=== PATIENT | male | born 1950 | race Caucasian/White ===

== ENCOUNTER 2017-07-24 12:01 | Emergency (ER) | payer BC ==
[~2017-07-24] VITALS: Ht 177.8 cm; Wt 140.8 kg
[~2017-07-24 12:01] MED LIST: ASCA500 PO; ASPCH81 PO; FRS/40 PO; LISI-729 PO; MULT-506 PO; OMEG10007 PO; POTA20TA16 PO; VERA120T15 PO; VITA100C4 PO
[2017-07-24 12:11] VITALS: TEMP 36.7; Ht 177.8 cm; Wt 140.8 kg
[2017-07-24] MEDS ORDERED: SIMV20TA2 PO (13:04)
[2017-07-24] MEDS ORDERED: DIPH1TAB87 PO (13:04)
[2017-07-24] MEDS ORDERED: SPIR25TA PO (13:04)
--- NOTE | 2017-07-24 13:26 | EMERGENCY ROOM VISIT NOTE ---
ED Visit Note First contact with patient: 12:19 CHIEF COMPLAINT: Skin rash below his eyes HISTORY OF PRESENT ILLNESS: This 67-year-old male presents the ER with chief complaint of redness, swelling, burning and mild pruritus under both his eyes. The patient states his eyes themselves are fine. The patient denies any visual changes. The patient states the symptoms started on Thursday. He tried antibiotic ointment and took Benadryl for the itch. He states the Benadryl helped the itch but the antibiotic ointment seemed to make the burning worse on his face. The patient states that he has had this once in the past 8 years ago and they never found out what it was. He states he took some type of antibiotic and several days later went away. The patient denies any new environmental exposures or any new glasses. REVIEW OF SYSTEMS: 6 system review was performed and was negative unless stated otherwise in history of present illness. PMH: Hypertension, heart disease, kidney disease, heart valve placement SOCIAL HISTORY: Patient lives with his brother. The patient admits to tobacco use and occasional alcohol use. PHYSICAL EXAM: Vital Signs: Were reviewed See nurses' notes. GEN.: 67-year-old white male appears in no acute distress. MENTAL Status: Alert and oriented 3. FACE: The patient has erythema and edema over both infraorbital regions bilaterally. There is some dry scaling noted bilaterally. There is slight increased temperature to touch. The remainder of the skin is clear. EMERGENCY COURSE: The patient was evaluated by myself and independently by Dr. Bridges who agrees with treatment plan. Dr. Bridges had consulted dermatology with some photos of the patient and they felt that this was contact dermatitis. They also recommended treatment with Vaseline, avoid fragrance soaps. DIAGNOSIS: Contact dermatitis DISCHARGE INSTRUCTIONS & TREATMENT: Continue Benadryl as needed for itch. Apply Vaseline to the area at least once daily in the evening. Avoid any fragrance soaps or shampoos. Cover that area if you're going to be out in the cold environment. If symptoms persist or worsen, follow-up with your family doctor for referral to dermatology. Current/Historical Medications Scheduled Ascorbic Acid (Vitamin C *), 500 MG PO QAM Aspirin (Aspirin Tab-Chewable *), 81 MG PO QAM Diphenhydramine Hcl (Benadryl Allergy), 25 MG PO Q4H Fish Oil (Grawn-3), 1 CAP PO QAM Furosemide (Lasix), 40 MG PO HS Multivitamin (Multivitamin), 1 TAB PO QAM Simvastatin (Zocor), 20 MG PO QPM Spironolactone (Aldactone), 25 MG PO QAM Allergies Coded Allergies: No Known Allergies (Verified , NONE, 07/24/17) Vital Signs Date Time Temp Pulse Resp B/P (MAP) Pulse Ox O2 Delivery O2 Flow Rate FiO2 07/24/17 12:11 36.7 94 18 144/98 96 Room Air Departure Information Referrals Jean-Claude Bassett M.D. (PCP) Patient Instructions My [facility]
[2017-07-24 13:37] VITALS: BP 139/82; PULSE 80; O2SAT 96
--- NOTE | 2017-07-24 17:47 | EMERGENCY ROOM VISIT NOTE ---
ED Visit Note First contact with patient: 12:19 I have personally seen and evaluated the patient with the PA. I agree with the diagnosis and management decisions and have been personally involved in the case. After my evaluation of the patient's rash, it seems that this is likely a contact irritant. The patient was advised to use a Vaseline ointment and a mild soap to wash. He will follow-up with his physician for reevaluation and return to the ER for worsening of symptoms or any medical concerns. Please see Luz Maria Deng PA-C's notes for further details of the history, physical and visit.
== END 2017-07-24 13:38 | disposition home or self-care (01) ==
LOC: C.EDB 12:02 → C.EDD 13:38
DX: L25.9 Unspecified contact dermatitis, unspecified cause (principal); I10 Essential (primary) hypertension; Z95.2 Presence of prosthetic heart valve; Z72.0 Tobacco use; Z79.82 Long term (current) use of aspirin; Z79.899 Other long term (current) drug therapy

== ENCOUNTER 2018-09-07 13:30 | Inpatient (IN) ==
[2018-09-07] MEDS ORDERED: PANTOprazole 80 MG in DEXTROSE 5% 100 ML IV ONE (14:12)
[2018-09-07] MEDS ORDERED: PANTOprazole 40 MG in DEXTROSE 5% 100 ML IV SCH (14:15)
[2018-09-07 14:28] LABS: Basophils # (auto) 0.03 K/uL (0-0.2); Basophils % (auto) 0.4 %; Eosinophils # (auto) 0.42 K/uL (0-0.5); Eosinophils % (auto) 5.4 %; Hematocrit (blood only) 31.1 % (42-52); Hemoglobin 9.3 g/dL (14.0-18.0); Immature Granulocytes # (auto) 0.01 K/uL (0.00-0.02); Immature Granulocytes % (auto) 0.1 %; Lymphocytes # (auto) 1.96 K/uL (1.2-3.4); Lymphocytes % (auto) 25.4 %; Mean Corpuscular Hgb Conc 29.9 g/dL (32-36); Mean Corpuscular Volume 82.5 fL (80-100); Mean Platelet Volume 9.8 fL (7.4-10.4); Monocytes # (auto) 0.79 K/uL (0.11-0.59); Monocytes % (auto) 10.2 %; Neutrophils # (auto) 4.51 K/uL (1.4-6.5); Neutrophils % (auto) 58.5 %; Nucleated RBC # (auto) 0.04 K/uL (0-0); Nucleated RBC % (auto) 0.5 %; Platelet Count 288 K/uL (130-400); RDW Coefficient of Variation 15.1 % (11.5-14.5); RDW Standard Deviation 45.6 fL (36.4-46.3); Red Blood Count 3.77 M/uL (4.7-6.1); White Blood Count 7.72 K/uL (4.8-10.8)
[2018-09-07 14:42] LABS: INR 1.1 (0.9-1.1); Partial Thromboplastin Time 25.8 Seconds (21.0-31.0); Prothrombin Time 11.5 Seconds (9.0-12.0)
[2018-09-07 14:45] LABS: Alanine Aminotransferase 14 U/L (12-78); Albumin Level 2.3 gm/dl (3.4-5.0); Aspartate Aminotransferase 13 U/L (15-37); BUN Creatinine Ratio 21.1 (10-20); Blood Urea Nitrogen 22 mg/dl (7-18); Calcium 8.1 mg/dl (8.5-10.1); Carbon Dioxide 29 mmol/L (21-32); Chloride 107 mmol/L (98-107); Est GFR (African American) 82.6; Est GFR (Non-African American) 71.3; Glucose 68 mg/dl (70-99); Potassium 4.4 mmol/L (3.5-5.1); Sodium 140 mmol/L (136-145)
[2018-09-07 14:47] LABS: Albumin Globulin Ratio 0.6 (0.9-2); Alkaline Phosphatase 73 U/L (45-117); Bilirubin,Total 0.3 mg/dl (0.2-1); Globulin 3.9 gm/dl (2.5-4.0); Total Protein 6.2 gm/dl (6.4-8.2)
--- NOTE | 2018-09-07 15:17 | XRay Report ---
SINGLE VIEW CHEST CLINICAL HISTORY: GI bleeding. FINDINGS: An AP, portable, upright chest radiograph is compared to study dated 08/11/2018. The examina tion is degraded by portable technique and patient rotation. The patient is status post midline ster notomy. The heart is enlarged and there is atherosclerotic calcification of the thoracic aorta. There is pulmonary vascular congestion and interstitial edema. There are small pleural effusions with biba silar consolidation. No pneumothorax is seen. The skeletal structures are osteopenic. The bony thorax is grossly intact. Degenerative changes noted in the shoulders and thoracic spine. IMPRESSION: 1. Cardiomegaly with evidence of congestive failure and interstitial edema. 2. There are small pleural effusions with bibasilar consolidation. This could represent atelectasis a nd/or pneumonia and clinical correlation will be required. Electronically signed by: Denzel Quarles M.D. 09/07/2018 3:16 PM
--- NOTE | 2018-09-07 15:26 | History & Physical Report ---
Date of Service September 07, 2018 History of Present Illness Primary Care Provider: Erika Negro Allergies Allergy/AdvReac Type Severity Reaction Status Date / Time No Known Allergies Allergy NONE Verified 08/11/18 11:48 Home Medications Home Medications Medication Instructions Recorded Confirmed Type amoxicillin 4 cap PO DIRECTED 08/11/18 08/11/18 History aspirin [Aspirin Low Dose] 81 mg PO DAILY 08/11/18 08/11/18 History carvedilol 6.25 mg PO BID 08/11/18 08/11/18 History folic acid 400 mcg PO DAILY 08/11/18 08/11/18 History furosemide 40 mg PO DAILY 08/11/18 08/11/18 History uvesyrve-qre-WE-lycopen-lutein 1 tab PO DAILY 08/11/18 08/11/18 History [Complete Multi 50+] simvastatin 40 mg PO HS 08/11/18 08/11/18 History spironolactone 25 mg PO DAILY 08/11/18 08/11/18 History Past Med/Surg History Medical History HTN (hypertension) (Chronic) Heart disease (Chronic) Kidney disease (Chronic) Surgical History H/O aortic valve replacement (Resolved) Family History Other Colon cancer Social History Preferred Language: Kazakh Current Living Situation: Family Feels Safe at Home: Yes Smoking Status: Former smoker Physical Exam Vital Signs (Past 24 Hours): Last Vital Signs Temp 36.7 C 09/07/18 13:32 Pulse 55 L 09/07/18 14:59 Resp 22 09/07/18 14:59 BP 136/81 09/07/18 14:59 Pulse Ox 96 09/07/18 14:59 Results & Data Diagnostic Findings SINGLE VIEW CHEST CLINICAL HISTORY: GI bleeding. FINDINGS: An AP, portable, upright chest radiograph is compared to study dated 08/11/2018. The examination is degraded by portable technique and patient rotation. The patient is status post midline sternotomy. The heart is enlarged and there is atherosclerotic calcification of the thoracic aorta. There is pulmonary vascular congestion and interstitial edema. There are small pleural effusions with bibasilar consolidation. No pneumothorax is seen. The skeletal structures are osteopenic. The bony thorax is grossly intact. Degenerative changes noted in the shoulders and thoracic spine. IMPRESSION: 1. Cardiomegaly with evidence of congestive failure and interstitial edema. 2. There are small pleural effusions with bibasilar consolidation. This could represent atelectasis and/or pneumonia and clinical correlation will be required. ECG Additional Comments: 07-SEP-2018 14:55:17 [facility] Atrial fibrillation Rightward axis Non-specific intra-ventricular conduction block Nonspecific T wave abnormality Abnormal ECG When compared with ECG of 11-AUG-2018 11:06, Significant changes have occurred 25mm/s 10mm/mV 150Hz 8.0 SP2 12SL 241 GENEVIEVE: 10 Referred by: REFERRED SELF Unconfirmed Vent. rate 66 BPM PA interval * ms QRS duration 126 ms QT/QTc 448/469 ms P-R-T axes * 108 211
--- NOTE | 2018-09-07 16:13 | History & Physical Report ---
Date of Service September 07, 2018 Assessment & Plan (1) GI bleed: -Admit the patient to telemetry -Hemoglobin of 9.3, BUN elevated at 21 -Trend hemoglobin Q6H - GI consult, Protonix 40 mg IV BID -Starting to be a Jain, therefore patient refusing any whole blood or blood products. -Continue IVF's 125 ml/hr - n.p.o. for now (2) Anemia: Unknown cause of chronic GI bleeding. Patient does report history of hemorrhoids. Documentation of refusal of colonoscopies in the past. This will need to be discussed with patient once bleed is resolved, and possibly have inpatient versus outpatient scope (3) Chronic anticoagulation: -Eliquis 5 mg bid on hold with GI bleed. This was started for new onset A. fib during most recent hospital stay at OSH. (4) Seizure: -We will continue on Keppra 500 mg bid (5) DM type 2 (diabetes mellitus, type 2): Patient's most recent A1c was equal to 11.2 during OSH hospitalization. - Reduce Levemir 22 units qpm in half for tonights dose: 11 U tonight, with NPO status. - ISS with Accu-Cheks Achs -Once allowed diet DM/HH diet (6) Afib: - Holding aspirin and eliquis as above. - EKG reviewed. - Cardiology consulted (7) Aortic stenosis: (8) H/O aortic valve replacement: (9) Nonischemic cardiomyopathy: -Patient had TTE completed during OSH stay, which showed reduced EF of 45% but no thrombus. -Follows with Dr. Leone -We will continue on carvedilol, spironolactone. (10) HTN (hypertension): -Continue spironolactone 25 mg daily, carvedilol 6.25 mg twice daily -She appears to be significantly volume overloaded and bilateral lower extremities, he was recently told to stop taking Lasix upon discharge from OSH - Lasix IV 40 mg x 1 dose for leg swelling. Patient does not have a history of CHF he has followed with Dr. Leone in the past for known aortic stenosis status post valve replacement. (11) HLD (hyperlipidemia): Continue statin therapy (12) CVA (cerebral vascular accident): -Acute infarct in the left MCA on 08/11 which then converted to left posterior parietal lobe with petechial hemoconversion. Patient has residual slurred speech, slow speech at baseline. Will consult speech for continued inpatient therapy. -Holding Eliquis and aspirin in the setting of GI bleed (13) Urinary retention: -Continue Flomax (14) DVT prophylaxis: Teds, scds, no chemical prophylaxis with GI bleed. History of Present Illness Chief Complaint: GI bleed Primary Care Provider: Erika Negro This is a 68-year-old male with past medical history of new onset A. fib, DM type II, seizure disorder, HLD, HTN, history of aortic valve replacement 8 years ago, aortic stenosis, internal hemorrhoids and 6 months of ongoing hematochezia. The patient was recently admitted to [facility] from 08/11/18 to 08/17/18 due to significant metabolic derangements, CVA new onset A. fib, DKA and seizure. Patient required being intubated for 24 hours and 6 was successfully extubated on 08/12. During that admission the patient was started on Eliquis 5 mg BID and aspirin 81 mg daily for CHADsVASC score of 6. Patient's history does include family history of colon cancer however has refused colonoscopies in the past. He has had ongoing hematochezia for 6 months however has remained fairly hemodynamically stable. Today the patient developed increased right lower quadrant abdominal pain which made him more concerned. He also noticed increasing shortness of breath, dyspnea on exertion, weakness and generalized fatigue in the past few days. He denies dark or tarry stools. Denies nausea or vomiting. Patient's oral intake has been at its baseline. Hemoglobin on 08/11/18 at [facility] was 13.6, on the day of discharge from [facility] was 10.6. Today the patient's hemoglobin is 9.3. The patient is studying to be a Jain, therefore is refusing all whole blood and blood products. Allergies Allergy/AdvReac Type Severity Reaction Status Date / Time No Known Allergies Allergy NONE Verified 08/11/18 11:48 Home Medications Home Medications Medication Instructions Recorded Confirmed Type amoxicillin 4 cap PO DIRECTED 08/11/18 09/07/18 History aspirin [Aspirin Low Dose] 81 mg PO DAILY 08/11/18 09/07/18 History carvedilol 6.25 mg PO BID 08/11/18 09/07/18 History folic acid 400 mcg PO DAILY 08/11/18 09/07/18 History vxpuhlyj-ute-PN-lycopen-lutein 1 tab PO DAILY 08/11/18 09/07/18 History [Complete Multi 50+] spironolactone 25 mg PO DAILY 08/11/18 09/07/18 History acetaminophen [Tylenol] 650 mg PO Q4 PRN 09/07/18 09/07/18 History apixaban [Eliquis] 5 mg PO BID 09/07/18 09/07/18 History ascorbic acid (vitamin C) [Vitamin 500 mg PO DAILY 09/07/18 09/07/18 History C] hydrocortisone [Proctosol HC] 1 applic VA BID 09/07/18 09/07/18 History insulin detemir U-100 [Levemir 22 unit SUBCUT QPM 09/07/18 09/07/18 History U-100 Insulin] insulin lispro [Humalog U-100 6 unit SUBCUT TIDM 09/07/18 09/07/18 History Insulin] levetiracetam [Keppra] 500 mg PO BID 09/07/18 09/07/18 History omega 0-msv-luo-fish oil [Fish Oil] 1 cap PO DAILY 09/07/18 09/07/18 History omeprazole 20 mg PO DAILY 09/07/18 09/07/18 History simvastatin 20 mg PO PM 09/07/18 09/07/18 History tamsulosin [Flomax] 0.4 mg PO QPM 09/07/18 09/07/18 History Past Med/Surg History Medical History HTN (hypertension) (Chronic) Heart disease (Chronic) Kidney disease (Chronic) Surgical History H/O aortic valve replacement (Resolved) Family History Other Colon cancer Social History Communication Ability: Effective [employer] Required: No Beliefs That Will Affect Care: Anabaptist Current Living Situation: Family Other Information That Helps Us Care for You: No Feels Safe at Home: Yes Safety Concerns: Feels Safe At This Time Smoking Status: Never smoker Hx Alcohol Use: No Hx Substance Use: No Review of Systems Constitutional: No fever, sweats or chills Eyes: No diplopia, no worsening or blurred vision ENT: normal hearing, no trouble swallowing Respiratory: No cough, sputum, dyspnea at rest or on exertion Cardiovascular: No chest pain, tightness or palpitations Abdomen: As per HPI. Musculoskeletal: No joint pain, calf pain, swelling Neurologic: No weakness, numbness/tingling, or balance problems Psychiatric: No anxiety or depression Skin: No rash or itch Physical Exam Vital Signs (Past 24 Hours): Last Vital Signs Temp 36.7 C 09/07/18 13:32 Pulse 55 L 09/07/18 14:59 Resp 22 09/07/18 14:59 BP 136/81 09/07/18 14:59 Pulse Ox 96 09/07/18 14:59 Physical Exam: General: awake, alert, no apparent distress, + obese Head: Normocephalic, atraumatic ENT: PERRL, EOMI, no pharyngeal exudate, mucous membranes moist Chest: Clear to auscultation, on room air, no adventitious breath sounds Cardiac: irregularly irregular, HR in mid 50s, +DANELLE no JVD, normal peripheral pulses, good capillary refill Abdominal: NABS x 4 quadrants, soft, nontender to palpation, no rebound, guarding or tenderness Extremities: Normal inspection, 2+ peripheral edema, no erythema, calfs nontender to palpation Psych: Normal mood and affect Neuro: AAO x 3, speech is slowed and somewhat slurred but family and pt report this is baseline, no motor deficits Constitutional: WD/WN, vitals as above Eyes: normal visual ruff by confrontation and + anicteric sclerae Neck: normal visual inspection and trachea midline Respiratory: normal respiratory effort, lungs clear to auscultation Cardiovascular: Rate/Rhythm: regular rate; + abnormal rhythm Gastrointestinal (Abdomen): Inspection/Auscultation: abdomen not distended Percussion/Palpation: abdomen soft; abdomen nontender Musculoskeletal: Head/Neck/Chest: normocephalic and head atraumatic 2+ pitting LE edema, + pedal pulses Skin: no rashes, warm and dry Neurologic: awake; not confused Speech / Cognition: normal speech Psychiatric: A+Ox3, euthymic affect Lymphatic: Exam as done by Liberty Camargo DO Results & Data Diagnostic Findings SINGLE VIEW CHEST CLINICAL HISTORY: GI bleeding. FINDINGS: An AP, portable, upright chest radiograph is compared to study dated 08/11/2018. The examination is degraded by portable technique and patient rotation. The patient is status post midline sternotomy. The heart is enlarged and there is atherosclerotic calcification of the thoracic aorta. There is pulmonary vascular congestion and interstitial edema. There are small pleural effusions with bibasilar consolidation. No pneumothorax is seen. The skeletal structures are osteopenic. The bony thorax is grossly intact. Degenerative changes noted in the shoulders and thoracic spine. IMPRESSION: 1. Cardiomegaly with evidence of congestive failure and interstitial edema. 2. There are small pleural effusions with bibasilar consolidation. This could represent atelectasis and/or pneumonia and clinical correlation will be required. Electronically signed by: Denzel Quarles M.D. 09/07/2018 3:16 PM ECG Additional Comments: 07-SEP-2018 14:55:17 [facility] Atrial fibrillation Rightward axis Non-specific intra-ventricular conduction block Nonspecific T wave abnormality Abnormal ECG When compared with ECG of 11-AUG-2018 11:06, Significant changes have occurred 25mm/s 10mm/mV 150Hz 8.0 SP2 12SL 241 GENEVIEVE: 10 Referred by: REFERRED SELF Unconfirmed Vent. rate 66 BPM VA interval * ms QRS duration 126 ms QT/QTc 448/469 ms P-R-T axes * 108 211 Code Status & VTE Plan Code Status DNR Supervising Physician Co-Signing Physician Notes Pt seen and examined by me. He states he had a bowel movement since admission and did not see any blood in it. Still with some rectal pain. No hx of abd with this episode. Denies chest pain or SOB. Had been tolerating PO without issue. Agree with HPI/ROS as noted by PA See above for my exam in PE section Agree with plan as outlined above rectal pain and bloody stools Planning for GI c/s No prior hx of c-scope Pt is Jain and will not agree to transfusion Holding eliquis (1) GI bleed GI bleed type/associated pathology: unspecified gastrointestinal hemorrhage type Qualified Code(s): K92.2 - Gastrointestinal hemorrhage, unspecified (2) Anemia Anemia type: unspecified type Qualified Code(s): D64.9 - Anemia, unspecified
[2018-09-07] MEDS ORDERED: DEXTROSE 50% 50 ML SYRINGE IV PRN (16:21)
[2018-09-07] MEDS ORDERED: GLUCOSE 10 TABS/TUBE PO PRN (16:21)
[2018-09-07] MEDS ORDERED: GLUCAGON FOR INJ 1 MG VIAL SQ PRN (16:21)
[2018-09-07] MEDS ORDERED: FUROSEMIDE 40 MG in SYRINGE 0 ML IV ONE (18:00)
[2018-09-07] MEDS ORDERED: ONDANSETRON INJ 2 MG/ML 2 ML VIAL IV PRN (18:19)
[2018-09-07] MEDS ORDERED: GLUCOSE 40% GEL 15 GM TUBE PO PRN (18:19)
[2018-09-07] MEDS ORDERED: ACETAMINOPHEN 325 MG TAB PO PRN (18:19)
[2018-09-07] MEDS ORDERED: CARBOHYDRATES FOR HYPOGLYCEMIA PO PRN (18:19)
[2018-09-07] MEDS ORDERED: INSULIN ASPART 100 UNITS/ML 3 ML PEN SC SCH ×2 (18:19→20:00)
[2018-09-07] MEDS: SODIUM CHLORIDE 0.9% 1000ML 1,000 ML IV SCH (19:25)
[2018-09-07] MEDS: CARVEDILOL 6.25 MG TAB PO SCH (20:19)
[2018-09-07] MEDS: SIMVASTATIN 20 MG TAB PO SCH (20:20)
[2018-09-07] MEDS: TAMSULOSIN HCL 0.4 MG CAP PO SCH (20:20)
[2018-09-07] MEDS: PANTOprazole 40 MG in SYRINGE 0 ML IV SCH (20:20)
[2018-09-07] MEDS: levETIRAcetam 500 MG TAB PO SCH (20:20)
[2018-09-07] MEDS: INSULIN DETEMIR FLEXPEN/FLEX TOUCH 100 UNITS/ML 3ML SQ SCH (20:26)
--- NOTE | 2018-09-07 21:44 | Emergency Department Note ---
Entered by Hao Valentin acting as a scribe for Jocelyn Bridges MD History of Present Illness General Chief complaint: Diarrhea Stated complaint: DIARRHEA, BLOODY STOOLS Source: patient and family History of Present Illness Onset (ago): day(s) 1 Location: buttocks (rectum) Pain Consistency: + other (persistent) Quality: + other (rectal pain) Associated symptoms: + other (diarrhea, rectal bleeding; had stroke and diagnosed with A-fib last month) The patient is a 68 year old male who presents to the Emergency Room with complaints of persistent rectal pain beginning yesterday. He states that he had two bowel movements today, and they were brown with red blood. The patient reports that he has been bleeding from the rectum for the past 5-6 months, and he states that this bleeding has been gradually worsening over that time period. He notes that this is the first time he has had associated rectal pain. He notes that he has also been having diarrhea over the past few months. Family reports that the patient was sent from the ER to [place] on August 11 for stroke and hyperglycemia, and he is now currently at [facility] for rehabilitation. They note that he was diagnosed with atrial fibrillation while at [place] and is currently on Eliquis and aspirin. They report a history of colon cancer in several family members and state that the patient has never had a colonoscopy. Home Medications Home Medications Medication Instructions Recorded Confirmed Type amoxicillin 4 cap PO DIRECTED 08/11/18 09/07/18 History aspirin [Aspirin Low Dose] 81 mg PO DAILY 08/11/18 09/07/18 History carvedilol 6.25 mg PO BID 08/11/18 09/07/18 History folic acid 400 mcg PO DAILY 08/11/18 09/07/18 History nuhxjdva-mqh-HR-lycopen-lutein 1 tab PO DAILY 08/11/18 09/07/18 History [Complete Multi 50+] spironolactone 25 mg PO DAILY 08/11/18 09/07/18 History acetaminophen [Tylenol] 650 mg PO Q4 PRN 09/07/18 09/07/18 History apixaban [Eliquis] 5 mg PO BID 09/07/18 09/07/18 History ascorbic acid (vitamin C) [Vitamin 500 mg PO DAILY 09/07/18 09/07/18 History C] hydrocortisone [Proctosol HC] 1 applic [place] BID 09/07/18 09/07/18 History insulin detemir U-100 [Levemir 22 unit SUBCUT QPM 09/07/18 09/07/18 History U-100 Insulin] insulin lispro [Humalog U-100 6 unit SUBCUT TIDM 09/07/18 09/07/18 History Insulin] levetiracetam [Keppra] 500 mg PO BID 09/07/18 09/07/18 History omega 4-vvg-ojg-fish oil [Fish Oil] 1 cap PO DAILY 09/07/18 09/07/18 History omeprazole 20 mg PO DAILY 09/07/18 09/07/18 History simvastatin 20 mg PO PM 09/07/18 09/07/18 History tamsulosin [Flomax] 0.4 mg PO QPM 09/07/18 09/07/18 History Allergies Allergy/AdvReac Type Severity Reaction Status Date / Time No Known Allergies Allergy NONE Verified 08/11/18 11:48 Past Med/Surg History Medical History Aortic stenosis Nonischemic cardiomyopathy CVA (cerebral vascular accident) HLD (hyperlipidemia) HTN (hypertension) Urinary retention DM type 2 (diabetes mellitus, type 2) Seizure GI bleed (Acute) Anemia (Acute) Chronic anticoagulation (Acute) Afib HTN (hypertension) (Chronic) Heart disease (Chronic) Kidney disease (Chronic) Surgical History H/O aortic valve replacement H/O aortic valve replacement (Resolved) Family History Other Colon cancer Social History Communication Ability: Effective Marshmallow Maker Required: No Beliefs That Will Affect Care: Buddhist Current Living Situation: Family Other Information That Helps Us Care for You: No Feels Safe at Home: Yes Safety Concerns: Feels Safe At This Time Smoking Status: Never smoker Hx Alcohol Use: No Hx Substance Use: No Review of Systems See HPI for pertinent positives & negatives. and A total of 10 systems reviewed and were otherwise negative Physical Exam Vital Signs Vital Signs - 24 hr 09/07/18 23:41 09/08/18 03:23 09/08/18 07:09 Temperature 36.6 C 36.5 C 36.5 C Temperature Source Oral Oral Oral Pulse Rate Pulse Rate [Finger] 75 67 64 Respiratory Rate 19 19 18 Blood Pressure [Left Arm] Blood Pressure [Right Arm] 117/67 120/80 105/68 Blood Pressure Mean [Left Arm] Blood Pressure Mean [Right Arm] 83 93 80 Blood Pressure Position [Left Arm] Blood Pressure Position [Right Arm] Lying Lying Lying Pulse Oximetry 95 91 93 Oxygen Delivery Method Room Air Room Air Room Air 09/08/18 08:00 09/08/18 11:30 09/08/18 15:25 Temperature 36.7 C 36.7 C Temperature Source Oral Oral Pulse Rate 81 Pulse Rate [Finger] 69 73 Respiratory Rate 16 18 Blood Pressure [Left Arm] 115/76 99/58 L Blood Pressure [Right Arm] Blood Pressure Mean [Left Arm] 89 71 Blood Pressure Mean [Right Arm] Blood Pressure Position [Left Arm] Sitting Lying Blood Pressure Position [Right Arm] Pulse Oximetry 98 98 Oxygen Delivery Method Room Air Room Air 09/08/18 16:00 Temperature Temperature Source Pulse Rate 66 Pulse Rate [Finger] Respiratory Rate Blood Pressure [Left Arm] Blood Pressure [Right Arm] Blood Pressure Mean [Left Arm] Blood Pressure Mean [Right Arm] Blood Pressure Position [Left Arm] Blood Pressure Position [Right Arm] Pulse Oximetry Oxygen Delivery Method Vital signs reviewed. General: Chronically ill-appearing and pale male, in no significant distress. HEENT: No scleral icterus, PERRLA, neck supple. Atraumatic. Cardiovascular: Controlled rate and irregular rhythm, no extra sounds. Pulmonary: Clear to auscultation bilaterally, normal work of breathing. Abdomen: Obese, soft, nontender, nondistended, positive bowel sounds. Rectal: Thickened rectal mucosa, guaiac positive brown stool. Musculoskeletal: Atraumatic, no peripheral edema. Neurologic: Patient awake alert and oriented x 3 Skin: Warm, dry, pale, no rash Course 1409: Past medical records reviewed. The patient was evaluated in room C12A, and a complete history and physical examination were performed. 1503: I updated the patient and family on results and the plan for hospitalization. 1507: I consulted Dr. Camargo [facility] Hospitalist. She will reevaluate the patient for hospitalization. Consultations Consultation #1: I consulted Dr. Camargo [facility] Hospitalist. She will reevaluate the patient for hospitalization. Time: 15:07 Administered Medications Carvedilol (Coreg) 6.25 mg PO BID JENNIFFER Stop: 10/07/18 20:59 Last Admin: 09/08/18 20:17 Dose: 6.25 mg Documented by: [id number] Admin: 09/08/18 09:14 Dose: 6.25 mg Documented by: [id number] Admin: 09/07/18 20:19 Dose: 6.25 mg Documented by: [id number] Dextrose (Dextrose 50%) 25 - 50 ml IV UD PRN; Protocol PRN Reason: Hypoglycemia Protocol Stop: 10/07/18 16:20 Last Admin: 09/07/18 16:33 Dose: 50 ml Documented by: [id number] Pantoprazole Sodium 40 mg/ (Syringe) 10 mls @ 5 mls/min IV BID JENNIFFER Stop: 10/07/18 20:59 Last Admin: 09/08/18 20:15 Dose: 5 mls/min Documented by: [id number] Admin: 09/08/18 09:14 Dose: 5 mls/min Documented by: [id number] Admin: 09/07/18 20:20 Dose: 5 mls/min Documented by: [id number] Insulin Aspart (Novolog Flexpen) 0 units SC Q6 JENNIFFER Stop: 10/08/18 00:00 Last Admin: 09/08/18 18:26 Dose: Not Given Documented by: [id number] Cosigned by: [id number] Admin: 09/08/18 13:27 Dose: Not Given Documented by: [id number] Cosigned by: [id number] Admin: 09/08/18 06:36 Dose: Not Given Documented by: [id number] Cosigned by: [id number] Admin: 09/07/18 23:50 Dose: Not Given Documented by: [id number] Cosigned by: [id number] Insulin Detemir (Levemir Flextouch) 11 units SQ QPM JENNIFFER Stop: 10/07/18 20:59 Last Admin: 09/08/18 20:21 Dose: 11 units Documented by: [id number] Cosigned by: [id number] Admin: 09/07/18 20:26 Dose: Not Given Documented by: [id number] Levetiracetam (Keppra) 500 mg PO BID JENNIFFER Stop: 10/07/18 20:59 Last Admin: 09/08/18 20:16 Dose: 500 mg Documented by: [id number] Admin: 09/08/18 09:14 Dose: 500 mg Documented by: [id number] Admin: 09/07/18 20:20 Dose: 500 mg Documented by: [id number] Polyethylene Glycol/Electrolytes (Golytely) 8 dose PO 0700,1999 JENNIFFER Stop: 09/09/18 07:01 Last Admin: 09/08/18 20:10 Dose: 8 dose Documented by: [id number] Simvastatin (Zocor) 20 mg PO PM JENNIFFER Stop: 10/07/18 20:59 Last Admin: 09/08/18 20:16 Dose: 20 mg Documented by: [id number] Admin: 09/07/18 20:20 Dose: 20 mg Documented by: [id number] Spironolactone (Aldactone) 25 mg PO DAILY JENNIFFER Stop: 10/08/18 08:59 Last Admin: 09/08/18 09:14 Dose: 25 mg Documented by: [id number] Tamsulosin HCl (Flomax) 0.4 mg PO QPM JENNIFFER Stop: 10/07/18 20:59 Last Admin: 09/08/18 20:16 Dose: 0.4 mg Documented by: [id number] Admin: 09/07/18 20:20 Dose: 0.4 mg Documented by: [id number] Discontinued Medications Pantoprazole Sodium 80 mg/ (Dextrose) 100 mls @ 400 mls/hr IV NOW ONE Stop: 09/07/18 14:26 Last Infusion: 09/07/18 15:31 Dose: 0 mls/hr Documented by: [id number] Admin: 09/07/18 15:13 Dose: 400 mls/hr Documented by: [id number] Pantoprazole Sodium 40 mg/ (Dextrose) 100 mls @ 20 mls/hr IV Q5H JENNIFFER Stop: 10/07/18 14:14 Last Infusion: 09/07/18 20:53 Dose: 0 mg/hr, 0 mls/hr Documented by: [id number] Admin: 09/07/18 15:40 Dose: 8 mg/hr, 20 mls/hr Documented by: [id number] Furosemide 40 mg/ Syringe 4 mls @ 4 mls/min IV ONE ONE Stop: 09/07/18 18:01 Last Admin: 09/07/18 19:26 Dose: 4 mls/min Documented by: [id number] Sodium Chloride (Nss 1000ml) 1,000 mls @ 75 mls/hr IV .[id number] [facility] Stop: 09/08/18 19:59 Last Admin: 09/08/18 15:10 Dose: 75 mls/hr Documented by: [id number] Infusion: 09/08/18 15:10 Dose: 75 mls/hr Documented by: [id number] Infusion: 09/08/18 09:00 Dose: 75 mls/hr Documented by: [id number] Admin: 09/08/18 05:17 Dose: 125 mls/hr Documented by: [id number] Infusion: 09/08/18 05:17 Dose: 0 mls/hr Documented by: [id number] Infusion: 09/07/18 22:56 Dose: 125 mls/hr Documented by: [id number] Infusion: 09/07/18 21:38 Dose: 0 mls/hr Documented by: [id number] Admin: 09/07/18 19:25 Dose: 125 mls/hr Documented by: [id number] Insulin Aspart (Novolog Flexpen) 0 units SC ACHS [facility] Stop: 10/07/18 18:18 Last Admin: 09/07/18 19:36 Dose: Not Given Documented by: [id number] Cosigned by: [id number] Medical Decision Making Differential Diagnosis Differential diagnosis: Etiologies such as esophagitis, variceal bleed, Bertha-Burnham tear, gastritis, peptic ulcer disease, AVM, inflammatory bowel disease, ischemia, diverticulosis, colitis, malignancy, coagulopathy, thrombocytopenia, fissure, hemorrhoid, epistaxis , as well as others were entertained. Medical Records Attestation: I reviewed the patient's medical records. Home Medications Current Medication List: was personally reviewed by me Laboratory Data Attestation: I reviewed the patient's lab results. Result diagrams: 09/08/18 13:00 09/08/18 06:51 Lab Results 09/07/18 09/07/18 09/07/18 Range/Units 13:50 13:50 13:50 WBC 7.72 (4.8-10.8) K/uL RBC 3.77 L (4.7-6.1) M/uL Hgb 9.3 L (14.0-18.0) g/dL Hct 31.1 L (42-52) % MCV 82.5 (80-100) fL MCH 24.7 L (25-34) pg MCHC 29.9 L (32-36) g/dL RDW Std Deviation 45.6 (36.4-46.3) fL RDW Coeff of Amandeep 15.1 H (11.5-14.5) % Plt Count 288 (130-400) K/uL MPV 9.8 (7.4-10.4) fL Immature Gran % (Auto) 0.1 % Neut % (Auto) 58.5 % Lymph % (Auto) 25.4 % [place] % (Auto) 10.2 % Eos % (Auto) 5.4 % Baso % (Auto) 0.4 % Immature Gran # (Auto) 0.01 (0.00-0.02) K/uL Neut # (Auto) 4.51 (1.4-6.5) K/uL Lymph # (Auto) 1.96 (1.2-3.4) K/uL [place] # (Auto) 0.79 H (0.11-0.59) K/uL Eos # (Auto) 0.42 (0-0.5) K/uL Baso # (Auto) 0.03 (0-0.2) K/uL Absolute Nucleated RBC 0.04 H (0-0) K/uL Nucleated RBC % (auto) 0.5 % PT 11.5 (9.0-12.0) Seconds INR 1.1 (0.9-1.1) APTT 25.8 (21.0-31.0) Seconds PTT Ratio 1.0 Sodium (136-145) mmol/L Potassium (3.5-5.1) mmol/L Chloride (98-107) mmol/L Carbon Dioxide (21-32) mmol/L Anion Gap (3-11) BUN (7-18) mg/dl Creatinine (0.6-1.4) mg/dl Est Cr Clr Drug Dosing Est GFR ( Amer) Est GFR (Non-Af Amer) BUN/Creatinine Ratio (10-20) Glucose (70-99) mg/dl POC Glucose (70-99) Calcium (8.5-10.1) mg/dl Total Bilirubin (0.2-1) mg/dl AST (15-37) U/L ALT (12-78) U/L Alkaline Phosphatase (45-117) U/L Total Protein (6.4-8.2) gm/dl Albumin (3.4-5.0) gm/dl Globulin (2.5-4.0) gm/dl Albumin/Globulin Ratio (0.9-2) Lipase Cancelled Carcinoembryonic Ag (0-2.5) ng/ml Stool Occult Bld Scrn (Negative) 09/07/18 09/07/18 09/07/18 Range/Units 13:50 17:11 18:39 WBC (4.8-10.8) K/uL RBC (4.7-6.1) M/uL Hgb 9.4 L (14.0-18.0) g/dL Hct (42-52) % MCV (80-100) fL MCH (25-34) pg MCHC (32-36) g/dL RDW Std Deviation (36.4-46.3) fL RDW Coeff of Amandeep (11.5-14.5) % Plt Count (130-400) K/uL MPV (7.4-10.4) fL Immature Gran % (Auto) % Neut % (Auto) % Lymph % (Auto) % [place] % (Auto) % Eos % (Auto) % Baso % (Auto) % Immature Gran # (Auto) (0.00-0.02) K/uL Neut # (Auto) (1.4-6.5) K/uL Lymph # (Auto) (1.2-3.4) K/uL [place] # (Auto) (0.11-0.59) K/uL Eos # (Auto) (0-0.5) K/uL Baso # (Auto) (0-0.2) K/uL Absolute Nucleated RBC (0-0) K/uL Nucleated RBC % (auto) % PT (9.0-12.0) Seconds INR (0.9-1.1) APTT (21.0-31.0) Seconds PTT Ratio Sodium 140 (136-145) mmol/L Potassium 4.4 (3.5-5.1) mmol/L Chloride 107 (98-107) mmol/L Carbon Dioxide 29 (21-32) mmol/L Anion Gap 4.0 (3-11) BUN 22 H (7-18) mg/dl Creatinine 1.06 (0.6-1.4) mg/dl Est Cr Clr Drug Dosing Not Reportable Est GFR ( Amer) 82.6 Est GFR (Non-Af Amer) 71.3 BUN/Creatinine Ratio 21.1 H (10-20) Glucose 68 L (70-99) mg/dl POC Glucose 117 H (70-99) Calcium 8.1 L (8.5-10.1) mg/dl Total Bilirubin 0.3 (0.2-1) mg/dl AST 13 L (15-37) U/L ALT 14 (12-78) U/L Alkaline Phosphatase 73 (45-117) U/L Total Protein 6.2 L (6.4-8.2) gm/dl Albumin 2.3 L (3.4-5.0) gm/dl Globulin 3.9 (2.5-4.0) gm/dl Albumin/Globulin Ratio 0.6 L (0.9-2) Lipase 97 Carcinoembryonic Ag (0-2.5) ng/ml Stool Occult Bld Scrn (Negative) 09/07/18 09/07/18 09/08/18 Range/Units 19:29 23:49 00:24 WBC (4.8-10.8) K/uL RBC (4.7-6.1) M/uL Hgb 9.2 L (14.0-18.0) g/dL Hct (42-52) % MCV (80-100) fL MCH (25-34) pg MCHC (32-36) g/dL RDW Std Deviation (36.4-46.3) fL RDW Coeff of Amandeep (11.5-14.5) % Plt Count (130-400) K/uL MPV (7.4-10.4) fL Immature Gran % (Auto) % Neut % (Auto) % Lymph % (Auto) % [place] % (Auto) % Eos % (Auto) % Baso % (Auto) % Immature Gran # (Auto) (0.00-0.02) K/uL Neut # (Auto) (1.4-6.5) K/uL Lymph # (Auto) (1.2-3.4) K/uL [place] # (Auto) (0.11-0.59) K/uL Eos # (Auto) (0-0.5) K/uL Baso # (Auto) (0-0.2) K/uL Absolute Nucleated RBC (0-0) K/uL Nucleated RBC % (auto) % PT (9.0-12.0) Seconds INR (0.9-1.1) APTT (21.0-31.0) Seconds PTT Ratio Sodium (136-145) mmol/L Potassium (3.5-5.1) mmol/L Chloride (98-107) mmol/L Carbon Dioxide (21-32) mmol/L Anion Gap (3-11) BUN (7-18) mg/dl Creatinine (0.6-1.4) mg/dl Est Cr Clr Drug Dosing Est GFR ( Amer) Est GFR (Non-Af Amer) BUN/Creatinine Ratio (10-20) Glucose (70-99) mg/dl POC Glucose 86 91 (70-99) Calcium (8.5-10.1) mg/dl Total Bilirubin (0.2-1) mg/dl AST (15-37) U/L ALT (12-78) U/L Alkaline Phosphatase (45-117) U/L Total Protein (6.4-8.2) gm/dl Albumin (3.4-5.0) gm/dl Globulin (2.5-4.0) gm/dl Albumin/Globulin Ratio (0.9-2) Lipase Carcinoembryonic Ag (0-2.5) ng/ml Stool Occult Bld Scrn (Negative) 09/08/18 09/08/18 09/08/18 Range/Units 06:07 06:50 06:51 WBC 8.37 (4.8-10.8) K/uL RBC 3.68 L (4.7-6.1) M/uL Hgb 8.9 L (14.0-18.0) g/dL Hct 30.3 L (42-52) % MCV 82.3 (80-100) fL MCH 24.2 L (25-34) pg MCHC 29.4 L (32-36) g/dL RDW Std Deviation 45.6 (36.4-46.3) fL RDW Coeff of Amandeep 15.2 H (11.5-14.5) % Plt Count 248 (130-400) K/uL MPV 10.2 (7.4-10.4) fL Immature Gran % (Auto) % Neut % (Auto) % Lymph % (Auto) % [place] % (Auto) % Eos % (Auto) % Baso % (Auto) % Immature Gran # (Auto) (0.00-0.02) K/uL Neut # (Auto) (1.4-6.5) K/uL Lymph # (Auto) (1.2-3.4) K/uL [place] # (Auto) (0.11-0.59) K/uL Eos # (Auto) (0-0.5) K/uL Baso # (Auto) (0-0.2) K/uL Absolute Nucleated RBC (0-0) K/uL Nucleated RBC % (auto) % PT (9.0-12.0) Seconds INR (0.9-1.1) APTT (21.0-31.0) Seconds PTT Ratio Sodium (136-145) mmol/L Potassium (3.5-5.1) mmol/L Chloride (98-107) mmol/L Carbon Dioxide (21-32) mmol/L Anion Gap (3-11) BUN (7-18) mg/dl Creatinine (0.6-1.4) mg/dl Est Cr Clr Drug Dosing Est GFR ( Amer) Est GFR (Non-Af Amer) BUN/Creatinine Ratio (10-20) Glucose (70-99) mg/dl POC Glucose 96 (70-99) Calcium (8.5-10.1) mg/dl Total Bilirubin (0.2-1) mg/dl AST (15-37) U/L ALT (12-78) U/L Alkaline Phosphatase (45-117) U/L Total Protein (6.4-8.2) gm/dl Albumin (3.4-5.0) gm/dl Globulin (2.5-4.0) gm/dl Albumin/Globulin Ratio (0.9-2) Lipase Carcinoembryonic Ag (0-2.5) ng/ml Stool Occult Bld Scrn Positive H (Negative) 09/08/18 09/08/18 09/08/18 Range/Units 06:51 06:51 07:31 WBC (4.8-10.8) K/uL RBC (4.7-6.1) M/uL Hgb (14.0-18.0) g/dL Hct (42-52) % MCV (80-100) fL MCH (25-34) pg MCHC (32-36) g/dL RDW Std Deviation (36.4-46.3) fL RDW Coeff of Amandeep (11.5-14.5) % Plt Count (130-400) K/uL MPV (7.4-10.4) fL Immature Gran % (Auto) % Neut % (Auto) % Lymph % (Auto) % [place] % (Auto) % Eos % (Auto) % Baso % (Auto) % Immature Gran # (Auto) (0.00-0.02) K/uL Neut # (Auto) (1.4-6.5) K/uL Lymph # (Auto) (1.2-3.4) K/uL [place] # (Auto) (0.11-0.59) K/uL Eos # (Auto) (0-0.5) K/uL Baso # (Auto) (0-0.2) K/uL Absolute Nucleated RBC (0-0) K/uL Nucleated RBC % (auto) % PT 11.8 (9.0-12.0) Seconds INR 1.2 H (0.9-1.1) APTT (21.0-31.0) Seconds PTT Ratio Sodium 142 (136-145) mmol/L Potassium 4.4 (3.5-5.1) mmol/L Chloride 107 (98-107) mmol/L Carbon Dioxide 28 (21-32) mmol/L Anion Gap 7.0 (3-11) BUN 20 H (7-18) mg/dl Creatinine 1.03 (0.6-1.4) mg/dl Est Cr Clr Drug Dosing 94.7 Est GFR ( Amer) 85.5 Est GFR (Non-Af Amer) 73.8 BUN/Creatinine Ratio 19.7 (10-20) Glucose 107 H (70-99) mg/dl POC Glucose 107 H (70-99) Calcium 8.4 L (8.5-10.1) mg/dl Total Bilirubin 0.6 (0.2-1) mg/dl AST 15 (15-37) U/L ALT 15 (12-78) U/L Alkaline Phosphatase 66 (45-117) U/L Total Protein 5.7 L (6.4-8.2) gm/dl Albumin 2.3 L (3.4-5.0) gm/dl Globulin 3.4 (2.5-4.0) gm/dl Albumin/Globulin Ratio 0.7 L (0.9-2) Lipase Carcinoembryonic Ag (0-2.5) ng/ml Stool Occult Bld Scrn (Negative) 09/08/18 09/08/18 09/08/18 Range/Units 13:00 16:00 16:20 WBC (4.8-10.8) K/uL RBC (4.7-6.1) M/uL Hgb 8.8 L (14.0-18.0) g/dL Hct 29.5 L (42-52) % MCV (80-100) fL MCH (25-34) pg MCHC (32-36) g/dL RDW Std Deviation (36.4-46.3) fL RDW Coeff of Amandeep (11.5-14.5) % Plt Count (130-400) K/uL MPV (7.4-10.4) fL Immature Gran % (Auto) % Neut % (Auto) % Lymph % (Auto) % [place] % (Auto) % Eos % (Auto) % Baso % (Auto) % Immature Gran # (Auto) (0.00-0.02) K/uL Neut # (Auto) (1.4-6.5) K/uL Lymph # (Auto) (1.2-3.4) K/uL [place] # (Auto) (0.11-0.59) K/uL Eos # (Auto) (0-0.5) K/uL Baso # (Auto) (0-0.2) K/uL Absolute Nucleated RBC (0-0) K/uL Nucleated RBC % (auto) % PT (9.0-12.0) Seconds INR (0.9-1.1) APTT (21.0-31.0) Seconds PTT Ratio Sodium (136-145) mmol/L Potassium (3.5-5.1) mmol/L Chloride (98-107) mmol/L Carbon Dioxide (21-32) mmol/L Anion Gap (3-11) BUN (7-18) mg/dl Creatinine (0.6-1.4) mg/dl Est Cr Clr Drug Dosing Est GFR ( Amer) Est GFR (Non-Af Amer) BUN/Creatinine Ratio (10-20) Glucose (70-99) mg/dl POC Glucose 113 H (70-99) Calcium (8.5-10.1) mg/dl Total Bilirubin (0.2-1) mg/dl AST (15-37) U/L ALT (12-78) U/L Alkaline Phosphatase (45-117) U/L Total Protein (6.4-8.2) gm/dl Albumin (3.4-5.0) gm/dl Globulin (2.5-4.0) gm/dl Albumin/Globulin Ratio (0.9-2) Lipase Carcinoembryonic Ag 1.8 (0-2.5) ng/ml Stool Occult Bld Scrn (Negative) 09/08/18 Range/Units 20:21 WBC (4.8-10.8) K/uL RBC (4.7-6.1) M/uL Hgb (14.0-18.0) g/dL Hct (42-52) % MCV (80-100) fL MCH (25-34) pg MCHC (32-36) g/dL RDW Std Deviation (36.4-46.3) fL RDW Coeff of Amandeep (11.5-14.5) % Plt Count (130-400) K/uL MPV (7.4-10.4) fL Immature Gran % (Auto) % Neut % (Auto) % Lymph % (Auto) % [place] % (Auto) % Eos % (Auto) % Baso % (Auto) % Immature Gran # (Auto) (0.00-0.02) K/uL Neut # (Auto) (1.4-6.5) K/uL Lymph # (Auto) (1.2-3.4) K/uL [place] # (Auto) (0.11-0.59) K/uL Eos # (Auto) (0-0.5) K/uL Baso # (Auto) (0-0.2) K/uL Absolute Nucleated RBC (0-0) K/uL Nucleated RBC % (auto) % PT (9.0-12.0) Seconds INR (0.9-1.1) APTT (21.0-31.0) Seconds PTT Ratio Sodium (136-145) mmol/L Potassium (3.5-5.1) mmol/L Chloride (98-107) mmol/L Carbon Dioxide (21-32) mmol/L Anion Gap (3-11) BUN (7-18) mg/dl Creatinine (0.6-1.4) mg/dl Est Cr Clr Drug Dosing Est GFR ( Amer) Est GFR (Non-Af Amer) BUN/Creatinine Ratio (10-20) Glucose (70-99) mg/dl POC Glucose 103 H (70-99) Calcium (8.5-10.1) mg/dl Total Bilirubin (0.2-1) mg/dl AST (15-37) U/L ALT (12-78) U/L Alkaline Phosphatase (45-117) U/L Total Protein (6.4-8.2) gm/dl Albumin (3.4-5.0) gm/dl Globulin (2.5-4.0) gm/dl Albumin/Globulin Ratio (0.9-2) Lipase Carcinoembryonic Ag (0-2.5) ng/ml Stool Occult Bld Scrn (Negative) Imaging Data Radiologist's Impression: Radiology results as stated below per my review and the radiologist's interpretation: SINGLE VIEW CHEST CLINICAL HISTORY: GI bleeding. FINDINGS: An AP, portable, upright chest radiograph is compared to study dated 08/11/2018. The examination is degraded by portable technique and patient rotation. The patient is status post midline sternotomy. The heart is enlarged and there is atherosclerotic calcification of the thoracic aorta. There is pulmonary vascular congestion and interstitial edema. There are small pleural effusions with bibasilar consolidation. No pneumothorax is seen. The skeletal structures are osteopenic. The bony thorax is grossly intact. Degenerative changes noted in the shoulders and thoracic spine. IMPRESSION: 1. Cardiomegaly with evidence of congestive failure and interstitial edema. 2. There are small pleural effusions with bibasilar consolidation. This could represent atelectasis and/or pneumonia and clinical correlation will be required. Electronically signed by: Denzel Quarles M.D. 09/07/2018 3:16 PM ECG Data Attestation: I personally reviewed and interpreted this ECG as follows: Indication: other (GI bleeding) Rate (beats per minute): 66 Rhythm: atrial fibrillation Findings: + other (right axis deviation; non-specific AV block; non-specific T- wave abnormalities; QTc is 469) Blood Pressure Blood Pressure Findings: Normal blood pressure Blood Pressure Disposition: did not require urgent referral MDM Narrative This patient was evaluated and appeared to be in no significant distress. IV access was obtained and laboratory work was drawn. Patient was placed on the radiation monitor. Patient was hydrated with normal saline solution, given IV Protonix. Stool guaiac is faintly positive, rectal tissue is thickened and coarse on exam patient's hemoglobin has dropped 4 points. Hemoglobin is currently 9.3. Chest x-ray was performed and reveals some vascular congestion. Patient has declined a colonoscopy in the past however is scheduled for GI follow-up in September. Patient's vital signs have remained stable. He will be evaluated by the hospitalist service for further management. Patient is aware of the plan and agrees. Impression & Plan GI bleed, Anemia, Chronic anticoagulation Discharge Plan Visit Data *Final* Discharge Date/Time: 09/07/18 18:03 Chief Complaint: Diarrhea Stated Complaint: DIARRHEA, BLOODY STOOLS ED Provider: Jocelyn Bridges Discharge Problem: GI bleed, Anemia, Chronic anticoagulation Patient Disposition: Admitted As Inpatient Discharge Instructions Interventions: ED Discharge Assessment Last Done: 09/07/18 18:03 Discharge Problem: GI bleed Qualifiers: GI bleed type/associated pathology: unspecified gastrointestinal hemorrhage type Qualified Code(s): K92.2 - Gastrointestinal hemorrhage, unspecified Anemia Qualifiers: Anemia type: unspecified type Qualified Code(s): D64.9 - Anemia, unspecified The scribe's documentation has been prepared under my direction and personally reviewed by me in its entirety. I confirm that the note above accurately reflects all work, treatment, procedures, and medical decision making performed by me.
[2018-09-07] MEDS: INSULIN ASPART 100 UNITS/ML 3 ML PEN SC SCH (23:50)
[2018-09-08] MEDS ORDERED: INSULIN ASPART 100 UNITS/ML 3 ML PEN SC SCH
[2018-09-08] MEDS: SODIUM CHLORIDE 0.9% 1000ML 1,000 ML IV SCH ×2 (05:17→15:10)
[2018-09-08] MEDS: INSULIN ASPART 100 UNITS/ML 3 ML PEN SC SCH ×3 (06:36→18:26)
[2018-09-08 07:29] LABS: Hematocrit (blood only) 30.3 % (42-52); Hemoglobin 8.9 g/dL (14.0-18.0); Mean Corpuscular Hgb Conc 29.4 g/dL (32-36); Mean Corpuscular Volume 82.3 fL (80-100); Mean Platelet Volume 10.2 fL (7.4-10.4); Platelet Count 248 K/uL (130-400); RDW Coefficient of Variation 15.2 % (11.5-14.5); RDW Standard Deviation 45.6 fL (36.4-46.3); Red Blood Count 3.68 M/uL (4.7-6.1); White Blood Count 8.37 K/uL (4.8-10.8)
[2018-09-08 07:39] LABS: INR 1.2 (0.9-1.1); Prothrombin Time 11.8 Seconds (9.0-12.0)
[2018-09-08 08:05] LABS: Albumin Level 2.3 gm/dl (3.4-5.0); BUN Creatinine Ratio 19.7 (10-20); Calcium 8.4 mg/dl (8.5-10.1); Creatinine Clr Calc Pharmacy 94.7 ml/min; Est GFR (African American) 85.5; Est GFR (Non-African American) 73.8; Potassium 4.4 mmol/L (3.5-5.1)
[2018-09-08 08:07] LABS: Albumin Globulin Ratio 0.7 (0.9-2); Bilirubin,Total 0.6 mg/dl (0.2-1); Globulin 3.4 gm/dl (2.5-4.0); Total Protein 5.7 gm/dl (6.4-8.2)
[2018-09-08] MEDS ORDERED: NON-FORMULARY MEDICATION (Omeprazole 20 MG) PO SCH (09:00)
--- NOTE | 2018-09-08 09:08 | Cardiology Consultation ---
Date of Consultation September 08, 2018 Assessment & Plan (1) Aortic stenosis: Patient underwent bioprosthetic valve replacement in 2010. Last echocardiogram demonstrated normal function of the valve. I do not have report from [facility], but is examination is benign and do not suspect is been any change in the valve function of clinical consequence. Present on Admission?: Yes (2) Nonischemic cardiomyopathy: Last echocardiogram obtained our facility was 2015. At that time he was noted to have preserved LV systolic function with an estimated ejection fraction 50-55 percent. At [facility] he underwent echocardiography by report. This suggested an ejection fraction of 45 percent. He has been maintained on a beta-penny for a long time. In the past he was on diuretic therapy as well. He has some symptoms of dyspnea with activity which could be a result of his cardiomyopathy. This could also be result of deconditioning. The symptoms he describes at nighttime not classic for true paroxysmal nocturnal dyspnea. However, he does have an element of peripheral edema and some crackles in the left base on exam. I think would be reasonable to stop any aggressive hydration and consider a dose of diuretic for persistent symptoms and edema. His overall fluid balance appears to be negative since admission in this can be monitored. More aggressive therapy with Anton inhibition is indicated. However, his blood pressure is relatively low. I think we can monitor his hemodynamic while he is an inpatient decide on Anton inhibition prior to discharge. Present on Admission?: Yes (3) Afib: Permanent. He has a long history of atrial fibrillation in the past refused anticoagulation. Subsequent to his cerebral vascular accident he was started on anticoagulation with both Eliquis and aspirin. From the standpoint of atrial fibrillation he does not require aspirin in addition to Eliquis. This likely increases his bleeding risk. Perhaps this was initiated secondary to his cerebral vascular accident and I would defer any recommendation regarding continued aspirin use to the neurology service. While he derived great benefit from Eliquis use long-term, if he has active bleeding and temporarily stopping the Eliquis is recommended. Once we were confident that he no longer has gastrointestinal hemorrhage this can be re- initiated. Given his high chads Vasc score bridging therapy would generally be considered, but once again, in the setting of active bleeding I do not think this should be initiated. Present on Admission?: Yes History of Present Illness Reason for Consultation: Atrial fibrillation Requesting Physician: Raman Attending Physician: Liberty Camargo DO History of Present Illness The patient is a 68-year-old gentleman with a history of aortic valve disease and bioprosthetic aortic valve replacement completed in 2010. He is also known to have permanent atrial fibrillation diagnosed as an outpatient well over a year ago. The patient was recently evaluated at [facility] for symptoms of seizure perhaps in the setting of an acute cerebral vascular accident. He was transferred emergently to [facility] where he was felt to have had a cerebral vascular accident. He was recently discharged from a rehabilitation facility. Yesterday the patient presented to [facility] with symptoms of rectal pain. He states that he has been having melenic stool and bright red blood per rectum. He also has pain at the rectum. Based on the symptoms he sought evaluation in the emergency room. He was noted to have atrial fibrillation with controlled ventricular rate. At [facility] he was started on anticoagulant therapy with Eliquis. He has been compliant with his medical therapy. This morning the patient claims to be feeling much better. His pain has resolved. He reports having had 2 bowel movements in the hospital which did not appear to contain blood and were not melenic. He has been ambulatory around his residence at home. He feels that his strength is improving but does endorse an element of dyspnea with activity. He also states that he has some breathing difficulty at nighttime. Occasionally he will have to sit up in bed to breathe better. He generally sleeps lying flat on his left side. He has noticed some swelling of lower extremities recently as well. He did not report dizziness or lightheadedness. He has not been aware of palpitations. He did not report any chest pain either at rest or with activity. Allergies Allergy/AdvReac Type Severity Reaction Status Date / Time No Known Allergies Allergy NONE Verified 09/14/18 12:05 Home Medications Home Medications Medication Instructions Recorded Confirmed Type Complete Multi 50+ 1 tab PO QAM 08/11/18 09/14/18 History aspirin [Aspirin Low Dose] 81 mg PO QAM 08/11/18 09/14/18 History carvedilol 6.25 mg PO BID 08/11/18 09/14/18 History folic acid 400 mcg PO QAM 08/11/18 09/14/18 History spironolactone 25 mg PO QAM 08/11/18 09/14/18 History Levemir U-100 Insulin 22 unit SUBCUT QPM 09/07/18 09/14/18 History acetaminophen [Tylenol] 650 mg PO Q4 PRN 09/07/18 09/14/18 History ascorbic acid (vitamin C) [Vitamin 500 mg PO QAM 09/07/18 09/14/18 History C] hydrocortisone [Proctosol HC] 1 applic DC BID 09/07/18 09/14/18 History insulin lispro [Humalog U-100 6 unit SUBCUT TIDM 09/07/18 09/14/18 History Insulin] levetiracetam [Keppra] 500 mg PO BID 09/07/18 09/14/18 History omega 5-ebp-jva-fish oil [Fish Oil] 1 cap PO QAM 09/07/18 09/14/18 History omeprazole 20 mg PO QAM 09/07/18 09/14/18 History simvastatin 20 mg PO HS 09/07/18 09/14/18 History tamsulosin [Flomax] 0.4 mg PO PM 09/07/18 09/14/18 History docusate sodium 100 mg PO BID 30 Days #60 cap 09/11/18 09/14/18 Rx ferrous sulfate 325 mg PO TIDM 30 Days #30 tab 09/11/18 09/14/18 Rx Patient History Medical History Aortic stenosis Nonischemic cardiomyopathy CVA (cerebral vascular accident) HLD (hyperlipidemia) HTN (hypertension) Urinary retention DM type 2 (diabetes mellitus, type 2) Seizure GI bleed (Acute) Anemia (Acute) Chronic anticoagulation (Acute) Afib HTN (hypertension) (Chronic) Heart disease (Chronic) Kidney disease (Chronic) Surgical History H/O aortic valve replacement H/O aortic valve replacement (Resolved) Family History Other Colon cancer Social History Communication Ability: Effective Beliefs That Will Affect Care: Religion Current Living Situation: Family Other Information That Helps Us Care for You: No Feels Safe at Home: Yes Safety Concerns: Feels Safe At This Time Smoking Status: Never smoker Hx Alcohol Use: Yes Hx Substance Use: No Review of Systems Complete. Pertinent positives noted in history of present illness. He did not report any constitutional symptoms recently such as fevers or chills. He claims to be eating well. He reports eating less. He does not have difficulty with swallowing. He has rare and fleeting abdominal pain. He has not had vomiting. Physical Exam Vital Signs (Past 24 Hours): Last Vital Signs Temp 36.5 C 09/08/18 07:09 Pulse 64 09/08/18 07:09 Resp 18 09/08/18 07:09 BP 105/68 09/08/18 07:09 Pulse Ox 93 09/08/18 07:09 Physical Exam: The patient is alert and oriented. Mood and affect appeared normal. He answered all questions appropriately. Obese HEENT: Pupils are equal and reactive to light and accommodation. Extraocular movements are intact. The sclerae are anicteric. Neuro: Cranial nerves intact Neck: Patient's neck is supple. He has palpable carotid pulses bilaterally without bruits on auscultation. There is no evidence of jugular venous distention. The thyroid is not enlarged. Lungs: Clear to auscultation bilaterally. He has good air movement without use of accessory muscles. Some crackles at the left base. No expiratory wheezing. Cardiac: Heart demonstrates an irregular rate and rhythm. Normal S1 and S2. Soft crescendo systolic murmur. Pulses: The patient has palpable radial pulses bilaterally that are equal in intensity Extremities: There was no evidence of hypoperfusion. There is no cyanosis or clubbing. Moderate edema in both lower extremities. Skin: I did not appreciate any rashes on examination today. Results & Data Laboratory Results Abnormal Lab Results 09/07/18 09/07/18 09/07/18 13:50 13:50 13:50 WBC 7.72 RBC 3.77 L Hgb 9.3 L Hct 31.1 L MCV 82.5 MCH 24.7 L MCHC 29.9 L RDW Std Deviation 45.6 RDW Coeff of Amandeep 15.1 H Plt Count 288 MPV 9.8 Immature Gran % (Auto) 0.1 Neut % (Auto) 58.5 Lymph % (Auto) 25.4 [place] % (Auto) 10.2 Eos % (Auto) 5.4 Baso % (Auto) 0.4 Immature Gran # (Auto) 0.01 Neut # (Auto) 4.51 Lymph # (Auto) 1.96 [place] # (Auto) 0.79 H Eos # (Auto) 0.42 Baso # (Auto) 0.03 Absolute Nucleated RBC 0.04 H Nucleated RBC % (auto) 0.5 PT 11.5 INR 1.1 APTT 25.8 PTT Ratio 1.0 Sodium Potassium Chloride Carbon Dioxide Anion Gap BUN Creatinine Est Cr Clr Drug Dosing Est GFR ( Amer) Est GFR (Non-Af Amer) BUN/Creatinine Ratio Glucose POC Glucose Calcium Total Bilirubin AST ALT Alkaline Phosphatase Total Protein Albumin Globulin Albumin/Globulin Ratio Lipase Cancelled Stool Occult Bld Scrn 09/07/18 09/07/18 09/07/18 13:50 17:11 18:39 WBC RBC Hgb 9.4 L Hct MCV MCH MCHC RDW Std Deviation RDW Coeff of Amandeep Plt Count MPV Immature Gran % (Auto) Neut % (Auto) Lymph % (Auto) [place] % (Auto) Eos % (Auto) Baso % (Auto) Immature Gran # (Auto) Neut # (Auto) Lymph # (Auto) [place] # (Auto) Eos # (Auto) Baso # (Auto) Absolute Nucleated RBC Nucleated RBC % (auto) PT INR APTT PTT Ratio Sodium 140 Potassium 4.4 Chloride 107 Carbon Dioxide 29 Anion Gap 4.0 BUN 22 H Creatinine 1.06 Est Cr Clr Drug Dosing Not Reportable Est GFR ( Amer) 82.6 Est GFR (Non-Af Amer) 71.3 BUN/Creatinine Ratio 21.1 H Glucose 68 L POC Glucose 117 H Calcium 8.1 L Total Bilirubin 0.3 AST 13 L ALT 14 Alkaline Phosphatase 73 Total Protein 6.2 L Albumin 2.3 L Globulin 3.9 Albumin/Globulin Ratio 0.6 L Lipase 97 Stool Occult Bld Scrn 09/07/18 09/07/18 09/08/18 19:29 23:49 00:24 WBC RBC Hgb 9.2 L Hct MCV MCH MCHC RDW Std Deviation RDW Coeff of Amandeep Plt Count MPV Immature Gran % (Auto) Neut % (Auto) Lymph % (Auto) [place] % (Auto) Eos % (Auto) Baso % (Auto) Immature Gran # (Auto) Neut # (Auto) Lymph # (Auto) [place] # (Auto) Eos # (Auto) Baso # (Auto) Absolute Nucleated RBC Nucleated RBC % (auto) PT INR APTT PTT Ratio Sodium Potassium Chloride Carbon Dioxide Anion Gap BUN Creatinine Est Cr Clr Drug Dosing Est GFR ( Amer) Est GFR (Non-Af Amer) BUN/Creatinine Ratio Glucose POC Glucose 86 91 Calcium Total Bilirubin AST ALT Alkaline Phosphatase Total Protein Albumin Globulin Albumin/Globulin Ratio Lipase Stool Occult Bld Scrn 09/08/18 09/08/18 09/08/18 06:07 06:50 06:51 WBC 8.37 RBC 3.68 L Hgb 8.9 L Hct 30.3 L MCV 82.3 MCH 24.2 L MCHC 29.4 L RDW Std Deviation 45.6 RDW Coeff of Amandeep 15.2 H Plt Count 248 MPV 10.2 Immature Gran % (Auto) Neut % (Auto) Lymph % (Auto) [place] % (Auto) Eos % (Auto) Baso % (Auto) Immature Gran # (Auto) Neut # (Auto) Lymph # (Auto) [place] # (Auto) Eos # (Auto) Baso # (Auto) Absolute Nucleated RBC Nucleated RBC % (auto) PT INR APTT PTT Ratio Sodium Potassium Chloride Carbon Dioxide Anion Gap BUN Creatinine Est Cr Clr Drug Dosing Est GFR ( Amer) Est GFR (Non-Af Amer) BUN/Creatinine Ratio Glucose POC Glucose 96 Calcium Total Bilirubin AST ALT Alkaline Phosphatase Total Protein Albumin Globulin Albumin/Globulin Ratio Lipase Stool Occult Bld Scrn Positive H 09/08/18 09/08/18 09/08/18 06:51 06:51 07:31 WBC RBC Hgb Hct MCV MCH MCHC RDW Std Deviation RDW Coeff of Amandeep Plt Count MPV Immature Gran % (Auto) Neut % (Auto) Lymph % (Auto) [place] % (Auto) Eos % (Auto) Baso % (Auto) Immature Gran # (Auto) Neut # (Auto) Lymph # (Auto) [place] # (Auto) Eos # (Auto) Baso # (Auto) Absolute Nucleated RBC Nucleated RBC % (auto) PT 11.8 INR 1.2 H APTT PTT Ratio Sodium 142 Potassium 4.4 Chloride 107 Carbon Dioxide 28 Anion Gap 7.0 BUN 20 H Creatinine 1.03 Est Cr Clr Drug Dosing 94.7 Est GFR ( Amer) 85.5 Est GFR (Non-Af Amer) 73.8 BUN/Creatinine Ratio 19.7 Glucose 107 H POC Glucose 107 H Calcium 8.4 L Total Bilirubin 0.6 AST 15 ALT 15 Alkaline Phosphatase 66 Total Protein 5.7 L Albumin 2.3 L Globulin 3.4 Albumin/Globulin Ratio 0.7 L Lipase Stool Occult Bld Scrn Diagnostic Findings Chest x-ray obtained at the time of admission not reveal any acute cardiopulmonary findings. ECG Additional Comments: EKG obtained his admission revealed atrial fibrillation with controlled ventricular rate. Nonspecific interventricular conduction delay.
[2018-09-08] MEDS: SPIRONOLACTONE 25 MG TAB PO SCH (09:14)
[2018-09-08] MEDS: PANTOprazole 40 MG in SYRINGE 0 ML IV SCH ×2 (09:14→20:15)
[2018-09-08] MEDS: levETIRAcetam 500 MG TAB PO SCH ×2 (09:14→20:16)
[2018-09-08] MEDS: CARVEDILOL 6.25 MG TAB PO SCH ×2 (09:14→20:17)
[2018-09-08 13:16] LABS: Hematocrit (blood only) 29.5 % (42-52); Hemoglobin 8.8 g/dL (14.0-18.0)
--- NOTE | 2018-09-08 16:00 | Consultation Report ---
DATE OF CONSULTATION: 09/08/2018 GI CONSULT NOTE REASON FOR CONSULTATION: Rectal bleeding. HISTORY OF PRESENT ILLNESS: The patient is a 68-year-old male who presented to the hospital with rectal bleeding. The patient reports that he is having intermittent bright red rectal bleeding with bowel movements over the last 6 months. The patient was recently diagnosed with a new-onset AFib and was started on Eliquis 5 mg twice a day in addition to his baby aspirin. He is also on omeprazole for cytoprotection. The patient is on blood thinners, not just for AFib, but he also has had an aortic valve replacement and had a stroke in the past. Of note is the patient's mother of colon cancer after being diagnosed at age 56. The patient has never had a colonoscopy and has declined him in the past. He is willing to proceed at this time. The patient does report that he has been having a little bit of constipation over the last 2 days, but other than that, has had no weight loss or other symptoms. His hemoglobin on admission was 9, which is down from 13 about a month ago. PAST MEDICAL HISTORY: Remarkable for aortic valve replacement, AFib, CVA, hypertension, diabetes, heart disease, chronic kidney disease. MEDICATIONS: Per list. ALLERGIES: None. FAMILY HISTORY: Positive for colon cancer in his mother. SOCIAL HISTORY: The patient is a Je[employer] Witness that is not yet baptized, but has refused to receive any blood products. He does not smoke, does not use alcohol. REVIEW OF SYSTEMS: Essentially negative other than those mentioned. PHYSICAL EXAMINATION: GENERAL: The patient is overweight, in no acute distress. VITAL SIGNS: Blood pressure is 136/81, pulse 55. He is afebrile. ABDOMEN: Obese and protuberant. There are no masses appreciated. No internal organs are palpable. RECTAL: Exam shows a circumferential rectal mass just inside the anal orifice consistent with a rectal tumor. IMPRESSION AND PLAN: The patient is having rectal bleeding while on blood thinners for atrial fibrillation, aortic valve replacement and a stroke in the past. These are being held. His physical exam is remarkable for rectal tumor and a family history of colon cancer. He is agreeable to proceeding with a colonoscopy tomorrow which we will schedule for further evaluation. In the meantime, we will get a CEA, and after his colonoscopy, he will probably need a CAT scan of his chest, abdomen and pelvis for staging.
[2018-09-08] MEDS: LAVAGE SOLUTION 4000ML PO SCH (20:10)
[2018-09-08] MEDS: SIMVASTATIN 20 MG TAB PO SCH (20:16)
[2018-09-08] MEDS: TAMSULOSIN HCL 0.4 MG CAP PO SCH (20:16)
[2018-09-08] MEDS: INSULIN DETEMIR FLEXPEN/FLEX TOUCH 100 UNITS/ML 3ML SQ SCH (20:21)
--- NOTE | 2018-09-08 21:39 | Hospitalist Progress Note ---
Date of Service September 08, 2018 Assessment & Plan (1) GI bleed: H/H appear to have plateaued. Repeat H/H again in AM. GI has seen - colonoscopy recommended - plan for this tomorrow. (2) Anemia: acute/chronic. acute component due to acute blood loss anemia. follow serial H/H's. no blood products due to [employer] ishan. (3) Chronic anticoagulation: eliquis on hold due to GI bleeding. (4) Seizure: Keppra 500 mg bid (5) DM type 2 (diabetes mellitus, type 2): cont basal-bolus insulin regimen. (6) Afib: rates controlled eliquis on hold (7) Aortic stenosis: no issues (8) H/O aortic valve replacement: noted (9) Nonischemic cardiomyopathy: chronic systolic CHF - EF 45% mild LE edema reduce IV fluid rate once allowed to eat and fluid is off start diuretic (10) HTN (hypertension): cont outpatient meds (11) HLD (hyperlipidemia): Continue statin therapy (12) CVA (cerebral vascular accident): left MCA territory stroke on 08/11 which then converted to left posterior parietal lobe with petechial hemoconversion. hospitalized at [place] for such Patient has residual slurred speech - mild. unfortunately, in light of GI bleed - HOLD Eliquis and aspirin (13) Urinary retention: alpha penny (14) DVT prophylaxis: Teds, scds, no chemical prophylaxis with GI bleed family updated at bedside Subjective had a stool just prior to my visit minimal gross blood confirms mild hematochezia for several months confirms he is joining the [employer] ishan and declines PRBCs if his situation called for it family at bedside tele stable overnight Constitutional: no fever Respiratory: no dyspnea Cardiovascular: + orthopnea and + edema Gastrointestinal: no abdominal pain, no nausea and no vomiting Physical Exam Vital Signs (Past 24 Hours): Last Vital Signs Temp 36.7 C 09/08/18 15:25 Pulse 66 09/08/18 16:00 Resp 18 09/08/18 15:25 BP 99/58 L 09/08/18 15:25 Pulse Ox 98 09/08/18 15:25 Constitutional: well developed, well nourished and + morbidly obese; no acute distress and not ill appearing ENMT: external ear and nose normal, oropharynx normal Respiratory: normal respiratory effort, lungs clear to auscultation Auscultation: + diminished lung sounds (bases) Cardiovascular: Rate/Rhythm: + abnormal rhythm (irregular) Heart Sounds: normal S1, normal S2 and + murmur (2/6 RUSB) Vessels: posterior tibial pulses present and dorsalis pedis pulses present Extremities: + edema (2+ b/l) Gastrointestinal (Abdomen): normal bowel sounds, soft, nontender, no hepatosplenomegaly Psychiatric: A+Ox3, euthymic affect Results & Data Laboratory Results Laboratory Results - last 24 hr 09/07/18 09/08/18 09/08/18 23:49 00:24 06:07 WBC RBC Hgb 9.2 L Hct MCV MCH MCHC RDW Std Deviation RDW Coeff of Amandeep Plt Count MPV PT INR Sodium Potassium Chloride Carbon Dioxide Anion Gap BUN Creatinine Est Cr Clr Drug Dosing Est GFR ( Amer) Est GFR (Non-Af Amer) BUN/Creatinine Ratio Glucose POC Glucose 91 96 Calcium Total Bilirubin AST ALT Alkaline Phosphatase Total Protein Albumin Globulin Albumin/Globulin Ratio Carcinoembryonic Ag Stool Occult Bld Scrn 09/08/18 09/08/18 09/08/18 06:50 06:51 06:51 WBC 8.37 RBC 3.68 L Hgb 8.9 L Hct 30.3 L MCV 82.3 MCH 24.2 L MCHC 29.4 L RDW Std Deviation 45.6 RDW Coeff of Amandeep 15.2 H Plt Count 248 MPV 10.2 PT 11.8 INR 1.2 H Sodium Potassium Chloride Carbon Dioxide Anion Gap BUN Creatinine Est Cr Clr Drug Dosing Est GFR ( Amer) Est GFR (Non-Af Amer) BUN/Creatinine Ratio Glucose POC Glucose Calcium Total Bilirubin AST ALT Alkaline Phosphatase Total Protein Albumin Globulin Albumin/Globulin Ratio Carcinoembryonic Ag Stool Occult Bld Scrn Positive H 09/08/18 09/08/18 09/08/18 06:51 07:31 13:00 WBC RBC Hgb 8.8 L Hct 29.5 L MCV MCH MCHC RDW Std Deviation RDW Coeff of Amandeep Plt Count MPV PT INR Sodium 142 Potassium 4.4 Chloride 107 Carbon Dioxide 28 Anion Gap 7.0 BUN 20 H Creatinine 1.03 Est Cr Clr Drug Dosing 94.7 Est GFR ( Amer) 85.5 Est GFR (Non-Af Amer) 73.8 BUN/Creatinine Ratio 19.7 Glucose 107 H POC Glucose 107 H Calcium 8.4 L Total Bilirubin 0.6 AST 15 ALT 15 Alkaline Phosphatase 66 Total Protein 5.7 L Albumin 2.3 L Globulin 3.4 Albumin/Globulin Ratio 0.7 L Carcinoembryonic Ag Stool Occult Bld Scrn 09/08/18 09/08/18 09/08/18 16:00 16:20 20:21 WBC RBC Hgb Hct MCV MCH MCHC RDW Std Deviation RDW Coeff of Amandeep Plt Count MPV PT INR Sodium Potassium Chloride Carbon Dioxide Anion Gap BUN Creatinine Est Cr Clr Drug Dosing Est GFR ( Amer) Est GFR (Non-Af Amer) BUN/Creatinine Ratio Glucose POC Glucose 113 H 103 H Calcium Total Bilirubin AST ALT Alkaline Phosphatase Total Protein Albumin Globulin Albumin/Globulin Ratio Carcinoembryonic Ag 1.8 Stool Occult Bld Scrn (1) GI bleed GI bleed type/associated pathology: unspecified gastrointestinal hemorrhage type Qualified Code(s): K92.2 - Gastrointestinal hemorrhage, unspecified (2) Anemia Anemia type: unspecified type Qualified Code(s): D64.9 - Anemia, unspecified (3) DM type 2 (diabetes mellitus, type 2) Diabetes mellitus long chain beamer insulin use: with retirement use Diabetes mellitus complication status: without complication Qualified Code(s): E11.9 - Type 2 diabetes mellitus without complications; Z79.4 - ferry terminal agent (current) use of insulin (4) Afib Atrial fibrillation type: chronic Qualified Code(s): I48.2 - Chronic atrial fibrillation (5) Aortic stenosis Cardiac valve disease etiology: etiology unspecified Qualified Code(s): I35.0 - Nonrheumatic aortic (valve) stenosis (6) HTN (hypertension) Hypertension type: essential hypertension Qualified Code(s): I10 - Essential (primary) hypertension (7) HLD (hyperlipidemia) Hyperlipidemia type: mixed hyperlipidemia Qualified Code(s): E78.2 - Mixed hyperlipidemia (8) CVA (cerebral vascular accident) CVA mechanism: embolism Precerebral and cerebral artery: middle cerebral artery Laterality of affected vessel: left Qualified Code(s): I63.412 - Cerebral infarction due to embolism of left middle cerebral artery
[2018-09-09] MEDS: INSULIN ASPART 100 UNITS/ML 3 ML PEN SC SCH ×4 (00:06→17:45)
[2018-09-09] MEDS: LAVAGE SOLUTION 4000ML PO SCH (06:20)
[2018-09-09 07:46] LABS: Hemoglobin 9.3 g/dL (14.0-18.0); Mean Corpuscular Volume 81.8 fL (80-100); Platelet Count 297 K/uL (130-400); RDW Coefficient of Variation 15.2 % (11.5-14.5); RDW Standard Deviation 45.3 fL (36.4-46.3); Red Blood Count 3.79 M/uL (4.7-6.1); White Blood Count 8.23 K/uL (4.8-10.8)
[2018-09-09 07:56] LABS: INR 1.2 (0.9-1.1); Prothrombin Time 11.7 Seconds (9.0-12.0)
[2018-09-09 08:16] LABS: Albumin Level 2.4 gm/dl (3.4-5.0); BUN Creatinine Ratio 19.1 (10-20); Calcium 8.6 mg/dl (8.5-10.1); Creatinine Clr Calc Pharmacy 93.5 ml/min; Est GFR (African American) 84.5; Est GFR (Non-African American) 72.9; Potassium 4.6 mmol/L (3.5-5.1)
[2018-09-09 08:19] LABS: Albumin Globulin Ratio 0.7 (0.9-2); Bilirubin,Total 0.4 mg/dl (0.2-1); Globulin 3.7 gm/dl (2.5-4.0); Total Protein 6.1 gm/dl (6.4-8.2)
--- NOTE | 2018-09-09 08:54 | Anesthesiology Consultation ---
Date of Service September 09, 2018 Assessment & Plan (1) Encounter for pre-operative examination: Chart Review Chart Review: Acceptable Risk for Surgery, Patient NOT seen in Pre Admission Testing and data entry coordinator initiated Consults Requested none History Surgery Operation Date: 09/09/18 09:00 Proposed Procedures p Colonoscopy Dr Ross Hawkins Height/Weight Height: 5 ft 10 in Weight: 137 kg Allergies Allergy/AdvReac Type Severity Reaction Status Date / Time No Known Allergies Allergy NONE Verified 08/11/18 11:48 Medications Home Medications Medication Instructions Recorded Confirmed Last Taken amoxicillin 4 cap PO DIRECTED 08/11/18 09/07/18 Unknown aspirin [Aspirin Low Dose] 81 mg PO DAILY 08/11/18 09/07/18 09/07/18 10:00 carvedilol 6.25 mg PO BID 08/11/18 09/07/18 09/07/18 10:00 folic acid 400 mcg PO DAILY 08/11/18 09/07/18 09/07/18 10:00 zjhfkhgl-hdj-QE-lycopen-lutein 1 tab PO DAILY 08/11/18 09/07/18 Unknown [Complete Multi 50+] spironolactone 25 mg PO DAILY 08/11/18 09/07/18 09/07/18 10:00 acetaminophen [Tylenol] 650 mg PO Q4 PRN 09/07/18 09/07/18 Unknown apixaban [Eliquis] 5 mg PO BID 09/07/18 09/07/18 09/07/18 10:00 ascorbic acid (vitamin C) [Vitamin 500 mg PO DAILY 09/07/18 09/07/18 09/07/18 09:00 C] hydrocortisone [Proctosol HC] 1 applic NE BID 09/07/18 09/07/18 Unknown insulin detemir U-100 [Levemir 22 unit SUBCUT QPM 09/07/18 09/07/18 09/06/18 U-100 Insulin] insulin lispro [Humalog U-100 6 unit SUBCUT TIDM 09/07/18 09/07/18 Unknown Insulin] levetiracetam [Keppra] 500 mg PO BID 09/07/18 09/07/18 09/07/18 10:00 omega 9-ojk-vxx-fish oil [Fish Oil] 1 cap PO DAILY 09/07/18 09/07/18 Unknown omeprazole 20 mg PO DAILY 09/07/18 09/07/18 09/07/18 simvastatin 20 mg PO PM 09/07/18 09/07/18 Unknown tamsulosin [Flomax] 0.4 mg PO QPM 09/07/18 09/07/18 Unknown Active Medications Generic Name Dose Route Start Last Admin Trade Name Freq PRN Reason Stop Dose Admin Carvedilol 6.25 mg 09/07/18 21:00 09/08/18 20:17 Coreg PO 10/07/18 20:59 6.25 mg BID JENNIFFER Administration Dextrose 25 - 50 ml 09/07/18 16:21 09/07/18 16:33 Dextrose 50% IV 10/07/18 16:20 50 ml UD PRN Administration Hypoglycemia Protocol Protocol Pantoprazole Sodium 40 mg/ 10 mls @ 5 mls/min 09/07/18 21:00 09/08/18 20:15 Syringe IV 10/07/18 20:59 5 mls/min BID JENNIFFER Administration Insulin Aspart 0 units 09/08/18 00:00 09/09/18 06:20 Novolog Flexpen SC 10/08/18 00:00 Not Given Q6 JENNIFFER Insulin Detemir 11 units 09/07/18 21:00 09/08/18 20:21 Levemir Flextouch SQ 10/07/18 20:59 11 units QPM JENNIFFER Administration Levetiracetam 500 mg 09/07/18 21:00 09/08/18 20:16 Keppra PO 10/07/18 20:59 500 mg BID JENNIFFER Administration Simvastatin 20 mg 09/07/18 21:00 09/08/18 20:16 Zocor PO 10/07/18 20:59 20 mg PM JENNIFFER Administration Spironolactone 25 mg 09/08/18 09:00 09/08/18 09:14 Aldactone PO 10/08/18 08:59 25 mg DAILY JENNIFFER Administration Tamsulosin HCl 0.4 mg 09/07/18 21:00 09/08/18 20:16 Flomax PO 10/07/18 20:59 0.4 mg QPM JENNIFFER Administration Past Medical History Medical History Aortic stenosis Nonischemic cardiomyopathy CVA (cerebral vascular accident) HLD (hyperlipidemia) HTN (hypertension) Urinary retention DM type 2 (diabetes mellitus, type 2) Seizure GI bleed (Acute) Anemia (Acute) Chronic anticoagulation (Acute) Afib HTN (hypertension) (Chronic) Heart disease (Chronic) Kidney disease (Chronic) Past Family History Family History Other Colon cancer Past Surgical History Surgical History H/O aortic valve replacement H/O aortic valve replacement (Resolved) Social History Smoking Status: Never smoker Hx Alcohol Use: No Hx Substance Use: No Physical Exam Vital Signs Last Vital Signs Temp 36.9 C 09/09/18 06:56 Pulse 72 09/09/18 06:56 Resp 20 09/09/18 06:56 BP 122/74 09/09/18 06:56 Pulse Ox 94 09/09/18 06:56 Testing Electrocardiogram Date: 09/07/18 Findings: + AFIB @ (66) Atrial fibrillation, Rightward axis, Non-specific intra-ventricular conduction block, Nonspecific T wave abnormality, Abnormal ECG, When compared with ECG of 11-AUG-2018 11:06, ST depression is no longer present Laboratory Results 09/09/18 06:58 09/09/18 06:58 PT 11.7 Seconds (9.0-12.0) 09/09/18 06:58 INR 1.2 (0.9-1.1) H 09/09/18 06:58 APTT 25.8 Seconds (21.0-31.0) 09/07/18 13:50 09/09/18 09/08/18 06:07 23:58 POC Glucose 90 113 H
[2018-09-09] MEDS: PANTOprazole 40 MG in SYRINGE 0 ML IV SCH ×2 (10:36→20:56)
[2018-09-09] MEDS: SPIRONOLACTONE 25 MG TAB PO SCH (11:52)
[2018-09-09] MEDS: CARVEDILOL 6.25 MG TAB PO SCH ×2 (11:52→20:55)
--- NOTE | 2018-09-09 13:17 | Anesthesiology Progress Note ---
Date of Service September 09, 2018 Anesthesia Post Procedure Vital Signs Vital Signs: Temp Pulse Pulse Resp BP BP Pulse Ox 09/09/18 11:09 36.6 C 60 18 114/66 97 09/09/18 06:56 36.9 C 72 20 122/74 94 09/09/18 03:17 36.5 C 67 20 109/63 91 09/08/18 23:52 36.6 C 69 18 107/58 L 92 09/08/18 16:00 66 09/08/18 15:25 36.7 C 73 18 99/58 L 98 Notes Mental Status: alert / awake / arousable and participated in evaluation Nausea / Vomiting: adequately controlled Pain: adequately controlled Airway Patency, RR, SpO2: stable & adequate BP & HR: stable & adequate Hydration State: stable & adequate Anesthetic Complications: no major complications apparent and Pt Satisfied with anesthetic care
[2018-09-09] MEDS: levETIRAcetam 500 MG TAB PO SCH ×2 (13:41→20:57)
--- NOTE | 2018-09-09 14:04 | History & Physical Report ---
Date of Service September 09, 2018 History of Present Illness Chief Complaint: rectak bleeding Primary Care Provider: Erika Negro for colonoscopy Allergies Allergy/AdvReac Type Severity Reaction Status Date / Time No Known Allergies Allergy NONE Verified 08/11/18 11:48 Home Medications Home Medications Medication Instructions Recorded Confirmed Type amoxicillin 4 cap PO DIRECTED 08/11/18 09/07/18 History aspirin [Aspirin Low Dose] 81 mg PO DAILY 08/11/18 09/07/18 History carvedilol 6.25 mg PO BID 08/11/18 09/07/18 History folic acid 400 mcg PO DAILY 08/11/18 09/07/18 History inswdiwv-eiu-NM-lycopen-lutein 1 tab PO DAILY 08/11/18 09/07/18 History [Complete Multi 50+] spironolactone 25 mg PO DAILY 08/11/18 09/07/18 History acetaminophen [Tylenol] 650 mg PO Q4 PRN 09/07/18 09/07/18 History apixaban [Eliquis] 5 mg PO BID 09/07/18 09/07/18 History ascorbic acid (vitamin C) [Vitamin 500 mg PO DAILY 09/07/18 09/07/18 History C] hydrocortisone [Proctosol HC] 1 applic [place] BID 09/07/18 09/07/18 History insulin detemir U-100 [Levemir 22 unit SUBCUT QPM 09/07/18 09/07/18 History U-100 Insulin] insulin lispro [Humalog U-100 6 unit SUBCUT TIDM 09/07/18 09/07/18 History Insulin] levetiracetam [Keppra] 500 mg PO BID 09/07/18 09/07/18 History omega 0-fky-gxc-fish oil [Fish Oil] 1 cap PO DAILY 09/07/18 09/07/18 History omeprazole 20 mg PO DAILY 09/07/18 09/07/18 History simvastatin 20 mg PO PM 09/07/18 09/07/18 History tamsulosin [Flomax] 0.4 mg PO QPM 09/07/18 09/07/18 History Past Med/Surg History Medical History Aortic stenosis Nonischemic cardiomyopathy CVA (cerebral vascular accident) HLD (hyperlipidemia) HTN (hypertension) Urinary retention DM type 2 (diabetes mellitus, type 2) Seizure GI bleed (Acute) Anemia (Acute) Chronic anticoagulation (Acute) Afib HTN (hypertension) (Chronic) Heart disease (Chronic) Kidney disease (Chronic) Surgical History H/O aortic valve replacement H/O aortic valve replacement (Resolved) Family History Other Colon cancer Social History Communication Ability: Effective Carbon Dioxide Operator Required: No Beliefs That Will Affect Care: Worship Current Living Situation: Family Other Information That Helps Us Care for You: No Feels Safe at Home: Yes Safety Concerns: Feels Safe At This Time Smoking Status: Never smoker Hx Alcohol Use: No Hx Substance Use: No Physical Exam Vital Signs (Past 24 Hours): Last Vital Signs Temp 36.6 C 09/09/18 11:09 Pulse 60 09/09/18 11:09 Resp 18 09/09/18 11:09 BP 114/66 09/09/18 11:09 Pulse Ox 97 09/09/18 11:09 Constitutional: + obese Respiratory: normal respiratory effort Cardiovascular: A fib Gastrointestinal (Abdomen): Percussion/Palpation: abdomen soft
[2018-09-09] MEDS ORDERED: PHENYLEPHRINE 100MCG/ML 5ML SYR ONE (14:54)
[2018-09-09] MEDS ORDERED: LIDOCAINE HCL 2% 2 ML VIAL/AMP(20MG/ML) INFIL ONE (14:54)
[2018-09-09] MEDS ORDERED: PROPOFOL IV EMULSION 10 MG/ML 20 ML VIAL IV ONE (14:54)
--- NOTE | 2018-09-09 15:02 | GI REPORT ---
Patient Name: Froylan Price Procedure Date: 09/09/2018 2:09 PM Date of : 1950 Admit Type: Inpatient Age: 68 Gender: Male Attending MD: Derek Hawkins MD Procedure: Colonoscopy Providers: Derek Hawkins MD Referring MD: Miguel Angel Gonzalez Indications: Rectal bleeding Medicines: Propofol total dose 400 mg IV, Lidocaine 40 mg IV Complications: No immediate complications. Estimated Blood Loss: Estimated blood loss was minimal. Procedure: Pre-Anesthesia Assessment: - Prior to the procedure, a History and Physical was performed, and patient medications, allergies and sensitivities were reviewed. The patient's tolerance of previous anesthesia was reviewed. - The risks and benefits of the procedure and the sedation options and risks were discussed with the patient. All questions were answered and informed consent was obtained. After I obtained informed consent, the scope was passed under direct vision. Throughout the procedure, the patient's blood pressure, pulse, and oxygen saturations were monitored continuously. The Colonoscope was introduced through the anus and advanced to the cecum, identified by appendiceal orifice and ileocecal valve. The colonoscopy was somewhat difficult due to a redundant colon. Successful completion of the procedure was aided by applying abdominal pressure. Findings: The digital rectal exam findings include palpable rectal mass. A 5 mm polyp was found in the cecum. The polyp was sessile. The polyp was removed with a hot snare. Resection and retrieval were complete. Estimated blood loss: none. A 5 mm polyp was found in the hepatic flexure. The polyp was sessile. The polyp was removed with a hot snare. Resection and retrieval were complete. Estimated blood loss: none. Two sessile polyps were found in the transverse colon. The polyps were 3 to 5 mm in size. These polyps were removed with a hot snare. Resection and retrieval were complete. Estimated blood loss: none. A 7 mm polyp was found in the distal transverse colon. The polyp was sessile. The polyp was removed with a hot snare. Resection and retrieval were complete. Estimated blood loss: none. A 4 mm polyp was found in the splenic flexure. The polyp was sessile. The polyp was removed with a hot snare. Resection and retrieval were complete. Estimated blood loss: none. A 12 mm polyp was found in the splenic flexure. The polyp was pedunculated. The polyp was removed with a hot snare. Resection and retrieval were complete. Estimated blood loss: none. A fungating partially obstructing large mass was found in the distal rectum. The mass was circumferential. The mass measured five cm in length. Oozing was present. Biopsies were taken with a cold forceps for histology. Estimated blood loss was minimal. Impression: - Palpable rectal mass found on digital rectal exam. - One 5 mm polyp in the cecum, removed with a hot snare. Resected and retrieved. - One 5 mm polyp at the hepatic flexure, removed with a hot snare. Resected and retrieved. - Two 3 to 5 mm polyps in the transverse colon, removed with a hot snare. Resected and retrieved. - One 7 mm polyp in the distal transverse colon, removed with a hot snare. Resected and retrieved. - One 4 mm polyp at the splenic flexure, removed with a hot snare. Resected and retrieved. - One 12 mm polyp at the splenic flexure, removed with a hot snare. Resected and retrieved. - Likely malignant partially obstructing tumor in the distal rectum. Biopsied. Recommendation: - [facility] for [facility] care. Derek Hawkins M.D. Derek Hawkins MD 09/09/2018 3:01:53 PM This report has been signed electronically. Note Initiated On: 09/09/2018 2:09 PM Number of Addenda: 0 I attest to the content of the Intraoperative Record and orders documented therein, exceptions below {[id number]}
--- NOTE | 2018-09-09 15:56 | Progress Note ---
DATE: 09/09/2018 The patient underwent a colonoscopy today after finding a rectal mass on digital exam yesterday and the patient is presenting with rectal bleeding. CEA returned today at 1.8. Colonoscopy showed a circumferential 5 cm friable rectal tumor just inside the anal orifice. This was biopsied. In addition, he had 7 additional colon polyps that were removed extending into the cecum. The patient tolerated the procedure well. Plan to consult oncology and get a CAT scan of chest, abdomen and pelvis. I ordered a full-liquid diet upon return to the floor.
[2018-09-09] MEDS ORDERED: IOVERSOL 100ml IV PRN (18:18)
--- NOTE | 2018-09-09 18:33 | CT Scan Report ---
CT abd pelvis oral and IV con CLINICAL HISTORY: 68 years-old Male presenting with rectal tumor. TECHNIQUE: Multidetector CT of the abdomen and pelvis was performed after the administration of oral and intravenous contrast. IV contrast: 93 mL of Optiray 320. One or more dose lowering techniques wer e used consistent with the principles of ALARA (as low as reasonably achievable), including automatic exposure control, mA or kV adjustment to individual patient size, and/or use of iterative reconstruc tion. COMPARISON: 08/11/2018. CT DOSE (mGy.cm): The estimated cumulative dose is 2684.47. FINDINGS: Clinical Project Coordinator topogram: Median sternotomy wires and prosthetic aortic valve. Cardiomegaly. Lung bases: Multichamber enlargement of the heart. Coronary artery calcification. Prosthetic aortic v alve. Small bilateral pleural effusions, left greater than right. No focal infiltrate or nodule at th e lung bases. Liver: Normal morphology. No liver lesion. Patent hepatic vasculature allowing for nonopacification o f the hepatic veins due to the phase of contrast. Biliary: No intrahepatic or extrahepatic biliary ductal dilatation. Normal gallbladder. Pancreas: Moderate parenchymal atrophy. Spleen: Normal. Adrenal glands: Thickening of the bilateral adrenal glands, nonspecific. Underlying nodules may be pr esent. The appearance is unchanged from prior. Kidneys and ureters: Bilateral parenchymal atrophy. No nephrolithiasis or hydronephrosis. Ureters non distended. Bladder: Incompletely evaluated secondary to underdistention. Pelvic organs: Prostate and seminal vesicles normal. Bowel: Persistence abnormal rectal wall thickening involving the mid to lower rectum and extending in to the anorectal junction. Gross soft tissue nodularity within the mesorectal fat. The appendix is no t visualized. No bowel obstruction. Peritoneal cavity: Small amount of abdominopelvic ascites. No free intraperitoneal gas. Lymph nodes: Borderline enlarged inguinal lymph nodes, left greater than right. Pathologically enlarg ed right internal iliac lymph node measuring over 2 cm in short axis as on prior exam. Several additi onal adjacent pathologically enlarged right internal iliac lymph nodes again noted. Vasculature: Atherosclerosis of the normal caliber abdominal aorta. IVC patent. Abdominal wall: Diffuse body wall edema. Musculoskeletal: Degenerative changes of the spine. IMPRESSION: 1. Persistent extensive rectal wall thickening involving the mid to lower rectum and anorectal junct ion with gross invasion of the mesorectal fat and lymphadenopathy in the right internal iliac region as on prior exam. No new sites of metastatic disease. 2. Volume overload with anasarca, ascites, and bilateral effusions in the setting of cardiomegaly. Electronically signed by: Ramos Seaman M.D. 09/09/2018 6:32 PM
--- NOTE | 2018-09-09 18:41 | CT Scan Report ---
CT chest w con CLINICAL HISTORY: 68 years-old Male presenting with rectal cancer. TECHNIQUE: Multidetector CT imaging of the chest was performed after the administration of intravenou s contrast. IV contrast: 93 mL of Optiray 320. One or more dose lowering techniques were used consist ent with the principles of ALARA (as low as reasonably achievable), including automatic exposure cont rol, mA or kV adjustment to individual patient size, and/or use of iterative reconstruction. COMPARISON: 08/11/2018. CT DOSE (mGy.cm): The estimated cumulative dose is 2684.47 mGy.cm. FINDINGS: Directory Operator topogram: Median sternotomy wires and prosthetic aortic valve. Cardiomegaly. Soft tissues: Normal thyroid and thoracic inlet. Gynecomastia. No axillary, supraclavicular, mediasti nal, or hilar lymphadenopathy. Atherosclerosis of the aorta. Main pulmonary artery enlarged measuring 4 cm in diameter. Epicardial pacing wires noted. Multichamber enlargement of the heart. Coronary art marissa calcification. Prosthetic aortic valve. Small bilateral pleural effusions. No pericardial effusio n. Ascites noted. Lungs and airways: No pneumothorax. Central airways patent. Pulmonary arteries mildly enlarged relati ve to adjacent bronchi. No interlobular septal thickening. Few bandlike opacities with a basilar pred ominance likely atelectasis. Passive atelectasis also noted in the setting of the pleural effusions. Musculoskeletal: Degenerative changes of the spine. Well-healed median sternotomy. IMPRESSION: 1. No evidence of intrathoracic metastatic disease. 2. Cardiomegaly with mild volume overload. Electronically signed by: Ramos Seaman M.D. 09/09/2018 6:39 PM
[2018-09-09] MEDS ORDERED: FUROSEMIDE 40 MG TAB PO ONE (20:25)
--- NOTE | 2018-09-09 20:42 | Hospitalist Progress Note ---
Date of Service September 09, 2018 Assessment & Plan (1) Rectal mass: likely cause of presenting BRBPR and his hematochezia for several months. this is likely rectal cancer. staging CTs pending -- ordered by GI. oncology consult. hold eliquis given his multiple biopsies today and polyp resections. (2) Colon polyps: numerous - retrieved during colonoscopy today. (3) GI bleed: H/H stable. Likely due to rectal mass. CBC in am. Holding eliquis still and asa. (4) Anemia: acute/chronic. acute component due to acute blood loss anemia. fortunately serial H/H's are stable. no blood products due to Jehova's Witnesses ishan. cbc AM. will need ferrous sulfate supplementation. (5) Chronic anticoagulation: eliquis on hold due to GI bleeding. (6) Seizure: Keppra 500 mg bid (7) DM type 2 (diabetes mellitus, type 2): cont basal-bolus insulin regimen. (8) Afib: rates controlled eliquis on hold (9) Aortic stenosis: no issues (10) H/O aortic valve replacement: noted bioprosthetic 2010 (11) Nonischemic cardiomyopathy: chronic systolic CHF - EF 45% appears to have acute/chronic all fluids stopped dose of lasix tonight then start daily or BID IV lasix tomorrow (12) HTN (hypertension): cont outpatient meds (13) HLD (hyperlipidemia): Continue statin therapy (14) CVA (cerebral vascular accident): left MCA territory stroke on 08/11 which then converted to left posterior parietal lobe with petechial hemoconversion. hospitalized at [place] for such Patient has residual slurred speech - mild. unfortunately, in light of GI bleed - HOLDing Eliquis and aspirin for now (15) Urinary retention: presumably due to BPH alpha penny (16) Morbid obesity with BMI of 40.0-44.9, adult: BMI 43 (17) DVT prophylaxis: Teds, scds, no chemical prophylaxis with GI bleed Subjective s/p colonoscopy today numerous polyps found and rectal mass highly concerning for rectal cancer seen I saw him post c-scope he was aware of findings offered him support he continues to have orthopnea and TADEO Constitutional: no fever Cardiovascular: + dyspnea on exertion, + orthopnea, + paroxysmal nocturnal dyspnea and + edema; no chest pain Gastrointestinal: no abdominal pain and no blood in stools Physical Exam Vital Signs (Past 24 Hours): Last Vital Signs Temp 36.5 C 09/09/18 19:40 Pulse 59 L 09/09/18 19:40 Resp 16 09/09/18 19:40 BP 120/75 09/09/18 19:40 Pulse Ox 96 09/09/18 19:40 Constitutional: well developed, well nourished and + morbidly obese; no acute distress ENMT: external ear and nose normal, oropharynx normal Respiratory: normal respiratory effort, lungs clear to auscultation Cardiovascular: Rate/Rhythm: regular rate; + abnormal rhythm (irregular) Heart Sounds: normal S1 and normal S2; no murmur Vessels: + JVD, posterior tibial pulses present and dorsalis pedis pulses present Extremities: + pedal edema (2+ b/l) Gastrointestinal (Abdomen): normal bowel sounds, soft, nontender, no hepatosplenomegaly Psychiatric: A+Ox3, euthymic affect Results & Data Laboratory Results Hb 9.3 (1) GI bleed GI bleed type/associated pathology: unspecified gastrointestinal hemorrhage type Qualified Code(s): K92.2 - Gastrointestinal hemorrhage, unspecified (2) Anemia Anemia type: unspecified type Qualified Code(s): D64.9 - Anemia, unspecified (3) DM type 2 (diabetes mellitus, type 2) Diabetes mellitus exterminator helper termite insulin use: with nursing home use Diabetes mellitus complication status: without complication Qualified Code(s): E11.9 - Type 2 diabetes mellitus without complications; Z79.4 - terminal block assembler (current) use of insulin (4) Afib Atrial fibrillation type: chronic Qualified Code(s): I48.2 - Chronic atrial fibrillation (5) Aortic stenosis Cardiac valve disease etiology: etiology unspecified Qualified Code(s): I35.0 - Nonrheumatic aortic (valve) stenosis (6) HTN (hypertension) Hypertension type: essential hypertension Qualified Code(s): I10 - Essential (primary) hypertension (7) HLD (hyperlipidemia) Hyperlipidemia type: mixed hyperlipidemia Qualified Code(s): E78.2 - Mixed hyperlipidemia (8) CVA (cerebral vascular accident) CVA mechanism: embolism Precerebral and cerebral artery: middle cerebral artery Laterality of affected vessel: left Qualified Code(s): I63.412 - Cerebral infarction due to embolism of left middle cerebral artery (9) Colon polyps Colon polyp type: unspecified Colon location: unspecified part of colon Qualified Code(s): K63.5 - Polyp of colon
[2018-09-09] MEDS: TAMSULOSIN HCL 0.4 MG CAP PO SCH (20:56)
[2018-09-09] MEDS: SIMVASTATIN 20 MG TAB PO SCH (20:57)
[2018-09-09] MEDS: INSULIN DETEMIR FLEXPEN/FLEX TOUCH 100 UNITS/ML 3ML SQ SCH (20:59)
[2018-09-10] MEDS: INSULIN ASPART 100 UNITS/ML 3 ML PEN SC SCH ×5 (00:12→21:26)
[2018-09-10 06:08] LABS: Hematocrit (blood only) 28.8 % (42-52); Hemoglobin 8.5 g/dL (14.0-18.0); Mean Corpuscular Hgb Conc 29.5 g/dL (32-36); Mean Corpuscular Volume 81.1 fL (80-100); Mean Platelet Volume 9.7 fL (7.4-10.4); Platelet Count 246 K/uL (130-400); RDW Coefficient of Variation 15.3 % (11.5-14.5); RDW Standard Deviation 45.6 fL (36.4-46.3); Red Blood Count 3.55 M/uL (4.7-6.1); White Blood Count 6.07 K/uL (4.8-10.8)
[2018-09-10 06:58] LABS: Calcium 8.2 mg/dl (8.5-10.1); Creatinine Clr Calc Pharmacy 108.9 ml/min; Est GFR (African American) 100.6; Est GFR (Non-African American) 86.8; Magnesium 1.7 mg/dl (1.8-2.4); Potassium 3.3 mmol/L (3.5-5.1)
[2018-09-10] MEDS ORDERED: Nursing to Pharmacy Communication ONE (07:52)
[2018-09-10] MEDS: PANTOprazole 40 MG in SYRINGE 0 ML IV SCH ×2 (08:48→21:21)
[2018-09-10] MEDS: CARVEDILOL 6.25 MG TAB PO SCH ×2 (08:48→21:59)
[2018-09-10] MEDS: SPIRONOLACTONE 25 MG TAB PO SCH (08:49)
[2018-09-10] MEDS: levETIRAcetam 500 MG TAB PO SCH ×2 (08:49→21:59)
--- NOTE | 2018-09-10 10:24 | Consultation Report ---
DATE OF CONSULTATION: 09/10/2018 MEDICAL ONCOLOGY CONSULTATION REASON FOR CONSULTATION: Rectal tumor, suspect adenocarcinoma. HISTORY OF PRESENT ILLNESS: Mr. Price is a pleasant 68-year-old gentleman who presents and subsequently admitted to [facility] with prolonged bright red rectal bleeding. He estimates bleeding started about 6 months ago at varying degrees. He also relates persistent diarrhea, leading up to diagnosis. He had presented with right lower quadrant abdominal pain which made him a bit more concerned. He also noticed increasing shortness of breath and dyspnea on exertion along with generalized fatigue. The patient's hemoglobin on admission was 9.3, I suspect underlying iron deficiency. Colonoscopy was performed by Dr. Hawkins revealing a rectal tumor approximately 5 cm from the anal verge. Biopsies were taken, however, pathology pending at the time of dictation. Staging CT scan of the chest, abdomen and pelvis reveals the aforementioned rectal mass and regional lymphadenopathy. I have been asked to discuss diagnosis, prognosis and treatment options with Mr. Price. PAST MEDICAL HISTORY: Significant for hypertension, heart disease and chronic kidney disease. PAST SURGICAL HISTORY: Aortic valve replacement. CURRENT MEDICATIONS: Include aspirin 81 mg p.o. daily, carvedilol 6.25 mg p.o. b.i.d., folic acid 400 mcg p.o. daily, multivitamin 1 p.o. daily, spironolactone 25 mg p.o. daily, Eliquis 5 mg p.o. b.i.d., vitamin C 500 mg p.o. daily, hydrocortisone 1 application per rectum b.i.d., insulin Levemir 22 units subQ q.p.m., insulin Humalog 6 units subQ t.i.d., Keppra 500 mg p.o. b.i.d., omega-3 fish oil 1 capsule p.o. daily, omeprazole 20 mg p.o. daily, simvastatin 20 mg p.o. daily, Flomax 0.4 mg p.o. daily. ALLERGIES: No known drug allergies. FAMILY HISTORY: Mother suffered from rectal cancer herself, diagnosed in her late 50s. SOCIAL HISTORY: The patient is a [employer], is a nonsmoker, nonalcohol or illicit drug user. REVIEW OF SYSTEMS: Positive for generalized weakness and fatigue, shortness of breath and dyspnea on exertion with abdominal pain and persistent diarrhea. No fevers or chills. He is not anorexic or losing weight. SKIN: No rashes or lesions. No history of dermatoses. HEENT: Negative for headaches, lightheadedness or dizziness. No acute visual or hearing deficits. No sinus symptoms, sore throat, dysphagia. LYMPH: No history of lymphoproliferative disease. CARDIAC: History of valvulopathy, status post aortic valve replacement. No current angina or palpitations. PULMONARY: No history of COPD. He is not short of breath, dyspneic or orthopneic at present. No cough or hemoptysis. GASTROINTESTINAL: Again, positive for right lower quadrant abdominal pain and diarrhea. Denies nausea and vomiting. Positive for bright red rectal bleeding. GENITOURINARY: No hematuria, dysuria, urinary incontinence. PSYCHIATRIC: Negative for anxiety, depression. MUSCULOSKELETAL: Negative for muscle weakness. No arthralgias or myalgias. NEUROLOGIC: Negative for seizure, stroke, or migraine headache. HEMATOLOGIC: Positive for anemia. PHYSICAL EXAMINATION: GENERAL: He is morbidly obese 68-year-old, awake, alert and appropriate, in no acute distress. VITAL SIGNS: Temperature 36.3, pulse 83, respiratory rate 22, blood pressure 118/68. SKIN: Warm, dry, noncyanotic with petechia, rash or ecchymosis. HEENT: Head: Atraumatic, normocephalic. Eyes: PERRLA, EOMI. Sclerae nonicteric. Nares patent without rhinorrhea or discharge. Throat clear. Tongue midline. Mucous membranes are moist. NECK: Supple. Trachea midline. No palpable cervical, supraclavicular lymph nodes. HEART: Regular rate and rhythm. No clicks, rubs, murmurs or gallops. LUNGS: Clear to auscultation bilaterally. ABDOMEN: Obese, soft, nontender, nondistended. No rigidity or guarding. Bowel sounds are active. EXTREMITIES: Musculoskeletal strength and pulses are equal in all 4 quadrants. There is 1-2+ peripheral edema bilaterally noted. NEUROLOGICALLY: He is awake, alert and oriented x3. Cranial nerves II-XII are grossly intact. LABORATORY DATA: WBC count 6070, hemoglobin 8.5, MCV 81, platelet count 246,000. Sodium 144, potassium 3.3, chloride 108, carbon dioxide 30, creatinine 0.90, BUN 15. Magnesium 1.7. RADIOGRAPHIC DATA: CT scan of the abdomen and pelvis, persistent rectal wall thickening in the mid to lower rectum with gross invasion into the mesorectal fat, lymphadenopathy in the right internal iliac region, volume overload with anasarca, ascites, bilateral pleural effusions noted. IMPRESSION: 1. 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 2. Hypomagnesemia. 3. Hypokalemia. 4. Microcytic anemia/iron deficiency. PLAN: I had the pleasure of visiting with Froylan this morning at bedside. This gentleman has had rectal bleeding for about 5-6 months leading up to hospitalization and subsequent diagnosis. The patient unfortunately never underwent screening colonoscopy despite family history of colorectal cancer. Radiographically, it would appear that he has a regional lymph node involvement. By current NCCN guidelines, Mr. Price would require chemoradiation followed by a low anterior resection and subsequent adjuvant chemotherapy. I did not go into details regarding chemoradiation and plan to reconvene with him as outpatient. Perhaps radiation oncology could be consulted while in house if he is to stay another 24 hours or so. Otherwise, please make arrangements to have him seen as outpatient. Will address his anemia as well when he follows up. Replace electrolytes as appropriate. Agree with medical management otherwise. I look forward to seeing him in the office in the next week or two. Thank you very much for allowing me to participate in his care. If you have any questions or concerns, feel free to call me at any time.
[2018-09-10] MEDS ORDERED: MAGNESIUM SULFATE / D5W 1 GM/100 ML BAG IV ONE (12:00)
[2018-09-10] MEDS ORDERED: POTASSIUM CHLORIDE 10 MEQ TABCR PO STA (12:00)
--- NOTE | 2018-09-10 15:57 | Hospitalist Progress Note ---
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 Jacobson saw pt, per note, By current NCCN guidelines, would require chemoradiation followed by a low anterior resection and subsequent adjuvant chemotherapy. consult radio onco Afib on eliquis , continue hold Eliquis GI bleeding likely from the colon mass, hemoglobin 8.5 from 9.3, will continue watch, Possible acute blood loss anemia, see above no blood products due to Jehova's Witnesses ishan. Hypokalemia, hypomagnesemia, replaced chx of Seizure: cont Keppra 500 mg bid DM type 2, Afib, Aortic stenosis, H/O aortic valve replacement, Nonischemic cardiomyopathy an d chronic systolic CHF - EF 45%: Stable continue current medication Dyslipidemia, history of CVA, continue current medication include starting, aspirin is on hold Urinary retention, likely because of BPH, continue alpha penny Morbid obesity with BMI of 40.0-44.9 SCD for DVT prophylaxis , no heparin productive because of colon lesion and GI bleeding Subjective feeling generalized weakness, no more rectal bleeding, eat clear liquid diet, Review of Systems Constitutional: no f/c Respiratory: no cough, sputum, wheezing, or dyspnea on exertion Cardiac: No chest pain, No orthopnea, Abdomen: No pain, No nausea, No vomiting, : No dysuria, No urinary frequency, No incontinence, No hematuria Neurologic: No paralysis, No weakness, No numbness/tingling, No vertigo, No balance problems Physical Exam Vital Signs (Past 24 Hours): Last Vital Signs Temp 36.8 C 09/10/18 15:37 Pulse 85 09/10/18 15:37 Resp 20 09/10/18 15:37 BP 124/76 09/10/18 15:37 Pulse Ox 95 09/10/18 15:37 Physical Exam: General Appearance: Looks weak, frail, WD/WN, no apparent distress, Eyes: normal inspection, PERRL, EOMI, sclerae normal ENT: normal ENT inspection, hearing grossly normal, pharynx normal Neck: supple, no adenopathy, thyroid normal, no JVD, no carotid bruits, trachea midline Respiratory/Chest: chest non-tender, normal breath sounds, no respiratory distress, no accessory muscle use, breath sounds, rales, wheezing Cardiovascular: irregular rate, rhythm, no JVD, no murmur Abdomen: normal bowel sounds, non tender, soft, no organomegaly, Extremities: normal range of motion, non-tender, normal inspection, 1+ pedal edema, no calf tenderness, normal capillary refill, pelvis stable, Neurologic/Psychiatric: yarn comber II-XII nml as tested, no motor/sensory deficits, alert, normal mood/affect, oriented x 3 Skin: normal color, warm/dry, no rash Results & Data Laboratory Results Laboratory Results - last 24 hr 09/09/18 09/09/18 09/10/18 17:33 20:43 00:12 WBC RBC Hgb Hct MCV MCH MCHC RDW Std Deviation RDW Coeff of Amandeep Plt Count MPV Sodium Potassium Chloride Carbon Dioxide Anion Gap BUN Creatinine Est Cr Clr Drug Dosing Est GFR ( Amer) Est GFR (Non-Af Amer) BUN/Creatinine Ratio Glucose POC Glucose 93 103 H 136 H Calcium Magnesium 09/10/18 09/10/18 09/10/18 05:50 05:50 06:05 WBC 6.07 RBC 3.55 L Hgb 8.5 L Hct 28.8 L MCV 81.1 MCH 23.9 L MCHC 29.5 L RDW Std Deviation 45.6 RDW Coeff of Amandeep 15.3 H Plt Count 246 MPV 9.7 Sodium 144 Potassium 3.3 L D Chloride 108 H Carbon Dioxide 30 Anion Gap 6.0 BUN 15 Creatinine 0.90 Est Cr Clr Drug Dosing 108.9 Est GFR ( Amer) 100.6 Est GFR (Non-Af Amer) 86.8 BUN/Creatinine Ratio 17.0 Glucose 103 H POC Glucose 108 H Calcium 8.2 L Magnesium 1.7 L 09/10/18 09/10/18 07:24 11:01 WBC RBC Hgb Hct MCV MCH MCHC RDW Std Deviation RDW Coeff of Amandeep Plt Count MPV Sodium Potassium Chloride Carbon Dioxide Anion Gap BUN Creatinine Est Cr Clr Drug Dosing Est GFR ( Amer) Est GFR (Non-Af Amer) BUN/Creatinine Ratio Glucose POC Glucose 93 187 H Calcium Magnesium (1) GI bleed GI bleed type/associated pathology: unspecified gastrointestinal hemorrhage type Qualified Code(s): K92.2 - Gastrointestinal hemorrhage, unspecified (2) DM type 2 (diabetes mellitus, type 2) Diabetes mellitus complication status: without complication Diabetes mellitus long-term insulin use: with long-term use Qualified Code(s): E11.9 - Type 2 diabetes mellitus without complications; 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 (3) Anemia Anemia type: unspecified type Qualified Code(s): D64.9 - Anemia, unspecified (4) Aortic stenosis Cardiac valve disease etiology: etiology unspecified Qualified Code(s): I35.0 - Nonrheumatic aortic (valve) stenosis (5) Afib Atrial fibrillation type: chronic Qualified Code(s): I48.2 - Chronic atrial fibrillation (6) HLD (hyperlipidemia) Hyperlipidemia type: mixed hyperlipidemia Qualified Code(s): E78.2 - Mixed hyperlipidemia (7) HTN (hypertension) Hypertension type: essential hypertension Qualified Code(s): I10 - Essential (primary) hypertension (8) Colon polyps Colon location: unspecified part of colon Colon polyp type: unspecified Qualified Code(s): K63.5 - Polyp of colon (9) CVA (cerebral vascular accident) CVA mechanism: embolism Laterality of affected vessel: left Precerebral and cerebral artery: middle cerebral artery Qualified Code(s): I63.412 - Cerebral infarction due to embolism of left middle cerebral artery
[2018-09-10] MEDS: INSULIN DETEMIR FLEXPEN/FLEX TOUCH 100 UNITS/ML 3ML SQ SCH (21:25)
[2018-09-10] MEDS: SIMVASTATIN 20 MG TAB PO SCH (22:00)
[2018-09-10] MEDS: TAMSULOSIN HCL 0.4 MG CAP PO SCH (22:00)
[2018-09-11 06:22] LABS: Basophils # (auto) 0.02 K/uL (0-0.2); Basophils % (auto) 0.3 %; Eosinophils # (auto) 0.45 K/uL (0-0.5); Eosinophils % (auto) 7.7 %; Hematocrit (blood only) 27.9 % (42-52); Hemoglobin 8.4 g/dL (14.0-18.0); Immature Granulocytes # (auto) 0.01 K/uL (0.00-0.02); Immature Granulocytes % (auto) 0.2 %; Lymphocytes # (auto) 2.09 K/uL (1.2-3.4); Lymphocytes % (auto) 35.7 %; Mean Corpuscular Hgb Conc 30.1 g/dL (32-36); Mean Corpuscular Volume 80.6 fL (80-100); Mean Platelet Volume 10.1 fL (7.4-10.4); Neutrophils # (auto) 2.58 K/uL (1.4-6.5); Neutrophils % (auto) 44.1 %; Platelet Count 228 K/uL (130-400); RDW Coefficient of Variation 15.4 % (11.5-14.5); RDW Standard Deviation 45.5 fL (36.4-46.3); Red Blood Count 3.46 M/uL (4.7-6.1); White Blood Count 5.85 K/uL (4.8-10.8)
[2018-09-11 06:57] LABS: RBC Morphology Unremarkable
[2018-09-11 07:01] LABS: BUN Creatinine Ratio 10.8 (10-20); Calcium 8.1 mg/dl (8.5-10.1); Est GFR (African American) 78.1; Est GFR (Non-African American) 67.4; Phosphorus 3.5 mg/dl (2.5-4.9)
[2018-09-11 08:17] LABS: Potassium 3.5 mmol/L (3.5-5.1)
[2018-09-11 08:18] LABS: Magnesium 1.8 mg/dl (1.8-2.4)
[2018-09-11] MEDS: INSULIN ASPART 100 UNITS/ML 3 ML PEN SC SCH ×2 (08:29→12:47)
[2018-09-11] MEDS: PANTOprazole 40 MG in SYRINGE 0 ML IV SCH (08:29)
[2018-09-11] MEDS: CARVEDILOL 6.25 MG TAB PO SCH (08:29)
[2018-09-11] MEDS: levETIRAcetam 500 MG TAB PO SCH (09:05)
[2018-09-11] MEDS: SPIRONOLACTONE 25 MG TAB PO SCH (09:05)
--- NOTE | 2018-09-11 10:30 | Discharge Summary ---
Date of Service September 11, 2018 Admission HPI Per Admitting Provider for colonoscopy Principal Diagnosis no Discharge Data Allergies Allergy/AdvReac Type Severity Reaction Status Date / Time No Known Allergies Allergy NONE Verified 08/11/18 11:48 Consultations 09/07/18 18:19 Consult Cardiology Routine Consult Gastroenterology Routine 09/09/18 15:11 Consult Oncology Routine 09/10/18 16:02 Consult Radiation Oncology Routine Procedures Performed Operation Date: 09/09/18 09:00 Actual Procedures p Colonoscopy Polypectomy(Not Applicable) - Derek Hawkins Ordered Studies 09/09/18 15:15 CT abd pelvis oral and IV con Routine 09/09/18 15:16 CT chest w con Routine Hospital Course (1) Rectal mass: (2) Colon polyps: (3) GI bleed: (4) Anemia: (5) Chronic anticoagulation: (6) Seizure: (7) DM type 2 (diabetes mellitus, type 2): (8) Afib: (9) Aortic stenosis: (10) H/O aortic valve replacement: (11) Nonischemic cardiomyopathy: (12) HTN (hypertension): cont outpatient meds (13) HLD (hyperlipidemia): (14) CVA (cerebral vascular accident): (15) Urinary retention: (16) Morbid obesity with BMI of 40.0-44.9, adult: (17) DVT prophylaxis: 68-year-old male admitted because of rectal bleeding, much 2018, Rectal mass: this is likely rectal cancer.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 Jacobson saw pt, per note, By current NCCN guidelines, would require chemoradiation followed by a low anterior resection and subsequent adjuvant chemotherapy. consult radio onco requested, talk to Dr. Nieto, he will going to see the patient Afib on eliquis , has been on hold Eliquis, with present of registered nurse, discussed with patient about the risk and benefit of Eliquis anticoagulation for his A. fib and stroke prevention, and his condition of cancer which will increase the risk of the blood clot, however he has active rectal bleeding with possible cancer, we have to hold Eliquis for now, patient understand the risk of stroke, he understand and willing to take on a risk by himself GI bleeding likely from the colon mass, hemoglobin 8.4 fro, 8.5 from 9.3, see above Possible acute blood loss anemia, see above no blood products due to Jehova's Witnesses ishan. Discussed with patient again with present of registered nurse, he continued to decline blood transfusion, he is agreeable to start iron p.o., which is ordered, stool softener ordered as well Hypokalemia, hypomagnesemia, replaced chx of Seizure: cont Keppra 500 mg bid DM type 2, Afib, Aortic stenosis, H/O aortic valve replacement, Nonischemic cardiomyopathy an d chronic systolic CHF - EF 45%: Stable continue current medication Dyslipidemia, history of CVA, continue current medication include starting, asp irin is on hold Urinary retention, likely because of BPH, continue alpha penny Morbid obesity with BMI of 40.0-44.9 SCD for DVT prophylaxis , no heparin productive because of colon lesion and GI bleeding Patient will be discharged home after seen by Dr. Nieto Discharge instructions below : you have Rectal mass, likely rectal cancer, any follow-up with Dr. Hawkins You need to follow-up with oncology Dr. Jacobson, and radiation oncologist Dr. Nieto as instructed You have Afib was on eliquis , we have to hold Eliquis with the risk of the stroke, you understand the risks, will continue aspirin You have anemia likely from GI bleeding the past that required transfusion however no blood products due to your Jehova's Witnesses ishan. Subjective upon discharge feeling generalized weakness, still have some minimal rectal bleeding when have bowel movement, tolerate diet, no nausea vomiting no abdominal pain Review of Systems at discharge Constitutional: no f/c Respiratory: no cough, sputum, wheezing, or dyspnea on exertion Cardiac: No chest pain, No orthopnea, Abdomen: No pain, No nausea, No vomiting, : No dysuria, No urinary frequency, No incontinence, No hematuria Neurologic: No paralysis, No weakness, No numbness/tingling, No vertigo, No balance problems Physical Exam at discharge, Afebrile General Appearance: Looks weak, frail, WD/WN, no apparent distress, Eyes: normal inspection, PERRL, EOMI, sclerae normal ENT: normal ENT inspection, hearing grossly normal, pharynx normal Neck: supple, no adenopathy, thyroid normal, no JVD, no carotid bruits, trachea midline Respiratory/Chest: chest non-tender, normal breath sounds, no respiratory distress, no accessory muscle use, breath sounds, rales, wheezing Cardiovascular: irregular rate, rhythm, no JVD, no murmur Abdomen: normal bowel sounds, non tender, soft, no organomegaly, Extremities: normal range of motion, non-tender, normal inspection, 1+ pedal edema, no calf tenderness, normal capillary refill, pelvis stable, Neurologic/Psychiatric: geneticist II-XII nml as tested, no motor/sensory deficits, alert, normal mood/affect, oriented x 3 Skin: normal color, warm/dry, no rash Lab data upon discharge: Laboratory Results - last 24 hr 09/10/18 09/10/18 09/10/18 11:01 16:31 20:18 WBC RBC Hgb Hct MCV MCH MCHC RDW Std Deviation RDW Coeff of Amandeep Plt Count MPV Immature Gran % (Auto) Neut % (Auto) Lymph % (Auto) [place] % (Auto) Eos % (Auto) Baso % (Auto) Immature Gran # (Auto) Neut # (Auto) Lymph # (Auto) [place] # (Auto) Eos # (Auto) Baso # (Auto) RBC Morphology Sodium Potassium Chloride Carbon Dioxide Anion Gap BUN Creatinine Est Cr Clr Drug Dosing Est GFR ( Amer) Est GFR (Non-Af Amer) BUN/Creatinine Ratio Glucose POC Glucose 187 H 103 H 115 H Calcium Phosphorus Magnesium 09/11/18 09/11/18 09/11/18 05:15 05:15 07:11 WBC 5.85 RBC 3.46 L Hgb 8.4 L Hct 27.9 L MCV 80.6 MCH 24.3 L MCHC 30.1 L RDW Std Deviation 45.5 RDW Coeff of Amandeep 15.4 H Plt Count 228 MPV 10.1 Immature Gran % (Auto) 0.2 Neut % (Auto) 44.1 Lymph % (Auto) 35.7 [place] % (Auto) 12.0 Eos % (Auto) 7.7 Baso % (Auto) 0.3 Immature Gran # (Auto) 0.01 Neut # (Auto) 2.58 Lymph # (Auto) 2.09 [place] # (Auto) 0.70 H Eos # (Auto) 0.45 Baso # (Auto) 0.02 RBC Morphology Unremarkable Sodium 140 Potassium Chloride 105 Carbon Dioxide 30 Anion Gap 5.0 BUN 12 Creatinine 1.11 Est Cr Clr Drug Dosing 89.0 Est GFR ( Amer) 78.1 Est GFR (Non-Af Amer) 67.4 BUN/Creatinine Ratio 10.8 Glucose 119 H POC Glucose 113 H Calcium 8.1 L Phosphorus 3.5 Magnesium 09/11/18 07:36 WBC RBC Hgb Hct MCV MCH MCHC RDW Std Deviation RDW Coeff of Amandeep Plt Count MPV Immature Gran % (Auto) Neut % (Auto) Lymph % (Auto) [place] % (Auto) Eos % (Auto) Baso % (Auto) Immature Gran # (Auto) Neut # (Auto) Lymph # (Auto) [place] # (Auto) Eos # (Auto) Baso # (Auto) RBC Morphology Sodium Potassium 3.5 Chloride Carbon Dioxide Anion Gap BUN Creatinine Est Cr Clr Drug Dosing Est GFR ( Amer) Est GFR (Non-Af Amer) BUN/Creatinine Ratio Glucose POC Glucose Calcium Phosphorus Magnesium 1.8 Total Time Total Time Spent Total Time Spent (In Minutes): 35 Total Time Includes: Examination of the Patient, Discharge Planning, Medication Reconciliation and Communication With Other Providers Discharge Plan Discharge Items Patient Disposition: Home - Self-Care Reason For Visit: GIB Discharge Diagnosis: Possible colon rectal cancer Condition: Fair Discharge Goals: Decrease discomfort, Diagnostic testing and Learn about illness Activity: Resume your previous activity Non-emergency contact: Primary Care Provider and Oncologist Call non-emergency contact if: you have any medication questions Follow-up/Referrals: Erika Negro [Primary Care Provider] - Diet: Heart Healthy Add Provider Instructions: you have Rectal mass, likely rectal cancer, any follow-up with Dr. Hawkins You need to follow-up with oncology Dr. Jacobson, and radiation oncologist Dr. Nieto as instructed You have Afib was on eliquis , we have to hold Eliquis with the risk of the stroke, you understand the risks, will continue aspirin You have anemia likely from GI bleeding the past that required transfusion however no blood products due to your Jehova's Witnesses ishan. you need to follow up with your primary care physician in 1 week, - take medication as instructed, never overdose or any misuse, or take with alcohol, because misuse of medicine may cause organ damage or , call me, or your primary care physician if have questions of discharge medicaitons. - call your primary care physician, or go to local emergency room if has any fever/chill, chest pain, shortness of breathing, nausea/vomiting/abdominal pain, facial droop/slurry speech/local weakness, or if has any questions. - fall precaution - diet as instructed - you need to follow up with your subspecialist, such as Dr. Dr. Jcaobson and Dr. Nieto Prescriptions: New docusate sodium 100 mg Capsule 100 mg PO BID 30 Days Qty: 60 RF: 0 ferrous sulfate 325 mg (65 mg iron) Tablet,Delayed Release (Dr/Ec) 325 mg PO TIDM 30 Days Qty: 30 RF: 0 Continued carvedilol 6.25 mg tablet 6.25 mg PO BID RF: 0 folic acid 400 mcg Tablet 400 mcg PO DAILY RF: 0 aspirin [Aspirin Low Dose] 81 mg Tablet,Delayed Release (Dr/Ec) 81 mg PO DAILY RF: 0 spironolactone 25 mg Tablet 25 mg PO DAILY RF: 0 Complete Multi 50+ 500-300-250 mcg Tablet 1 tab PO DAILY RF: 0 acetaminophen [Tylenol] 325 mg Tablet 650 mg PO Q4 PRN (Reason: Fever Or Pain) RF: 0 levetiracetam [Keppra] 500 mg tablet 500 mg PO BID RF: 0 hydrocortisone [Proctosol HC] 2.5 % Cream With Perineal Applicator 1 applic NV BID RF: 0 ascorbic acid (vitamin C) [Vitamin C] 500 mg Tablet 500 mg PO DAILY RF: 0 tamsulosin [Flomax] 0.4 mg capsule 0.4 mg PO QPM RF: 0 simvastatin 20 mg Tablet 20 mg PO PM RF: 0 Humalog U-100 Insulin 100 unit/mL solution 6 unit subcut TIDM RF: 0 Levemir U-100 Insulin 100 unit/mL solution 22 unit subcut QPM RF: 0 omeprazole 20 mg Tablet,Delayed Release (Dr/Ec) 20 mg PO DAILY RF: 0 omega [id number]-fish oil [Fish Oil] 1,000 mg (120 mg-180 mg) Capsule 1 cap PO DAILY RF: 0 Discontinued amoxicillin 500 mg capsule 4 cap PO DIRECTED RF: 0 Eliquis 5 mg tablet 5 mg PO BID RF: 0 Stand-Alone Forms: [facility] Discharge Orders: Discharge Order (Routine); Ordered 09/11/18 Ordered By: Bobby Beck Admission Data Admit Date/Time: 09/07/18 15:56 Attending Provider: Bobby Beck Admit Provider: Liberty Camargo Primary Care Provider: Erika Negro Other Providers: Miguel Angel Gonzalez ; Jose Leone ; Gaston Decker ; Ayad Zuniga ; Yovany Nieto Service: Medical Other Interventions: Discharge Summary Assessment (RN) Last Done: 09/09/18 15:38
[2018-09-11] MEDS ORDERED: DOCUSATE SODIUM 100 MG CAP PO SCH (11:00)
[2018-09-11 11:47] VITALS: BP 107/61; PULSE 60; TEMP 98.6; O2SAT 97
[2018-09-11] MEDS ORDERED: FERROUS SULFATE 325 MG TAB PO SCH (12:00)
--- NOTE | 2018-09-11 12:54 | Radiation OncologyConsultation ---
Date of Consultation September 11, 2018 Assessment & Plan (1) Rectal adenocarcinoma: Assessment: Mr. Price is a 68-year-old gentleman who presents with very locally advanced rectal adenocarcinoma with no evidence of distant metastatic disease to the liver or lungs. The patient was admitted to the hospital for workup and evaluation. The patient was seen by medical oncology, Dr. Jacobson, who has recommended outpatient management with potential chemotherapy and radiation therapy followed by surgical resection. We are now seen the patient in consultation to discuss oral radiation therapy. Recommendation: This patient requires potential further workup including consultation with a colorectal surgeon as well as discussion in multidisciplinary tumor board for final recommendations given potential locally advanced metastatic disease. If the patient is deemed to be an incurable given locally advanced bel metastasis, I would recommend palliative radiation therapy followed by systemic chemotherapy. If the patient is still felt to be potentially resectable, we would recommend upfront definitive chemotherapy and radiation therapy followed by surgical resection. Plan: 1. Multidisciplinary tumor board discussion on Thursday. 2. Will schedule patient for CT simulation for treatment planning in the outpatient setting if radiation therapy is recommended. We will call patient with tentative appointment on Thursday to be scheduled after tumor board. 3. Follow-up with medical oncology in the outpatient setting. 4. Patient should be seen by primary care physician for medical optimization. Rationale/Explanation of Treatment: We did explain the indications, alternatives, benefits, risks and side effects of external beam radiation therapy. We did explain the most common side effects including, but not limited to, skin erythema, skin breakdown, hyperpigmentation, telangiectasia, wound complications, perianal fistula development, fistula formation, bowel obstruction, bowel perforation, dysuria, increased urinary frequency, urgency, diarrhea, constipation, melena, hematochezia, hematuria, radiation cystitis, radiation proctitis, fatigue, decreased blood counts, wound complications from surgery, rectal incontinence, secondary malignancy development. We did explain the procedures and daily process of radiation therapy. The patient understands and would be willing to consent to treatment. The patient had multiple questions which were answered to their full satisfaction. Thank you for allowing us to participate in the care of this patient. This chart was completed in part utilizing [employer] Voice Recognition software. Attempts were made to minimize the grammatical errors, random word insertions, pronoun errors and incomplete sentences. Any formal questions or c oncerns about the content, text or information contained within the body of this dictation should be directly addressed to the provider for clarification. Yovany Nieto MD Department of Radiation Oncology [facility] History of Present Illness Reason for Consultation: Rectal cancer with bleeding Requesting Physician: Dr. Bobby Beck Attending Physician: Yovany Nieto MD History of Present Illness Fall/Winter 2017 to present. Patient notes intermittent rectal bleeding. He also states that he is having some rectal incontinence and can no longer control bowel movements. He denies any rectal pain. He has no other complaints. 08/11/2018. CT of abdomen/pelvis. IMPRESSION: 1. Rectal wall thickening extending over a distance of 12 cm extending from the anus to the rectosigmoid junction there is associated pathologic adenopathy with in the perirectal space, pelvic sidewall, and central mesentery of the pelvis. GI consultation is recommended in follow-up. 2. No evidence of bowel obstruction. No evidence of free air. 09/07/2018. Patient admitted to [facility] due to gastrointestinal bleeding with anemia. 09/09/2018. CT of chest. IMPRESSION: 1. No evidence of intrathoracic metastatic disease. 2. Cardiomegaly with mild volume overload. 09/09/2018. CT of abdomen/pelvis. IMPRESSION: 1. Persistent extensive rectal wall thickening involving the mid to lower rectum and anorectal junction with gross invasion of the mesorectal fat and lymphadenopathy in the right internal iliac region as on prior exam. No new sites of metastatic disease. 2. Volume overload with anasarca, ascites, and bilateral effusions in the setting of cardiomegaly. 09/09/2018. Colonoscopy by Dr. Hawkins. Findings include palpable rectal mass found on digital rectal exam. A fungating partially obstructing large mass was found in the distal rectum. Mass was circumferential. The mass was 5 cm in length. Oozing was present. Biopsies were taken with cold forceps. Multiple polyps were biopsied and resected. 09/09/2018. Rectum, mass, biopsy: Invasive adenocarcinoma, well differentiated. 09/10/2018. Medical oncology consultation with Dr. Jacobson. Dr. Jacobson has recommended consideration of potential chemotherapy and radiation therapy followed by surgical resection. Dr. Jacobson will see the patient in the outpatient setting. Currently, the patient symptoms are stable. He does continue to have some minimal rectal bleeding. He denies a significant weight loss. Allergies Allergy/AdvReac Type Severity Reaction Status Date / Time No Known Allergies Allergy NONE Verified 08/11/18 11:48 Home Medications Home Medications Medication Instructions Recorded Confirmed Type amoxicillin 4 cap PO DIRECTED 08/11/18 09/07/18 History aspirin [Aspirin Low Dose] 81 mg PO DAILY 08/11/18 09/07/18 History carvedilol 6.25 mg PO BID 08/11/18 09/07/18 History folic acid 400 mcg PO DAILY 08/11/18 09/07/18 History ofaanfjs-cxu-VJ-lycopen-lutein 1 tab PO DAILY 08/11/18 09/07/18 History [Complete Multi 50+] spironolactone 25 mg PO DAILY 08/11/18 09/07/18 History acetaminophen [Tylenol] 650 mg PO Q4 PRN 09/07/18 09/07/18 History apixaban [Eliquis] 5 mg PO BID 09/07/18 09/07/18 History ascorbic acid (vitamin C) [Vitamin 500 mg PO DAILY 09/07/18 09/07/18 History C] hydrocortisone [Proctosol HC] 1 applic [place] BID 09/07/18 09/07/18 History insulin detemir U-100 [Levemir 22 unit SUBCUT QPM 09/07/18 09/07/18 History U-100 Insulin] insulin lispro [Humalog U-100 6 unit SUBCUT TIDM 09/07/18 09/07/18 History Insulin] levetiracetam [Keppra] 500 mg PO BID 09/07/18 09/07/18 History omega 8-tic-hlb-fish oil [Fish Oil] 1 cap PO DAILY 09/07/18 09/07/18 History omeprazole 20 mg PO DAILY 09/07/18 09/07/18 History simvastatin 20 mg PO PM 09/07/18 09/07/18 History tamsulosin [Flomax] 0.4 mg PO QPM 09/07/18 09/07/18 History docusate sodium 100 mg PO BID 30 Days #60 cap 09/11/18 Rx ferrous sulfate 325 mg PO TIDM 30 Days #30 tab 09/11/18 Rx Patient History Medical History Aortic stenosis Nonischemic cardiomyopathy CVA (cerebral vascular accident) HLD (hyperlipidemia) HTN (hypertension) Urinary retention DM type 2 (diabetes mellitus, type 2) Seizure GI bleed (Acute) Anemia (Acute) Chronic anticoagulation (Acute) Afib HTN (hypertension) (Chronic) Heart disease (Chronic) Kidney disease (Chronic) Surgical History H/O aortic valve replacement H/O aortic valve replacement (Resolved) Family History Other Colon cancer Social History Preferred Language: Czech Beliefs That Will Affect Care: Congregation Current Living Situation: Family Other Information That Helps Us Care for You: No Feels Safe at Home: Yes Safety Concerns: Feels Safe At This Time Smoking Status: Never smoker Hx Alcohol Use: No Hx Substance Use: No Review of Systems Constitutional: as per Subjective / HPI Eyes: as per Subjective / HPI Ear, Nose, Mouth, Throat: as per Subjective / HPI Respiratory: as per Subjective / HPI Cardiovascular: as per Subjective / HPI Gastrointestinal: as per Subjective / HPI Musculoskeletal: as per Subjective / HPI Integumentary: as per Subjective / HPI Neurologic: as per Subjective / HPI Psychiatric: as per Subjective / HPI Endocrine: as per Subjective / HPI Hematologic / Lymphatic: as per Subjective / HPI Allergy / Immunological: as per Subjective / HPI Physical Exam Vital Signs (Past 24 Hours): Last Vital Signs Temp 37.0 C 09/11/18 11:46 Pulse 60 09/11/18 11:46 Resp 20 09/11/18 11:46 BP 107/61 09/11/18 11:46 Pulse Ox 97 09/11/18 11:46 Constitutional: WD/WN, vitals as above well developed and well nourished Eyes: PERRL, conjunctivae normal, anicteric sclerae ENMT: external ear and nose normal, oropharynx normal Neck: trachea midline, no thyromegaly Respiratory: normal respiratory effort, lungs clear to auscultation Cardiovascular: RRR, no murmur, no edema Gastrointestinal (Abdomen): normal bowel sounds, soft, nontender, no hepatosplenomegaly Patient deferred rectal examination today. We will perform digital rectal examination at the time of CT simulation for treatment planning. Musculoskeletal: no cyanosis or clubbing, extremities motor strength 5/5 Skin: no rashes, warm and dry Neurologic: patellar DTR's 2+ bilat, sensation intact and PERRL, EOMI, accommodation nl, no face palsy, no dysarthria Psychiatric: A+Ox3, euthymic affect Results Additional Studies 09/07/18 14:12 XR chest 1V portable Stat 09/07/18 14:13 ECG 12 lead EKG Stat 09/09/18 15:15 CT abd pelvis oral and IV con Routine 09/09/18 15:16 CT chest w con Routine Time Spent Attending I spent 30 minutes for this consultation, which included obtaining clinical i nformation, performing a physical exam, recommending a plan of action and answering questions. Greater than 50% of the time spent was direct face to face interaction with the patient.
--- NOTE | 2018-09-16 11:40 | Cardiology Progress Note ---
Date of Service September 16, 2018 Assessment & Plan (1) Aortic stenosis: Patient underwent bioprosthetic valve replacement in 2010. Last echocardiogram demonstrated normal function of the valve. Recently evaluated at [facility]. No need for evaluation currently. (2) Nonischemic cardiomyopathy: He appears to have had some decompensated heart failure. He is felt to have mildly reduced LV systolic function. In the past he was on an outpatient diuretic. It would seem reasonable to discharge him on the same regimen as he done quite well in the past. He is currently diuresing well in the hospital. I think at the time of discharge to return to 80 mg of Lasix daily would be reasonable. He can monitor his weights at home and have a follow-up chemistry profile after discharge. He has been maintained on a low-dose beta blockade and Spironolactone. Anton inhibition would be ideal but has been held due to concerns over hypotension. (3) Afib: Permanent. He has a long history of atrial fibrillation in the past refused anticoagulation. He has had a cerebrovascular event and ideally would be on anticoagulation. However, the more pressing issue recently has been gastrointestinal hemorrhage. Adequate regulation is currently being deferred as result. He could be resumed at the earliest opportunity based on his clinical status. (4) Elevated troponin: He has very mildly elevated troponins. Perhaps slightly increased since his last admission. I do not believe this represents a significant concern. I do not believe he suffers from acute coronary syndrome. He may have some occult coronary disease. However, he is not having symptoms of coronary insufficiency. Also, he is a poor candidate currently for any intervention given concerns over bleeding. (5) Abnormal EKG: The patient is on telemetry monitoring yesterday was noted to have an abnormal rhythm. There was some concern that he had polymorphic ventricular tachycardia. This seems to have occurred around 5 PM. The patient denies any symptoms at that time. Review of the actual recordings suggest that this was likely artifactual. I do not believe he requires any additional intervention or evaluation for this artifact. He can continue to be monitored on telemetry. Present on Admission?: No Subjective Patient was recently readmitted for symptoms of volume overload and pulmonary edema. Today he is feeling much better. He reports having been ambulatory around his room without symptoms of significant dizziness. He had some very mild dyspnea but again, improved from admission. No chest pain. No sense of palpitation. I questioned him regarding any symptoms that occurred around dinnertime yesterday. He cannot recall any sense of palpitation, dizziness or presyncope. Physical Exam Vital Signs (Past 24 Hours): Last Vital Signs Temp 37.0 C 09/11/18 11:46 Pulse 60 09/11/18 11:46 Resp 20 09/11/18 11:46 BP 107/61 09/11/18 11:46 Pulse Ox 97 09/11/18 11:46 Physical Exam: The patient is alert and oriented. Mood and affect appeared normal. He answered all questions appropriately. Obese HEENT: Pupils are equal and reactive to light and accommodation. Extraocular movements are intact. The sclerae are anicteric. Neuro: Cranial nerves intact Neck: Patient's neck is supple. He has palpable carotid pulses bilaterally without bruits on auscultation. There is no evidence of jugular venous distenti on. The thyroid is not enlarged. Lungs: Crackles in the bases bilaterally. No expiratory wheezing. Normal respiratory effort. Cardiac: Heart demonstrates an irregular rate and rhythm. Normal S1 and S2. No murmurs on examination. Pulses: The patient has palpable radial pulses bilaterally that are equal in intensity Extremities: There was no evidence of hypoperfusion. There is no cyanosis or clubbing. Severe peripheral edema in both lower extremities to the knees Skin: I did not appreciate any rashes on examination today. Results & Data ECG Additional Comments: Telemetry demonstrates atrial fibrillation controlled ventricular response. (1) Aortic stenosis Cardiac valve disease etiology: etiology unspecified Qualified Code(s): I35.0 - Nonrheumatic aortic (valve) stenosis (2) Afib Atrial fibrillation type: chronic Qualified Code(s): I48.2 - Chronic atrial fibrillation
== END 2018-09-11 14:30 | disposition home or self-care (01) | DRG 378 ==
LOC: ED 13:30 → 2S 15:56 → SUATTDRO 15:56 → 2S 18:03 → 4E 09-10 15:04
DX: Z79.82 Long term (current) use of aspirin; I51.9 Heart disease, unspecified; E87.6 Hypokalemia; Z80.0 Family history of malignant neoplasm of digestive organs; C20 Malignant neoplasm of rectum; I35.0 Nonrheumatic aortic (valve) stenosis; G40.909 Epilepsy, unspecified, not intractable, without status epilepticus; K92.2 Gastrointestinal hemorrhage, unspecified; K63.5 Polyp of colon; Z95.2 Presence of prosthetic heart valve; Z66 Do not resuscitate; Z79.01 Long term (current) use of anticoagulants; I48.2 Chronic atrial fibrillation; Z68.41 Body mass index [BMI] 40.0-44.9, adult; Z79.4 Long term (current) use of insulin; I42.9 Cardiomyopathy, unspecified; R33.9 Retention of urine, unspecified; D62 Acute posthemorrhagic anemia; E66.01 Morbid (severe) obesity due to excess calories; N40.1 Benign prostatic hyperplasia with lower urinary tract symptoms; E83.42 Hypomagnesemia; Z86.73 Personal history of transient ischemic attack (TIA), and cerebral infarction without residual deficits; E11.9 Type 2 diabetes mellitus without complications; E78.5 Hyperlipidemia, unspecified

== ENCOUNTER 2018-09-14 11:35 | Inpatient (IN) ==
[2018-09-14] MEDS ORDERED: LEVALBUTEROL 1.25MG/0.5ML NEB NEB STA (12:07)
[2018-09-14] MEDS ORDERED: FUROSEMIDE 40 MG/4 ML VIAL IV STA (12:21)
[2018-09-14 12:25] LABS: Basophils # (auto) 0.03 K/uL (0-0.2); Basophils % (auto) 0.4 %; Eosinophils # (auto) 0.38 K/uL (0-0.5); Eosinophils % (auto) 4.8 %; Hematocrit (blood only) 33.2 % (42-52); Hemoglobin 9.8 g/dL (14.0-18.0); Immature Granulocytes # (auto) 0.02 K/uL (0.00-0.02); Immature Granulocytes % (auto) 0.3 %; Lymphocytes # (auto) 1.82 K/uL (1.2-3.4); Lymphocytes % (auto) 22.9 %; Mean Corpuscular Hgb Conc 29.5 g/dL (32-36); Mean Corpuscular Volume 81.8 fL (80-100); Mean Platelet Volume 10.4 fL (7.4-10.4); Monocytes # (auto) 0.74 K/uL (0.11-0.59); Monocytes % (auto) 9.3 %; Neutrophils # (auto) 4.96 K/uL (1.4-6.5); Neutrophils % (auto) 62.3 %; Nucleated RBC # (auto) 0.02 K/uL (0-0); Nucleated RBC % (auto) 0.2 %; Platelet Count 218 K/uL (130-400); RDW Coefficient of Variation 15.7 % (11.5-14.5); RDW Standard Deviation 46.9 fL (36.4-46.3); Red Blood Count 4.06 M/uL (4.7-6.1); White Blood Count 7.95 K/uL (4.8-10.8)
[2018-09-14 12:34] LABS: INR 1.1 (0.9-1.1); Partial Thromboplastin Ratio 0.9; Partial Thromboplastin Time 23.9 Seconds (21.0-31.0); Prothrombin Time 11.5 Seconds (9.0-12.0)
[2018-09-14 12:35] LABS: iSTAT Hemoglobin 10.2 g/dl (14.0-18.0); iSTAT Ionized Calcium 1.17 mmol/l (1.12-1.32); iSTAT Potassium 4.7 mEq/L (3.3-5.0)
[2018-09-14 12:41] LABS: Albumin Level 2.6 gm/dl (3.4-5.0); BUN Creatinine Ratio 16.5 (10-20); Calcium 8.4 mg/dl (8.5-10.1); Creatinine Clr Calc Pharmacy 92.6 ml/min; Est GFR (African American) 83.5; Est GFR (Non-African American) 72.1
--- NOTE | 2018-09-14 12:43 | XRay Report ---
XR chest 1V portable CLINICAL HISTORY: Pt c/o SOB dyspnea COMPARISON STUDY: 09/07/2018 FINDINGS: Stable findings of congestive failure and/or pulmonary edema. Small bilateral pleural effus ions unchanged. Prominent pulmonary vasculature. IMPRESSION: Congestive failure unaltered from the prior exam. The above report was generated using voice recognition software. It may contain grammatical, syntax or spelling errors. Electronically signed by: Godwin Deng M.D. 09/14/2018 12:41 PM
[2018-09-14 12:50] LABS: Albumin Globulin Ratio 0.7 (0.9-2); Bilirubin,Total 0.2 mg/dl (0.2-1); Creatine Kinase MB 1.7 ng/ml (0.5-3.6); Globulin 3.6 gm/dl (2.5-4.0); Total Protein 6.2 gm/dl (6.4-8.2); Troponin I 0.089 ng/ml (0-0.045)
[2018-09-14] MEDS ORDERED: OPTIRAY 320 125ml IV PRN ×2 (13:52)
--- NOTE | 2018-09-14 14:03 | CT Scan Report ---
CT angio chest PE protocol CT DOSE: 1168.92 mGycm HISTORY: Chest pain PE TECHNIQUE: Multiaxial CT images of the chest were performed following the intravenous administration of contrast to evaluate the pulmonary arteries. Maximal intensity projection images were also obtaine d. A dose lowering technique was utilized adhering to the principles of ALARA. COMPARISON STUDY: 09/09/2018 FINDINGS: Limited study due to severe patient motion. Moderate bilateral pleural effusions slightly i ncreased from the prior study. Tortuous thoracic aorta with no focal aneurysm present. No evidence for major central pulmonary embolus. IMPRESSION: 1. No evidence for major central pulmonary embolus. 2. Bilateral pleural effusions somewhat increased in volume from the prior study. 3. Composite congestive failure mildly progressive. 4. Upper abdominal ascites. 5. Severely compromised study technically due to severe patient respiratory and somatic motion. The above report was generated using voice recognition software. It may contain grammatical, syntax or spelling errors. Electronically signed by: Godwin Deng M.D. 09/14/2018 2:02 PM
--- NOTE | 2018-09-14 14:54 | History & Physical Report ---
Date of Service September 14, 2018 Assessment & Plan (1) CHF exacerbation: Hx of lasix use that was d/c'd during [place] [facility] [place] Given lasix 40mg IV in the ED, will continue Prior dosing was 80mg PO QD Has continued with spironolactone EF 45%, will not repeat ECHO given this is likely related to medication discontinuation CXR noted for CHF Cr WNL (2) GI bleed: Hb is actually slightly improved to 9.8 with iron supplementation GIB has slowed per pt Pt declining transfusion due to Jehoviah's Witness beliefs (3) Afib: Eliquis was held on last d/c due to GIB Pt wished to continue with aspirin 81mg, will continue (4) Elevated troponin: Noted to be 0.089 on admission Trop on 08/11/18 was 0.062 Will repeat x1 and if stable, no further need for testing (5) Rectal adenocarcinoma: Was to be discussed at tumor board today Follows with Dr. Nieto if needed (6) DM type 2 (diabetes mellitus, type 2): Holding humolog, continue levemir SSI PRN A1c pending (7) Aortic stenosis: As noted above with CHF (8) Nonischemic cardiomyopathy: continue home meds (9) HLD (hyperlipidemia): continue home meds (10) HTN (hypertension): continue home meds (11) Urinary retention: continue home meds (12) Seizure: continue home meds (13) DVT prophylaxis: SCDs, holding other rx due to recent GIB (14) CVA (cerebral vascular accident): In July, [place] [facility] [place] rehab History of Present Illness Primary Care Provider: Erika Negro 68 y/o M c/o SOB. Pt states he woke around 630am today with SOB. He had no maikol chest pain, but it felt tight due to the breathing issues. He states that he had no SOB yesterday and was able to ambulate and performs his ADLs without issue. He does have increased LE swelling as well. This has been increasing for some time. He states that he was d/c'd from [facility] in July s/p a stroke. He had been on lasix 80mg PO QD prior to that admission. He was dehydrated during this time, so it was held and that hold was continued at d/c. He was sent to [facility] for rehab. He states it was while he was there he has some return of LE swelling. He has continued to take his spironolactone during this time. Pt denies fever, abd pain, n/v/c/d, LE pain. Pt states he is feeling somewhat improved s/p O2 and IV lasix in the ED. Pt was a d/c from [facility] on 09/11 after being admitted for rectal bleeding. He was found to have a mass. He is a Jehoviah's Witness and declined transfusion. He was given iron. He states that he is not passing clots or much blood now. Mainly only notes it on tissue. Per d/c summary, pt's case was to be discussed at tumor board today and Dr. Nieto was to f/u with planning. Pt has continued to have diarrhea. Family states that he was d/c'd with a stool softener scheduled due to the iron pills, but they have held this due to diarrhea. Allergies Allergy/AdvReac Type Severity Reaction Status Date / Time No Known Allergies Allergy NONE Verified 09/14/18 12:05 Home Medications Home Medications Medication Instructions Recorded Confirmed Type Complete Multi 50+ 1 tab PO QAM 08/11/18 09/14/18 History aspirin [Aspirin Low Dose] 81 mg PO QAM 08/11/18 09/14/18 History carvedilol 6.25 mg PO BID 08/11/18 09/14/18 History folic acid 400 mcg PO QAM 08/11/18 09/14/18 History spironolactone 25 mg PO QAM 08/11/18 09/14/18 History Levemir U-100 Insulin 22 unit SUBCUT QPM 09/07/18 09/14/18 History acetaminophen [Tylenol] 650 mg PO Q4 PRN 09/07/18 09/14/18 History ascorbic acid (vitamin C) [Vitamin 500 mg PO QAM 09/07/18 09/14/18 History C] hydrocortisone [Proctosol HC] 1 applic [place] BID 09/07/18 09/14/18 History insulin lispro [Humalog U-100 6 unit SUBCUT TIDM 09/07/18 09/14/18 History Insulin] levetiracetam [Keppra] 500 mg PO BID 09/07/18 09/14/18 History omega 0-eyo-jhf-fish oil [Fish Oil] 1 cap PO QAM 09/07/18 09/14/18 History omeprazole 20 mg PO QAM 09/07/18 09/14/18 History simvastatin 20 mg PO HS 09/07/18 09/14/18 History tamsulosin [Flomax] 0.4 mg PO PM 09/07/18 09/14/18 History docusate sodium 100 mg PO BID 30 Days #60 cap 09/11/18 09/14/18 Rx ferrous sulfate 325 mg PO TIDM 30 Days #30 tab 09/11/18 09/14/18 Rx Past Med/Surg History Medical History Aortic stenosis Nonischemic cardiomyopathy CVA (cerebral vascular accident) HLD (hyperlipidemia) HTN (hypertension) Urinary retention DM type 2 (diabetes mellitus, type 2) Seizure GI bleed (Acute) Anemia (Acute) Chronic anticoagulation (Acute) Afib HTN (hypertension) (Chronic) Heart disease (Chronic) Kidney disease (Chronic) Surgical History H/O aortic valve replacement H/O aortic valve replacement (Resolved) Family History Other Colon cancer Social History Preferred Language: French Beliefs That Will Affect Care: Amish Current Living Situation: Family Feels Safe at Home: Yes Smoking Status: Former smoker Hx Alcohol Use: No Hx Substance Use: No Review of Systems Pertinent positives and negatives reviewed in HPI--all others negative Physical Exam Vital Signs (Past 24 Hours): Last Vital Signs Temp 36.5 C 09/14/18 11:36 Pulse 74 09/14/18 13:01 Resp 20 09/14/18 13:01 BP 108/82 09/14/18 13:01 Pulse Ox 93 09/14/18 12:46 Constitutional: WD/WN, vitals as above Eyes: normal visual ruff by confrontation and + anicteric sclerae Neck: normal visual inspection and trachea midline Respiratory: normal respiratory effort; no respiratory distress Auscultation: + diminished lung sounds and + crackles Cardiovascular: Rate/Rhythm: regular rate and regular rhythm Gastrointestinal (Abdomen): Inspection/Auscultation: abdomen not distended Percussion/Palpation: abdomen soft; abdomen nontender Musculoskeletal: Head/Neck/Chest: normocephalic and head atraumatic 2+ pitting LE edema, peripheral pulses intact Skin: no rashes, warm and dry Neurologic: awake; not confused Speech / Cognition: normal speech Psychiatric: A+Ox3, euthymic affect Results & Data Diagnostic Findings CXR: CHF exacerbation Code Status & VTE Plan Code Status DNR/DNI per pt. Family is present and agrees VTE Prophylaxis Plan VTE Prophylaxis will be ordered: Yes (1) CHF exacerbation Heart failure type: unspecified Qualified Code(s): I50.9 - Heart failure, unspecified (2) Aortic stenosis Cardiac valve disease etiology: etiology unspecified Qualified Code(s): I35.0 - Nonrheumatic aortic (valve) stenosis (3) CVA (cerebral vascular accident) CVA mechanism: embolism Precerebral and cerebral artery: middle cerebral artery Laterality of affected vessel: left Qualified Code(s): I63.412 - C erebral infarction due to embolism of left middle cerebral artery (4) HLD (hyperlipidemia) Hyperlipidemia type: mixed hyperlipidemia Qualified Code(s): E78.2 - Mixed hyperlipidemia (5) HTN (hypertension) Hypertension type: essential hypertension Qualified Code(s): I10 - Essential (primary) hypertension (6) DM type 2 (diabetes mellitus, type 2) Diabetes mellitus detention insulin use: with termite helper use Diabetes mellitus complication status: without complication Qualified Code(s): E11.9 - Type 2 diabetes mellitus without complications; Z79.4 - residential (current) use of insulin (7) GI bleed GI bleed type/associated pathology: unspecified gastrointestinal hemorrhage type Qualified Code(s): K92.2 - Gastrointestinal hemorrhage, unspecified (8) Afib Atrial fibrillation type: chronic Qualified Code(s): I48.2 - Chronic atrial fibrillation
[2018-09-14] MEDS ORDERED: GLUCOSE 40% GEL 15 GM TUBE PO PRN (15:53)
[2018-09-14] MEDS ORDERED: GLUCAGON FOR INJ 1 MG VIAL SQ PRN (15:53)
[2018-09-14] MEDS ORDERED: MAGNESIUM HYDROXIDE SUSP 30 ML UDC PO PRN (15:53)
[2018-09-14] MEDS ORDERED: ACETAMINOPHEN 325 MG TAB PO PRN (15:53)
[2018-09-14] MEDS ORDERED: ONDANSETRON INJ 2 MG/ML 2 ML VIAL IV PRN (15:53)
[2018-09-14] MEDS ORDERED: DOCUSATE SODIUM 100 MG CAP PO PRN (15:53)
[2018-09-14] MEDS ORDERED: DEXTROSE 50% 50 ML SYRINGE IV PRN (15:53)
[2018-09-14] MEDS ORDERED: GLUCOSE 10 TABS/TUBE PO PRN (15:53)
[2018-09-14] MEDS: INSULIN ASPART 100 UNITS/ML 3 ML PEN SC SCH ×2 (17:37→20:17)
[2018-09-14] MEDS: FERROUS SULFATE 325 MG TAB PO SCH (17:37)
[2018-09-14] MEDS: ACETAMINOPHEN 325 MG TAB PO PRN (17:43)
--- NOTE | 2018-09-14 18:50 | Emergency Department Note ---
Entered by Liberty Atkins acting as a scribe for Russ Christian MD History of Present Illness General Chief complaint: Shortness of Breath/Dyspnea Stated complaint: TROUBLE BREATHING Time Seen by Provider: 09/14/18 12:00 Source: patient Mode of arrival: ambulatory Limitations: no limitations History of Present Illness Provider complaint: SOB Onset (ago): hour(s) 3 Location: chest Severity: moderate Pain Consistency: + constant Maximum Pain Intensity: 4 Associated symptoms: + denies other symptoms and + other (bilateral swelling in the legs, melena, abd pain ); no chest pain, no fever/chills and no nausea/vomiting Patient is a 68 year old male presenting to the ED with SOB beginning a few hours ago. Patient states that he awoke this morning with his SOB, which has been moderate in severity and constant since onset. He denies using oxygen at home, but includes he did use his CPAP years ago. Patient notes that he has developed mild abd pain, melena and bilateral leg swelling in relation to CC. Sister notes patient had a colonoscopy x6 days ago and was diagnosed with colorectal mass. Daughter notes patient does take iron, but was recently taken off Eliquis x4 days ago. He denies any numbness, weakness, CP, rash, fevers, or any other complaints or concerns at this time. Home Medications Home Medications Medication Instructions Recorded Confirmed Type Complete Multi 50+ 1 tab PO QAM 08/11/18 09/14/18 History aspirin [Aspirin Low Dose] 81 mg PO QAM 08/11/18 09/14/18 History carvedilol 6.25 mg PO BID 08/11/18 09/14/18 History folic acid 400 mcg PO QAM 08/11/18 09/14/18 History spironolactone 25 mg PO QAM 08/11/18 09/14/18 History Levemir U-100 Insulin 22 unit SUBCUT QPM 09/07/18 09/14/18 History acetaminophen [Tylenol] 650 mg PO Q4 PRN 09/07/18 09/14/18 History ascorbic acid (vitamin C) [Vitamin 500 mg PO QAM 09/07/18 09/14/18 History C] hydrocortisone [Proctosol HC] 1 applic SC BID 09/07/18 09/14/18 History insulin lispro [Humalog U-100 6 unit SUBCUT TIDM 09/07/18 09/14/18 History Insulin] levetiracetam [Keppra] 500 mg PO BID 09/07/18 09/14/18 History omega 3-ldm-mow-fish oil [Fish Oil] 1 cap PO QAM 09/07/18 09/14/18 History omeprazole 20 mg PO QAM 09/07/18 09/14/18 History simvastatin 20 mg PO HS 09/07/18 09/14/18 History tamsulosin [Flomax] 0.4 mg PO PM 09/07/18 09/14/18 History docusate sodium 100 mg PO BID 30 Days #60 cap 09/11/18 09/14/18 Rx ferrous sulfate 325 mg PO TIDM 30 Days #30 tab 09/11/18 09/14/18 Rx Allergies Allergy/AdvReac Type Severity Reaction Status Date / Time No Known Allergies Allergy NONE Verified 09/14/18 12:05 Past Med/Surg History Medical History Aortic stenosis Nonischemic cardiomyopathy CVA (cerebral vascular accident) HLD (hyperlipidemia) HTN (hypertension) Urinary retention DM type 2 (diabetes mellitus, type 2) Seizure GI bleed (Acute) Anemia (Acute) Chronic anticoagulation (Acute) Afib HTN (hypertension) (Chronic) Heart disease (Chronic) Kidney disease (Chronic) Surgical History H/O aortic valve replacement H/O aortic valve replacement (Resolved) Family History Other Colon cancer Social History Preferred Language: Kyrgyz Communication Ability: Effective 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 and A total of 10 systems reviewed and were otherwise negative Physical Exam Vital Signs Vital Signs - 24 hr 09/14/18 11:36 09/14/18 11:52 09/14/18 12:00 Temperature 36.5 C Temperature Source Oral Sepsis Recent Fever Within 48 Hours No Sepsis New/Unexplained Change in Mental Status No Sepsis Action Taken by Nursing No Action Required Pulse Rate 81 71 72 Pulse Rate [Apical] Pulse Rate from SpO2 Sensor 72 74 Respiratory Rate 26 H 21 25 H Respiratory Effort / Characteristics Respiratory Depth Shallow Respiratory Pattern Blood Pressure 129/83 118/90 Blood Pressure [Left Arm] Blood Pressure Mean 98 99 Blood Pressure Mean [Left Arm] Blood Pressure Position [Left Arm] Pulse Oximetry 82 L 98 98 Oxygen Delivery Method Room Air Nasal Cannula Oxygen Flow Rate 0 09/14/18 12:01 09/14/18 12:08 09/14/18 12:15 Temperature Temperature Source Sepsis Recent Fever Within 48 Hours Sepsis New/Unexplained Change in Mental Status Sepsis Action Taken by Nursing Pulse Rate 77 76 Pulse Rate [Apical] Pulse Rate from SpO2 Sensor 76 76 Respiratory Rate 25 H 25 H Respiratory Effort / Characteristics Respiratory Depth Respiratory Pattern Blood Pressure 120/94 Blood Pressure [Left Arm] Blood Pressure Mean 102 Blood Pressure Mean [Left Arm] Blood Pressure Position [Left Arm] Pulse Oximetry 100 98 98 Oxygen Delivery Method Nasal Cannula Oxygen Flow Rate 2 09/14/18 12:16 09/14/18 12:26 09/14/18 12:30 Temperature Temperature Source Sepsis Recent Fever Within 48 Hours Sepsis New/Unexplained Change in Mental Status Sepsis Action Taken by Nursing Pulse Rate 71 75 Pulse Rate [Apical] 74 Pulse Rate from SpO2 Sensor 71 75 Respiratory Rate 25 H 18 15 Respiratory Effort / Characteristics Non-Labored Spontaneous Respiratory Depth Respiratory Pattern Blood Pressure 128/80 Blood Pressure [Left Arm] Blood Pressure Mean 96 Blood Pressure Mean [Left Arm] Blood Pressure Position [Left Arm] Pulse Oximetry 94 99 95 Oxygen Delivery Method Nasal Cannula Oxygen Flow Rate 2.5 09/14/18 12:31 09/14/18 12:45 09/14/18 12:46 Temperature Temperature Source Sepsis Recent Fever Within 48 Hours Sepsis New/Unexplained Change in Mental Status Sepsis Action Taken by Nursing Pulse Rate 68 67 69 Pulse Rate [Apical] Pulse Rate from SpO2 Sensor 65 73 80 Respiratory Rate 25 H 25 H 21 Respiratory Effort / Characteristics Respiratory Depth Respiratory Pattern Blood Pressure 113/61 134/77 Blood Pressure [Left Arm] Blood Pressure Mean 78 96 Blood Pressure Mean [Left Arm] Blood Pressure Position [Left Arm] Pulse Oximetry 100 95 93 Oxygen Delivery Method Oxygen Flow Rate 09/14/18 13:00 09/14/18 13:01 09/14/18 13:02 Temperature Temperature Source Sepsis Recent Fever Within 48 Hours Sepsis New/Unexplained Change in Mental Status Sepsis Action Taken by Nursing Pulse Rate 62 74 72 Pulse Rate [Apical] Pulse Rate from SpO2 Sensor 85 Respiratory Rate 20 20 20 Respiratory Effort / Characteristics Respiratory Depth Respiratory Pattern Blood Pressure 108/82 Blood Pressure [Left Arm] Blood Pressure Mean 90 Blood Pressure Mean [Left Arm] Blood Pressure Position [Left Arm] Pulse Oximetry 92 Oxygen Delivery Method Oxygen Flow Rate 09/14/18 13:10 09/14/18 13:41 09/14/18 13:46 Temperature Temperature Source Sepsis Recent Fever Within 48 Hours Sepsis New/Unexplained Change in Mental Status Sepsis Action Taken by Nursing Pulse Rate 66 83 88 Pulse Rate [Apical] Pulse Rate from SpO2 Sensor 78 91 H 82 Respiratory Rate 22 29 H 22 Respiratory Effort / Characteristics Respiratory Depth Respiratory Pattern Blood Pressure 121/83 Blood Pressure [Left Arm] Blood Pressure Mean 95 Blood Pressure Mean [Left Arm] Blood Pressure Position [Left Arm] Pulse Oximetry 98 98 Oxygen Delivery Method Oxygen Flow Rate 09/14/18 13:50 09/14/18 14:00 09/14/18 14:01 Temperature Temperature Source Sepsis Recent Fever Within 48 Hours Sepsis New/Unexplained Change in Mental Status Sepsis Action Taken by Nursing Pulse Rate 76 66 75 Pulse Rate [Apical] Pulse Rate from SpO2 Sensor 79 76 78 Respiratory Rate 18 20 22 Respiratory Effort / Characteristics Respiratory Depth Respiratory Pattern Blood Pressure 133/68 Blood Pressure [Left Arm] Blood Pressure Mean 89 Blood Pressure Mean [Left Arm] Blood Pressure Position [Left Arm] Pulse Oximetry 95 90 95 Oxygen Delivery Method Oxygen Flow Rate 09/14/18 14:10 09/14/18 14:16 09/14/18 14:20 Temperature Temperature Source Sepsis Recent Fever Within 48 Hours Sepsis New/Unexplained Change in Mental Status Sepsis Action Taken by Nursing Pulse Rate 85 73 Pulse Rate [Apical] Pulse Rate from SpO2 Sensor 83 86 76 Respiratory Rate 24 16 Respiratory Effort / Characteristics Respiratory Depth Respiratory Pattern Blood Pressure 146/102 H Blood Pressure [Left Arm] Blood Pressure Mean 116 Blood Pressure Mean [Left Arm] Blood Pressure Position [Left Arm] Pulse Oximetry 95 83 L 75 L Oxygen Delivery Method Oxygen Flow Rate 09/14/18 14:30 09/14/18 14:32 09/14/18 14:40 Temperature Temperature Source Sepsis Recent Fever Within 48 Hours Sepsis New/Unexplained Change in Mental Status Sepsis Action Taken by Nursing Pulse Rate 74 66 81 Pulse Rate [Apical] Pulse Rate from SpO2 Sensor 82 78 92 H Respiratory Rate 21 19 15 Respiratory Effort / Characteristics Respiratory Depth Respiratory Pattern Blood Pressure 115/76 Blood Pressure [Left Arm] Blood Pressure Mean 89 Blood Pressure Mean [Left Arm] Blood Pressure Position [Left Arm] Pulse Oximetry 96 74 L 79 L Oxygen Delivery Method Oxygen Flow Rate 09/14/18 14:46 09/14/18 14:50 09/14/18 15:00 Temperature Temperature Source Sepsis Recent Fever Within 48 Hours Sepsis New/Unexplained Change in Mental Status Sepsis Action Taken by Nursing Pulse Rate 60 64 70 Pulse Rate [Apical] Pulse Rate from SpO2 Sensor 78 79 76 Respiratory Rate 23 19 24 Respiratory Effort / Characteristics Respiratory Depth Respiratory Pattern Blood Pressure 115/76 Blood Pressure [Left Arm] Blood Pressure Mean 89 Blood Pressure Mean [Left Arm] Blood Pressure Position [Left Arm] Pulse Oximetry 96 95 91 Oxygen Delivery Method Oxygen Flow Rate 09/14/18 15:02 09/14/18 15:10 09/14/18 15:14 Temperature Temperature Source Sepsis Recent Fever Within 48 Hours Sepsis New/Unexplained Change in Mental Status Sepsis Action Taken by Nursing Pulse Rate 70 73 Pulse Rate [Apical] Pulse Rate from SpO2 Sensor 75 68 Respiratory Rate 21 18 Respiratory Effort / Characteristics Spontaneous Short of Breath SOB on Exertion Respiratory Depth Normal Respiratory Pattern Regular Blood Pressure 113/60 Blood Pressure [Left Arm] Blood Pressure Mean 77 Blood Pressure Mean [Left Arm] Blood Pressure Position [Left Arm] Pulse Oximetry 97 91 Oxygen Delivery Method Nasal Cannula Oxygen Flow Rate 2.5 09/14/18 15:16 09/14/18 15:53 09/14/18 15:55 Temperature 36.5 C Temperature Source Oral Sepsis Recent Fever Within 48 Hours Sepsis New/Unexplained Change in Mental Status Sepsis Action Taken by Nursing Pulse Rate 72 Pulse Rate [Apical] 85 Pulse Rate from SpO2 Sensor 78 Respiratory Rate 19 20 Respiratory Effort / Characteristics Non-Labored Spontaneous Respiratory Depth Normal Respiratory Pattern Blood Pressure 106/66 Blood Pressure [Left Arm] 116/82 Blood Pressure Mean 79 Blood Pressure Mean [Left Arm] 93 Blood Pressure Position [Left Arm] Sitting Pulse Oximetry 91 94 Oxygen Delivery Method Room Air Nasal Cannula Oxygen Flow Rate 2 09/14/18 16:00 09/14/18 16:07 Temperature Temperature Source Sepsis Recent Fever Within 48 Hours Sepsis New/Unexplained Change in Mental Status Sepsis Action Taken by Nursing Pulse Rate 69 Pulse Rate [Apical] Pulse Rate from SpO2 Sensor Respiratory Rate Respiratory Effort / Characteristics Non-Labored Spontaneous SOB on Exertion Respiratory Depth Normal Respiratory Pattern Regular Blood Pressure Blood Pressure [Left Arm] Blood Pressure Mean Blood Pressure Mean [Left Arm] Blood Pressure Position [Left Arm] Pulse Oximetry Oxygen Delivery Method Room Air Oxygen Flow Rate GENERAL: Patient is a healthy-appearing well-nourished HEAD: Normocephalic atraumatic EYES: Ocular movements intact pupils equal and react to light OROPHARYNX mucous membranes are moist no exudates present no erythema or edema present NECK: Supple no nuchal rigidity CHEST: Good equal expansion LUNGS: Diminished breath sounds bilaterally. CARDIAC: Normal S1 and S2 ABDOMEN: Soft nontender no guarding BACK: No CVA tenderness EXTREMITIES: No pain upon palpation normal muscle strength in all groups no clubbing or cyanosis. 2+ pitting edema to bilateral lower legs. NEURO: Patient is following commands is answering questions appropriately. Alert and oriented x3 Cranial Nerves 2-12 grossly intact Course 1203: Past medical records reviewed. The patient was evaluated in room A10, and a complete history and physical examination were performed. 1412: Discussed case with Dr. Camargo, who accepts patient for admission. Administered Medications Acetaminophen (Tylenol) 650 mg PO Q4H PRN PRN Reason: Fever Or Pain Stop: 10/14/18 15:52 Last Admin: 09/14/18 17:43 Dose: 650 mg Documented by: [id number] Ferrous Sulfate (Feosol) 325 mg PO TIDM [facility] Stop: 10/14/18 16:59 Last Admin: 09/14/18 17:37 Dose: 325 mg Documented by: [id number] Insulin Aspart (Novolog Flexpen) 0 units SC ACHS [facility] Stop: 10/14/18 16:29 Last Admin: 09/14/18 17:37 Dose: 8 units Documented by: [id number] Cosigned by: [id number] Ioversol (Optiray 320 125ml) 95 ml IV ONCE PRN PRN Reason: Interaction Checking Stop: 09/18/18 13:51 Last Admin: 09/14/18 13:52 Dose: 95 ml Documented by: [id number] Ioversol (Optiray 320 125ml) 95 ml IV ONCE PRN PRN Reason: Interaction Checking Stop: 09/18/18 13:51 Last Admin: 09/14/18 13:54 Dose: 95 ml Documented by: [id number] Discontinued Medications Furosemide (Lasix) 40 mg IV NOW STA Stop: 09/14/18 12:22 Last Admin: 09/14/18 12:27 Dose: 40 mg Documented by: [id number] Levalbuterol HCl (Xopenex 1.25mg/0.5ml Neb) 1.25 mg NEB NOW STA Stop: 09/14/18 12:08 Last Admin: 09/14/18 12:26 Dose: 1.25 mg Documented by: [id number] Medical Decision Making Differential Diagnosis Differential diagnosis: Etiologies such as infections, reactive airway disease, pneumonia, pneumothorax, COPD, CHF, cardiac ischemia, pulmonary embolism, musculoskeletal, gastrointestinal, as well as others were entertained. Medical Records Attestation: I reviewed the patient's medical records. Home Medications Current Medication List: was personally reviewed by me Laboratory Data Attestation: I reviewed the patient's lab results. Result diagrams: 09/14/18 12:05 09/14/18 12:05 Lab Results 09/14/18 09/14/18 09/14/18 Range/Units 12:05 12:05 12:05 WBC 7.95 (4.8-10.8) K/uL RBC 4.06 L (4.7-6.1) M/uL Hgb 9.8 L (14.0-18.0) g/dL POC Hgb (14.0-18.0) g/dl Hct 33.2 L (42-52) % POC Hct (42-52) % MCV 81.8 (80-100) fL MCH 24.1 L (25-34) pg MCHC 29.5 L (32-36) g/dL RDW Std Deviation 46.9 H (36.4-46.3) fL RDW Coeff of Amandeep 15.7 H (11.5-14.5) % Plt Count 218 (130-400) K/uL MPV 10.4 (7.4-10.4) fL Immature Gran % (Auto) 0.3 % Neut % (Auto) 62.3 % Lymph % (Auto) 22.9 % Lipscomb % (Auto) 9.3 % Eos % (Auto) 4.8 % Baso % (Auto) 0.4 % Immature Gran # (Auto) 0.02 (0.00-0.02) K/uL Neut # (Auto) 4.96 (1.4-6.5) K/uL Lymph # (Auto) 1.82 (1.2-3.4) K/uL Lipscomb # (Auto) 0.74 H (0.11-0.59) K/uL Eos # (Auto) 0.38 (0-0.5) K/uL Baso # (Auto) 0.03 (0-0.2) K/uL Absolute Nucleated RBC 0.02 H (0-0) K/uL Nucleated RBC % (auto) 0.2 % PT 11.5 (9.0-12.0) Seconds INR 1.1 (0.9-1.1) APTT 23.9 (21.0-31.0) Seconds PTT Ratio 0.9 POC Sodium (135-144) mEq/L Sodium 140 (136-145) mmol/L POC Potassium (3.3-5.0) mEq/L Potassium 4.0 (3.5-5.1) mmol/L POC Chloride (101-112) mEq/L Chloride 107 (98-107) mmol/L Carbon Dioxide 29 (21-32) mmol/L POC Total CO2 (24-31) mEq/l Anion Gap 4.0 (3-11) POC Anion Gap (16-25) mmol/L POC BUN (7-18) mg/dl BUN 17 (7-18) mg/dl Creatinine 1.05 (0.6-1.4) mg/dl POC Creatinine (0.6-1.3) mg/dl Est Cr Clr Drug Dosing 92.6 ml/min Est GFR ( Amer) 83.5 Est GFR (Non-Af Amer) 72.1 BUN/Creatinine Ratio 16.5 (10-20) Glucose 145 H (70-99) mg/dl POC Glucose (70-99) POC Glucose (other) (70-99) mg/dl Calcium 8.4 L (8.5-10.1) mg/dl POC Ioniz Calcium Maisha (1.12-1.32) mmol/l Total Bilirubin 0.2 (0.2-1) mg/dl AST 16 (15-37) U/L ALT 14 (12-78) U/L Alkaline Phosphatase 79 (45-117) U/L Total Creatine Kinase 44 (39-308) U/L CK-MB (CK-2) 1.7 (0.5-3.6) ng/ml CK/CKMB % Calc 3.9 H (0-3.0) Troponin I 0.089 H* (0-0.045) ng/ml NT-Pro-B Natriuret Pep 3984 H (0-900) pg/ml Total Protein 6.2 L (6.4-8.2) gm/dl Albumin 2.6 L (3.4-5.0) gm/dl Globulin 3.6 (2.5-4.0) gm/dl Albumin/Globulin Ratio 0.7 L (0.9-2) 09/14/18 09/14/18 Range/Units 12:22 16:37 WBC (4.8-10.8) K/uL RBC (4.7-6.1) M/uL Hgb (14.0-18.0) g/dL POC Hgb 10.2 L (14.0-18.0) g/dl Hct (42-52) % POC Hct 30 L (42-52) % MCV (80-100) fL MCH (25-34) pg MCHC (32-36) g/dL RDW Std Deviation (36.4-46.3) fL RDW Coeff of Amandeep (11.5-14.5) % Plt Count (130-400) K/uL MPV (7.4-10.4) fL Immature Gran % (Auto) % Neut % (Auto) % Lymph % (Auto) % Lipscomb % (Auto) % Eos % (Auto) % Baso % (Auto) % Immature Gran # (Auto) (0.00-0.02) K/uL Neut # (Auto) (1.4-6.5) K/uL Lymph # (Auto) (1.2-3.4) K/uL Lipscomb # (Auto) (0.11-0.59) K/uL Eos # (Auto) (0-0.5) K/uL Baso # (Auto) (0-0.2) K/uL Absolute Nucleated RBC (0-0) K/uL Nucleated RBC % (auto) % PT (9.0-12.0) Seconds INR (0.9-1.1) APTT (21.0-31.0) Seconds PTT Ratio POC Sodium 139 (135-144) mEq/L Sodium (136-145) mmol/L POC Potassium 4.7 (3.3-5.0) mEq/L Potassium (3.5-5.1) mmol/L POC Chloride 100 L (101-112) mEq/L Chloride (98-107) mmol/L Carbon Dioxide (21-32) mmol/L POC Total CO2 28 (24-31) mEq/l Anion Gap (3-11) POC Anion Gap 17.0 (16-25) mmol/L POC BUN 20 H (7-18) mg/dl BUN (7-18) mg/dl Creatinine (0.6-1.4) mg/dl POC Creatinine 1.0 (0.6-1.3) mg/dl Est Cr Clr Drug Dosing ml/min Est GFR ( Amer) Est GFR (Non-Af Amer) BUN/Creatinine Ratio (10-20) Glucose (70-99) mg/dl POC Glucose 125 H (70-99) POC Glucose (other) 144 H (70-99) mg/dl Calcium (8.5-10.1) mg/dl POC Ioniz Calcium Maisha 1.17 (1.12-1.32) mmol/l Total Bilirubin (0.2-1) mg/dl AST (15-37) U/L ALT (12-78) U/L Alkaline Phosphatase (45-117) U/L Total Creatine Kinase (39-308) U/L CK-MB (CK-2) (0.5-3.6) ng/ml CK/CKMB % Calc (0-3.0) Troponin I (0-0.045) ng/ml NT-Pro-B Natriuret Pep (0-900) pg/ml Total Protein (6.4-8.2) gm/dl Albumin (3.4-5.0) gm/dl Globulin (2.5-4.0) gm/dl Albumin/Globulin Ratio (0.9-2) Imaging Data Radiologist's Impression: CT angio chest PE protocol CT DOSE: 1168.92 mGycm HISTORY: Chest pain PE TECHNIQUE: Multiaxial CT images of the chest were performed following the intravenous administration of contrast to evaluate the pulmonary arteries. Maximal intensity projection images were also obtained. A dose lowering technique was utilized adhering to the principles of ALARA. COMPARISON STUDY: 09/09/2018 FINDINGS: Limited study due to severe patient motion. Moderate bilateral pleural effusions slightly increased from the prior study. Tortuous thoracic aorta with no focal aneurysm present. No evidence for major central pulmonary embolus. IMPRESSION: 1. No evidence for major central pulmonary embolus. 2. Bilateral pleural effusions somewhat increased in volume from the prior study. 3. Composite congestive failure mildly progressive. 4. Upper abdominal ascites. 5. Severely compromised study technically due to severe patient respiratory and somatic motion. The above report was generated using voice recognition software. It may contain grammatical, syntax or spelling errors. Electronically signed by: Godwin Deng M.D. 09/14/2018 2:02 PM XR chest 1V portable CLINICAL HISTORY: Pt c/o SOB dyspnea COMPARISON STUDY: 09/07/2018 FINDINGS: Stable findings of congestive failure and/or pulmonary edema. Small bilateral pleural effusions unchanged. Prominent pulmonary vasculature. IMPRESSION: Congestive failure unaltered from the prior exam. The above report was generated using voice recognition software. It may contain grammatical, syntax or spelling errors. Electronically signed by: Godwin Deng M.D. 09/14/2018 12:41 PM ECG Data Attestation: I personally reviewed and interpreted this ECG as follows: Indication: SOB/dyspnea Rate (beats per minute): 82 Rhythm: normal sinus Findings: + PVC; no ST depression and no ST elevation Blood Pressure Blood Pressure Findings: Normal blood pressure Blood Pressure Disposition: further management by hospitalist MDM Narrative This is a 68-year-old male who presents emergency department complaining of hypoxia and oxygen requirement. The patient is not normally on oxygen. He was recently admitted for a rectal adenocarcinoma. The patient is not on Lasix at home. His chest x-ray is concerning for congestive heart failure. In addition he has an elevation in his troponin as well as BNP. I did discuss the case with the hospitalist service. Patient was given Lasix here in the emergency department. Repeat examination revealed improvement in the patient's symptoms. Impression & Plan CHF exacerbation Discharge Plan Visit Data *Final* Discharge Date/Time: 09/14/18 15:55 Chief Complaint: Shortness of Breath/Dyspnea Stated Complaint: TROUBLE BREATHING ED Provider: Russ Christian Discharge Problem: CHF exacerbation Patient Disposition: Admitted As Inpatient Discharge Instructions Interventions: ED Discharge Assessment Last Done: 09/14/18 15:55 Discharge Problem: CHF exacerbation Qualifiers: Heart failure type: unspecified Qualified Code(s): I50.9 - Heart failure, unspecified The scribe's documentation has been prepared under my direction and personally reviewed by me in its entirety. I confirm that the note above accurately reflects all work, treatment, procedures, and medical decision making performed by me.
[2018-09-14] MEDS: HYDROCORTISONE HC 2.5% CRM 30GM TUBE EXT SCH (20:15)
[2018-09-14] MEDS: TAMSULOSIN HCL 0.4 MG CAP PO SCH (20:16)
[2018-09-14] MEDS: SIMVASTATIN 20 MG TAB PO SCH (20:16)
[2018-09-14] MEDS: levETIRAcetam 500 MG TAB PO SCH (20:16)
[2018-09-14] MEDS: CARVEDILOL 6.25 MG TAB PO SCH (20:18)
[2018-09-14] MEDS ORDERED: INSULIN DETEMIR FLEXPEN/FLEX TOUCH 100 UNITS/ML 3ML SQ SCH (21:00)
[2018-09-15 02:25] LABS: Calcium 8.1 mg/dl (8.5-10.1); Creatinine Clr Calc Pharmacy 87.6 ml/min; Est GFR (African American) 78.1; Est GFR (Non-African American) 67.4; Potassium 3.8 mmol/L (3.5-5.1)
[2018-09-15 02:38] LABS: Troponin I 0.131 ng/ml (0-0.045)
[2018-09-15] MEDS: ACETAMINOPHEN 325 MG TAB PO PRN ×2 (04:35→11:30)
[2018-09-15] MEDS: INSULIN ASPART 100 UNITS/ML 3 ML PEN SC SCH ×4 (08:16→21:43)
[2018-09-15] MEDS: CARVEDILOL 6.25 MG TAB PO SCH ×2 (08:18→21:41)
[2018-09-15] MEDS: CEROVITE ADV FORMULA TAB PO SCH (08:18)
[2018-09-15] MEDS: FERROUS SULFATE 325 MG TAB PO SCH ×3 (08:18→18:14)
[2018-09-15] MEDS: OMEGA-3 (PURIFIED FISH OIL) 1 GM CAP PO SCH (08:19)
[2018-09-15] MEDS: PANTOprazole 40 MG TAB PO SCH (08:19)
[2018-09-15] MEDS: levETIRAcetam 500 MG TAB PO SCH ×2 (08:19→21:41)
[2018-09-15] MEDS: FOLIC ACID 400 MCG TAB PO SCH (08:19)
[2018-09-15] MEDS: ASPIRIN 81 MG ECTAB PO SCH (08:20)
[2018-09-15] MEDS: ASCORBIC ACID 500 MG TAB PO SCH (08:20)
[2018-09-15] MEDS: HYDROCORTISONE HC 2.5% CRM 30GM TUBE EXT SCH ×2 (08:20→21:43)
[2018-09-15] MEDS: SPIRONOLACTONE 25 MG TAB PO SCH (08:20)
[2018-09-15 08:44] LABS: Basophils # (auto) 0.02 K/uL (0-0.2); Basophils % (auto) 0.2 %; Eosinophils # (auto) 0.44 K/uL (0-0.5); Eosinophils % (auto) 5.2 %; Hemoglobin 9.2 g/dL (14.0-18.0); Immature Granulocytes # (auto) 0.04 K/uL (0.00-0.02); Immature Granulocytes % (auto) 0.5 %; Lymphocytes # (auto) 2.13 K/uL (1.2-3.4); Lymphocytes % (auto) 25.2 %; Mean Corpuscular Hgb Conc 28.8 g/dL (32-36); Mean Corpuscular Volume 82.5 fL (80-100); Mean Platelet Volume 10.2 fL (7.4-10.4); Monocytes # (auto) 0.83 K/uL (0.11-0.59); Monocytes % (auto) 9.8 %; Neutrophils # (auto) 4.99 K/uL (1.4-6.5); Neutrophils % (auto) 59.1 %; Platelet Count 243 K/uL (130-400); RDW Standard Deviation 47.8 fL (36.4-46.3); Red Blood Count 3.88 M/uL (4.7-6.1); White Blood Count 8.45 K/uL (4.8-10.8)
[2018-09-15] MEDS ORDERED: FUROSEMIDE 40 MG in SYRINGE 0 ML IV SCH (09:00)
--- NOTE | 2018-09-15 12:11 | Hospitalist Progress Note ---
Date of Service September 15, 2018 Assessment & Plan (1) CHF exacerbation: Acute on Chronic systolic CHF Hx of lasix use that was d/c'd during admission to [facility] for CVA Will increase lasix to 40 mg bid Prior dosing was 80mg PO QD Has continued with spironolactone Last echo 2011 showing Type I DD and EF 45%, will defer on repeating echo to cardiology if they feel it is necessary CXR noted for CHF Cr WNL (2) GI bleed: Hb is actually slightly with iron supplementation GIB has slowed per pt Pt declining transfusion due to Jehoviah's Witness beliefs (3) Afib: Eliquis was held on last d/c due to GIB Pt wished to continue with aspirin 81mg, will continue Continue home Coreg Patient has been A.fib but did have an episode of asymptomatic Torsades over the night - cardiology aware (4) Elevated troponin: Likely demand ischemia Troponin peaked at 0.131 and trended down Asymptomatic Cardiology consulted (5) Rectal adenocarcinoma: Follows with Dr. Nieto - unable to lay flat for initial imaging for XRT due to sob. Will try again when patient has diuresed more. (6) DM type 2 (diabetes mellitus, type 2): Continue SSI, levemir (7) Aortic stenosis: As noted above with CHF (8) Nonischemic cardiomyopathy: continue home carvedilol, spironolactone (9) HLD (hyperlipidemia): continue home simvastatin (10) HTN (hypertension): as above (11) Urinary retention: continue home tamsulosin (12) Seizure: continue home Keppra (13) DVT prophylaxis: SCDs, holding other rx due to recent GIB (14) CVA (cerebral vascular accident): In July, at [facility] Completed rehab Continue statin, ASA (15) CKD (chronic kidney disease) stage 2, GFR 60-89 ml/min: Subjective Ms. Price is feeling sob. He was unable to lay flat for imaging this morning. No chest pain or palpitations. He did have some Torsades on the monitor overnight but was not aware of it. Review of Systems All systems reviewed & are unremarkable except as noted in HPI & below Physical Exam Vital Signs (Past 24 Hours): Last Vital Signs Temp 36.8 C 09/15/18 11:26 Pulse 76 09/15/18 11:26 Resp 18 09/15/18 11:26 BP 96/62 L 09/15/18 11:26 Pulse Ox 91 09/15/18 11:26 Physical Exam: General: no distress Eyes: normal inspection, PERLL Respiratory: chest non tender, clear to auscultation, normal breath sounds, no respiratory distress, no accessory muscle use Cardiac: regular rate and rhythm, no rub or gallop, no murmur, +2 pitting LE GI/: active bowel sounds, no abd pain or tenderness, soft, non distended Extremities: normal range of motion, normal strength, non tender Neuro/Psych: alert and oriented x 3, normal mood and affect Skin: normal color, dry Results & Data Laboratory Results Abnormal lab results 09/14/18 09/14/18 09/14/18 Range/Units 12:05 12:05 12:22 RBC 4.06 L (4.7-6.1) M/uL Hgb 9.8 L (14.0-18.0) g/dL POC Hgb 10.2 L (14.0-18.0) g/dl Hct 33.2 L (42-52) % POC Hct 30 L (42-52) % MCH 24.1 L (25-34) pg MCHC 29.5 L (32-36) g/dL RDW Std Deviation 46.9 H (36.4-46.3) fL RDW Coeff of Amandeep 15.7 H (11.5-14.5) % Immature Gran # (Auto) (0.00-0.02) K/uL Coryell # (Auto) 0.74 H (0.11-0.59) K/uL Absolute Nucleated RBC 0.02 H (0-0) K/uL POC Chloride 100 L (101-112) mEq/L POC BUN 20 H (7-18) mg/dl Glucose 145 H (70-99) mg/dl POC Glucose (70-99) POC Glucose (other) 144 H (70-99) mg/dl Calcium 8.4 L (8.5-10.1) mg/dl CK/CKMB % Calc 3.9 H (0-3.0) Troponin I 0.089 H* (0-0.045) ng/ml NT-Pro-B Natriuret Pep 3984 H (0-900) pg/ml Total Protein 6.2 L (6.4-8.2) gm/dl Albumin 2.6 L (3.4-5.0) gm/dl Albumin/Globulin Ratio 0.7 L (0.9-2) 09/14/18 09/14/18 09/14/18 Range/Units 16:37 19:47 20:10 RBC (4.7-6.1) M/uL Hgb (14.0-18.0) g/dL POC Hgb (14.0-18.0) g/dl Hct (42-52) % POC Hct (42-52) % MCH (25-34) pg MCHC (32-36) g/dL RDW Std Deviation (36.4-46.3) fL RDW Coeff of Amandeep (11.5-14.5) % Immature Gran # (Auto) (0.00-0.02) K/uL Coryell # (Auto) (0.11-0.59) K/uL Absolute Nucleated RBC (0-0) K/uL POC Chloride (101-112) mEq/L POC BUN (7-18) mg/dl Glucose (70-99) mg/dl POC Glucose 125 H 146 H (70-99) POC Glucose (other) (70-99) mg/dl Calcium (8.5-10.1) mg/dl CK/CKMB % Calc (0-3.0) Troponin I 0.091 H* (0-0.045) ng/ml NT-Pro-B Natriuret Pep (0-900) pg/ml Total Protein (6.4-8.2) gm/dl Albumin (3.4-5.0) gm/dl Albumin/Globulin Ratio (0.9-2) 09/15/18 09/15/18 09/15/18 Range/Units 01:55 07:53 07:53 RBC 3.88 L (4.7-6.1) M/uL Hgb 9.2 L (14.0-18.0) g/dL POC Hgb (14.0-18.0) g/dl Hct 32.0 L (42-52) % POC Hct (42-52) % MCH 23.7 L (25-34) pg MCHC 28.8 L (32-36) g/dL RDW Std Deviation 47.8 H (36.4-46.3) fL RDW Coeff of Amandeep 16.0 H (11.5-14.5) % Immature Gran # (Auto) 0.04 H (0.00-0.02) K/uL Coryell # (Auto) 0.83 H (0.11-0.59) K/uL Absolute Nucleated RBC (0-0) K/uL POC Chloride (101-112) mEq/L POC BUN (7-18) mg/dl Glucose (70-99) mg/dl POC Glucose (70-99) POC Glucose (other) (70-99) mg/dl Calcium 8.1 L (8.5-10.1) mg/dl CK/CKMB % Calc (0-3.0) Troponin I 0.131 H* 0.102 H* (0-0.045) ng/ml NT-Pro-B Natriuret Pep (0-900) pg/ml Total Protein (6.4-8.2) gm/dl Albumin (3.4-5.0) gm/dl Albumin/Globulin Ratio (0.9-2) (1) CHF exacerbation Heart failure type: unspecified Qualified Code(s): I50.9 - Heart failure, unspecified (2) GI bleed GI bleed type/associated pathology: unspecified gastrointestinal hemorrhage type Qualified Code(s): K92.2 - Gastrointestinal hemorrhage, unspecified (3) Afib Atrial fibrillation type: chronic Qualified Code(s): I48.2 - Chronic atrial fibrillation (4) DM type 2 (diabetes mellitus, type 2) Diabetes mellitus terminal carman insulin use: with terminal carman use Diabetes mellitus complication status: without complication Qualified Code(s): E11.9 - Type 2 diabetes mellitus without complications; Z79.4 - termite control technician (current) use of insulin (5) Aortic stenosis Cardiac valve disease etiology: etiology unspecified Qualified Code(s): I35.0 - Nonrheumatic aortic (valve) stenosis (6) HLD (hyperlipidemia) Hyperlipidemia type: mixed hyperlipidemia Qualified Code(s): E78.2 - Mixed hyperlipidemia (7) HTN (hypertension) Hypertension type: essential hypertension Qualified Code(s): I10 - Essential (primary) hypertension (8) CVA (cerebral vascular accident) CVA mechanism: embolism Precerebral and cerebral artery: middle cerebral artery Laterality of affected vessel: left Qualified Code(s): I63.412 - Cerebral infarction due to embolism of left middle cerebral artery
[2018-09-15] MEDS ORDERED: POTASSIUM CHLORIDE 20 MEQ TABCR PO STA ×2 (15:18→15:20)
[2018-09-15] MEDS ORDERED: MAGNESIUM SULFATE / D5W 1 GM/100 ML BAG IV ONE (15:30)
[2018-09-15] MEDS: FUROSEMIDE 40 MG in SYRINGE 0 ML IV SCH (18:15)
[2018-09-15] MEDS: SIMVASTATIN 20 MG TAB PO SCH (21:41)
[2018-09-15] MEDS: TAMSULOSIN HCL 0.4 MG CAP PO SCH (21:41)
[2018-09-15] MEDS: INSULIN DETEMIR FLEXPEN/FLEX TOUCH 100 UNITS/ML 3ML SQ SCH (21:41)
[2018-09-16] MEDS: ACETAMINOPHEN 325 MG TAB PO PRN ×2 (01:07→22:19)
[2018-09-16] MEDS: CEROVITE ADV FORMULA TAB PO SCH (08:19)
[2018-09-16] MEDS: OMEGA-3 (PURIFIED FISH OIL) 1 GM CAP PO SCH (08:19)
[2018-09-16] MEDS: FUROSEMIDE 40 MG in SYRINGE 0 ML IV SCH ×2 (08:19→17:21)
[2018-09-16] MEDS: levETIRAcetam 500 MG TAB PO SCH ×2 (08:19→21:04)
[2018-09-16] MEDS: ASCORBIC ACID 500 MG TAB PO SCH (08:20)
[2018-09-16] MEDS: FERROUS SULFATE 325 MG TAB PO SCH ×3 (08:20→17:21)
[2018-09-16] MEDS: SPIRONOLACTONE 25 MG TAB PO SCH (08:20)
[2018-09-16] MEDS: ASPIRIN 81 MG ECTAB PO SCH (08:20)
[2018-09-16] MEDS: CARVEDILOL 6.25 MG TAB PO SCH ×2 (08:20→21:05)
[2018-09-16] MEDS: PANTOprazole 40 MG TAB PO SCH (08:20)
[2018-09-16] MEDS: HYDROCORTISONE HC 2.5% CRM 30GM TUBE EXT SCH ×2 (08:22→21:18)
[2018-09-16] MEDS: INSULIN ASPART 100 UNITS/ML 3 ML PEN SC SCH ×4 (08:22→21:16)
[2018-09-16] MEDS: FOLIC ACID 400 MCG TAB PO SCH (08:29)
[2018-09-16 09:22] LABS: Hematocrit (blood only) 33.3 % (42-52); Hemoglobin 9.6 g/dL (14.0-18.0); Mean Corpuscular Hgb Conc 28.8 g/dL (32-36); Platelet Count 238 K/uL (130-400); RDW Coefficient of Variation 16.6 % (11.5-14.5); RDW Standard Deviation 47.7 fL (36.4-46.3); Red Blood Count 4.06 M/uL (4.7-6.1); White Blood Count 7.96 K/uL (4.8-10.8)
[2018-09-16 09:39] LABS: BUN Creatinine Ratio 15.1 (10-20); Calcium 8.6 mg/dl (8.5-10.1); Creatinine Clr Calc Pharmacy 93.3 ml/min; Est GFR (African American) 81.7; Est GFR (Non-African American) 70.5
--- NOTE | 2018-09-16 11:36 | Hospitalist Progress Note ---
Date of Service September 16, 2018 Assessment & Plan (1) CHF exacerbation: Acute on Chronic systolic CHF Hx of lasix use that was d/c'd during admission to [facility] for CVA Continue bid IV lasix Prior dosing was 80mg PO QD Has continued with spironolactone Last echo 2011 showing Type I DD and EF 45%, repeat pending Chest CT without pulmonary embolus. Did show pleural effusions and CHF as well as upper abdominal ascites Cr WNL (2) GI bleed: Hb is actually slightly improved with iron supplementation GIB has slowed per pt Pt declining transfusion due to Jehoviah's Witness beliefs (3) Afib: Eliquis was held on last d/c due to GIB Pt wished to continue with aspirin 81mg, will continue Continue home Coreg Patient has been A.fib - some dysrhythmia on monitor however cardiology feels this is artifact (4) Elevated troponin: Likely demand ischemia Troponin peaked at 0.131 and trended down Asymptomatic Cardiology consulted (5) Rectal adenocarcinoma: Follows with Dr. Nieto - unable to lay flat for initial imaging for XRT due to sob. Will try again when patient has diuresed more. (6) DM type 2 (diabetes mellitus, type 2): Continue SSI, levemir (7) Aortic stenosis: As noted above with CHF (8) Nonischemic cardiomyopathy: continue home carvedilol, spironolactone (9) HLD (hyperlipidemia): continue home simvastatin (10) HTN (hypertension): as above (11) Urinary retention: continue home tamsulosin (12) Seizure: continue home Keppra (13) DVT prophylaxis: SCDs, holding other rx due to recent GIB (14) CVA (cerebral vascular accident): In July, tx at [facility] Completed rehab Continue statin, ASA (15) CKD (chronic kidney disease) stage 2, GFR 60-89 ml/min: Subjective Mr. Price is feeling better today, less sob. No chest pain or palpitations. He reports good urine output. His weights do not appear to be accurate but that may be because he was being weighed on the bed scale and then on the standing scale. Hopefully a standing scale weight tomorrow will give a bit better idea of his balance Review of Systems All systems reviewed & are unremarkable except as noted in HPI & below Physical Exam Vital Signs (Past 24 Hours): Last Vital Signs Temp 36.7 C 03/21/19 11:18 Pulse 72 09/16/18 11:18 Resp 20 09/16/18 11:18 BP 112/72 09/16/18 11:18 Pulse Ox 94 09/16/18 11:18 Physical Exam: General: no distress Eyes: normal inspection, PERLL Respiratory: chest non tender, clear to auscultation, normal breath sounds, no respiratory distress, no accessory muscle use Cardiac: regular rate and rhythm, no rub or gallop, no murmur, +1 pitting edema LEs GI/: active bowel sounds, no abd pain or tenderness, soft, non distended Extremities: normal range of motion, normal strength, non tender Neuro/Psych: alert and oriented x 3, normal mood and affect Skin: normal color, dry Results & Data Laboratory Results Abnormal lab results 09/15/18 09/16/18 09/16/18 Range/Units 20:25 08:48 08:48 RBC 4.06 L (4.7-6.1) M/uL Hgb 9.6 L (14.0-18.0) g/dL Hct 33.3 L (42-52) % MCH 23.6 L (25-34) pg MCHC 28.8 L (32-36) g/dL RDW Std Deviation 47.7 H (36.4-46.3) fL RDW Coeff of Amandeep 16.6 H (11.5-14.5) % Carbon Dioxide 34 H (21-32) mmol/L Glucose 105 H (70-99) mg/dl POC Glucose 141 H (70-99) 09/16/18 09/16/18 Range/Units 11:21 11:32 RBC (4.7-6.1) M/uL Hgb (14.0-18.0) g/dL Hct (42-52) % MCH (25-34) pg MCHC (32-36) g/dL RDW Std Deviation (36.4-46.3) fL RDW Coeff of Amandeep (11.5-14.5) % Carbon Dioxide (21-32) mmol/L Glucose (70-99) mg/dl POC Glucose 115 H 114 H (70-99) (1) CHF exacerbation Heart failure type: unspecified Qualified Code(s): I50.9 - Heart failure, unspecified (2) GI bleed GI bleed type/associated pathology: unspecified gastrointestinal hemorrhage type Qualified Code(s): K92.2 - Gastrointestinal hemorrhage, unspecified (3) Afib Atrial fibrillation type: chronic Qualified Code(s): I48.2 - Chronic atrial fibrillation (4) DM type 2 (diabetes mellitus, type 2) Diabetes mellitus ferry terminal agent insulin use: with ferry terminal agent use Diabetes mellitus complication status: without complication Qualified Code(s): E11.9 - Type 2 diabetes mellitus without complications; Z79.4 - extermination inspector (current) use of insulin (5) Aortic stenosis Cardiac valve disease etiology: etiology unspecified Qualified Code(s): I35.0 - Nonrheumatic aortic (valve) stenosis (6) HLD (hyperlipidemia) Hyperlipidemia type: mixed hyperlipidemia Qualified Code(s): E78.2 - Mixed hyperlipidemia (7) HTN (hypertension) Hypertension type: essential hypertension Qualified Code(s): I10 - Essential (primary) hypertension (8) CVA (cerebral vascular accident) CVA mechanism: embolism Precerebral and cerebral artery: middle cerebral artery Laterality of affected vessel: left Qualified Code(s): I63.412 - Cerebral infarction due to embolism of left middle cerebral artery
[2018-09-16] MEDS: TAMSULOSIN HCL 0.4 MG CAP PO SCH (21:03)
[2018-09-16] MEDS: INSULIN DETEMIR FLEXPEN/FLEX TOUCH 100 UNITS/ML 3ML SQ SCH (21:16)
[2018-09-16] MEDS: SIMVASTATIN 20 MG TAB PO SCH (21:18)
[2018-09-17] MEDS: ACETAMINOPHEN 325 MG TAB PO PRN (02:48)
[2018-09-17] MEDS: ASCORBIC ACID 500 MG TAB PO SCH (07:41)
[2018-09-17] MEDS: PANTOprazole 40 MG TAB PO SCH (07:41)
[2018-09-17] MEDS: CARVEDILOL 6.25 MG TAB PO SCH ×2 (07:41→20:48)
[2018-09-17] MEDS: SPIRONOLACTONE 25 MG TAB PO SCH (07:42)
[2018-09-17] MEDS: FOLIC ACID 400 MCG TAB PO SCH (07:42)
[2018-09-17] MEDS: levETIRAcetam 500 MG TAB PO SCH ×2 (07:42→20:48)
[2018-09-17] MEDS: OMEGA-3 (PURIFIED FISH OIL) 1 GM CAP PO SCH (07:43)
[2018-09-17] MEDS: ASPIRIN 81 MG ECTAB PO SCH (07:43)
[2018-09-17] MEDS: CEROVITE ADV FORMULA TAB PO SCH (07:43)
[2018-09-17] MEDS: FERROUS SULFATE 325 MG TAB PO SCH ×3 (07:43→16:54)
[2018-09-17] MEDS: INSULIN ASPART 100 UNITS/ML 3 ML PEN SC SCH ×4 (07:44→20:48)
[2018-09-17] MEDS: HYDROCORTISONE HC 2.5% CRM 30GM TUBE EXT SCH ×2 (07:44→20:48)
[2018-09-17] MEDS: FUROSEMIDE 40 MG in SYRINGE 0 ML IV SCH ×2 (07:50→16:54)
[2018-09-17 08:29] LABS: Hematocrit (blood only) 31.8 % (42-52); Hemoglobin 9.2 g/dL (14.0-18.0); Mean Corpuscular Hgb Conc 28.9 g/dL (32-36); Mean Platelet Volume 10.3 fL (7.4-10.4); Platelet Count 235 K/uL (130-400); RDW Coefficient of Variation 17.4 % (11.5-14.5); RDW Standard Deviation 49.2 fL (36.4-46.3); Red Blood Count 3.88 M/uL (4.7-6.1); White Blood Count 7.42 K/uL (4.8-10.8)
[2018-09-17 08:54] LABS: Calcium 8.8 mg/dl (8.5-10.1); Creatinine Clr Calc Pharmacy 90.4 ml/min; Est GFR (Non-African American) 68.1; Potassium 3.6 mmol/L (3.5-5.1)
--- NOTE | 2018-09-17 12:23 | Hospitalist Progress Note ---
Date of Service September 17, 2018 Assessment & Plan (1) CHF exacerbation: Acute on Chronic systolic CHF Hx of lasix use that was d/c'd during admission to [facility] for CVA Continue bid IV lasix Prior dosing was 80mg PO QD Has continued with spironolactone Echo showed severely reduced systolic function of 30-35% and global hypokinesis and severely dilated ventricle. Right ventricle is severely dilated with moderately reduced right ventricular systolic function. Severe biatrial dilatation. Bioprosthetic aortic valve. Compared to previous study 08/15/10 systolic function has improved. However a 2016 echo showed an EF of 55% Chest CT without pulmonary embolus. Did show pleural effusions and CHF as well as upper abdominal ascites Cr WNL (2) GI bleed: Hb is actually slightly improved with iron supplementation GIB has slowed per pt Pt declining transfusion due to Jehoviah's Witness beliefs (3) Afib: Eliquis was held on last d/c due to GIB Pt wished to continue with aspirin 81mg, will continue Continue home Coreg Patient has been A.fib - some dysrhythmia on monitor however cardiology feels this is artifact I discussed with Dr. Hawkins who performed his colonoscopy concerning restarting anticoagulation. He feels he is at a high risk for bleeding again. He will also be starting radiation therapy which may cause some bleeding. Given that we would be unable to transfuse him due to his methodist beliefs I think starting anticoagulation at this time would be too risky until something changes with his mass ie. completion of chemo/radiation shrinks the tumor or if a resection is performed. He has significant risk for stroke given A.fib with history of CVA and additional risk for DVT/PE given his hypercoagulable state due to cancer. His CHADS-VASC is 6 which puts him at a 9.7% risk of stroke per year. However, his HAS-BLED score is 4 making him high risk for major bleed. He is stuck between two difficult choices unfortunately. I did discuss all of this in depth with the patient and he is in agreement with holding off on anticoagulation at this time. (4) Elevated troponin: Likely demand ischemia Troponin peaked at 0.131 and trended down Asymptomatic Cardiology consulted (5) Rectal adenocarcinoma: Follows with Dr. Nieto - unable to lay flat for initial imaging for XRT due to sob. Will try again when patient has diuresed more. (6) DM type 2 (diabetes mellitus, type 2): Continue SSI, levemir (7) Aortic stenosis: As noted above with CHF (8) Nonischemic cardiomyopathy: continue home carvedilol, spironolactone (9) HLD (hyperlipidemia): continue home simvastatin (10) HTN (hypertension): as above (11) Urinary retention: continue home tamsulosin (12) Seizure: continue home Keppra (13) DVT prophylaxis: SCDs, holding chemoprophylaxis as discussed above (14) CVA (cerebral vascular accident): In July, tx at [facility] Completed rehab Continue statin, ASA (15) CKD (chronic kidney disease) stage 2, GFR 60-89 ml/min: Subjective Mr. Price is improving though he still does not think he'd be able to lay flat for rad onc imaging. He is down 1300 mls and almost 1 kg since admission. There was report from the night nurse that there was a 10 beat run of Vtach at 0242 but the tele monitor was unable to locate it and I don't see a strip. Patient was apparently asymptomatic. Review of Systems All systems reviewed & are unremarkable except as noted in HPI & below Physical Exam Vital Signs (Past 24 Hours): Last Vital Signs Temp 36.4 C L 09/17/18 11:31 Pulse 70 09/17/18 11:31 Resp 19 09/17/18 11:31 BP 106/64 09/17/18 11:31 Pulse Ox 93 09/17/18 11:31 Physical Exam: General: no distress Eyes: normal inspection, PERLL Respiratory: chest non tender, clear to auscultation, normal breath sounds, no respiratory distress, no accessory muscle use Cardiac: regular rate and rhythm, no rub or gallop, no murmur, +2 pitting edema lower extremities GI/: active bowel sounds, no abd pain or tenderness, soft, non distended Extremities: normal range of motion, normal strength, non tender Neuro/Psych: alert and oriented x 3, normal mood and affect Skin: normal color, dry Results & Data Laboratory Results Abnormal lab results 09/16/18 09/17/18 09/17/18 Range/Units 21:16 07:15 08:08 RBC 3.88 L (4.7-6.1) M/uL Hgb 9.2 L (14.0-18.0) g/dL Hct 31.8 L (42-52) % MCH 23.7 L (25-34) pg MCHC 28.9 L (32-36) g/dL RDW Std Deviation 49.2 H (36.4-46.3) fL RDW Coeff of Amandeep 17.4 H (11.5-14.5) % Carbon Dioxide (21-32) mmol/L Glucose (70-99) mg/dl POC Glucose 136 H 109 H (70-99) 03//19 Range/Units 08:08 RBC (4.7-6.1) M/uL Hgb (14.0-18.0) g/dL Hct (42-52) % MCH (25-34) pg MCHC (32-36) g/dL RDW Std Deviation (36.4-46.3) fL RDW Coeff of Amandeep (11.5-14.5) % Carbon Dioxide 33 H (21-32) mmol/L Glucose 103 H (70-99) mg/dl POC Glucose (70-99) (1) CHF exacerbation Heart failure type: unspecified Qualified Code(s): I50.9 - Heart failure, unspecified (2) GI bleed GI bleed type/associated pathology: unspecified gastrointestinal hemorrhage type Qualified Code(s): K92.2 - Gastrointestinal hemorrhage, unspecified (3) DM type 2 (diabetes mellitus, type 2) Diabetes mellitus complication status: without complication Diabetes mellitus intermediate designer insulin use: with mcfp use Qualified Code(s): E11.9 - Type 2 diabetes mellitus without complications; Z79.4 - FDC (current) use of insulin (4) Aortic stenosis Cardiac valve disease etiology: etiology unspecified Qualified Code(s): I35.0 - Nonrheumatic aortic (valve) stenosis (5) Afib Atrial fibrillation type: chronic Qualified Code(s): I48.2 - Chronic atrial fibrillation (6) HLD (hyperlipidemia) Hyperlipidemia type: mixed hyperlipidemia Qualified Code(s): E78.2 - Mixed hyperlipidemia (7) HTN (hypertension) Hypertension type: essential hypertension Qualified Code(s): I10 - Essential (primary) hypertension (8) CVA (cerebral vascular accident) CVA mechanism: embolism Laterality of affected vessel: left Precerebral and cerebral artery: middle cerebral artery Qualified Code(s): I63.412 - Cerebral infarction due to embolism of left middle cerebral artery
--- NOTE | 2018-09-17 17:47 | Cardiology Progress Note ---
Date of Service September 17, 2018 Assessment & Plan (1) CHF exacerbation: It pulmonary edema the time of admission. Initially, he responded well to diuretics although over the past 2 days he does not appear to have had a significant diuresis. I think would be reasonable to increase his diuretic dose in the hopes of reducing his edema and improving his breathing. Renal function remains stable at this point. Present on Admission?: Yes (2) H/O aortic valve replacement: Echocardiogram demonstrated normal function of his bioprosthetic aortic valve (3) Nonischemic cardiomyopathy: His overall LV function has waxed and waned over the past few years. At [facility] is felt to have ejection fraction around 45 percent. Echocardiogram performed yesterday suggested worse LV systolic function. He also has biatrial dilation. He has an element of mitral regurgitation as well. He is on a beta-penny and spironolactone. Diuretics are currently being a dministered. Ideally, he would also be on an ANTON-inhibitor however his overall blood pressures have been relatively low. It is unclear whether he would tolerate Anton inhibition. I think we should affect a good diuresis 1st and then determine whether we could add an Anton inhibitor prior to discharge. He is presumed to have a nonischemic cardiomyopathy. Ischemic evaluation could be entertained, but his current comorbidities and history of gastrointestinal hemorrhage make a coronary intervention less attractive. In the absence of significant angina or persistent decompensation I think we can defer an evaluation of his coronaries. (4) Afib: Rate controlled. No symptoms. Previously he was on anticoagulation but this has been discontinued due to gastrointestinal hemorrhage and the concern over repeat hemorrhage. He did have a recent cerebral vascular accident likely related to his atrial fibrillation. However, at this point the risks of anti coagulation appear to outweigh the benefits. Subjective Today the patient claims to be feeling better than admission. He still continues to have an element of dyspnea with mild activity. He is ambulatory around the room to the bathroom. He denies any orthostatic symptoms. He did not report any dizziness or sense of palpitation. Physical Exam Vital Signs (Past 24 Hours): Last Vital Signs Temp 36.4 C L 09/17/18 15:35 Pulse 59 L 09/17/18 15:35 Resp 17 09/17/18 15:35 BP 102/59 L 09/17/18 15:35 Pulse Ox 93 09/17/18 15:35 Physical Exam: The patient is alert and oriented. Mood and affect appeared normal. He answered all questions appropriately. HEENT: Pupils are equal and reactive to light and accommodation. Extraocular movements are intact. The sclerae are anicteric. Neuro: Cranial nerves intact Neck: Patient's neck is supple. He has palpable carotid pulses bilaterally without bruits on auscultation. There is no evidence of jugular venous distention. The thyroid is not enlarged. Lungs: More respiratory effort Cardiac: Heart demonstrates an irregular rate and rhythm. Normal S1 and S2. Pulses: The patient has palpable radial pulses bilaterally that are equal in intensity Extremities: There was no evidence of hypoperfusion. There is no cyanosis or clubbing. Severe bilateral edema in the legs. Skin: I did not appreciate any rashes on examination today. Results & Data Laboratory Results Abnormal Lab Results 09/16/18 09/17/18 09/17/18 21:16 07:15 08:08 WBC 7.42 RBC 3.88 L Hgb 9.2 L Hct 31.8 L MCV 82.0 MCH 23.7 L MCHC 28.9 L RDW Std Deviation 49.2 H RDW Coeff of Amandeep 17.4 H Plt Count 235 MPV 10.3 Sodium Potassium Chloride Carbon Dioxide Anion Gap BUN Creatinine Est Cr Clr Drug Dosing Est GFR ( Amer) Est GFR (Non-Af Amer) BUN/Creatinine Ratio Glucose POC Glucose 136 H 109 H Calcium 09/17/18 09/17/18 09/17/18 08:08 11:17 16:49 WBC RBC Hgb Hct MCV MCH MCHC RDW Std Deviation RDW Coeff of Amandeep Plt Count MPV Sodium 141 Potassium 3.6 Chloride 104 Carbon Dioxide 33 H Anion Gap 5.0 BUN 17 Creatinine 1.10 Est Cr Clr Drug Dosing 90.4 Est GFR ( Amer) 79.0 Est GFR (Non-Af Amer) 68.1 BUN/Creatinine Ratio 15.0 Glucose 103 H POC Glucose 85 91 Calcium 8.8 (1) CHF exacerbation Heart failure type: unspecified Qualified Code(s): I50.9 - Heart failure, unspecified (2) Afib Atrial fibrillation type: chronic Qualified Code(s): I48.2 - Chronic atrial fibrillation
[2018-09-17] MEDS: SIMVASTATIN 20 MG TAB PO SCH (20:48)
[2018-09-17] MEDS: TAMSULOSIN HCL 0.4 MG CAP PO SCH (20:48)
[2018-09-17] MEDS: INSULIN DETEMIR FLEXPEN/FLEX TOUCH 100 UNITS/ML 3ML SQ SCH (20:49)
[2018-09-18] MEDS: CARVEDILOL 6.25 MG TAB PO SCH ×2 (07:35→19:42)
[2018-09-18] MEDS: FERROUS SULFATE 325 MG TAB PO SCH ×4 (07:36→19:44)
[2018-09-18] MEDS: OMEGA-3 (PURIFIED FISH OIL) 1 GM CAP PO SCH (07:36)
[2018-09-18] MEDS: SPIRONOLACTONE 25 MG TAB PO SCH (07:36)
[2018-09-18] MEDS: ASCORBIC ACID 500 MG TAB PO SCH (07:36)
[2018-09-18] MEDS: levETIRAcetam 500 MG TAB PO SCH ×2 (07:36→19:43)
[2018-09-18] MEDS: PANTOprazole 40 MG TAB PO SCH (07:36)
[2018-09-18] MEDS: ASPIRIN 81 MG ECTAB PO SCH (07:37)
[2018-09-18] MEDS: HYDROCORTISONE HC 2.5% CRM 30GM TUBE EXT SCH ×2 (07:37→19:43)
[2018-09-18] MEDS: CEROVITE ADV FORMULA TAB PO SCH (07:37)
[2018-09-18] MEDS: FOLIC ACID 400 MCG TAB PO SCH (07:40)
[2018-09-18] MEDS: INSULIN ASPART 100 UNITS/ML 3 ML PEN SC SCH ×4 (07:40→21:13)
[2018-09-18 08:27] LABS: Basophils # (auto) 0.01 K/uL (0-0.2); Basophils % (auto) 0.1 %; Eosinophils # (auto) 0.37 K/uL (0-0.5); Eosinophils % (auto) 5.1 %; Hematocrit (blood only) 32.4 % (42-52); Hemoglobin 9.4 g/dL (14.0-18.0); Immature Granulocytes # (auto) 0.01 K/uL (0.00-0.02); Immature Granulocytes % (auto) 0.1 %; Lymphocytes # (auto) 2.26 K/uL (1.2-3.4); Lymphocytes % (auto) 31.1 %; Mean Corpuscular Volume 82.2 fL (80-100); Mean Platelet Volume 9.9 fL (7.4-10.4); Neutrophils # (auto) 3.81 K/uL (1.4-6.5); Neutrophils % (auto) 52.6 %; Platelet Count 231 K/uL (130-400); RDW Coefficient of Variation 17.9 % (11.5-14.5); RDW Standard Deviation 50.9 fL (36.4-46.3); Red Blood Count 3.94 M/uL (4.7-6.1); White Blood Count 7.26 K/uL (4.8-10.8)
[2018-09-18] MEDS: FUROSEMIDE 80 MG in SYRINGE 0 ML IV SCH ×2 (08:49→16:38)
[2018-09-18 08:56] LABS: BUN Creatinine Ratio 16.2 (10-20); Calcium 8.8 mg/dl (8.5-10.1); Creatinine Clr Calc Pharmacy 91.1 ml/min; Est GFR (African American) 79.8; Est GFR (Non-African American) 68.9; Potassium 3.5 mmol/L (3.5-5.1)
[2018-09-18] MEDS: ACETAMINOPHEN 325 MG TAB PO PRN ×2 (13:54→23:47)
--- NOTE | 2018-09-18 14:19 | Hospitalist Progress Note ---
Date of Service September 18, 2018 Assessment & Plan (1) CHF exacerbation: Acute on Chronic systolic CHF Hx of lasix use that was d/c'd during admission to [facility] for CVA Continue bid IV lasix - increased from 40 to 80 mg per cardiology as patient's diuresis had dropped off Prior dosing was 80mg PO QD Has continued with spironolactone Echo showed severely reduced systolic function of 30-35% and global hypokinesis and severely dilated ventricle. Right ventricle is severely dilated with moderately reduced right ventricular systolic function. Severe biatrial dilatation. Bioprosthetic aortic valve. Compared to previous study 08/15/10 systolic function has improved. However a 2016 echo showed an EF of 55% Chest CT without pulmonary embolus. Did show pleural effusions and CHF as well as upper abdominal ascites Cr WNL (2) GI bleed: Hb is actually slightly improved with iron supplementation GIB has slowed per pt FOBT positive Pt declining transfusion due to Jehoviah's Witness beliefs (3) Afib: Eliquis was held on last d/c due to GIB Pt wished to continue with aspirin 81mg, will continue Continue home Coreg Patient has been A.fib - some dysrhythmia on monitor however cardiology feels this is artifact Not anticoagulated at this time due to high risk for bleed and inability to transfuse due to his islam beliefs (4) Elevated troponin: Likely demand ischemia Troponin peaked at 0.131 and trended down Asymptomatic Cardiology consulted (5) Rectal adenocarcinoma: Follows with Dr. Nieto - unable to lay flat for initial imaging for XRT due to sob. Will try again when patient has diuresed more. (6) DM type 2 (diabetes mellitus, type 2): Continue SSI, levemir (7) Aortic stenosis: As noted above with CHF (8) Nonischemic cardiomyopathy: continue home carvedilol, spironolactone (9) HLD (hyperlipidemia): continue home simvastatin (10) HTN (hypertension): as above (11) Urinary retention: continue home tamsulosin (12) Seizure: continue home Keppra (13) DVT prophylaxis: SCDs, holding chemoprophylaxis as discussed above (14) CVA (cerebral vascular accident): In July, at [facility] Completed rehab Continue statin, ASA (15) CKD (chronic kidney disease) stage 2, GFR 60-89 ml/min: Subjective Mr. Price is feeling better today than yesterday. Increased urine output with increased lasix. Review of Systems All systems reviewed & are unremarkable except as noted in HPI & below Physical Exam Vital Signs (Past 24 Hours): Last Vital Signs Temp 36.7 C 09/18/18 11:24 Pulse 76 09/18/18 11:24 Resp 18 09/18/18 11:24 BP 101/63 09/18/18 11:24 Pulse Ox 94 09/18/18 11:24 Physical Exam: General: no distress Eyes: normal inspection, PERLL Respiratory: chest non tender, clear to auscultation, normal breath sounds, no respiratory distress, no accessory muscle use Cardiac: irregular rate and rhythm, no rub or gallop, no murmur, +1 pitting edema lower extremities GI/: active bowel sounds, no abd pain or tenderness, soft, non distended Extremities: normal range of motion, normal strength, non tender Neuro/Psych: alert and oriented x 3, normal mood and affect Skin: normal color, dry Results & Data Laboratory Results Abnormal lab results 09/18/18 09/18/18 09/18/18 Range/Units 07:23 08:14 08:14 RBC 3.94 L (4.7-6.1) M/uL Hgb 9.4 L (14.0-18.0) g/dL Hct 32.4 L (42-52) % MCH 23.9 L (25-34) pg MCHC 29.0 L (32-36) g/dL RDW Std Deviation 50.9 H (36.4-46.3) fL RDW Coeff of Aamndeep 17.9 H (11.5-14.5) % [place] # (Auto) 0.80 H (0.11-0.59) K/uL Carbon Dioxide 35 H (21-32) mmol/L Glucose 111 H (70-99) mg/dl POC Glucose 105 H (70-99) Stool Occult Bld Scrn (Negative) 09/18/18 09/18/18 Range/Units 09:11 11:12 RBC (4.7-6.1) M/uL Hgb (14.0-18.0) g/dL Hct (42-52) % MCH (25-34) pg MCHC (32-36) g/dL RDW Std Deviation (36.4-46.3) fL RDW Coeff of Amandeep (11.5-14.5) % [place] # (Auto) (0.11-0.59) K/uL Carbon Dioxide (21-32) mmol/L Glucose (70-99) mg/dl POC Glucose 116 H (70-99) Stool Occult Bld Scrn Positive H (Negative) (1) CHF exacerbation Heart failure type: unspecified Qualified Code(s): I50.9 - Heart failure, unspecified (2) GI bleed GI bleed type/associated pathology: unspecified gastrointestinal hemorrhage type Qualified Code(s): K92.2 - Gastrointestinal hemorrhage, unspecified (3) Afib Atrial fibrillation type: chronic Qualified Code(s): I48.2 - Chronic atrial fibrillation (4) DM type 2 (diabetes mellitus, type 2) Diabetes mellitus snf insulin use: with middle or intermediate school principal use Diabetes mellitus complication status: without complication Qualified Code(s): E11.9 - Type 2 diabetes mellitus without complications; Z79.4 - retirement (current) use of insulin (5) Aortic stenosis Cardiac valve disease etiology: etiology unspecified Qualified Code(s): I35.0 - Nonrheumatic aortic (valve) stenosis (6) HLD (hyperlipidemia) Hyperlipidemia type: mixed hyperlipidemia Qualified Code(s): E78.2 - Mixed hyperlipidemia (7) HTN (hypertension) Hypertension type: essential hypertension Qualified Code(s): I10 - Essential (primary) hypertension (8) CVA (cerebral vascular accident) CVA mechanism: embolism Precerebral and cerebral artery: middle cerebral artery Laterality of affected vessel: left Qualified Code(s): I63.412 - Cerebral infarction due to embolism of left middle cerebral artery
--- NOTE | 2018-09-18 15:14 | Cardiology Progress Note ---
Date of Service September 18, 2018 Assessment & Plan (1) CHF exacerbation: Symptomatic Charisse improved. His lung examination is also normal today. However, he has an element of hypovolemia. He has diuresed some today and will receive an extra dose of Lasix this evening. If he does not diurese si gnificantly over the course of this past 24 hours we may need to intensify his diuretic regimen again tomorrow. This could include addition of a thiazide diuretic or simply higher doses of Lasix. Renal function electrolytes appear to be stable. (2) H/O aortic valve replacement: Echocardiogram demonstrated normal function of his bioprosthetic aortic valve (3) Nonischemic cardiomyopathy: His overall LV function has waxed and waned over the past few years. Continuing to monitor his hemodynamics. There may be an opportunity for addition of an JOSÉ ANTONIO-inhibitor prior to discharge. Continue beta blockade and spironolactone. (4) Afib: Rate controlled. No symptoms. Previously he was on anticoagulation but this has been discontinued due to gastrointestinal hemorrhage and the concern over repeat hemorrhage. He did have a recent cerebral vascular accident likely related to his atrial fibrillation. However, at this point the risks of anticoagulation appear to outweigh the benefits. Subjective This afternoon the patient was able to ambulate with physical therapy. He states that he did have an element of dyspnea but no dizziness. He thinks the lower extremity edema is improved. Physical Exam Vital Signs (Past 24 Hours): Last Vital Signs Temp 36.7 C 09/18/18 11:24 Pulse 63 09/18/18 15:08 Resp 18 09/18/18 11:24 BP 101/63 09/18/18 11:24 Pulse Ox 94 09/18/18 11:24 Physical Exam: The patient is alert and oriented. Mood and affect appeared normal. He answered all questions appropriately. HEENT: Pupils are equal and reactive to light and accommodation. Extraocular movements are intact. The sclerae are anicteric. Neuro: Cranial nerves intact Neck: Patient's neck is supple. He has palpable carotid pulses bilaterally without bruits on auscultation. There is no evidence of jugular venous distention. The thyroid is not enlarged. Lungs: Clear to auscultation bilaterally. He has good air movement without use of accessory muscles. No rales wheezes or rhonchi. Cardiac: Heart demonstrates an irregular rate and rhythm. Normal S1 and S2. Pulses: The patient has palpable radial pulses bilaterally that are equal in intensity Extremities: There was no evidence of hypoperfusion. There is no cyanosis or clubbing. Moderate lower extremity edema. Skin: I did not appreciate any rashes on examination today. Results & Data Laboratory Results Abnormal Lab Results 09/17/18 09/17/18 09/18/18 16:49 20:43 07:23 WBC RBC Hgb Hct MCV MCH MCHC RDW Std Deviation RDW Coeff of Amandeep Plt Count MPV Immature Gran % (Auto) Neut % (Auto) Lymph % (Auto) [place] % (Auto) Eos % (Auto) Baso % (Auto) Immature Gran # (Auto) Neut # (Auto) Lymph # (Auto) [place] # (Auto) Eos # (Auto) Baso # (Auto) Sodium Potassium Chloride Carbon Dioxide Anion Gap BUN Creatinine Est Cr Clr Drug Dosing Est GFR ( Amer) Est GFR (Non-Af Amer) BUN/Creatinine Ratio Glucose POC Glucose 91 89 105 H Calcium Stool Occult Bld Scrn 09/18/18 09/18/18 09/18/18 08:14 08:14 09:11 WBC 7.26 RBC 3.94 L Hgb 9.4 L Hct 32.4 L MCV 82.2 MCH 23.9 L MCHC 29.0 L RDW Std Deviation 50.9 H RDW Coeff of Amandeep 17.9 H Plt Count 231 MPV 9.9 Immature Gran % (Auto) 0.1 Neut % (Auto) 52.6 Lymph % (Auto) 31.1 [place] % (Auto) 11.0 Eos % (Auto) 5.1 Baso % (Auto) 0.1 Immature Gran # (Auto) 0.01 Neut # (Auto) 3.81 Lymph # (Auto) 2.26 [place] # (Auto) 0.80 H Eos # (Auto) 0.37 Baso # (Auto) 0.01 Sodium 140 Potassium 3.5 Chloride 101 Carbon Dioxide 35 H Anion Gap 4.0 BUN 18 Creatinine 1.09 Est Cr Clr Drug Dosing 91.1 Est GFR ( Amer) 79.8 Est GFR (Non-Af Amer) 68.9 BUN/Creatinine Ratio 16.2 Glucose 111 H POC Glucose Calcium 8.8 Stool Occult Bld Scrn Positive H 09/18/18 11:12 WBC RBC Hgb Hct MCV MCH MCHC RDW Std Deviation RDW Coeff of Amandeep Plt Count MPV Immature Gran % (Auto) Neut % (Auto) Lymph % (Auto) [place] % (Auto) Eos % (Auto) Baso % (Auto) Immature Gran # (Auto) Neut # (Auto) Lymph # (Auto) [place] # (Auto) Eos # (Auto) Baso # (Auto) Sodium Potassium Chloride Carbon Dioxide Anion Gap BUN Creatinine Est Cr Clr Drug Dosing Est GFR ( Amer) Est GFR (Non-Af Amer) BUN/Creatinine Ratio Glucose POC Glucose 116 H Calcium Stool Occult Bld Scrn (1) CHF exacerbation Heart failure type: unspecified Qualified Code(s): I50.9 - Heart failure, unspecified (2) Afib Atrial fibrillation type: chronic Qualified Code(s): I48.2 - Chronic atrial fibrillation
[2018-09-18] MEDS: TAMSULOSIN HCL 0.4 MG CAP PO SCH (19:43)
[2018-09-18] MEDS: SIMVASTATIN 20 MG TAB PO SCH (19:44)
[2018-09-18] MEDS: INSULIN DETEMIR FLEXPEN/FLEX TOUCH 100 UNITS/ML 3ML SQ SCH (21:15)
[2018-09-19] MEDS: INSULIN ASPART 100 UNITS/ML 3 ML PEN SC SCH ×4 (08:00→20:41)
[2018-09-19] MEDS: CARVEDILOL 6.25 MG TAB PO SCH ×2 (08:01→19:44)
[2018-09-19] MEDS: PANTOprazole 40 MG TAB PO SCH (08:01)
[2018-09-19] MEDS: CEROVITE ADV FORMULA TAB PO SCH (08:01)
[2018-09-19] MEDS: SPIRONOLACTONE 25 MG TAB PO SCH (08:02)
[2018-09-19] MEDS: ASPIRIN 81 MG ECTAB PO SCH (08:02)
[2018-09-19] MEDS: OMEGA-3 (PURIFIED FISH OIL) 1 GM CAP PO SCH (08:02)
[2018-09-19] MEDS: HYDROCORTISONE HC 2.5% CRM 30GM TUBE EXT SCH ×2 (08:02→19:44)
[2018-09-19] MEDS: ASCORBIC ACID 500 MG TAB PO SCH (08:02)
[2018-09-19] MEDS: levETIRAcetam 500 MG TAB PO SCH ×2 (08:02→19:43)
[2018-09-19] MEDS: FOLIC ACID 400 MCG TAB PO SCH (08:03)
[2018-09-19] MEDS: FUROSEMIDE 80 MG in SYRINGE 0 ML IV SCH ×2 (08:06→16:49)
[2018-09-19 09:20] LABS: Calcium 8.4 mg/dl (8.5-10.1); Creatinine Clr Calc Pharmacy 91.1 ml/min; Est GFR (African American) 80.7; Est GFR (Non-African American) 69.7; Potassium 2.9 mmol/L (3.5-5.1)
[2018-09-19] MEDS ORDERED: POTASSIUM CHLORIDE 20 MEQ TABCR PO ONE ×2 (09:32→12:00)
[2018-09-19] MEDS: FERROUS SULFATE 325 MG TAB PO SCH ×2 (11:46→16:49)
--- NOTE | 2018-09-19 12:07 | Hospitalist Progress Note ---
Date of Service September 19, 2018 Assessment & Plan (1) CHF exacerbation: Acute on Chronic systolic CHF Hx of lasix use that was d/c'd during admission to [facility] for CVA Continue bid IV lasix - better diuresis with increased lasix Prior dosing was 80mg PO QD Has continued with spironolactone Echo showed severely reduced systolic function of 30-35% and global hypokinesis and severely dilated ventricle. Right ventricle is severely dilated with moderately reduced right ventricular systolic function. Severe biatrial dilatation. Bioprosthetic aortic valve. Compared to previous study 08/15/10 systolic function has improved. However a 2016 echo showed an EF of 55% Chest CT without pulmonary embolus. Did show pleural effusions and CHF as well as upper abdominal ascites Cr WNL (2) GI bleed: Hb is actually slightly improved with iron supplementation FOBT positive Pt declining transfusion due to Jehoviah's Witness beliefs (3) Afib: Eliquis was held on last d/c due to GIB Pt wished to continue with aspirin 81mg, will continue Continue home Coreg Patient has been A.fib Not anticoagulated at this time due to high risk for bleed and inability to transfuse due to his jain beliefs (4) Elevated troponin: Likely demand ischemia Troponin peaked at 0.131 and trended down Asymptomatic Cardiology consulted (5) Rectal adenocarcinoma: Follows with Dr. Nieto - unable to lay flat for initial imaging for XRT due to sob at admission - feels he would be able to do so now. Will need to contact rad onc on Thursday to schedule. (6) DM type 2 (diabetes mellitus, type 2): Continue SSI, levemir (7) Aortic stenosis: As noted above with CHF (8) Nonischemic cardiomyopathy: continue home carvedilol, spironolactone (9) HLD (hyperlipidemia): continue home simvastatin (10) HTN (hypertension): as above (11) Urinary retention: continue home tamsulosin (12) Seizure: continue home Keppra (13) Hypokalemia: K 2.9 today - replaced, repeat bmp tomorrow (14) CVA (cerebral vascular accident): In July, at [facility] Completed rehab Continue statin, ASA (15) CKD (chronic kidney disease) stage 2, GFR 60-89 ml/min: (16) DVT prophylaxis: SCDs, holding chemoprophylaxis as discussed above Subjective Mr. Price feels he is improving and that he is putting out quite a bit of urine. A.fib on the monitor with PVCs and aberrant conduction at times. Output was better with increased lasix - about a liter and a half out yesterday, down 2kg since admission Review of Systems All systems reviewed & are unremarkable except as noted in HPI & below Physical Exam Vital Signs (Past 24 Hours): Last Vital Signs Temp 36.3 C L 09/19/18 11:19 Pulse 65 09/19/18 11:19 Resp 16 09/19/18 11:19 BP 114/71 09/19/18 11:19 Pulse Ox 94 09/19/18 11:19 Physical Exam: General: no distress Eyes: normal inspection, PERLL Respiratory: chest non tender, clear to auscultation, normal breath sounds, no respiratory distress, no accessory muscle use Cardiac: regular rate and rhythm, no rub or gallop, no murmur, + 2 pitting edema lower extremities GI/: active bowel sounds, no abd pain or tenderness, soft, non distended Extremities: normal range of motion, normal strength, non tender Neuro/Psych: alert and oriented x 3, normal mood and affect Skin: normal color, dry Results & Data Laboratory Results Abnormal lab results 09/18/18 09/19/18 09/19/18 Range/Units 20:52 07:34 08:34 Potassium 2.9 L D (3.5-5.1) mmol/L Carbon Dioxide 38 H (21-32) mmol/L Anion Gap 2.0 L (3-11) Glucose 110 H (70-99) mg/dl POC Glucose 129 H 108 H (70-99) Calcium 8.4 L (8.5-10.1) mg/dl (1) CHF exacerbation Heart failure type: unspecified Qualified Code(s): I50.9 - Heart failure, unspecified (2) GI bleed GI bleed type/associated pathology: unspecified gastrointestinal hemorrhage type Qualified Code(s): K92.2 - Gastrointestinal hemorrhage, unspecified (3) DM type 2 (diabetes mellitus, type 2) Diabetes mellitus complication status: without complication Diabetes mellitus half-way insulin use: with half-way use Qualified Code(s): E11.9 - Type 2 diabetes mellitus without complications; Z79.4 - buttermaker continuous churn (current) use of insulin (4) Aortic stenosis Cardiac valve disease etiology: etiology unspecified Qualified Code(s): I35.0 - Nonrheumatic aortic (valve) stenosis (5) Afib Atrial fibrillation type: chronic Qualified Code(s): I48.2 - Chronic atrial fibrillation (6) HLD (hyperlipidemia) Hyperlipidemia type: mixed hyperlipidemia Qualified Code(s): E78.2 - Mixed hyperlipidemia (7) HTN (hypertension) Hypertension type: essential hypertension Qualified Code(s): I10 - Essential (primary) hypertension (8) CVA (cerebral vascular accident) CVA mechanism: embolism Laterality of affected vessel: left Precerebral and cerebral artery: middle cerebral artery Qualified Code(s): I63.412 - Cerebral infarction due to embolism of left middle cerebral artery
--- NOTE | 2018-09-19 12:56 | Cardiology Progress Note ---
Date of Service September 19, 2018 Assessment & Plan (1) CHF exacerbation: His symptoms are improved. His lower extremity edema is improved. He did affect a good diuresis yesterday. I think we can continue his current dose of Lasix. He will require some potassium supplementation. At some point will need to transition back to oral regimen. (2) H/O aortic valve replacement: Echocardiogram demonstrated normal function of his bioprosthetic aortic va lve (3) Nonischemic cardiomyopathy: His overall LV function has waxed and waned over the past few years. Continuing to monitor his hemodynamics. There may be an opportunity for addition of an JOSÉ ANTONIO-inhibitor prior to discharge. Continue beta blockade and spironolactone. (4) Afib: Rate controlled. No symptoms. Previously he was on anticoagulation but this has been discontinued due to gastrointestinal hemorrhage and the concern over repeat hemorrhage. He did have a recent cerebral vascular accident likely related to his atrial fibrillation. However, at this point the risks of anticoagulation appear to outweigh the benefits. Subjective This afternoon the patient lately feeling well. He was ambulatory without assistance today. He states that the swelling of lower extremities is improved. His breathing is also improved. Physical Exam Vital Signs (Past 24 Hours): Last Vital Signs Temp 36.3 C L 09/19/18 11:19 Pulse 65 09/19/18 11:19 Resp 16 09/19/18 11:19 BP 114/71 09/19/18 11:19 Pulse Ox 94 09/19/18 11:19 Physical Exam: The patient is alert and oriented. Mood and affect appeared normal. He answered all questions appropriately. Obese HEENT: Pupils are equal and reactive to light and accommodation. Extraocular movements are intact. The sclerae are anicteric. Neuro: Cranial nerves intact Lungs: Clear to auscultation bilaterally. He has good air movement without use of accessory muscles. No rales wheezes or rhonchi. Cardiac: Heart demonstrates an irregular rate and rhythm. Normal S1 and S2. No murmurs on examination. Pulses: The patient has palpable radial pulses bilaterally that are equal in intensity Extremities: There was no evidence of hypoperfusion. There is no cyanosis or clubbing. Moderate lower extremity edema. Skin: I did not appreciate any rashes on examination today. Results & Data Laboratory Results Abnormal Lab Results 03/23/19 03/23/19 03/24/19 16:14 20:52 07:34 Sodium Potassium Chloride Carbon Dioxide Anion Gap BUN Creatinine Est Cr Clr Drug Dosing Est GFR ( Amer) Est GFR (Non-Af Amer) BUN/Creatinine Ratio Glucose POC Glucose 81 129 H 108 H Calcium 09/19/18 09/19/18 08:34 11:22 Sodium 140 Potassium 2.9 L D Chloride 100 Carbon Dioxide 38 H Anion Gap 2.0 L BUN 17 Creatinine 1.08 Est Cr Clr Drug Dosing 91.1 Est GFR ( Amer) 80.7 Est GFR (Non-Af Amer) 69.7 BUN/Creatinine Ratio 16.0 Glucose 110 H POC Glucose 72 Calcium 8.4 L ECG Additional Comments: Atrial fibrillation with controlled rates (1) CHF exacerbation Heart failure type: unspecified Qualified Code(s): I50.9 - Heart failure, unspecified (2) Afib Atrial fibrillation type: chronic Qualified Code(s): I48.2 - Chronic atrial fibrillation
[2018-09-19] MEDS: ACETAMINOPHEN 325 MG TAB PO PRN ×2 (14:40→23:48)
[2018-09-19] MEDS: TAMSULOSIN HCL 0.4 MG CAP PO SCH (19:44)
[2018-09-19] MEDS: SIMVASTATIN 20 MG TAB PO SCH (19:45)
[2018-09-19] MEDS: INSULIN DETEMIR FLEXPEN/FLEX TOUCH 100 UNITS/ML 3ML SQ SCH (20:41)
[2018-09-20 07:45] LABS: Hematocrit (blood only) 32.4 % (42-52); Hemoglobin 9.5 g/dL (14.0-18.0); Mean Corpuscular Hgb Conc 29.3 g/dL (32-36); Mean Corpuscular Volume 82.2 fL (80-100); Mean Platelet Volume 10.2 fL (7.4-10.4); Platelet Count 215 K/uL (130-400); RDW Coefficient of Variation 18.6 % (11.5-14.5); RDW Standard Deviation 53.9 fL (36.4-46.3); Red Blood Count 3.94 M/uL (4.7-6.1)
[2018-09-20] MEDS: levETIRAcetam 500 MG TAB PO SCH ×2 (07:58→20:31)
[2018-09-20] MEDS: CARVEDILOL 6.25 MG TAB PO SCH ×2 (07:58→20:31)
[2018-09-20] MEDS: FOLIC ACID 400 MCG TAB PO SCH (07:58)
[2018-09-20] MEDS: ASCORBIC ACID 500 MG TAB PO SCH (07:58)
[2018-09-20] MEDS: CEROVITE ADV FORMULA TAB PO SCH (07:58)
[2018-09-20] MEDS: FERROUS SULFATE 325 MG TAB PO SCH ×3 (07:59→16:22)
[2018-09-20] MEDS: OMEGA-3 (PURIFIED FISH OIL) 1 GM CAP PO SCH (07:59)
[2018-09-20] MEDS: PANTOprazole 40 MG TAB PO SCH (07:59)
[2018-09-20] MEDS: SPIRONOLACTONE 25 MG TAB PO SCH (07:59)
[2018-09-20] MEDS: ASPIRIN 81 MG ECTAB PO SCH (07:59)
[2018-09-20] MEDS: INSULIN ASPART 100 UNITS/ML 3 ML PEN SC SCH ×4 (08:00→20:34)
[2018-09-20] MEDS: FUROSEMIDE 80 MG in SYRINGE 0 ML IV SCH ×2 (08:00→16:22)
[2018-09-20] MEDS: HYDROCORTISONE HC 2.5% CRM 30GM TUBE EXT SCH ×2 (08:00→20:31)
[2018-09-20 08:21] LABS: Calcium 8.4 mg/dl (8.5-10.1); Creatinine Clr Calc Pharmacy 86.6 ml/min; Est GFR (African American) 76.4; Potassium 3.3 mmol/L (3.5-5.1)
[2018-09-20] MEDS: POTASSIUM CHLORIDE 20 MEQ TABCR PO SCH ×2 (10:04→20:31)
--- NOTE | 2018-09-20 15:21 | Hospitalist Progress Note ---
Date of Service September 20, 2018 Assessment & Plan (1) CHF exacerbation: Acute on Chronic systolic CHF Hx of lasix use that was d/c'd during admission to [facility] [place] for CVA Continue bid IV lasix -continue higher dosage plus spironolactone Echo showed severely reduced systolic function of 30-35% and global hypokinesis and severely dilated ventricle. Right ventricle is severely dilated with moderately reduced right ventricular systolic function. Severe biatrial dilatation. Bioprosthetic aortic valve. Compared to previous study 08/15/10 systolic function has improved. However a 2016 echo showed an EF of 55% Chest CT without pulmonary embolus. Did show pleural effusions and CHF as well as upper abdominal ascites (2) GI bleed: Continues with with iron supplementation Pt declining transfusion due to Jehoviah's Witness beliefs (3) Afib: Eliquis was held on last d/c due to GIB Pt wished to continue with aspirin 81mg, Coreg to rate control his A.fib Not anticoagulated at this time due to high risk for bleed and inability to transfuse due to his baptist beliefs (4) Elevated troponin: Secondary to demand ischemia Troponin peaked at 0.131 and trended down (5) Rectal adenocarcinoma: Follows with Dr. Nieto -continues to be unable to lay flat for initial imaging for XRT (6) DM type 2 (diabetes mellitus, type 2): Continue SSI, levemir (7) Aortic stenosis: As noted above with CHF (8) Nonischemic cardiomyopathy: continue home carvedilol, spironolactone (9) HLD (hyperlipidemia): continue home simvastatin (10) HTN (hypertension): as above (11) Urinary retention: continue home tamsulosin (12) Seizure: continue home Keppra (13) Hypokalemia: Replete (14) CVA (cerebral vascular accident): In July, at [facility] [place] Completed rehab Continue statin, ASA (15) CKD (chronic kidney disease) stage 2, GFR 60-89 ml/min: (16) DVT prophylaxis: SCDs, holding chemoprophylaxis as discussed above Subjective Patient states he feels better today his biggest issue is unable to lay flat this prohibits him from an venous simulation and radiation therapy to treat his malignancy. Patient feels he is slightly better than yesterday and continues to have attempted diuresis to remedy his significant lower extremity swelling and as mentioned orthopnea Review of Systems ROS: well nourished well developed. No double vision blurry vision No problems with speech or swallowing No palpitations, chest pain or pressure Pain on exertion No abdominal pain nausea vomiting diarrhea changes in appetite or weight No burning urine urine frequency or changes in color No focal joint pain or muscle pain significant peripheral edema No skin rashes or oral lesions No unusual bruising or bleeding No focused back pain or numbness or loss of strength No changes in memory or confusion Physical Exam Vital Signs (Past 24 Hours): Last Vital Signs Temp 36.4 C L 09/20/18 13:18 Pulse 66 09/20/18 13:18 Resp 18 09/20/18 13:18 BP 105/66 09/20/18 13:18 Pulse Ox 98 09/20/18 13:18 the patient appeared well nourished and normally developed. Vital signs as documented. Head exam is unremarkable. normocephalic, atraumatic Neck is with minor jugular venous distension, thyromegaly, or lymphademopathy Lungs are clear to auscultation reduced breath sounds at the bases Cardiac exam reveals Rhythm is regular. Systolic ejection murmur first and second heart sounds normal. Abdominal exam reveals normal bowel sounds, no masses, no organomegaly Extremities are moderately edematous laterally to thigh Neurologic exam is A&Ox3, no focal deficits, strength is equal bilateral Psychologically seems neither anxious or depressed Skin is warm Dry without bruises or lesions (1) CHF exacerbation Heart failure type: unspecified Qualified Code(s): I50.9 - Heart failure, unspecified (2) GI bleed GI bleed type/associated pathology: unspecified gastrointestinal hemorrhage type Qualified Code(s): K92.2 - Gastrointestinal hemorrhage, unspecified (3) Afib Atrial fibrillation type: chronic Qualified Code(s): I48.2 - Chronic atrial fibrillation (4) DM type 2 (diabetes mellitus, type 2) 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 use: with snf use Diabetes mellitus complication status: without complication Qualified Code(s): E11.9 - Type 2 diabetes mellitus without complications; Z79.4 - residential (current) use of insulin (5) Aortic stenosis Cardiac valve disease etiology: etiology unspecified Qualified Code(s): I35.0 - Nonrheumatic aortic (valve) stenosis (6) HLD (hyperlipidemia) Hyperlipidemia type: mixed hyperlipidemia Qualified Code(s): E78.2 - Mixed hyperlipidemia (7) HTN (hypertension) Hypertension type: essential hypertension Qualified Code(s): I10 - Essential (primary) hypertension (8) CVA (cerebral vascular accident) CVA mechanism: embolism Precerebral and cerebral artery: middle cerebral artery Laterality of affected vessel: left Qualified Code(s): I63.412 - Cerebr al infarction due to embolism of left middle cerebral artery
[2018-09-20] MEDS: SIMVASTATIN 20 MG TAB PO SCH (20:30)
[2018-09-20] MEDS: TAMSULOSIN HCL 0.4 MG CAP PO SCH (20:31)
[2018-09-20] MEDS: INSULIN DETEMIR FLEXPEN/FLEX TOUCH 100 UNITS/ML 3ML SQ SCH (20:34)
[2018-09-21] MEDS: ACETAMINOPHEN 325 MG TAB PO PRN (04:14)
[2018-09-21 07:45] LABS: Hematocrit (blood only) 32.9 % (42-52); Hemoglobin 9.6 g/dL (14.0-18.0); Mean Corpuscular Hgb Conc 29.2 g/dL (32-36); Mean Corpuscular Volume 82.9 fL (80-100); Mean Platelet Volume 10.1 fL (7.4-10.4); Platelet Count 233 K/uL (130-400); Red Blood Count 3.97 M/uL (4.7-6.1); White Blood Count 6.28 K/uL (4.8-10.8)
[2018-09-21] MEDS: POTASSIUM CHLORIDE 20 MEQ TABCR PO SCH (08:07)
[2018-09-21] MEDS: FERROUS SULFATE 325 MG TAB PO SCH ×3 (08:08→17:37)
[2018-09-21] MEDS: FUROSEMIDE 80 MG in SYRINGE 0 ML IV SCH ×2 (08:08→17:36)
[2018-09-21] MEDS: levETIRAcetam 500 MG TAB PO SCH ×2 (08:08→21:09)
[2018-09-21] MEDS: ASCORBIC ACID 500 MG TAB PO SCH (08:08)
[2018-09-21] MEDS: ASPIRIN 81 MG ECTAB PO SCH (08:09)
[2018-09-21] MEDS: FOLIC ACID 400 MCG TAB PO SCH (08:09)
[2018-09-21] MEDS: SPIRONOLACTONE 25 MG TAB PO SCH (08:09)
[2018-09-21] MEDS: OMEGA-3 (PURIFIED FISH OIL) 1 GM CAP PO SCH (08:09)
[2018-09-21] MEDS: CEROVITE ADV FORMULA TAB PO SCH (08:10)
[2018-09-21] MEDS: PANTOprazole 40 MG TAB PO SCH (08:10)
[2018-09-21] MEDS: CARVEDILOL 6.25 MG TAB PO SCH ×2 (08:10→21:08)
[2018-09-21] MEDS: HYDROCORTISONE HC 2.5% CRM 30GM TUBE EXT SCH ×2 (08:11→21:09)
[2018-09-21] MEDS: INSULIN ASPART 100 UNITS/ML 3 ML PEN SC SCH ×4 (08:12→21:10)
[2018-09-21 08:22] LABS: BUN Creatinine Ratio 15.5 (10-20); Calcium 8.4 mg/dl (8.5-10.1); Creatinine Clr Calc Pharmacy 87.5 ml/min; Est GFR (African American) 78.1; Est GFR (Non-African American) 67.4; Potassium 3.5 mmol/L (3.5-5.1)
--- NOTE | 2018-09-21 16:00 | Hospitalist Progress Note ---
Date of Service September 21, 2018 Assessment & Plan (1) CHF exacerbation: Acute on Chronic systolic CHF Hx of lasix use that was d/c'd during admission to [facility] [place] for CVA Continue bid IV lasix -continue higher dosage plus spironolactone Echo showed severely reduced systolic function of 30-35% and global hypokinesis and severely dilated ventricle. Right ventricle is severely dilated with moderately reduced right ventricular systolic function. Severe biatrial dilatation. Bioprosthetic aortic valve. Compared to previous study 08/15/10 systolic function has improved. However a 2016 echo showed an EF of 55% Chest CT without pulmonary embolus. Did show pleural effusions and CHF as well as upper abdominal ascites. Will continue to actively diurese patient. As patient continues to improve, will transfer him to med/surg with tele. (2) GI bleed: Continues with with iron supplementation Pt declining transfusion due to Jehoviah's Witness beliefs Hemoglobin however has remained stable. (3) Afib: Eliquis was held on last d/c due to GIB Pt wished to continue with aspirin 81mg, Coreg to rate control his A.fib Not anticoagulated at this time due to high risk for bleed and inability to transfuse due to his oriental orthodox beliefs (4) Elevated troponin: Secondary to demand ischemia Troponin peaked at 0.131 and trended down (5) Rectal adenocarcinoma: Follows with Dr. Nieto -continues to be unable to lay flat for initial imaging for XRT (6) DM type 2 (diabetes mellitus, type 2): Continue SSI, levemir (7) Aortic stenosis: As noted above with CHF (8) Nonischemic cardiomyopathy: continue home carvedilol, spironolactone (9) HLD (hyperlipidemia): continue home simvastatin (10) HTN (hypertension): as above (11) Urinary retention: continue home tamsulosin (12) Seizure: continue home Keppra (13) Hypokalemia: Replete (14) CVA (cerebral vascular accident): In July, at [facility] [place] Completed rehab Continue statin, ASA (15) CKD (chronic kidney disease) stage 2, GFR 60-89 ml/min: (16) DVT prophylaxis: SCDs, holding chemoprophylaxis as discussed above Spent 35 minutes in management of patient, this included chart review. Subjective Patient states he continues to have orthopnea, but it is improving today. His main complaint is the swelling in his legs, but this is also improving. Patient reports that his main goal is to return to his dry weight prior to discharge as he has required readmissions in the past. ROS: well nourished well developed. No double vision blurry vision No problems with speech or swallowing No palpitations, chest pain or pressure No abdominal pain nausea vomiting diarrhea changes in appetite or weight No burning urine urine frequency or changes in color No focal joint pain or muscle pain significant peripheral edema No skin rashes or oral lesions No unusual bruising or bleeding No focused back pain or numbness or loss of strength No changes in memory or confusion Physical Exam Vital Signs (Past 24 Hours): Last Vital Signs Temp 36.6 C 09/21/18 15:00 Pulse 64 09/21/18 15:00 Resp 17 09/21/18 15:00 BP 89/52 L 09/21/18 15:00 Pulse Ox 91 09/21/18 15:00 Physical Exam: The patient appeared well nourished and normally developed. Vital signs as documented. Head exam is unremarkable. normocephalic, atraumatic Neck: mild jugular venous distension, no thyromegaly, or lymphademopathy Lungs are clear to auscultation reduced breath sounds at the bases Cardiac exam reveals Rhythm is regular. Systolic ejection murmur first and second heart sounds normal. Abdominal exam reveals normal bowel sounds, no masses, no organomegaly Extremities are moderately edematous laterally to thigh Neurologic exam is A&Ox3, no focal deficits, strength is equal bilateral Psychologically seems neither anxious or depressed Skin is warm Dry without bruises or lesions (1) CHF exacerbation Heart failure type: unspecified Qualified Code(s): I50.9 - Heart failure, unspecified (2) GI bleed GI bleed type/associated pathology: unspecified gastrointestinal hemorrhage type Qualified Code(s): K92.2 - Gastrointestinal hemorrhage, unspecified (3) DM type 2 (diabetes mellitus, type 2) Diabetes mellitus complication status: without complication 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 insulin use: with fdc use Qualified Code(s): E11.9 - Type 2 diabetes mellitus without complications; Z79.4 - intermediate (current) use of insulin (4) Aortic stenosis Cardiac valve disease etiology: etiology unspecified Qualified Code(s): I35.0 - Nonrheumatic aortic (valve) stenosis (5) Afib Atrial fibrillation type: chronic Qualified Code(s): I48.2 - Chronic atrial fibrillation (6) HLD (hyperlipidemia) Hyperlipidemia type: mixed hyperlipidemia Qualified Code(s): E78.2 - Mixed hyperlipidemia (7) HTN (hypertension) Hypertension type: essential hypertension Qualified Code(s): I10 - Essential (primary) hypertension (8) CVA (cerebral vascular accident) CVA mechanism: embolism Laterality of affected vessel: left Precerebral and cerebral artery: middle cerebral artery Qualified Code(s): I63.412 - Cerebral infarction due to embolism of left middle cerebral artery
--- NOTE | 2018-09-21 16:37 | Cardiology Progress Note ---
Date of Service September 21, 2018 Assessment & Plan (1) CHF exacerbation: His symptoms are improved. Continues to have significant lower extremity edema. His lung examination is improved. He continues to diurese well on 80 mg of Lasix twice daily. Renal function electrolytes appear stable. Some point will have to transition back to an oral regimen. He will need continued diuresis even as an outpatient but I think is getting close to discharge in that regard. (2) H/O aortic valve replacement: Echocardiogram demonstrated normal function of his bioprosthetic aortic valve (3) Nonischemic cardiomyopathy: His overall LV function has waxed and waned over the past few years. Continuing to monitor his hemodynamics. There may be an opportunity for addition of an JOSÉ ANTONIO-inhibitor prior to discharge. He continues to be mildly hypotensive. Continue beta blockade and spironolactone. (4) Afib: Rate controlled. No symptoms. Previously he was on anticoagulation but this has been discontinued due to gastrointestinal hemorrhage and the concern over repeat hemorrhage. He did have a recent cerebral vascular accident likely related to his atrial fibrillation. However, at this point the risks of anticoagulation appear to outweigh the benefits. Subjective This afternoon the patient claims to be feeling well. He feels that his lower extremity edema is improved slightly but still present. He has been ambulatory without symptoms. He denies significant breathing difficulty. He denies any dizziness or lightheadedness. Physical Exam Vital Signs (Past 24 Hours): Last Vital Signs Temp 36.6 C 09/21/18 16:01 Pulse 64 09/21/18 16:01 Resp 17 09/21/18 16:01 BP 89/52 L 09/21/18 16:01 Pulse Ox 91 09/21/18 16:01 Physical Exam: The patient is alert and oriented. Mood and affect appeared normal. He answered all questions appropriately. Morbidly obese. Using supplemental oxygen. HEENT: Pupils are equal and reactive to light and accommodation. Extraocular movements are intact. The sclerae are anicteric. Neuro: Cranial nerves intact Neck: Patient's neck is supple. He has palpable carotid pulses bilaterally without bruits on auscultation. There is no evidence of jugular venous distention. The thyroid is not enlarged. Lungs: Clear to auscultation bilaterally. He has good air movement without use of accessory muscles. No rales wheezes or rhonchi. Cardiac: Heart demonstrates an irregular rate and rhythm. Normal S1 and S2. No murmurs on examination. Pulses: The patient has palpable radial pulses bilaterally that are equal in intensity Extremities: There was no evidence of hypoperfusion. There is no cyanosis or clubbing. Severe lower extremity edema. Skin: I did not appreciate any rashes on examination today. Results & Data Laboratory Results Abnormal Lab Results 09/20/18 09/21/18 09/21/18 20:20 07:25 07:30 WBC 6.28 RBC 3.97 L Hgb 9.6 L Hct 32.9 L MCV 82.9 MCH 24.2 L MCHC 29.2 L RDW Std Deviation 57.0 H RDW Coeff of Amandeep 19.0 H Plt Count 233 MPV 10.1 Sodium Potassium Chloride Carbon Dioxide Anion Gap BUN Creatinine Est Cr Clr Drug Dosing Est GFR ( Amer) Est GFR (Non-Af Amer) BUN/Creatinine Ratio Glucose POC Glucose 103 H 117 H Calcium 09/21/18 09/21/18 09/21/18 07:30 11:48 16:26 WBC RBC Hgb Hct MCV MCH MCHC RDW Std Deviation RDW Coeff of Amandeep Plt Count MPV Sodium 140 Potassium 3.5 Chloride 98 Carbon Dioxide 37 H Anion Gap 4.0 BUN 17 Creatinine 1.11 Est Cr Clr Drug Dosing 87.5 Est GFR ( Amer) 78.1 Est GFR (Non-Af Amer) 67.4 BUN/Creatinine Ratio 15.5 Glucose 106 H POC Glucose 146 H 119 H Calcium 8.4 L (1) CHF exacerbation Heart failure type: unspecified Qualified Code(s): I50.9 - Heart failure, unspecified (2) Afib Atrial fibrillation type: chronic Qualified Code(s): I48.2 - Chronic atrial fibrillation
[2018-09-21] MEDS: TAMSULOSIN HCL 0.4 MG CAP PO SCH (21:09)
[2018-09-21] MEDS: SIMVASTATIN 20 MG TAB PO SCH (21:10)
[2018-09-21] MEDS: INSULIN DETEMIR FLEXPEN/FLEX TOUCH 100 UNITS/ML 3ML SQ SCH (21:10)
[2018-09-22 07:12] LABS: Hematocrit (blood only) 33.6 % (42-52); Hemoglobin 9.8 g/dL (14.0-18.0); Mean Corpuscular Hgb Conc 29.2 g/dL (32-36); Mean Platelet Volume 10.6 fL (7.4-10.4); Platelet Count 218 K/uL (130-400); RDW Coefficient of Variation 19.4 % (11.5-14.5); RDW Standard Deviation 58.2 fL (36.4-46.3); Red Blood Count 4.05 M/uL (4.7-6.1); White Blood Count 6.69 K/uL (4.8-10.8)
[2018-09-22] MEDS: levETIRAcetam 500 MG TAB PO SCH ×2 (07:44→21:14)
[2018-09-22] MEDS: PANTOprazole 40 MG TAB PO SCH (07:44)
[2018-09-22] MEDS: CARVEDILOL 6.25 MG TAB PO SCH ×2 (07:44→21:14)
[2018-09-22] MEDS: CEROVITE ADV FORMULA TAB PO SCH (07:44)
[2018-09-22] MEDS: FERROUS SULFATE 325 MG TAB PO SCH ×3 (07:45→17:37)
[2018-09-22] MEDS: OMEGA-3 (PURIFIED FISH OIL) 1 GM CAP PO SCH (07:45)
[2018-09-22] MEDS: ASCORBIC ACID 500 MG TAB PO SCH (07:45)
[2018-09-22] MEDS: SPIRONOLACTONE 25 MG TAB PO SCH (07:45)
[2018-09-22] MEDS: ASPIRIN 81 MG ECTAB PO SCH (07:45)
[2018-09-22 07:47] LABS: BUN Creatinine Ratio 16.4 (10-20); Calcium 8.4 mg/dl (8.5-10.1); Est GFR (African American) 75.6; Est GFR (Non-African American) 65.3; Potassium 3.3 mmol/L (3.5-5.1)
[2018-09-22] MEDS: HYDROCORTISONE HC 2.5% CRM 30GM TUBE EXT SCH ×2 (07:47→21:15)
[2018-09-22] MEDS: INSULIN ASPART 100 UNITS/ML 3 ML PEN SC SCH ×4 (08:32→21:13)
[2018-09-22] MEDS: FOLIC ACID 400 MCG TAB PO SCH (08:33)
[2018-09-22] MEDS: FUROSEMIDE 80 MG in SYRINGE 0 ML IV SCH ×2 (08:35→17:38)
[2018-09-22] MEDS: POTASSIUM CHLORIDE 20 MEQ TABCR PO SCH ×2 (10:34→21:15)
[2018-09-22] MEDS: ACETAMINOPHEN 325 MG TAB PO PRN (13:59)
[2018-09-22] MEDS: INSULIN DETEMIR FLEXPEN/FLEX TOUCH 100 UNITS/ML 3ML SQ SCH (21:13)
[2018-09-22] MEDS: SIMVASTATIN 20 MG TAB PO SCH (21:14)
[2018-09-22] MEDS: TAMSULOSIN HCL 0.4 MG CAP PO SCH (21:14)
--- NOTE | 2018-09-22 23:54 | Hospitalist Progress Note ---
Date of Service September 22, 2018 Assessment & Plan (1) CHF exacerbation: Acute on Chronic systolic CHF Hx of lasix use that was d/c'd during admission to [facility] [place] for CVA Continue bid IV lasix -continue higher dosage plus spironolactone Echo showed severely reduced systolic function of 30-35% and global hypokinesis and severely dilated ventricle. Right ventricle is severely dilated with moderately reduced right ventricular systolic function. Severe biatrial dilatation. Bioprosthetic aortic valve. Compared to previous study 08/15/10 systolic function has improved. However a 2016 echo showed an EF of 55% Chest CT without pulmonary embolus. Did show pleural effusions and CHF as well as upper abdominal ascites. Will continue to actively diurese patient, PATIENT is about 2.9 liters negative during hospital stay. Patient also continues to require 2 liters nasal cannula. (09/22) (2) GI bleed: Continues with with iron supplementation Pt declining transfusion due to Jehoviah's Witness beliefs Hemoglobin however has remained stable. (09/22) (3) Afib: Eliquis was held on last d/c due to GIB Pt wished to continue with aspirin 81mg, Coreg to rate control his A.fib Not anticoagulated at this time due to high risk for bleed and inability to transfuse due to his lutheran beliefs (4) Elevated troponin: Secondary to demand ischemia Troponin peaked at 0.131 and trended down (5) Rectal adenocarcinoma: Follows with Dr. Nieto -continues to be unable to lay flat for initial imaging for XRT (6) DM type 2 (diabetes mellitus, type 2): Continue SSI, levemir (7) Aortic stenosis: As noted above with CHF (8) Nonischemic cardiomyopathy: continue home carvedilol, spironolactone (9) HLD (hyperlipidemia): continue home simvastatin (10) HTN (hypertension): as above (11) Urinary retention: continue home tamsulosin (12) Seizure: continue home Keppra (13) Hypokalemia: Replete (14) CVA (cerebral vascular accident): In July, at [facility] [place] Completed rehab Continue statin, ASA (15) CKD (chronic kidney disease) stage 2, GFR 60-89 ml/min: (16) DVT prophylaxis: SCDs, holding chemoprophylaxis as discussed above Subjective Patient is lying in bed. Patient denies any new complaints. He continues to have swelling of his legs. ROS: well nourished well developed. No double vision blurry vision No problems with speech or swallowing No palpitations, chest pain or pressure No abdominal pain nausea vomiting diarrhea changes in appetite or weight No burning urine urine frequency or changes in color No focal joint pain or muscle pain significant peripheral edema No skin rashes or oral lesions No unusual bruising or bleeding No focused back pain or numbness or loss of strength No changes in memory or confusion Physical Exam Vital Signs (Past 24 Hours): Last Vital Signs Temp 36.8 C 09/22/18 23:03 Pulse 66 09/22/18 23:03 Resp 18 09/22/18 23:03 BP 98/59 L 09/22/18 23:03 Pulse Ox 91 09/22/18 23:03 Physical Exam: The patient appeared well nourished and normally developed. Vital signs as documented. Head exam is unremarkable, normocephalic, atraumatic. Neck is with minor jugular venous distension, thyromegaly, or lymphademopathy Lungs are clear to auscultation reduced breath sounds at the bases Cardiac exam reveals Rhythm is regular. Systolic ejection murmur first and second heart sounds normal. Abdominal exam reveals normal bowel sounds, no masses, no organomegaly Extremities are moderately edematous laterally to thigh Neurologic exam is A&Ox3, no focal deficits, strength is equal bilateral Psychologically seems neither anxious or depressed Skin is warm Dry without bruises or lesions (1) CHF exacerbation Heart failure type: unspecified Qualified Code(s): I50.9 - Heart failure, unspecified (2) GI bleed GI bleed type/associated pathology: unspecified gastrointestinal hemorrhage type Qualified Code(s): K92.2 - Gastrointestinal hemorrhage, unspecified (3) Afib Atrial fibrillation type: chronic Qualified Code(s): I48.2 - Chronic atrial fibrillation (4) DM type 2 (diabetes mellitus, type 2) Diabetes mellitus detention insulin use: with intermodal owner operator truck driver use Diabetes mellitus complication status: without complication Qualified Code(s): E11.9 - Type 2 diabetes mellitus without complications; Z79.4 - extermination inspector (current) use of insulin (5) Aortic stenosis Cardiac valve disease etiology: etiology unspecified Qualified Code(s): I35.0 - Nonrheumatic aortic (valve) stenosis (6) HLD (hyperlipidemia) Hyperlipidemia type: mixed hyperlipidemia Qualified Code(s): E78.2 - Mixed hyperlipidemia (7) HTN (hypertension) Hypertension type: essential hypertension Qualified Code(s): I10 - Essential (primary) hypertension (8) CVA (cerebral vascular accident) CVA mechanism: embolism Precerebral and cerebral artery: middle cerebral artery Laterality of affected vessel: left Qualified Code(s): I63.412 - Cerebral infarction due to embolism of left middle cerebral artery
[2018-09-23 07:17] LABS: Hematocrit (blood only) 33.8 % (42-52); Hemoglobin 9.9 g/dL (14.0-18.0); Mean Corpuscular Hgb Conc 29.3 g/dL (32-36); Mean Corpuscular Volume 83.5 fL (80-100); Mean Platelet Volume 10.1 fL (7.4-10.4); Platelet Count 224 K/uL (130-400); RDW Coefficient of Variation 19.8 % (11.5-14.5); Red Blood Count 4.05 M/uL (4.7-6.1); White Blood Count 6.36 K/uL (4.8-10.8)
[2018-09-23] MEDS: FERROUS SULFATE 325 MG TAB PO SCH ×3 (08:25→18:14)
[2018-09-23] MEDS: SPIRONOLACTONE 25 MG TAB PO SCH (08:25)
[2018-09-23] MEDS: POTASSIUM CHLORIDE 20 MEQ TABCR PO SCH (08:25)
[2018-09-23] MEDS: FOLIC ACID 400 MCG TAB PO SCH (08:26)
[2018-09-23] MEDS: OMEGA-3 (PURIFIED FISH OIL) 1 GM CAP PO SCH (08:26)
[2018-09-23] MEDS: levETIRAcetam 500 MG TAB PO SCH ×2 (08:26→21:11)
[2018-09-23] MEDS: ASPIRIN 81 MG ECTAB PO SCH (08:26)
[2018-09-23] MEDS: CARVEDILOL 6.25 MG TAB PO SCH ×2 (08:27→21:08)
[2018-09-23] MEDS: ASCORBIC ACID 500 MG TAB PO SCH (08:27)
[2018-09-23] MEDS: PANTOprazole 40 MG TAB PO SCH (08:27)
[2018-09-23] MEDS: CEROVITE ADV FORMULA TAB PO SCH (08:27)
[2018-09-23] MEDS: HYDROCORTISONE HC 2.5% CRM 30GM TUBE EXT SCH ×2 (08:28→21:18)
[2018-09-23] MEDS: INSULIN ASPART 100 UNITS/ML 3 ML PEN SC SCH ×4 (08:29→21:11)
[2018-09-23] MEDS: FUROSEMIDE 80 MG in SYRINGE 0 ML IV SCH ×2 (08:30→18:13)
[2018-09-23] MEDS: CARBOHYDRATES FOR HYPOGLYCEMIA PO PRN ×2 (16:30→16:51)
[2018-09-23] MEDS: INSULIN DETEMIR FLEXPEN/FLEX TOUCH 100 UNITS/ML 3ML SQ SCH (21:07)
[2018-09-23] MEDS: SIMVASTATIN 20 MG TAB PO SCH (21:08)
[2018-09-23] MEDS: TAMSULOSIN HCL 0.4 MG CAP PO SCH (21:10)
--- NOTE | 2018-09-23 23:17 | Hospitalist Progress Note ---
Date of Service September 23, 2018 Assessment & Plan (1) CHF exacerbation: Acute on Chronic systolic CHF Hx of lasix use that was d/c'd during admission to [facility] [place] for CVA Continue bid IV lasix -continue higher dosage plus spironolactone Echo showed severely reduced systolic function of 30-35% and global hypokinesis and severely dilated ventricle. Right ventricle is severely dilated with moderately reduced right ventricular systolic function. Severe biatrial dilatation. Bioprosthetic aortic valve. Compared to previous study 08/15/10 systolic function has improved. However a 2016 echo showed an EF of 55% Chest CT without pulmonary embolus. Did show pleural effusions and CHF as well as upper abdominal ascites. Will continue to actively diurese patient, PATIENT is about 3.3 liters negative during hospital stay. Patient intermittently requires 2 liters nasal cannula. (09/23) Will continue to diurese. (2) GI bleed: Continues with with iron supplementation Pt declining transfusion due to Jehoviah's Witness beliefs Hemoglobin however has remained stable. (09/23) (3) Afib: Eliquis was held on last d/c due to GIB Pt wished to continue with aspirin 81mg, Coreg to rate control his A.fib Not anticoagulated at this time due to high risk for bleed and inability to transfuse due to his sikhism beliefs (4) Elevated troponin: Secondary to demand ischemia Troponin peaked at 0.131 and trended down (5) Rectal adenocarcinoma: Follows with Dr. Nieto -continues to be unable to lay flat for initial imaging for XRT (6) DM type 2 (diabetes mellitus, type 2): Continue SSI, levemir (7) Aortic stenosis: As noted above with CHF (8) Nonischemic cardiomyopathy: continue home carvedilol, spironolactone (9) HLD (hyperlipidemia): continue home simvastatin (10) HTN (hypertension): as above (11) Urinary retention: continue home tamsulosin (12) Seizure: continue home Keppra (13) Hypokalemia: Replete (14) CVA (cerebral vascular accident): In July, at [facility] Completed rehab Continue statin, ASA (15) CKD (chronic kidney disease) stage 2, GFR 60-89 ml/min: (16) DVT prophylaxis: SCDs, holding chemoprophylaxis as discussed above Spent 25 minutes in management of patient. Subjective Patient is sitting at bedside. Patient denies any new complaints. He continues to have swelling of his legs. ROS: well nourished well developed. No double vision blurry vision No problems with speech or swallowing No palpitations, chest pain or pressure No abdominal pain nausea vomiting diarrhea changes in appetite or weight No burning urine urine frequency or changes in color No focal joint pain or muscle pain significant peripheral edema No skin rashes or oral lesions No unusual bruising or bleeding No focused back pain or numbness or loss of strength No changes in memory or confusion Physical Exam Vital Signs (Past 24 Hours): Last Vital Signs Temp 36.7 C 09/23/18 19:24 Pulse 66 09/23/18 19:24 Resp 20 09/23/18 19:24 BP 98/63 L 09/23/18 19:24 Pulse Ox 97 09/23/18 19:24 Physical Exam: The patient appeared well nourished and normally developed. Vital signs as documented. Head exam is unremarkable, normocephalic, atraumatic. Neck is with minor jugular venous distension, thyromegaly, or lymphademopathy Lungs are clear to auscultation reduced breath sounds at the bases Cardiac exam reveals Rhythm is regular. Systolic ejection murmur first and second heart sounds normal. Abdominal exam reveals normal bowel sounds, no masses, no organomegaly Extremities are moderately edematous laterally to thigh Neurologic exam is A&Ox3, no focal deficits, strength is equal bilateral Psychologically seems neither anxious or depressed Skin is warm Dry without bruises or lesions (1) CHF exacerbation Heart failure type: unspecified Qualified Code(s): I50.9 - Heart failure, unspecified (2) GI bleed GI bleed type/associated pathology: unspecified gastrointestinal hemorrhage type Qualified Code(s): K92.2 - Gastrointestinal hemorrhage, unspecified (3) DM type 2 (diabetes mellitus, type 2) Diabetes mellitus complication status: without complication Diabetes mellitus care home insulin use: with terminal supervisor use Qualified Code(s): E11.9 - Type 2 diabetes mellitus without complications; Z79.4 - dedicated intermodal truck driver (current) use of insulin (4) Aortic stenosis Cardiac valve disease etiology: etiology unspecified Qualified Code(s): I35.0 - Nonrheumatic aortic (valve) stenosis (5) Afib Atrial fibrillation type: chronic Qualified Code(s): I48.2 - Chronic atrial fibrillation (6) HLD (hyperlipidemia) Hyperlipidemia type: mixed hyperlipidemia Qualified Code(s): E78.2 - Mixed hyperlipidemia (7) HTN (hypertension) Hypertension type: essential hypertension Qualified Code(s): I10 - Essential (primary) hypertension (8) CVA (cerebral vascular accident) CVA mechanism: embolism Laterality of affected vessel: left Precerebral and cerebral artery: middle cerebral artery Qualified Code(s): I63.412 - Cerebral infarction due to embolism of left middle cerebral artery
[2018-09-24] MEDS: ACETAMINOPHEN 325 MG TAB PO PRN (00:08)
[2018-09-24] MEDS: SPIRONOLACTONE 25 MG TAB PO SCH (08:25)
[2018-09-24] MEDS: ASCORBIC ACID 500 MG TAB PO SCH (08:25)
[2018-09-24] MEDS: levETIRAcetam 500 MG TAB PO SCH ×2 (08:25→20:29)
[2018-09-24] MEDS: FUROSEMIDE 80 MG in SYRINGE 0 ML IV SCH ×2 (08:25→17:45)
[2018-09-24] MEDS: ASPIRIN 81 MG ECTAB PO SCH (08:25)
[2018-09-24] MEDS: PANTOprazole 40 MG TAB PO SCH (08:26)
[2018-09-24] MEDS: CEROVITE ADV FORMULA TAB PO SCH (08:26)
[2018-09-24] MEDS: OMEGA-3 (PURIFIED FISH OIL) 1 GM CAP PO SCH (08:26)
[2018-09-24] MEDS: FERROUS SULFATE 325 MG TAB PO SCH ×3 (08:26→17:45)
[2018-09-24] MEDS: CARVEDILOL 6.25 MG TAB PO SCH ×2 (08:26→20:30)
[2018-09-24] MEDS: FOLIC ACID 400 MCG TAB PO SCH (08:26)
[2018-09-24] MEDS: HYDROCORTISONE HC 2.5% CRM 30GM TUBE EXT SCH ×2 (08:28→20:42)
[2018-09-24] MEDS: INSULIN ASPART 100 UNITS/ML 3 ML PEN SC SCH ×4 (08:29→20:41)
[2018-09-24] MEDS: CARBOHYDRATES FOR HYPOGLYCEMIA PO PRN (16:44)
[2018-09-24] MEDS: SIMVASTATIN 20 MG TAB PO SCH (20:29)
[2018-09-24] MEDS: TAMSULOSIN HCL 0.4 MG CAP PO SCH (20:30)
[2018-09-24] MEDS: INSULIN DETEMIR FLEXPEN/FLEX TOUCH 100 UNITS/ML 3ML SQ SCH (20:32)
--- NOTE | 2018-09-24 23:09 | Hospitalist Progress Note ---
Date of Service September 24, 2018 Assessment & Plan (1) CHF exacerbation: Acute on Chronic systolic CHF Hx of lasix use that was d/c'd during admission to [facility] for [place]A Continue bid IV lasix -continue higher dosage plus spironolactone Echo showed severely reduced systolic function of 30-35% and global hypokinesis and severely dilated ventricle. Right ventricle is severely dilated with moderately reduced right ventricular systolic function. Severe biatrial dilatation. Bioprosthetic aortic valve. Compared to previous study 08/15/10 systolic function has improved. However a 2016 echo showed an EF of 55% Chest CT without pulmonary embolus. Did show pleural effusions and CHF as well as upper abdominal ascites. Will continue to actively diurese patient, PATIENT is about 4 liters negative during hospital stay. Patien is now on room air. Will continue to diurese until we reach patient's dry weight, or until creatinine bumps. (2) GI bleed: Continues with with iron supplementation Pt declining transfusion due to Jehoviah's Witness beliefs Hemoglobin however has remained stable. (09/24) (3) Afib: Eliquis was held on last d/c due to GIB Pt wished to continue with aspirin 81mg, Coreg to rate control his A.fib Not anticoagulated at this time due to high risk for bleed and inability to transfuse due to his mormon beliefs (4) Elevated troponin: Secondary to demand ischemia Troponin peaked at 0.131 and trended down (5) Rectal adenocarcinoma: Follows with Dr. Nieto -continues to be unable to lay flat for initial imaging for XRT (6) DM type 2 (diabetes mellitus, type 2): Continue SSI, levemir (7) Aortic stenosis: As noted above with CHF (8) Nonischemic cardiomyopathy: continue home carvedilol, spironolactone (9) HLD (hyperlipidemia): continue home simvastatin (10) HTN (hypertension): as above (11) Urinary retention: continue home tamsulosin (12) Seizure: continue home Keppra (13) Hypokalemia: Replete (14) CVA (cerebral vascular accident): In July, at [facility] [place] Completed rehab Continue statin, ASA (15) CKD (chronic kidney disease) stage 2, GFR 60-89 ml/min: (16) DVT prophylaxis: SCDs, holding chemoprophylaxis as discussed above Spent 26 minutes in management of patient. Subjective Patient is sitting at bedside. Patient reports no complaints. He continues to have swelling of his legs. ROS: well nourished well developed. No double vision blurry vision No problems with speech or swallowing No palpitations, chest pain or pressure No abdominal pain nausea vomiting diarrhea changes in appetite or weight No burning urine urine frequency or changes in color No focal joint pain or muscle pain significant peripheral edema No skin rashes or oral lesions No unusual bruising or bleeding No focused back pain or numbness or loss of strength No changes in memory or confusion Physical Exam Vital Signs (Past 24 Hours): Last Vital Signs Temp 36.5 C 09/24/18 19:19 Pulse 69 09/24/18 19:19 Resp 20 09/24/18 19:19 BP 117/74 09/24/18 19:19 Pulse Ox 92 09/24/18 19:19 Physical Exam: The patient appeared well nourished and normally developed. Vital signs as documented. Head exam is unremarkable, normocephalic, atraumatic. Neck is with minor jugular venous distension, thyromegaly, or lymphademopathy Lungs are clear to auscultation reduced breath sounds at the bases Cardiac exam reveals Rhythm is regular. Systolic ejection murmur first and second heart sounds normal. Abdominal exam reveals normal bowel sounds, no masses, no organomegaly Extremities are moderately edematous laterally to thigh Neurologic exam is A&Ox3, no focal deficits, strength is equal bilateral Psychologically seems neither anxious or depressed Skin is warm Dry without bruises or lesions (1) CHF exacerbation Heart failure type: unspecified Qualified Code(s): I50.9 - Heart failure, unspecified (2) GI bleed GI bleed type/associated pathology: unspecified gastrointestinal hemorrhage type Qualified Code(s): K92.2 - Gastrointestinal hemorrhage, unspecified (3) DM type 2 (diabetes mellitus, type 2) Diabetes mellitus complication status: without complication Diabetes mellitus audiology assistant insulin use: with audiology assistant use Qualified Code(s): E11.9 - Type 2 diabetes mellitus without complications; Z79.4 - senior care (current) use of insulin (4) Aortic stenosis Cardiac valve disease etiology: etiology unspecified Qualified Code(s): I35.0 - Nonrheumatic aortic (valve) stenosis (5) Afib Atrial fibrillation type: chronic Qualified Code(s): I48.2 - Chronic atrial fibrillation (6) HLD (hyperlipidemia) Hyperlipidemia type: mixed hyperlipidemia Qualified Code(s): E78.2 - Mixed hyperlipidemia (7) HTN (hypertension) Hypertension type: essential hypertension Qualified Code(s): I10 - Essential (primary) hypertension (8) CVA (cerebral vascular accident) CVA mechanism: embolism Laterality of affected vessel: left Precerebral and cerebral artery: middle cerebral artery Qualified Code(s): I63.412 - Cerebral infarction due to embolism of left middle cerebral artery
[2018-09-25] MEDS: ACETAMINOPHEN 325 MG TAB PO PRN (00:18)
[2018-09-25 07:26] LABS: Basophils # (auto) 0.01 K/uL (0-0.2); Basophils % (auto) 0.2 %; Eosinophils # (auto) 0.25 K/uL (0-0.5); Eosinophils % (auto) 4.2 %; Hematocrit (blood only) 32.5 % (42-52); Hemoglobin 9.4 g/dL (14.0-18.0); Immature Granulocytes # (auto) 0.01 K/uL (0.00-0.02); Immature Granulocytes % (auto) 0.2 %; Lymphocytes # (auto) 2.05 K/uL (1.2-3.4); Lymphocytes % (auto) 34.5 %; Mean Corpuscular Hgb Conc 28.9 g/dL (32-36); Mean Corpuscular Volume 83.3 fL (80-100); Mean Platelet Volume 10.4 fL (7.4-10.4); Monocytes # (auto) 0.75 K/uL (0.11-0.59); Monocytes % (auto) 12.6 %; Neutrophils # (auto) 2.88 K/uL (1.4-6.5); Neutrophils % (auto) 48.3 %; Platelet Count 238 K/uL (130-400); RDW Coefficient of Variation 20.8 % (11.5-14.5); RDW Standard Deviation 62.7 fL (36.4-46.3); White Blood Count 5.95 K/uL (4.8-10.8)
[2018-09-25 07:47] LABS: BUN Creatinine Ratio 13.9 (10-20); Calcium 8.7 mg/dl (8.5-10.1); Creatinine Clr Calc Pharmacy 72.8 ml/min; Est GFR (African American) 63.9; Est GFR (Non-African American) 55.2; Potassium 3.3 mmol/L (3.5-5.1)
[2018-09-25 08:30] LABS: Anisocytosis Present; Hypochromasia Present; Polychromasia 1+
[2018-09-25] MEDS: FUROSEMIDE 80 MG in SYRINGE 0 ML IV SCH ×2 (09:10→17:47)
[2018-09-25] MEDS: ASCORBIC ACID 500 MG TAB PO SCH (09:10)
[2018-09-25] MEDS: CARVEDILOL 6.25 MG TAB PO SCH ×2 (09:11→20:30)
[2018-09-25] MEDS: CEROVITE ADV FORMULA TAB PO SCH (09:11)
[2018-09-25] MEDS: PANTOprazole 40 MG TAB PO SCH (09:11)
[2018-09-25] MEDS: FERROUS SULFATE 325 MG TAB PO SCH ×3 (09:11→17:47)
[2018-09-25] MEDS: SPIRONOLACTONE 25 MG TAB PO SCH (09:11)
[2018-09-25] MEDS: FOLIC ACID 400 MCG TAB PO SCH (09:11)
[2018-09-25] MEDS: ASPIRIN 81 MG ECTAB PO SCH (09:12)
[2018-09-25] MEDS: HYDROCORTISONE HC 2.5% CRM 30GM TUBE EXT SCH ×2 (09:12→20:32)
[2018-09-25] MEDS: OMEGA-3 (PURIFIED FISH OIL) 1 GM CAP PO SCH (09:12)
[2018-09-25] MEDS: levETIRAcetam 500 MG TAB PO SCH ×2 (09:12→20:31)
[2018-09-25] MEDS: INSULIN ASPART 100 UNITS/ML 3 ML PEN SC SCH ×4 (09:13→20:34)
[2018-09-25] MEDS: POTASSIUM CHLORIDE 20 MEQ TABCR PO SCH (20:29)
[2018-09-25] MEDS: SIMVASTATIN 20 MG TAB PO SCH (20:32)
[2018-09-25] MEDS: TAMSULOSIN HCL 0.4 MG CAP PO SCH (20:33)
[2018-09-25] MEDS: INSULIN DETEMIR FLEXPEN/FLEX TOUCH 100 UNITS/ML 3ML SQ SCH (20:35)
[2018-09-26 07:34] LABS: Hematocrit (blood only) 32.7 % (42-52); Hemoglobin 9.7 g/dL (14.0-18.0); Mean Corpuscular Hgb Conc 29.7 g/dL (32-36); Mean Platelet Volume 10.1 fL (7.4-10.4); Platelet Count 243 K/uL (130-400); RDW Coefficient of Variation 20.7 % (11.5-14.5); RDW Standard Deviation 61.4 fL (36.4-46.3); Red Blood Count 3.94 M/uL (4.7-6.1)
[2018-09-26 07:51] LABS: Calcium 8.6 mg/dl (8.5-10.1); Creatinine Clr Calc Pharmacy 89.9 ml/min; Est GFR (African American) 82.6; Est GFR (Non-African American) 71.3; Potassium 3.3 mmol/L (3.5-5.1)
[2018-09-26] MEDS: ASCORBIC ACID 500 MG TAB PO SCH (09:09)
[2018-09-26] MEDS: PANTOprazole 40 MG TAB PO SCH (09:15)
[2018-09-26] MEDS: CARVEDILOL 6.25 MG TAB PO SCH ×2 (09:15→21:37)
[2018-09-26] MEDS: FOLIC ACID 400 MCG TAB PO SCH (09:15)
[2018-09-26] MEDS: FUROSEMIDE 80 MG in SYRINGE 0 ML IV SCH ×2 (09:15→18:17)
[2018-09-26] MEDS: CEROVITE ADV FORMULA TAB PO SCH (09:15)
[2018-09-26] MEDS: POTASSIUM CHLORIDE 20 MEQ TABCR PO SCH ×2 (09:16→21:38)
[2018-09-26] MEDS: FERROUS SULFATE 325 MG TAB PO SCH ×3 (09:16→18:17)
[2018-09-26] MEDS: ASPIRIN 81 MG ECTAB PO SCH (09:16)
[2018-09-26] MEDS: SPIRONOLACTONE 25 MG TAB PO SCH (09:16)
[2018-09-26] MEDS: levETIRAcetam 500 MG TAB PO SCH ×2 (09:16→21:38)
[2018-09-26] MEDS: INSULIN ASPART 100 UNITS/ML 3 ML PEN SC SCH ×3 (09:17→18:41)
[2018-09-26] MEDS: OMEGA-3 (PURIFIED FISH OIL) 1 GM CAP PO SCH (09:17)
[2018-09-26] MEDS: HYDROCORTISONE HC 2.5% CRM 30GM TUBE EXT SCH ×2 (09:17→21:40)
--- NOTE | 2018-09-26 11:30 | Hospitalist Progress Note ---
Date of Service September 25, 2018 Assessment & Plan (1) CHF exacerbation: Acute on Chronic systolic CHF Hx of lasix use that was d/c'd during admission to [facility] for CVA Continue bid IV lasix -continue higher dosage plus spironolactone Echo showed severely reduced systolic function of 30-35% and global hypokinesis and severely dilated ventricle. Right ventricle is severely dilated with moderately reduced right ventricular systolic function. Severe biatrial dilatation. Bioprosthetic aortic valve. Compared to previous study 08/15/10 systolic function has improved. However a 2016 echo showed an EF of 55% Chest CT without pulmonary embolus. Did show pleural effusions and CHF as well as upper abdominal ascites. Will continue to actively diurese patient, PATIENT is about 5 liters negative during hospital stay. Patient is now on room air. Will continue to diurese until we reach patient's dry weight, or until creatinine bumps. (09/25) (2) GI bleed: Continues with with iron supplementation Pt declining transfusion due to Jehoviah's Witness beliefs Hemoglobin however has remained stable. (09/25) (3) Afib: Eliquis was held on last d/c due to GIB Pt wished to continue with aspirin 81mg, Coreg to rate control his A.fib Not anticoagulated at this time due to high risk for bleed and inability to transfuse due to his anabaptism beliefs (4) Elevated troponin: Secondary to demand ischemia Troponin peaked at 0.131 and trended down (5) Rectal adenocarcinoma: Follows with Dr. Nieto -continues to be unable to lay flat for initial imaging for XRT (6) DM type 2 (diabetes mellitus, type 2): Continue SSI, levemir (7) Aortic stenosis: As noted above with CHF (8) Nonischemic cardiomyopathy: continue home carvedilol, spironolactone (9) HLD (hyperlipidemia): continue home simvastatin (10) HTN (hypertension): as above (11) Urinary retention: continue home tamsulosin (12) Seizure: continue home Keppra (13) Hypokalemia: Replete (14) CVA (cerebral vascular accident): In July, tx at [facility] [place] Completed rehab Continue statin, ASA (15) CKD (chronic kidney disease) stage 2, GFR 60-89 ml/min: (16) DVT prophylaxis: SCDs, holding chemoprophylaxis as discussed above Spent 26 minutes in management of patient. Subjective 68 yo male reports feeling well. He has no new complaints. He continues to have swelling in lower extremities. he states he is having a good diuresis. Physical Exam Vital Signs (Past 24 Hours): Last Vital Signs Temp 36.8 C 09/25/18 11:16 Pulse 62 09/25/18 11:16 Resp 18 09/25/18 11:16 BP 104/62 09/25/18 11:16 Pulse Ox 94 09/25/18 11:16 Physical Exam: The patient appeared well nourished and normally developed. Vital signs as documented. Head exam is unremarkable, normocephalic, atraumatic. Neck is with minor jugular venous distension, thyromegaly, or lymphademopathy Lungs are clear to auscultation reduced breath sounds at the bases Cardiac exam reveals Rhythm is regular. Systolic ejection murmur first and second heart sounds normal. Abdominal exam reveals normal bowel sounds, no masses, no organomegaly Extremities are moderately edematous laterally to thigh Neurologic exam is A&Ox3, no focal deficits, strength is equal bilateral Psychologically seems neither anxious or depressed Skin is warm Dry without bruises or lesions (1) CHF exacerbation Heart failure type: unspecified Qualified Code(s): I50.9 - Heart failure, unspecified (2) GI bleed GI bleed type/associated pathology: unspecified gastrointestinal hemorrhage type Qualified Code(s): K92.2 - Gastrointestinal hemorrhage, unspecified (3) Afib Atrial fibrillation type: chronic Qualified Code(s): I48.2 - Chronic atrial fibrillation (4) DM type 2 (diabetes mellitus, type 2) Diabetes mellitus longterm insulin use: with long term care social worker use Diabetes mellitus complication status: without complication Qualified Code(s): E11.9 - Type 2 diabetes mellitus without complications; Z79.4 - nursing home (current) use of insulin (5) Aortic stenosis Cardiac valve disease etiology: etiology unspecified Qualified Code(s): I35.0 - Nonrheumatic aortic (valve) stenosis (6) HLD (hyperlipidemia) Hyperlipidemia type: mixed hyperlipidemia Qualified Code(s): E78.2 - Mixed hyperlipidemia (7) HTN (hypertension) Hypertension type: essential hypertension Qualified Code(s): I10 - Essential (primary) hypertension (8) CVA (cerebral vascular accident) CVA mechanism: embolism Precerebral and cerebral artery: middle cerebral artery Laterality of affected vessel: left Qualified Code(s): I63.412 - Cerebral infarction due to embolism of left middle cerebral artery
[2018-09-26] MEDS: CARBOHYDRATES FOR HYPOGLYCEMIA PO PRN (16:45)
[2018-09-26] MEDS: METFORMIN HCL ER 500 MG TABCR PO SCH (20:24)
[2018-09-26] MEDS: TAMSULOSIN HCL 0.4 MG CAP PO SCH (21:37)
[2018-09-26] MEDS: SIMVASTATIN 20 MG TAB PO SCH (21:38)
[2018-09-26] MEDS: INSULIN DETEMIR FLEXPEN/FLEX TOUCH 100 UNITS/ML 3ML SQ SCH (21:39)
--- NOTE | 2018-09-26 23:16 | Hospitalist Progress Note ---
Date of Service September 26, 2018 Assessment & Plan (1) CHF exacerbation: Acute on Chronic systolic CHF Hx of lasix use that was d/c'd during admission to [facility] [place] Continue bid IV lasix -continue higher dosage plus spironolactone Echo showed severely reduced systolic function of 30-35% and global hypokinesis and severely dilated ventricle. Right ventricle is severely dilated with moderately reduced right ventricular systolic function. Severe biatrial dilatation. Bioprosthetic aortic valve. Compared to previous study 08/15/10 systolic function has improved. However a 2016 echo showed an EF of 55% Chest CT without pulmonary embolus. Did show pleural effusions and CHF as well as upper abdominal ascites. Will continue to actively diurese patient, PATIENT is about 5 liters negative during hospital stay. Patient is now on room air. Will continue to diurese until we reach patient's dry weight, or until creatinine bumps. (09/26) (2) GI bleed: Continues with with iron supplementation Pt declining transfusion due to Jehoviah's Witness beliefs Hemoglobin however has remained stable. (09/26) (3) Afib: Eliquis was held on last d/c due to GIB Pt wished to continue with aspirin 81mg, Coreg to rate control his A.fib Not anticoagulated at this time due to high risk for bleed and inability to transfuse due to his nondenominational beliefs (4) Elevated troponin: Secondary to demand ischemia Troponin peaked at 0.131 and trended down (5) Rectal adenocarcinoma: Follows with Dr. Nieto -continues to be unable to lay flat for initial imaging for XRT (6) DM type 2 (diabetes mellitus, type 2): Continue SSI, levemir (7) Aortic stenosis: As noted above with CHF (8) Nonischemic cardiomyopathy: continue home carvedilol, spironolactone (9) HLD (hyperlipidemia): continue home simvastatin (10) HTN (hypertension): as above (11) Urinary retention: continue home tamsulosin (12) Seizure: continue home Keppra (13) Hypokalemia: Replete (14) CVA (cerebral vascular accident): In July, tx at [facility] [place] Completed rehab Continue statin, ASA (15) CKD (chronic kidney disease) stage 2, GFR 60-89 ml/min: (16) DVT prophylaxis: SCDs, holding chemoprophylaxis as discussed above Spent 27 minutes in management of patient. Subjective 68 yo male reports feeling well. He has no new complaints. He states he is able to lie flat for longer period of time. He continues to have swelling in lower extremities. he states he is having a good diuresis. Physical Exam Vital Signs (Past 24 Hours): Last Vital Signs Temp 36.8 C 09/26/18 19:05 Pulse 65 09/26/18 19:05 Resp 18 09/26/18 19:05 BP 112/69 09/26/18 19:05 Pulse Ox 91 09/26/18 19:05 Physical Exam: The patient appeared well nourished and normally developed. Vital signs as documented. Head exam is unremarkable, normocephalic, atraumatic. Neck is with minor jugular venous distension, thyromegaly, or lymphademopathy Lungs are clear to auscultation reduced breath sounds at the bases Cardiac exam reveals Rhythm is regular. Systolic ejection murmur first and second heart sounds normal. Abdominal exam reveals normal bowel sounds, no masses, no organomegaly Extremities are moderately edematous laterally to calf Neurologic exam is A&Ox3, no focal deficits, strength is equal bilateral Psychologically seems neither anxious or depressed Skin is warm Dry without bruises or lesions (1) CHF exacerbation Heart failure type: unspecified Qualified Code(s): I50.9 - Heart failure, unspecified (2) GI bleed GI bleed type/associated pathology: unspecified gastrointestinal hemorrhage type Qualified Code(s): K92.2 - Gastrointestinal hemorrhage, unspecified (3) DM type 2 (diabetes mellitus, type 2) Diabetes mellitus complication status: without complication Diabetes mellitus halfway insulin use: with continuous churn buttermaker use Qualified Code(s): E11.9 - Type 2 diabetes mellitus without complications; Z79.4 - exterminator helper (current) use of insulin (4) Aortic stenosis Cardiac valve disease etiology: etiology unspecified Qualified Code(s): I35.0 - Nonrheumatic aortic (valve) stenosis (5) Afib Atrial fibrillation type: chronic Qualified Code(s): I48.2 - Chronic atrial fibrillation (6) HLD (hyperlipidemia) Hyperlipidemia type: mixed hyperlipidemia Qualified Code(s): E78.2 - Mixed hyperlipidemia (7) HTN (hypertension) Hypertension type: essential hypertension Qualified Code(s): I10 - Essential (primary) hypertension (8) CVA (cerebral vascular accident) CVA mechanism: embolism Laterality of affected vessel: left Precerebral and cerebral artery: middle cerebral artery Qualified Code(s): I63.412 - Cerebral infarction due to embolism of left middle cerebral artery
[2018-09-27 07:32] LABS: Hematocrit (blood only) 34.8 % (42-52); Hemoglobin 10.2 g/dL (14.0-18.0); Mean Corpuscular Hgb Conc 29.3 g/dL (32-36); Mean Corpuscular Volume 84.5 fL (80-100); Mean Platelet Volume 10.3 fL (7.4-10.4); Platelet Count 244 K/uL (130-400); RDW Coefficient of Variation 21.3 % (11.5-14.5); RDW Standard Deviation 64.6 fL (36.4-46.3); Red Blood Count 4.12 M/uL (4.7-6.1); White Blood Count 6.75 K/uL (4.8-10.8)
[2018-09-27] MEDS: CARVEDILOL 6.25 MG TAB PO SCH ×2 (08:01→21:11)
[2018-09-27] MEDS: METFORMIN HCL ER 500 MG TABCR PO SCH ×2 (08:01→16:45)
[2018-09-27] MEDS: ASPIRIN 81 MG ECTAB PO SCH (08:01)
[2018-09-27] MEDS: FERROUS SULFATE 325 MG TAB PO SCH ×3 (08:01→16:45)
[2018-09-27] MEDS: SPIRONOLACTONE 25 MG TAB PO SCH (08:01)
[2018-09-27] MEDS: PANTOprazole 40 MG TAB PO SCH (08:02)
[2018-09-27] MEDS: CEROVITE ADV FORMULA TAB PO SCH (08:02)
[2018-09-27] MEDS: ASCORBIC ACID 500 MG TAB PO SCH (08:02)
[2018-09-27] MEDS: levETIRAcetam 500 MG TAB PO SCH ×2 (08:02→21:10)
[2018-09-27] MEDS: FUROSEMIDE 80 MG in SYRINGE 0 ML IV SCH ×2 (08:02→16:45)
[2018-09-27] MEDS: FOLIC ACID 400 MCG TAB PO SCH (08:02)
[2018-09-27] MEDS: HYDROCORTISONE HC 2.5% CRM 30GM TUBE EXT SCH ×2 (08:02→21:08)
[2018-09-27] MEDS: POTASSIUM CHLORIDE 20 MEQ TABCR PO SCH ×2 (08:02→21:10)
[2018-09-27] MEDS: OMEGA-3 (PURIFIED FISH OIL) 1 GM CAP PO SCH (08:02)
[2018-09-27 08:08] LABS: BUN Creatinine Ratio 15.2 (10-20); Calcium 8.5 mg/dl (8.5-10.1); Creatinine Clr Calc Pharmacy 82.6 ml/min; Est GFR (African American) 74.8; Est GFR (Non-African American) 64.6; Phosphorus 2.8 mg/dl (2.5-4.9); Potassium 3.7 mmol/L (3.5-5.1)
--- NOTE | 2018-09-27 14:09 | Heart Failure Consultation ---
Date of Consultation September 27, 2018 Assessment & Plan (1) CHF exacerbation: His symptoms are improving. His orthopnea is resolved but he continues to have significant lower extremity edema. He continues to diurese well at >1L/day on 80 mg of Lasix IV twice daily. Renal function electrolytes appear stable. His baseline weight is unknown but likely somewhere around 365 lb based on his discharge weight from [facility] [place]. Would continue aggressive diuretics until his lower extremity edema improves or his creatinine goes up. Anticipate at least 80 mg PO BID for home dose. Continue daily weights, I&O's, low sodium diet, and fluid restriction. (2) H/O aortic valve replacement: Echocardiogram demonstrated normal function of his bioprosthetic aortic valve (3) Nonischemic cardiomyopathy: His overall LV function has waxed and waned over the past few years. His most recent echo shows an EF of 30-35%. Would consider adding Entresto prior to discharge or as an outpatient once he is euvolemic. He continues to be mildly hypotensive at this time. Continue beta blockade and spironolactone. If BP too low for ARNI/JOSÉ ANTONIO, may consider titrating Carvedilol at discharge. (4) Afib: Rate controlled. No symptoms. Previously he was on anticoagulation but this has been discontinued due to gastrointestinal hemorrhage and the concern over repeat hemorrhage. He did have a recent cerebral vascular accident likely related to his atrial fibrillation. However, at this point the risks of anticoagulation appear to outweigh the benefits. Disposition: Recommend continued diuresis with goal of negative 1-2 L per day. Continue to monitor kidney function and electrolytes. Plan on outpatient follow up with the heart failure program within 7 days of discharge. Follow up: 10/05/18 2:00PM History of Present Illness Attending Physician: Raz Bernard Mr. Price is a 68 year old male with a history of aortic valve disease and biprosthetic aortic valve replacement in 2010, permanent atrial fibrillation, acute CVA in Jul 2018 treated at [facility] [place], and morbid obesity. The patient was referred to the heart failure program by Dr. Bernard. His primary plastic surgery technician is Dr. Leone. He was admitted on 09/07/18 with complaints of rectal pain and BRBPR. His atrial fibrillation was well controlled. He was on Eliquis therapy. He admits to dyspnea on exertion, orthopnea, and lower extremity edema. He reports his baseline weight had been approximately 310 lb. He was down to 265 lb when he was discharged from [facility] [place]. His weight at home as been closer to 300 lb again. He states he was given diuretics during his recent hospitalization. Upon admission, his weight was 314 lb. He is down to 288 lb and is negative 6.7 L so far this admission. He's currently receiving Lasix 80 mg BID. His orthopnea has improved but he still has significant lower extremity edema. The patient lives locally with his brother and [id number]. He no longer drives since his stroke. He states he has made a full recovery and suffers no resdidual effects. Allergies Allergy/AdvReac Type Severity Reaction Status Date / Time No Known Allergies Allergy NONE Verified 09/14/18 12:05 Home Medications Home Medications Medication Instructions Recorded Confirmed Type Complete Multi 50+ 1 tab PO QAM 08/11/18 09/14/18 History aspirin [Aspirin Low Dose] 81 mg PO QAM 08/11/18 09/14/18 History carvedilol 6.25 mg PO BID 08/11/18 09/14/18 History folic acid 400 mcg PO QAM 08/11/18 09/14/18 History spironolactone 25 mg PO QAM 08/11/18 09/14/18 History Levemir U-100 Insulin 22 unit SUBCUT QPM 09/07/18 09/14/18 History acetaminophen [Tylenol] 650 mg PO Q4 PRN 09/07/18 09/14/18 History ascorbic acid (vitamin C) [Vitamin 500 mg PO QAM 09/07/18 09/14/18 History C] hydrocortisone [Proctosol HC] 1 applic [place] BID 09/07/18 09/14/18 History insulin lispro [Humalog U-100 6 unit SUBCUT TIDM 09/07/18 09/14/18 History Insulin] levetiracetam [Keppra] 500 mg PO BID 09/07/18 09/14/18 History omega 1-rsn-lnb-fish oil [Fish Oil] 1 cap PO QAM 09/07/18 09/14/18 History omeprazole 20 mg PO QAM 09/07/18 09/14/18 History simvastatin 20 mg PO HS 09/07/18 09/14/18 History tamsulosin [Flomax] 0.4 mg PO PM 09/07/18 09/14/18 History docusate sodium 100 mg PO BID 30 Days #60 cap 09/11/18 09/14/18 Rx ferrous sulfate 325 mg PO TIDM 30 Days #30 tab 09/11/18 09/14/18 Rx Patient History Medical History Aortic stenosis Nonischemic cardiomyopathy CVA (cerebral vascular accident) HLD (hyperlipidemia) HTN (hypertension) Urinary retention DM type 2 (diabetes mellitus, type 2) Seizure GI bleed (Acute) Anemia (Acute) Chronic anticoagulation (Acute) Afib HTN (hypertension) (Chronic) Heart disease (Chronic) Kidney disease (Chronic) Surgical History H/O aortic valve replacement H/O aortic valve replacement (Resolved) Family History Other Colon cancer Social History Communication Ability: Effective Beliefs That Will Affect Care: Scientology Current Living Situation: Family Other Information That Helps Us Care for You: No Feels Safe at Home: Yes Safety Concerns: Feels Safe At This Time Smoking Status: Never smoker Hx Alcohol Use: Yes Hx Substance Use: No Physical Exam Vital Signs (Past 24 Hours): Last Vital Signs Temp 36.6 C 09/27/18 11:44 Pulse 89 09/27/18 11:44 Resp 18 09/27/18 11:44 BP 105/70 09/27/18 11:44 Pulse Ox 91 09/27/18 11:44 (1) CHF exacerbation Heart failure type: unspecified Qualified Code(s): I50.9 - Heart failure, unspecified (2) Afib Atrial fibrillation type: chronic Qualified Code(s): I48.2 - Chronic atrial fibrillation
[2018-09-27] MEDS: INSULIN DETEMIR FLEXPEN/FLEX TOUCH 100 UNITS/ML 3ML SQ SCH (21:08)
[2018-09-27] MEDS: SIMVASTATIN 20 MG TAB PO SCH (21:09)
[2018-09-27] MEDS: TAMSULOSIN HCL 0.4 MG CAP PO SCH (21:11)
[2018-09-27] MEDS: ACETAMINOPHEN 325 MG TAB PO PRN (21:48)
--- NOTE | 2018-09-28 00:12 | Hospitalist Progress Note ---
Date of Service September 27, 2018 Assessment & Plan (1) CHF exacerbation: Acute on Chronic systolic CHF Hx of lasix use that was d/c'd during admission to [facility] for CVA Continue bid IV lasix -continue higher dosage plus spironolactone Echo showed severely reduced systolic function of 30-35% and global hypokinesis and severely dilated ventricle. Right ventricle is severely dilated with moderately reduced right ventricular systolic function. Severe biatrial dilatation. Bioprosthetic aortic valve. Compared to previous study 08/15/10 systolic function has improved. However a 2016 echo showed an EF of 55% Chest CT without pulmonary embolus. Did show pleural effusions and CHF as well as upper abdominal ascites. Will continue to actively diurese patient, PATIENT is about 6 liters negative during hospital stay. Patient is now on room air. Will continue to diurese until we reach patient's dry weight, or until creatinine bumps. (09/27) Anticipate discharge within next 2-3 days. D/W cardio. (2) GI bleed: Continues with with iron supplementation Pt declining transfusion due to Jehoviah's Witness beliefs Hemoglobin however has remained stable. (09/27) (3) Afib: Eliquis was held on last d/c due to GIB Pt wished to continue with aspirin 81mg, Coreg to rate control his A.fib Not anticoagulated at this time due to high risk for bleed and inability to transfuse due to his scientologist beliefs (4) Elevated troponin: Secondary to demand ischemia Troponin peaked at 0.131 and trended down (5) Rectal adenocarcinoma: Follows with Dr. Nieto -continues to be unable to lay flat for initial imaging for XRT (6) DM type 2 (diabetes mellitus, type 2): Continue SSI, levemir (7) Aortic stenosis: As noted above with CHF (8) Nonischemic cardiomyopathy: continue home carvedilol, spironolactone (9) HLD (hyperlipidemia): continue home simvastatin (10) HTN (hypertension): as above (11) Urinary retention: continue home tamsulosin (12) Seizure: continue home Keppra (13) Hypokalemia: Replete (14) CVA (cerebral vascular accident): In July, at [facility] Completed rehab Continue statin, ASA (15) CKD (chronic kidney disease) stage 2, GFR 60-89 ml/min: (16) DVT prophylaxis: SCDs, holding chemoprophylaxis as discussed above Spent 28 minutes in management of patient. Subjective 68 yo male reports feeling well. He has no new complaints. Physical Exam Vital Signs (Past 24 Hours): Last Vital Signs Temp 36.9 C 09/27/18 20:02 Pulse 71 09/27/18 21:12 Resp 20 09/27/18 20:02 BP 114/66 09/27/18 21:12 Pulse Ox 93 09/27/18 20:02 Physical Exam: The patient appeared well nourished and normally developed. Vital signs as documented. Head exam is unremarkable, normocephalic, atraumatic. Neck is with minor jugular venous distension, thyromegaly, or lymphademopathy Lungs are clear to auscultation reduced breath sounds at the bases Cardiac exam reveals Rhythm is regular. Systolic ejection murmur first and second heart sounds normal. Abdominal exam reveals normal bowel sounds, no masses, no organomegaly Extremities are moderately edematous laterally to calf Neurologic exam is A&Ox3, no focal deficits, strength is equal bilateral Psychologically seems neither anxious or depressed Skin is warm Dry without bruises or lesions (1) CHF exacerbation Heart failure type: unspecified Qualified Code(s): I50.9 - Heart failure, unspecified (2) GI bleed GI bleed type/associated pathology: unspecified gastrointestinal hemorrhage type Qualified Code(s): K92.2 - Gastrointestinal hemorrhage, unspecified (3) DM type 2 (diabetes mellitus, type 2) Diabetes mellitus complication status: without complication Diabetes mellitus work manager insulin use: with retirement use Qualified Code(s): E11.9 - Type 2 diabetes mellitus without complications; Z79.4 - pediatric anesthesiologist (current) use of insulin (4) Aortic stenosis Cardiac valve disease etiology: etiology unspecified Qualified Code(s): I35.0 - Nonrheumatic aortic (valve) stenosis (5) Afib Atrial fibrillation type: chronic Qualified Code(s): I48.2 - Chronic atrial fibrillation (6) HLD (hyperlipidemia) Hyperlipidemia type: mixed hyperlipidemia Qualified Code(s): E78.2 - Mixed hyperlipidemia (7) HTN (hypertension) Hypertension type: essential hypertension Qualified Code(s): I10 - Essential (primary) hypertension (8) CVA (cerebral vascular accident) CVA mechanism: embolism Laterality of affected vessel: left Precerebral and cerebral artery: middle cerebral artery Qualified Code(s): I63.412 - Cerebral infarction due to embolism of left middle cerebral artery
[2018-09-28 06:27] LABS: Hematocrit (blood only) 33.8 % (42-52); Hemoglobin 9.9 g/dL (14.0-18.0); Mean Corpuscular Hgb Conc 29.3 g/dL (32-36); Mean Corpuscular Volume 84.3 fL (80-100); Mean Platelet Volume 10.2 fL (7.4-10.4); Platelet Count 245 K/uL (130-400); RDW Coefficient of Variation 21.3 % (11.5-14.5); RDW Standard Deviation 64.4 fL (36.4-46.3); Red Blood Count 4.01 M/uL (4.7-6.1); White Blood Count 6.99 K/uL (4.8-10.8)
[2018-09-28 07:08] LABS: BUN Creatinine Ratio 16.8 (10-20); Calcium 8.8 mg/dl (8.5-10.1); Est GFR (African American) 75.6; Est GFR (Non-African American) 65.3; Potassium 3.6 mmol/L (3.5-5.1)
[2018-09-28 07:58] VITALS: TEMP 97.9; O2SAT 99
[2018-09-28] MEDS: levETIRAcetam 500 MG TAB PO SCH (08:08)
[2018-09-28] MEDS: CEROVITE ADV FORMULA TAB PO SCH (08:08)
[2018-09-28] MEDS: SPIRONOLACTONE 25 MG TAB PO SCH (08:08)
[2018-09-28] MEDS: CARVEDILOL 6.25 MG TAB PO SCH (08:08)
[2018-09-28] MEDS: METFORMIN HCL ER 500 MG TABCR PO SCH (08:08)
[2018-09-28] MEDS: PANTOprazole 40 MG TAB PO SCH (08:08)
[2018-09-28] MEDS: FERROUS SULFATE 325 MG TAB PO SCH ×2 (08:09→11:36)
[2018-09-28] MEDS: ASCORBIC ACID 500 MG TAB PO SCH (08:09)
[2018-09-28] MEDS: ASPIRIN 81 MG ECTAB PO SCH (08:09)
[2018-09-28] MEDS: POTASSIUM CHLORIDE 20 MEQ TABCR PO SCH (08:09)
[2018-09-28] MEDS: OMEGA-3 (PURIFIED FISH OIL) 1 GM CAP PO SCH (08:10)
[2018-09-28] MEDS: FOLIC ACID 400 MCG TAB PO SCH (08:10)
[2018-09-28] MEDS: FUROSEMIDE 80 MG in SYRINGE 0 ML IV SCH (08:11)
[2018-09-28] MEDS: HYDROCORTISONE HC 2.5% CRM 30GM TUBE EXT SCH (08:11)
--- NOTE | 2018-09-28 08:26 | Hospitalist Progress Note ---
Date of Service September 28, 2018 Assessment & Plan (1) CHF exacerbation: Acute on Chronic systolic CHF Hx of lasix use that was d/c'd during [place] [facility] [place] Continue bid IV lasix -continue higher dosage plus spironolactone Echo showed severely reduced systolic function of 30-35% and global hypokinesis and severely dilated ventricle. Right ventricle is severely dilated with moderately reduced right ventricular systolic function. Severe biatrial dilatation. Bioprosthetic aortic valve. Compared to previous study 08/15/10 systolic function has improved. However a 2016 echo showed an EF of 55% Chest CT without pulmonary embolus. Did show pleural effusions and CHF as well as upper abdominal ascites. Will continue to actively diurese patient, PATIENT is about 6 liters negative during hospital stay. Patient is now on room air. Will continue to diurese until we reach patient's dry weight, or until creatinine bumps. (2) GI bleed: Continues with with iron supplementation Pt declining transfusion due to Jehoviah's Witness beliefs Hemoglobin however has remained stable. (09/27) (3) Afib: Eliquis was held on last d/c due to GIB Pt wished to continue with aspirin 81mg, Coreg to rate control his A.fib Not anticoagulated at this time due to high risk for bleed and inability to transfuse due to his orthodoxy beliefs (4) Elevated troponin: Secondary to demand ischemia Troponin peaked at 0.131 and trended down (5) Rectal adenocarcinoma: Follows with Dr. Nieto -continues to be unable to lay flat for initial imaging for XRT (6) DM type 2 (diabetes mellitus, type 2): Continue SSI, levemir (7) Aortic stenosis: As noted above with CHF (8) Nonischemic cardiomyopathy: continue home carvedilol, spironolactone (9) HLD (hyperlipidemia): continue home simvastatin (10) HTN (hypertension): as above (11) Urinary retention: continue home tamsulosin (12) Seizure: continue home Keppra (13) Hypokalemia: Replete (14) CVA (cerebral vascular accident): In July, at [facility] Completed rehab Continue statin, ASA (15) CKD (chronic kidney disease) stage 2, GFR 60-89 ml/min: (16) DVT prophylaxis: SCDs, holding chemoprophylaxis as discussed above Spent 28 minutes in management of patient. Physical Exam Vital Signs (Past 24 Hours): Last Vital Signs Temp 36.6 C 09/28/18 07:57 Pulse 63 09/28/18 07:57 Resp 18 09/28/18 07:57 BP 121/62 09/28/18 07:57 Pulse Ox 99 09/28/18 07:57 (1) CHF exacerbation Heart failure type: unspecified Qualified Code(s): I50.9 - Heart failure, unspecified (2) GI bleed GI bleed type/associated pathology: unspecified gastrointestinal hemorrhage type Qualified Code(s): K92.2 - Gastrointestinal hemorrhage, unspecified (3) Afib Atrial fibrillation type: chronic Qualified Code(s): I48.2 - Chronic atrial fibrillation (4) DM type 2 (diabetes mellitus, type 2) Diabetes mellitus terminal block assembler insulin use: with terminal block assembler use Diabetes mellitus complication status: without complication Qualified Code(s): E11.9 - Type 2 diabetes mellitus without complications; Z79.4 - long-term (current) use of insulin (5) Aortic stenosis Cardiac valve disease etiology: etiology unspecified Qualified Code(s): I35.0 - Nonrheumatic aortic (valve) stenosis (6) HLD (hyperlipidemia) Hyperlipidemia type: mixed hyperlipidemia Qualified Code(s): E78.2 - Mixed hyperlipidemia (7) HTN (hypertension) Hypertension type: essential hypertension Qualified Code(s): I10 - Essential (primary) hypertension (8) CVA (cerebral vascular accident) CVA mechanism: embolism Precerebral and cerebral artery: middle cerebral artery Laterality of affected vessel: left Qualified Code(s): I63.412 - Cerebral infarction due to embolism of left middle cerebral artery
[2018-09-28 11:02] VITALS: BP 107/67; PULSE 64
--- NOTE | 2018-09-28 19:28 | Discharge Summary ---
Date of Service September 28, 2018 Admission HPI Per Admitting Provider 68 y/o M c/o SOB. Pt states he woke around 630am today with SOB. He had no maikol chest pain, but it felt tight due to the breathing issues. He states that he had no SOB yesterday and was able to ambulate and performs his ADLs without issue. He does have increased LE swelling as well. This has been increasing for some time. He states that he was d/c'd [place] [facility] [place] s/p a stroke. He had been on lasix 80mg PO QD prior to that admission. He was dehydrated during this time, so it was held and that hold was continued at d/c. He was sent to [facility] for rehab. He states it was while he was there he has some return of LE swelling. He has continued to take his spironolactone during this time. Pt denies fever, abd pain, n/v/c/d, LE pain. Pt states he is feeling somewhat improved s/p O2 and IV lasix in the ED. Pt was a d/c from [facility] on 09/11 after being admitted for rectal bleeding. He was found to have a mass. He is a Jehoviah's Witness and declined transfusion. He was given iron. He states that he is not passing clots or much blood now. Mainly only notes it on tissue. Per d/c summary, pt's case was to be discussed at tumor board today and Dr. Nieto was to f/u with planning. Pt has continued to have diarrhea. Family states that he was d/c'd with a stool softener scheduled due to the iron pills, but they have held this due to diarrhea. Principal Diagnosis Acute on chronic systolic heart failure Pulmonary vascular congestion Anemia of chronic disease chronic kidney disease stage III and IV Discharge Exam Patient vital signs are reviewed and are stable he has a systolic murmur heard consistent with his previously known mitral valve disease. His lungs have decreased breath sounds at the bases likely consistent with mild effusions. He has normal active bowel sounds and soft his extremities are with 1-2+ edema. Discharge Data Allergies Allergy/AdvReac Type Severity Reaction Status Date / Time No Known Allergies Allergy NONE Verified 09/14/18 12:05 Consultations 09/14/18 14:02 ED Decision to Admit Stat 09/14/18 15:53 Consult Case Management - Discharge Planning Routine 09/15/18 16:08 Consult Cardiology Routine Ordered Studies 09/14/18 12:37 CT angio chest PE protocol Stat Hospital Course (1) CHF exacerbation: Acute on Chronic systolic CHF Hx of lasix use that was d/c'd during admission to [facility] for [place] Continue 80 twice daily Lasix with potassium supplementation Echo showed severely reduced systolic function of 30-35% and global hypokinesis and severely dilated ventricle. Right ventricle is severely dilated with moderately reduced right ventricular systolic function. Severe biatrial dilatation. Bioprosthetic aortic valve. Compared to previous study 08/15/10 systolic function has improved. However a 2016 echo showed an EF of 55% Chest CT without pulmonary embolus. Did show pleural effusions and CHF as well as upper abdominal ascites. Will continue to actively diurese patient, PATIENT is about 6 liters negative during hospital stay. Patient is now on room air. She requested to go home we did not get a simulation done for his rectal mass. This will be done as an outpatient. (2) GI bleed: Continues with with iron supplementation Pt declining transfusion due to Jehoviah's Witness beliefs Hemoglobin however has remained stable. (3) Afib: Eliquis was held on last d/c due to GIB Pt wished to continue with aspirin 81mg, Coreg to rate control his A.fib Not anticoagulated at this time due to high risk for bleed and inability to transfuse due to his mandaen beliefs (4) Elevated troponin: Secondary to demand ischemia Troponin peaked at 0.131 and trended down this is likely demand ischemia (5) Rectal adenocarcinoma: Follows with Dr. Nieto -be seen as an outpatient for simulation for his radiation therapy (6) DM type 2 (diabetes mellitus, type 2): Resume home medication regimen (7) Aortic stenosis: This is improved with bile prostatic valve replacement is however have mitral valve disease now (8) Nonischemic cardiomyopathy: continue home carvedilol, spironolactone (9) HLD (hyperlipidemia): continue home simvastatin (10) HTN (hypertension): Controlled (11) Urinary retention: continue home tamsulosin (12) Seizure: continue home Keppra (13) Hypokalemia: Replete (14) CVA (cerebral vascular accident): In July, at [facility] Completed rehab Continue statin, ASA (15) CKD (chronic kidney disease) stage 2, GFR 60-89 ml/min: (16) DVT prophylaxis: SCDs, holding chemoprophylaxis as discussed above Total Time Total Time Spent Total Time Spent (In Minutes): greater than 30 minutes were required to prepare discharge Discharge Plan Discharge Items Patient Disposition: Home - Self-Care Reason For Visit: CHF EXAVERBATION Discharge Diagnosis: heart failure Discharge Goals: Decrease discomfort Activity: Resume your previous activity Non-emergency contact: Primary Care Provider and Wellness Consultant Call non-emergency contact if: you have any medication questions Follow-up/Referrals: Jose Leone MD [Wellness Consultant] - 10/11/18 1:45 pm (Please, follow up at [facility] Cardiology Office with Dr. Leone on ThursdayOctober 11 at 1:45 pm. *If you need to change this appointment, call the office at [phone].) Erika Negro [Primary Care Provider] - 09/30/18 12:50 pm (Please, follow up with Dr. Negro on September 30 at 12:50 pm. *If you have any questions, call the office at [phone].) Victoria Gutierres PA-C [Physician Motorized Squad Commanding Officer] - 10/05/18 2:00 pm (Please, follow up at [facility] Cardiology Office with Silva Gutierres PA-C on ThursdayOctober 05 at 2:00 pm. *This office is located in [address] of [facility] next to this hospital. If you have any questions, call the office at [phone].) Diet: Carb Consistent or DM2 and Low Sodium (2gm) Addtl Provider Instructions: Call your Primary Care doctor if any of the following symptoms or problems start or get worse: * Shortness of breath or difficulty breathing * Wake up at night short of breath * Chest pain * Cough * Swelling of your hands, feet, or legs * More fatigued or tired with your normal activity * Palpitations - sudden fast heart beats WEIGHT * Weigh yourself every morning after using the bathroom. * Use the same scale. * Wear the same amount of clothing. * Write your weight down on a chart. * Call your Primary Care doctor if you gain more than 2-3 pounds in 1-2 days. MEDICATIONS * Use this discharge instruction sheet for medication instructions. * Take your medications at the time your doctor ordered. * Do not skip a dose of your medicines. * If you miss a dose of medicine, take it as soon as possible, but DO NOT DOUBLE A DOSE. * Read your medicine information when you get home. * Know all of the side effects of your medicine. If in doubt, ask your pharmacist * Call your Primary Care doctor's office if you have any side effects. * Be sure all of your doctors know what medicine and herbs you take (including cold, flu, and herbal medicine). Take the following with you to your follow-up doctor appointments: * Weight Chart * Medication List * List of questions Do not drink excessive alcohol, beer or wine. Prescriptions: New potassium chloride [Klor-Con M20] 20 mEq Tablet,Er Particles/Crystals 40 meq PO BID Qty: 60 RF: 0 furosemide [Lasix] 80 mg tablet 80 mg PO BID Qty: 60 RF: 5 Continued carvedilol 6.25 mg tablet 6.25 mg PO BID RF: 0 folic acid 400 mcg Tablet 400 mcg PO QAM RF: 0 aspirin [Aspirin Low Dose] 81 mg Tablet,Delayed Release (Dr/Ec) 81 mg PO QAM RF: 0 spironolactone 25 mg Tablet 25 mg PO QAM RF: 0 Complete Multi 50+ 500-300-250 mcg Tablet 1 tab PO QAM RF: 0 acetaminophen [Tylenol] 325 mg Tablet 650 mg PO Q4 PRN (Reason: Fever Or Pain) RF: 0 levetiracetam [Keppra] 500 mg tablet 500 mg PO BID RF: 0 hydrocortisone [Proctosol HC] 2.5 % Cream With Perineal Applicator 1 applic DE BID RF: 0 ascorbic acid (vitamin C) [Vitamin C] 500 mg Tablet 500 mg PO QAM RF: 0 tamsulosin [Flomax] 0.4 mg capsule 0.4 mg PO PM RF: 0 simvastatin 20 mg Tablet 20 mg PO HS RF: 0 insulin lispro [Humalog U-100 Insulin] 100 unit/mL solution 6 unit subcut TIDM RF: 0 Levemir U-100 Insulin 100 unit/mL solution 22 unit subcut QPM RF: 0 omeprazole 20 mg Tablet,Delayed Release (Dr/Ec) 20 mg PO QAM RF: 0 omega 3-avn-wii-fish oil [Fish Oil] 1,000 mg (120 mg-180 mg) Capsule 1 cap PO QAM RF: 0 docusate sodium 100 mg Capsule 100 mg PO BID 30 Days Qty: 60 RF: 0 ferrous sulfate 325 mg (65 mg iron) Tablet,Delayed Release (Dr/Ec) 325 mg PO TIDM 30 Days Qty: 30 RF: 0 Stand-Alone Forms: [facility] Discharge Orders: Discharge Order (Routine); Ordered 09/28/18 Ordered By: Lane Frank Admission Data Admit Date/Time: 09/14/18 14:50 Attending Provider: Lane Frank Admit Provider: Liberty Camargo Primary Care Provider: Erika Negro Other Providers: Liberty Camargo ; Kobi Sosa ; Rza Bernard Service: Telemetry Other Interventions: Discharge Summary Assessment (RN) Last Done: 09/28/18 11:01 DC Date/Time DO NOT enter until pt leaves facility: 09/28/18 13:12
== END 2018-09-28 13:12 | disposition home or self-care (01) | DRG 291 ==
LOC: ED 11:35 → SUATTDRO 14:50 → 2S 14:50 → 2W 09-21 18:46
DX: Z66 Do not resuscitate; E87.6 Hypokalemia; Z79.899 Other long term (current) drug therapy; D63.1 Anemia in chronic kidney disease; E11.22 Type 2 diabetes mellitus with diabetic chronic kidney disease; Z79.4 Long term (current) use of insulin; I13.0 Hypertensive heart and chronic kidney disease with heart failure and stage 1 through stage 4 chronic kidney disease, or unspecified chronic kidney disease; R33.9 Retention of urine, unspecified; N18.2 Chronic kidney disease, stage 2 (mild); C19 Malignant neoplasm of rectosigmoid junction; Z86.73 Personal history of transient ischemic attack (TIA), and cerebral infarction without residual deficits; Z79.82 Long term (current) use of aspirin; E78.2 Mixed hyperlipidemia; Z95.2 Presence of prosthetic heart valve; R56.9 Unspecified convulsions; I24.8 Other forms of acute ischemic heart disease; I42.9 Cardiomyopathy, unspecified; K92.2 Gastrointestinal hemorrhage, unspecified; I50.23 Acute on chronic systolic (congestive) heart failure; Z80.0 Family history of malignant neoplasm of digestive organs; Z87.891 Personal history of nicotine dependence; I48.2 Chronic atrial fibrillation

== ENCOUNTER 2019-01-23 12:45 | Inpatient (IN) ==
[2019-01-23] MEDS ORDERED: SODIUM CHLORIDE 0.9% 1000ML 2,000 ML IV SCH (13:15)
[2019-01-23 13:17] LABS: Eosinophils # (auto) 0.04 K/uL (0-0.5); Eosinophils % (auto) 1.3 %; Hematocrit (blood only) 38.7 % (42-52); Hemoglobin 13.6 g/dL (14.0-18.0); Immature Granulocytes # (auto) 0.02 K/uL (0.00-0.02); Immature Granulocytes % (auto) 0.7 %; Lymphocytes % (auto) 19.6 %; Mean Corpuscular Hgb Conc 35.1 g/dL (32-36); Mean Corpuscular Volume 81.5 fL (80-100); Monocytes # (auto) 0.91 K/uL (0.11-0.59); Monocytes % (auto) 29.7 %; Neutrophils # (auto) 1.49 K/uL (1.4-6.5); Neutrophils % (auto) 48.7 %; Platelet Count 151 K/uL (130-400); RDW Coefficient of Variation 17.1 % (11.5-14.5); RDW Standard Deviation 47.1 fL (36.4-46.3); Red Blood Count 4.75 M/uL (4.7-6.1); White Blood Count 3.06 K/uL (4.8-10.8)
[2019-01-23 13:25] LABS: Albumin Level 2.6 gm/dl (3.4-5.0); BUN Creatinine Ratio 28.4 (10-20); Calcium 8.8 mg/dl (8.5-10.1); Creatinine Clr Calc Pharmacy 72.5 ml/min; Est GFR (African American) 78.1; Est GFR (Non-African American) 67.4; Magnesium 1.7 mg/dl (1.8-2.4); Potassium 2.6 mmol/L (3.5-5.1)
[2019-01-23 13:27] LABS: INR 1.2 (0.9-1.1); Partial Thromboplastin Ratio 0.9; Partial Thromboplastin Time 24.9 Seconds (21.0-31.0); Prothrombin Time 11.9 Seconds (9.0-12.0)
--- NOTE | 2019-01-23 13:31 | Emergency Department Note ---
Entered by Nesha Rubin acting as a scribe for Denzel Donnelly MD History of Present Illness General Chief complaint: Syncope Source: patient and family Mode of arrival: EMS History of Present Illness Onset (ago): hour(s) 1 Location: head (Syncope) Pain Consistency: + other (Episode) Quality: + other (Syncope) Exacerbated By: + movement Associated symptoms: + syncope and + weakness; no fever/chills, no headaches, no nausea/vomiting and no shortness of breath The patient is a 68 year old male presenting to the Emergency Department via EMS complaining of an episode of syncope starting 1 hour ago. The patient reports that he stood up after going to the bathroom and lost consciousness. He states that he doesnt remember losing consciousness but felt weak just beforehand. The patients family reports that when the patient lost consciousness he fell hitting his head on the floor and suffered a nose bleed. The patient states that he has been experiencing diarrhea for the past 6 months. He states that he has been having frequent bowel movements and that his diarrhea has been tomas colored. He explains that he was diagnosed with colon cancer in August 2018 and has been receiving chemotherapy treatments. He notes that his last chemotherapy treatment was 10 days ago but that he is schedule to get another treatment tomorrow. He adds that he normally receives chemotherapy treatments on Mondays. The patient reports that he was experiencing rectal bleeding that ultimately led to his diagnosis of colon cancer. He states that he has not experienced rectal bleeding in the past 3 to 4 months. He notes that he sees Dr. Jacobson oncologist. He adds that he is studying to be a Jehovahs witness and does not want any blood transfusions. He adds that his tetanus shot is up to date. The patient denies chest pain, shortness of breath, nausea, vomiting, fever, chills and headache. Home Medications Home Medications Medication Instructions Recorded Confirmed Type Complete Multi 50+ 1 tab PO QAM 08/11/18 01/23/19 History aspirin [Aspirin Low Dose] 81 mg PO QAM 08/11/18 01/23/19 History folic acid 400 mcg PO QAM 08/11/18 01/23/19 History spironolactone 25 mg PO QAM 08/11/18 01/23/19 History ascorbic acid (vitamin C) [Vitamin 500 mg PO QAM 09/07/18 01/23/19 History C] hydrocortisone [Proctosol HC] 1 applic MO UD PRN 09/07/18 01/23/19 History omega 6-tjl-uam-fish oil [Fish Oil] 1 cap PO QAM 09/07/18 01/23/19 History omeprazole 20 mg PO QAM 09/07/18 01/23/19 History simvastatin 20 mg PO HS 09/07/18 01/23/19 History tamsulosin [Flomax] 0.4 mg PO PM 09/07/18 01/23/19 History carvedilol 6.25 mg tablet 12.5 mg PO BID tab 10/11/18 01/23/19 History Entresto 1 tab PO BID 11/16/18 01/23/19 History Levemir U-100 Insulin 10 unit SUBCUT HS 11/16/18 01/23/19 History amoxicillin 500 mg PO UD PRN 11/16/18 01/23/19 History ferrous gluconate 324 mg PO TID 11/16/18 01/23/19 History furosemide [Lasix] 80 mg PO HS 11/16/18 01/23/19 History potassium chloride [Klor-Con M20] 20 meq PO QAM 11/16/18 01/23/19 History silver sulfadiazine [Silvadene] 1 appln TOP UD PRN 11/16/18 01/23/19 History levetiracetam 500 mg tablet 250 mg PO BID tab 12/03/18 01/23/19 History Allergies Allergy/AdvReac Type Severity Reaction Status Date / Time No Known Allergies Allergy NONE Verified 01/23/19 14:27 Past Med/Surg History Medical History Aortic stenosis Nonischemic cardiomyopathy CVA (cerebral vascular accident) 08/11/18 HLD (hyperlipidemia) HTN (hypertension) DM type 2 (diabetes mellitus, type 2) Seizure "SMALL SEIZURE AT TIME OF CVA 07/2018" BPH (benign prostatic hyperplasia) Chronic systolic (congestive) heart failure Colon cancer GERD (gastroesophageal reflux disease) Kidney disease (Chronic) AAA (abdominal aortic aneurysm) NEW FINDING Anemia Atrial fibrillation Cancer COLON CANCER (NEW DX) RADIATION JUST COMPLETED Congestive heart failure Osteoarthritis Sleep apnea Surgical History Port-A-Cath in place (Chronic) H/O aortic valve replacement (Chronic) 2010 AT [facility] H/O knee surgery RT/LEFT History of cardiac cath 2010 History of colonoscopy History of tooth extraction Family History Brother Family history of diabetes mellitus Mother Colon cancer Social History Preferred Language: Latvian Communication Ability: Effective Beliefs That Will Affect Care: Confucianism Confucianism Beliefs: Jehovia Witness marital status: Current Living Situation: Family Feels Safe at Home: Yes Smoking Status: Unknown if ever smoked Hx Alcohol Use: No Hx Substance Use: No Review of Systems See HPI for pertinent positives & negatives. and A total of 10 systems reviewed and were otherwise negative Physical Exam Vital Signs Vital Signs - 24 hr 01/23/19 12:38 01/23/19 13:35 01/23/19 15:00 Temperature 36.5 C Temperature Source Oral Sepsis Recent Fever Within 48 Hours No Sepsis Action Taken by Nursing No Action Required Pulse Rate 77 Pulse Rate [Apical] 70 70 Pulse Rhythm [Apical] Irregular Pulse Strength [Apical] Normal Respiratory Rate 18 18 18 Respiratory Effort / Characteristics Non-Labored Respiratory Depth Normal Respiratory Pattern Regular Blood Pressure 87/56 L Blood Pressure [Right Arm] 101/61 86/52 L Blood Pressure Mean 66 Blood Pressure Mean [Right Arm] 74 63 Blood Pressure Position Lying Blood Pressure Position [Right Arm] Sitting Pulse Oximetry 96 97 96 Oxygen Delivery Method Room Air Room Air GENERAL: Patient is in no acute distress. HEENT: Normocephalic. Mucous membranes dry, no nasal congestion, no scleral icterus. Non-tender facial bones. No bony step off noted. NECK: No stridor, no adenopathy, no meningismus, trachea is midline. LUNGS: Decreased breath sounds to right lung. No wheezing or rhonchi. No respiratory distress. HEART: Without murmurs gallops or rubs, regular rate and rhythm. ABDOMEN: Soft, nontender, bowel sounds positive, no hernias, no peritonitis. EXTREMITIES: No edema. Bruises of different ages to all 4 extremities. 3 cm skin tear to dorsal mid left hand. No evidence of bony tenderness. No active bleeding. NEUROLOGIC: Oriented x 3, no acute motor or sensory deficits, no focal weakness. SKIN: No rash, no jaundice, no diaphoresis. Pale. Course 0052: The patient was evaluated in room A3, and a complete history and physical examination were performed. 1445: I reevaluated the patient at this time who reports that he feels better but still feels weak overall. 1453: I discussed the patients case with Dr. Brianda TAYLOR hospitalist. She will evaluate the patient for further management. Consultations Consultation #1: I discussed the patients case with Dr. Brianda TAYLOR hospitalist. She will evaluate the patient for further management. Time: 14:53 Administered Medications Sodium Chloride (Nss 1000ml) 1,000 mls @ 75 mls/hr IV .[id number] JENNIFFER Stop: 02/22/19 16:54 Last Admin: 01/23/19 18:31 Dose: 75 mls/hr Documented by: [id number] Insulin Aspart (Novolog Flexpen) 0 units SC ACHS JENNIFFER Stop: 02/22/19 16:54 Last Admin: 01/23/19 17:40 Dose: Not Given Documented by: [id number] Cosigned by: [id number] Discontinued Medications Sodium Chloride (Nss 1000ml) 2,000 mls @ 999 mls/hr IV .[id number] JENNIFFER Stop: 01/23/19 15:15 Last Infusion: 01/23/19 15:11 Dose: 0 mls/hr Documented by: [id number] Admin: 01/23/19 13:00 Dose: 999 mls/hr Documented by: [id number] Magnesium Sulfate/Dextrose (Magnesium Sulfate / D5w) 1 gm in 100 mls @ 100 mls/hr IV ONE ONE Stop: 01/23/19 14:48 Last Infusion: 01/23/19 16:17 Dose: 0 mls/hr Documented by: [id number] Admin: 01/23/19 15:06 Dose: 100 mls/hr Documented by: [id number] Potassium Chloride (K Foster / Wtr) 10 meq in 100 mls @ 100 mls/hr IV ONE ONE Stop: 01/23/19 14:47 Last Infusion: 01/23/19 15:11 Dose: 0 mls/hr Documented by: [id number] Admin: 01/23/19 14:07 Dose: 100 mls/hr Documented by: [id number] Sodium Chloride (Nss) 500 mls @ 999 mls/hr IV .Q31M ONE Stop: 01/23/19 15:54 Last Infusion: 01/23/19 16:17 Dose: 0 mls/hr Documented by: [id number] Admin: 01/23/19 15:25 Dose: 999 mls/hr Documented by: [id number] Ceftriaxone Sodium (Rocephin) 1,000 mg in 50 mls @ 100 mls/hr IV NOW STA Stop: 01/23/19 16:43 Last Infusion: 01/23/19 18:32 Dose: 0 mls/hr Documented by: [id number] Admin: 01/23/19 16:57 Dose: 100 mls/hr Documented by: [id number] Potassium Chloride (Klor-Con M20) 40 meq PO NOW STA Stop: 01/23/19 13:49 Last Admin: 01/23/19 14:07 Dose: 40 meq Documented by: [id number] Medical Decision Making Differential Diagnosis Differentials include dehydration, anemia, GI bleed, liver or renal failure, neutropenia, low platelet count. Infection, intracranial bleeding, dysrhythmia and UTI amongst others. Medical Records Attestation: I reviewed the patient's medical records. Home Medications Current Medication List: was personally reviewed by me Laboratory Data Attestation: I reviewed the patient's lab results. Result diagrams: 01/23/19 12:35 01/23/19 18:06 Lab Results 01/23/19 01/23/19 01/23/19 Range/Units 12:35 12:35 12:35 WBC 3.06 L (4.8-10.8) K/uL RBC 4.75 (4.7-6.1) M/uL Hgb 13.6 L (14.0-18.0) g/dL Hct 38.7 L (42-52) % MCV 81.5 (80-100) fL MCH 28.6 (25-34) pg MCHC 35.1 (32-36) g/dL RDW Std Deviation 47.1 H (36.4-46.3) fL RDW Coeff of Amandeep 17.1 H (11.5-14.5) % Plt Count 151 (130-400) K/uL MPV 10.0 (7.4-10.4) fL Immature Gran % (Auto) 0.7 % Neut % (Auto) 48.7 % Lymph % (Auto) 19.6 % Hendricks % (Auto) 29.7 % Eos % (Auto) 1.3 % Baso % (Auto) 0.0 % Immature Gran # (Auto) 0.02 (0.00-0.02) K/uL Neut # (Auto) 1.49 (1.4-6.5) K/uL Lymph # (Auto) 0.60 L (1.2-3.4) K/uL Hendricks # (Auto) 0.91 H (0.11-0.59) K/uL Eos # (Auto) 0.04 (0-0.5) K/uL Baso # (Auto) 0.00 (0-0.2) K/uL PT 11.9 (9.0-12.0) Seconds INR 1.2 H (0.9-1.1) APTT 24.9 (21.0-31.0) Seconds PTT Ratio 0.9 Sodium 138 (136-145) mmol/L Potassium 2.6 L (3.5-5.1) mmol/L Chloride 102 (98-107) mmol/L Carbon Dioxide 26 (21-32) mmol/L Anion Gap 10.0 (3-11) BUN 32 H (7-18) mg/dl Creatinine 1.11 (0.6-1.4) mg/dl Est Cr Clr Drug Dosing 72.5 ml/min Est GFR ( Amer) 78.1 Est GFR (Non-Af Amer) 67.4 BUN/Creatinine Ratio 28.4 H (10-20) Glucose 84 (70-99) mg/dl Calcium 8.8 (8.5-10.1) mg/dl Magnesium 1.7 L (1.8-2.4) mg/dl Total Bilirubin 0.5 (0.2-1) mg/dl AST 13 L (15-37) U/L ALT 15 (12-78) U/L Alkaline Phosphatase 80 (45-117) U/L Troponin I 0.025 (0-0.045) ng/ml Total Protein 6.2 L (6.4-8.2) gm/dl Albumin 2.6 L (3.4-5.0) gm/dl Globulin 3.6 (2.5-4.0) gm/dl Albumin/Globulin Ratio 0.7 L (0.9-2) TSH 1.950 (0.300-4.500) uIu/ml Imaging Data Radiologist's Impression: Radiology results as stated below per my review and the radiologist's interpretation: CT SCAN OF THE BRAIN WITHOUT IV CONTRAST CLINICAL HISTORY: Syncope. COMPARISON STUDY: CT of the brain dated 08/11/2018. TECHNIQUE: Unenhanced axial CT scan of the brain is performed from the vertex to the skull base. A dose lowering technique was utilized adhering to the principles of ALARA. CT DOSE: 537.48 mGy.cm FINDINGS: Brain parenchyma: A focus left parietal encephalomalacia is unchanged and consistent with a remote infarct. Minimal microangiopathic change is observed. There is no hemorrhage, mass effect, or evidence of acute territorial ischemia by CT criteria. Tidwell-white matter differentiation is preserved. No extra-axial fluid collection is seen. Ventricles, sulci, cisterns: Normal in configuration. Intracranial vasculature: There is atherosclerotic calcification of the cavernous carotid and vertebral arteries. Calvarium: Unremarkable. Sinuses and mastoids: There is mild mucosal thickening within the ethmoid, right frontal, and right sphenoid sinuses. The mastoid air cells are well pneumatized. Orbits: The bony orbits are grossly intact. IMPRESSION: There is no hemorrhage, mass effect, or evidence of acute territorial ischemia by CT criteria. Electronically signed by: Dnezel Quarles M.D. 01/23/2019 1:55 PM SINGLE VIEW CHEST CLINICAL HISTORY: Syncope. FINDINGS: 2 AP, portable, upright chest radiographs are compared to chest x-ray and chest CT dated 11/23/2018 and correlated with chest CT dated 10/21/2018. The examination is degraded by portable technique and patient rotation. A left subclavian central venous infusion port is unchanged from previous. The patient is status post midline sternotomy and cardiac valve surgery. The heart is enlarged and there is atherosclerotic calcification of the thoracic aorta. The pulmonary vasculature is noncongested. There is chronic elevation of the right hemidiaphragm. Foci of scarring/atelectasis are present at both lung bases. Scattered calcified granulomas are observed. There is no large pleural effusion or pneumothorax. The skeletal structures are osteopenic. The bony thorax appears intact. IMPRESSION: Cardiomegaly with no acute cardiopulmonary abnormality identified. Electronically signed by: Denzel Quarles M.D. 01/23/2019 1:46 PM ECG Data Attestation: I personally reviewed and interpreted this ECG as follows: Indication: syncope Rate (beats per minute): 69 Rhythm: atrial fibrillation (Likely A-fib) Findings: + other (Lots of artifact noted. Old anterior infarct.) and + PVC Blood Pressure Blood Pressure Findings: Low blood pressure Blood Pressure Disposition: further management by hospitalist Head Trauma GCS Score: 15 MDM Narrative There is no leukocytosis, in fact, the white count is somewhat low, likely consistent with his chemotherapy. No concerning anemia. Platelet count was normal. INR was 1.2, slightly elevated but no concerning coagulopathy was felt present. Renal panel testing shows a low potassium at 2.6. Magnesium is low at 1.7. No kidney failure. No liver enzyme elevation. The patient appeared to be in a euthyroid state. Urinalysis did suggest possible infection, urine culture is pending. Chest film did not show pneumonia or CHF. Brain CT showed no acute bleed or mass-effect. EKG shows what looks like an atrial fibrillation, no acute ischemic change. Cardiac enzyme testing x1 is not consistent with acute cardiac injury. The patient was given IV and oral potassium. He was given IV magnesium. He was given IV saline, 2 L. He received IV ceftriaxone as antibiotic coverage. Patient's blood pressure is still low despite the IV fluids. I do think a hospital stay is warranted. He has not suffered any major injury from his syncopal spell. I suspect the hypotension is multifactorial. He is dehydrated, his electrolytes are in need of replacement, he has a UTI and bowel cancer. I did speak to the patient and case management. The on-call hospitalist was consulted. Impression & Plan Hypotension, Hypokalemia, Dehydration, Syncope, Head trauma, Hypomagnesemia, Diarrhea, UTI (urinary tract infection) Critical Care Time Critical Care Time: Yes Total Critical Care Time: 35 I have personally spent greater than 35 minutes of critical care time in the direct management of this patient. This includes bedside care, interpretation of diagnostic studies and testing, discussion with consultants, the patient, and family members, and other required patient management activities. This 35 minutes is in excess of all separately billable procedures. Discharge Plan Visit Data *Final* Discharge Date/Time: 01/23/19 16:31 Chief Complaint: Syncope ED Provider: Denzel Donnelly Discharge Problem: Hypotension, Hypokalemia, Dehydration, Syncope, Head trauma, Hypomagnesemia, Diarrhea, UTI (urinary tract infection) Patient Disposition: Admitted As Inpatient Discharge Instructions Interventions: ED Discharge Assessment Last Done: 01/23/19 16:31 Discharge Problem: Hypotension Qualifiers: Hypotension type: unspecified hypotension type Qualified Code(s): I95.9 - Hypotension, unspecified Syncope Qualifiers: Syncope type: unspecified Qualified Code(s): R55 - Syncope and collapse Head trauma Qualifiers: Encounter type: initial encounter Qualified Code(s): S09.90XA - Unspecified injury of head, initial encounter Diarrhea Qualifiers: Diarrhea type: unspecified type Qualified Code(s): R19.7 - Diarrhea, unspecified UTI (urinary tract infection) Qualifiers: Urinary tract infection type: site unspecified Hematuria presence: without hematuria Qualified Code(s): N39.0 - Urinary tract infection, site not specified The scribe's documentation has been prepared under my direction and personally reviewed by me in its entirety. I confirm that the note above accurately reflects all work, treatment, procedures, and medical decision making performed by me.
[2019-01-23 13:36] LABS: Albumin Globulin Ratio 0.7 (0.9-2); Bilirubin,Total 0.5 mg/dl (0.2-1); Globulin 3.6 gm/dl (2.5-4.0); Total Protein 6.2 gm/dl (6.4-8.2); Troponin I 0.025 ng/ml (0-0.045)
--- NOTE | 2019-01-23 13:47 | XRay Report ---
SINGLE VIEW CHEST CLINICAL HISTORY: Syncope. FINDINGS: 2 AP, portable, upright chest radiographs are compared to chest x-ray and chest CT dated and correlated with chest CT dated 10/21/2018. The examination is degraded by portable techniq ue and patient rotation. A left subclavian central venous infusion port is unchanged from previous. T he patient is status post midline sternotomy and cardiac valve surgery. The heart is enlarged and the re is atherosclerotic calcification of the thoracic aorta. The pulmonary vasculature is noncongested. There is chronic elevation of the right hemidiaphragm. Foci of scarring/atelectasis are present at [facility] lung bases. Scattered calcified granulomas are observed. There is no large pleural effusion or pn eumothorax. The skeletal structures are osteopenic. The bony thorax appears intact. IMPRESSION: Cardiomegaly with no acute cardiopulmonary abnormality identified. Electronically signed by: Denzel Quarles M.D. 01/23/2019 1:46 PM
[2019-01-23] MEDS ORDERED: POTASSIUM CHLORIDE 20 MEQ TABCR PO STA ×2 (13:48→18:46)
[2019-01-23] MEDS ORDERED: POTASSIUM CHLORIDE / WTR 10 MEQ/100 ML PLCT IV ONE (13:48)
[2019-01-23] MEDS ORDERED: MAGNESIUM SULFATE / D5W 1 GM/100 ML BAG IV ONE ×2 (13:49→19:00)
--- NOTE | 2019-01-23 13:56 | CT Scan Report ---
CT SCAN OF THE BRAIN WITHOUT IV CONTRAST CLINICAL HISTORY: Syncope. COMPARISON STUDY: CT of the brain dated 08/11/2018. TECHNIQUE: Unenhanced axial CT scan of the brain is performed from the vertex to the skull base. A d ose lowering technique was utilized adhering to the principles of ALARA. CT DOSE: 537.48 mGy.cm FINDINGS: Brain parenchyma: A focus left parietal encephalomalacia is unchanged and consistent with a remote in farct. Minimal microangiopathic change is observed. There is no hemorrhage, mass effect, or evidence of acute territorial ischemia by CT criteria. Tidwell-white matter differentiation is preserved. No extr a-axial fluid collection is seen. Ventricles, sulci, cisterns: Normal in configuration. Intracranial vasculature: There is atherosclerotic calcification of the cavernous carotid and vertebr al arteries. Calvarium: Unremarkable. Sinuses and mastoids: There is mild mucosal thickening within the ethmoid, right frontal, and right s phenoid sinuses. The mastoid air cells are well pneumatized. Orbits: The bony orbits are grossly intact. IMPRESSION: There is no hemorrhage, mass effect, or evidence of acute territorial ischemia by CT dk farfan. Electronically signed by: Denzel Quarles M.D. 01/23/2019 1:55 PM
[2019-01-23] MEDS ORDERED: SODIUM CHLORIDE 0.9% 500 ML IV ONE (15:24)
--- NOTE | 2019-01-23 15:46 | History & Physical Report ---
Date of Service January 23, 2019 Assessment & Plan (1) Syncope: This patient is a 68-year-old male with a history of colon cancer status post radiation and currently on chemotherapy, chronic diarrhea, aortic valve replacement, chronic systolic CHF, A. fib, DM 2, BPH, hyperlipidemia, GERD, CKD stage III, and the left MCA territory CVA, who presents to the ER after passing out in the bathroom today. He reports he was having his usual diarrhea and sitting on the toilet and he stood up and reached for the bathroom spray and the next thing he remembers is waking up on his knees facedown on the floor. His brother was in the bathroom when it happened and found him and called for an ambulance. He has never passed out before. He denies any chest pain or palpitations prior to when it happened. He does note that he has had 4-5 loose stools daily for the last 6 to 12 months and that this has not worsened lately. His blood pressures have been quite low in the last month or so, systolic blood pressure never above 100. In fact, his cardiology PA recently lowered a lot of his medications that were affecting his blood pressure because of this. In the ER, he was found to have blood pressure in the 70s systolic and he was given boluses of IV fluids with improvement to the 80s. He was mentating well. He was also hypokalemic and hypomagnesemic and these were being replaced at the time of admission. Otherwise, patient denies fevers or headaches, denies chest pain shortness of breath, denies abdominal pain. He has a small skin tear in the left dorsal hand which occurred during the fall, but denies any other joint pains or injuries anywhere else. Of note, he is training to be a L[employer] and declines any blood products if necessary. Syncope-likely related to hypotension and dehydration from chronic diarrhea, chemotherapy with poor p.o. intake over the last week, and continued chronic diarrhea -Admit to telemetry unit follow blood pressures -Continue maintenance IV fluids after he received 2 and half liters bolus in the ER -Check orthostatics every shift -Watch on telemetry for ventricular arrhythmias -No need to do cardiac work-up any further as he has had extensive cardiac work- up in the recent months (2) Hypotension: Secondary to issues as above -Hydrating with IV fluids -Holding home carvedilol, Entresto, Lasix, spironolactone, and tamsulosin -Follow blood pressures No need for vasopressors at this time (3) Hypokalemia: Potassium 2.9 on admission likely secondary to GI losses and diuretic use -Replacing with IV and p.o. potassium here -Check BMP at 1800 (4) Hypomagnesemia: Magnesium low at 1.7 on admission could be secondary to GI losses -Replacing with IV magnesium recheck magnesium level at 1800 (5) Kidney disease: CKD stage II-III Currently creatinine is excellent at 1.1 -Avoid nephrotoxins -Renally dose medications -Follow BMP (6) Atrial fibrillation: Permanent Not on anticoagulation due to previous rectal bleeding colon cancer Holding carvedilol due to hypotension as above -Monitor on telemetry (7) Colon cancer: Status post radiation therapy and currently on chemotherapy and is due for chemotherapy tomorrow -Consult oncology to see if he will get chemotherapy tomorrow or not -Supportive care (8) Nonischemic cardiomyopathy: Most recent EF is 35% Clearly is dehydrated at this time -Giving IV fluids and holding diuretics and other cardiac medications at this time -Watch for volume overload (9) HLD (hyperlipidemia): Continue statin (10) HTN (hypertension): Holding home meds for hypotension as above (11) DM type 2 (diabetes mellitus, type 2): -Give home Levemir and will give sliding scale insulin, Accu-Cheks Diabetic diet (12) Seizure: Continue home Keppra (13) H/O aortic valve replacement: Replaced in 2010 Bioprosthetic Stable and functioning well most recent echocardiogram (14) GERD (gastroesophageal reflux disease): Continue PPI (15) BPH (benign prostatic hyperplasia): No current issues with retention Holding tamsulosin as above for hypotension (16) Chronic systolic (congestive) heart failure: As above (17) Diarrhea: Chronic for the last year as per family -Supportive care, replace electrolytes (18) DVT prophylaxis: Add MELLISSA Murrys Hold chemical anticoagulation at this time due to recent epistaxis with head trauma Disposition-admit to telemetry unit History of Present Illness Chief Complaint: Passed out Primary Care Provider: Erika Negro This patient is a 68-year-old male with a history of colon cancer status post radiation and currently on chemotherapy, chronic diarrhea, aortic valve replacement, chronic systolic CHF, A. fib, DM 2, BPH, hyperlipidemia, GERD, CKD stage III, and the left MCA territory CVA, who presents to the ER after passing out in the bathroom today. He reports he was having his usual diarrhea and sitting on the toilet and he stood up and reached for the bathroom spray and the next thing he remembers is waking up on his knees facedown on the floor. His brother was in the bathroom when it happened and found him and called for an ambulance. He has never passed out before. He denies any chest pain or palpitations prior to when it happened. He does note that he has had 4-5 loose stools daily for the last 6 to 12 months and that this has not worsened lately. His blood pressures have been quite low in the last month or so, systolic blood pressure never above 100. In fact, his cardiology PA recently lowered a lot of his medications that were affecting his blood pressure because of this. In the ER, he was found to have blood pressure in the 70s systolic and he was given boluses of IV fluids with improvement to the 80s. He was mentating well. He was also hypokalemic and hypomagnesemic and these were being replaced at the time of admission. Otherwise, patient denies fevers or headaches, denies chest pain shortness of breath, denies abdominal pain. He has a small skin tear in the left dorsal hand which occurred during the fall, but denies any other joint pains or injuries anywhere else. Of note, he is training to be a [employer] and declines any blood products if necessary. Allergies Allergy/AdvReac Type Severity Reaction Status Date / Time No Known Allergies Allergy NONE Verified 01/23/19 14:27 Home Medications Home Medications Medication Instructions Recorded Confirmed Type Complete Multi 50+ 1 tab PO QAM 08/11/18 01/23/19 History aspirin [Aspirin Low Dose] 81 mg PO QAM 08/11/18 01/23/19 History folic acid 400 mcg PO QAM 08/11/18 01/23/19 History spironolactone 25 mg PO QAM 08/11/18 01/23/19 History ascorbic acid (vitamin C) [Vitamin 500 mg PO QAM 09/07/18 01/23/19 History C] hydrocortisone [Proctosol HC] 1 applic [place] UD PRN 09/07/18 01/23/19 History omega 7-kca-qiu-fish oil [Fish Oil] 1 cap PO QAM 09/07/18 01/23/19 History omeprazole 20 mg PO QAM 09/07/18 01/23/19 History simvastatin 20 mg PO HS 09/07/18 01/23/19 History tamsulosin [Flomax] 0.4 mg PO PM 09/07/18 01/23/19 History carvedilol 6.25 mg tablet 12.5 mg PO BID tab 10/11/18 01/23/19 History Entresto 1 tab PO BID 11/16/18 01/23/19 History Levemir U-100 Insulin 10 unit SUBCUT HS 11/16/18 01/23/19 History amoxicillin 500 mg PO UD PRN 11/16/18 01/23/19 History ferrous gluconate 324 mg PO TID 11/16/18 01/23/19 History furosemide [Lasix] 80 mg PO HS 11/16/18 01/23/19 History potassium chloride [Klor-Con M20] 20 meq PO QAM 11/16/18 01/23/19 History silver sulfadiazine [Silvadene] 1 appln TOP UD PRN 11/16/18 01/23/19 History levetiracetam 500 mg tablet 250 mg PO BID tab 12/03/18 01/23/19 History Past Med/Surg History Medical History Aortic stenosis Nonischemic cardiomyopathy CVA (cerebral vascular accident) 08/11/18 HLD (hyperlipidemia) HTN (hypertension) DM type 2 (diabetes mellitus, type 2) Seizure "SMALL SEIZURE AT TIME OF CVA 07/2018" BPH (benign prostatic hyperplasia) Chronic systolic (congestive) heart failure Colon cancer GERD (gastroesophageal reflux disease) Kidney disease (Chronic) AAA (abdominal aortic aneurysm) NEW FINDING Anemia Atrial fibrillation Cancer COLON CANCER (NEW DX) RADIATION JUST COMPLETED Congestive heart failure Osteoarthritis Sleep apnea Surgical History Port-A-Cath in place (Chronic) H/O aortic valve replacement (Chronic) 2010 AT [facility] H/O knee surgery RT/LEFT History of cardiac cath 2010 History of colonoscopy History of tooth extraction Family History Brother Family history of diabetes mellitus Mother Colon cancer Social History Preferred Language: Mohawk Communication Ability: Effective Beliefs That Will Affect Care: Adventism Adventism Beliefs: JEHOVAW WITNESS/NO BLOOD PRODUCTS marital status: Current Living Situation: Family Feels Safe at Home: Yes Smoking Status: Former smoker Tobacco Type: cigarettes Age Quit Using Tobacco: 48 Years Smoked: 20 Cigarettes Per Day: 5 Number of Years Since Quit: 20 Second Hand Exposure: No Hx Alcohol Use: No Hx Substance Use: No Review of Systems Review of Systems: All systems reviewed & are unremarkable except as noted in HPI & below Physical Exam Constitutional: WD/WN, vitals as above Eyes: PERRL, conjunctivae normal, anicteric sclerae ENMT: external ear and nose normal, oropharynx normal Neck: trachea midline, no thyromegaly Respiratory: normal respiratory effort, lungs clear to auscultation Cardiovascular: Rate/Rhythm: regular rate and + irregularly irregular Heart Sounds: + murmur (2/6 DANELLE at RUSB) Extremities: no edema Gastrointestinal (Abdomen): normal bowel sounds, soft, nontender, no hepatosplenomegaly Musculoskeletal: Extremities: extremities normal to inspection; no cyanosis and no clubbing Skin: + wound (L dorsal hand skin tear, slight oozing; R hand dorsal with old skin tears) Neurologic: moves all extremities and awake; no focal motor deficits Psychiatric: A+Ox3, euthymic affect Results & Data Vital Signs (Past 12 Hours) Vital Signs Temp Pulse Pulse Resp BP BP Pulse Ox 01/23/19 15:00 70 18 86/52 L 96 01/23/19 13:35 70 18 101/61 97 01/23/19 12:38 36.5 C 77 18 87/56 L 96 Laboratory Results 01/23/19 01/23/19 01/23/19 Range/Units 15:40 12:35 12:35 WBC (4.8-10.8) K/uL RBC (4.7-6.1) M/uL Hgb (14.0-18.0) g/dL Hct (42-52) % MCV (80-100) fL MCH (25-34) pg MCHC (32-36) g/dL RDW Std Deviation (36.4-46.3) fL RDW Coeff of Amandeep (11.5-14.5) % Plt Count (130-400) K/uL MPV (7.4-10.4) fL Immature Gran % (Auto) % Neut % (Auto) % Lymph % (Auto) % Blaine % (Auto) % Eos % (Auto) % Baso % (Auto) % Immature Gran # (Auto) (0.00-0.02) K/uL Neut # (Auto) (1.4-6.5) K/uL Lymph # (Auto) (1.2-3.4) K/uL Blaine # (Auto) (0.11-0.59) K/uL Eos # (Auto) (0-0.5) K/uL Baso # (Auto) (0-0.2) K/uL PT 11.9 (9.0-12.0) Seconds INR 1.2 H (0.9-1.1) APTT 24.9 (21.0-31.0) Seconds PTT Ratio 0.9 Sodium 138 (136-145) mmol/L Potassium 2.6 L (3.5-5.1) mmol/L Chloride 102 (98-107) mmol/L Carbon Dioxide 26 (21-32) mmol/L Anion Gap 10.0 (3-11) BUN 32 H (7-18) mg/dl Creatinine 1.11 (0.6-1.4) mg/dl Est Cr Clr Drug Dosing 72.5 ml/min Est GFR ( Amer) 78.1 Est GFR (Non-Af Amer) 67.4 BUN/Creatinine Ratio 28.4 H (10-20) Glucose 84 (70-99) mg/dl Calcium 8.8 (8.5-10.1) mg/dl Magnesium 1.7 L (1.8-2.4) mg/dl Total Bilirubin 0.5 (0.2-1) mg/dl AST 13 L (15-37) U/L ALT 15 (12-78) U/L Alkaline Phosphatase 80 (45-117) U/L Troponin I 0.025 (0-0.045) ng/ml Total Protein 6.2 L (6.4-8.2) gm/dl Albumin 2.6 L (3.4-5.0) gm/dl Globulin 3.6 (2.5-4.0) gm/dl Albumin/Globulin Ratio 0.7 L (0.9-2) TSH 1.950 (0.300-4.500) uIu/ml Urine Color Pending Urine Appearance Pending Urine pH Pending Ur Specific Huslia Pending Urine Protein Pending Urine Glucose (UA) Pending Urine Ketones Pending Urine Blood Pending Urine Nitrite Pending Urine Bilirubin Pending Urine Urobilinogen Pending Ur Leukocyte Esterase Pending 01/23/19 Range/Units 12:35 WBC 3.06 L (4.8-10.8) K/uL RBC 4.75 (4.7-6.1) M/uL Hgb 13.6 L (14.0-18.0) g/dL Hct 38.7 L (42-52) % MCV 81.5 (80-100) fL MCH 28.6 (25-34) pg MCHC 35.1 (32-36) g/dL RDW Std Deviation 47.1 H (36.4-46.3) fL RDW Coeff of Amandeep 17.1 H (11.5-14.5) % Plt Count 151 (130-400) K/uL MPV 10.0 (7.4-10.4) fL Immature Gran % (Auto) 0.7 % Neut % (Auto) 48.7 % Lymph % (Auto) 19.6 % Blaine % (Auto) 29.7 % Eos % (Auto) 1.3 % Baso % (Auto) 0.0 % Immature Gran # (Auto) 0.02 (0.00-0.02) K/uL Neut # (Auto) 1.49 (1.4-6.5) K/uL Lymph # (Auto) 0.60 L (1.2-3.4) K/uL Blaine # (Auto) 0.91 H (0.11-0.59) K/uL Eos # (Auto) 0.04 (0-0.5) K/uL Baso # (Auto) 0.00 (0-0.2) K/uL PT (9.0-12.0) Seconds INR (0.9-1.1) APTT (21.0-31.0) Seconds PTT Ratio Sodium (136-145) mmol/L Potassium (3.5-5.1) mmol/L Chloride (98-107) mmol/L Carbon Dioxide (21-32) mmol/L Anion Gap (3-11) BUN (7-18) mg/dl Creatinine (0.6-1.4) mg/dl Est Cr Clr Drug Dosing ml/min Est GFR ( Amer) Est GFR (Non-Af Amer) BUN/Creatinine Ratio (10-20) Glucose (70-99) mg/dl Calcium (8.5-10.1) mg/dl Magnesium (1.8-2.4) mg/dl Total Bilirubin (0.2-1) mg/dl AST (15-37) U/L ALT (12-78) U/L Alkaline Phosphatase (45-117) U/L Troponin I (0-0.045) ng/ml Total Protein (6.4-8.2) gm/dl Albumin (3.4-5.0) gm/dl Globulin (2.5-4.0) gm/dl Albumin/Globulin Ratio (0.9-2) TSH (0.300-4.500) uIu/ml Urine Color Urine Appearance Urine pH Ur Specific Huslia Urine Protein Urine Glucose (UA) Urine Ketones Urine Blood Urine Nitrite Urine Bilirubin Urine Urobilinogen Ur Leukocyte Esterase Diagnostic Findings CT head-old left parietal infarct with encephalomalacia, no acute changes Chest [id number] at the bases, no infiltrate, left subclavian port in place Code Status & VTE Plan Code Status DNR/DNI VTE Prophylaxis Plan VTE Prophylaxis will be ordered: Yes PG Care Time/CCT Total # of Minutes Spent Total Time Spent with Patient: Total time spent is greater than 50% in coordination of care (as documented) at patient's floor/unit and/or counseling patient: (1) DM type 2 (diabetes mellitus, type 2) Diabetes mellitus complication status: without complication Diabetes mellitus group home insulin use: with group home use Qualified Code(s): E11.9 - Type 2 diabetes mellitus without complications; Z79.4 - continuous churn buttermaker (current) use of insulin (2) Diarrhea Diarrhea type: unspecified type Qualified Code(s): R19.7 - Diarrhea, unspecified (3) HLD (hyperlipidemia) Hyperlipidemia type: mixed hyperlipidemia Qualified Code(s): E78.2 - Mixed hyperlipidemia (4) Syncope Syncope type: unspecified Qualified Code(s): R55 - Syncope and collapse (5) HTN (hypertension) Hypertension type: essential hypertension Qualified Code(s): I10 - Essential (primary) hypertension (6) Hypotension Hypotension type: unspecified hypotension type Qualified Code(s): I95.9 - Hypotension, unspecified
[2019-01-23 16:04] LABS: Appearance Urine Cloudy (Clear); Bacteria Urine Automated 3+ (Negative); Bilirubin Urine Negative (Negative); Blood Urine 1+ (Negative); Color Urine Yellow; Epithelial Cell Urine Auto 0-5 /lpf (0-5); Glucose Urine UA Negative (Negative); Ketones Urine Negative (Negative); Leukocyte Esterase Urine 2+ (Negative); Nitrite Urine Negative (Negative); Protein Urine 1+ (Negative); RBC Urine Automated 0-4 /hpf (0-4); Specific Gravity Urine 1.013 (1.000-1.030); Urobilinogen Urine Negative (Negative); WBC Urine Automated >30 /hpf (0-5)
[2019-01-23] MEDS ORDERED: cefTRIAXone SODIUM 1,000 MG/50 ML BAG IV STA (16:14)
[2019-01-23] MEDS ORDERED: DEXTROSE 50% 50 ML SYRINGE IV PRN (16:55)
[2019-01-23] MEDS ORDERED: HYDROCORTISONE HC 2.5% CRM 30GM TUBE EXT PRN (16:55)
[2019-01-23] MEDS ORDERED: GLUCOSE 10 TABS/TUBE PO PRN (16:55)
[2019-01-23] MEDS ORDERED: GLUCOSE 40% GEL 15 GM TUBE PO PRN (16:55)
[2019-01-23] MEDS ORDERED: ALUMINUM/MAGNESIUM SUSP 30 ML UDC PO PRN (16:55)
[2019-01-23] MEDS ORDERED: CARBOHYDRATES FOR HYPOGLYCEMIA PO PRN (16:55)
[2019-01-23] MEDS ORDERED: ONDANSETRON INJ 2 MG/ML 2 ML VIAL IV PRN (16:55)
[2019-01-23] MEDS ORDERED: GLUCAGON FOR INJ 1 MG VIAL SQ PRN (16:55)
[2019-01-23] MEDS: INSULIN ASPART 100 UNITS/ML 3 ML PEN SC SCH ×2 (17:40→20:31)
[2019-01-23] MEDS: SODIUM CHLORIDE 0.9% 1000ML 1,000 ML IV SCH (18:31)
[2019-01-23 18:36] LABS: BUN Creatinine Ratio 30.5 (10-20); Calcium 7.9 mg/dl (8.5-10.1); Creatinine Clr Calc Pharmacy 90.7 ml/min; Est GFR (African American) 100.6; Est GFR (Non-African American) 86.8; Magnesium 1.8 mg/dl (1.8-2.4); Potassium 2.3 mmol/L (3.5-5.1)
[2019-01-23] MEDS: FERROUS GLUCONATE 324 MG TAB PO SCH (20:13)
[2019-01-23] MEDS: POTASSIUM CHLORIDE / WTR 20 MEQ/100 ML PLCT IV SCH ×2 (20:13→21:24)
[2019-01-23] MEDS: levETIRAcetam 250 MG TAB PO SCH (20:14)
[2019-01-23] MEDS: SIMVASTATIN 20 MG TAB PO SCH (20:14)
[2019-01-23] MEDS: ACETAMINOPHEN 325 MG TAB PO PRN (20:21)
[2019-01-23] MEDS: INSULIN DETEMIR FLEXPEN/FLEX TOUCH 100 UNITS/ML 3ML SC SCH (20:34)
[2019-01-23] MEDS ORDERED: OXYCODONE HCL IR 5 MG TAB (IMMEDIATE RELEASE) PO STA (22:41)
[2019-01-24] MEDS ORDERED: HEPARIN 100 UNIT/ML 5ML FLUSH FLUSH PRN (02:14)
[2019-01-24] MEDS: SODIUM CHLORIDE 0.9% 1000ML 1,000 ML IV SCH ×2 (05:56→16:28)
[2019-01-24 06:41] LABS: Hematocrit (blood only) 34.5 % (42-52); Hemoglobin 11.9 g/dL (14.0-18.0); Mean Corpuscular Hgb Conc 34.5 g/dL (32-36); Mean Corpuscular Volume 81.4 fL (80-100); Platelet Count 117 K/uL (130-400); RDW Coefficient of Variation 17.6 % (11.5-14.5); RDW Standard Deviation 48.7 fL (36.4-46.3); Red Blood Count 4.24 M/uL (4.7-6.1); White Blood Count 3.25 K/uL (4.8-10.8)
[2019-01-24 06:54] LABS: Estimated Average Glucose 171 mg/dl; Hemoglobin A1C 7.6 % (4.5-5.6)
[2019-01-24 07:41] LABS: Basophils # (auto) 0.01 K/uL (0-0.2); Basophils % (auto) 0.3 %; Dohle Bodies 1+; Eosinophils # (auto) 0.05 K/uL (0-0.5); Eosinophils % (auto) 1.5 %; Giant Platelets 2+; Immature Granulocytes # (auto) 0.02 K/uL (0.00-0.02); Immature Granulocytes % (auto) 0.6 %; Lymphocytes # (auto) 0.48 K/uL (1.2-3.4); Lymphocytes % (auto) 14.8 %; Monocytes # (auto) 0.91 K/uL (0.11-0.59); Neutrophils # (auto) 1.78 K/uL (1.4-6.5); Neutrophils % (auto) 54.8 %; Toxic Granulation 3+
[2019-01-24] MEDS: INSULIN ASPART 100 UNITS/ML 3 ML PEN SC SCH ×4 (07:44→20:09)
[2019-01-24] MEDS: MULTIVITAMIN TAB PO SCH (07:46)
[2019-01-24] MEDS: PANTOprazole 40 MG TAB PO SCH (07:46)
[2019-01-24] MEDS: ASPIRIN 81 MG ECTAB PO SCH (07:47)
[2019-01-24] MEDS: FOLIC ACID 400 MCG TAB PO SCH (07:47)
[2019-01-24] MEDS: FERROUS GLUCONATE 324 MG TAB PO SCH ×3 (07:48→20:02)
[2019-01-24] MEDS: POTASSIUM CHLORIDE 20 MEQ TABCR PO SCH (07:48)
[2019-01-24] MEDS: levETIRAcetam 250 MG TAB PO SCH ×2 (07:49→20:02)
[2019-01-24 08:34] LABS: BUN Creatinine Ratio 25.4 (10-20); Calcium 8.2 mg/dl (8.5-10.1); Creatinine Clr Calc Pharmacy 93.4 ml/min; Est GFR (African American) 101.6; Est GFR (Non-African American) 87.6; Magnesium 1.9 mg/dl (1.8-2.4); Potassium 2.8 mmol/L (3.5-5.1)
[2019-01-24] MEDS: cefTRIAXone SODIUM 2,000 MG in DEXTROSE 5% 50 ML IV SCH (08:50)
[2019-01-24] MEDS: ASCORBIC ACID 500 MG TAB PO SCH (08:50)
--- NOTE | 2019-01-24 09:06 | Consultation Report ---
DATE OF CONSULTATION: 01/24/2019 MEDICAL ONCOLOGY CONSULTATION REASON FOR CONSULTATION: A 68-year-old gentleman admitted for syncope, currently under [facility] care for surgically unresectable colorectal cancer. HISTORY OF PRESENT ILLNESS: Mr. Price is a pleasant 68-year-old gentleman with unresectable colorectal cancer in the midst of receiving combination oxaliplatin, 5-FU, leucovorin and bevacizumab. The patient was admitted on January 23 for a syncopal episode at his home. According to Mr. Price, he was in the bathroom accompanied by his brother who happened to be showering. Mr. Price himself is on a commode and when he lucas, walked towards bathroom door and the next thing he knew, he hit the floor. He had no full warning of the event and denies feeling poorly leading up to the syncopal episode. There was no evidence of seizure or loss of consciousness. EMS was activated. The patient was brought to the Emergency Room where his blood pressure was found to be in the 70 systolically. He was given a bolus of IV fluids. This morning, he reports no complaints of pain, fever or chills, and his appetite remains stable. He is currently on monitored bed and reports a history of atrial fibrillation. Mr. Price was originally diagnosed with unresectable colorectal cancer in August of this year. For the most part, he has done very well with chemotherapy. He has been following with our physician fitness manager over the past several visits. Other than some mild diarrhea and decreased appetite, on the whole, he has done reasonably well. PAST MEDICAL HISTORY: Significant for BPH, gastroesophageal reflux disease, history of aortic valve replacement, seizure disorder, type 2 diabetes mellitus, hypertension, hyperlipidemia, nonischemic cardiomyopathy, unresectable colorectal cancer, atrial fibrillation, chronic kidney disease, electrolyte dysfunction. MEDICATIONS: Prior to admission include multivitamin 1 p.o. daily, aspirin 81 mg p.o. daily, folic acid 400 mcg p.o. daily, spironolactone 25 mg p.o. daily, vitamin C 500 mg p.o. daily, hydrocortisone rectal suppository 1 per rectum p.r.n., omega-3 fish oil 1 capsule p.o. daily, omeprazole 20 mg p.o. daily, simvastatin 20 mg p.o. daily, Flomax 0.4 mg p.o. daily, carvedilol 12.5 mg p.o. b.i.d., Entresto 1 tablet p.o. b.i.d., Levemir insulin 10 units subQ at bedtime, amoxicillin 500 mg p.o. daily p.r.n., ferrous gluconate 325 mg p.o. t.i.d., Lasix 80 mg p.o. at bedtime, potassium chloride 20 mEq p.o. daily, Keppra 250 mg p.o. b.i.d. ALLERGIES: No known drug allergies. SOCIAL HISTORY: The patient is retired. He is a [employer]. He is presently . He is a former smoker. No alcohol or illicit drugs. FAMILY HISTORY: Positive for diabetes mellitus and mother had a history of colorectal cancer. REVIEW OF SYSTEMS: As per HPI, most notably for mildly decreased appetite. No fevers, chills or sweats. Positive for syncope. SKIN: No history of dermatosis. No rashes or lesions. HEENT: No history of headache, lightheadedness, or dizziness. No acute visual or hearing deficits. No sinus symptoms, sore throat or dysphagia. LYMPH: No history of lymphadenopathy or lymphoproliferative disease. CARDIAC: Positive history of nonischemic cardiomyopathy. Positive history of atrial fibrillation. No current angina or palpitations. PULMONARY: Negative for COPD. No shortness of breath, dyspnea or orthopnea. No cough or hemoptysis. GASTROINTESTINAL: Negative for abdominal pain, nausea, vomiting, diarrhea or constipation, hematochezia or melena stools. GENITOURINARY: No hematuria, dysuria, urinary incontinence. Positive for BPH. ENDOCRINE: Positive for type 2 diabetes mellitus. Negative for thyroid disease. NEUROLOGIC: Positive for seizure disorder. Negative for stroke. HEMATOLOGIC: Positive for treatment-induced cytopenias. MUSCULOSKELETAL: No arthralgias or myalgias. No muscle weakness. PHYSICAL EXAMINATION: GENERAL: Very pleasant 68-year-old, awake, alert and appropriate, in no acute distress. VITAL SIGNS: Temperature 36.9, pulse 71, respiratory rate 18, blood pressure 84/63. SKIN: Warm, dry, noncyanotic without petechiae, rash or ecchymosis. HEENT: Head: Atraumatic, normocephalic. Eyes: PERRLA, EOMI. Sclerae nonicteric. No conjunctival injection. Nares are patent without rhinorrhea or discharge. Throat is clear. Tongue is midline. Mucous membranes are moist. NECK: Supple without JVD or thyromegaly. LYMPHATICS: No cervical or supraclavicular palpable nodes. HEART: Regular rate and rhythm. No clicks, rubs, murmurs or gallops. LUNGS: Clear to auscultation bilaterally. ABDOMEN: Soft, nontender, nondistended. EXTREMITIES: No clubbing, cyanosis or edema. MUSCULOSKELETAL: Strength is equal in all 4 quadrants as are pulses. NEUROLOGICALLY: He is awake, alert and oriented x3. Cranial nerves II-XII are intact. LABORATORY DATA: WBC count 3250, hemoglobin 11.9, platelet count 117,000. Coags are within normal limits. Electrolytes or serum chemistries are pending. UA does reveal a fair amount of WBCs and leukocyte esterase. I suspect cultures are pending. IMPRESSION: 1. Syncope, etiology unclear. 2. Hypotension. 3. Electrolyte dysfunction. 4. Chronic kidney disease. 5. Atrial fibrillation. 6. Unresectable colorectal cancer. 7. Status post oxaliplatin, 5-FU, leucovorin and bevacizumab. PLAN: I have been asked to visit with Mr. Price. He has been a patient of ours since August of this year when he was diagnosed with surgically unresectable colorectal cancer. This gentleman has a syncopal episode in my opinion without warning. He has a significant cardiac history and I believe probably an underlying arrhythmia may have resulted in his episode. This gentleman for the most part has done reasonably well with some minor side effects associated with chemotherapy, but on the whole, I suspect cardiac origin more so than chemotherapeutic effect. Electrolytes are abnormal and should be repleted and monitored closely. We will not resume chemotherapy until he is medically cleared. We will continue to follow Mr. Price during his hospital stay. Appreciate being allowed to participate in his care. Thank you very much for allowing me to participate in his care. ZEINA
[2019-01-24] MEDS: POTASSIUM CHLORIDE / WTR 10 MEQ/100 ML PLCT IV SCH ×6 (09:25→12:34)
[2019-01-24] MEDS ORDERED: MAGNESIUM SULFATE / D5W 1 GM/100 ML BAG IV ONE (09:30)
--- NOTE | 2019-01-24 09:39 | Hospitalist Progress Note ---
Date of Service January 24, 2019 Assessment & Plan (1) Syncope: This patient is a 68-year-old male with a history of colon cancer status post radiation and currently on chemotherapy, chronic diarrhea, aortic valve replacement, chronic systolic CHF, A. fib, DM 2, BPH, hyperlipidemia, GERD, CKD stage III, and the left MCA territory CVA, who presents to the ER after passing out in the bathroom today. He reports he was having his usual diarrhea and sitting on the toilet and he stood up and reached for the bathroom spray and the next thing he remembers is waking up on his knees facedown on the floor. His brother was in the bathroom when it happened and found him and called for an ambulance. He has never passed out before. He denies any chest pain or palpitations prior to when it happened. He does note that he has had 4-5 loose stools daily for the last 6 to 12 months and that this has not worsened lately. His blood pressures have been quite low in the last month or so, systolic blood pressure never above 100. In fact, his cardiology PA recently lowered a lot of his medications that were affecting his blood pressure because of this. In the ER, he was found to have blood pressure in the 70s systolic and he was given boluses of IV fluids with improvement to the 80s. He was mentating well. He was also hypokalemic and hypomagnesemic and these were being replaced at the time of admission. Otherwise, patient denies fevers or headaches, denies chest pain shortness of breath, denies abdominal pain. He has a small skin tear in the left dorsal hand which occurred during the fall, but denies any other joint pains or injuries anywhere else. Of note, he is training to be a [employer] and declines any blood products if necessary. Syncope-initially thought to be related to hypotension and dehydration from chronic diarrhea, chemotherapy with poor p.o. intake over the last week, and continued chronic diarrhea. However, with the episode of sustained ventricular tachycardia lasting 1-1/2 minutes with resultant syncope witnessed in the hospital on 01/24-it is likely t hat the syncope he had at home prior to admission was also due to sustained ventricular tachycardia -Aggressively replacing potassium and magnesium -Cardiology consultation obtained-discussed need for ICD-he will likely benefit from it as his prognosis with his colon cancer is life expectancy of hopefully several more years -Not adding amiodarone at this time as it will not likely improve mortality as per cardiology -Follow serial BMP and replace electrolytes as needed -Continue telemetry monitoring -Continue maintenance IV fluids for persistent hypotension -Check orthostatics every shift -His home Lasix, carvedilol, Entresto, and spironolactone, are all on hold at this time due to low blood pressures (2) Ventricular tachycardia, sustained: With documented 1 minute 20 seconds of sustained ventricular tachycardia with episode of syncope, maintained his pulse throughout on 01/24 Hypokalemia likely contributed, but also with low EF -Cardiology consulted-considering ICD placement this admission-patient is thinking about it currently (3) Hypotension: Secondary to issues as above -Continue to hydrate with IV fluids -Continue holding home carvedilol, Entresto, Lasix, spironolactone, and tamsulosin -Follow blood pressures No need for vasopressors at this time (4) Hypokalemia: Potassium 2.9 on admission likely secondary to GI losses and diuretic use, continues to be severely low secondary to diarrhea, and likely contributed to his sustained ventricular tachycardia today -Continue to replace with IV and p.o. potassium -Follow BMP (5) Hypomagnesemia: Magnesium low at 1.7 on admission could be secondary to GI losses, now improved -Replaced with IV magnesium -Follow magnesium level in the morning (6) Kidney disease: CKD stage II-III Currently creatinine is excellent at 0.88 -Avoid nephrotoxins -Renally dose medications -Follow BMP (7) Atrial fibrillation: Permanent Not on anticoagulation due to previous rectal bleeding colon cancer Holding carvedilol due to hypotension as above -Monitor on telemetry (8) Colon cancer: Status post radiation therapy and currently on chemotherapy-was due for next treatment on 01/24 -Consult oncology appreciated-chemotherapy on hold for now -Supportive care (9) Nonischemic cardiomyopathy: Most recent EF is 35% Clearly was dehydrated upon admission-now improving -Continue giving IV fluids and holding diuretics and other cardiac medications at this time -Watch for volume overload (10) HLD (hyperlipidemia): Continue statin (11) HTN (hypertension): Holding home meds for hypotension as above (12) DM type 2 (diabetes mellitus, type 2): -Give home Levemir and will give sliding scale insulin, Accu-Cheks Diabetic diet (13) Seizure: Continue home Keppra (14) H/O aortic valve replacement: Replaced in 2011 Bioprosthetic Stable and functioning well most recent echocardiogram (15) GERD (gastroesophageal reflux disease): Continue PPI (16) BPH (benign prostatic hyperplasia): No current issues with retention Holding tamsulosin as above for hypotension (17) Chronic systolic (congestive) heart failure: As above (18) Diarrhea: Chronic for the last year as per family -Supportive care, replace electrolytes (19) UTI (urinary tract infection): Abnormal UA on admission Urine culture with E. coli, sensitivities pending -Continue Rocephin daily and convert to p.o. antibiotics after sensitivities returned (20) DVT prophylaxis: GADIEL cortes, SCDs Hold chemical anticoagulation at this time due to recent epistaxis with head trauma and history of GI bleeding Disposition-continued PCU stay Subjective Patient was a code purple this morning after he was lying in bed talking to the nurse and then lost consciousness mid-sentence. He was unconscious for approximately 30 seconds but maintained a pulse as per the nurse. When I got to the room, he was awake and talking but a little bit confused. He had a minute and 20 seconds of sustained ventricular tachycardia during this event on telemetry monitoring. He denied any chest pain or shortness of breath, denied abdominal pain or headache. No lightheadedness. He had already had several episodes of diarrhea today. Otherwise on telemetry he had atrial fibrillation with controlled rates and frequent PVCs, rates were in the 70s to 80s I discussed the case with cardiology and with oncology. Review of Systems Review of Systems: All systems reviewed & are unremarkable except as noted in HPI & below Physical Exam 2 Constitutional: + ill appearing; no acute distress and not diaphoretic Eyes: PERRL, conjunctivae normal, anicteric sclerae ENMT: external ear and nose normal, oropharynx normal Neck: trachea midline, no thyromegaly Respiratory: normal respiratory effort, lungs clear to auscultation Cardiovascular: Rate/Rhythm: regular rate and + irregularly irregular Heart Sounds: + murmur (2/6 DANELLE at RUSB) Extremities: no edema Gastrointestinal (Abdomen): normal bowel sounds, soft, nontender, no hepa tosplenomegaly Musculoskeletal: Extremities: extremities normal to inspection; no cyanosis and no clubbing Skin: + wound (L dorsal hand skin tear, slight oozing; R hand dorsal with old skin tears) Neurologic: moves all extremities and awake; no focal motor deficits Psychiatric: A+Ox3, euthymic affect Results & Data Vital Signs (Past 12 Hours) Vital Signs Temp Pulse Pulse Resp BP BP Pulse Ox 01/24/19 07:09 36.9 C 71 18 76/49 L 84/63 L 95 01/24/19 05:51 82/41 L 01/24/19 03:30 36.7 C 78 20 100/54 L 97 01/23/19 23:16 36.9 C 66 20 100/62 96 Laboratory Results 01/24/19 01/24/19 01/24/19 Range/Units 20:06 16:07 14:36 WBC (4.8-10.8) K/uL RBC (4.7-6.1) M/uL Hgb (14.0-18.0) g/dL Hct (42-52) % MCV (80-100) fL MCH (25-34) pg MCHC (32-36) g/dL RDW Std Deviation (36.4-46.3) fL RDW Coeff of Amandeep (11.5-14.5) % Plt Count (130-400) K/uL MPV (7.4-10.4) fL Immature Gran % (Auto) % Neut % (Auto) % Lymph % (Auto) % [place] % (Auto) % Eos % (Auto) % Baso % (Auto) % Immature Gran # (Auto) (0.00-0.02) K/uL Neut # (Auto) (1.4-6.5) K/uL Lymph # (Auto) (1.2-3.4) K/uL [place] # (Auto) (0.11-0.59) K/uL Eos # (Auto) (0-0.5) K/uL Baso # (Auto) (0-0.2) K/uL Toxic Granulation Dohle Bodies Giant Platelets Sodium 137 (136-145) mmol/L Potassium 3.2 L (3.5-5.1) mmol/L Chloride 108 H (98-107) mmol/L Carbon Dioxide 21 (21-32) mmol/L Anion Gap 8.0 (3-11) BUN 17 (7-18) mg/dl Creatinine 0.87 (0.6-1.4) mg/dl Est Cr Clr Drug Dosing 94.4 ml/min Est GFR ( Amer) 102.1 Est GFR (Non-Af Amer) 88.1 BUN/Creatinine Ratio 19.9 (10-20) Glucose 154 H (70-99) mg/dl POC Glucose 116 H 132 H (70-99) Estimat Average Glucose mg/dl Hemoglobin A1c (4.5-5.6) % Calcium 8.2 L (8.5-10.1) mg/dl Magnesium (1.8-2.4) mg/dl 01/24/19 01/24/19 01/24/19 Range/Units 11:09 09:52 07:07 WBC (4.8-10.8) K/uL RBC (4.7-6.1) M/uL Hgb (14.0-18.0) g/dL Hct (42-52) % MCV (80-100) fL MCH (25-34) pg MCHC (32-36) g/dL RDW Std Deviation (36.4-46.3) fL RDW Coeff of Amandeep (11.5-14.5) % Plt Count (130-400) K/uL MPV (7.4-10.4) fL Immature Gran % (Auto) % Neut % (Auto) % Lymph % (Auto) % [place] % (Auto) % Eos % (Auto) % Baso % (Auto) % Immature Gran # (Auto) (0.00-0.02) K/uL Neut # (Auto) (1.4-6.5) K/uL Lymph # (Auto) (1.2-3.4) K/uL [place] # (Auto) (0.11-0.59) K/uL Eos # (Auto) (0-0.5) K/uL Baso # (Auto) (0-0.2) K/uL Toxic Granulation Dohle Bodies Giant Platelets Sodium (136-145) mmol/L Potassium (3.5-5.1) mmol/L Chloride (98-107) mmol/L Carbon Dioxide (21-32) mmol/L Anion Gap (3-11) BUN (7-18) mg/dl Creatinine (0.6-1.4) mg/dl Est Cr Clr Drug Dosing ml/min Est GFR ( Amer) Est GFR (Non-Af Amer) BUN/Creatinine Ratio (10-20) Glucose (70-99) mg/dl POC Glucose 161 H 142 H 115 H (70-99) Estimat Average Glucose mg/dl Hemoglobin A1c (4.5-5.6) % Calcium (8.5-10.1) mg/dl Magnesium (1.8-2.4) mg/dl 01/24/19 01/24/19 01/24/19 Range/Units 06:25 06:20 06:20 WBC 3.25 L (4.8-10.8) K/uL RBC 4.24 L (4.7-6.1) M/uL Hgb 11.9 L (14.0-18.0) g/dL Hct 34.5 L (42-52) % MCV 81.4 (80-100) fL MCH 28.1 (25-34) pg MCHC 34.5 (32-36) g/dL RDW Std Deviation 48.7 H (36.4-46.3) fL RDW Coeff of Amandeep 17.6 H (11.5-14.5) % Plt Count 117 L (130-400) K/uL MPV 10.0 (7.4-10.4) fL Immature Gran % (Auto) 0.6 % Neut % (Auto) 54.8 % Lymph % (Auto) 14.8 % [place] % (Auto) 28.0 % Eos % (Auto) 1.5 % Baso % (Auto) 0.3 % Immature Gran # (Auto) 0.02 (0.00-0.02) K/uL Neut # (Auto) 1.78 (1.4-6.5) K/uL Lymph # (Auto) 0.48 L (1.2-3.4) K/uL [place] # (Auto) 0.91 H (0.11-0.59) K/uL Eos # (Auto) 0.05 (0-0.5) K/uL Baso # (Auto) 0.01 (0-0.2) K/uL Toxic Granulation 3+ Dohle Bodies 1+ Giant Platelets 2+ Sodium 138 (136-145) mmol/L Potassium 2.8 L D (3.5-5.1) mmol/L Chloride 108 H (98-107) mmol/L Carbon Dioxide 20 L (21-32) mmol/L Anion Gap 11.0 (3-11) BUN 22 H (7-18) mg/dl Creatinine 0.88 (0.6-1.4) mg/dl Est Cr Clr Drug Dosing 93.4 ml/min Est GFR ( Amer) 101.6 Est GFR (Non-Af Amer) 87.6 BUN/Creatinine Ratio 25.4 H (10-20) Glucose 119 H (70-99) mg/dl POC Glucose (70-99) Estimat Average Glucose 171 mg/dl Hemoglobin A1c 7.6 H (4.5-5.6) % Calcium 8.2 L (8.5-10.1) mg/dl Magnesium 1.9 (1.8-2.4) mg/dl PG Care Time/CCT Total # of Minutes Spent Total Time Spent with Patient: Total time spent is greater than 50% in coordination of care (as documented) at patient's floor/unit and/or counseling patient: (1) DM type 2 (diabetes mellitus, type 2) Diabetes mellitus complication status: without complication Diabetes mellitus assisted insulin use: with car pusher use Qualified Code(s): E11.9 - Type 2 diabetes mellitus without complications; Z79.4 - deliverer food (current) use of insulin (2) Diarrhea Diarrhea type: unspecified type Qualified Code(s): R19.7 - Diarrhea, unspecified (3) HLD (hyperlipidemia) Hyperlipidemia type: mixed hyperlipidemia Qualified Code(s): E78.2 - Mixed hyperlipidemia (4) Syncope Syncope type: unspecified Qualified Code(s): R55 - Syncope and collapse (5) HTN (hypertension) Hypertension type: essential hypertension Qualified Code(s): I10 - Essential (primary) hypertension (6) Hypotension Hypotension type: unspecified hypotension type Qualified Code(s): I95.9 - Hypotension, unspecified (7) UTI (urinary tract infection) Hematuria presence: without hematuria Urinary tract infection type: site unspecified Qualified Code(s): N39.0 - Urinary tract infection, site not specified
--- NOTE | 2019-01-24 14:48 | Cardiology Consultation ---
Date of Consultation January 24, 2019 Assessment & Plan (1) Syncope: All the initial description of his event suggests an element of orthostatic hypotension or possibly vagally mediated syncope, the event which occurred in the hospital implies that he had sustained ventricular tachycardia at home. Certainly is episode of syncope here was related to sustained ventricular tachycardia. (2) H/O aortic valve replacement: Normally functioning bioprosthetic aortic valve on echocardiography in August 2018. (3) Nonischemic cardiomyopathy: Overall he has been well compensated over the past few months. He is on an aggressive regimen to include beta-blockade, spironolactone, diuretic and Entresto. He did not complain of breathing difficulty or other symptoms of decompensated heart failure leading up to this event. (4) Afib: Permanent. No overt symptoms. Overall rate control appears adequate. Not on anticoagulation due to history of gastrointestinal hemorrhage in anemia with active colonic malignancy (5) Ventricular tachycardia, sustained: Is very likely that his degree of hypokalemia contributed to his VT. Hypokalemia likely related to gastrointestinal losses and diarrhea. He is also risk of ventricular arrhythmias based on his degree of LV dysfunction. Regardless of whether hypokalemia was involve, I do think he should consider an ICD. Even with adequate potassium replacement the cannot guarantee that he will not have additional episodes of hypokalemia. He is on a beta-penny currently and we could start amiodarone as well. However, these measures certainly do not guarantee he would not have more ventricular tachycardia and do not seem to have a big effective in reducing overall mortality. I an extensive discussion with the patient and his sister today regarding an ICD. I did recommend an ICD based on the event which occurred today. I was very clear in stating that this type of rhythm problem can be deadly. I mentioned that this is an unpredictable process and could occur at any time. I also mentioned that currently he is a DNR and if he had sustained ventricular tachycardia here in the hospital he would not be treated. He and his sister seem to understand the fact that he could in the hospital with sustained ventricular tachycardia if he continues to refuse resuscitative efforts. Seems that from his malignancy is not imminent, and in fact, there may be a chance for a better prognosis if he were to undergo surgery. I do not believe his current cardiac condition prohibits him from having surgery. He and his sister as well as other family members will discuss his options and provide me with a decision regarding implantation of an ICD during this admission. History of Present Illness Reason for Consultation: Syncope Requesting Physician: Brianda Attending Physician: Marifer Lamar MD History of Present Illness The patient is a 68-year-old gentleman with a cardiac history including a bioprosthetic aortic valve, permanent atrial fibrillation and a nonischemic cardiomyopathy who was admitted to our medical Center with syncope. It seems that the patient was on the toilet yesterday when he got up to leave the restroom and passed out. Patient was found by relative. He regained consciousness quickly. There is no significant prodrome. The patient has been feeling well recently. He did not report any specific symptoms leading up to this event except for frequent diarrhea. Patient has been battling diarrhea since initiation of his chemotherapy. He has several watery bowel movements daily. His appetite has been poor but he does not have difficulty eating or drinking. He states that he does have occasional dizziness when getting up from a sitting to standing position. He has not been aware of any palpitations. Overall his breathing has been quite good knees been very active recently. He denies any recent symptoms of chest discomfort. After admission to the hospital the patient did experience another syncopal episode associated with sustained ventricular tachycardia. He does not have any specific recollection of the event. He did not recall any prodrome. Allergies Allergy/AdvReac Type Severity Reaction Status Date / Time No Known Allergies Allergy NONE Verified 01/23/19 14:27 Home Medications Home Medications Medication Instructions Recorded Confirmed Type Complete Multi 50+ 1 tab PO QAM 08/11/18 01/23/19 History aspirin [Aspirin Low Dose] 81 mg PO QAM 08/11/18 01/23/19 History folic acid 400 mcg PO QAM 08/11/18 01/23/19 History spironolactone 25 mg PO QAM 08/11/18 01/23/19 History ascorbic acid (vitamin C) [Vitamin 500 mg PO QAM 09/07/18 01/23/19 History C] hydrocortisone [Proctosol HC] 1 applic AL UD PRN 09/07/18 01/23/19 History omega 7-vft-elx-fish oil [Fish Oil] 1 cap PO QAM 09/07/18 01/23/19 History omeprazole 20 mg PO QAM 09/07/18 01/23/19 History simvastatin 20 mg PO HS 09/07/18 01/23/19 History tamsulosin [Flomax] 0.4 mg PO PM 09/07/18 01/23/19 History carvedilol 6.25 mg tablet 12.5 mg PO BID tab 10/11/18 01/23/19 History Entresto 1 tab PO BID 11/16/18 01/23/19 History Levemir U-100 Insulin 10 unit SUBCUT HS 11/16/18 01/23/19 History amoxicillin 500 mg PO UD PRN 11/16/18 01/23/19 History ferrous gluconate 324 mg PO TID 11/16/18 01/23/19 History furosemide [Lasix] 40 mg PO DAILY 11/16/18 01/23/19 History potassium chloride [Klor-Con M20] 20 meq PO QAM 11/16/18 01/23/19 History silver sulfadiazine [Silvadene] 1 appln TOP UD PRN 11/16/18 01/23/19 History levetiracetam 500 mg tablet 250 mg PO BID tab 12/03/18 01/23/19 History Patient History Medical History Aortic stenosis Nonischemic cardiomyopathy CVA (cerebral vascular accident) 08/11/18 HLD (hyperlipidemia) HTN (hypertension) DM type 2 (diabetes mellitus, type 2) Seizure "SMALL SEIZURE AT TIME OF CVA 07/2018" BPH (benign prostatic hyperplasia) Chronic systolic (congestive) heart failure Colon cancer GERD (gastroesophageal reflux disease) Kidney disease (Chronic) AAA (abdominal aortic aneurysm) NEW FINDING Anemia Atrial fibrillation Cancer COLON CANCER (NEW DX) RADIATION JUST COMPLETED Congestive heart failure Osteoarthritis Sleep apnea Surgical History Port-A-Cath in place (Chronic) H/O aortic valve replacement (Chronic) 2010 AT [facility] H/O knee surgery RT/LEFT History of cardiac cath 2010 History of colonoscopy History of tooth extraction Family History Brother Family history of diabetes mellitus Mother Colon cancer Social History Preferred Language: Albanian Communication Ability: Effective Beliefs That Will Affect Care: Lutheran Lutheran Beliefs: Jehovia Witness marital status: Current Living Situation: Family Feels Safe at Home: Yes Smoking Status: Unknown if ever smoked Hx Alcohol Use: No Hx Substance Use: No Review of Systems Review of Systems: All systems reviewed & are unremarkable except as noted in HPI & below No recent fevers or chills. No sense of palpitation. Physical Exam Physical Exam: The patient is alert and oriented. Mood and affect appeared normal. He answered all questions appropriately. HEENT: Pupils are equal and reactive to light and accommodation. Extraocular movements are intact. The sclerae are anicteric. Neuro: Cranial nerves intact Neck: Patient's neck is supple. He has palpable carotid pulses bilaterally without bruits on auscultation. There is no evidence of jugular venous distention. The thyroid is not enlarged. Chest: Well-healed sternotomy scar. Infusion port left upper chest. Lungs: Clear to auscultation bilaterally. He has good air movement without use of accessory muscles. No rales wheezes or rhonchi. Cardiac: Heart demonstrates an irregular rate and rhythm. Normal S1 and S2. Crescendo systolic Pulses: The patient has palpable radial pulses bilaterally that are equal in intensity Extremities: There was no evidence of hypoperfusion. There is no cyanosis or clubbing. There is no edema. Skin: I did not appreciate any rashes on examination today. Results & Data Vital Signs (Past 12 Hours) Vital Signs Temp Pulse Pulse Resp BP BP Pulse Ox 01/24/19 12:09 36.8 C 82 20 103/77 92 01/24/19 07:09 36.9 C 71 18 76/49 L 84/63 L 95 01/24/19 05:51 82/41 L 01/24/19 03:30 36.7 C 78 20 100/54 L 97 Laboratory Results Abnormal Lab Results 01/23/19 01/23/19 01/23/19 15:40 18:06 20:25 WBC RBC Hgb Hct MCV MCH MCHC RDW Std Deviation RDW Coeff of Amandeep Plt Count MPV Immature Gran % (Auto) Neut % (Auto) Lymph % (Auto) Bibb % (Auto) Eos % (Auto) Baso % (Auto) Immature Gran # (Auto) Neut # (Auto) Lymph # (Auto) Bibb # (Auto) Eos # (Auto) Baso # (Auto) Toxic Granulation Dohle Bodies Giant Platelets Sodium 138 Potassium 2.3 L* Chloride 105 Carbon Dioxide 22 Anion Gap 11.0 BUN 27 H Creatinine 0.90 Est Cr Clr Drug Dosing 90.7 Est GFR ( Amer) 100.6 Est GFR (Non-Af Amer) 86.8 BUN/Creatinine Ratio 30.5 H Glucose 114 H POC Glucose 131 H Estimat Average Glucose Hemoglobin A1c Calcium 7.9 L Magnesium 1.8 Urine Color Yellow Urine Appearance Cloudy A Urine pH 6.0 Ur Specific [place] 1.013 Urine Protein 1+ H Urine Glucose (UA) Negative Urine Ketones Negative Urine Blood 1+ H Urine Nitrite Negative Urine Bilirubin Negative Urine Urobilinogen Negative Ur Leukocyte Esterase 2+ H Urine WBC (Auto) >30 H Urine RBC (Auto) 0-4 U Hyaline Cast (Auto) 1-5 U Epithel Cells (Auto) 0-5 Urine Bacteria (Auto) 3+ H 01/24/19 01/24/19 01/24/19 06:20 06:20 06:25 WBC 3.25 L RBC 4.24 L Hgb 11.9 L Hct 34.5 L MCV 81.4 MCH 28.1 MCHC 34.5 RDW Std Deviation 48.7 H RDW Coeff of Amandeep 17.6 H Plt Count 117 L MPV 10.0 Immature Gran % (Auto) 0.6 Neut % (Auto) 54.8 Lymph % (Auto) 14.8 Bibb % (Auto) 28.0 Eos % (Auto) 1.5 Baso % (Auto) 0.3 Immature Gran # (Auto) 0.02 Neut # (Auto) 1.78 Lymph # (Auto) 0.48 L Bibb # (Auto) 0.91 H Eos # (Auto) 0.05 Baso # (Auto) 0.01 Toxic Granulation 3+ Dohle Bodies 1+ Giant Platelets 2+ Sodium 138 Potassium 2.8 L D Chloride 108 H Carbon Dioxide 20 L Anion Gap 11.0 BUN 22 H Creatinine 0.88 Est Cr Clr Drug Dosing 93.4 Est GFR ( Amer) 101.6 Est GFR (Non-Af Amer) 87.6 BUN/Creatinine Ratio 25.4 H Glucose 119 H POC Glucose Estimat Average Glucose 171 Hemoglobin A1c 7.6 H Calcium 8.2 L Magnesium 1.9 Urine Color Urine Appearance Urine pH Ur Specific [place] Urine Protein Urine Glucose (UA) Urine Ketones Urine Blood Urine Nitrite Urine Bilirubin Urine Urobilinogen Ur Leukocyte Esterase Urine WBC (Auto) Urine RBC (Auto) U Hyaline Cast (Auto) U Epithel Cells (Auto) Urine Bacteria (Auto) 01/24/19 01/24/19 01/24/19 07:07 09:52 11:09 WBC RBC Hgb Hct MCV MCH MCHC RDW Std Deviation RDW Coeff of Amandeep Plt Count MPV Immature Gran % (Auto) Neut % (Auto) Lymph % (Auto) Bibb % (Auto) Eos % (Auto) Baso % (Auto) Immature Gran # (Auto) Neut # (Auto) Lymph # (Auto) Bibb # (Auto) Eos # (Auto) Baso # (Auto) Toxic Granulation Dohle Bodies Giant Platelets Sodium Potassium Chloride Carbon Dioxide Anion Gap BUN Creatinine Est Cr Clr Drug Dosing Est GFR ( Amer) Est GFR (Non-Af Amer) BUN/Creatinine Ratio Glucose POC Glucose 115 H 142 H 161 H Estimat Average Glucose Hemoglobin A1c Calcium Magnesium Urine Color Urine Appearance Urine pH Ur Specific [place] Urine Protein Urine Glucose (UA) Urine Ketones Urine Blood Urine Nitrite Urine Bilirubin Urine Urobilinogen Ur Leukocyte Esterase Urine WBC (Auto) Urine RBC (Auto) U Hyaline Cast (Auto) U Epithel Cells (Auto) Urine Bacteria (Auto) Diagnostic Findings Echocardiogram performed 09/16/2018: Ejection fraction 30 35 percent. Moderately reduced right ventricular function. Severe biatrial dilation. Mild to moderate mitral regurgitation. Severe mitral annular calcification. ECG Additional Comments: Atrial fibrillation with controlled ventricular response. Nonspecific interventricular conduction delay. (1) Syncope Syncope type: unspecified Qualified Code(s): R55 - Syncope and collapse (2) Afib Atrial fibrillation type: chronic Qualified Code(s): I48.2 - Chronic atrial fibrillation
[2019-01-24 15:12] LABS: BUN Creatinine Ratio 19.9 (10-20); Calcium 8.2 mg/dl (8.5-10.1); Creatinine Clr Calc Pharmacy 94.4 ml/min; Est GFR (African American) 102.1; Est GFR (Non-African American) 88.1; Potassium 3.2 mmol/L (3.5-5.1)
[2019-01-24] MEDS: ACETAMINOPHEN 325 MG TAB PO PRN (16:28)
[2019-01-24] MEDS ORDERED: POTASSIUM CHLORIDE 20 MEQ TABCR PO STA (16:36)
[2019-01-24] MEDS: POTASSIUM CHLORIDE / WTR 20 MEQ/100 ML PLCT IV SCH ×2 (16:57→18:49)
[2019-01-24] MEDS: SIMVASTATIN 20 MG TAB PO SCH (20:02)
[2019-01-24] MEDS: DICLOFENAC SOD 1% GEL 100 GM TUBE EXT SCH ×2 (20:02→20:10)
[2019-01-24] MEDS: INSULIN DETEMIR FLEXPEN/FLEX TOUCH 100 UNITS/ML 3ML SC SCH (20:09)
[2019-01-25] MEDS: SODIUM CHLORIDE 0.9% 1000ML 1,000 ML IV SCH ×2 (04:49→11:58)
[2019-01-25 05:59] LABS: Basophils # (auto) 0.01 K/uL (0-0.2); Basophils % (auto) 0.2 %; Eosinophils # (auto) 0.06 K/uL (0-0.5); Eosinophils % (auto) 1.4 %; Hematocrit (blood only) 34.6 % (42-52); Hemoglobin 11.8 g/dL (14.0-18.0); Immature Granulocytes # (auto) 0.03 K/uL (0.00-0.02); Immature Granulocytes % (auto) 0.7 %; Lymphocytes # (auto) 0.84 K/uL (1.2-3.4); Lymphocytes % (auto) 19.4 %; Mean Corpuscular Hgb Conc 34.1 g/dL (32-36); Mean Platelet Volume 9.9 fL (7.4-10.4); Monocytes # (auto) 0.83 K/uL (0.11-0.59); Monocytes % (auto) 19.2 %; Neutrophils # (auto) 2.55 K/uL (1.4-6.5); Neutrophils % (auto) 59.1 %; Platelet Count 132 K/uL (130-400); RDW Coefficient of Variation 18.1 % (11.5-14.5); RDW Standard Deviation 51.5 fL (36.4-46.3); Red Blood Count 4.12 M/uL (4.7-6.1); White Blood Count 4.32 K/uL (4.8-10.8)
[2019-01-25 06:31] LABS: BUN Creatinine Ratio 18.2 (10-20); Calcium 8.1 mg/dl (8.5-10.1); Creatinine Clr Calc Pharmacy 107.4 ml/min; Est GFR (African American) 106.2; Est GFR (Non-African American) 91.6; Phosphorus 1.6 mg/dl (2.5-4.9); Potassium 3.6 mmol/L (3.5-5.1)
[2019-01-25] MEDS: INSULIN ASPART 100 UNITS/ML 3 ML PEN SC SCH ×4 (08:12→21:01)
[2019-01-25] MEDS: cefTRIAXone SODIUM 2,000 MG in DEXTROSE 5% 50 ML IV SCH (08:20)
[2019-01-25] MEDS ORDERED: POTASSIUM PHOS 3 MMOL/1 ML INFUSION IV STA (08:24)
[2019-01-25] MEDS: FOLIC ACID 400 MCG TAB PO SCH (08:28)
[2019-01-25] MEDS: FERROUS GLUCONATE 324 MG TAB PO SCH ×3 (08:28→20:58)
[2019-01-25] MEDS: ASPIRIN 81 MG ECTAB PO SCH (08:28)
[2019-01-25] MEDS: levETIRAcetam 250 MG TAB PO SCH ×2 (08:28→20:59)
[2019-01-25] MEDS: MULTIVITAMIN TAB PO SCH (08:29)
[2019-01-25] MEDS: POTASSIUM CHLORIDE 20 MEQ TABCR PO SCH (08:29)
[2019-01-25] MEDS: ASCORBIC ACID 500 MG TAB PO SCH (08:29)
[2019-01-25] MEDS: DICLOFENAC SOD 1% GEL 100 GM TUBE EXT SCH ×4 (08:30→20:56)
[2019-01-25] MEDS ORDERED: POTASSIUM PHOSPHATE 21 MMOL in SODIUM CHLORIDE 0.9% 500 ML IV ONE (09:00)
[2019-01-25] MEDS: PANTOprazole 40 MG TAB PO SCH (09:02)
--- NOTE | 2019-01-25 14:09 | Pre Anesthesia Assessment ---
Date of Service January 25, 2019 Pre Sedation Assessment Vital Signs Temp Pulse Pulse Pulse Pulse Resp BP 01/25/19 11:32 36.5 C 85 18 103/73 01/25/19 08:45 64 01/25/19 07:17 36.9 C 72 17 82/56 L 01/25/19 03:40 36.5 C 77 20 108/74 01/25/19 00:25 69 01/24/19 23:07 36.7 C 72 18 103/57 L 01/24/19 19:16 36.5 C 74 18 104/76 01/24/19 16:00 81 71 88/52 L 01/24/19 15:47 36.7 C 78 17 109/68 Pulse Ox 01/25/19 11:32 92 01/25/19 08:45 01/25/19 07:17 97 01/25/19 03:40 97 01/25/19 00:25 01/24/19 23:07 96 01/24/19 19:16 97 01/24/19 16:00 01/24/19 15:47 96 Cardiovascular + irregularly irregular Respiratory + respiratory effort normal Pre-Sedation Airway Assessment Smoking Status: Unknown if ever smoked Hx Sleep Apnea: No Hx Difficult Intubation: No Short, Thick Neck: No Thyromental Distance: > or= 3.5 Finger Breadths Oral Cavity: + WNL Mallampati Class: III ASA: ASA3 Procedure Planning Contraindications for Sedation: none Current Medications Reviewed: Yes Notes The planned sedation has been discussed with the patient. Informed Consent was obtained. I have identified the patient, determined the appropriateness of sedation and have assessed the patient immediately prior to the procedure. All medicine(s) and interventions are by my order.
--- NOTE | 2019-01-25 14:12 | Cardiology Progress Note ---
Date of Service January 25, 2019 Assessment & Plan (1) Syncope: Secondary to ventricular tachycardia. (2) H/O aortic valve replacement: Normally functioning bioprosthetic aortic valve on echocardiography in August 2018. (3) Nonischemic cardiomyopathy: Overall he has been well compensated over the past few months. He is on an aggressive regimen to include beta-blockade, spironolactone, diuretic and Entresto. He did not complain of breathing difficulty or other symptoms of decompensated heart failure leading up to this event. (4) Afib: Permanent. No overt symptoms. Overall rate control appears adequate. Not on anticoagulation due to history of gastrointestinal hemorrhage and anemia with active colonic malignancy (5) Ventricular tachycardia, sustained: I had a long discussion with the patient's family yesterday regarding the utility of a defibrillator. He seems to have reasonable longevity with respect to his known malignancy. He discussed the issues with his family and has decided to proceed with a defibrillator. Curiously, he has not had much in the way of additional arrhythmic events since his potassium was replaced. However, I think he is at risk of recurrent hypokalemia given the chronic nature of his diarrhea and as result, recurrent ventricular tachycardia provided this contributed to his events. There was some concern regarding his chemotherapy and high risk of infection or poor wound healing. If the patient was nearing the end of his required chemotherapy we could place a where bbl defibrillator in till it was completed. However, the patient has several months of chemotherapy left and this would seem impractical. I think we will proceed with all the precautions we can take and hope for the best healing. Subjective This morning the patient clearly feeling well. He reportedly had a restful evening. No complaints of chest pain currently. No breathing difficulties. No sense of palpitation. Review of Systems Review of Systems: Per HPI Physical Exam Physical Exam: The patient is alert and oriented. Mood and affect appeared normal. He answered all questions appropriately. HEENT: Pupils are equal and reactive to light and accommodation. Extraocular movements are intact. The sclerae are anicteric. Neuro: Cranial nerves intact Lungs: Clear to auscultation bilaterally. He has good air movement without use of accessory muscles. No rales wheezes or rhonchi. Cardiac: Heart demonstrates an irregular rate and rhythm. Pulses: The patient has palpable radial pulses bilaterally that are equal in intensity Chest: Infusion port left upper chest. Results & Data Vital Signs (Past 12 Hours) Vital Signs Temp Pulse Pulse Resp BP Pulse Ox 01/25/19 11:32 36.5 C 85 18 103/73 92 01/25/19 08:45 64 01/25/19 07:17 36.9 C 72 17 82/56 L 97 01/25/19 03:40 36.5 C 77 20 108/74 97 Laboratory Results Abnormal Lab Results 01/24/19 01/24/19 01/24/19 14:36 16:07 20:06 WBC RBC Hgb Hct MCV MCH MCHC RDW Std Deviation RDW Coeff of Amandeep Plt Count MPV Immature Gran % (Auto) Neut % (Auto) Lymph % (Auto) [place] % (Auto) Eos % (Auto) Baso % (Auto) Immature Gran # (Auto) Neut # (Auto) Lymph # (Auto) [place] # (Auto) Eos # (Auto) Baso # (Auto) Sodium 137 Potassium 3.2 L Chloride 108 H Carbon Dioxide 21 Anion Gap 8.0 BUN 17 Creatinine 0.87 Est Cr Clr Drug Dosing 94.4 Est GFR ( Amer) 102.1 Est GFR (Non-Af Amer) 88.1 BUN/Creatinine Ratio 19.9 Glucose 154 H POC Glucose 132 H 116 H Calcium 8.2 L Phosphorus Magnesium 01/25/19 01/25/19 01/25/19 05:41 05:41 07:15 WBC 4.32 L RBC 4.12 L Hgb 11.8 L Hct 34.6 L MCV 84.0 MCH 28.6 MCHC 34.1 RDW Std Deviation 51.5 H RDW Coeff of Amandeep 18.1 H Plt Count 132 MPV 9.9 Immature Gran % (Auto) 0.7 Neut % (Auto) 59.1 Lymph % (Auto) 19.4 [place] % (Auto) 19.2 Eos % (Auto) 1.4 Baso % (Auto) 0.2 Immature Gran # (Auto) 0.03 H Neut # (Auto) 2.55 Lymph # (Auto) 0.84 L [place] # (Auto) 0.83 H Eos # (Auto) 0.06 Baso # (Auto) 0.01 Sodium 141 Potassium 3.6 Chloride 113 H Carbon Dioxide 24 Anion Gap 4.0 BUN 14 Creatinine 0.79 Est Cr Clr Drug Dosing 107.4 Est GFR ( Amer) 106.2 Est GFR (Non-Af Amer) 91.6 BUN/Creatinine Ratio 18.2 Glucose 82 POC Glucose 77 Calcium 8.1 L Phosphorus 1.6 L Magnesium 2.0 01/25/19 11:09 WBC RBC Hgb Hct MCV MCH MCHC RDW Std Deviation RDW Coeff of Amandeep Plt Count MPV Immature Gran % (Auto) Neut % (Auto) Lymph % (Auto) [place] % (Auto) Eos % (Auto) Baso % (Auto) Immature Gran # (Auto) Neut # (Auto) Lymph # (Auto) [place] # (Auto) Eos # (Auto) Baso # (Auto) Sodium Potassium Chloride Carbon Dioxide Anion Gap BUN Creatinine Est Cr Clr Drug Dosing Est GFR ( Amer) Est GFR (Non-Af Amer) BUN/Creatinine Ratio Glucose POC Glucose 77 Calcium Phosphorus Magnesium (1) Syncope Syncope type: unspecified Qualified Code(s): R55 - Syncope and collapse (2) Afib Atrial fibrillation type: chronic Qualified Code(s): I48.2 - Chronic atrial fibrillation
[2019-01-25] MEDS ORDERED: LIDOCAINE HCL 1% 20 ML VIAL ONE (14:44)
[2019-01-25] MEDS ORDERED: BUPIVACAINE 0.25% 30 ML VIAL ONE (14:44)
[2019-01-25] MEDS ORDERED: BACITRACIN INJ 50,000 UNIT VIAL ONE (14:44)
[2019-01-25] MEDS ORDERED: fentaNYL citrate 100 MCG/2 ML VIAL ONE (15:04)
[2019-01-25] MEDS ORDERED: CEFAZOLIN 250 MG/ML 1 GM VIAL ONE (15:04)
[2019-01-25] MEDS ORDERED: MIDAZOLAM HCL 5 MG/ML 1 ML VIAL ONE (15:07)
--- NOTE | 2019-01-25 15:08 | XRay Report ---
XR knee LT 2V routine, XR knee RT 2V routine HISTORY: 68 years-old Male fall, knee pain chronic bilateral knee pain without reported trauma COMPARISON: None available TECHNIQUE: 2 views of the bilateral knees FINDINGS: LEFT: Severe tricompartmental osteoarthritis with large joint effusion. Calcified debris is noted within th e joint effusion with probable associated intra-articular loose bodies. 10 mm lateral translation of the distal femur in relation to the tibia likely secondary to chronic remodeling changes. No acute fr acture or dislocation. RIGHT: Moderate tricompartmental osteoarthritis with prominent osteophytic spurring about the patellofemoral joint. Chondrocalcinosis with small to moderate joint effusion. Calcified debris noted about the shara nt space. No acute fracture or dislocation. IMPRESSION: 1. No acute fracture or dislocation about the right or left knee. 2. Tricompartmental osteoarthritis of the knees, severe on the left. 3. Large left and small to moderate right joint effusions. The above report was generated using voice recognition software. It may contain grammatical, syntax o r spelling errors. Electronically signed by: Edgar Davis M.D. 01/25/2019 3:06 PM
--- NOTE | 2019-01-25 16:08 | Procedure Note ---
Procedure Note Date of Service January 25, 2019 Supervising Physician Co-Signing Physician Notes Procedure performed: Implantation of single-chamber ICD Staff hat cone inspector: Jean-Claude Leone MD Indication: Patient is a 68-year-old gentleman admitted with sustained ventricular tachycardia. A device was placed as secondary prevention of sudden cardiac . Procedure in detail: The patient was informed of the risks benefits and alternatives to the intended procedure and she wished to proceed. He was taken to the electrophysiology suite in a fasting state. A preoperative antibiotic had been administered. The patient was monitored electrocardiographically throughout today's procedure and conscious sedation was administered per protocol. The left upper pectoral area is prepped and draped in usual sterile fashion. This area was anesthetized using subcutaneous administration of a xylocaine solution. An incision was made at this site and carried down to the prepectoralis fascia using sharp dissection. Electrocautery was also employed for dissection as well as for hemostasis. A device pocket was fashioned tissues above the pectoralis muscle. Subsequent to this maneuver the left axillary vein was accessed using modified Seldinger technique. Sheaths were placed over guidewires at this site and used to facilitate passage of the pacing leads to the respective chambers under fluoroscopic guidance. This included right atrial and right ventricular leads. Adequate sensing and threshold parameters were obtained prior to Active fixation of the leads to the endocardial surface. The proximal portion leads were then sutured the prepectoral fascia using nonabsorbable suture. The device pocket was irrigated with antibiotic solution. The leads were then attached to the device. The device and leads were then placed in the pocket and pocket was closed in 3 layers of absorbable suture. Steri-Strips and sterile dressing were applied. The device was tested noninvasively prior to conclusion the procedure. The patient tolerated procedure well there no immediate complications. Equipment used: New pulse generator: Panel Lay Up Worker [employer]. Model number: [id number] serial number [id number] Right ventricular lead: Panel Lay Up Worker [employer]. Model number: 6935M serial number [id number] Measured data: Right ventricular lead: R waves measured 10.3 mV. Pacing thresholds 0.5 V at 0.4 ms with a pacing impedance of 361 ohms Impression: Successful implantation of dual-chamber ICD Coding
[2019-01-25] MEDS ORDERED: OXYCODONE HCL IR 5 MG TAB (IMMEDIATE RELEASE) PO PRN (16:10)
[2019-01-25] MEDS ORDERED: KETOROLAC TROMETHAMINE 15 MG/ML VIAL IV PRN (18:29)
--- NOTE | 2019-01-25 18:45 | Hospitalist Progress Note ---
Date of Service January 25, 2019 Assessment & Plan (1) Syncope: This patient is a 68-year-old male with a history of colon cancer status post radiation and currently on chemotherapy, chronic diarrhea, aortic valve replacement, chronic systolic CHF, A. fib, DM 2, BPH, hyperlipidemia, GERD, CKD stage III, and the left MCA territory CVA, who presents to the ER after passing out in the bathroom today. He reports he was having his usual diarrhea and sitting on the toilet and he stood up and reached for the bathroom spray and the next thing he remembers is waking up on his knees facedown on the floor. His brother was in the bathroom when it happened and found him and called for an ambulance. He has never passed out before. He denies any chest pain or palpitations prior to when it happened. He does note that he has had 4-5 loose stools daily for the last 6 to 12 months and that this has not worsened lately. His blood pressures have been quite low in the last month or so, systolic blood pressure never above 100. In fact, his cardiology PA recently lowered a lot of his medications that were affecting his blood pressure because of this. In the ER, he was found to have blood pressure in the 70s systolic and he was given boluses of IV fluids with improvement to the 80s. He was mentating well. He was also hypokalemic and hypomagnesemic and these were being replaced at the time of admission. Otherwise, patient denies fevers or headaches, denies chest pain shortness of breath, denies abdominal pain. He has a small skin tear in the left dorsal hand which occurred during the fall, but denies any other joint pains or injuries anywhere else. 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 Syncope-initially thought to be related to hypotension and dehydration from chronic diarrhea, chemotherapy with poor p.o. intake over the last week, and continued chronic diarrhea. However, he then had an episode of sustained ventricular tachycardia lasting 1- 1/2 minutes with resultant syncope witnessed in the hospital on 01/24-it is l ikely that the syncope he had at home prior to admission was also due to sustained ventricular tachycardia No further VT and now s/p ICD placement on 01/25 -continue replacing potassium and magnesium, phosphorus as needed -Cardiology consultation obtained-appreciate management -Not adding amiodarone at this time as it will not likely improve mortality as per cardiology -Follow serial BMP, Mg, Phos and replace electrolytes as needed -Continue telemetry monitoring -will now dc IV fluids that were given for persistent hypotension -dc orthostatics as they have been normal -His home Lasix, carvedilol, Entresto, and spironolactone, are all on hold at this time due to low blood pressures-continue to hold for now (2) Ventricular tachycardia, sustained: With documented 1 minute 20 seconds of sustained ventricular tachycardia with episode of syncope, maintained his pulse throughout on 01/24 Hypokalemia likely contributed, but also with low EF -Cardiology consulted-now s/p ICD placement this admission (3) Hypotension: Secondary to issues as above -hydrated with IV fluids and improved but remains low in 90s-100 systolic which is his normal -Continue holding home carvedilol, Entresto, Lasix, spironolactone, and tamsulosin -Follow blood pressures No need for vasopressors at this time (4) Hypokalemia: Potassium 2.9 on admission likely secondary to GI losses and diuretic use, continued to be severely low secondary to diarrhea, and likely contributed to his sustained ventricular tachycardia K+ finally improving today but still remains slightly low, goal is >4.0 -Continue to replace with IV and p.o. potassium -Follow BMP -replace Magnesium as needed (5) Hypomagnesemia: Magnesium low at 1.7 on admission could be secondary to GI losses, now improved after replacement -Follow magnesium level in the morning (6) Kidney disease: CKD stage II-III Currently creatinine is excellent at 0.79 -Avoid nephrotoxins -Renally dose medications -Follow BMP (7) Atrial fibrillation: Permanent Not on anticoagulation due to previous rectal bleeding colon cancer Holding carvedilol due to hypotension as above -Monitor on telemetry (8) Colon cancer: Diagnosed earlier in 2019. Status post radiation therapy and currently on chemotherapy-was due for next treatment on 01/24 Was previously told he would not be a good candidate for surgery due to comorbidities Cardiology here does not think his cardiac issues are prohibitive of him having colorectal surgery-> discussed with pt and his family and they will continue to follow on this issue after discharge to see if he could possibly pursue surgical resection -Consult oncology appreciated-chemotherapy on hold for now -Supportive care -f/u Oncology after dc (9) Nonischemic cardiomyopathy: Most recent EF is 35% Clearly was dehydrated upon admission-now euvolemic -dc IV fluids as above -continue holding diuretics and other cardiac medications at this time -Watch for volume overload (10) HLD (hyperlipidemia): Continue statin (11) HTN (hypertension): Holding home meds for hypotension as above (12) DM type 2 (diabetes mellitus, type 2): -Give home Levemir and will give sliding scale insulin, Accu-Cheks Diabetic diet (13) Seizure: Continue home Keppra (14) H/O aortic valve replacement: Replaced in 2010 Bioprosthetic Stable and functioning well most recent echocardiogram (15) GERD (gastroesophageal reflux disease): Continue PPI (16) BPH (benign prostatic hyperplasia): No current issues with retention Holding tamsulosin as above for hypotension (17) Chronic systolic (congestive) heart failure: As above (18) Diarrhea: Chronic for the last year as per family -Supportive care, replace electrolytes--> diarrhea definitely contributes to his electrolyte abnormalities which likely contributed to his VT -has tried loperamide and Lomotil to no avail. ALso tried Metamucil -trial of cholestyramine packet bid (19) UTI (urinary tract infection): Abnormal UA on admission Urine culture with E. coli, pansensitive -Continue Rocephin daily and convert to p.o. antibiotics tomorrow (20) Knee pain, bilateral: Bilateral L>R acute knee pain since falling onto his knees during syncopal episode prior to admission. Now with severe pain L>R and large effusion on left, moderate on right Xrays with severe OA and lateral translocation of femur on tibia on left with large effusion; right with mod OA and mod effusion No signs or symptoms of infection or septic joint Voltaren gel and tylenol, oxycodone not helping. -continue ice packs -trial of toradol prn -consult Orthopedic Surgery to see about aspiration (21) DVT prophylaxis: GADIEL cortes, SCDs Hold chemical anticoagulation at this time due to recent epistaxis with head trauma and history of GI bleeding Disposition-continued PCU stay Subjective Pt having severe L>R knee pain since yesterday with knee swelling. He has a lot of pain with ambulation but is able to "walk like an old man." Oxycodone he received for his ICD wound is not touching the pain in his knees. He had an ICD placed today, had no further V-tach on tele since yesterday. Denies chest pain or SOB, no lightheadedness, no N/V, no abd pain. Tele with A-fib and flutter, PVCs and couplets, rates 50s-70s. I discussed the case with Cardiology today Review of Systems 2 Review of Systems: All systems reviewed & are unremarkable except as noted in HPI & below Physical Exam Constitutional: WD/WN, vitals as above + ill appearing; no acute distress and not diaphoretic Eyes: PERRL, conjunctivae normal, anicteric sclerae ENMT: external ear and nose normal, oropharynx normal Neck: trachea midline, no thyromegaly Respiratory: normal respiratory effort, lungs clear to auscultation Cardiovascular: Rate/Rhythm: regular rate and + irregularly irregular Heart Sounds: + murmur (2/6 DANELLE at RUSB) Extremities: no edema Gastrointestinal (Abdomen): normal bowel sounds, soft, nontender, no hep atosplenomegaly Musculoskeletal: Extremities: + extremities abnormal to inspection, no cyanosis and no clubbing Knee: + knee abnormal to inspection, + effusion (bilat L>>R), + surgical incision (left medial knee) and + limited ROM of knee (active ROM causes severe pain on Left, but ROM 0-90 with passive ROM;R0-100); no skin erythema and no joint line tenderness Skin: + wound (L dorsal hand skin tear, covered; R hand dorsal with old skin tears) Neurologic: moves all extremities and awake; no focal motor deficits Psychiatric: A+Ox3, euthymic affect Results & Data Vital Signs (Past 12 Hours) Vital Signs Temp Pulse Pulse Resp BP Pulse Ox 01/25/19 11:32 36.5 C 85 18 103/73 92 01/25/19 08:45 64 01/25/19 07:17 36.9 C 72 17 82/56 L 97 Laboratory Results 01/25/19 01/25/19 01/25/19 Range/Units 16:38 16:21 11:09 WBC (4.8-10.8) K/uL RBC (4.7-6.1) M/uL Hgb (14.0-18.0) g/dL Hct (42-52) % MCV (80-100) fL MCH (25-34) pg MCHC (32-36) g/dL RDW Std Deviation (36.4-46.3) fL RDW Coeff of Amandeep (11.5-14.5) % Plt Count (130-400) K/uL MPV (7.4-10.4) fL Immature Gran % (Auto) % Neut % (Auto) % Lymph % (Auto) % Bacon % (Auto) % Eos % (Auto) % Baso % (Auto) % Immature Gran # (Auto) (0.00-0.02) K/uL Neut # (Auto) (1.4-6.5) K/uL Lymph # (Auto) (1.2-3.4) K/uL Bacon # (Auto) (0.11-0.59) K/uL Eos # (Auto) (0-0.5) K/uL Baso # (Auto) (0-0.2) K/uL Sodium (136-145) mmol/L Potassium (3.5-5.1) mmol/L Chloride (98-107) mmol/L Carbon Dioxide (21-32) mmol/L Anion Gap (3-11) BUN (7-18) mg/dl Creatinine (0.6-1.4) mg/dl Est Cr Clr Drug Dosing ml/min Est GFR ( Amer) Est GFR (Non-Af Amer) BUN/Creatinine Ratio (10-20) Glucose (70-99) mg/dl POC Glucose 70 67 L* 77 (70-99) Calcium (8.5-10.1) mg/dl Phosphorus (2.5-4.9) mg/dl Magnesium (1.8-2.4) mg/dl 01/25/19 01/25/19 01/25/19 Range/Units 07:15 05:41 05:41 WBC 4.32 L (4.8-10.8) K/uL RBC 4.12 L (4.7-6.1) M/uL Hgb 11.8 L (14.0-18.0) g/dL Hct 34.6 L (42-52) % MCV 84.0 (80-100) fL MCH 28.6 (25-34) pg MCHC 34.1 (32-36) g/dL RDW Std Deviation 51.5 H (36.4-46.3) fL RDW Coeff of Amandeep 18.1 H (11.5-14.5) % Plt Count 132 (130-400) K/uL MPV 9.9 (7.4-10.4) fL Immature Gran % (Auto) 0.7 % Neut % (Auto) 59.1 % Lymph % (Auto) 19.4 % Bacon % (Auto) 19.2 % Eos % (Auto) 1.4 % Baso % (Auto) 0.2 % Immature Gran # (Auto) 0.03 H (0.00-0.02) K/uL Neut # (Auto) 2.55 (1.4-6.5) K/uL Lymph # (Auto) 0.84 L (1.2-3.4) K/uL Bacon # (Auto) 0.83 H (0.11-0.59) K/uL Eos # (Auto) 0.06 (0-0.5) K/uL Baso # (Auto) 0.01 (0-0.2) K/uL Sodium 141 (136-145) mmol/L Potassium 3.6 (3.5-5.1) mmol/L Chloride 113 H (98-107) mmol/L Carbon Dioxide 24 (21-32) mmol/L Anion Gap 4.0 (3-11) BUN 14 (7-18) mg/dl Creatinine 0.79 (0.6-1.4) mg/dl Est Cr Clr Drug Dosing 107.4 ml/min Est GFR ( Amer) 106.2 Est GFR (Non-Af Amer) 91.6 BUN/Creatinine Ratio 18.2 (10-20) Glucose 82 (70-99) mg/dl POC Glucose 77 (70-99) Calcium 8.1 L (8.5-10.1) mg/dl Phosphorus 1.6 L (2.5-4.9) mg/dl Magnesium 2.0 (1.8-2.4) mg/dl 01/24/19 Range/Units 20:06 WBC (4.8-10.8) K/uL RBC (4.7-6.1) M/uL Hgb (14.0-18.0) g/dL Hct (42-52) % MCV (80-100) fL MCH (25-34) pg MCHC (32-36) g/dL RDW Std Deviation (36.4-46.3) fL RDW Coeff of Amandeep (11.5-14.5) % Plt Count (130-400) K/uL MPV (7.4-10.4) fL Immature Gran % (Auto) % Neut % (Auto) % Lymph % (Auto) % Bacon % (Auto) % Eos % (Auto) % Baso % (Auto) % Immature Gran # (Auto) (0.00-0.02) K/uL Neut # (Auto) (1.4-6.5) K/uL Lymph # (Auto) (1.2-3.4) K/uL Bacon # (Auto) (0.11-0.59) K/uL Eos # (Auto) (0-0.5) K/uL Baso # (Auto) (0-0.2) K/uL Sodium (136-145) mmol/L Potassium (3.5-5.1) mmol/L Chloride (98-107) mmol/L Carbon Dioxide (21-32) mmol/L Anion Gap (3-11) BUN (7-18) mg/dl Creatinine (0.6-1.4) mg/dl Est Cr Clr Drug Dosing ml/min Est GFR ( Amer) Est GFR (Non-Af Amer) BUN/Creatinine Ratio (10-20) Glucose (70-99) mg/dl POC Glucose 116 H (70-99) Calcium (8.5-10.1) mg/dl Phosphorus (2.5-4.9) mg/dl Magnesium (1.8-2.4) mg/dl Diagnostic Findings Knee xrays personally reviewed by me and agree with the following reports: XR knee LT 2V routine, XR knee RT 2V routine HISTORY: 68 years-old Male fall, knee pain chronic bilateral knee pain without reported trauma COMPARISON: None available TECHNIQUE: 2 views of the bilateral knees FINDINGS: LEFT: Severe tricompartmental osteoarthritis with large joint effusion. Calcified debris is noted within the joint effusion with probable associated intra- articular loose bodies. 10 mm lateral translation of the distal femur in relation to the tibia likely secondary to chronic remodeling changes. No acute fracture or dislocation. RIGHT: Moderate tricompartmental osteoarthritis with prominent osteophytic spurring about the patellofemoral joint. Chondrocalcinosis with small to moderate joint effusion. Calcified debris noted about the joint space. No acute fracture or dislocation. IMPRESSION: 1. No acute fracture or dislocation about the right or left knee. 2. Tricompartmental osteoarthritis of the knees, severe on the left. 3. Large left and small to moderate right joint effusions. PG Care Time/CCT Total # of Minutes Spent Total Time Spent with Patient: Total time spent is greater than 50% in coordination of care (as documented) at patient's floor/unit and/or counseling patient: (1) Syncope Syncope type: unspecified Qualified Code(s): R55 - Syncope and collapse (2) Hypotension Hypotension type: unspecified hypotension type Qualified Code(s): I95.9 - Hypotension, unspecified (3) HLD (hyperlipidemia) Hyperlipidemia type: mixed hyperlipidemia Qualified Code(s): E78.2 - Mixed hyperlipidemia (4) HTN (hypertension) Hypertension type: essential hypertension Qualified Code(s): I10 - Essential (primary) hypertension (5) DM type 2 (diabetes mellitus, type 2) 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
[2019-01-25] MEDS: SIMVASTATIN 20 MG TAB PO SCH (20:59)
[2019-01-25] MEDS: INSULIN DETEMIR FLEXPEN/FLEX TOUCH 100 UNITS/ML 3ML SC SCH (21:02)
[2019-01-25] MEDS: CHOLESTYRAMINE LIGHT 4 GM PKT PO SCH (22:27)
[2019-01-26 06:19] LABS: Basophils # (auto) 0.02 K/uL (0-0.2); Basophils % (auto) 0.4 %; Eosinophils # (auto) 0.09 K/uL (0-0.5); Eosinophils % (auto) 1.7 %; Hematocrit (blood only) 39.5 % (42-52); Hemoglobin 13.5 g/dL (14.0-18.0); Immature Granulocytes # (auto) 0.06 K/uL (0.00-0.02); Immature Granulocytes % (auto) 1.1 %; Lymphocytes # (auto) 1.01 K/uL (1.2-3.4); Lymphocytes % (auto) 18.9 %; Mean Corpuscular Hgb Conc 34.2 g/dL (32-36); Mean Corpuscular Volume 83.7 fL (80-100); Mean Platelet Volume 10.2 fL (7.4-10.4); Monocytes # (auto) 0.82 K/uL (0.11-0.59); Monocytes % (auto) 15.4 %; Neutrophils # (auto) 3.34 K/uL (1.4-6.5); Neutrophils % (auto) 62.5 %; Platelet Count 149 K/uL (130-400); RDW Coefficient of Variation 18.9 % (11.5-14.5); RDW Standard Deviation 53.9 fL (36.4-46.3); Red Blood Count 4.72 M/uL (4.7-6.1); White Blood Count 5.34 K/uL (4.8-10.8)
[2019-01-26 06:58] LABS: BUN Creatinine Ratio 14.3 (10-20); Calcium 8.6 mg/dl (8.5-10.1); Creatinine Clr Calc Pharmacy 84.6 ml/min; Est GFR (African American) 89.7; Est GFR (Non-African American) 77.4; Magnesium 2.2 mg/dl (1.8-2.4); Potassium 4.1 mmol/L (3.5-5.1)
[2019-01-26 07:02] LABS: Phosphorus 2.4 mg/dl (2.5-4.9)
--- NOTE | 2019-01-26 08:18 | XRay Report ---
XR chest 2V routine HISTORY: 68 years-old Male EXACT TIME ORDERED Evaluate for pneumothorax and l status post placement of a pacer/AICD COMPARISON: Chest radiograph 01/23/2019 TECHNIQUE: AP and lateral views of the chest FINDINGS: Prior median sternotomy with cardiac valvular prosthesis. Cardiomegaly. Unchanged right hemidiaphragm atic elevation. Stable positioning of left subclavian [id number] catheter. Status post placement o f a single lead right subclavian pacer/AICD. There is no postprocedural pneumothorax. No pleural effu marcio, overt pulmonary edema or focal airspace consolidation. Unchanged blunting of the costophrenic a ngles. Degenerative changes of the shoulders and spine. IMPRESSION: Status post placement of a right subclavian pacer/AICD. No postprocedural pneumothorax. The above report was generated using voice recognition software. It may contain grammatical, syntax o r spelling errors. Electronically signed by: Edgar Davis M.D. 01/26/2019 8:17 AM
[2019-01-26] MEDS: INSULIN ASPART 100 UNITS/ML 3 ML PEN SC SCH ×2 (08:34→12:12)
[2019-01-26] MEDS: ASCORBIC ACID 500 MG TAB PO SCH (08:35)
[2019-01-26] MEDS: MULTIVITAMIN TAB PO SCH (08:35)
[2019-01-26] MEDS: FERROUS GLUCONATE 324 MG TAB PO SCH ×2 (08:35→13:11)
[2019-01-26] MEDS: ASPIRIN 81 MG ECTAB PO SCH (08:35)
[2019-01-26] MEDS: levETIRAcetam 250 MG TAB PO SCH (08:36)
[2019-01-26] MEDS: PANTOprazole 40 MG TAB PO SCH (08:36)
[2019-01-26] MEDS: DICLOFENAC SOD 1% GEL 100 GM TUBE EXT SCH ×2 (08:36→13:10)
[2019-01-26] MEDS: POTASSIUM CHLORIDE 20 MEQ TABCR PO SCH (08:37)
[2019-01-26] MEDS: FOLIC ACID 400 MCG TAB PO SCH (08:38)
[2019-01-26] MEDS: cefTRIAXone SODIUM 2,000 MG in DEXTROSE 5% 50 ML IV SCH (08:39)
[2019-01-26] MEDS: CHOLESTYRAMINE LIGHT 4 GM PKT PO SCH (10:26)
--- NOTE | 2019-01-26 10:41 | Cardiology Progress Note ---
Date of Service January 26, 2019 Assessment & Plan (1) Syncope: Secondary to ventricular tachycardia. Patient underwent successful implantation of single-chamber right-sided ICD yesterday. Normal function. There was some concern regarding his ability to heal the small incision since he is on chemotherapy. We will need to monitor this closely. Add he should keep the Steri-Strips intact and keep the wound dry for at least 1 week until he is followed up in our clinic. I placed a dry dressing on the wound today which can be removed tomorrow. He should refrain from lifting the right arm above the shoulder behind the neck for 6 weeks. (2) H/O aortic valve replacement: Normally functioning bioprosthetic aortic valve on echocardiography in August 2018. (3) Nonischemic cardiomyopathy: Overall he has been well compensated over the past few months. He is on an aggressive regimen to include beta-blockade, spironolactone, diuretic and Entresto. He did not complain of breathing difficulty or other symptoms of decompensated heart failure leading up to this event. (4) Afib: Permanent. No overt symptoms. Overall rate control appears adequate. Not on anticoagulation due to history of gastrointestinal hemorrhage and anemia with active colonic malignancy (5) Ventricular tachycardia, sustained: No recurrent ventricular tachycardia. This could be related to his significant electrolyte abnormality at the time of admission. He is on beta- blockade and I do not think we can go higher on his dose currently given his relative hypotension. He did have what appeared to be an accelerated idioventricular rhythm early this morning. This was quite slowed and did not produce symptoms. Subjective This morning patient claims to be feeling well. He has minimal discomfort at the device implant site. His appetite is good. His knee discomfort experience yesterday also appears to be improved. Review of Systems Review of Systems: Per HPI Physical Exam Physical Exam: Evaluation the device implant site reveals some mild ecchymosis. No significant hematoma or drainage. Minimal tenderness to palpation Results & Data Vital Signs (Past 12 Hours) Vital Signs Temp Pulse Pulse Resp BP BP Pulse Ox 01/26/19 07:22 36.5 C 68 18 98/68 L 95 01/26/19 04:01 37.0 C 65 18 106/65 96 01/25/19 23:45 36.7 C 66 17 107/71 96 01/25/19 23:20 57 L Diagnostic Findings I reviewed the results of his chest x-ray. Good lead placement without evidence of pneumothorax. A device interrogation was performed which revealed good sensing on the ventricular lead. Normal device function. ECG Additional Comments: One episode of accelerated idioventricular rhythm at 7 a.m. this morning (1) Syncope Syncope type: unspecified Qualified Code(s): R55 - Syncope and collapse (2) Afib Atrial fibrillation type: chronic Qualified Code(s): I48.2 - Chronic atrial fibrillation
[2019-01-26 11:57] VITALS: BP 117/70; TEMP 98.2; O2SAT 99
--- NOTE | 2019-01-26 12:31 | Discharge Summary ---
Date of Service January 26, 2019 Admission HPI Per Admitting Provider This patient is a 68-year-old male with a history of colon cancer status post radiation and currently on chemotherapy, chronic diarrhea, aortic valve replacement, chronic systolic CHF, A. fib, DM 2, BPH, hyperlipidemia, GERD, CKD stage III, and the left MCA territory CVA, who presents to the ER after passing out in the bathroom today. He reports he was having his usual diarrhea and sitting on the toilet and he stood up and reached for the bathroom spray and the next thing he remembers is waking up on his knees facedown on the floor. His brother was in the bathroom when it happened and found him and called for an ambulance. He has never passed out before. He denies any chest pain or palpitations prior to when it happened. He does note that he has had 4-5 loose stools daily for the last 6 to 12 months and that this has not worsened lately. His blood pressures have been quite low in the last month or so, systolic blood pressure never above 100. In fact, his cardiology PA recently lowered a lot of his medications that were affecting his blood pressure because of this. In the ER, he was found to have blood pressure in the 70s systolic and he was given boluses of IV fluids with improvement to the 80s. He was mentating well. He was also hypokalemic and hypomagnesemic and these were being replaced at the time of admission. Otherwise, patient denies fevers or headaches, denies chest pain shortness of breath, denies abdominal pain. He has a small skin tear in the left dorsal hand which occurred during the fall, but denies any other joint pains or injuries anywhere else. Of note, he is training to be a [employer] and declines any blood products if necessary. Principal Diagnosis Syncope, sustained ventricular tachycardia, hypotension, hypokalemia Discharge Exam Constitutional WD/WN, vitals as above no acute distress and not diaphoretic Eyes PERRL, conjunctivae normal, anicteric sclerae ENMT external ear and nose normal, oropharynx normal Neck trachea midline, no thyromegaly Respiratory normal respiratory effort, lungs clear to auscultation Cardiovascular Rate/Rhythm: regular rate and + irregularly irregular Heart Sounds: + murmur (2/6 DANELLE at RUSB) Extremities: no edema Gastrointestinal (Abdomen) normal bowel sounds, soft, nontender, no hepatosplenomegaly Musculoskeletal Extremities: + extremities abnormal to inspection, no cyanosis and no clubbing Knee: + knee abnormal to inspection, + effusion (bilat L>>R but improved from previous) and + surgical incision (left medial knee); no skin erythema and no joint line tenderness No tenderness to palpation over left knee or right knee Skin + wound (L dorsal hand skin tear, covered; R hand dorsal with old skin tears) Neurologic moves all extremities and awake; no focal motor deficits Psychiatric A+Ox3, euthymic affect Discharge Data Allergies Allergy/AdvReac Type Severity Reaction Status Date / Time No Known Allergies Allergy NONE Verified 01/23/19 14:27 Consultations 01/23/19 14:54 ED Decision to Admit Stat 01/23/19 16:55 Consult Oncology Routine 01/24/19 09:34 Consult Cardiology Routine Procedures Performed Operation Date: 01/25/19 15:00 Actual Procedures p ICD Insertion Single or Dual - Jose Leone MD Ordered Studies 01/23/19 13:05 CT head/brain wo con Stat 01/25/19 12:00 EP Lab Images for PACS ONCE Chest x-ray x2 Bilateral knee x-rays Hospital Course (1) Syncope: This patient is a 68-year-old male with a history of colon cancer status post radiation and currently on chemotherapy, chronic diarrhea, aortic valve replacement, chronic systolic CHF, A. fib, DM 2, BPH, hyperlipidemia, GERD, CKD stage III, and the left MCA territory CVA, who presents to the ER after passing out in the bathroom today. He reports he was having his usual diarrhea and sitting on the toilet and he stood up and reached for the bathroom spray and the next thing he remembers is waking up on his knees facedown on the floor. His brother was in the bathroom when it happened and found him and called for an ambulance. He has never passed out before. He denies any chest pain or palpitations prior to when it happened. He does note that he has had 4-5 loose stools daily for the last 6 to 12 months and that this has not worsened lately. His blood pressures have been quite low in the last month or so, systolic blood pressure never above 100. In fact, his cardiology PA recently lowered a lot of his medications that were affecting his blood pressure because of this. In the ER, he was found to have blood pressure in the 70s systolic and he was given boluses of IV fluids with improvement to the 80s. He was mentating well. He was also hypokalemic and hypomagnesemic and these were being replaced at the time of admission. Otherwise, patient denies fevers or headaches, denies chest pain shortness of breath, denies abdominal pain. He has a small skin tear in the left dorsal hand which occurred during the fall, but denies any other joint pains or injuries anywhere else. Of note, he is training to be a [employer] and declines any blood products if necessary. Syncope-initially thought to be related to hypotension and dehydration from chronic diarrhea, chemotherapy with poor p.o. intake over the last week, and continued chronic diarrhea. However, he then had an episode of sustained ventricular tachycardia lasting 1- 1/2 minutes with resultant syncope witnessed in the hospital on 01/24-it is likely that the syncope he had at home prior to admission was also due to sustained ventricular tachycardia No further VT and now s/p ICD placement on 01/25, doing well -Replaced potassium and magnesium, phosphorus femoral normal on the day of discharge -Was given gentle IV fluids -Cardiology consultation obtained-appreciate [id number] after discharge -Check BMP on Thursday after discharge -Orthostatic vital signs were normal after hydration -His home Lasix and Entresto will remain on hold at the time of discharge, while his spironolactone and carvedilol will be restarted -As his potassium is now normalized, will be restarted on Aldactone but not on Lasix, will hold off on restarting his oral potassium supplement at this time -Follow blood pressures after discharge (2) Ventricular tachycardia, sustained: With documented 1 minute 20 seconds of sustained ventricular tachycardia with episode of syncope, maintained his pulse throughout on 01/24 Hypokalemia likely contributed, but also with low EF -Cardiology consulted-now s/p ICD placement this admission -Follow-up with cardiology after discharge (3) Hypotension: Secondary to issues as above -hydrated with IV fluids and improved but remains low in 90s-100 systolic which is his normal -We will restart home carvedilol and Aldactone upon discharge as above, well will continue to hold Entresto, Lasix-cardiology may add these latter 2 medications back on later -Okay to restart tamsulosin (4) Hypokalemia: Potassium 2.9 on admission likely secondary to GI losses and diuretic use, continued to be severely low secondary to diarrhea, and likely contributed to his sustained ventricular tachycardia K+ finally normal -We will hold off on restarting home oral potassium supplement as his diarrhea is now improving with cholestyramine and he will no longer be on Lasix -Moreover, he will also be restarted on his potassium sparing diuretic, Aldactone -Follow BMP on Thursday as an outpatient (5) Hypomagnesemia: Replaced and resolved (6) Kidney disease: CKD stage II-III Currently creatinine is normal -Avoid nephrotoxins -Renally dose medications -Follow BMP (7) Atrial fibrillation: Permanent Not on anticoagulation due to previous rectal bleeding colon cancer Previously holding carvedilol due to hypotension as above, and now will restart on discharge (8) Colon cancer: Diagnosed earlier in 2019. Status post radiation therapy and currently on chemotherapy-was due for next treatment on 01/24 Was previously told he would not be a good candidate for surgery due to comorbidities Cardiology here does not think his cardiac issues are prohibitive of him having colorectal surgery-> discussed with pt and his family and they will continue to follow on this issue after discharge to see if he could possibly pursue surgical resection -Consult oncology appreciated-chemotherapy on hold for now -Supportive care -f/u Oncology after dc (9) Nonischemic cardiomyopathy: Most recent EF is 35% Clearly was dehydrated upon admission-now euvolemic after IV fluid resuscitation -Restarting spironolactone and carvedilol as above, while holding Entresto and Lasix upon discharge -Follow-up with cardiology after discharge (10) HLD (hyperlipidemia): Continue statin (11) HTN (hypertension): Meds as above (12) DM type 2 (diabetes mellitus, type 2): -Give home Levemir and will give sliding scale insulin, Accu-Cheks, well- controlled Diabetic diet (13) Seizure: Continue home Keppra , No acute issues (14) H/O aortic valve replacement: Replaced in 2010 Bioprosthetic Stable and functioning well most recent echocardiogram (15) GERD (gastroesophageal reflux disease): Continue PPI (16) BPH (benign prostatic hyperplasia): No current issues with retention Holding tamsulosin as above for hypotension but okay to restart on discharge (17) Chronic systolic (congestive) heart failure: As above (18) Diarrhea: Chronic for the last year as per family Now improving with cholestyramine powder -Supportive care, replace electrolytes--> diarrhea definitely contributes to his electrolyte abnormalities which likely contributed to his VT -has tried loperamide and Lomotil to no avail. ALso tried Metamucil -We will prescribe cholestyramine packet bid upon discharge (19) UTI (urinary tract infection): Abnormal UA on admission Urine culture with E. coli, pansensitive -Received Rocephin daily and convert to p.o. antibiotics upon discharge with Keflex 500 mg p.o. twice daily x10 more days (20) Knee pain, bilateral: Bilateral L>R acute knee pain since falling onto his knees during syncopal episode prior to admission. 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 He then received IV Toradol x1 dose which significantly helped his pain and reduced his swelling -continue ice packs -Contact ibuprofen sparingly upon discharge, cautioned to not take too often due to issues with bleeding and GI upset -consult Orthopedic Surgery to see about aspiration, however will cancel the consultation as he is much improved on the day of discharge (21) ICD (implantable cardioverter-defibrillator) in place: Noted, as above (22) DVT prophylaxis: GADIEL cortes, SCDs Held chemical anticoagulation at this time due to recent epistaxis with head trauma and history of GI bleeding Disposition-stable for discharge to home with home health PT/OT evaluations performed Total Time Total Time Spent Total Time Spent (In Minutes): Greater than 30 minutes Total Time Includes: Examination of the Patient, Discharge Planning, Medication Reconciliation and Communication With Other Providers (Cardiology) Discharge Plan Discharge Items Patient Disposition: Home - Home Health Services Reason For Visit: SYNCOPE, HYPOTENSION Discharge Diagnosis: Syncope, sustained ventricular tachycardia, hypotension, hypokalemia, urinary tract infection Condition: Good Discharge Goals: Decrease discomfort, Diagnostic testing, Improve disease control, Learn about illness, Prevent disease and Therapeutic intervention Activity: As commented below Bathing: Keep incision dry Exercise/Sports: As tolerated Driving/Machine Use Comment: No driving Non-emergency contact: Primary Care Provider, [facility] and Oncologist Call non-emergency contact if: you have any medication questions, your symptoms worsen, your pain is not controlled, your pain is worsening, your pain is unusual for you, your pain is concerning for you, you have a fever and your temp erature is above 100.5 Follow-up/Referrals: Erika Negro [Primary Care Provider] - 02/01/19 9:10 am (Please, follow up at Dr. Negro's office with his associate, Dr. Rosales, on ThursdayFebruary 01 at 9:10 am. *If you need to change this appointment, call their office at [phone].) Victoria Gutierres PA-C [Physician Golf Cart Assembler] - 02/11/19 8:30 am (Please, follow up at [facility] Office with Delmi Gutierres PA-C on ThursdayFebruary 11 at 8:30 am. *If you need to change this appointment, call the office at [phone].) Diet: Carb Consistent or DM2 and Heart Healthy Other Ambulatory Orders: Basic Metabolic Panel (Routine) Timeframe: 5 Days Location: Determined by Patient Ordered By: Marifer Vicente Provider Instructions: You were admitted after passing out which was likely secondary to your ventricular tachycardia arrhythmia for which you had a defibrillator placed. Your potassium levels were also very low and this was replaced. Your blood pressures were also quite low which also may have contributed to your passing out. Your Entresto and your Lasix were stopped. You can restart your carvedilol and your Spironolactone at your usual doses. Please have blood work checked on Thursday to make sure your potassium levels are staying within normal limits. You were also treated for urinary tract infection and should finish out another 7 days of antibiotics orally. This prescription has been sent to your pharmacy. As for your diarrhea, it seemed to improve with taking cholestyramine powder. A prescription for this will also be sent to your pharmacy and can be taken twice a day, mixed with liquid. As for your knee pain and swelling, this did improve with anti-inflammatory medications. You can continue ibuprofen occasionally as needed for pain and swelling. Please continue to use the ice packs. If this worsens again or does not continue to improve, please seek care with your primary care doctor or an orthopedic surgeon. Please keep your regularly scheduled appointment with oncology. Please follow-up with cardiology and your primary care physician as scheduled for you. For your surgical wound site: You should keep the Steri-Strips intact and keep the wound dry for at least 1 week until he is followed up in our clinic. I placed a dry dressing on the wound today which can be removed tomorrow. He should refrain from lifting the right arm above the shoulder behind the neck for 6 weeks. Prescriptions: New acetaminophen [Mapap (acetaminophen)] 325 mg Tablet 650 mg PO Q4H PRN (Reason: pain) Qty: 30 RF: 0 Cholestyramine Light 4 gram Powder In Packet 4 g PO BID@1000,2200 Qty: 60 RF: 0 diclofenac sodium [Voltaren] 1 % Gel 1 gm EXT QID PRN (Reason: Knee pain) Qty: 100 RF: 0 cephalexin [Keflex] 500 mg capsule 500 mg PO BID 10 Days Qty: 20 RF: 0 ibuprofen 200 mg tablet 600 mg PO Q8H PRN (Reason: pain) Qty: 20 RF: 0 Continued folic acid 400 mcg Tablet 400 mcg PO QAM RF: 0 aspirin [Aspirin Low Dose] 81 mg Tablet,Delayed Release (Dr/Ec) 81 mg PO QAM RF: 0 spironolactone 25 mg Tablet 25 mg PO QAM RF: 0 Complete Multi 50+ 500-300-250 mcg Tablet 1 tab PO QAM RF: 0 carvedilol 6.25 mg tablet 12.5 mg PO BID RF: 0 amoxicillin 500 mg Tablet 500 mg PO UD PRN (Reason: BEFORE DENTAL PROCEDURE) RF: 0 Levemir U-100 Insulin 100 unit/mL Solution 10 unit SUBCUT HS RF: 0 ferrous gluconate 324 mg (37.5 mg iron) Tablet 324 mg PO TID RF: 0 silver sulfadiazine [Silvadene] 1 % cream 1 appln TOP UD PRN (Reason: DIRECTED) RF: 0 levetiracetam [Keppra] 500 mg tablet 250 mg PO BID RF: 0 hydrocortisone [Proctosol HC] 2.5 % Cream With Perineal Applicator 1 applic DE UD PRN (Reason: DIRECTED) RF: 0 ascorbic acid (vitamin C) [Vitamin C] 500 mg Tablet 500 mg PO QAM RF: 0 tamsulosin [Flomax] 0.4 mg capsule 0.4 mg PO PM RF: 0 simvastatin 20 mg Tablet 20 mg PO HS RF: 0 omeprazole 20 mg Tablet,Delayed Release (Dr/Ec) 20 mg PO QAM RF: 0 omega 4-owc-cle-fish oil [Fish Oil] 1,000 mg (120 mg-180 mg) Capsule 1 cap PO QAM RF: 0 Discontinued Entresto 24-26 mg Tablet 1 tab PO BID RF: 0 potassium chloride [Klor-Con M20] 20 mEq tablet,ER particles/crystals 20 meq PO QAM RF: 0 furosemide [Lasix] 80 mg tablet 40 mg PO DAILY RF: 0 Stand-Alone Forms: [facility] Discharge Orders: Discharge Order (Routine); Ordered 01/26/19 Ordered By: Marifer Lamar Admission Data Admit Date/Time: 01/23/19 15:34 Attending Provider: Marifer Lamar Admit Provider: Marifer Lamar Primary Care Provider: Erika Negro Other Providers: Marifer Lamar ; Mike Jacobson V ; Jose Leone Service: Telemetry Other Pending Studies at Discharge: No
[2019-01-26 12:43] VITALS: PULSE 71
== END 2019-01-26 14:20 | disposition home health service (06) | DRG 227 ==
LOC: ED 12:45 → 2E 15:34
PROC: EPB.ICD (2019-01-25 15:00)

== ENCOUNTER 2019-04-01 15:43 | Inpatient (IN) ==
[2019-04-01] MEDS ORDERED: MIDAZOLAM HCL 5 MG/ML VIAL ONE (15:54)
--- NOTE | 2019-04-01 16:08 | Emergency Department Note ---
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 The patient's family states that the patient was normal this morning, and they heard a yell and a crash while he was in the bathroom. The family notes that they called 911 immediately after the fall. Per EMS, the patient was found unresponsive, tachycardic, and with epistaxis on the floor of his bathroom. EMS reports that they were called for cardiac arrest, stating that the patient became more responsive on the way to the hospital. Per EMS, the patient is agitated and he has a left lower extremity deformity. EMS states that the patient received 2 mg IM Ativan CYTOMETRY TECHNOLOGIST. Per EMS, the patient was put in 4-point restraints CYTOMETRY TECHNOLOGIST. The patient's family states that he was not feeling well this morning. His brother notes that the patient has a pacemaker/defibrillator and a history of rectal colon cancer. HPI and ROS limited secondary to lack of cooperation. Home Medications Home Medications Medication Instructions Recorded Confirmed Type aspirin [Aspirin Low Dose] 81 mg PO QAM 08/11/18 04/01/19 History folic acid 400 mcg PO QAM 08/11/18 04/01/19 History spironolactone 25 mg PO QAM 08/11/18 04/01/19 History ascorbic acid (vitamin C) [Vitamin 500 mg PO QAM 09/07/18 04/01/19 History C] omega 1-fks-bhj-fish oil [Fish Oil] 1 cap PO QAM 09/07/18 04/01/19 History omeprazole 20 mg PO QAM 09/07/18 04/01/19 History tamsulosin [Flomax] 0.4 mg PO QPM 09/07/18 04/01/19 History Levemir U-100 Insulin 10 unit SUBCUT HS 11/16/18 04/01/19 History cholestyramine-aspartame 4 g PO BID@1000,2200 #60 ea 01/26/19 04/01/19 Rx [Cholestyramine Light] amoxicillin 500 mg tablet 2,000 mg PO ONCE PRN tab 02/04/19 04/01/19 History carvedilol 12.5 mg tablet 12.5 mg PO BID #60 tab 02/04/19 04/01/19 History sacubitril 24 mg-valsartan 26 mg 1 tab PO BID 02/04/19 04/01/19 History tablet atorvastatin 20 mg tablet 20 mg PO HS 03/03/19 04/01/19 History diclofenac sodium [Voltaren] 1 gm TOPICAL QID PRN 04/01/19 04/01/19 History ferrous sulfate 325 mg PO TID 04/01/19 04/01/19 History furosemide [Lasix] 40 mg PO QAM 04/01/19 04/01/19 History ibuprofen 600 mg PO Q8H PRN 04/01/19 04/01/19 History multivitamin 1 tab PO DAILY 04/01/19 04/01/19 History oxycodone-acetaminophen 1 tab PO Q6H PRN 04/01/19 04/01/19 History potassium chloride [Klor-Con M20] 20 meq PO DAILY 04/01/19 04/01/19 History prednisone 20 mg PO QAM 04/01/19 04/01/19 History Allergies Allergy/AdvReac Type Severity Reaction Status Date / Time No Known Allergies Allergy Verified 04/01/19 17:03 Past Med/Surg History Medical History Sleep apnea (Chronic) Aortic stenosis Nonischemic cardiomyopathy CVA (cerebral vascular accident) 08/11/18 HLD (hyperlipidemia) HTN (hypertension) DM type 2 (diabetes mellitus, type 2) Seizure "SMALL SEIZURE AT TIME OF CVA 07/2018" Kidney disease (Chronic) AAA (abdominal aortic aneurysm) NEW FINDING Anemia Atrial fibrillation BPH (benign prostatic hyperplasia) Cancer COLON CANCER (NEW DX) RADIATION JUST COMPLETED Chronic systolic (congestive) heart failure Colon cancer Congestive heart failure GERD (gastroesophageal reflux disease) Osteoarthritis Sleep apnea Surgical History H/O aortic valve replacement (Chronic) 2011 AT [facility] Port-A-Cath in place (Chronic) H/O knee surgery RT/LEFT History of cardiac cath 2011 History of colonoscopy History of tooth extraction Family History Brother Family history of diabetes mellitus Mother Colon cancer Father Coronary heart disease Hypertension Sister Hypertension Grandmother Diabetes Social History Preferred Language: Swiss Communication Ability: Effective Labor Custodian Required: No Beliefs That Will Affect Care: Anglican Anglican Beliefs: Jehovah Witness marital status: Current Living Situation: Family Current Living Situation Comment: brother, sister in law, sister Other Information That Helps Us Care for You: No Feels Safe at Home: Yes Safety Concerns: Feels Safe At This Time Smoking Status: Former smoker Tobacco Type: cigarettes ; Age Quit Using Tobacco: 48 ; Cigarettes Per Day: 5 ; Second Hand Exposure: No ; Hx Alcohol Use: No Hx Substance Use: No Review of Systems See HPI for pertinent positives & negatives. and A total of 10 systems reviewed and were otherwise negative Physical Exam Vital Signs Vital Signs - 24 hr 04/01/19 16:40 04/01/19 16:58 04/01/19 17:01 Pulse Rate 92 H 88 96 H Pulse Rate [Apical] Pulse Rate from SpO2 Sensor 89 76 91 H Pulse Rhythm [Apical] Respiratory Rate 18 18 18 Respiratory Effort / Characteristics Respiratory Depth Respiratory Pattern Blood Pressure 96/83 L 111/76 Blood Pressure [Right Arm] Blood Pressure Mean 87 87 Blood Pressure Mean [Right Arm] Blood Pressure Position [Right Arm] Pulse Oximetry 100 100 100 Oxygen Delivery Method Oxygen Flow Rate 4 4 4 04/01/19 17:16 04/01/19 17:32 04/01/19 17:46 Pulse Rate 83 78 69 Pulse Rate [Apical] Pulse Rate from SpO2 Sensor 78 69 54 L Pulse Rhythm [Apical] Respiratory Rate 18 18 16 Respiratory Effort / Characteristics Respiratory Depth Respiratory Pattern Blood Pressure 114/71 106/64 78/54 L Blood Pressure [Right Arm] Blood Pressure Mean 85 78 62 Blood Pressure Mean [Right Arm] Blood Pressure Position [Right Arm] Pulse Oximetry 100 100 99 Oxygen Delivery Method Oxygen Flow Rate 4 4 4 04/01/19 17:47 04/01/19 17:50 04/01/19 17:55 Pulse Rate 71 65 62 Pulse Rate [Apical] Pulse Rate from SpO2 Sensor 60 62 61 Pulse Rhythm [Apical] Respiratory Rate 16 16 16 Respiratory Effort / Characteristics Respiratory Depth Respiratory Pattern Blood Pressure 73/55 L 78/56 L 88/60 L Blood Pressure [Right Arm] Blood Pressure Mean 61 63 69 Blood Pressure Mean [Right Arm] Blood Pressure Position [Right Arm] Pulse Oximetry 98 99 95 Oxygen Delivery Method Oxygen Flow Rate 4 4 4 04/01/19 18:00 04/01/19 18:05 04/01/19 18:10 Pulse Rate 60 57 L 57 L Pulse Rate [Apical] Pulse Rate from SpO2 Sensor 58 L 47 L 41 L Pulse Rhythm [Apical] Respiratory Rate 14 14 14 Respiratory Effort / Characteristics Respiratory Depth Respiratory Pattern Blood Pressure 92/56 L 85/57 L 90/54 L Blood Pressure [Right Arm] Blood Pressure Mean 68 66 66 Blood Pressure Mean [Right Arm] Blood Pressure Position [Right Arm] Pulse Oximetry 96 97 98 Oxygen Delivery Method Oxygen Flow Rate 4 4 4 04/01/19 18:15 04/01/19 18:21 04/01/19 18:26 Pulse Rate 58 L 59 L 54 L Pulse Rate [Apical] Pulse Rate from SpO2 Sensor 51 L 52 L 49 L Pulse Rhythm [Apical] Respiratory Rate 14 14 14 Respiratory Effort / Characteristics Respiratory Depth Respiratory Pattern Blood Pressure 86/61 L 97/51 L 88/57 L Blood Pressure [Right Arm] Blood Pressure Mean 69 66 67 Blood Pressure Mean [Right Arm] Blood Pressure Position [Right Arm] Pulse Oximetry 98 98 97 Oxygen Delivery Method Oxygen Flow Rate 4 4 4 04/01/19 18:30 04/01/19 18:32 04/01/19 18:35 Pulse Rate 54 L 65 56 L Pulse Rate [Apical] Pulse Rate from SpO2 Sensor 51 L 56 L 63 Pulse Rhythm [Apical] Respiratory Rate 14 18 18 Respiratory Effort / Characteristics Respiratory Depth Respiratory Pattern Blood Pressure 78/60 L 105/67 104/64 Blood Pressure [Right Arm] Blood Pressure Mean 66 79 77 Blood Pressure Mean [Right Arm] Blood Pressure Position [Right Arm] Pulse Oximetry 99 100 100 Oxygen Delivery Method Oxygen Flow Rate 4 4 4 04/01/19 18:41 04/01/19 18:46 04/01/19 18:50 Pulse Rate 58 L 58 L 51 L Pulse Rate [Apical] Pulse Rate from SpO2 Sensor 49 L 44 L 50 L Pulse Rhythm [Apical] Respiratory Rate 18 18 16 Respiratory Effort / Characteristics Respiratory Depth Respiratory Pattern Blood Pressure 89/58 L 81/48 L 85/66 L Blood Pressure [Right Arm] Blood Pressure Mean 68 59 72 Blood Pressure Mean [Right Arm] Blood Pressure Position [Right Arm] Pulse Oximetry 100 100 100 Oxygen Delivery Method Oxygen Flow Rate 4 04/01/19 18:56 04/01/19 19:00 04/01/19 19:16 Pulse Rate 51 L 49 L 62 Pulse Rate [Apical] 56 L Pulse Rate from SpO2 Sensor 49 L 45 L 55 L Pulse Rhythm [Apical] Irregular Respiratory Rate 16 10 L 16 Respiratory Effort / Characteristics Non-Labored Respiratory Depth Normal Respiratory Pattern Regular Blood Pressure 86/59 L 95/59 L 90/62 L Blood Pressure [Right Arm] 95/59 L Blood Pressure Mean 68 71 71 Blood Pressure Mean [Right Arm] 71 Blood Pressure Position [Right Arm] Lying Pulse Oximetry 100 100 100 Oxygen Delivery Method Oxymask Oxygen Flow Rate 4 04/01/19 19:34 04/01/19 19:45 04/01/19 20:01 Pulse Rate 58 L 57 L 67 Pulse Rate [Apical] Pulse Rate from SpO2 Sensor 52 L 58 L 64 Pulse Rhythm [Apical] Respiratory Rate 16 12 16 Respiratory Effort / Characteristics Respiratory Depth Respiratory Pattern Blood Pressure 116/76 121/69 113/78 Blood Pressure [Right Arm] Blood Pressure Mean 89 86 89 Blood Pressure Mean [Right Arm] Blood Pressure Position [Right Arm] Pulse Oximetry 100 100 100 Oxygen Delivery Method Oxygen Flow Rate 04/01/19 20:15 04/01/19 20:31 Pulse Rate 63 53 L Pulse Rate [Apical] Pulse Rate from SpO2 Sensor 61 60 Pulse Rhythm [Apical] Respiratory Rate 14 13 Respiratory Effort / Characteristics Respiratory Depth Respiratory Pattern Blood Pressure 117/84 119/77 Blood Pressure [Right Arm] Blood Pressure Mean 95 91 Blood Pressure Mean [Right Arm] Blood Pressure Position [Right Arm] Pulse Oximetry 100 100 Oxygen Delivery Method Oxygen Flow Rate GENERAL: The patient is awake and alert. He is looking around the room but not following commands. He appears anxious. EYES: The conjunctivae are clear. The pupils are round and reactive. EARS, NOSE, MOUTH AND THROAT: There is an abrasion over the bridge of the nose. Clotted blood is noted in both nares. No active bleeding is noted. RESPIRATORY: Normal respiratory effort is noted. There is no evidence of wh eezing rhonchi or rales to auscultation. CARDIOVASCULAR: Ectopy was noted to auscultation. There is no definite murmur. GASTROINTESTINAL: The abdomen is soft. Bowel sounds are present in all quadrant s. Abdomen is nontender. BACK: No midline tenderness was noted. MUSCULOSKELETAL/EXTREMITIES: There was swelling noted to the left knee. Patient appears to have pain with range of motion of the left lower extremity. There was multiple skin tears and abrasions over the right upper extremity. SKIN: Trace pedal edema was noted bilaterally. Skin was warm and dry. Pulses were symmetric in both feet. NEUROLOGIC: The patient is awake and looking around. He does not follow commands. It is difficult to assess orientation at this time. Patient appears to move all extremities well. Course 1543: The patient was evaluated in room A01. A complete history and physical exam was performed. 1645: I reassessed the patient, and he appeared improved. 1735: I reevaluated the patient, and he was feeling better. 1743: I spoke with Dr. Miller, [facility] hospitalist, about the patients case. She will further evaluate the patient. Consultations Consultation #1: I spoke with Dr. Miller, [facility] hospitalist, about the patients case. She will further evaluate the patient. Time: 17:43 Administered Medications Ascorbic Acid (Vitamin C) 500 mg PO QAM [facility] Stop: 05/02/19 08:59 Last Admin: 04/02/19 08:31 Dose: 500 mg Documented by: [id number] Aspirin (Ecotrin Ectab) 81 mg PO QAM [facility] Stop: 05/02/19 08:59 Last Admin: 04/02/19 08:31 Dose: 81 mg Documented by: [id number] Atorvastatin Calcium (Lipitor) 20 mg PO HS [facility]FFER Stop: 05/01/19 21:59 Last Admin: 04/01/19 22:45 Dose: 20 mg Documented by: [id number] Carvedilol (Coreg) 12.5 mg PO BID [facility] Stop: 05/02/19 08:59 Last Admin: 04/02/19 08:29 Dose: 12.5 mg Documented by: [id number] Cholestyramine Resin (Questran) 4 gm PO BID@1000,2200 [facility] Stop: 05/02/19 09:59 Last Admin: 04/02/19 08:29 Dose: 4 gm Documented by: [id number] Ferrous Sulfate (Feosol) 325 mg PO TIDM [facility] Stop: 05/02/19 07:59 Last Admin: 04/02/19 12:42 Dose: 325 mg Documented by: [id number] Admin: 04/02/19 08:30 Dose: 325 mg Documented by: [id number] Fish Oil ([place]-3 (Purified Fish Oil)) 1 gm PO QAM [facility] Stop: 05/02/19 08:59 Last Admin: 04/02/19 08:29 Dose: 1 gm Documented by: [id number] Folic Acid (Folvite) 400 mcg PO QAM [facility] Stop: 05/02/19 08:59 Last Admin: 04/02/19 08:29 Dose: 400 mcg Documented by: [id number] Furosemide (Lasix) 40 mg PO QAM [facility] Stop: 05/02/19 08:59 Last Admin: 04/02/19 08:29 Dose: 40 mg Documented by: [id number] Ceftriaxone Sodium 2,000 mg/ (Dextrose) 70 mls @ 100 mls/hr IV Q24H [facility]; Protocol Stop: 04/11/19 21:59 Last Infusion: 04/01/19 23:27 Dose: 0 mls/hr Documented by: [id number] Admin: 04/01/19 22:45 Dose: 100 mls/hr Documented by: [id number] Insulin Aspart (Novolog Flexpen) 0 units SC Q4 [facility]; Protocol Stop: 05/02/19 03:59 Last Admin: 04/02/19 12:42 Dose: 4 units Documented by: [id number] Cosigned by: [id number] Admin: 04/02/19 08:39 Dose: Not Given Documented by: [id number] Cosigned by: [id number] Admin: 04/02/19 03:51 Dose: Not Given Documented by: [id number] Cosigned by: [id number] Multivitamins (Multivitamin Tab) 1 tab PO DAILY [facility] Stop: 05/02/19 08:59 Last Admin: 04/02/19 08:30 Dose: 1 tab Documented by: [id number] Pantoprazole Sodium (Protonix) 40 mg PO QAM [facility] Stop: 05/02/19 08:59 Last Admin: 04/02/19 08:30 Dose: 40 mg Documented by: [id number] Potassium Chloride (Klor-Con M20) 20 meq PO DAILY [facility] Stop: 05/02/19 08:59 Last Admin: 04/02/19 08:30 Dose: 20 meq Documented by: [id number] Prednisone (Prednisone) 20 mg PO QAM [facility] Stop: 05/02/19 08:59 Last Admin: 04/02/19 08:30 Dose: 20 mg Documented by: [id number] Sacubitril/Valsartan (Entresto 24/26mg) 1 tab PO BID [facility] Stop: 05/02/19 08:59 Last Admin: 04/02/19 08:30 Dose: 1 tab Documented by: [id number] Spironolactone (Aldactone) 25 mg PO QAM [facility] Stop: 05/02/19 08:59 Last Admin: 04/02/19 08:31 Dose: 25 mg Documented by: [id number] Tamsulosin HCl (Flomax) 0.4 mg PO QPM [facility] Stop: 05/01/19 21:53 Last Admin: 04/01/19 22:45 Dose: 0.4 mg Documented by: [id number] Discontinued Medications Magnesium Sulfate/Dextrose (Magnesium Sulfate / D5w) 1 gm in 100 mls @ 100 mls/hr IV Q1H [facility] Stop: 04/01/19 19:29 Last Infusion: 04/01/19 19:31 Dose: 0 mls/hr Documented by: [id number] Admin: 04/01/19 18:24 Dose: 100 mls/hr Documented by: [id number] Infusion: 04/01/19 18:24 Dose: 0 mls/hr Documented by: [id number] Admin: 04/01/19 17:25 Dose: 100 mls/hr Documented by: [id number] Piperacillin Sod/Tazobactam Sod (Zosyn) 4.5 gm in 120 mls @ 240 mls/hr IV NOW ONE Stop: 04/01/19 17:49 Last Infusion: 04/01/19 17:56 Dose: 0 mls/hr Documented by: [id number] Admin: 04/01/19 17:25 Dose: 240 mls/hr Documented by: [id number] Sodium Chloride (Nss 1000ml) 1,000 mls @ 999 mls/hr IV .Q1H1M ONE Stop: 04/01/19 18:45 Last Infusion: 04/01/19 18:25 Dose: 0 mls/hr Documented by: [id number] Admin: 04/01/19 17:49 Dose: 999 mls/hr Documented by: [id number] Insulin Aspart (Novolog Flexpen) 0 units SC ONE ONE; Protocol Stop: 04/01/19 22:31 Last Admin: 04/01/19 22:47 Dose: 2 units Documented by: [id number] Cosigned by: [id number] Insulin Detemir (Levemir Flextouch) 10 units SQ HS [facility]FFER Stop: 05/01/19 23:29 Last Admin: 04/02/19 00:02 Dose: 10 units Documented by: [id number] Cosigned by: [id number] Ioversol (Optiray 320 100ml) 90 ml IV ONCE PRN PRN Reason: Interaction Checking Stop: 04/05/19 16:23 Last Admin: 04/01/19 16:25 Dose: 90 ml Documented by: [id number] Midazolam HCl (Versed) Confirm Administered Dose 10 mg .ROUTE .STK-MED ONE Stop: 04/01/19 15:55 Last Increment: 04/01/19 15:55 Dose: 2 mg Documented by: [id number] Potassium Chloride (Klor-Con M20) 40 meq PO NOW STA Stop: 04/01/19 21:55 Last Admin: 04/01/19 22:45 Dose: 40 meq Documented by: [id number] Medical Decision Making Differential Diagnosis Differential diagnoses includes but is not limited to toxic, metabolic, infectious, traumatic, cardiac, neurologic, hematologic, psychiatric and inflammatory etiologies. Medical Records Attestation: I reviewed the patient's medical records. Home Medications Current Medication List: was personally reviewed by me Laboratory Data Attestation: I reviewed the patient's lab results. Result diagrams: 04/02/19 04:12 04/02/19 04:12 Lab Results 04/01/19 04/01/19 04/01/19 Range/Units 15:55 15:55 15:55 WBC 12.98 H (4.8-10.8) K/uL RBC 3.77 L (4.7-6.1) M/uL Hgb 12.2 L (14.0-18.0) g/dL POC Hgb (14.0-18.0) g/dl Hct 36.2 L (42-52) % POC Hct (42-52) % MCV 96.0 (80-100) fL MCH 32.4 (25-34) pg MCHC 33.7 (32-36) g/dL RDW Std Deviation 63.2 H (36.4-46.3) fL RDW Coeff of Amandeep 18.0 H (11.5-14.5) % Plt Count 192 (130-400) K/uL MPV 10.3 (7.4-10.4) fL Immature Gran % (Auto) 0.3 % Neut % (Auto) 90.1 % Lymph % (Auto) 8.6 % [place] % (Auto) 1.0 % Eos % (Auto) 0.0 % Baso % (Auto) 0.0 % Immature Gran # (Auto) 0.04 H (0.00-0.02) K/uL Neut # (Auto) 11.70 H (1.4-6.5) K/uL Lymph # (Auto) 1.11 L (1.2-3.4) K/uL [place] # (Auto) 0.13 (0.11-0.59) K/uL Eos # (Auto) 0.00 (0-0.5) K/uL Baso # (Auto) 0.00 (0-0.2) K/uL ESR 37 H (0-14) mm/hr PT 10.9 (9.0-12.0) Seconds INR 1.1 (0.9-1.1) APTT 22.0 (21.0-31.0) Seconds PTT Ratio 0.8 VBG pH (7.36-7.41) VBG pCO2 (38-50) mmHg VBG pO2 mmHg VBG HCO3 mmol/L VBG O2 Saturation % VBG Base Excess mEq/L Barometric Pressure mm/Hg POC Sodium (135-144) mEq/L Sodium (136-145) mmol/L POC Potassium (3.3-5.0) mEq/L Potassium (3.5-5.1) mmol/L POC Chloride (101-112) mEq/L Chloride (98-107) mmol/L Carbon Dioxide (21-32) mmol/L POC Total CO2 (24-31) mEq/l Anion Gap (3-11) POC Anion Gap (16-25) mmol/L POC BUN (7-18) mg/dl BUN (7-18) mg/dl Creatinine (0.6-1.4) mg/dl POC Creatinine (0.6-1.3) mg/dl Est Cr Clr Drug Dosing ml/min Est GFR ( Amer) Est GFR (Non-Af Amer) BUN/Creatinine Ratio (10-20) Glucose (70-99) mg/dl POC Glucose (other) (70-99) mg/dl Lactate (0.4-2.0) mmol/L Calcium (8.5-10.1) mg/dl POC Ioniz Calcium Maisha (1.12-1.32) mmol/l Magnesium (1.8-2.4) mg/dl Total Bilirubin (0.2-1) mg/dl AST (15-37) U/L ALT (12-78) U/L Alkaline Phosphatase (45-117) U/L Troponin I (0-0.045) ng/ml C-Reactive Protein (0-0.29) mg/dl Total Protein (6.4-8.2) gm/dl Albumin (3.4-5.0) gm/dl Globulin (2.5-4.0) gm/dl Albumin/Globulin Ratio (0.9-2) Procalcitonin (0-0.5) ng/ml Urine Color Urine Appearance (Clear) Urine pH (4.5-7.5) Ur Specific Flora (1.000-1.030) Urine Protein (Negative) Urine Glucose (UA) (Negative) Urine Ketones (Negative) Urine Blood (Negative) Urine Nitrite (Negative) Urine Bilirubin (Negative) Urine Urobilinogen (Negative) Ur Leukocyte Esterase (Negative) Urine WBC (Auto) (0-5) /hpf Urine RBC (Auto) (0-4) /hpf U Hyaline Cast (Auto) (0-5) /lpf U Epithel Cells (Auto) (0-5) /lpf Urine Bacteria (Auto) (Negative) Urine Yeast 04/01/19 04/01/19 04/01/19 Range/Units 15:55 16:13 16:52 WBC (4.8-10.8) K/uL RBC (4.7-6.1) M/uL Hgb (14.0-18.0) g/dL POC Hgb 12.2 L (14.0-18.0) g/dl Hct (42-52) % POC Hct 36 L (42-52) % MCV (80-100) fL MCH (25-34) pg MCHC (32-36) g/dL RDW Std Deviation (36.4-46.3) fL RDW Coeff of Amandeep (11.5-14.5) % Plt Count (130-400) K/uL MPV (7.4-10.4) fL Immature Gran % (Auto) % Neut % (Auto) % Lymph % (Auto) % [place] % (Auto) % Eos % (Auto) % Baso % (Auto) % Immature Gran # (Auto) (0.00-0.02) K/uL Neut # (Auto) (1.4-6.5) K/uL Lymph # (Auto) (1.2-3.4) K/uL [place] # (Auto) (0.11-0.59) K/uL Eos # (Auto) (0-0.5) K/uL Baso # (Auto) (0-0.2) K/uL ESR (0-14) mm/hr PT (9.0-12.0) Seconds INR (0.9-1.1) APTT (21.0-31.0) Seconds PTT Ratio VBG pH (7.36-7.41) VBG pCO2 (38-50) mmHg VBG pO2 mmHg VBG HCO3 mmol/L VBG O2 Saturation % VBG Base Excess mEq/L Barometric Pressure mm/Hg POC Sodium 133 L (135-144) mEq/L Sodium 135 L (136-145) mmol/L POC Potassium 3.8 (3.3-5.0) mEq/L Potassium 3.7 (3.5-5.1) mmol/L POC Chloride 96 L (101-112) mEq/L Chloride 99 (98-107) mmol/L Carbon Dioxide 28 (21-32) mmol/L POC Total CO2 28 (24-31) mEq/l Anion Gap 8.0 (3-11) POC Anion Gap 15.0 L (16-25) mmol/L POC BUN 16 (7-18) mg/dl BUN 17 (7-18) mg/dl Creatinine 1.06 (0.6-1.4) mg/dl POC Creatinine 1.0 (0.6-1.3) mg/dl Est Cr Clr Drug Dosing 84.3 ml/min Est GFR ( Amer) 82.0 Est GFR (Non-Af Amer) 70.8 BUN/Creatinine Ratio 16.0 (10-20) Glucose 202 H (70-99) mg/dl POC Glucose (other) 205 H (70-99) mg/dl Lactate (0.4-2.0) mmol/L Calcium 8.6 (8.5-10.1) mg/dl POC Ioniz Calcium Maisha 1.05 L (1.12-1.32) mmol/l Magnesium 1.6 L (1.8-2.4) mg/dl Total Bilirubin 0.5 (0.2-1) mg/dl AST 23 (15-37) U/L ALT 14 (12-78) U/L Alkaline Phosphatase 98 (45-117) U/L Troponin I 0.018 (0-0.045) ng/ml C-Reactive Protein 3.24 H (0-0.29) mg/dl Total Protein 6.0 L (6.4-8.2) gm/dl Albumin 2.8 L (3.4-5.0) gm/dl Globulin 3.2 (2.5-4.0) gm/dl Albumin/Globulin Ratio 0.9 (0.9-2) Procalcitonin (0-0.5) ng/ml Urine Color Yellow Urine Appearance Turbid A (Clear) Urine pH 6.0 (4.5-7.5) Ur Specific Flora 1.017 (1.000-1.030) Urine Protein Trace H (Negative) Urine Glucose (UA) Negative (Negative) Urine Ketones Negative (Negative) Urine Blood 1+ H (Negative) Urine Nitrite Negative (Negative) Urine Bilirubin Negative (Negative) Urine Urobilinogen Negative (Negative) Ur Leukocyte Esterase 3+ H (Negative) Urine WBC (Auto) >30 H (0-5) /hpf Urine RBC (Auto) 10-30 H (0-4) /hpf U Hyaline Cast (Auto) 0 (0-5) /lpf U Epithel Cells (Auto) >30 H (0-5) /lpf Urine Bacteria (Auto) 4+ H (Negative) Urine Yeast Not Reportable 04/01/19 04/01/19 04/01/19 Range/Units 17:08 17:08 17:08 WBC (4.8-10.8) K/uL RBC (4.7-6.1) M/uL Hgb (14.0-18.0) g/dL POC Hgb (14.0-18.0) g/dl Hct (42-52) % POC Hct (42-52) % MCV (80-100) fL MCH (25-34) pg MCHC (32-36) g/dL RDW Std Deviation (36.4-46.3) fL RDW Coeff of Amandeep (11.5-14.5) % Plt Count (130-400) K/uL MPV (7.4-10.4) fL Immature Gran % (Auto) % Neut % (Auto) % Lymph % (Auto) % [place] % (Auto) % Eos % (Auto) % Baso % (Auto) % Immature Gran # (Auto) (0.00-0.02) K/uL Neut # (Auto) (1.4-6.5) K/uL Lymph # (Auto) (1.2-3.4) K/uL [place] # (Auto) (0.11-0.59) K/uL Eos # (Auto) (0-0.5) K/uL Baso # (Auto) (0-0.2) K/uL ESR (0-14) mm/hr PT (9.0-12.0) Seconds INR (0.9-1.1) APTT (21.0-31.0) Seconds PTT Ratio VBG pH 7.38 (7.36-7.41) VBG pCO2 51 H (38-50) mmHg VBG pO2 26 mmHg VBG HCO3 29 mmol/L VBG O2 Saturation < 60.0 % VBG Base Excess 3.4 mEq/L Barometric Pressure 737.9 mm/Hg POC Sodium (135-144) mEq/L Sodium (136-145) mmol/L POC Potassium (3.3-5.0) mEq/L Potassium (3.5-5.1) mmol/L POC Chloride (101-112) mEq/L Chloride (98-107) mmol/L Carbon Dioxide (21-32) mmol/L POC Total CO2 (24-31) mEq/l Anion Gap (3-11) POC Anion Gap (16-25) mmol/L POC BUN (7-18) mg/dl BUN (7-18) mg/dl Creatinine (0.6-1.4) mg/dl POC Creatinine (0.6-1.3) mg/dl Est Cr Clr Drug Dosing ml/min Est GFR ( Amer) Est GFR (Non-Af Amer) BUN/Creatinine Ratio (10-20) Glucose (70-99) mg/dl POC Glucose (other) (70-99) mg/dl Lactate 2.3 H* (0.4-2.0) mmol/L Calcium (8.5-10.1) mg/dl POC Ioniz Calcium Maisha (1.12-1.32) mmol/l Magnesium (1.8-2.4) mg/dl Total Bilirubin (0.2-1) mg/dl AST (15-37) U/L ALT (12-78) U/L Alkaline Phosphatase (45-117) U/L Troponin I (0-0.045) ng/ml C-Reactive Protein (0-0.29) mg/dl Total Protein (6.4-8.2) gm/dl Albumin (3.4-5.0) gm/dl Globulin (2.5-4.0) gm/dl Albumin/Globulin Ratio (0.9-2) Procalcitonin < 0.05 (0-0.5) ng/ml Urine Color Urine Appearance (Clear) Urine pH (4.5-7.5) Ur Specific Flora (1.000-1.030) Urine Protein (Negative) Urine Glucose (UA) (Negative) Urine Ketones (Negative) Urine Blood (Negative) Urine Nitrite (Negative) Urine Bilirubin (Negative) Urine Urobilinogen (Negative) Ur Leukocyte Esterase (Negative) Urine WBC (Auto) (0-5) /hpf Urine RBC (Auto) (0-4) /hpf U Hyaline Cast (Auto) (0-5) /lpf U Epithel Cells (Auto) (0-5) /lpf Urine Bacteria (Auto) (Negative) Urine Yeast Imaging Data Radiologist's Impression: Radiology results as stated below per my review and the radiologist's interpretation: CT abd pelvis IV con only CLINICAL HISTORY: Abdominal pain status post trauma. COMPARISON STUDY: March 25, 2019 TECHNIQUE: The patient was scanned in a dynamic helical fashion during intravenous administration of 90 cc of Optiray 320. The patient was uncooperative and there is motion artifact. The sequence was repeated. A dose lowering technique was utilized adhering to the principles of ALARA. CT DOSE: 4846.13 mGy.cm FINDINGS: Lower chest: There are coronary artery calcifications. There are no pleural effusions. There is no pneumothorax the lung bases. The heart is enlarged. Liver: The contrast-enhanced liver is normal in size, contour, and attenuation. There is no intrahepatic biliary ductal dilatation. The hepatic veins and portal veins are patent. Gallbladder: Unremarkable. Spleen: Normal in size and attenuation. Pancreas: Unremarkable. Adrenal glands: Unremarkable. Kidneys: There is no CT evidence of acute renal injury. There is a 5 mm left renal angiomyolipoma. Bowel: There are no transition zone to indicate bowel obstruction. There is no pathologic interloop fluid. There are no extraluminal gas collections. Peritoneum: There is no intraperitoneal free air or abdominal ascites. Vasculature: The abdominal aorta is normal in course and caliber. Adenopathy: None. Pelvic viscera: There is an indwelling Wise catheter. There is bladder wall thickening. There is a fat-containing left inguinal hernia. There is rectal wall thickening, similar to the prior study. Residual neoplasm cannot be excluded. Skeletal structures: No fractures are visualized. There are scattered sclerotic densities within the bony pelvis. IMPRESSION: 1. No evidence of acute intra-abdominal or pelvic injury 2. Persistent rectal wall thickening. Neoplasm cannot be excluded 3. Fat-containing left internal hernia 4. Bladder wall thickening 5. Scattered nonspecific sclerotic densities within the pelvis Electronically signed by: Thomas Lopez M.D. 04/01/2019 4:[address] DOSE: HISTORY: fall TECHNIQUE: Multiaxial CT images of the cervical spine were performed and reformatted in the sagittal and coronal plane without the use of contrast. A dose lowering technique was utilized adhering to the principles of ALARA. COMPARISON: Neck CTA 08/11/2018. FINDINGS: No fractures. No subluxation. Prevertebral soft tissues and the C1-C2 interval are intact. No pneumothorax. IMPRESSION: No fractures within the cervical spine. Electronically signed by: Alden Feliciano M.D. 04/01/2019 4:[address] DOSE: HISTORY: fall TECHNIQUE: Multiaxial CT images of the head were performed without the use of intravenous contrast. Automated exposure control was utilized for this study. A dose lowering technique was utilized adhering to the principles of ALARA. Comparison: Head CT 01/23/2019. Findings: Nondisplaced nasal bone fracture as well as a nasal septal fracture. Trace hemorrhage within the right maxillary sinus. The mastoid air cells are clear. The calvarium and skull base are intact. There is no mass, hematoma, midline shift, acute infarct. White matter hypodensity is nonspecific but suggestive of microvascular ischemic change. The ventricles and sulci demonstrate mild age-related involutional changes. 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 Impression: 1. No acute intracranial abnormality. 2. Nasal bone and nasal septal fractures. Electronically signed by: Alden Feliciano M.D. 04/01/2019 4:36 PM XR chest 1V portable HISTORY: Fall. Sepsis COMPARISON: Chest CT 04/01/2019. FINDINGS: There are low lung volumes. No pneumothorax. No pleural effusions. Mild elevation of the right hemidiaphragm, unchanged. The heart remains mildly enlarged. There are poststernotomy changes. Left Port-A-Cath tip is at the right brachiocephalic/SVC junction. Right-sided single lead pacemaker. No evidence for pulmonary edema. No focal lung consolidations. IMPRESSION: 1. Stable mild cardiomegaly and low lung volumes. 2. The tip of the left subclavian Port-A-Cath terminates at the right brachiocephalic/SVC junction. Electronically signed by: Alden Feliciano M.D. 04/01/2019 5:05 PM XR femur LT 2V routine CLINICAL HISTORY: Left femur pain status post trauma COMPARISON: X-ray study in the dated 01/25/2019 DISCUSSION: There are advanced osteoarthritic changes involving the left knee. There are no acute fractures identified. There is no dislocation. There is a suprapatellar joint effusion. IMPRESSION: 1. No acute fractures or dislocations identified 2. Advanced osteoarthritic changes involving the left knee. Left knee joint effusion. Electronically signed by: Thomas Lopez M.D. 04/01/2019 4:53 PM XR knee LT 2V routine CLINICAL HISTORY: Left knee pain status post trauma COMPARISON: December 2018 DISCUSSION: There are advanced osteoarthritic changes present. There is a suprapatellar joint effusion. There are no acute fractures. IMPRESSION: 1. No acute fractures 2. Advanced osteoarthritic changes. Joint effusion. Electronically signed by: Thomas Lopez M.D. 04/01/2019 4:[address] WITH CONTRAST CT DOSE: HISTORY: fall TECHNIQUE: Multiaxial CT images of the chest were performed following the intravenous administration of contrast. A dose lowering technique was utilized adhering to the principles of ALARA. COMPARISON: Chest CT 03/25/2019. FINDINGS: Stable aneurysmal dilatation of the rostral left subclavian artery m easuring 2.3 cm and the ascending thoracic aorta measuring 4.8 cm. Cardiac valve prosthesis is noted. No evidence for dissection. The heart is mildly enlarged. Right-sided pacemaker is noted. Trace right pleural effusion. No pericardial effusion. Normal esophagus. No mediastinal hematoma. No mediastinal or hilar lymphadenopathy. The main pulmonary arteries are patent but dilated consistent with pulmonary arterial hypertension. This is also unchanged. A left subclavian Port-A-Cath terminates in the brachiocephalic/SVC junction. Please refer to the same day abdomen and pelvis CT for further evaluation of the abdominal structures. There are poststernotomy changes. Focal deformity within the right anterior seventh rib which is new from the prior study. This is consistent with a nondisplaced fracture. Stable 7 mm sclerotic focus within the right scapular tip. This is indeterminate but favors a bone island. This remains stable. No pneumothorax. No focal lung consolidations. The central airways are patent. IMPRESSION: 1. Acute right anterior seventh rib fracture. No pneumothorax. 2. Trace right pleural effusion. 3. Stable 7 mm sclerotic focus within the right scapular tip. This is indet erminate but favors a benign bone island. This bears watching on future examinations. 4. Otherwise, no evidence for metastatic disease within the chest. 5. Additional findings as described above. Electronically signed by: Alden Feliciano M.D. 04/01/2019 4:48 PM ECG Data Attestation: I personally reviewed and interpreted this ECG as follows: Indication: altered mental status Rate (beats per minute): 87 Rhythm: atrial fibrillation Findings: + PVC (PVCs noted ) and + ST depression (Lateral) Comparison ECG Date: from (01/24/19) Change: no significant change Blood Pressure Blood Pressure Findings: Elevated blood pressure Blood Pressure Disposition: further management by hospitalist MDM Narrative The patient is a 69-year-old male who presented to the emergency department by ambulance. The patient normally lives with his family members. His brother states that he heard the patient yell out in the bathroom. It is unclear if the patient had a syncopal episode or if he fell. The patient does have an implantable defibrillator. The patient was very combative and confused on scene. I received a prehospital notification about this patient. Sedation was ordered so the patient could be brought to the emergency department. The patient arrived to the emergency department. He was still very confused. We were unable to get significant history on the patient. The patient was treated with IV fluids as well as IV magnesium replacement. He was also treated with IV antibiotics for presumed urinary tract infection. The patient had a CAT scan of the head neck. No acute disease was noted. CAT scan of the chest revealed no signs of intrathoracic trauma but did show a rib fracture. The patient also on physical exam had a very swollen left knee. It was unclear if this was an acute fracture however x-ray did not reveal any signs of acute fracture. I discussed the patient's laboratory and radiographic studies with him and his family members. While he was observed in the emergency department his symptoms si gnificantly improved although he was still somewhat confused and slow to follow commands. Because of his ongoing symptoms his defibrillator was interrogated. I also discussed his case with the on-call [facility] hospitalist group. They have agreed to evaluate the patient in the emergency department for further management disposition. The patient was sedated minimally while he was in the emergency department for his own safety as well as for safety of the staff. At the request of the family members sedation was kept at a minimum so the patient would not require intubation given that he would not want this intervention. Impression & Plan Altered mental status, UTI (urinary tract infection), Fall, Contusion of knee, left, Fracture of nasal bone, Closed fracture of seven ribs of right side, Hypomagnesemia Critical Care Time Critical Care Time: Yes Total Critical Care Time: 45 I have personally spent greater than 45 minutes of critical care time in the direct management of this patient. This includes bedside care, interpretation of diagnostic studies, and testing, discussion with consultants, patient, and family members, and other required patient management activities. This 45 minutes is in excess of all separately billable procedures. Discharge Plan Visit Data *Final* Discharge Date/Time: 04/01/19 21:11 Chief Complaint: Fall Stated Complaint: FALL, LEG INJURY, UNCOOPERATIVE ED Provider: Ronald Youssef Discharge Problem: Altered mental status, UTI (urinary tract infection), Fall, Contusion of knee, left, Fracture of nasal bone, Closed fracture of seven ribs of right side, Hypomagnesemia Patient Disposition: Admitted As Inpatient Discharge Instructions Interventions: ED Discharge Assessment Last Done: 04/01/19 21:11 Discharge Problem: Altered mental status Qualifiers: Altered mental status type: unspecified Qualified Code(s): R41.82 - Altered mental status, unspecified UTI (urinary tract infection) Qualifiers: Urinary tract infection type: site unspecified Hematuria presence: without hematuria Qualified Code(s): N39.0 - Urinary tract infection, site not specified Fall Qualifiers: Encounter type: initial encounter Qualified Code(s): W19.XXXA - Unspecified fall, initial encounter Contusion of knee, left Qualifiers: Encounter type: initial encounter Qualified Code(s): S80.02XA - Contusion of left knee, initial encounter Fracture of nasal bone Qualifiers: Encounter type: initial encounter Fracture type: closed Qualified Code(s): S02.2XXA - Fracture of nasal bones, initial encounter for closed fracture Closed fracture of seven ribs of right side Qualifiers: Encounter type: initial encounter Qualified Code(s): S22.41XA - Multiple fractures of ribs, right side, initial encounter for closed fracture The scribe's documentation has been prepared under my direction and personally reviewed by me in its entirety. I confirm that the note above accurately reflects all work, treatment, procedures, and medical decision making performed by me.
[2019-04-01 16:22] LABS: Hematocrit (blood only) 36.2 % (42-52); Hemoglobin 12.2 g/dL (14.0-18.0); Immature Granulocytes # (auto) 0.04 K/uL (0.00-0.02); Immature Granulocytes % (auto) 0.3 %; Lymphocytes # (auto) 1.11 K/uL (1.2-3.4); Lymphocytes % (auto) 8.6 %; Mean Corpuscular Hemoglobin 32.4 pg (25-34); Mean Corpuscular Hgb Conc 33.7 g/dL (32-36); Mean Platelet Volume 10.3 fL (7.4-10.4); Monocytes # (auto) 0.13 K/uL (0.11-0.59); Neutrophils % (auto) 90.1 %; Platelet Count 192 K/uL (130-400); RDW Standard Deviation 63.2 fL (36.4-46.3); Red Blood Count 3.77 M/uL (4.7-6.1); White Blood Count 12.98 K/uL (4.8-10.8)
[2019-04-01] MEDS ORDERED: IOVERSOL 100ml IV PRN (16:24)
[2019-04-01 16:28] LABS: iSTAT Hemoglobin 12.2 g/dl (14.0-18.0); iSTAT Ionized Calcium 1.05 mmol/l (1.12-1.32); iSTAT Potassium 3.8 mEq/L (3.3-5.0)
[2019-04-01 16:31] LABS: INR 1.1 (0.9-1.1); Partial Thromboplastin Ratio 0.8; Prothrombin Time 10.9 Seconds (9.0-12.0)
--- NOTE | 2019-04-01 16:37 | CT Scan Report ---
HEAD CT NONCONTRAST CT DOSE: HISTORY: fall TECHNIQUE: Multiaxial CT images of the head were performed without the use of intravenous contrast. A utomated exposure control was utilized for this study. A dose lowering technique was utilized adheri ng to the principles of ALARA. Comparison: Head CT 01/23/2019. Findings: Nondisplaced nasal bone fracture as well as a nasal septal fracture. Trace hemorrhage withi n the right maxillary sinus. The mastoid air cells are clear. The calvarium and skull base are intact . There is no mass, hematoma, midline shift, acute infarct. White matter hypodensity is nonspecific b ut suggestive of microvascular ischemic change. The ventricles and sulci demonstrate mild age-related involutional changes. 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 Impression: 1. No acute intracranial abnormality. 2. Nasal bone and nasal septal fractures. Electronically signed by: Alden Feliciano M.D. 04/01/2019 4:36 PM
--- NOTE | 2019-04-01 16:40 | CT Scan Report ---
CT abd pelvis IV con only CLINICAL HISTORY: Abdominal pain status post trauma. COMPARISON STUDY: March 25, 2019 TECHNIQUE: The patient was scanned in a dynamic helical fashion during intravenous administration of 90 cc of Optiray 320. The patient was uncooperative and there is motion artifact. The sequence was re peated. A dose lowering technique was utilized adhering to the principles of ALARA. CT DOSE: 4846.13 mGy.cm FINDINGS: Lower chest: There are coronary artery calcifications. There are no pleural effusions. There is no pn eumothorax the lung bases. The heart is enlarged. Liver: The contrast-enhanced liver is normal in size, contour, and attenuation. There is no intrahepa tic biliary ductal dilatation. The hepatic veins and portal veins are patent. Gallbladder: Unremarkable. Spleen: Normal in size and attenuation. Pancreas: Unremarkable. Adrenal glands: Unremarkable. Kidneys: There is no CT evidence of acute renal injury. There is a 5 mm left renal angiomyolipoma. Bowel: There are no transition zone to indicate bowel obstruction. There is no pathologic interloop f luid. There are no extraluminal gas collections. Peritoneum: There is no intraperitoneal free air or abdominal ascites. Vasculature: The abdominal aorta is normal in course and caliber. Adenopathy: None. Pelvic viscera: There is an indwelling Wise catheter. There is bladder wall thickening. There is a f at-containing left inguinal hernia. There is rectal wall thickening, similar to the prior study. Resi dual neoplasm cannot be excluded. Skeletal structures: No fractures are visualized. There are scattered sclerotic densities within the bony pelvis. IMPRESSION: 1. No evidence of acute intra-abdominal or pelvic injury 2. Persistent rectal wall thickening. Neoplasm cannot be excluded 3. Fat-containing left internal hernia 4. Bladder wall thickening 5. Scattered nonspecific sclerotic densities within the pelvis Electronically signed by: Thomas Lopez M.D. 04/01/2019 4:39 PM
--- NOTE | 2019-04-01 16:40 | CT Scan Report ---
CERVICAL SPINE CT CT DOSE: HISTORY: fall TECHNIQUE: Multiaxial CT images of the cervical spine were performed and reformatted in the sagittal and coronal plane without the use of contrast. A dose lowering technique was utilized adhering to th e principles of ALARA. COMPARISON: Neck CTA 08/11/2018. FINDINGS: No fractures. No subluxation. Prevertebral soft tissues and the C1-C2 interval are intact. No pneumothorax. IMPRESSION: No fractures within the cervical spine. Electronically signed by: Alden Feliciano M.D. 04/01/2019 4:39 PM
[2019-04-01 16:46] LABS: Albumin Level 2.8 gm/dl (3.4-5.0); C Reactive Protein 3.24 mg/dl (0-0.29); Calcium 8.6 mg/dl (8.5-10.1); Creatinine Clr Calc Pharmacy 84.3 ml/min; Est GFR (Non-African American) 70.8; Magnesium 1.6 mg/dl (1.8-2.4); Potassium 3.7 mmol/L (3.5-5.1)
[2019-04-01 16:50] LABS: Albumin Globulin Ratio 0.9 (0.9-2); Bilirubin,Total 0.5 mg/dl (0.2-1); Globulin 3.2 gm/dl (2.5-4.0); Troponin I 0.018 ng/ml (0-0.045)
--- NOTE | 2019-04-01 16:50 | CT Scan Report ---
CHEST CT WITH CONTRAST CT DOSE: HISTORY: fall TECHNIQUE: Multiaxial CT images of the chest were performed following the intravenous administration of contrast. A dose lowering technique was utilized adhering to the principles of ALARA. COMPARISON: Chest CT 03/25/2019. FINDINGS: Stable aneurysmal dilatation of the rostral left subclavian artery measuring 2.3 cm and the ascending thoracic aorta measuring 4.8 cm. Cardiac valve prosthesis is noted. No evidence for dissec tion. The heart is mildly enlarged. Right-sided pacemaker is noted. Trace right pleural effusion. No pericardial effusion. Normal esophagus. No mediastinal hematoma. No mediastinal or hilar lymphadenopa thy. The main pulmonary arteries are patent but dilated consistent with pulmonary arterial hypertensi on. This is also unchanged. A left subclavian Port-A-Cath terminates in the brachiocephalic/SVC junct ion. Please refer to the same day abdomen and pelvis CT for further evaluation of the abdominal struc tures. There are poststernotomy changes. Focal deformity within the right anterior seventh rib which is new from the prior study. This is consistent with a nondisplaced fracture. Stable 7 mm sclerotic f ocus within the right scapular tip. This is indeterminate but favors a bone island. This remains stab le. No pneumothorax. No focal lung consolidations. The central airways are patent. IMPRESSION: 1. Acute right anterior seventh rib fracture. No pneumothorax. 2. Trace right pleural effusion. 3. Stable 7 mm sclerotic focus within the right scapular tip. This is indeterminate but favors a chano gn bone island. This bears watching on future examinations. 4. Otherwise, no evidence for metastatic disease within the chest. 5. Additional findings as described above. Electronically signed by: Alden Feliciano M.D. 04/01/2019 4:48 PM
--- NOTE | 2019-04-01 16:54 | XRay Report ---
XR femur LT 2V routine CLINICAL HISTORY: Left femur pain status post trauma COMPARISON: X-ray study in the dated 01/25/2019 DISCUSSION: There are advanced osteoarthritic changes involving the left knee. There are no acute fra ctures identified. There is no dislocation. There is a suprapatellar joint effusion. IMPRESSION: 1. No acute fractures or dislocations identified 2. Advanced osteoarthritic changes involving the left knee. Left knee joint effusion. Electronically signed by: Thomas Lopez M.D. 04/01/2019 4:53 PM
--- NOTE | 2019-04-01 16:55 | XRay Report ---
XR knee LT 2V routine CLINICAL HISTORY: Left knee pain status post trauma COMPARISON: December 2018 DISCUSSION: There are advanced osteoarthritic changes present. There is a suprapatellar joint effusio n. There are no acute fractures. IMPRESSION: 1. No acute fractures 2. Advanced osteoarthritic changes. Joint effusion. Electronically signed by: Thomas Lopez M.D. 04/01/2019 4:53 PM
--- NOTE | 2019-04-01 17:06 | XRay Report ---
XR chest 1V portable HISTORY: Fall. Sepsis COMPARISON: Chest CT 04/01/2019. FINDINGS: There are low lung volumes. No pneumothorax. No pleural effusions. Mild elevation of the ri ght hemidiaphragm, unchanged. The heart remains mildly enlarged. There are poststernotomy changes. Le ft Port-A-Cath tip is at the right brachiocephalic/SVC junction. Right-sided single lead pacemaker. N o evidence for pulmonary edema. No focal lung consolidations. IMPRESSION: 1. Stable mild cardiomegaly and low lung volumes. 2. The tip of the left subclavian Port-A-Cath terminates at the right brachiocephalic/SVC junction. Electronically signed by: Alden Feliciano M.D. 04/01/2019 5:05 PM
[2019-04-01 17:09] LABS: Appearance Urine Turbid (Clear); Bacteria Urine Automated 4+ (Negative); Bilirubin Urine Negative (Negative); Blood Urine 1+ (Negative); Color Urine Yellow; Epithelial Cell Urine Auto >30 /lpf (0-5); Glucose Urine UA Negative (Negative); Ketones Urine Negative (Negative); Leukocyte Esterase Urine 3+ (Negative); Nitrite Urine Negative (Negative); Protein Urine Trace (Negative); Specific Gravity Urine 1.017 (1.000-1.030); Urobilinogen Urine Negative (Negative); WBC Urine Automated >30 /hpf (0-5)
[2019-04-01 17:20] LABS: Base Excess VBG 3.4 mEq/L; HCO3 VBG 29 mmol/L; PCO2 VBG 51 mmHg (38-50); PO2 VBG 26 mmHg; pH VBG 7.38 (7.36-7.41)
[2019-04-01] MEDS ORDERED: PIPERACILLIN/TAZOBACTAM 4.5 GM/120 ML BAG IV ONE (17:20)
[2019-04-01] MEDS ORDERED: PIPERACILL/TAZOBAC CONSULT ACTIVE PRN (17:20)
[2019-04-01 17:21] LABS: Oxygen Saturation VBG < 60.0 %
[2019-04-01] MEDS: MAGNESIUM SULFATE / D5W 1 GM/100 ML BAG IV SCH ×2 (17:25→18:24)
[2019-04-01 17:28] LABS: Cast Urine Automated 0 /lpf (0-5)
[2019-04-01] MEDS ORDERED: SODIUM CHLORIDE 0.9% 1000ML 1,000 ML IV ONE (17:45)
--- NOTE | 2019-04-01 20:15 | History & Physical Report ---
Date of Service April 01, 2019 Assessment & Plan (1) Sepsis: Admit to PCU on telemetry Vital signs every 4 hours Repeat lactic acid upon arrival to the floor Start ceftriaxone 2 g IV every 24 hours Stop Zosyn IV Follow-up urinary and blood cultures Monitor electrolytes magnesium and potassium. Keep magnesium above 2 and potassium above 4. Sparingly to give small boluses of fluid if patient hypotensive. Not more than 250 mils at the time because patient ejection fraction is only 30 to 35%. TTE Consult cardiology DVT prophylaxis SCDs and teds, hold chemical anticoagulation at this time due to recent epistaxis with head trauma and history of GI bleed. Per patient family request patient is DNR/DNI. Present on Admission?: Yes (2) Hypomagnesemia: Magnesium is at low level at 1.6. Given 2 g by ambulance and 1 g in the emergency room. Follow-up magnesium in the morning Present on Admission?: Yes (3) Closed fracture of seven ribs of right side: Continue pain management. Observe closely for flail chest. Continue supplemental oxygen at this point at 4 L. Present on Admission?: Yes (4) Fracture of nasal bone: Nondisplaced nasal bone fracture as well as a nasal septal fracture. Observe for epistaxis. Pain management Present on Admission?: Yes (5) UTI (urinary tract infection): Urinary tract infection with turbid appearance of urine 1+ positive blood, 3+ positive leukocyte esterase over 30 WBC, negative nitrates, and 4+ positive bacteria. Given Zosyn in the emergency room and plan to continue with ceftriaxone 2 g IV every 24 hours empirically while cultures are pending. Present on Admission?: Yes (6) Sleep apnea: Patient knows that he has obstructive sleep apnea but he does not use a CPAP. Present on Admission?: Yes (7) ICD (implantable cardioverter-defibrillator) in place: Patient has nonischemic cardiomyopathy. Most recent ejection fraction is 35%. Patient was given 1 L of normal saline in the emergency room. DC IV fluids due to low ejection fraction. Continue holding diuretics and other medical medication at this time. Monitor for volume overload. Present on Admission?: Yes (8) Rectal adenocarcinoma: Diagnosed earlier in 2019. Patient is status post radiation therapy and currently on chemotherapy. Present on Admission?: Yes (9) HLD (hyperlipidemia): Continue statin (10) CVA (cerebral vascular accident): Patient is a on Keppra due to previous CVA Continue Keppra Present on Admission?: Yes (11) Afib: Permanent A. fib's. Patient is not on anticoagulation due to previous rectal bleeding colon cancer. Hold carvedilol due to hypotension as above Monitor on telemetry Present on Admission?: Yes (12) H/O aortic valve replacement: Aortic valve replaced in 2010. Bioprosthetic Stable and functioning well Present on Admission?: Yes History of Present Illness Chief Complaint: Syncope Primary Care Provider: Erika Negro Patient is a 69 years old male with past medical history of colon cancer status post radiation and currently on chemotherapy, chronic diarrhea, aortic valve replacement, chronic systolic CHF with ejection fraction of of 30 to 35%, nonischemic cardiomyopathy , history of recurrent episodes of syncope and ventricular tachycardia status post ICD placement on January 25, 2019, A. fib, diabetes mellitus type 2, BPH, hyperlipidemia, GERD, and left MCA territory CVA who presents to the emergency room for passing out in the bathroom today. The patient family states that the patient was normal this morning then they heard a yell and a crash while he was in the bathroom. The family called 911 immediately after the fall.Per EMS the patient was found unresponsive, tachycardic, and with epistaxis on the floor of the bathroom. EMS reports that they were called for cardiac arrest, stating that the patient became more responsive on the way to the hospital. Per EMS the patient was agitated and he has a left lower extremity deformity. EMS stated that patient received 2 mg of IM Ativan. Patient was had to put in four-point wrist restraint because of his agitation. Patient has a pacemaker/defibrillator. In the emergency room patient received magnesium sulfate 1 g in addition, 1 L of normal saline, 1 dose of Zosyn 4.5 g, and midazolam 10 mg for agitation. [employer] transportation services representative interrogated patient pacemaker defibrillator and he noted one episode of rapid rhythm. Labs are reviewed: WBC 12.98, hemoglobin 12.2, hematocrit 36.2 kalyan telets 192, PT 10.9, INR 1.1, 8 PTT 22. Sodium 135, potassium 3.7, chloride 99, BUN 17, creatinine 1.06, GFR 70.8, 2.3, AST 23, ALT 14, troponin 0 0.018, C- reactive protein 3.24, total protein 6, procalcitonin 0.05. Troponin pending BNP pending. Urine positive for blood, for 3+ leukocyte esterase, 4+ bacteria. CT of the cervical spine shows: No fracture with in the cervical spine. Chest CT shows acute right anterior seventh rib fracture. No pneumothorax. Trace right pleural effusion. Stable 7 mm sclerotic foci within the right scapula tip. This is indeterminate but favors a begin bone island. No evidence of metastatic disease within the chest. Chest x-rays shows mild cardiomegaly and low lung volumes. The tip of the left subclavian port a catheter terminates at the right brachiocephalic SVC junction. X-rays of the left femur shows no acute fracture or dislocation identified. Advanced osteoarthritic changes involving the left knee. Left knee joint effusion. The of the head shows no acute intracranial abnormality. The nasal bone and nasal septal fractures. Left knee x-ray show no acute fracture. Advanced osteoarthritic changes. Joint effusion. Abdomen pelvis CT shows no evidence of acute intra-abdominal or pelvic injury. Persistent rectal wall thickening. Neoplasm cannot be excluded. Fat-containing left internal hernia. Bladder wall thickening. Decision was made to admit patient to PCU on telemetry for sepsis, urinary tract infection, syncope, hypotension, for further management and treatment. Allergies Allergy/AdvReac Type Severity Reaction Status Date / Time No Known Allergies Allergy Verified 04/01/19 17:03 Home Medications Home Medications Medication Instructions Recorded Confirmed Type aspirin [Aspirin Low Dose] 81 mg PO QAM 08/11/18 04/01/19 History folic acid 400 mcg PO QAM 08/11/18 04/01/19 History spironolactone 25 mg PO QAM 08/11/18 04/01/19 History ascorbic acid (vitamin C) [Vitamin 500 mg PO QAM 09/07/18 04/01/19 History C] omega 6-hfb-spk-fish oil [Fish Oil] 1 cap PO QAM 09/07/18 04/01/19 History omeprazole 20 mg PO QAM 09/07/18 04/01/19 History tamsulosin [Flomax] 0.4 mg PO QPM 09/07/18 04/01/19 History Levemir U-100 Insulin 10 unit SUBCUT HS 11/16/18 04/01/19 History cholestyramine-aspartame 4 g PO BID@1000,2200 #60 ea 01/26/19 04/01/19 Rx [Cholestyramine Light] amoxicillin 500 mg tablet 2,000 mg PO ONCE PRN tab 02/04/19 04/01/19 History carvedilol 12.5 mg tablet 12.5 mg PO BID #60 tab 02/04/19 04/01/19 History sacubitril 24 mg-valsartan 26 mg 1 tab PO BID 02/04/19 04/01/19 History tablet atorvastatin 20 mg tablet 20 mg PO HS 03/03/19 04/01/19 History diclofenac sodium [Voltaren] 1 gm TOPICAL QID PRN 04/01/19 04/01/19 History ferrous sulfate 325 mg PO TID 04/01/19 04/01/19 History furosemide [Lasix] 40 mg PO QAM 04/01/19 04/01/19 History ibuprofen 600 mg PO Q8H PRN 04/01/19 04/01/19 History multivitamin 1 tab PO DAILY 04/01/19 04/01/19 History oxycodone-acetaminophen 1 tab PO Q6H PRN 04/01/19 04/01/19 History potassium chloride [Klor-Con M20] 20 meq PO DAILY 04/01/19 04/01/19 History prednisone 20 mg PO QAM 04/01/19 04/01/19 History Past Med/Surg History Medical History Sleep apnea (Chronic) Aortic stenosis Nonischemic cardiomyopathy CVA (cerebral vascular accident) 08/11/18 HLD (hyperlipidemia) HTN (hypertension) DM type 2 (diabetes mellitus, type 2) Seizure "SMALL SEIZURE AT TIME OF CVA 07/2018" Kidney disease (Chronic) AAA (abdominal aortic aneurysm) NEW FINDING Anemia Atrial fibrillation BPH (benign prostatic hyperplasia) Cancer COLON CANCER (NEW DX) RADIATION JUST COMPLETED Chronic systolic (congestive) heart failure Colon cancer Congestive heart failure GERD (gastroesophageal reflux disease) Osteoarthritis Sleep apnea Surgical History H/O aortic valve replacement (Chronic) 2010 AT [facility] Port-A-Cath in place (Chronic) H/O knee surgery RT/LEFT History of cardiac cath 2010 History of colonoscopy History of tooth extraction Family History Brother Family history of diabetes mellitus Mother Colon cancer Father Coronary heart disease Hypertension Sister Hypertension Grandmother Diabetes Social History Preferred Language: Belgian Communication Ability: Effective Bee Worker Required: No Beliefs That Will Affect Care: Muslim Muslim Beliefs: Jehovia Witness marital status: Current Living Situation: Family Feels Safe at Home: Yes Smoking Status: Never smoker Tobacco Type: cigarettes ; Age Quit Using Tobacco: 48 ; Cigarettes Per Day: 5 ; Second Hand Exposure: No ; Hx Alcohol Use: No Hx Substance Use: No Review of Systems Review of Systems: All systems reviewed & are unremarkable except as noted in HPI & below Physical Exam Constitutional: WD/WN, vitals as above well developed Eyes: PERRL, conjunctivae normal, anicteric sclerae ENMT: Nose: + facial exam abnormality (Patient has broken nasal bone , face is swollen and covered with old blood) Neck: trachea midline, no thyromegaly Respiratory: normal respiratory effort, lungs clear to auscultation Cardiovascular: RRR, no murmur, no edema Heart Sounds: normal S1 and normal S2 Palpation: + palpable S3 Vessels: dorsalis pedis pulses present Extremities: + pedal edema Gastrointestinal (Abdomen): normal bowel sounds, soft, nontender, no hepatosplenomegaly Musculoskeletal: no cyanosis or clubbing, extremities motor strength 5/5 Skin: no rashes, warm and dry Neurologic: Patient is was sleeping during the examination. He is arousable. patient is on 4 L of oxygen. Psychiatric: A+Ox3, euthymic affect Lymphatic: no cervical or axillary lymphadenopathy Results & Data Vital Signs (Past 12 Hours) Vital Signs Temp Pulse Pulse Resp BP BP Pulse Ox 04/01/19 19:00 56 L 16 95/59 L 100 04/01/19 18:41 58 L 18 89/58 L 100 04/01/19 18:35 56 L 18 104/64 100 04/01/19 18:32 65 18 105/67 100 04/01/19 18:30 54 L 14 78/60 L 99 04/01/19 18:26 54 L 14 88/57 L 97 04/01/19 18:21 59 L 14 97/51 L 98 04/01/19 18:15 58 L 14 86/61 L 98 04/01/19 18:10 57 L 14 90/54 L 98 04/01/19 18:05 57 L 14 85/57 L 97 04/01/19 18:00 60 14 92/56 L 96 04/01/19 17:55 62 16 88/60 L 95 04/01/19 17:50 65 16 78/56 L 99 04/01/19 17:47 71 16 73/55 L 98 04/01/19 17:46 69 16 78/54 L 99 04/01/19 17:32 78 18 106/64 100 04/01/19 17:16 83 18 114/71 100 04/01/19 17:01 96 H 18 111/76 100 04/01/19 16:58 88 18 96/83 L 100 04/01/19 16:40 92 H 18 100 04/01/19 16:38 98 04/01/19 16:30 94 H 18 110/69 100 04/01/19 16:28 89 18 100 04/01/19 16:00 36.1 C L 99 H 16 109/70 91 04/01/19 15:58 107 H 19 109/70 97 Code Status & VTE Plan Code Status DNR/DNI per family request VTE Prophylaxis Plan VTE Prophylaxis will be ordered: No PG Care Time/CCT Total # of Minutes Spent Total Time Spent with Patient: Total time spent is greater than 50% in coordination of care (as documented) at patient's floor/unit and/or counseling patient: (1) Closed fracture of seven ribs of right side Encounter type: initial encounter Qualified Code(s): S22.41XA - Multiple fractures of ribs, right side, initial encounter for closed fracture (2) Fracture of nasal bone Encounter type: initial encounter Fracture type: closed Qualified Code(s): S02.2XXA - Fracture of nasal bones, initial encounter for closed fracture (3) UTI (urinary tract infection) Hematuria presence: without hematuria Urinary tract infection type: site unspecified Qualified Code(s): N39.0 - Urinary tract infection, site not specified (4) HLD (hyperlipidemia) Hyperlipidemia type: mixed hyperlipidemia Qualified Code(s): E78.2 - Mixed hyperlipidemia (5) CVA (cerebral vascular accident) CVA mechanism: embolism Precerebral and cerebral artery: middle cerebral artery Laterality of affected vessel: left Qualified Code(s): I63.412 - Cerebral infarction due to embolism of left middle cerebral artery (6) Afib Atrial fibrillation type: chronic Qualified Code(s): I48.2 - Chronic atrial fibrillation
[2019-04-01] MEDS ORDERED: DICLOFENAC SOD 1% GEL 100 GM TUBE EXT PRN (21:54)
[2019-04-01] MEDS ORDERED: SODIUM CHLORIDE 0.9% 1000ML 1,000 ML IV SCH (21:54)
[2019-04-01] MEDS ORDERED: POTASSIUM CHLORIDE 20 MEQ TABCR PO STA (21:54)
[2019-04-01] MEDS ORDERED: PHARMACY GLYCEMIC MGMT CONSULT PRN (22:06)
--- NOTE | 2019-04-01 22:16 | XRay Report ---
XR chest 1V portable HISTORY: weakness COMPARISON: Chest 04/01/2019. FINDINGS: No pneumothorax. No pleural effusions. The heart remains mildly enlarged. Stable mild eleva tion of the right hemidiaphragm. No evidence for pulmonary edema. No new focal lung consolidations to suggest pneumonia. Poststernotomy changes and a cardiac valve prosthesis are again noted. The tip of the left subclavian Port-A-Cath terminates in the distal right brachiocephalic vein. This remains un changed. IMPRESSION: No significant change compared to the prior study. No acute process. Electronically signed by: Alden Feliciano M.D. 04/01/2019 10:15 PM
[2019-04-01] MEDS ORDERED: DEXTROSE 50% 50 ML SYRINGE IV PRN (22:30)
[2019-04-01] MEDS ORDERED: INSULIN ASPART 100 UNITS/ML 3 ML PEN SC ONE (22:30)
[2019-04-01] MEDS ORDERED: GLUCOSE 10 TABS/TUBE PO PRN (22:30)
[2019-04-01] MEDS ORDERED: GLUCOSE 40% GEL 15 GM TUBE PO PRN (22:30)
[2019-04-01] MEDS ORDERED: CARBOHYDRATES FOR HYPOGLYCEMIA PO PRN (22:30)
[2019-04-01] MEDS ORDERED: GLUCAGON FOR INJ 1 MG VIAL IM PRN (22:30)
[2019-04-01 22:31] LABS: Hematocrit (blood only) 37.6 % (42-52); Hemoglobin 12.4 g/dL (14.0-18.0); Immature Granulocytes # (auto) 0.02 K/uL (0.00-0.02); Immature Granulocytes % (auto) 0.2 %; Lymphocytes # (auto) 0.79 K/uL (1.2-3.4); Lymphocytes % (auto) 6.6 %; Mean Corpuscular Volume 96.9 fL (80-100); Mean Platelet Volume 9.7 fL (7.4-10.4); Monocytes # (auto) 0.12 K/uL (0.11-0.59); Neutrophils # (auto) 11.03 K/uL (1.4-6.5); Neutrophils % (auto) 92.2 %; Platelet Count 149 K/uL (130-400); RDW Coefficient of Variation 18.1 % (11.5-14.5); RDW Standard Deviation 63.5 fL (36.4-46.3); Red Blood Count 3.88 M/uL (4.7-6.1); White Blood Count 11.96 K/uL (4.8-10.8)
[2019-04-01] MEDS: ATORVASTATIN 20 MG TAB PO SCH (22:45)
[2019-04-01] MEDS: TAMSULOSIN HCL 0.4 MG CAP PO SCH (22:45)
[2019-04-01] MEDS: cefTRIAXone SODIUM 2,000 MG in DEXTROSE 5% 50 ML IV SCH (22:45)
[2019-04-01 22:57] LABS: Albumin Level 2.5 gm/dl (3.4-5.0); BUN Creatinine Ratio 15.2 (10-20); Calcium 8.5 mg/dl (8.5-10.1); Creatinine Clr Calc Pharmacy 83.3 ml/min; Est GFR (African American) 91.3; Est GFR (Non-African American) 78.8
[2019-04-01 22:58] LABS: Potassium 4.3 mmol/L (3.5-5.1)
[2019-04-01 23:07] LABS: Albumin Globulin Ratio 0.8 (0.9-2); Bilirubin,Total 0.5 mg/dl (0.2-1); Globulin 3.1 gm/dl (2.5-4.0); Thyroid Stimulating Hormone 0.629 uIu/ml (0.300-4.500); Total Protein 5.6 gm/dl (6.4-8.2); Troponin I 0.028 ng/ml (0-0.045)
[2019-04-01 23:13] LABS: Appearance Urine Cloudy (Clear); Bacteria Urine Automated 4+ (Negative); Bilirubin Urine Negative (Negative); Blood Urine Trace (Negative); Color Urine Yellow; Glucose Urine UA Negative (Negative); Ketones Urine Negative (Negative); Leukocyte Esterase Urine 3+ (Negative); Nitrite Urine Positive (Negative); Protein Urine Negative (Negative); RBC Urine Automated 0-4 /hpf (0-4); Urobilinogen Urine Negative (Negative); WBC Urine Automated >30 /hpf (0-5); pH Urine 5.5 (4.5-7.5)
[2019-04-01 23:30] LABS: Amphetamines+Metham, Urine Neg (Neg); Barbiturates, Urine Neg (Neg); Benzodiazepine, Urine Pos (Neg); Cocaine, Urine Neg (Neg); MDMA (Ecstacy), Urine Neg (Neg); Methadone, Urine Neg (Neg); Opiate, Urine Neg (Neg); Phencyclidine, Urine Neg (Neg)
[2019-04-01] MEDS ORDERED: INSULIN DETEMIR FLEXPEN/FLEX TOUCH 100 UNITS/ML 3ML SQ SCH (23:30)
[2019-04-02] MEDS ORDERED: HEPARIN 100 UNIT/ML 5ML FLUSH FLUSH PRN (00:19)
[2019-04-02] MEDS: INSULIN ASPART 100 UNITS/ML 3 ML PEN SC SCH ×5 (03:51→20:26)
[2019-04-02 04:40] LABS: Hemoglobin 11.4 g/dL (14.0-18.0); Immature Granulocytes # (auto) 0.02 K/uL (0.00-0.02); Immature Granulocytes % (auto) 0.2 %; Lymphocytes # (auto) 1.04 K/uL (1.2-3.4); Lymphocytes % (auto) 10.7 %; Mean Corpuscular Hemoglobin 31.6 pg (25-34); Mean Corpuscular Hgb Conc 32.6 g/dL (32-36); Mean Platelet Volume 10.3 fL (7.4-10.4); Monocytes # (auto) 0.17 K/uL (0.11-0.59); Monocytes % (auto) 1.8 %; Neutrophils # (auto) 8.45 K/uL (1.4-6.5); Neutrophils % (auto) 87.3 %; Platelet Count 166 K/uL (130-400); RDW Coefficient of Variation 17.9 % (11.5-14.5); Red Blood Count 3.61 M/uL (4.7-6.1); White Blood Count 9.68 K/uL (4.8-10.8)
[2019-04-02 05:03] LABS: Albumin Level 2.3 gm/dl (3.4-5.0); Calcium 8.3 mg/dl (8.5-10.1); Creatinine Clr Calc Pharmacy 103.6 ml/min; Est GFR (Non-African American) 91.5; Magnesium 2.2 mg/dl (1.8-2.4); Potassium 4.4 mmol/L (3.5-5.1)
[2019-04-02 05:14] LABS: Albumin Globulin Ratio 0.8 (0.9-2); Bilirubin,Total 0.5 mg/dl (0.2-1); Thyroid Stimulating Hormone 0.518 uIu/ml (0.300-4.500); Total Protein 5.3 gm/dl (6.4-8.2); Troponin I 0.021 ng/ml (0-0.045)
[2019-04-02] MEDS: FUROSEMIDE 40 MG TAB PO SCH (08:29)
[2019-04-02] MEDS: carvediloL 12.5 MG TAB PO SCH ×2 (08:29→20:25)
[2019-04-02] MEDS: CHOLESTYRAMINE LIGHT 4 GM PKT PO SCH ×2 (08:29→20:27)
[2019-04-02] MEDS: FOLIC ACID 400 MCG TAB PO SCH (08:29)
[2019-04-02] MEDS: OMEGA-3 (PURIFIED FISH OIL) 1 GM CAP PO SCH (08:29)
[2019-04-02] MEDS: FERROUS SULFATE 325 MG TAB PO SCH ×3 (08:30→18:33)
[2019-04-02] MEDS: SACUBITRIL-VALSARTAN 24-26 MG TAB PO SCH ×2 (08:30→20:25)
[2019-04-02] MEDS: MULTIVITAMIN TAB PO SCH (08:30)
[2019-04-02] MEDS: POTASSIUM CHLORIDE 20 MEQ TABCR PO SCH (08:30)
[2019-04-02] MEDS: predniSONE 20 MG TAB PO SCH (08:30)
[2019-04-02] MEDS: PANTOprazole 40 MG TAB PO SCH (08:30)
[2019-04-02] MEDS: SPIRONOLACTONE 25 MG TAB PO SCH (08:31)
[2019-04-02] MEDS: ASCORBIC ACID 500 MG TAB PO SCH (08:31)
[2019-04-02] MEDS: ASPIRIN 81 MG ECTAB PO SCH (08:31)
--- NOTE | 2019-04-02 11:07 | Pharmacy Report ---
Glycemic Control Consultation - Date of Service April 02, 2019 - Scope Scope: Glycemic Pharmacist consulted by Dr Miller on 04/01/19 for glycemic control and to write orders per [facility] inpatient glycemic control protocol - Objective Weight: 97.6 kg Accuchecks BSG (last 24hrs): 04/01/19 04/01/19 04/01/19 15:55 16:13 22:20 Glucose 202 H 163 H POC Glucose POC Glucose (other) 205 H 04/01/19 04/01/19 04/02/19 22:41 23:59 03:49 Glucose POC Glucose 181 H 154 H 135 H POC Glucose (other) 04/02/19 04/02/19 04:12 08:38 Glucose 121 H POC Glucose 117 H POC Glucose (other) Laboratory Data (last 24hrs): 04/01/19 04/01/19 04/02/19 15:55 22:20 04:12 Potassium 3.7 4.3 D 4.4 Carbon Dioxide 28 31 30 Anion Gap 8.0 5.0 6.0 Creatinine 1.06 0.97 0.78 Est Cr Clr Drug Dosing 84.3 83.3 103.6 HbA1c: 7.6% 01/24/19 - Recent Pertinent Medications Outpatient Anti-diabetic Regimen: * Detemir 10 units SQ HS * pt also takes prednisone 10mg PO daily as an outpatient Risk Factors for Insulin Resistance: * Steroids * Diet - Assessment & Plan Assessment & Plan: ASSESSMENT: * 69yo T2DM male with adequate outpatient control per recent A1c * Pt is maintained on SQ basal insulin monotherapy as an outpatient * May need to distribute regimen 50% basal : 50% prandial to prevent hypoglycemia while NPO * Will add low stress/weight based bolus insulin scale and titrate based on BSG trends * Pt currently NPO- pt received full outpatient dose of 10 units detemir last evening. May need to reduce dosing for NPO PLAN FOR INPATIENT GLYCEMIC CONTROL: * Basal insulin * Detemir 8-10 units SQ HS * (8 units for NPO, 10 units for full diet) * Bolus insulin * NovoLog per scale ACHS or Q6hrs while NPO * Goal Range: Low 110 mg/dL - High 140 mg/dL * Correction Factor: 30 mg/dL/unit * Nutritional / Prandial insulin per carb ratio of 1 unit per 10 grams CHO consumed * Please note that the plan above was derived based on current level of insulin resistance and hospital stress. These recommendations are appropriate for inpatient admission only. Plan of care upon discharge will need to be reassessed to avoid potential outpatient hypo/hyperglycemia. Thank you.
--- NOTE | 2019-04-02 12:57 | Hospitalist Progress Note ---
Date of Service April 02, 2019 Assessment & Plan (1) Fall: Fell on 04/01 in the evening with fracture of his right rib and nasal bone and nasal septal fractures. Unclear cause. ICD interrogated and no episode of VT/VF. Troponins negative and echo is largely stable from priors (though EF is lower), so cardiac cause is unlikely. No report of shaking, confusion, and no focal neurologic signs by the morning of 04/02, making a seizure or CVA unlikely as well, despite having a history of both. - Likely orthostatic or vasovagal syncope - He is on many medications that could lower his BP and cause an episode like this. Given his many comorbidities it may be impossible to determine what ring ppened. - He does also have positive benzo screen and script for oxycodone, so could also have been a mechanical fall with some loss of memory from a concussion. - PT/OT - Conservative care of fractures (2) UTI (urinary tract infection): Presumed urinary tract infection with turbid appearance of urine 1+ positive blood, 3+ positive leukocyte esterase over 30 WBC. - Continue ceftriaxone - Follow urine culture from 04/01 (3) Closed fracture of seven ribs of right side: Seen on CT chest on 04/01. - Continue pain management. (4) Fracture of nasal bone: Nondisplaced nasal bone fracture as well as a nasal septal fracture. - Observe for epistaxis. - Pain management (5) ICD (implantable cardioverter-defibrillator) in place: Patient has non-ischemic cardiomyopathy. Echo on 04/02/2019 showed EF 20- 25%. - Continue Coreg, statin, ASA, Entresto, and spironolactone - Monitor for volume overload. (6) CVA (cerebral vascular accident): Patient is a on Keppra, presumably for seizures due to previous CVA. - Continue ASA, Keppra (7) Rectal adenocarcinoma: Diagnosed earlier in 2019. Patient is status post radiation therapy and currently on chemotherapy. - Track chronic diarrhea (8) HLD (hyperlipidemia): - Continue statin (9) Afib: Permanent afib. Patient is not on anticoagulation due to previous rectal bleeding colon cancer. - Continue carvedilol (10) H/O aortic valve replacement: Bioprosthetic aortic valve replaced in 2010. - Normal gradients on echo on 04/02. - No inpatient needs. (11) Sleep apnea: Patient knows that he has obstructive sleep apnea but he does not use a CPAP. - Given nasal fractures, will defer at this time (12) DVT prophylaxis: SCDs - Early ambulation. Hold chemoprophylaxis for rectal cancer bleeding. Subjective Feels totally fine this morning. He has no recollection of the events preceeding his fall. He basically remembers dinner yesterday, then being in the hospital. Review of Systems Review of Systems: All systems reviewed & are unremarkable except as noted in HPI & below Physical Exam Constitutional: WD/WN, vitals as above Eyes: EOM intact bilaterally; no conjunctival abnormality ENMT: external ear and nose normal, oropharynx normal Neck: trachea midline, no thyromegaly normal visual inspection Respiratory: normal respiratory effort, lungs clear to auscultation no respiratory distress Cardiovascular: RRR, no murmur, no edema Gastrointestinal (Abdomen): Inspection/Auscultation: abdomen normal to inspection; abdomen not distended Musculoskeletal: no cyanosis or clubbing, extremities motor strength 5/5 Skin: no rashes, warm and dry Neurologic: moves all extremities and awake Psychiatric: Orientation: alert, oriented to person and cooperative Results & Data Vital Signs (Past 12 Hours) Vital Signs Temp Pulse Resp BP Pulse Ox 04/02/19 10:52 78 14 111/72 96 04/02/19 08:51 71 107/69 04/02/19 07:04 36.5 C 70 14 92/59 L 98 04/02/19 03:05 36.5 C 67 16 106/69 100 PG Care Time/CCT Total # of Minutes Spent Total Time Spent with Patient: Total time spent is greater than 50% in coordination of care (as documented) at patient's floor/unit and/or counseling patient: (1) Closed fracture of seven ribs of right side Encounter type: initial encounter Qualified Code(s): S22.41XA - Multiple fra ctures of ribs, right side, initial encounter for closed fracture (2) Fracture of nasal bone Encounter type: initial encounter Fracture type: closed Qualified Code(s): S02.2XXA - Fracture of nasal bones, initial encounter for closed fracture (3) UTI (urinary tract infection) Hematuria presence: without hematuria Urinary tract infection type: site unspecified Qualified Code(s): N39.0 - Urinary tract infection, site not specified (4) HLD (hyperlipidemia) Hyperlipidemia type: mixed hyperlipidemia Qualified Code(s): E78.2 - Mixed hyperlipidemia (5) CVA (cerebral vascular accident) CVA mechanism: embolism Precerebral and cerebral artery: middle cerebral artery Laterality of affected vessel: left Qualified Code(s): I63.412 - Cerebral infarction due to embolism of left middle cerebral artery (6) Afib Atrial fibrillation type: chronic Qualified Code(s): I48.2 - Chronic atrial fibrillation (7) Fall Encounter type: initial encounter Qualified Code(s): W19.XXXA - Unspecified fall, initial encounter
[2019-04-02] MEDS: ATORVASTATIN 20 MG TAB PO SCH (20:25)
[2019-04-02] MEDS: TAMSULOSIN HCL 0.4 MG CAP PO SCH (20:27)
[2019-04-02] MEDS ORDERED: INSULIN DETEMIR FLEXPEN/FLEX TOUCH 100 UNITS/ML 3ML SQ SCH (21:00)
[2019-04-02] MEDS: cefTRIAXone SODIUM 2,000 MG in DEXTROSE 5% 50 ML IV SCH (22:52)
[2019-04-03] MEDS: OXYCODONE/APAP 7.5/325MG TAB PO PRN ×2 (00:40→09:28)
[2019-04-03] MEDS: INSULIN ASPART 100 UNITS/ML 3 ML PEN SC SCH ×4 (00:41→11:50)
[2019-04-03 06:39] LABS: Eosinophils # (auto) 0.02 K/uL (0-0.5); Eosinophils % (auto) 0.2 %; Hematocrit (blood only) 35.1 % (42-52); Hemoglobin 11.9 g/dL (14.0-18.0); Immature Granulocytes # (auto) 0.02 K/uL (0.00-0.02); Immature Granulocytes % (auto) 0.2 %; Lymphocytes # (auto) 1.12 K/uL (1.2-3.4); Mean Corpuscular Hemoglobin 33.1 pg (25-34); Mean Corpuscular Hgb Conc 33.9 g/dL (32-36); Mean Corpuscular Volume 97.5 fL (80-100); Mean Platelet Volume 10.3 fL (7.4-10.4); Monocytes # (auto) 0.17 K/uL (0.11-0.59); Neutrophils # (auto) 7.31 K/uL (1.4-6.5); Neutrophils % (auto) 84.6 %; Platelet Count 146 K/uL (130-400); RDW Coefficient of Variation 17.9 % (11.5-14.5); White Blood Count 8.64 K/uL (4.8-10.8)
[2019-04-03 07:16] LABS: Albumin Level 2.5 gm/dl (3.4-5.0); BUN Creatinine Ratio 15.8 (10-20); Calcium 9.1 mg/dl (8.5-10.1); Creatinine Clr Calc Pharmacy 86.2 ml/min; Est GFR (African American) 96.1; Est GFR (Non-African American) 82.9; Potassium 4.3 mmol/L (3.5-5.1)
[2019-04-03 07:19] LABS: Albumin Globulin Ratio 0.8 (0.9-2); Bilirubin,Total 0.4 mg/dl (0.2-1); Globulin 3.1 gm/dl (2.5-4.0); Total Protein 5.6 gm/dl (6.4-8.2)
[2019-04-03] MEDS: SPIRONOLACTONE 25 MG TAB PO SCH (09:23)
[2019-04-03] MEDS: FOLIC ACID 400 MCG TAB PO SCH (09:23)
[2019-04-03] MEDS: SACUBITRIL-VALSARTAN 24-26 MG TAB PO SCH (09:23)
[2019-04-03] MEDS: predniSONE 20 MG TAB PO SCH (09:23)
[2019-04-03] MEDS: CHOLESTYRAMINE LIGHT 4 GM PKT PO SCH (09:23)
[2019-04-03] MEDS: ASCORBIC ACID 500 MG TAB PO SCH (09:24)
[2019-04-03] MEDS: MULTIVITAMIN TAB PO SCH (09:24)
[2019-04-03] MEDS: ASPIRIN 81 MG ECTAB PO SCH (09:24)
[2019-04-03] MEDS: POTASSIUM CHLORIDE 20 MEQ TABCR PO SCH (09:24)
[2019-04-03] MEDS: PANTOprazole 40 MG TAB PO SCH (09:24)
[2019-04-03] MEDS: FUROSEMIDE 40 MG TAB PO SCH (09:24)
[2019-04-03] MEDS: FERROUS SULFATE 325 MG TAB PO SCH ×2 (09:24→14:34)
[2019-04-03] MEDS: OMEGA-3 (PURIFIED FISH OIL) 1 GM CAP PO SCH (09:24)
--- NOTE | 2019-04-03 10:56 | Pharmacy Report ---
Pharmacy Glycemic Short Note 2 - Date of Service April 03, 2019 - Glycemic Short BSG Results (Last 24 hours): 04/02/19 04/02/19 04/02/19 12:18 16:27 20:09 Glucose POC Glucose 144 H 197 H 164 H 04/03/19 04/03/19 04/03/19 00:41 04:08 06:28 Glucose 100 H POC Glucose 103 H 98 04/03/19 07:29 Glucose POC Glucose 109 H OUTPATIENT ANTIDIABETIC REGIMEN: * Detemir 10 units SQ HS * pt also takes prednisone 10mg PO daily as an outpatient ASSESSMENT: * 69yo T2DM male with adequate outpatient control per recent A1c * Pt is maintained on SQ basal insulin monotherapy as an outpatient * Lowered basal insulin dose to help distribute regimen 50% basal : 50% prandial to prevent hypoglycemia while NPO * Added low stress/weight based bolus insulin scale and titrate based on BSG trends * Pt received 24 units of insulin over the past 24hrs * 8 units of Lantus * 16 units of NovoLog * BSGs ranging 98-197 mg/dl * AM fasting BSG = 109mg/dl. Slightly below goal range for inpatient targets. Will lower slightly * Post-prandials in range, one elevated pre-dinner but otherwise in range. No changes needed PLAN FOR INPATIENT GLYCEMIC CONTROL: * Basal insulin: decrease * Lantus 7 units SQ HS * Bolus insulin: no change * NovoLog per scale ACHS or Q6hrs while NPO * Goal Range: Low 11 mg/dL - High 140 mg/dL * Correction Factor: 25 mg/dL/unit * Nutritional / Prandial insulin per carb ratio of 1 unit per 8 grams CHO consumed
[2019-04-03] MEDS ORDERED: METOPROLOL SUCC 25MG EXT REL TAB PO SCH (11:30)
--- NOTE | 2019-04-03 14:12 | Discharge Summary ---
Date of Service April 03, 2019 Admission HPI Per Admitting Provider Patient is a 69 years old male with past medical history of colon cancer status post radiation and currently on chemotherapy, chronic diarrhea, aortic valve replacement, chronic systolic CHF with ejection fraction of of 30 to 35%, nonischemic cardiomyopathy , history of recurrent episodes of syncope and ventricular tachycardia status post ICD placement on January 25, 2019, A. fib, diabetes mellitus type 2, BPH, hyperlipidemia, GERD, and left MCA territory CVA who presents to the emergency room for passing out in the bathroom today. The patient family states that the patient was normal this morning then they heard a yell and a crash while he was in the bathroom. The family called 911 immediately after the fall.Per EMS the patient was found unresponsive, tachycardic, and with epistaxis on the floor of the bathroom. EMS reports that they were called for cardiac arrest, stating that the patient became more responsive on the way to the hospital. Per EMS the patient was agitated and he has a left lower extremity deformity. EMS stated that patient received 2 mg of IM Ativan. Patient was had to put in four-point wrist restraint because of his agitation. Patient has a pacemaker/defibrillator. In the emergency room patient received magnesium sulfate 1 g in addition, 1 L of normal saline, 1 dose of Zosyn 4.5 g, and midazolam 10 mg for agitation. [employer] inventory representative interrogated patient pacemaker defibrillator and he noted one episode of rapid rhythm. Labs are reviewed: WBC 12.98, hemoglobin 12.2, hematocrit 36.2 platelets 192, PT 10.9, INR 1.1, 8 PTT 22. Sodium 135, potassium 3.7, chloride 99, BUN 17, creatinine 1.06, GFR 70.8, 2.3, AST 23, ALT 14, troponin 0 0.018, C- reactive protein 3.24, total protein 6, procalcitonin 0.05. Troponin pending BNP pending. Urine positive for blood, for 3+ leukocyte esterase, 4+ bacteria. CT of the cervical spine shows: No fracture with in the cervical spine. Chest CT shows acute right anterior seventh rib fracture. No pneumothorax. Trace right pleural effusion. Stable 7 mm sclerotic foci within the right scapula tip. This is indeterminate but favors a begin bone island. No evidence of metastatic disease within the chest. Chest x-rays shows mild cardiomegaly and low lung volumes. The tip of the left subclavian port a catheter terminates at the right brachiocephalic SVC junction. X-rays of the left femur shows no acute fracture or dislocation identified. Advanced osteoarthritic changes involving the left knee. Left knee joint effusion. The of the head shows no acute intracranial abnormality. The nasal bone and nasal septal fractures. Left knee x-ray show no acute fracture. Advanced osteoarthritic changes. Joint effusion. Abdomen pelvis CT shows no evidence of acute intra-abdominal or pelvic injury. Persistent rectal wall thickening. Neoplasm cannot be excluded. Fat-containing left internal hernia. Bladder wall thickening. Decision was made to admit patient to PCU on telemetry for sepsis, urinary tract infection, syncope, hypotension, for further management and treatment. Principal Diagnosis Syncope & fall Discharge Exam Constitutional WD/WN, vitals as above Eyes EOM intact bilaterally; no conjunctival abnormality ENMT external ear and nose normal, oropharynx normal Neck trachea midline, no thyromegaly normal visual inspection Respiratory normal respiratory effort, lungs clear to auscultation no respiratory distress Cardiovascular RRR, no murmur, no edema Gastrointestinal (Abdomen) Inspection/Auscultation: abdomen normal to inspection; abdomen not distended Musculoskeletal no cyanosis or clubbing, extremities motor strength 5/5 Skin no rashes, warm and dry Neurologic moves all extremities and awake Psychiatric Orientation: alert, oriented to person and cooperative Discharge Data Allergies Allergy/AdvReac Type Severity Reaction Status Date / Time No Known Allergies Allergy Verified 04/01/19 17:03 Consultations 04/01/19 17:40 ED Decision to Admit Stat 04/01/19 21:54 Consult Refractory Manager Routine Ordered Studies 04/01/19 15:49 CT abd pelvis IV con only Stat CT cervical spine wo con Stat CT chest w con Stat CT head/brain wo con Stat Hospital Course (1) Fall: Fell on 04/01 in the evening with fracture of his right rib and nasal bone and nasal septal fractures. Unclear cause. ICD interrogated and no episode of VT/VF. Troponins were negative, and echo was largely stable from priors (though EF is lower), so cardiac cause is unlikely. No report of shaking, confusion, and no focal neurologic signs by the morning of 04/02, making a seizure or CVA unlikely as well, despite having a history of both. - Likely iatrogenic hypotension - His BP went as low as 80/50 overnight. HR álvaro ined low-normal at 50-70, but did appropriately rise with exertion. - He is on many medications that could lower his BP and cause an episode like this. Given his many comorbidities it may be impossible to determine what happened. - Discussed with cardiology - Switched carvedilol to Toprol to reduce BP effect. Lowered Lasix to 20 mg until follow up with Victoria Gutierres in clinic soon. - Conservative care of fractures (2) UTI (urinary tract infection): Presumed urinary tract infection with turbid appearance of urine 1+ positive blood, 3+ positive leukocyte esterase over 30 WBC. Culture grew oseguera- sensitive E. coli. Few symptoms. - Continued ceftriaxone inpatient - Discharged on cefdinir x 5 more days for a total 7-day treatment course. (3) Closed fracture of seven ribs of right side: Seen on CT chest on 04/01. - Continue pain management. - Discharged with lidocaine patches. (4) Fracture of nasal bone: Nondisplaced nasal bone fracture as well as a nasal septal fracture. - Observe for epistaxis - None - ENT follow up if needed, but likely conservative care. (5) ICD (implantable cardioverter-defibrillator) in place: Patient has non-ischemic cardiomyopathy. Echo on 04/02/2019 showed EF 20- 25%. - Continue beta-penny, statin, ASA, Entresto, and spironolactone - No signs of volume overload - Stayed net even overall. Weight was 96.6 kg and was actually mildly lower than priors. - Changed to Toprol XL and lowered Lasix dose temporarily on discharge. (6) CVA (cerebral vascular accident): Patient is a on Keppra, presumably for seizures due to previous CVA. - Continue ASA, Keppra (7) Rectal adenocarcinoma: Diagnosed earlier in 2019. Patient is status post radiation therapy and currently on chemotherapy. - Track chronic diarrhea (8) HLD (hyperlipidemia): - Continue statin (9) Afib: Permanent afib. Patient is not on anticoagulation due to previous rectal bleeding colon cancer. - Continue beta-penny - HR was actually low-normal; however, his ICD will pace if he gets down to 40 which he did not. (10) H/O aortic valve replacement: Bioprosthetic aortic valve replaced in 2010. - Normal gradients on echo on 04/02. - No inpatient needs. (11) Sleep apnea: Patient knows that he has obstructive sleep apnea but he does not use a CPAP. - Given nasal fractures, will defer at this time (12) DVT prophylaxis: SCDs - Early ambulation. Hold chemoprophylaxis for rectal cancer bleeding. Total Time Total Time Spent Total Time Spent (In Minutes): 35 Total Time Includes: Examination of the Patient and Communication With Other Providers Discharge Plan Discharge Items Patient Disposition: Home - Self-Care Reason For Visit: SYNCOPE Discharge Diagnosis: Loss of consciousness and fall UTI Activity: Resume your previous activity Non-emergency contact: Primary Care Provider and Sow Manager Call non-emergency contact if: your symptoms worsen and your temperature is above 101 Follow-up/Referrals: Erika Negro [Primary Care Provider] - Victoria Gutierres PA-C [[employer] Despatch [employer]] - (Please see Victoria Gutierres in 1 week for Heart Failure check-up.) Diet: Carb Consistent or DM2 and Heart Healthy Addtl Attending Provider Instructions: Mr. Price, You had a fall at home after losing consciousness. We think this was due to low blood pressure from your heart failure medications. We have switched one medication. It is a slight change, but will hopefully help your blood pressure stay up a bit higher and prevent future fainting and falls. You did break a rib and your nose from this fall. If you have any stuffy nose, nose bleeding, or other issues, please follow up with an ENT doctor. Please use the lidocaine patch on the most painful area of your ribs. You can use one patch each day. Lastly, we found that you had a mild UTI. We gave you 2 doses of IV antibiotics. Please take antibiotics for the next 5 days. This may have contributed to your fall, but it's not entirely clear. Please follow up with you PCP shortly after finishing the antibiotics to be sure you are feeling better. Pending Studies at Discharge: No Stand-Alone Forms: My [facility] Apptimate Medications and DC Order Prescriptions: New metoprolol succinate 25 mg Tablet Extended Release 24 Hr 25 mg PO QAM Qty: 30 RF: 0 lidocaine 5 % adhesive patch,medicated 1 patch TOP DAILY Qty: 30 RF: 0 cefdinir 300 mg capsule 300 mg PO BID 5 Days Qty: 10 RF: 0 Continued Entresto 24-26 mg tablet 1 tab PO BID RF: 0 atorvastatin 20 mg tablet 20 mg PO HS RF: 0 folic acid 400 mcg Tablet 400 mcg PO QAM RF: 0 aspirin [Aspirin Low Dose] 81 mg Tablet,Delayed Release (Dr/Ec) 81 mg PO QAM RF: 0 spironolactone 25 mg Tablet 25 mg PO QAM RF: 0 Levemir U-100 Insulin 100 unit/mL Solution 10 unit SUBCUT HS RF: 0 amoxicillin 500 mg tablet 2,000 mg PO ONCE PRN (Reason: BEFORE DENTAL PROCEDURE) RF: 0 ascorbic acid (vitamin C) [Vitamin C] 500 mg Tablet 500 mg PO QAM RF: 0 tamsulosin [Flomax] 0.4 mg capsule 0.4 mg PO QPM RF: 0 omeprazole 20 mg Tablet,Delayed Release (Dr/Ec) 20 mg PO QAM RF: 0 omega 2-lbg-yfi-fish oil [Fish Oil] 1,000 mg (120 mg-180 mg) Capsule 1 cap PO QAM RF: 0 Cholestyramine Light 4 gram Powder In Packet 4 g PO BID@1000,2200 Qty: 60 RF: 0 potassium chloride [Klor-Con M20] 20 mEq tablet,ER particles/crystals 20 meq PO DAILY RF: 0 ferrous sulfate 325 mg (65 mg iron) tablet 325 mg PO TID RF: 0 diclofenac sodium [Voltaren] 1 % gel 1 gm topical QID PRN (Reason: Pain) RF: 0 multivitamin Tablet 1 tab PO DAILY RF: 0 prednisone 5 mg tablet 20 mg PO QAM RF: 0 oxycodone-acetaminophen 7.5-325 mg tablet 1 tab PO Q6H PRN (Reason: Pain) RF: 0 furosemide [Lasix] 40 mg tablet 40 mg PO QAM RF: 0 Discontinued carvedilol 12.5 mg tablet 12.5 mg PO BID Qty: 60 RF: 0 ibuprofen 200 mg tablet 600 mg PO Q8H PRN (Reason: Pain) RF: 0 Discharge Orders: Discharge Order (Routine); Ordered 04/03/19 Ordered By: Shlomo Riley Admission Data Admit Date/Time: 04/01/19 20:45 Attending Provider: Shlomo Riley Admit Provider: Padmini Miller Primary Care Provider: Erika Negro Other Providers: Felix Oneill ; Shlomo Riley
[2019-04-03 15:26] VITALS: PULSE 65; TEMP 97.9; O2SAT 97
[2019-04-03 15:51] VITALS: BP 111/59
[2019-04-03] MEDS ORDERED: CEFDINIR 300 MG CAP PO PRN (16:20)
[2019-04-03] MEDS ORDERED: CEFDINIR 300 MG CAP PO SCH (16:21)
[2019-04-03] MEDS ORDERED: INSULIN DETEMIR FLEXPEN/FLEX TOUCH 100 UNITS/ML 3ML SQ SCH (21:00)
[2019-04-04] MEDS ORDERED: METOPROLOL SUCC 25MG EXT REL TAB PO SCH (09:00)
[2019-04-04 10:01] LABS: 7-Aminoclonaz, Confirm NEGATIVE NG/ML (CUTOFF=25); Hydro-Alp Ur, GC/MS NEGATIVE NG/ML (CUTOFF=25); Hydroxyethylflurazepam, Conf NEGATIVE NG/ML (CUTOFF=50); Hydroxytriazolam NEGATIVE NG/ML (CUTOFF=50); Lorazepam, Ur GC/MS 105 NG/ML (CUTOFF=50); Nordiazepam, Confirm NEGATIVE NG/ML (CUTOFF=50); Oxazepam Ur, GC/MS NEGATIVE NG/ML (CUTOFF=50); Temazepam, Confirm NEGATIVE NG/ML (CUTOFF=50)
--- NOTE | 2019-04-05 14:34 | Critical Care Consultation ---
Date of Consultation April 05, 2019 History of Present Illness Attending Physician: Shlomo Riley MD History of Present Illness Patient came to the emergency department and found to be septic. Consult was placed for intensive care. Patient was then seen by the hospitalist and was decided the patient be managed in PCU telemetry. Consult was to be canceled but was not canceled prior to the admitting physician departing for her shift. Please note that this patient was not seen and orders were not placed for this patient due to communication between providers a consult will be canceled. Please do not bill the patient for this consult has no service was provided by intensive care. Allergies Allergy/AdvReac Type Severity Reaction Status Date / Time No Known Allergies Allergy Verified 04/01/19 17:03 Patient History Medical History Sleep apnea (Chronic) Aortic stenosis Nonischemic cardiomyopathy CVA (cerebral vascular accident) 08/11/18 HLD (hyperlipidemia) HTN (hypertension) DM type 2 (diabetes mellitus, type 2) Seizure "SMALL SEIZURE AT TIME OF CVA 07/2018" Kidney disease (Chronic) AAA (abdominal aortic aneurysm) NEW FINDING Anemia Atrial fibrillation BPH (benign prostatic hyperplasia) Cancer COLON CANCER (NEW DX) RADIATION JUST COMPLETED Chronic systolic (congestive) heart failure Colon cancer Congestive heart failure GERD (gastroesophageal reflux disease) Osteoarthritis Sleep apnea Surgical History H/O aortic valve replacement (Chronic) 2010 AT [facility] Port-A-Cath in place (Chronic) H/O knee surgery RT/LEFT History of cardiac cath 2010 History of colonoscopy History of tooth extraction Family History Brother Family history of diabetes mellitus Mother Colon cancer Father Coronary heart disease Hypertension Sister Hypertension Grandmother Diabetes Social History Preferred Language: Korean Communication Ability: Effective Inspector Assembly Required: No Beliefs That Will Affect Care: Worship Worship Beliefs: Jehovah Witness marital status: Current Living Situation: Family Current Living Situation Comment: brother, sister in law, sister Feels Safe at Home: Yes Smoking Status: Former smoker Tobacco Type: cigarettes ; Age Quit Using Tobacco: 48 ; Cigarettes Per Day: 5 ; Second Hand Exposure: No ; Hx Alcohol Use: No Hx Substance Use: No PG Care Time/CCT Total # of Minutes Spent Total Time Spent with Patient: Total time spent is greater than 50% in coordination of care (as documented) at patient's floor/unit and/or counseling patient:
== END 2019-04-03 16:40 | disposition home or self-care (01) | DRG 184 ==
LOC: ED 15:43 → SUATTDRO 20:45 → 2E 20:45

== ENCOUNTER 2019-05-14 00:59 | Inpatient (IN) ==
[2019-05-14 01:56] LABS: Hematocrit (blood only) 37.2 % (42-52); Hemoglobin 12.5 g/dL (14.0-18.0); Mean Corpuscular Hemoglobin 32.6 pg (25-34); Mean Corpuscular Hgb Conc 33.6 g/dL (32-36); Mean Corpuscular Volume 96.9 fL (80-100); Mean Platelet Volume 10.7 fL (7.4-10.4); Platelet Count 113 K/uL (130-400); RDW Coefficient of Variation 16.5 % (11.5-14.5); Red Blood Count 3.84 M/uL (4.7-6.1); White Blood Count 3.21 K/uL (4.8-10.8)
[2019-05-14 02:11] LABS: INR 1.2 (0.9-1.1); Partial Thromboplastin Ratio 0.8; Prothrombin Time 12.4 Seconds (9.0-12.0)
[2019-05-14 02:13] LABS: BUN Creatinine Ratio 18.8 (10-20); Blood Urea Nitrogen 23 mg/dl (7-18); Calcium 9.1 mg/dl (8.5-10.1); Carbon Dioxide 25 mmol/L (21-32); Chloride 97 mmol/L (98-107); Est GFR (African American) 68.5; Est GFR (Non-African American) 59.1; Glucose 200 mg/dl (70-99); Potassium 4.5 mmol/L (3.5-5.1); Sodium 133 mmol/L (136-145)
[2019-05-14 02:17] LABS: Troponin I 0.025 ng/ml (0-0.045)
[2019-05-14 03:05] LABS: Eosinophils # (auto) 0.01 K/uL (0-0.5); Eosinophils % (auto) 0.3 %; Immature Granulocytes # (auto) 0.04 K/uL (0.00-0.02); Immature Granulocytes % (auto) 1.2 %; Lymphocytes # (auto) 0.31 K/uL (1.2-3.4); Lymphocytes % (auto) 9.7 %; Monocytes # (auto) 0.08 K/uL (0.11-0.59); Monocytes % (auto) 2.5 %; Neutrophils # (auto) 2.77 K/uL (1.4-6.5); Neutrophils % (auto) 86.3 %
[2019-05-14] MEDS: SODIUM CHLORIDE 0.9% 1000ML 1,000 ML IV SCH ×2 (04:39→22:11)
--- NOTE | 2019-05-14 06:02 | History & Physical Report ---
Date of Service May 14, 2019 Assessment & Plan (1) Unresponsive state: Patient will be admitted to medical telemetry. CT head was negative for acute event but does show a previous left parietal CVA. Unable to do MRI due to presence of pacer. ICD is MRI compatible, but this would need to be addressed in the morning when the chain sales representative could be available. Depending upon how patient does overnight, EEG can be ordered in morning as well to assess for possible seizure activity. At this time patient is resting comfortably, without any purposeful activity. Discussed with family members who are in attendance, and they are comfortable with current plan. Patient is not comfort measures at this time, but may be can move to comfort measures after the evening. Consult neurology to see patient in a.m. Present on Admission?: Yes History of Present Illness Chief Complaint: Patient was brought to the emergency department after development of an acute unresponsive state prior to arrival. Primary Care Provider: Erika Negro The patient is a 69-year-old male with a past medical history including rectal adenocarcinoma status post radiation and currently on chemotherapy, chronic diarrhea, aortic valve replacement, chronic systolic heart failure with ejection fraction of 30 to 35%, nonischemic cardia myopathy, recurrent syncope, ventricular tachycardia status post ICD placement on 01/25/2019, atrial fibrillation, diabetes mellitus type 2, BPH, hyperlipidemia, GERD and left MCA territory CVA. He was most recently admitted to [facility] from 04/01-04/03 for a syncopal episode while in the bathroom. He presents to the emergency department today with an unresponsive state, presumptively related to CVA and/ or postictal state. Allergies Allergy/AdvReac Type Severity Reaction Status Date / Time No Known Allergies Allergy Verified 05/14/19 01:22 Home Medications Home Medications Medication Instructions Recorded Confirmed Type aspirin [Aspirin Low Dose] 81 mg PO QAM 08/11/18 05/14/19 History folic acid 400 mcg PO QAM 08/11/18 05/14/19 History spironolactone 25 mg PO QAM 08/11/18 05/14/19 History ascorbic acid (vitamin C) [Vitamin 500 mg PO QAM 09/07/18 05/14/19 History C] omega 1-pwt-elc-fish oil [Fish Oil] 1 cap PO QAM 09/07/18 05/14/19 History omeprazole 20 mg PO QAM 09/07/18 05/14/19 History tamsulosin [Flomax] 0.4 mg PO QPM 09/07/18 05/14/19 History Levemir U-100 Insulin 10 unit SUBCUT HS 11/16/18 05/14/19 History Cholestyramine Light 4 g PO BID@1000,2200 #60 ea 01/26/19 05/14/19 Rx amoxicillin 500 mg tablet 2,000 mg PO ONCE PRN tab 02/04/19 05/14/19 History atorvastatin 20 mg tablet 20 mg PO HS 03/03/19 05/14/19 History diclofenac sodium [Voltaren] 1 gm TOPICAL QID PRN 04/01/19 05/14/19 History ferrous sulfate 325 mg PO TID 04/01/19 05/14/19 History multivitamin 1 tab PO DAILY 04/01/19 05/14/19 History oxycodone-acetaminophen 1 tab PO Q6H PRN 04/01/19 05/14/19 History potassium chloride [Klor-Con M20] 20 meq PO DAILY 04/01/19 05/14/19 History prednisone 20 mg PO QAM 04/01/19 05/14/19 History furosemide [Lasix] 20 mg PO QAM #0 tab 04/03/19 05/14/19 Rx lidocaine 1 patch TOP DAILY #30 ea 04/03/19 05/14/19 Rx metoprolol succinate 25 mg 25 mg PO QAM #90 tab 05/04/19 05/14/19 Rx tablet,extended release 24 hr docusate sodium [Stool Softener] 500 mg PO BID 05/14/19 05/14/19 History morphine 15 mg PO TID PRN 05/14/19 05/14/19 History Past Med/Surg History Medical History AAA (abdominal aortic aneurysm) NEW FINDING Anemia Aortic stenosis Atrial fibrillation BPH (benign prostatic hyperplasia) Cancer COLON CANCER (NEW DX) RADIATION JUST COMPLETED Chronic systolic (congestive) heart failure Colon cancer Congestive heart failure CVA (cerebral vascular accident) 08/11/18 DM type 2 (diabetes mellitus, type 2) GERD (gastroesophageal reflux disease) HLD (hyperlipidemia) HTN (hypertension) Kidney disease (Chronic) Nonischemic cardiomyopathy Osteoarthritis Seizure "SMALL SEIZURE AT TIME OF CVA 07/2018" Sleep apnea Sleep apnea (Chronic) Surgical History H/O aortic valve replacement (Chronic) 2010 AT [facility] IN [place] H/O knee surgery RT/LEFT History of cardiac cath 2010 History of colonoscopy History of tooth extraction Port-A-Cath in place (Chronic) Family History Brother Family history of diabetes mellitus Mother Colon cancer Father Coronary heart disease Hypertension Sister Hypertension Grandmother Diabetes Social History Preferred Language: Urdu Communication Ability: Impaired Cattle Shipper Required: No Beliefs That Will Affect Care: Jewish Jewish Beliefs: baptist marital status: Current Living Situation: Family Current Living Situation Comment: brother, tameka, sister Feels Safe at Home: Yes Smoking Status: Former smoker Tobacco Type: cigarettes ; Age Quit Using Tobacco: 48 ; Cigarettes Per Day: 5 ; Second Hand Exposure: No ; Hx Alcohol Use: No Hx Substance Use: No Review of Systems Review of Systems: Unobtainable due to cognitive status and Unobtainable due to reduced consciousness Physical Exam Physical Exam: The patient is obtunded, blood at the base of his nostrils, lying in bed with nonrebreather mask on, and in no acute distress. HEENT--PERRL, EOMI, mucous membranes and oropharynx dry. Neck--No JVD. No bruits. Thyroid normal, trachea midline, no adenopathy. Heart--normal S1 and S2. No murmurs, rubs or gallops. Lungs--clear bilaterally, no respiratory distress, no accessory muscle use. Abdomen--normal bowel sounds and soft. Nondistended. Extremities--no cyanosis or clubbing. 1+ bilateral pretibial pitting edema. Dermatologic--normal skin turgor, normal color. Neurologic--limited exam Rheumatologic--limited exam Psychiatric--obtunded Results & Data Vital Signs (Past 12 Hours) Vital Signs Temp Pulse Pulse Resp BP BP Pulse Ox 05/14/19 05:15 82 05/14/19 04:33 97.3 F L 95 H 16 148/97 H 97 05/14/19 03:22 95 H 23 117/95 100 05/14/19 02:53 92 H 23 135/92 100 05/14/19 02:06 84 19 115/86 100 05/14/19 01:53 79 21 112/77 100 05/14/19 01:34 92 H 17 111/84 100 05/14/19 01:15 103 H 14 113/70 100 05/14/19 01:03 115 H 103/85 100 Laboratory Results Laboratory Results WBC 3.21 K/uL (4.8-10.8) L 05/14/19 01:41 RBC 3.84 M/uL (4.7-6.1) L 05/14/19 01:41 Hgb 12.5 g/dL (14.0-18.0) L 05/14/19 01:41 Hct 37.2 % (42-52) L 05/14/19 01:41 MCV 96.9 fL (80-100) 05/14/19 01:41 MCH 32.6 pg (25-34) 05/14/19 01:41 MCHC 33.6 g/dL (32-36) 05/14/19 01:41 RDW Std Deviation 58.0 fL (36.4-46.3) H 05/14/19 01:41 RDW Coeff of Amandeep 16.5 % (11.5-14.5) H 05/14/19 01:41 Plt Count 113 K/uL (130-400) L 05/14/19 01:41 MPV 10.7 fL (7.4-10.4) H 05/14/19 01:41 Immature Gran % (Auto) 1.2 % 05/14/19 01:41 Neut % (Auto) 86.3 % 05/14/19 01:41 Lymph % (Auto) 9.7 % 05/14/19 01:41 Bee % (Auto) 2.5 % 05/14/19 01:41 Eos % (Auto) 0.3 % 05/14/19 01:41 Baso % (Auto) 0.0 % 05/14/19 01:41 Immature Gran # (Auto) 0.04 K/uL (0.00-0.02) H 05/14/19 01:41 Neut # (Auto) 2.77 K/uL (1.4-6.5) 05/14/19 01:41 Lymph # (Auto) 0.31 K/uL (1.2-3.4) L 05/14/19 01:41 Bee # (Auto) 0.08 K/uL (0.11-0.59) L 05/14/19 01:41 Eos # (Auto) 0.01 K/uL (0-0.5) 05/14/19 01:41 Baso # (Auto) 0.00 K/uL (0-0.2) 05/14/19 01:41 Absolute Nucleated RBC Cancelled 05/14/19 01:07 Nucleated RBC % (auto) Cancelled 05/14/19 01:07 Neutrophils % (Manual) Cancelled 05/14/19 01:07 Band Neutrophils % Cancelled 05/14/19 01:07 Lymphocytes % (Manual) Cancelled 05/14/19 01:07 Prolymphocyte % Cancelled 05/14/19 01:07 Reactive Lymphs % (Man) Cancelled 05/14/19 01:07 Monocytes % (Manual) Cancelled 05/14/19 01:07 Eosinophils % (Manual) Cancelled 05/14/19 01:07 Basophils % (Manual) Cancelled 05/14/19 01:07 Metamyelocytes % (Man) Cancelled 05/14/19 01:07 Myelocytes % (Man) Cancelled 05/14/19 01:07 Promyelocytes % (Man) Cancelled 05/14/19 01:07 Blast Cells % (Manual) Cancelled 05/14/19 01:07 Plasma Cell % (Manual) Cancelled 05/14/19 01:07 Other Cells % Cancelled 05/14/19 01:07 Nucleated RBC % Cancelled 05/14/19 01:07 Neutrophils # (Manual) Cancelled 05/14/19 01:07 Band Neutrophils # Cancelled 05/14/19 01:07 Total Absolute Neuts Cancelled 05/14/19 01:07 Lymphocytes # (Manual) Cancelled 05/14/19 01:07 Prolymphocyte # Cancelled 05/14/19 01:07 Reactive Lymphs # Cancelled 05/14/19 01:07 Total Abs Lymphocytes Cancelled 05/14/19 01:07 Monocytes # (Manual) Cancelled 05/14/19 01:07 Eosinophils # (Manual) Cancelled 05/14/19 01:07 Basophils # (Manual) Cancelled 05/14/19 01:07 Metamyelocytes # (Man) Cancelled 05/14/19 01:07 Myelocytes # (Manual) Cancelled 05/14/19 01:07 Promyelocytes # (Man) Cancelled 05/14/19 01:07 Blast Cells # (Man) Cancelled 05/14/19 01:07 Plasma Cell # (Manual) Cancelled 05/14/19 01:07 Other Cells # Cancelled 05/14/19 01:07 Nucleated RBCs # (Man) Cancelled 05/14/19 01:07 Hypersegmented Neuts Cancelled 05/14/19 01:07 Hyposegmented Neuts Cancelled 05/14/19 01:07 Hypogranular Neuts Cancelled 05/14/19 01:07 Large Granular Lymphs Cancelled 05/14/19 01:07 # Lrg Granular Lymphs Cancelled 05/14/19 01:07 Hairy Cells Cancelled 05/14/19 01:07 Smudge Cells Cancelled 05/14/19 01:07 Toxic Granulation Cancelled 05/14/19 01:07 Toxic Vacuolation Cancelled 05/14/19 01:07 Dohle Bodies Cancelled 05/14/19 01:07 Sally Rods Cancelled 05/14/19 01:07 Platelet Estimate Cancelled 05/14/19 01:07 Hypogranular Platelets Cancelled 05/14/19 01:07 Clumped Platelets Cancelled 05/14/19 01:07 Giant Platelets Cancelled 05/14/19 01:07 Platelet Satelliting Cancelled 05/14/19 01:07 RBC Morphology Cancelled 05/14/19 01:07 Polychromasia Cancelled 05/14/19 01:07 Hypochromasia Cancelled 05/14/19 01:07 Poikilocytosis Cancelled 05/14/19 01:07 Basophilic Stippling Cancelled 05/14/19 01:07 Anisocytosis Cancelled 05/14/19 01:07 Microcytosis Cancelled 05/14/19 01:07 Macrocytosis Cancelled 05/14/19 01:07 Spherocytes Cancelled 05/14/19 01:07 Pappenheimer Bodies Cancelled 05/14/19 01:07 Sickle Cells Cancelled 05/14/19 01:07 Target Cells Cancelled 05/14/19 01:07 Tear Drop Cells Cancelled 05/14/19 01:07 Ovalocytes Cancelled 05/14/19 01:07 Stomatocytes Cancelled 05/14/19 01:07 [place] Bodies Cancelled 05/14/19 01:07 Echinocytes Cancelled 05/14/19 01:07 Acanthocytes (Spur) Cancelled 05/14/19 01:07 Rouleaux Cancelled 05/14/19 01:07 RBC Agglutinates Cancelled 05/14/19 01:07 Schistocytes Cancelled 05/14/19 01:07 RBC Morph Comment Cancelled 05/14/19 01:07 Sezary Cell Cancelled 05/14/19 01:07 PT 12.4 Seconds (9.0-12.0) H 05/14/19 01:41 INR 1.2 (0.9-1.1) H 05/14/19 01:41 APTT 23.0 Seconds (21.0-31.0) 05/14/19 01:41 PTT Ratio 0.8 05/14/19 01:41 Sodium 133 mmol/L (136-145) L 05/14/19 01:41 Potassium 4.5 mmol/L (3.5-5.1) 05/14/19 01:41 Chloride 97 mmol/L (98-107) L 05/14/19 01:41 Carbon Dioxide 25 mmol/L (21-32) 05/14/19 01:41 Anion Gap 11.0 (3-11) 05/14/19 01:41 BUN 23 mg/dl (7-18) H 05/14/19 01:41 Creatinine 1.23 mg/dl (0.6-1.4) 05/14/19 01:41 Est Cr Clr Drug Dosing Not Reportable 05/14/19 01:41 Est GFR ( Amer) 68.5 05/14/19 01:41 Est GFR (Non-Af Amer) 59.1 05/14/19 01:41 BUN/Creatinine Ratio 18.8 (10-20) 05/14/19 01:41 Glucose 200 mg/dl (70-99) H 05/14/19 01:41 Calcium 9.1 mg/dl (8.5-10.1) 05/14/19 01:41 Troponin I 0.025 ng/ml (0-0.045) 05/14/19 01:41 Diagnostic Findings [facility] Patient: CARMINE GARRETT (Male) : 48 test: [id number] Status: ER Date: 05/14/19 01:29 Room #: History: found unresponsive on toilet seizures hxcolon ca dg Slices: 59 Priors: Tech: Naun Sheppard @ [phone] Exams: CT HEAD Accession Numbers: [id number] Preliminary Findings Only See Final Report For Complete Findings CT HEAD: No intracranial hemorrhage, mass-effect, or edema. No skull fracture. Small scalp hematoma in the right frontal region. Chronic infarct in the left parietal lobe. Radiologist: Abdias Hough MD Study ready at 01:40 and initial results transmitted at 01:52 *This report constitutes a preliminary interpretation only. Non-acute findings felt to be unrelated to the clinical presentation may not be discussed in this report. The study will be interpreted and a final report will be generated by the local Radiologist the following shift. To reach the hospital radiology department call [phone]. If a discrepancy is found between the preliminary and final interpretations of this study, please notify us via our Client Portal at [email or web address] under QA Exams.You can also fax this report with a description of the discrepancy, or include the final report, to our daytime fax number [phone].If faxing, please indicate the severity of discrepancy using one of the following categories: [ ] 1 - Agree/Informational [ ] 2 - Unlikely to Affect Management [ ] 3 - Possible Eventual Change of Management [ ] 4 - Probable Immediate Change of Management For all other patient related information, please fax us at [phone]. [id number] [facility] Patient: CARMINE GARRETT (Male) : 48 test: [id number] Status: ER Date: 05/14/19 01:30 Room #: History: found unresponsive on toilet seizures hxcolon ca dg Slices: 843 Priors: Tech: Valarie Naun @ [phone] Exams: CT C SPINE Accession Numbers: [id number] Preliminary Findings Only See Final Report For Complete Findings CT C SPINE: No acute fracture in the cervical spine. Aneurysmal left subclavian artery measuring 2.4 cm. Radiologist: Abdias Hough MD Study ready at 01:40 and initial results transmitted at 01:55 *This report constitutes a preliminary interpretation only. Non-acute findings felt to be unrelated to the clinical presentation may not be discussed in this report. The study will be interpreted and a final report will be generated by the local Radiologist the following shift. To reach the hospital radiology department call [phone]. If a discrepancy is found between the preliminary and final interpretations of this study, please notify us via our Client Portal at [email or web address].You can also fax this report with a description of the discrepancy, or include the final report, to our daytime fax number [phone].If faxing, please indicate the severity of discrepancy using one of the following categories: [ ] 1 - Agree/Informational [ ] 2 - Unlikely to Affect Management [ ] 3 - Possible Eventual Change of Management [ ] 4 - Probable Immediate Change of Management For all other patient related information, please fax us at [phone]. [id number] Code Status & VTE Plan Code Status DNR/DNI VTE Prophylaxis Plan VTE Prophylaxis will be ordered: Yes PG Care Time/CCT Total # of Minutes Spent Total Time Spent with Patient: Total time spent is greater than 50% in coordination of care (as documented) at patient's floor/unit and/or counseling patient:
--- NOTE | 2019-05-14 06:43 | Emergency Department Note ---
Entered by Wallace Grissom acting as a scribe for ED Provider Note Name: Froylan Price Age: 69 Arrives Via: EMS Informant: Family/EMS CC: Unresponsiveness HPI: 69 y/o male arrives to the ED unresponsive. The patient's family states he was found laying on the floor in the restroom. They report they heard him fall and ran right to him. Family notes he was convulsing slightly while on the floor. They state he was doing very well today, and he did not seem abnormal. Family reports this is the third time something like this has happened, but this is the most severe it has been. They note he has been able to come out of it on his own without needing intubation. Family confirmed the patient is a DNR/DNI. They state he takes morphine for pain and state there is no way he could have taken more medication than prescribed. Family notes he is currently receiving chemotherapy for colon cancer. EMS reports the patient had shallow breathing throughout their care, and he had two seizures. One seizure was 30 seconds and another was 1.5 mins. HPI limited secondary to the patient's unresponsiveness. ROS: ROS limited secondary to the patient's unresponsiveness. Past Medical History: AAA, anemia, aortic stenosis, A-fib, BPH, CVA, DM, GERD, HLD, HTN, kidney disease, seizure, colon cancer Past Surgical History: Aortic valve replacement, knee surgery, cardiac catheter Family History: DM, cancer, CAD, HTN Social History: . Lives with family. Home Medications: Morphine Allergies NKDA Physical: Vitals: BP 103/85, O2 Sat 100 on Ambu-Bag, P 82, R 15, T 36.3 Exam: GENERAL: Patient is obtunded and unresponsive. HEAD: Abrasion to the right forehead. EYES: No scleral icterus, pupils are small and pinpoint. Eyes are moving and pupils are reactive to light. ENT: Mucous membranes moist, no nasal congestion. Dried blood to the bilateral nares. NECK: No masses appreciated, no meningismus, trachea is midline. RESPIRATORY: No dyspnea. Clear to auscultation and equal bilaterally. No wheeze, no rhonchi. CARDIOVASCULAR: Regular rate and rhythm. No murmurs, rubs, gallops appreciated. GASTROINTESTINAL: Abdomen soft, non-tender, no peritonitis. Bowel sounds positive. No masses appreciated. BACK: No midline tenderness, no CVA tenderness EXTREMITIES: Normal motion all extremities, no cyanosis, no edema. Abrasion to the left forearm. NEUROLOGIC: Obtunded and unresponsive. GCS of 3 SKIN: No rash, no jaundice, no diaphoresis. ED Course: Prior Medical Record, Triage/Nursing Notes, Medications, Allergies reviewed by Me Vital Signs: reviewed and remarkable for wnl with bagging Labs: Reviewed and remarkable for acidosis Interventions: oxygen Imaging: X ray results are stated below per my interpretation: Chest: 1 view: No infiltrate, no effusion, normal cardiac border. Radiology results as stated below per my review and the radiologist's interpretation: CT C SPINE: No acute fracture in the cervical spine. Aneurysmal left subclavian artery measuring 2.4 cm. Radiologist: Abdias Hough MD Study ready at 01:40 and initial results transmitted at 01:55 CT HEAD: No intracranial hemorrhage, mass-effect, or edema. No skull fracture. Small scalp hematoma in the right frontal region. Chronic infarct in the left parietal lobe. Radiologist: Abdias Hough MD Study ready at 01:40 and initial results transmitted at 01:52 EKG: Per My Interpretation: Indication AMS: Afib RVR laeral ST depressions, qtc 471. Similar to 04/01/19 though rate increased. Reassessments/Times: 0100: Past medical records reviewed. The patient was evaluated in room B01. A complete history and physical exam was performed. 0154: Upon reevaluation, the patient is resting comfortably. I discussed laboratory and radiographic results with the family. They verbalized agreement of the treatment plan. The patient will be evaluated for further management and care. 0214: I reviewed the patient's case with Dr. Schaffer, [facility]. He will evaluate the patient for further management. Blood pressure: Normal. No Referral necessary Disposition: Hospitalization Differentials: Toxicological, Infectious, Stroke, SAH, Trauma, Electrolyte Abn ormality, Hypoglycemia, Alcohol Intoxication, Drug Intoxication, Cardiac Abnormality, Sepsis, Meningitis/Encephalitis, Trauma, Excited Delirium, Serotonin Syndrome, Psychiatric, amongst other pathologies Entertained. Medical Decision Makin yr old male with colon CA who is very definitively DNR by both paperwork and multiple family members. Arrives obtunded after passing out and striking head on something. He is obtunded and is not responsive. He should be intubated but family makes clear that he is not to be intubated. After bagging for quite some time he eventually started breathing on his own and was switched to NRB (and then to NC). Labs, CT head, EKG, unremarkable though abg clearly shows acidosis which I suspect is hypoventilation related. He is not a TPA candidate and I even discussed this with family who agree aggresive treatment with TPA would be against his wishes. On top of that he had seizure per EMS thus further contraindication. Hospitalists involved early and agree with plan to hold off on further imaging (MRI brain, CTA Chest) at this time and just bring in for monitoring and comfort care. Family very much aware severity of patient's condition. Suspect this was stroke as if seizure would be expecting to be coming out of post ictal by this time. Patient does not meet criteria to transfer to trauma center. Impression: Syncope Closed head Injury Obtunded Bobby Hugo MD The scribe's documentation has been prepared under my direction and personally reviewed by me in its entirety. I confirm that the note above accurately reflects all work, treatment, procedures, and medical decision making performed by me. Impression & Plan Syncope, Obtunded, CHI (closed head injury) Past Med/Surg History Medical History AAA (abdominal aortic aneurysm) NEW FINDING Anemia Aortic stenosis Atrial fibrillation BPH (benign prostatic hyperplasia) Cancer COLON CANCER (NEW DX) RADIATION JUST COMPLETED Chronic systolic (congestive) heart failure Colon cancer Congestive heart failure CVA (cerebral vascular accident) 08/11/18 DM type 2 (diabetes mellitus, type 2) GERD (gastroesophageal reflux disease) HLD (hyperlipidemia) HTN (hypertension) Kidney disease (Chronic) Nonischemic cardiomyopathy Osteoarthritis Seizure "SMALL SEIZURE AT TIME OF CVA 07/2018" Sleep apnea Sleep apnea (Chronic) Surgical History H/O aortic valve replacement (Chronic) 2010 AT [facility] H/O knee surgery RT/LEFT History of cardiac cath 2010 History of colonoscopy History of tooth extraction Port-A-Cath in place (Chronic) Family History Brother Family history of diabetes mellitus Mother Colon cancer Father Coronary heart disease Hypertension Sister Hypertension Grandmother Diabetes Social History Preferred Language: Armenian Communication Ability: Impaired Oracle R12 Developer Required: No Beliefs That Will Affect Care: Jew Jew Beliefs: church marital status: Current Living Situation: Family Current Living Situation Comment: brother, tameka, sister Feels Safe at Home: Yes Smoking Status: Former smoker Tobacco Type: cigarettes ; Age Quit Using Tobacco: 48 ; Cigarettes Per Day: 5 ; Second Hand Exposure: No ; Hx Alcohol Use: No Hx Substance Use: No Results & Data Vital Signs Vital Signs - 24 hr 05/14/19 01:03 05/14/19 01:14 05/14/19 01:15 Pulse Rate 115 H Pulse Rate [Finger] 103 H Respiratory Rate 14 Blood Pressure 103/85 Blood Pressure [Right Arm] 113/70 Blood Pressure Mean 91 Blood Pressure Mean [Right Arm] 84 Blood Pressure Position [Right Arm] Lying Pulse Oximetry 100 100 Oxygen Delivery Method Ambu-Bag Non-rebreather Non-rebreather Oxygen Flow Rate 15 15 Sepsis Action Taken by Nursing No Action Required 05/14/19 01:34 05/14/19 01:53 05/14/19 02:06 Pulse Rate Pulse Rate [Finger] 92 H 79 84 Respiratory Rate 17 21 19 Blood Pressure Blood Pressure [Right Arm] 111/84 112/77 115/86 Blood Pressure Mean Blood Pressure Mean [Right Arm] 93 88 95 Blood Pressure Position [Right Arm] Pulse Oximetry 100 100 100 Oxygen Delivery Method Non-rebreather Non-rebreather Oxygen Flow Rate 15 15 Sepsis Action Taken by Nursing 05/14/19 02:53 Pulse Rate Pulse Rate [Finger] 92 H Respiratory Rate 23 Blood Pressure Blood Pressure [Right Arm] 135/92 Blood Pressure Mean Blood Pressure Mean [Right Arm] 106 Blood Pressure Position [Right Arm] Pulse Oximetry 100 Oxygen Delivery Method Non-rebreather Oxygen Flow Rate 15 Sepsis Action Taken by Nursing Laboratory Data Result diagrams: 05/14/19 01:41 05/14/19 01:41 Lab Results 05/14/19 05/14/19 05/14/19 Range/Units 01:07 01:07 01:07 WBC Cancelled RBC Cancelled Hgb Cancelled Hct Cancelled MCV Cancelled MCH Cancelled MCHC Cancelled RDW Std Deviation Cancelled RDW Coeff of Amandeep Cancelled Plt Count Cancelled MPV Cancelled Immature Gran % (Auto) Cancelled Neut % (Auto) Cancelled Lymph % (Auto) Cancelled Fountain % (Auto) Cancelled Eos % (Auto) Cancelled Baso % (Auto) Cancelled Immature Gran # (Auto) Cancelled Neut # (Auto) Cancelled Lymph # (Auto) Cancelled Fountain # (Auto) Cancelled Eos # (Auto) Cancelled Baso # (Auto) Cancelled Absolute Nucleated RBC Cancelled Nucleated RBC % (auto) Cancelled Neutrophils % (Manual) Cancelled Band Neutrophils % Cancelled Lymphocytes % (Manual) Cancelled Prolymphocyte % Cancelled Reactive Lymphs % (Man) Cancelled Monocytes % (Manual) Cancelled Eosinophils % (Manual) Cancelled Basophils % (Manual) Cancelled Metamyelocytes % (Man) Cancelled Myelocytes % (Man) Cancelled Promyelocytes % (Man) Cancelled Blast Cells % (Manual) Cancelled Plasma Cell % (Manual) Cancelled Other Cells % Cancelled Nucleated RBC % Cancelled Neutrophils # (Manual) Cancelled Band Neutrophils # Cancelled Total Absolute Neuts Cancelled Lymphocytes # (Manual) Cancelled Prolymphocyte # Cancelled Reactive Lymphs # Cancelled Total Abs Lymphocytes Cancelled Monocytes # (Manual) Cancelled Eosinophils # (Manual) Cancelled Basophils # (Manual) Cancelled Metamyelocytes # (Man) Cancelled Myelocytes # (Manual) Cancelled Promyelocytes # (Man) Cancelled Blast Cells # (Man) Cancelled Plasma Cell # (Manual) Cancelled Other Cells # Cancelled Nucleated RBCs # (Man) Cancelled Hypersegmented Neuts Cancelled Hyposegmented Neuts Cancelled Hypogranular Neuts Cancelled Large Granular Lymphs Cancelled # Lrg Granular Lymphs Cancelled Hairy Cells Cancelled Smudge Cells Cancelled Toxic Granulation Cancelled Toxic Vacuolation Cancelled Dohle Bodies Cancelled Sally Rods Cancelled Platelet Estimate Cancelled Hypogranular Platelets Cancelled Clumped Platelets Cancelled Giant Platelets Cancelled Platelet Satelliting Cancelled RBC Morphology Cancelled Polychromasia Cancelled Hypochromasia Cancelled Poikilocytosis Cancelled Basophilic Stippling Cancelled Anisocytosis Cancelled Microcytosis Cancelled Macrocytosis Cancelled Spherocytes Cancelled Pappenheimer Bodies Cancelled Sickle Cells Cancelled Target Cells Cancelled Tear Drop Cells Cancelled Ovalocytes Cancelled Stomatocytes Cancelled Rodriguez-[place] Bodies Cancelled Echinocytes Cancelled Acanthocytes (Spur) Cancelled Rouleaux Cancelled RBC Agglutinates Cancelled Schistocytes Cancelled RBC Morph Comment Cancelled Sezary Cell Cancelled PT Cancelled INR Cancelled APTT Cancelled PTT Ratio Cancelled Sodium Cancelled Potassium Cancelled Chloride Cancelled Carbon Dioxide Cancelled Anion Gap Cancelled BUN Cancelled Creatinine Cancelled Est Cr Clr Drug Dosing Cancelled Est GFR ( Amer) Cancelled Est GFR (Non-Af Amer) Cancelled BUN/Creatinine Ratio Cancelled Glucose Cancelled Calcium Cancelled Troponin I Cancelled 05/14/19 05/14/19 05/14/19 Range/Units 01:41 01:41 01:41 WBC 3.21 L RBC 3.84 L Hgb 12.5 L Hct 37.2 L MCV 96.9 MCH 32.6 MCHC 33.6 RDW Std Deviation 58.0 H RDW Coeff of Amandeep 16.5 H Plt Count 113 L MPV 10.7 H Immature Gran % (Auto) 1.2 Neut % (Auto) 86.3 Lymph % (Auto) 9.7 Fountain % (Auto) 2.5 Eos % (Auto) 0.3 Baso % (Auto) 0.0 Immature Gran # (Auto) 0.04 H Neut # (Auto) 2.77 Lymph # (Auto) 0.31 L Fountain # (Auto) 0.08 L Eos # (Auto) 0.01 Baso # (Auto) 0.00 Absolute Nucleated RBC Nucleated RBC % (auto) Neutrophils % (Manual) Band Neutrophils % Lymphocytes % (Manual) Prolymphocyte % Reactive Lymphs % (Man) Monocytes % (Manual) Eosinophils % (Manual) Basophils % (Manual) Metamyelocytes % (Man) Myelocytes % (Man) Promyelocytes % (Man) Blast Cells % (Manual) Plasma Cell % (Manual) Other Cells % Nucleated RBC % Neutrophils # (Manual) Band Neutrophils # Total Absolute Neuts Lymphocytes # (Manual) Prolymphocyte # Reactive Lymphs # Total Abs Lymphocytes Monocytes # (Manual) Eosinophils # (Manual) Basophils # (Manual) Metamyelocytes # (Man) Myelocytes # (Manual) Promyelocytes # (Man) Blast Cells # (Man) Plasma Cell # (Manual) Other Cells # Nucleated RBCs # (Man) Hypersegmented Neuts Hyposegmented Neuts Hypogranular Neuts Large Granular Lymphs # Lrg Granular Lymphs Hairy Cells Smudge Cells Toxic Granulation Toxic Vacuolation Dohle Bodies Sally Rods Platelet Estimate Hypogranular Platelets Clumped Platelets Giant Platelets Platelet Satelliting RBC Morphology Polychromasia Hypochromasia Poikilocytosis Basophilic Stippling Anisocytosis Microcytosis Macrocytosis Spherocytes Pappenheimer Bodies Sickle Cells Target Cells Tear Drop Cells Ovalocytes Stomatocytes Rodriguez-[place] Bodies Echinocytes Acanthocytes (Spur) Rouleaux RBC Agglutinates Schistocytes RBC Morph Comment Sezary Cell PT 12.4 H INR 1.2 H APTT 23.0 PTT Ratio 0.8 Sodium 133 L Potassium 4.5 Chloride 97 L Carbon Dioxide 25 Anion Gap 11.0 BUN 23 H Creatinine 1.23 Est Cr Clr Drug Dosing Not Reportable Est GFR ( Amer) 68.5 Est GFR (Non-Af Amer) 59.1 BUN/Creatinine Ratio 18.8 Glucose 200 H Calcium 9.1 Troponin I 0.025 Administered Medications Sodium Chloride (Nss 1000ml) 1,000 mls @ 80 mls/hr IV .[id number] JENNIFFER Stop: 06/13/19 04:05 Last Admin: 05/14/19 04:39 Dose: 80 mls/hr Documented by: [id number] Discharge Plan Visit Data *Final* Discharge Date/Time: 05/14/19 03:41 Chief Complaint: Unresponsive Stated Complaint: UNRESPONSIVE/SEIZURE Other Complaint: Seizure ED Provider: Bobby Hugo Discharge Problem: Syncope, Obtunded, CHI (closed head injury) Patient Disposition: Admitted As Inpatient Discharge Instructions Interventions: ED Discharge Assessment Last Done: 05/14/19 03:41 Discharge Problem: Syncope Qualifiers: Syncope type: unspecified Qualified Code(s): R55 - Syncope and collapse CHI (closed head injury) Qualifiers: Encounter type: initial encounter Qualified Code(s): S09.90XA - Unspecified injury of head, initial encounter The scribe's documentation has been prepared under my direction and personally reviewed by me in its entirety. I confirm that the note above accurately reflects all work, treatment, procedures, and medical decision making performed by me.
--- NOTE | 2019-05-14 06:48 | CT Scan Report ---
HEAD CT NONCONTRAST CT DOSE: 1044.65 mGy.cm HISTORY: Altered mental status. Syncope. TECHNIQUE: Multiaxial CT images of the head were performed without the use of intravenous contrast. A utomated exposure control was utilized for this study. A dose lowering technique was utilized adheri ng to the principles of ALARA. Comparison: None. Findings: The paranasal sinuses and mastoid air cells are clear. The calvarium and skull base are int act. The ventricles and sulci are within normal limits. There is no mass, hematoma, midline shift, or acute infarct. Small focus of encephalomalacia within the left high convexity, unchanged. This is co nsistent with an old infarct. Mild right supraorbital soft tissue swelling. Impression: No acute intracranial abnormality. Electronically signed by: Alden Feliciano M.D. 05/14/2019 6:46 AM
--- NOTE | 2019-05-14 07:23 | CT Scan Report ---
CERVICAL SPINE CT CT DOSE: HISTORY: syncope, ams, head injury TECHNIQUE: Multiaxial CT images of the cervical spine were performed and reformatted in the sagittal and coronal plane without the use of contrast. A dose lowering technique was utilized adhering to th e principles of ALARA. COMPARISON: Cervical spine CT 04/01/2019. FINDINGS: No fractures. No subluxation. Prevertebral soft tissues and the C1-C2 interval are intact. No pneumothorax. Aneurysmal dilatation of the proximal left subclavian artery measuring 2.5 cm in isis meter. Right-sided pacemaker wires are noted. Left subclavian catheter is also partially visualized. IMPRESSION: No fractures within the cervical spine. Aneurysmal dilatation of the proximal left subclavian artery measuring 2.5 cm in diameter. Electronically signed by: Alden Feliciano M.D. 05/14/2019 7:22 AM
--- NOTE | 2019-05-14 08:27 | XRay Report ---
XR chest 1V portable HISTORY: syncope COMPARISON: Chest 04/15/2019. FINDINGS: Right-sided pacemaker, poststernotomy changes, and an aortic valve prosthesis are again not ed. The heart is mildly enlarged. Rotated study. No evidence for pulmonary edema. No new focal lung c onsolidations to suggest pneumonia. No pleural effusions. No pneumothorax. Chronic elevation of the r ight hemidiaphragm. Left subclavian Port-A-Cath terminates in the SVC. Stable right midlung zone dens ity measuring 7 mm. This corresponds to the sclerotic focus at the scapular tip and is better appreci ated on the recent chest CT. IMPRESSION: No significant change compared to the prior study. No acute process. Stable cardiomegaly. Electronically signed by: Alden Feliciano M.D. 05/14/2019 8:26 AM
[2019-05-14] MEDS ORDERED: HALOPERIDOL LACTATE 5 MG/ML 1 ML VIAL IM STA (08:36)
[2019-05-14] MEDS ORDERED: HALOPERIDOL LACTATE 5 MG/ML 1 ML VIAL ONE (08:38)
--- NOTE | 2019-05-14 09:18 | Neurology Consultation ---
Date of Consultation May 14, 2019 Assessment & Plan (1) Unresponsive state: Persistent unresponsive state/alteration in mental status occurring after what could have been either an episode of syncope or seizure occurring last night during which time the patient was found on the floor exhibiting brief convulsive type movements. He did apparently strike his head during this episode as there is some evidence of a right frontal scalp hematoma. He reportedly had 2 additional convulsive episodes witnessed by EMS as well. His past medical history is further complicated by stroke, seizure-like episodes, and atrial fibrillation for which he has been unable to take anticoagulation due to history of gastrointestinal hemorrhage and anemia in the context of active chronic colon cancer. I would like this patient to have a brain MRI with and without contrast to exclude an acute infarct as well as the possibility of metastatic disease. An EEG would also be reasonable to evaluate for epileptiform abnormalities. I would also recommend starting Keppra for seizure prophylaxis. Would recommend a 1 g IV loading dose followed by 500 mg IV every 12 hours History of Present Illness Reason for Consultation: Unresponsive state Requesting Physician: Geoff Schaffer MD Attending Physician: Chu Moses DO History of Present Illness The patient is a 69-year-old male who was found convulsing on the bathroom floor by family members last night. They had heard him fall. He has had several similar episodes previously. EMS had indicated shallow breathing and 2 seizure episodes, 1 of which lasted 30 seconds, the other 90 seconds. He remained unresponsive during his evaluation in the emergency department. Intubation was recommended although the family declined as he is DNR/DNI. A CT of the head was negative for acute process or hemorrhage although there was evidence of a small scalp hematoma in the right frontal region. There is a chronic left parietal infarct. The patient has been admitted for monitoring and comfort care with the potential to order additional testing such as MRI, EEG, and other medical testing depending on his status. He remains obtunded this morning and is easily agitated. He is unable to provide any details pertaining to his history of present illness or past medical history. I had evaluated this patient in the outpatient neurology clinic this past February regarding his history of right pontine and left parietal stroke and associated isolated convulsive episode that occurred this past July. He was cared for at [facility] at that time. An EEG at that time was unremarkable. A CT angiogram of the head and neck have revealed mild atherosclerotic narrowing within the basilar artery and was otherwise unremarkable. Past medical history also notable for cardiomyopathy, congestive heart failure, aortic valve replacement, chronic atrial fibrillation, and colon cancer. He has been unable to take anticoagulation. He had briefly been treated with Keppra after the isolated convulsive episode this past July, although this medication was discontinued given apparent clinical stability. Allergies Allergy/AdvReac Type Severity Reaction Status Date / Time No Known Allergies Allergy Verified 05/14/19 01:22 Home Medications Home Medications Medication Instructions Recorded Confirmed Type aspirin [Aspirin Low Dose] 81 mg PO QAM 08/11/18 05/14/19 History folic acid 400 mcg PO QAM 08/11/18 05/14/19 History spironolactone 25 mg PO QAM 08/11/18 05/14/19 History ascorbic acid (vitamin C) [Vitamin 500 mg PO QAM 09/07/18 05/14/19 History C] omega 0-inl-cht-fish oil [Fish Oil] 1 cap PO QAM 09/07/18 05/14/19 History omeprazole 20 mg PO QAM 09/07/18 05/14/19 History tamsulosin [Flomax] 0.4 mg PO QPM 09/07/18 05/14/19 History Levemir U-100 Insulin 10 unit SUBCUT HS 11/16/18 05/14/19 History Cholestyramine Light 4 g PO BID@1000,2200 #60 ea 01/26/19 05/14/19 Rx amoxicillin 500 mg tablet 2,000 mg PO ONCE PRN tab 02/04/19 05/14/19 History atorvastatin 20 mg tablet 20 mg PO HS 03/03/19 05/14/19 History diclofenac sodium [Voltaren] 1 gm TOPICAL QID PRN 04/01/19 05/14/19 History ferrous sulfate 325 mg PO TID 04/01/19 05/14/19 History multivitamin 1 tab PO DAILY 04/01/19 05/14/19 History oxycodone-acetaminophen 1 tab PO Q6H PRN 04/01/19 05/14/19 History potassium chloride [Klor-Con M20] 20 meq PO DAILY 04/01/19 05/14/19 History prednisone 20 mg PO QAM 04/01/19 05/14/19 History furosemide [Lasix] 20 mg PO QAM #0 tab 04/03/19 05/14/19 Rx lidocaine 1 patch TOP DAILY #30 ea 04/03/19 05/14/19 Rx metoprolol succinate 25 mg 25 mg PO QAM #90 tab 05/04/19 05/14/19 Rx tablet,extended release 24 hr docusate sodium [Stool Softener] 500 mg PO BID 05/14/19 05/14/19 History morphine 15 mg PO TID PRN 05/14/19 05/14/19 History Patient History Medical History AAA (abdominal aortic aneurysm) NEW FINDING Anemia Aortic stenosis Atrial fibrillation BPH (benign prostatic hyperplasia) Cancer COLON CANCER (NEW DX) RADIATION JUST COMPLETED Chronic systolic (congestive) heart failure Colon cancer Congestive heart failure CVA (cerebral vascular accident) 08/11/18 DM type 2 (diabetes mellitus, type 2) GERD (gastroesophageal reflux disease) HLD (hyperlipidemia) HTN (hypertension) Kidney disease (Chronic) Nonischemic cardiomyopathy Osteoarthritis Seizure "SMALL SEIZURE AT TIME OF CVA 07/2018" Sleep apnea Sleep apnea (Chronic) Surgical History H/O aortic valve replacement (Chronic) 2010 AT [facility] H/O knee surgery RT/LEFT History of cardiac cath 2010 History of colonoscopy History of tooth extraction Port-A-Cath in place (Chronic) Family History Brother Family history of diabetes mellitus Mother Colon cancer Father Coronary heart disease Hypertension Sister Hypertension Grandmother Diabetes Social History Preferred Language: Egyptian Communication Ability: Impaired Vp Public Relations Required: No Beliefs That Will Affect Care: Jainism Jainism Beliefs: christian marital status: Current Living Situation: Family Current Living Situation Comment: brother, tameka, sister Feels Safe at Home: Yes Smoking Status: Former smoker Tobacco Type: cigarettes ; Age Quit Using T obacco: 48 ; Cigarettes Per Day: 5 ; Second Hand Exposure: No ; Hx Alcohol Use: No Hx Substance Use: No Review of Systems Review of Systems: Unobtainable due to reduced consciousness Physical Exam Physical Exam: The patient is a well-developed elderly male. He is obtunded. He will open his eyes briefly to verbal stimulation and becomes easily agitated and will groan. He does not follow commands, answer questions, or attempt to speak. Orientation and memory cannot be assessed. He is inattentive and easily agitated. He will groan but will not speak. He is unable to name objects, repeat phrases, and does not appear to comprehend language or speech. Fund of knowledge cannot be assessed. Visual ruff and visual acuity cannot be assessed. Pupils are equal round and reactive to light. He has a tendency to exhibit a leftward gaze. Eye movements cannot be fully assessed. There is no nystagmus. Facial sensation cannot be assessed. There is flattening of the right nasolabial fold. Hearing cannot be assessed. Movement of the tongue and palate cannot be assessed. Shoulder shrug function cannot be assessed. Sensation cannot be adequately assessed. Deep tendon reflexes cannot be adequately assessed as the patient becomes significantly agitated and begins attempting to remove his IV, pulse oximetry monitor, and nonrebreather facemask. Testing of coordination cannot be adequately completed. The patient does not c ooperate adequately for direct ophthalmoscopic examination or auscultation of the carotids. Gait and station cannot be evaluated. Muscle strength cannot be fully evaluated. However, to observation, the patient does grab at the bed sheets in a symmetric fashion. He did not kick about her move his legs very much during my assessment. The right leg is held in a somewhat externally rotated posture. Muscle tone cannot be adequately assessed. There is no obvious atrophy. No tremors or dyskinesias or other obvious abnormal movements observed. Results & Data Vital Signs (Past 12 Hours) Vital Signs Temp Pulse Pulse Resp BP BP Pulse Ox 05/14/19 07:33 65 05/14/19 07:21 36.6 C 63 16 109/74 100 05/14/19 05:15 82 05/14/19 04:33 36.3 C L 95 H 16 148/97 H 97 05/14/19 03:22 95 H 23 117/95 100 05/14/19 02:53 92 H 23 135/92 100 05/14/19 02:06 84 19 115/86 100 05/14/19 01:53 79 21 112/77 100 05/14/19 01:34 92 H 17 111/84 100 05/14/19 01:15 103 H 14 113/70 100 05/14/19 01:03 115 H 103/85 100 Laboratory Results WBC 3.21, hemoglobin 12.5, hematocrit 37.2, platelet count 113, sodium 133, potassium 4.5, BUN 23, creatinine 1.23, glucose 200, calcium 9.1, troponin 0 0.[address] of the head is negative for hemorrhage or acute process. There is a small focus of encephalomalacia within the left high convexity, unchanged compared with a previous CT of the head done April 01, 2019. I reviewed the images as well as the radiologist interpretation of these tests. A CT of the cervical spine is negative for fractures. 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 A CTA of the head and neck completed August 11, 2018 revealed mild focal narrowing within the proximal basilar artery and was otherwise unremarkable. An electrocardiogram reveals atrial fibrillation with rapid ventricular response, 109 bpm An echocardiogram completed April 02, 2019 reveals a severely dilated left ventricle with severely reduced left ventricular systolic function. There is dilatation of both atria. There is a bioprosthetic aortic valve. PG Care Time/CCT Total # of Minutes Spent Total Time Spent with Patient: Total time spent is greater than 50% in coordin ation of care (as documented) at patient's floor/unit and/or counseling patient:
[2019-05-14] MEDS: MoRPHine SULFATE 5 MG/0.25 ML UDP PO PRN ×2 (11:34→16:09)
--- NOTE | 2019-05-14 13:42 | Hospitalist Progress Note ---
Date of Service May 14, 2019 Assessment & Plan (1) Unresponsive state: Pt is a 69 y/o M with rectal adenocarcinoma, who presented to the emergency room after falling at home and being found my family less responsive than normal. Unresponsive state/Agitation: - ?delirium vs toxic encephalopathy vs concussion vs withdrawal - initially unresponsive to providers when seen in ER; improved this morning able to move all extremities symmetrically, vocal with staff about pain - continuing to improve throughout the day with presence of family members - recognizes family members without stimulation or coaxing into their names; previously had similar episode when was seen at [facility], and family noted at that time it was worse at night when agitated by noises/staff - CT head negative for any acute intracranial abnormalities - EEG demonstrated encephalopathy but no seizure activity - after extensive discussions with family, will hold off on MRI as patient is improving, making stroke induced unresponsiveness less likely, and risk/benefit of having to shut off his ICD is too high for them at this time - Neuro consulted: Miller for baseline seizure prophylaxis given previous seizures post-stroke previously Syncope: - likely 2/2 vasovagal response, as patient has baseline rectal pain, and increased rectal pain with bowel movement (2) Syncope: Supervising Physician Co-Signing Physician Notes I personally examined the patient and verified all vieira points of history and exam, discussed case, and agree with decision making with Dr Cotter. waking up more - still not really able to communicate but is sometimes loosely following commands. family present later updated by dr cotter, personally present for some of this, d/w dr cotter extensively otherwise vitals noted laying in bed appearing mildly restless (but apparently far better than before) sometimes moaning a little. heent nc, forehead with egg shaped bruise, nose crusted in blood. neck supple. cardio reg no r/m/g. lungs cta b/l no r/r/w good effort. abd soft nd but does seem to have mild diffuse tenderness no guarding no rebound. ext no c/c/e no calf tenderness. no focal neuro deficits unresponsive - seems to be delirium - most likely chain of events being syncope (?vagal most probable) leading to head trauma (no bleed, but with impact noted more than likely concussion) leading to seizures leading to delirium potentiated by hospital environment. can't rule out toxic as it relates to his pain meds and or potential for pain med withdrawal (continue careful management with short acting morphine to affect pain control and protect against withdrawal, but lower dosing than normal given possible concern on sedation from pain meds as possible culprit in delirium picture as well). nothing overtly appearing infectious, outside of postictal, nothing else appearing overtly metabolic. continue to follow closely, serial exams, supportive care, but does seem to be improving. seizures - keppra. otherwise as above. given fall/trauma will hold on pharmacologic DVT proph for now (no bleeding noted on scans, but cetainly high risk) and then by tomorrow if not moving well and also if no bleeding has evolved, likely can start heparin SQ Subjective Patient this morning was incredibly combative, and unable to converse with this provider. After extensive discussions with family, last night the patient went to the bathroom and then they heard a thud in the bathroom. This is not the first time he has done this after having a bowel movement, as he gets a large amount of rectal pain with all bowel movements. After being brought to the hospital they were concerned about the amount of pain he would have been last ni ght, and checked to see if he had taken any more pain medications last night, he took his normal dose of 25mg Morphine at 6pm, and after family counted the medications they saw that there we no additional pills gone. 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 Family reported that after they had the chance to go into the room, he was able to remember some of their names quickly and that he looked considerably better now than he had last night. Review of Systems Review of Systems: Unobtainable due to reduced consciousness Physical Exam Constitutional: + altered mental status Eyes: PERRL, conjunctivae normal, anicteric sclerae Respiratory: normal respiratory effort, lungs clear to auscultation Cardiovascular: RRR, no murmur, no edema Gastrointestinal (Abdomen): Inspection/Auscultation: abdomen normal to inspection and normal bowel sounds Percussion/Palpation: + abdomen tender, + guarding and abdomen soft Musculoskeletal: Extremities: extremities normal to inspection Neurologic: moves all extremities; no focal motor deficits Motor/Sensory: no tremor Results & Data Vital Signs (Past 12 Hours) Vital Signs Temp Pulse Pulse Resp BP Pulse Ox 05/14/19 11:23 36.1 C L 65 18 95 05/14/19 07:33 65 05/14/19 07:21 36.6 C 63 16 109/74 100 05/14/19 05:15 82 05/14/19 04:33 36.3 C L 95 H 16 148/97 H 97 05/14/19 03:22 95 H 23 117/95 100 05/14/19 02:53 92 H 23 135/92 100 05/14/19 02:06 84 19 115/86 100 05/14/19 01:53 79 21 112/77 100 05/14/19 01:34 92 H 17 111/84 100 Laboratory Results 05/14/19 05/14/19 05/14/19 Range/Units 11:40 07:36 01:41 WBC RBC Hgb Hct MCV MCH MCHC RDW Std Deviation RDW Coeff of Amandeep Plt Count MPV Immature Gran % (Auto) Neut % (Auto) Lymph % (Auto) Jackson % (Auto) Eos % (Auto) Baso % (Auto) Immature Gran # (Auto) Neut # (Auto) Lymph # (Auto) Jackson # (Auto) Eos # (Auto) Baso # (Auto) Absolute Nucleated RBC Nucleated RBC % (auto) Neutrophils % (Manual) Band Neutrophils % Lymphocytes % (Manual) Prolymphocyte % Reactive Lymphs % (Man) Monocytes % (Manual) Eosinophils % (Manual) Basophils % (Manual) Metamyelocytes % (Man) Myelocytes % (Man) Promyelocytes % (Man) Blast Cells % (Manual) Plasma Cell % (Manual) Other Cells % Nucleated RBC % Neutrophils # (Manual) Band Neutrophils # Total Absolute Neuts Lymphocytes # (Manual) Prolymphocyte # Reactive Lymphs # Total Abs Lymphocytes Monocytes # (Manual) Eosinophils # (Manual) Basophils # (Manual) Metamyelocytes # (Man) Myelocytes # (Manual) Promyelocytes # (Man) Blast Cells # (Man) Plasma Cell # (Manual) Other Cells # Nucleated RBCs # (Man) Hypersegmented Neuts Hyposegmented Neuts Hypogranular Neuts Large Granular Lymphs # Lrg Granular Lymphs Hairy Cells Smudge Cells Toxic Granulation Toxic Vacuolation Dohle Bodies Sally Rods Platelet Estimate Hypogranular Platelets Clumped Platelets Giant Platelets Platelet Satelliting RBC Morphology Polychromasia Hypochromasia Poikilocytosis Basophilic Stippling Anisocytosis Microcytosis Macrocytosis Spherocytes Pappenheimer Bodies Sickle Cells Target Cells Tear Drop Cells Ovalocytes Stomatocytes Rodriguez-Cupert[place] Bodies Echinocytes Acanthocytes (Spur) Rouleaux RBC Agglutinates Schistocytes RBC Morph Comment Sezary Cell PT 12.4 H INR 1.2 H APTT 23.0 PTT Ratio 0.8 Sodium Potassium Chloride Carbon Dioxide Anion Gap BUN Creatinine Est Cr Clr Drug Dosing Est GFR ( Amer) Est GFR (Non-Af Amer) BUN/Creatinine Ratio Glucose POC Glucose 134 H 230 H (70-99) Calcium Troponin I 05/14/19 05/14/19 05/14/19 Range/Units 01:41 01:41 01:07 WBC 3.21 L RBC 3.84 L Hgb 12.5 L Hct 37.2 L MCV 96.9 MCH 32.6 MCHC 33.6 RDW Std Deviation 58.0 H RDW Coeff of Amandeep 16.5 H Plt Count 113 L MPV 10.7 H Immature Gran % (Auto) 1.2 Neut % (Auto) 86.3 Lymph % (Auto) 9.7 Jackson % (Auto) 2.5 Eos % (Auto) 0.3 Baso % (Auto) 0.0 Immature Gran # (Auto) 0.04 H Neut # (Auto) 2.77 Lymph # (Auto) 0.31 L Jackson # (Auto) 0.08 L Eos # (Auto) 0.01 Baso # (Auto) 0.00 Absolute Nucleated RBC Nucleated RBC % (auto) Neutrophils % (Manual) Band Neutrophils % Lymphocytes % (Manual) Prolymphocyte % Reactive Lymphs % (Man) Monocytes % (Manual) Eosinophils % (Manual) Basophils % (Manual) Metamyelocytes % (Man) Myelocytes % (Man) Promyelocytes % (Man) Blast Cells % (Manual) Plasma Cell % (Manual) Other Cells % Nucleated RBC % Neutrophils # (Manual) Band Neutrophils # Total Absolute Neuts Lymphocytes # (Manual) Prolymphocyte # Reactive Lymphs # Total Abs Lymphocytes Monocytes # (Manual) Eosinophils # (Manual) Basophils # (Manual) Metamyelocytes # (Man) Myelocytes # (Manual) Promyelocytes # (Man) Blast Cells # (Man) Plasma Cell # (Manual) Other Cells # Nucleated RBCs # (Man) Hypersegmented Neuts Hyposegmented Neuts Hypogranular Neuts Large Granular Lymphs # Lrg Granular Lymphs Hairy Cells Smudge Cells Toxic Granulation Toxic Vacuolation Dohle Bodies Sally Rods Platelet Estimate Hypogranular Platelets Clumped Platelets Giant Platelets Platelet Satelliting RBC Morphology Polychromasia Hypochromasia Poikilocytosis Basophilic Stippling Anisocytosis Microcytosis Macrocytosis Spherocytes Pappenheimer Bodies Sickle Cells Target Cells Tear Drop Cells Ovalocytes Stomatocytes Rodriguez-[place] Bodies Echinocytes Acanthocytes (Spur) Rouleaux RBC Agglutinates Schistocytes RBC Morph Comment Sezary Cell PT INR APTT PTT Ratio Sodium 133 L Cancelled Potassium 4.5 Cancelled Chloride 97 L Cancelled Carbon Dioxide 25 Cancelled Anion Gap 11.0 Cancelled BUN 23 H Cancelled Creatinine 1.23 Cancelled Est Cr Clr Drug Dosing Not Reportable Cancelled Est GFR ( Amer) 68.5 Cancelled Est GFR (Non-Af Amer) 59.1 Cancelled BUN/Creatinine Ratio 18.8 Cancelled Glucose 200 H Cancelled POC Glucose (70-99) Calcium 9.1 Cancelled Troponin I 0.025 Cancelled 05/14/19 05/14/19 Range/Units 01:07 01:07 WBC Cancelled RBC Cancelled Hgb Cancelled Hct Cancelled MCV Cancelled MCH Cancelled MCHC Cancelled RDW Std Deviation Cancelled RDW Coeff of Amandeep Cancelled Plt Count Cancelled MPV Cancelled Immature Gran % (Auto) Cancelled Neut % (Auto) Cancelled Lymph % (Auto) Cancelled Jackson % (Auto) Cancelled Eos % (Auto) Cancelled Baso % (Auto) Cancelled Immature Gran # (Auto) Cancelled Neut # (Auto) Cancelled Lymph # (Auto) Cancelled Jackson # (Auto) Cancelled Eos # (Auto) Cancelled Baso # (Auto) Cancelled Absolute Nucleated RBC Cancelled Nucleated RBC % (auto) Cancelled Neutrophils % (Manual) Cancelled Band Neutrophils % Cancelled Lymphocytes % (Manual) Cancelled Prolymphocyte % Cancelled Reactive Lymphs % (Man) Cancelled Monocytes % (Manual) Cancelled Eosinophils % (Manual) Cancelled Basophils % (Manual) Cancelled Metamyelocytes % (Man) Cancelled Myelocytes % (Man) Cancelled Promyelocytes % (Man) Cancelled Blast Cells % (Manual) Cancelled Plasma Cell % (Manual) Cancelled Other Cells % Cancelled Nucleated RBC % Cancelled Neutrophils # (Manual) Cancelled Band Neutrophils # Cancelled Total Absolute Neuts Cancelled Lymphocytes # (Manual) Cancelled Prolymphocyte # Cancelled Reactive Lymphs # Cancelled Total Abs Lymphocytes Cancelled Monocytes # (Manual) Cancelled Eosinophils # (Manual) Cancelled Basophils # (Manual) Cancelled Metamyelocytes # (Man) Cancelled Myelocytes # (Manual) Cancelled Promyelocytes # (Man) Cancelled Blast Cells # (Man) Cancelled Plasma Cell # (Manual) Cancelled Other Cells # Cancelled Nucleated RBCs # (Man) Cancelled Hypersegmented Neuts Cancelled Hyposegmented Neuts Cancelled Hypogranular Neuts Cancelled Large Granular Lymphs Cancelled # Lrg Granular Lymphs Cancelled Hairy Cells Cancelled Smudge Cells Cancelled Toxic Granulation Cancelled Toxic Vacuolation Cancelled Dohle Bodies Cancelled Sally Rods Cancelled Platelet Estimate Cancelled Hypogranular Platelets Cancelled Clumped Platelets Cancelled Giant Platelets Cancelled Platelet Satelliting Cancelled RBC Morphology Cancelled Polychromasia Cancelled Hypochromasia Cancelled Poikilocytosis Cancelled Basophilic Stippling Cancelled Anisocytosis Cancelled Microcytosis Cancelled Macrocytosis Cancelled Spherocytes Cancelled Pappenheimer Bodies Cancelled Sickle Cells Cancelled Target Cells Cancelled Tear Drop Cells Cancelled Ovalocytes Cancelled Stomatocytes Cancelled Rodriguez-[place] Bodies Cancelled Echinocytes Cancelled Acanthocytes (Spur) Cancelled Rouleaux Cancelled RBC Agglutinates Cancelled Schistocytes Cancelled RBC Morph Comment Cancelled Sezary Cell Cancelled PT Cancelled INR Cancelled APTT Cancelled PTT Ratio Cancelled Sodium Potassium Chloride Carbon Dioxide Anion Gap BUN Creatinine Est Cr Clr Drug Dosing Est GFR ( Amer) Est GFR (Non-Af Amer) BUN/Creatinine Ratio Glucose POC Glucose (70-99) Calcium Troponin I Medications Administered Current Inpatient Medications Sodium Chloride (Nss 1000ml) 1,000 mls @ 80 mls/hr IV .[id number] Stop: 06/13/19 04:05 Last Admin: 05/14/19 04:39 Dose: 80 mls/hr Documented by: Morphine Sulfate (Roxanol) 5 mg PO Q4H PRN PRN Reason: Breakthrough Pain Stop: 05/28/19 10:14 Last Admin: 05/14/19 11:34 Dose: 5 mg Documented by: Ondansetron HCl (Zofran) 4 mg IV Q6H PRN PRN Reason: Nausea Stop: 06/13/19 04:05 Resident Activity Tracking Resident Involvement: Resident Care Provided Care Provided: Adult Hospital Medicine (1) Syncope Syncope type: unspecified Qualified Code(s): R55 - Syncope and collapse
--- NOTE | 2019-05-14 14:17 | Electroencephalogram ---
EEG Procedure Note Date of Service May 14, 2019 Start / End Times Start Time: 12:15 End Time: 12:35 Referring Physician Gaston Dailey MD History unresponsive, encephalopathy, seizures Home Medication List Home Medications Medication Instructions Recorded Confirmed Type aspirin [Aspirin Low Dose] 81 mg PO QAM 08/11/18 05/14/19 History folic acid 400 mcg PO QAM 08/11/18 05/14/19 History spironolactone 25 mg PO QAM 08/11/18 05/14/19 History ascorbic acid (vitamin C) [Vitamin 500 mg PO QAM 09/07/18 05/14/19 History C] omega [id number] oil [Fish Oil] 1 cap PO QAM 09/07/18 05/14/19 History omeprazole 20 mg PO QAM 09/07/18 05/14/19 History tamsulosin [Flomax] 0.4 mg PO QPM 09/07/18 05/14/19 History Levemir U-100 Insulin 10 unit SUBCUT HS 11/16/18 05/14/19 History Cholestyramine Light 4 g PO BID@1000,2200 #60 ea 01/26/19 05/14/19 Rx amoxicillin 500 mg tablet 2,000 mg PO ONCE PRN tab 02/04/19 05/14/19 History atorvastatin 20 mg tablet 20 mg PO HS 03/03/19 05/14/19 History diclofenac sodium [Voltaren] 1 gm TOPICAL QID PRN 04/01/19 05/14/19 History ferrous sulfate 325 mg PO TID 04/01/19 05/14/19 History multivitamin 1 tab PO DAILY 04/01/19 05/14/19 History oxycodone-acetaminophen 1 tab PO Q6H PRN 04/01/19 05/14/19 History potassium chloride [Klor-Con M20] 20 meq PO DAILY 04/01/19 05/14/19 History prednisone 20 mg PO QAM 04/01/19 05/14/19 History furosemide [Lasix] 20 mg PO QAM #0 tab 04/03/19 05/14/19 Rx lidocaine 1 patch TOP DAILY #30 ea 04/03/19 05/14/19 Rx metoprolol succinate 25 mg 25 mg PO QAM #90 tab 05/04/19 05/14/19 Rx tablet,extended release 24 hr docusate sodium [Stool Softener] 500 mg PO BID 05/14/19 05/14/19 History morphine 15 mg PO TID PRN 05/14/19 05/14/19 History Inpatient Medication List Sodium Chloride (Nss 1000ml) 1,000 mls @ 80 mls/hr IV .[id number] JENNIFFER Stop: 06/13/19 04:05 Last Admin: 05/14/19 04:39 Dose: 80 mls/hr Documented by: [id number] Morphine Sulfate (Roxanol) 5 mg PO Q4H PRN PRN Reason: Breakthrough Pain Stop: 05/28/19 10:14 Last Admin: 05/14/19 11:34 Dose: 5 mg Documented by: [id number] Discontinued Medications Haloperidol Lactate (Haldol) 5 mg IM NOW STA Stop: 05/14/19 08:37 Last Admin: 05/14/19 08:50 Dose: Not Given Documented by: [id number] Haloperidol Lactate (Haldol) Confirm Administered Dose 5 mg .ROUTE .STK-MED ONE Stop: 05/14/19 08:39 Last Admin: 05/14/19 08:48 Dose: 5 mg Documented by: [id number] Levetiracetam 1,000 mg/ (Dextrose) 110 mls @ 440 mls/hr IV 0945 ONE Stop: 05/14/19 09:59 Last Admin: 05/14/19 13:43 Dose: Not Given Documented by: [id number] Description This is a 21 electrode EEG with a single channel dedicated to limited EKG. The electrodes were placed in accordance with the International 10-20 system. The background rhythm consists of poorly organized admixed 10 hertz alpha and 6 hertz theta activity. Photic stimulation is unremarkable. Hyperventilation is not performed. There is fairly continuous movement artifact throughout the study due to patient agitation. No epileptiform abnormalities observed. Interpretation Abnormal awake/drowsy EEG characterized by a poorly organized background rhythm and admixed slowing suggestive of a non-specific encephalopathy of likely moderate severity. Clinical Correlation Non-specific encephalopathy. No evidence for subclinical seizure activity. See today's neurology consultation for additional recommendations. [facility] EEG Procedure Codes Indication for Procedure (1) Seizure: (2) Obtunded: Neurology Neurology: 55210 EEG include record awake & drowsy
--- NOTE | 2019-05-14 18:10 | Billing Data ---
Coding Level of Care Code 87293 Subseq Hosp Care Lvl 3
[2019-05-14] MEDS ORDERED: HALOPERIDOL LACTATE 5 MG/ML 1 ML VIAL IM PRN (18:34)
[2019-05-15] MEDS: MoRPHine SULFATE 5 MG/0.25 ML UDP PO PRN ×3 (02:10→11:16)
[2019-05-15] MEDS: SODIUM CHLORIDE 0.9% 1000ML 1,000 ML IV SCH (05:51)
[2019-05-15 07:01] LABS: Hematocrit (blood only) 33.3 % (42-52); Mean Corpuscular Hemoglobin 32.1 pg (25-34); Mean Corpuscular Volume 97.1 fL (80-100); RDW Coefficient of Variation 16.5 % (11.5-14.5); RDW Standard Deviation 58.4 fL (36.4-46.3); Red Blood Count 3.43 M/uL (4.7-6.1)
[2019-05-15 07:27] LABS: Eosinophils # (auto) 0.03 K/uL (0-0.5); Eosinophils % (auto) 0.5 %; Immature Granulocytes # (auto) 0.06 K/uL (0.00-0.02); Immature Granulocytes % (auto) 1.1 %; Lymphocytes # (auto) 0.64 K/uL (1.2-3.4); Lymphocytes % (auto) 11.6 %; Mean Platelet Volume 10.6 fL (7.4-10.4); Monocytes # (auto) 0.13 K/uL (0.11-0.59); Monocytes % (auto) 2.4 %; Neutrophils # (auto) 4.64 K/uL (1.4-6.5); Neutrophils % (auto) 84.4 %; Platelet Count 89 K/uL (130-400); Platelet Estimate Decreased (Normal)
[2019-05-15 07:46] LABS: BUN Creatinine Ratio 20.8 (10-20); Calcium 8.6 mg/dl (8.5-10.1); Creatinine Clr Calc Pharmacy 110.7 ml/min; Est GFR (African American) 110.8; Est GFR (Non-African American) 95.6; Magnesium 1.9 mg/dl (1.8-2.4); Phosphorus 1.9 mg/dl (2.5-4.9)
--- NOTE | 2019-05-15 12:33 | Hospitalist Progress Note ---
Date of Service May 15, 2019 Assessment & Plan (1) Unresponsive state: Pt is a 69 y/o M with rectal adenocarcinoma, who presented to the emergency room after falling at home and being found my family less responsive than normal. Unresponsive state/Agitation: - ?delirium vs toxic encephalopathy vs concussion vs withdrawal - continued improvement in function today (05/15), able to have superficial recognition of being in the hospital with this provider and minimally conversive with family - initially unresponsive to providers when seen in ER; improved throughout the day on 05/14 able to move all extremities symmetrically, vocal with staff about pain - continuing to improve throughout the day with presence of family members - recognizes family members without stimulation or coaxing into their names; previously had similar episode when was seen at [facility], and family noted at that time it was worse at night when agitated by noises/staff - CT head negative for any acute intracranial abnormalities - EEG demonstrated encephalopathy but no seizure activity - after extensive discussions with family, will hold off on MRI as patient is improving, making stroke induced unresponsiveness less likely, and risk/benefit of having to shut off his ICD is too high for them at this time - Neuro consulted: Miller for baseline seizure prophylaxis given previous seizures post-stroke previously - Phosphorus 1.7 this AM, replacing with Sodium phosphate; will re-check in AM - Patient on Prednisone 20mg daily at home, will start 10mg Solumedrol IV QAM - will have sitter present for overnight stay with family gone Syncope: - likely 2/2 vasovagal response, as patient has baseline rectal pain, and increased rectal pain with bowel movement - patient remains normo to hypotensive throughout the day, likely the continuation of metoprolol and furosemide play a part in these syncopal falls; will have to re-evaluate need for these to be continued as patient improves clinically Diet: will keep NPO as patient continues to clear mentation; on 06/30 NSS @ 80mL/h Supervising Physician Co-Signing Physician Notes I personally examined the patient and verified all vieira points of history and exam, discussed case, and agree with decision making with Dr Diaz. more awake and interactive, still quite confused but "conversationally confused" at times, shakes hand, smiles. family pleased with progress. they do note he actually is on 20mg prednisone daily to prevent nausea Rx'd by oncology vitals noted laying in bed awake and pleasant. heent nc, forehead with egg shaped bruise. neck supple. cardio reg no r/m/g. breathing unlabored no accessory muscles. no focal neuro deficits unresponsive - seems to be delirium - most likely chain of events being syncope (?vagal or hypotension from meds, or combination of both) leading to head trauma (no bleed, but with impact noted more than likely concussion) leading to seizures leading to delirium potentiated by hospital environment. can't rule out toxic as it relates to his pain meds and or potential for pain med withdrawal (but seeming to be less likely - continue careful management with short acting morphine to affect pain control and protect against withdrawal, but lower dosing than normal given possible concern on sedation from pain meds as possible culprit in delirium picture as well). nothing overtly appearing infectious, outside of postictal, nothing else appearing overtly metabolic. continue to follow closely, serial exams, supportive care, but does seem to be improving. seizures - keppra. chronic steroid use - will need to clarify with hematology but family quite reliable with what he's normally on claims he's on 20mg prednisone daily - for now to avoid steroid withdrawal adding to his problems will supplement IV HTN - BPs here running low enough off of his meds that it's quite plausible that some of his repeated bathroom syncope also has a medication related component - continue to hold and follow - only reintroduce if truly necessary as mentation improves hopefully can start to allow to eat - speech ordered; PT/OT eval and treat as quite likely to need SNF/rehab otherwise as above. start heparin SQ for DVT proph Subjective Patient had increased awareness of his surroundings throughout the day, was able to acknowledge or decline if he had pain, continues to recognize family members and after repeat exposures to providers recognizes that they are not a threat and there to help. Family will be unable to stay tonight and would like to continue to have someone available to sit with him overnight. Review of Systems Review of Systems: Unobtainable due to reduced consciousness Physical Exam Constitutional: + altered mental status Eyes: PERRL, conjunctivae normal, anicteric sclerae Respiratory: normal respiratory effort, lungs clear to auscultation Cardiovascular: RRR, no murmur, no edema Gastrointestinal (Abdomen): Inspection/Auscultation: abdomen normal to inspection and normal bowel sounds Percussion/Palpation: + abdomen tender, + guarding and abdomen soft Musculoskeletal: Extremities: extremities normal to inspection Neurologic: CN's II-XI intact bilaterally, moves all extremities, awake and + confused; no focal motor deficits Motor/Sensory: no tremor, normal movement and no fasciculations Results & Data Vital Signs (Past 12 Hours) Vital Signs Temp Pulse Resp BP Pulse Ox 05/15/19 11:05 36.6 C 62 18 94/66 L 98 05/15/19 07:00 36.4 C L 72 18 95/61 L 97 05/15/19 03:02 36.5 C 70 16 136/70 96 Laboratory Results 05/15/19 05/15/19 05/15/19 Range/Units 11:38 07:27 06:42 WBC (4.8-10.8) K/uL RBC (4.7-6.1) M/uL Hgb (14.0-18.0) g/dL Hct (42-52) % MCV (80-100) fL MCH (25-34) pg MCHC (32-36) g/dL RDW Std Deviation (36.4-46.3) fL RDW Coeff of Amandeep (11.5-14.5) % Plt Count (130-400) K/uL MPV (7.4-10.4) fL Immature Gran % (Auto) % Neut % (Auto) % Lymph % (Auto) % Bath % (Auto) % Eos % (Auto) % Baso % (Auto) % Immature Gran # (Auto) (0.00-0.02) K/uL Neut # (Auto) (1.4-6.5) K/uL Lymph # (Auto) (1.2-3.4) K/uL Bath # (Auto) (0.11-0.59) K/uL Eos # (Auto) (0-0.5) K/uL Baso # (Auto) (0-0.2) K/uL Platelet Estimate (Normal) Sodium 138 (136-145) mmol/L Potassium 4.0 (3.5-5.1) mmol/L Chloride 104 (98-107) mmol/L Carbon Dioxide 27 (21-32) mmol/L Anion Gap 7.0 (3-11) BUN 15 (7-18) mg/dl Creatinine 0.70 D (0.6-1.4) mg/dl Est Cr Clr Drug Dosing 110.7 ml/min Est GFR ( Amer) 110.8 Est GFR (Non-Af Amer) 95.6 BUN/Creatinine Ratio 20.8 H (10-20) Glucose 94 (70-99) mg/dl POC Glucose 107 H 100 H (70-99) Calcium 8.6 (8.5-10.1) mg/dl Phosphorus 1.9 L (2.5-4.9) mg/dl Magnesium 1.9 (1.8-2.4) mg/dl 05/15/19 05/14/19 05/14/19 Range/Units 06:42 20:39 16:34 WBC 5.50 (4.8-10.8) K/uL RBC 3.43 L (4.7-6.1) M/uL Hgb 11.0 L (14.0-18.0) g/dL Hct 33.3 L (42-52) % MCV 97.1 (80-100) fL MCH 32.1 (25-34) pg MCHC 33.0 (32-36) g/dL RDW Std Deviation 58.4 H (36.4-46.3) fL RDW Coeff of Amandeep 16.5 H (11.5-14.5) % Plt Count 89 L (130-400) K/uL MPV 10.6 H (7.4-10.4) fL Immature Gran % (Auto) 1.1 % Neut % (Auto) 84.4 % Lymph % (Auto) 11.6 % Bath % (Auto) 2.4 % Eos % (Auto) 0.5 % Baso % (Auto) 0.0 % Immature Gran # (Auto) 0.06 H (0.00-0.02) K/uL Neut # (Auto) 4.64 (1.4-6.5) K/uL Lymph # (Auto) 0.64 L (1.2-3.4) K/uL Bath # (Auto) 0.13 (0.11-0.59) K/uL Eos # (Auto) 0.03 (0-0.5) K/uL Baso # (Auto) 0.00 (0-0.2) K/uL Platelet Estimate Decreased L (Normal) Sodium (136-145) mmol/L Potassium (3.5-5.1) mmol/L Chloride (98-107) mmol/L Carbon Dioxide (21-32) mmol/L Anion Gap (3-11) BUN (7-18) mg/dl Creatinine (0.6-1.4) mg/dl Est Cr Clr Drug Dosing ml/min Est GFR ( Amer) Est GFR (Non-Af Amer) BUN/Creatinine Ratio (10-20) Glucose (70-99) mg/dl POC Glucose 108 H 135 H (70-99) Calcium (8.5-10.1) mg/dl Phosphorus (2.5-4.9) mg/dl Magnesium (1.8-2.4) mg/dl Medications Administered Current Inpatient Medications Haloperidol Lactate (Haldol) 5 mg IM Q12H PRN PRN Reason: Agitation Stop: 06/13/19 18:33 Levetiracetam 500 mg/ Dextrose 105 mls @ 420 mls/hr IV Q12H JENNIFFER; Protocol Stop: 06/13/19 17:59 Last Infusion: 05/15/19 06:12 Dose: Infused Documented by: Sodium Chloride (1/2 Nss) 1,000 mls @ 80 mls/hr IV .[id number] JENNIFFER Stop: 06/14/19 15:44 Methylprednisolone 10 mg/ (Syringe) 0.25 mls @ 1.5 mls/min IV QAM JENNIFFER Stop: 06/15/19 08:59 Morphine Sulfate (Roxanol) 5 mg PO Q4H PRN PRN Reason: Breakthrough Pain Stop: 05/28/19 10:14 Last Admin: 05/15/19 11:16 Dose: 5 mg Documented by: Ondansetron HCl (Zofran) 4 mg IV Q6H PRN PRN Reason: Nausea Stop: 06/13/19 04:05 Sodium Phosphate (Sodium Phosphate Replacement) 21 mmol IV NOW STA Stop: 05/15/19 16:15 Resident Activity Tracking Resident Involvement: Resident Care Provided Care Provided: Adult Hospital Medicine
[2019-05-15] MEDS ORDERED: SODIUM PHOSPHATE 3 MMOL/1 ML INFUSION IV STA (16:14)
[2019-05-15] MEDS: SODIUM CHLORIDE 0.45 % 1,000 ML IV SCH (16:22)
[2019-05-15] MEDS ORDERED: SODIUM PHOSPHATE 21 MMOL in SODIUM CHLORIDE 0.9% 500 ML IV ONE (17:30)
[2019-05-15] MEDS ORDERED: methylPREDNISolone 10 MG in SYRINGE 0 ML IV ONE (18:12)
--- NOTE | 2019-05-15 18:26 | Billing Data ---
Coding Level of Care Code 92575 Subseq Hosp Care Lvl 3
[2019-05-15] MEDS: HEPARIN SOD 5,000 UNIT/0.5 ML VIAL SQ SCH (21:25)
[2019-05-16] MEDS: MoRPHine SULFATE 5 MG/0.25 ML UDP PO PRN ×2 (01:59→08:04)
[2019-05-16] MEDS: SODIUM CHLORIDE 0.45 % 1,000 ML IV SCH (04:55)
[2019-05-16 07:05] LABS: Eosinophils # (auto) 0.03 K/uL (0-0.5); Eosinophils % (auto) 0.4 %; Hematocrit (blood only) 36.3 % (42-52); Hemoglobin 12.1 g/dL (14.0-18.0); Immature Granulocytes # (auto) 0.04 K/uL (0.00-0.02); Immature Granulocytes % (auto) 0.6 %; Lymphocytes # (auto) 0.78 K/uL (1.2-3.4); Lymphocytes % (auto) 11.6 %; Mean Corpuscular Hemoglobin 32.3 pg (25-34); Mean Corpuscular Hgb Conc 33.3 g/dL (32-36); Mean Corpuscular Volume 96.8 fL (80-100); Mean Platelet Volume 10.8 fL (7.4-10.4); Monocytes # (auto) 0.18 K/uL (0.11-0.59); Monocytes % (auto) 2.7 %; Neutrophils # (auto) 5.72 K/uL (1.4-6.5); Neutrophils % (auto) 84.7 %; Platelet Count 102 K/uL (130-400); RDW Coefficient of Variation 16.4 % (11.5-14.5); RDW Standard Deviation 57.9 fL (36.4-46.3); Red Blood Count 3.75 M/uL (4.7-6.1); White Blood Count 6.75 K/uL (4.8-10.8)
[2019-05-16 07:42] LABS: BUN Creatinine Ratio 18.4 (10-20); Calcium 8.7 mg/dl (8.5-10.1); Creatinine Clr Calc Pharmacy 114.2 ml/min; Est GFR (African American) 112.1; Est GFR (Non-African American) 96.8; Magnesium 1.8 mg/dl (1.8-2.4); Potassium 4.3 mmol/L (3.5-5.1)
[2019-05-16 07:43] LABS: Phosphorus 2.6 mg/dl (2.5-4.9)
[2019-05-16] MEDS: HEPARIN SOD 5,000 UNIT/0.5 ML VIAL SQ SCH ×2 (08:04→20:06)
[2019-05-16] MEDS ORDERED: methylPREDNISolone 10 MG in SYRINGE 0 ML IV SCH (09:00)
[2019-05-16 11:02] LABS: iSTAT Arterial Blood Gas HCO3 30 meg/L (19-24); iSTAT Arterial Blood Gas pCO2 79 mmHg (35-46); iSTAT Arterial Blood Gas pH 7.18 (7.35-7.45); iSTAT Arterial Blood Gas pO2 417 mmHg (80-95); iSTAT Carbon Dioxide 32 mEq/l (24-31)
[2019-05-16 11:03] LABS: iSTAT Sample Type Arterial
--- NOTE | 2019-05-16 11:07 | Hospitalist Progress Note ---
Date of Service May 16, 2019 Assessment & Plan (1) Unresponsive state: Pt is a 69 y/o M with rectal adenocarcinoma, who presented to the emergency room after falling at home and being found by family less responsive than normal. With continued improvement of mental status but not at baseline for eating or for mental status as of this afternoon. Unresponsive state/Agitation: - likely due to dehydration, but other possible etiologies include toxic encephalopathy, post seizure, stroke, head trauma/concussion. - CTH negative for acute intracranial abnormalities; MRI deferred due to need to turn off ICD in order to perform test which family was unwilling to do given risk/benefit. - EEG showed encephalopathy however did not show seizure activity, however has a history of seizures post stroke and therefore is on Keppra prophylaxis per neurology recommendations. - Pt's cognitive function appears much improved today, however this is my first time seeing the patient. Given the description of "conversational confusion" from previous notes I believe that the pt has improved, and the pt's family states that he is much brighter and talkative today as well. Pt came in to hospital hypovolemic and hypotensive, which can suggest that his increase in confusion from baseline was due to decreased PO intake. With light fluids pt has improved. - Recognizes family members without stimulation or coaxing into their names; previously had similar episode when was seen at [facility], and family noted at that time it was worse at night when agitated by noises/staff. - Phosphorus 2.6 this AM. - Patient on 10mg Solumedrol IV QAM due to NPO status; NPO was due to confusion and since pt is improving will advance diet to liquid diet (which is pt's baseline at home due to dysphagia) pending speech evaluation. If cleared for PO will switch to PO steroids. Hypotension: - Pt until today has had BPs systolic 90s-110s: with light fluids and discontinuation of his metoprolol, furosemide, spirinolactone, and tamsulosin pt's BP has normalized. Given history of CHF and AFib will restart metoprolol if patient continues to look well and continue to be normotensive today and reevaluate BP in AM. Dysphagia: - Pt told me today that his baseline nutrition is liquid diet due to difficulty swallowing. Had NPO as of this morning due to persistent confusion however as pt seems to be returning to baseline will restart liquid diet following speech evaluation and d/c IV fluids. - Will reassess tomorrow for PO intake and fluid status. Syncope: - likely 2/2 vasovagal response vs. hypovolemia; patient has baseline rectal pain, and increased rectal pain with bowel movement. Pt also came in with low BP's as described above and low volume status. - patient remains normotensive throughout the day. CODE STATUS: Diet: Full Liquid Diet DVT ppx: Lovenox Dispo: med/surg Results & Data Vital Signs (Past 12 Hours) Vital Signs Temp Pulse Resp BP Pulse Ox 05/16/19 07:22 36.3 C L 68 20 135/75 96 05/16/19 03:00 36.6 C 71 16 142/74 H 94 PG Care Time/CCT Total # of Minutes Spent Total Time Spent with Patient: Total time spent is greater than 50% in coordination of care (as documented) at patient's floor/unit and/or counseling patient: Resident Activity Tracking Resident Involvement: Resident Care Provided Care Provided: Adult Hospital Medicine
--- NOTE | 2019-05-16 16:08 | Hospitalist Progress Note ---
Date of Service May 16, 2019 Assessment & Plan (1) Altered mental status: Pt is a 69 y/o M with rectal adenocarcinoma status post radiation and currently on chemotherapy, chronic diarrhea, aortic valve replacement, chronic systolic heart failure with ejection fraction of 30-35%, nonischemic cardiomyopathy, recurrent syncope, ventricular tachycardia status post ICD placement on 01/25/2019, atrial fibrillation not on AC, DM2, BPH, hyperlipidemia, GERD and left MCA territory CVA who presented to the emergency room after falling at home and being found by family less responsive than normal. With continued improvement of mental status but not at baseline for eating or for mental status as of this afternoon. Unresponsive state/Agitation after a fall: - Fall likely syncopal from dehydration. MS change from severe concussion. ? toxic encephalopathy, post seizure, stroke, - CTH negative for acute intracranial abnormalities; MRI deferred due to need to turn off ICD in order to perform test which family was unwilling to do given risk/benefit. - EEG showed encephalopathy however did not show seizure activity, however has a history of seizures post stroke and therefore is on Keppra prophylaxis per neurology recommendations. - Pt's cognitive function appears much improved today, however this is my first time seeing the patient. Given the description of "conversational confusion" from previous notes I believe that the pt has improved, and the pt's family states that he is much brighter and talkative today as well. Pt came in to hospital hypovolemic and hypotensive, which can suggest that his increase in confusion from baseline was due to decreased PO intake. With light fluids pt has improved. - Recognizes family members without stimulation or coaxing into their names; previously had similar episode when was seen at [facility], and family noted at that time it was worse at night when agitated by noises/staff. - PT recommendation 24 hour care at home; walked 12 feet of 300 ft goal for PT. OT recommends inpatient stay for assistance with maintaining goals of care for eventual return home. Appreciate both inputs, will have PT reassess tomorrow as pt's mental status has continued to improve. Family is very concerned that they cannot provide 24 hour care at home which will put the pt at a highly increased risk for falls and injury. Hypotension: - Pt until today has had BPs systolic 90s-110s: with light fluids and discontinuation of his metoprolol, furosemide, spirinolactone, and tamsulosin pt's BP has normalized. Given history of CHF and AFib and normotensive today will restart metoprolol 25mg PO daily if patient continues to look well and will reevaluate BP in AM. - D/c'ed fluids given return to baseline liquid diet. Will assess fluid status in AM tomorrow. Dysphagia: - since being on chemo. has been treated with nystatin recently. - NPO as of this morning due to persistent confusion however as pt seems to be returning to baseline will restart liquid diet following speech evaluation and d/c IV fluids. - Will reassess tomorrow for PO intake and fluid status. - Magic mouthwash q4h PRN odynophagia. Syncope: - likely 2/2 vasovagal response vs. hypovolemia; patient has baseline rectal pain, and increased rectal pain with bowel movement. Pt also came in with low BP's as described above and low volume status. - patient remains normotensive throughout the day today. Atrial fibrillation: - Pt without chest pain or palpitations, continues to be in AFib. - will restart home metoprolol 25mg PO daily. - Pt is on asa 81mg at home however NOT on chronic AC due to previous history of falls and CVA. Rectal cancer - Currently on chemo - Patient was on 10mg Solumedrol IV QAM due to NPO status; NPO was due to co nfusion and since pt is improving will advance diet to liquid diet (which is pt's baseline at home due to dysphagia) pending speech evaluation. Have switched to home prednisone 20mg PO daily. CODE STATUS: DNR/DNI Diet: Full Liquid Diet DVT ppx: Heparin 5000u Q12 Dispo: med/surg (2) Chronic systolic (congestive) heart failure: (3) ICD (implantable cardioverter-defibrillator) in place: (4) Hypokalemia: (5) Obtunded: (6) Syncope: (7) HTN (hypertension): (8) DM type 2 (diabetes mellitus, type 2): (9) Seizure: (10) Afib: Supervising Physician Co-Signing Physician Notes Resident Physician Supervision Note: I independently interviewed and examined the patient and verified the vieira history and physical, reviewed labs and image studies, discussed the case with the resident Dr. Cline and agree with the findings and care plan. Subjective Pt without acute events overnight. More alert today, speaking in full sentences and carrying a conversation with me in room. We discussed that he has throat pain with swallowing certain foods so he often drinks meal replacement shakes for his nutrition at home. Lives with daughter and son. Also spoke with patient's family who discussed with me that they think it would be beneficial for him to go to retirement facility for physical therapy given his deconditioning in the hospital. They believe that he is nearly at his baseline mental status however they report that he still seems to get confused at times. They said he is not on AC therapy for his AFib due to his history of multiple falls. Review of Systems Constitutional: no fever and no chills Ear, Nose, Mouth, Throat: + dysphagia Respiratory: no cough, no dyspnea and no wheezing Cardiovascular: no chest pain and no palpitations Gastrointestinal: no abdominal pain, no constipation and no diarrhea/loose stools Psychiatric: + confusion (per HPI) Physical Exam Constitutional: WD/WN, vitals as above ENMT: external ear and nose normal, oropharynx normal Respiratory: normal respiratory effort, lungs clear to auscultation Cardiovascular: Extremities: + edema (1+ bilateral) heart is irregularly irregular without murmurs. Gastrointestinal (Abdomen): normal bowel sounds, soft, nontender, no hepatosplenomegaly Skin: no rashes, warm and dry Psychiatric: alert, oriented to self, place. Thinks it is late January. Results & Data Vital Signs (Past 12 Hours) Vital Signs Temp Pulse Resp BP Pulse Ox 05/16/19 15:00 36.7 C 78 20 118/78 98 05/16/19 11:30 36.6 C 79 20 122/76 97 05/16/19 07:22 36.3 C L 68 20 135/75 96 Laboratory Results Laboratory Results - last 24 hr 05/14/19 05/15/19 05/15/19 02:32 17:09 20:15 WBC RBC Hgb Hct MCV MCH MCHC RDW Std Deviation RDW Coeff of Amandeep Plt Count MPV Immature Gran % (Auto) Neut % (Auto) Lymph % (Auto) [place] % (Auto) Eos % (Auto) Baso % (Auto) Immature Gran # (Auto) Neut # (Auto) Lymph # (Auto) [place] # (Auto) Eos # (Auto) Baso # (Auto) Specimen Type Arterial POC pH 7.18 L* POC pCO2 79 H POC pO2 417 H POC HCO3 30 H POC Total CO2 32 H POC Base Excess 1.0 POC ABG O2 Sat 100.0 H Sodium Potassium Chloride Carbon Dioxide Anion Gap BUN Creatinine Est Cr Clr Drug Dosing Est GFR ( Amer) Est GFR (Non-Af Amer) BUN/Creatinine Ratio Glucose POC Glucose 89 92 Calcium Phosphorus Magnesium 05/16/19 05/16/19 05/16/19 06:43 06:43 07:22 WBC 6.75 RBC 3.75 L Hgb 12.1 L Hct 36.3 L MCV 96.8 MCH 32.3 MCHC 33.3 RDW Std Deviation 57.9 H RDW Coeff of Amandeep 16.4 H Plt Count 102 L MPV 10.8 H Immature Gran % (Auto) 0.6 Neut % (Auto) 84.7 Lymph % (Auto) 11.6 [place] % (Auto) 2.7 Eos % (Auto) 0.4 Baso % (Auto) 0.0 Immature Gran # (Auto) 0.04 H Neut # (Auto) 5.72 Lymph # (Auto) 0.78 L [place] # (Auto) 0.18 Eos # (Auto) 0.03 Baso # (Auto) 0.00 Specimen Type POC pH POC pCO2 POC pO2 POC HCO3 POC Total CO2 POC Base Excess POC ABG O2 Sat Sodium 140 Potassium 4.3 Chloride 106 Carbon Dioxide 24 Anion Gap 10.0 BUN 13 Creatinine 0.68 Est Cr Clr Drug Dosing 114.2 Est GFR ( Amer) 112.1 Est GFR (Non-Af Amer) 96.8 BUN/Creatinine Ratio 18.4 Glucose 92 POC Glucose 86 Calcium 8.7 Phosphorus 2.6 Magnesium 1.8 05/16/19 11:19 WBC RBC Hgb Hct MCV MCH MCHC RDW Std Deviation RDW Coeff of Amandeep Plt Count MPV Immature Gran % (Auto) Neut % (Auto) Lymph % (Auto) [place] % (Auto) Eos % (Auto) Baso % (Auto) Immature Gran # (Auto) Neut # (Auto) Lymph # (Auto) [place] # (Auto) Eos # (Auto) Baso # (Auto) Specimen Type POC pH POC pCO2 POC pO2 POC HCO3 POC Total CO2 POC Base Excess POC ABG O2 Sat Sodium Potassium Chloride Carbon Dioxide Anion Gap BUN Creatinine Est Cr Clr Drug Dosing Est GFR ( Amer) Est GFR (Non-Af Amer) BUN/Creatinine Ratio Glucose POC Glucose 113 H Calcium Phosphorus Magnesium Medications Administered Current Medications Haloperidol Lactate (Haldol) 5 mg IM Q12H PRN PRN Reason: Agitation Stop: 06/13/19 18:33 Heparin Sodium (Porcine) (Heparin Sodium (Porcine)) 5,000 units SQ Q12 [facility] Stop: 06/14/19 20:59 Last Admin: 05/16/19 08:04 Dose: 5,000 units Documented by: Sodium Chloride (1/2 Nss) 1,000 mls @ 80 mls/hr IV .[id number] [facility] Stop: 06/14/19 15:44 Last Admin: 05/16/19 04:55 Dose: 80 mls/hr Documented by: Levetiracetam (Keppra) 500 mg PO BID [facility] Stop: 06/15/19 20:59 Morphine Sulfate (Roxanol) 5 mg PO Q4H PRN PRN Reason: Breakthrough Pain Stop: 05/28/19 10:14 Last Admin: 05/16/19 08:04 Dose: 5 mg Documented by: Ondansetron HCl (Zofran) 4 mg IV Q6H PRN PRN Reason: Nausea Stop: 06/13/19 04:05 Prednisone (Prednisone) 20 mg PO DAILY [facility] Stop: 06/16/19 08:59 Resident Activity Tracking Resident Involvement: Resident Care Provided Care Provided: Adult Hospital Medicine (1) DM type 2 (diabetes mellitus, type 2) Diabetes mellitus complication status: without complication Diabetes mellitus capacity planning manager insulin use: with mcc use Qualified Code(s): E11.9 - Type 2 diabetes mellitus without complications; Z79.4 - customer support consultant (current) use of insulin (2) Afib Atrial fibrillation type: chronic Qualified Code(s): I48.2 - Chronic atrial fibrillation (3) Syncope Syncope type: unspecified Qualified Code(s): R55 - Syncope and collapse (4) Altered mental status Altered mental status type: unspecified Qualified Code(s): R41.82 - Altered mental status, unspecified (5) HTN (hypertension) Hypertension type: essential hypertension Qualified Code(s): I10 - Essential (primary) hypertension
[2019-05-16] MEDS ORDERED: NYSTATIN 30 ML, DEXAMETHASONE CONC 3.75 MG, DiphenhydrAMINE Syrup 300 MG, ORA-SWEET SYR... PO PRN (16:34)
[2019-05-16] MEDS: levETIRAcetam 500 MG TAB PO SCH (20:06)
[2019-05-17 07:18] LABS: Basophils # (auto) 0.01 K/uL (0-0.2); Basophils % (auto) 0.1 %; Eosinophils # (auto) 0.03 K/uL (0-0.5); Eosinophils % (auto) 0.4 %; Hematocrit (blood only) 33.1 % (42-52); Hemoglobin 11.2 g/dL (14.0-18.0); Immature Granulocytes # (auto) 0.03 K/uL (0.00-0.02); Immature Granulocytes % (auto) 0.4 %; Lymphocytes # (auto) 0.71 K/uL (1.2-3.4); Lymphocytes % (auto) 10.6 %; Mean Corpuscular Hemoglobin 32.2 pg (25-34); Mean Corpuscular Hgb Conc 33.8 g/dL (32-36); Mean Corpuscular Volume 95.1 fL (80-100); Mean Platelet Volume 10.9 fL (7.4-10.4); Monocytes % (auto) 4.5 %; Neutrophils # (auto) 5.59 K/uL (1.4-6.5); Platelet Count 106 K/uL (130-400); RDW Coefficient of Variation 16.5 % (11.5-14.5); Red Blood Count 3.48 M/uL (4.7-6.1); White Blood Count 6.67 K/uL (4.8-10.8)
[2019-05-17 07:46] LABS: BUN Creatinine Ratio 24.8 (10-20); Calcium 8.8 mg/dl (8.5-10.1); Est GFR (African American) 96.1; Est GFR (Non-African American) 82.9; Magnesium 1.7 mg/dl (1.8-2.4); Potassium 3.8 mmol/L (3.5-5.1)
[2019-05-17 07:53] LABS: Phosphorus 3.2 mg/dl (2.5-4.9)
[2019-05-17] MEDS: predniSONE 20 MG TAB PO SCH (08:24)
[2019-05-17] MEDS: levETIRAcetam 500 MG TAB PO SCH ×2 (08:26→20:26)
[2019-05-17] MEDS: HEPARIN SOD 5,000 UNIT/0.5 ML VIAL SQ SCH (08:26)
[2019-05-17] MEDS: METOPROLOL SUCC 25MG EXT REL TAB PO SCH (08:29)
--- NOTE | 2019-05-17 10:11 | XRay Report ---
KUB HISTORY: Acute generalized abdominal pain abdominal pain, guarding on exam COMPARISON: CT abdomen pelvis 04/01/2019 FINDINGS: The bowel gas pattern is non-obstructive. There is no organomegaly. Upper abdominal vascul ar calcifications are redemonstrated without urolith. No pneumoperitoneum or pneumatosis. Cardiomegal y with prior median sternotomy and cardiac valvular prosthesis. Partially imaged pacer/AICD lead of t he lower heart. Degenerative changes of the spine, pelvis and hips. No fracture. IMPRESSION: 1. Nonobstructive bowel gas pattern. 2. No urolith identified. 3. Cardiomegaly. Electronically signed by: Edgar Davis M.D. 05/17/2019 10:10 AM
[2019-05-17] MEDS ORDERED: DOCUSATE SODIUM 100 MG CAP PO ONE (11:50)
[2019-05-17] MEDS: MoRPHine SULFATE 5 MG/0.25 ML UDP PO PRN ×2 (13:36→18:23)
--- NOTE | 2019-05-17 14:01 | Hospitalist Progress Note ---
Date of Service May 17, 2019 Assessment & Plan (1) Syncope: (2) Obtunded: (3) UTI (urinary tract infection): (4) Chronic systolic (congestive) heart failure: (5) ICD (implantable cardioverter-defibrillator) in place: (6) Hypokalemia: (7) Rectal adenocarcinoma: (8) CKD (chronic kidney disease) stage 2, GFR 60-89 ml/min: (9) HLD (hyperlipidemia): (10) HTN (hypertension): (11) DM type 2 (diabetes mellitus, type 2): (12) Seizure: (13) Afib: (14) Pulmonary embolus, right: Pt is a 69 y/o M with rectal adenocarcinoma status post radiation and currently on chemotherapy, chronic diarrhea, aortic valve replacement, chronic systolic heart failure with ejection fraction of 30-35%, nonischemic cardiomyopathy, recurrent syncope, ventricular tachycardia status post ICD placement on 01/25/2019, atrial fibrillation not on AC, DM2, BPH, hyperlipidemia, GERD and left MCA territory CVA who presented to the emergency room after falling at home and being found by family less responsive than normal. Today with abdominal pain and on CT found incidentally to have a large right-sided pulmonary embolism. Pulmonary embolus: - While performing CT Abdomen and Pelvis today it was incidentally noted that pt had: extensive right sided pulmonary embolus. Thrombus is present within the distal right main pulmonary artery this extends into the right middle and right lower pulmonary arteries into the segmental and subsegmental branches." - pt is satting well on room air at this time and denies SOB, CP, palpitations, dizziness. - Had extensive discussion with this patient and his family about the need for anticoagulation to prevent spread of the PE. As this patient is a Gnosticist and will not accept blood products should he need them we chose Heparin as it is reversible. Pt has a history of rectal bleeding on AC which is why he was only on aspirin 81mg at home. UTI: - Pt complaining of lower abdominal pain. Has a history of prior UTI with pansensitive E. coli. - CT Abdomen/Pelvis showed inflammation of the bladder suggestive of cystitis, no other acute process which would explain abdominal pain. UA positive for bacteria, LE, nitrites. - Have started on Rocephin 2g IV daily and will deescalate antibiotics as sensit ivities come. Unresponsive state/Agitation after a fall: - Fall likely syncopal from vasovagal response (decrease PO intake and rectal pain with BM) however it is possible that his syncope was a result of his large PE which was just discovered on imaging. - CTH negative for acute intracranial abnormalities; MRI deferred due to need to turn off ICD in order to perform test which family was unwilling to do given risk/benefit. - EEG showed encephalopathy however did not show seizure activity, however has a history of seizures post stroke and therefore is on Keppra prophylaxis per neurology recommendations. - Pt's mental status is similar to yesterday however is complaining of abdominal pain which he localizes to the left lower side. - CT Abdomen/Pelvis showed inflammation of the bladder suggestive of cystitis. UA positive for bacteria, LE, nitrites. - Recognizes family members without stimulation or coaxing into their names; previously had similar episode when was seen at [facility], and family noted at that time it was worse at night when agitated by noises/staff. - PT recommendation 24 hour care at home; walked 12 feet of 300 ft goal for PT. OT recommends inpatient stay for assistance with maintaining goals of care for eventual return home. Appreciate both inputs, will have PT reassess tomorrow as pt's mental status has continued to improve. Family is very concerned that they cannot provide 24 hour care at home which will put the pt at a highly increased risk for falls and injury. Hypotension: - Pt until today has had BPs systolic 90s-110s: with light fluids and discontinuation of his metoprolol, furosemide, spirinolactone, and tamsulosin pt's BP has normalized. Given history of CHF and AFib and normotensive today will restart metoprolol 25mg PO daily if patient continues to look well and will reevaluate BP in AM. - D/c'ed fluids given return to baseline liquid diet. Will assess fluid status in AM tomorrow. Odynophagia: - Since being on chemo; has been treated with nystatin recently. Receiving magic mouthwash here q4h PRN odynophagia. - Pt's PO intake was very minimal today due to throat and abdominal pain. Have added light fluids LR @80mL/hr, 1 bag. Atrial fibrillation: - Pt without chest pain or palpitations, continues to be in AFib. - will restart home metoprolol 25mg PO daily. - Pt is on asa 81mg at home however NOT on chronic AC due to previous history of falls and CVA. Rectal cancer - Currently on chemo - Continue home prednisone 20mg PO daily. CODE STATUS: DNR/DNI, NO BLOOD PRODUCTS. PT Gnosticist Diet: Full Liquid Diet DVT ppx: Heparin drip for acute PE Dispo: med/surg Supervising Physician Co-Signing Physician Notes Resident Physician Supervision Note: I independently interviewed and examined the patient and verified the vieira history and physical, reviewed labs and image studies, discussed the case with the resident Dr. Cline and agree with the findings and care plan. Subjective Pt reports this morning that he had abdominal pain overnight and into today. Improved with morphine. No nausea or vomiting. No fevers or chills. Had one BM today. Is on colace at home twice daily for constipation. Nursing reports that his urine is very dark and cloudy. No SOB, CP. 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 On colace twice daily for constipation and has a history of severe rectal pain with BM which pt describes as different from his current abdominal pain. Physical Exam Constitutional: + ill appearing Respiratory: normal respiratory effort, lungs clear to auscultation Cardiovascular: heart is irregularly irregular without murmurs. 1+ edema bilateral LE. Gastrointestinal (Abdomen): LLQ TTP, abdomen soft but with guarding. Skin: no rashes, warm and dry Psychiatric: Orientation: alert oriented to self, place, but not to time. Recognizes me when I come in the room. Recognizes all family members. Genitourinary: Visualization of urine sample is dark and cloudy. Results & Data Vital Signs (Past 12 Hours) Vital Signs Temp Pulse Resp BP Pulse Ox 05/17/19 11:55 36.2 C L 75 24 117/72 99 05/17/19 07:41 36.4 C L 71 16 127/82 95 05/17/19 04:21 36.6 C 66 16 128/74 93 Laboratory Results Laboratory Results - last 24 hr 05/16/19 05/17/19 05/17/19 20:00 06:48 06:48 WBC 6.67 RBC 3.48 L Hgb 11.2 L Hct 33.1 L MCV 95.1 MCH 32.2 MCHC 33.8 RDW Std Deviation 57.0 H RDW Coeff of Amandeep 16.5 H Plt Count 106 L MPV 10.9 H Immature Gran % (Auto) 0.4 Neut % (Auto) 84.0 Lymph % (Auto) 10.6 Harding % (Auto) 4.5 Eos % (Auto) 0.4 Baso % (Auto) 0.1 Immature Gran # (Auto) 0.03 H Neut # (Auto) 5.59 Lymph # (Auto) 0.71 L Harding # (Auto) 0.30 Eos # (Auto) 0.03 Baso # (Auto) 0.01 Sodium 138 Potassium 3.8 Chloride 101 Carbon Dioxide 26 Anion Gap 11.0 BUN 23 H D Creatinine 0.93 Est Cr Clr Drug Dosing 84.0 Est GFR ( Amer) 96.1 Est GFR (Non-Af Amer) 82.9 BUN/Creatinine Ratio 24.8 H Glucose 152 H POC Glucose 183 H Calcium 8.8 Phosphorus 3.2 Magnesium 1.7 L Urine Color Urine Appearance Urine pH Ur Specific Katy Urine Protein Urine Glucose (UA) Urine Ketones Urine Blood Urine Nitrite Urine Bilirubin Urine Urobilinogen Ur Leukocyte Esterase Urine WBC (Auto) Urine RBC (Auto) U Hyaline Cast (Auto) U Epithel Cells (Auto) Urine Bacteria (Auto) 05/17/19 05/17/19 05/17/19 07:23 11:48 14:00 WBC RBC Hgb Hct MCV MCH MCHC RDW Std Deviation RDW Coeff of Amandeep Plt Count MPV Immature Gran % (Auto) Neut % (Auto) Lymph % (Auto) Harding % (Auto) Eos % (Auto) Baso % (Auto) Immature Gran # (Auto) Neut # (Auto) Lymph # (Auto) Harding # (Auto) Eos # (Auto) Baso # (Auto) Sodium Potassium Chloride Carbon Dioxide Anion Gap BUN Creatinine Est Cr Clr Drug Dosing Est GFR ( Amer) Est GFR (Non-Af Amer) BUN/Creatinine Ratio Glucose POC Glucose 169 H 184 H Calcium Phosphorus Magnesium Urine Color Dark Yellow Urine Appearance Cloudy A Urine pH 5.0 Ur Specific Katy 1.025 Urine Protein 2+ H Urine Glucose (UA) Negative Urine Ketones 1+ H Urine Blood Trace H Urine Nitrite Positive A Urine Bilirubin Negative Urine Urobilinogen Negative Ur Leukocyte Esterase 1+ H Urine WBC (Auto) >30 H Urine RBC (Auto) 0-4 U Hyaline Cast (Auto) 0 U Epithel Cells (Auto) 10-20 H Urine Bacteria (Auto) 4+ H 05/17/19 16:19 WBC RBC Hgb Hct MCV MCH MCHC RDW Std Deviation RDW Coeff of Amandeep Plt Count MPV Immature Gran % (Auto) Neut % (Auto) Lymph % (Auto) Harding % (Auto) Eos % (Auto) Baso % (Auto) Immature Gran # (Auto) Neut # (Auto) Lymph # (Auto) Harding # (Auto) Eos # (Auto) Baso # (Auto) Sodium Potassium Chloride Carbon Dioxide Anion Gap BUN Creatinine Est Cr Clr Drug Dosing Est GFR ( Amer) Est GFR (Non-Af Amer) BUN/Creatinine Ratio Glucose POC Glucose 170 H Calcium Phosphorus Magnesium Urine Color Urine Appearance Urine pH Ur Specific Katy Urine Protein Urine Glucose (UA) Urine Ketones Urine Blood Urine Nitrite Urine Bilirubin Urine Urobilinogen Ur Leukocyte Esterase Urine WBC (Auto) Urine RBC (Auto) U Hyaline Cast (Auto) U Epithel Cells (Auto) Urine Bacteria (Auto) Diagnostic Findings CT Abdomen Pelvis 05/17/19: IMPRESSION: 1. Extensive right-sided pulmonary embolus. 2. Marked cardiomegaly. 3. There is a 1.4 cm perfusion defect in the upper pole of the left kidney. This is new from 04/01/2019 and consistent with a small renal infarct. 4. Findings suggest cystitis. Correlation with clinical findings and urinalysis will be required. 5. Liquid stool is seen throughout the colon. Correlate clinically for evidence of a diarrheal illness. 6. Question subcutaneous gas in the left perineal region inferior to the left gluteal crease. This is only partially visualized and could represent a skinfold. Correlate clinically for evidence of a decubitus ulcer. 7. There is aneurysmal dilatation of the aortic root which measures up to 4.8 cm. This is similar in appearance to previous. 8. There is enlarged lymph node in the central pelvic mesentery of indeterminant etiology and significance. 9. Question wall thickening of the distal stomach and duodenum. Correlate clinically for evidence of gastritis/duodenitis. Medications Administered Current Medications Nystatin 30 ml/ Dexamethasone 3.75 mg/ Diphenhydramine HCl 300 mg/ Sucrose 45 ml/Microcrystalline Cellulose 45 ml/ BARCODE IDENTIFIER 1 ea 0 ml PO Q4H PRN PRN Reason: Pain Stop: 06/15/19 16:33 Docusate Sodium (Colace) 100 mg PO BID [facility] Stop: 06/16/19 20:59 Haloperidol Lactate (Haldol) 5 mg IM Q12H PRN PRN Reason: Agitation Stop: 06/13/19 18:33 Lactated Ringer's (Lr) 1,000 mls @ 80 mls/hr IV .[id number] [facility] Stop: 05/18/19 02:44 Last Admin: 05/17/19 16:26 Dose: 80 mls/hr Documented by: Heparin Sodium/Dextrose (Heparin Sodium/Dextrose) 25,000 units in 500 mls @ 29 mls/hr IV .[id number] [facility]; Protocol Stop: 06/16/19 15:59 Last Admin: 05/17/19 16:30 Dose: 1,450 units/hr, 29 mls/hr Documented by: Ceftriaxone Sodium 2,000 mg/ (Dextrose) 70 mls @ 140 mls/hr IV Q24H [facility]; Protocol Stop: 05/27/19 17:59 Ioversol (Optiray 320 100ml) 89 ml IV ONCE PRN PRN Reason: Interaction Checking Stop: 05/21/19 14:45 Last Admin: 05/17/19 14:48 Dose: 89 ml Documented by: Levetiracetam (Keppra) 500 mg PO BID [facility] Stop: 06/15/19 20:59 Last Admin: 05/17/19 08:26 Dose: 500 mg Documented by: Metoprolol Succinate (Toprol Xl) 25 mg PO QAM [facility] Stop: 06/16/19 08:59 Last Admin: 05/17/19 08:29 Dose: 25 mg Documented by: Morphine Sulfate (Roxanol) 5 mg PO Q4H PRN PRN Reason: Breakthrough Pain Stop: 05/28/19 10:14 Last Admin: 05/17/19 13:36 Dose: 5 mg Documented by: Ondansetron HCl (Zofran) 4 mg IV Q6H PRN PRN Reason: Nausea Stop: 06/13/19 04:05 Prednisone (Prednisone) 20 mg PO DAILY [facility] Stop: 06/16/19 08:59 Last Admin: 05/17/19 08:24 Dose: 20 mg Documented by: Tamsulosin HCl (Flomax) 0.4 mg PO HS [facility] Stop: 06/16/19 20:59 Resident Activity Tracking Resident Involvement: Resident Care Provided Care Provided: Adult Hospital Medicine (1) UTI (urinary tract infection) Hematuria presence: without hematuria Urinary tract infection type: site unspecified Qualified Code(s): N39.0 - Urinary tract infection, site not specified (2) DM type 2 (diabetes mellitus, type 2) Diabetes mellitus complication status: without complication Diabetes mellitus correction insulin use: with correction use Qualified Code(s): E11.9 - Type 2 diabetes mellitus without complications; 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
[2019-05-17] MEDS ORDERED: LACTATED RINGER'S 1,000 ML IV SCH (14:15)
[2019-05-17] MEDS ORDERED: IOVERSOL 100ml IV PRN (14:46)
--- NOTE | 2019-05-17 15:09 | CT Scan Report ---
CT SCAN OF THE ABDOMEN AND PELVIS WITH IV CONTRAST CLINICAL HISTORY: Generalized abdominal pain. COMPARISON STUDY: Abdominal CT dated 04/01/2019. Chest CT dated 04/01/2019. TECHNIQUE: Following the IV administration of 89 cc of Optiray 320, CT scan of the abdomen and pelv is is performed from the lung bases to the proximal femora. Images are reviewed in the axial, sagitta l, and coronal planes. IV contrast was administered without complication. Oral contrast was utilized. A dose lowering technique was utilized adhering to the principles of ALARA. CT DOSE: 999.39 mGy.cm FINDINGS: Lung bases: The patient is status post midline sternotomy. The heart is markedly enlarged and without pericardial effusion. Pacemaker leads are noted. The coronary arteries are densely calcified. There is aneurysmal dilatation of the aortic root which measures up to 4.8 cm. Scarring/atelectasis is pres ent at the lung bases. There are scattered calcified granulomas. No airspace consolidation or pleural effusion is identified. There is extensive right sided pulmonary embolus. Thrombus is present within the distal right main pulmonary artery this extends into the right middle and right lower pulmonary arteries into the segmental and subsegmental branches. Liver: The contrast-enhanced liver is normal in size, contour, and attenuation. There is no intrahepa tic biliary ductal dilatation. The hepatic veins and portal veins are patent. Gallbladder: Unremarkable. Spleen: Normal in size and attenuation. Pancreas: Atrophic and grossly unremarkable. Adrenal glands: There is nodular thickening of the adrenal gland. Kidneys: The contrast enhanced kidneys are atrophic and without hydronephrosis. The kidneys enhance s ymmetrically. 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 There is a 1.4 cm perfusion defect identified in the upper pole of the left kidney on image #208. This is new from 04/01/2019 and consistent with a small renal infarct. Abdominal vasculature: The abdominal aorta is normal in course and caliber noting moderate to advance d atherosclerotic calcification. Bowel: Question wall thickening of the distal stomach and duodenum. Liquid stool is seen throughout t he colon. There is no significant colonic wall thickening or pericolonic inflammation. No bowel obstr uction is identified. Enteric contrast reaches the distal small bowel. The appendix is not visualize d. Peritoneum: There is no intraperitoneal free air or abdominal ascites. Lymphadenopathy: There is an enlarged mesenteric lymph node in the central pelvis on image #349. This measures 2.0 x 1.4 cm. Pelvic viscera: The prostate gland is diminutive and heterogeneous. The bladder wall is markedly thic kened and hyperemic. There is pericystic inflammation. Fatty reconversion is noted along the left ing uinal canal. Question subcutaneous gas versus a skinfold in the left perineal soft tissues inferior t o the gluteal crease on image #506. There is no significant surrounding inflammation. Skeletal structures: The skeletal structures are osteopenic. Moderate to advanced lumbosacral spondyl osis is observed. No lytic or blastic lesions are seen. IMPRESSION: 1. Extensive right-sided pulmonary embolus. 2. Marked cardiomegaly. 3. There is a 1.4 cm perfusion defect in the upper pole of the left kidney. This is new from and consistent with a small renal infarct. 4. Findings suggest cystitis. Correlation with clinical findings and urinalysis will be required. 5. Liquid stool is seen throughout the colon. Correlate clinically for evidence of a diarrheal illnes s. 6. Question subcutaneous gas in the left perineal region inferior to the left gluteal crease. This is only partially visualized and could represent a skinfold. Correlate clinically for evidence of a dec ubitus ulcer. 7. There is aneurysmal dilatation of the aortic root which measures up to 4.8 cm. This is similar in appearance to previous. 8. There is enlarged lymph node in the central pelvic mesentery of indeterminant etiology and signifi cance. 9. Question wall thickening of the distal stomach and duodenum. Correlate clinically for evidence of gastritis/duodenitis. 10. Additional findings as above. Electronically signed by: Denzel Quarles M.D. 05/17/2019 3:08 PM
[2019-05-17 15:45] LABS: Appearance Urine Cloudy (Clear); Bacteria Urine Automated 4+ (Negative); Blood Urine Trace (Negative); Color Urine Dark Yellow; Glucose Urine UA Negative (Negative); Ketones Urine 1+ (Negative); Leukocyte Esterase Urine 1+ (Negative); Nitrite Urine Positive (Negative); Protein Urine 2+ (Negative); Specific Gravity Urine 1.025 (1.000-1.030); Urobilinogen Urine Negative (Negative); WBC Urine Automated >30 /hpf (0-5)
[2019-05-17] MEDS ORDERED: Heparin IV Standard *NO* Bolus ONE (15:48)
[2019-05-17 16:23] LABS: Bilirubin Urine Negative (Negative); Ictotest Urine Negative (Negative)
[2019-05-17] MEDS: HEPARIN SODIUM/DEXTROSE 25,000 UNITS/500 ML BAG IV SCH (16:30)
[2019-05-17 16:34] LABS: Cast Urine Automated 0 /lpf (0-5); RBC Urine Automated 0-4 /hpf (0-4)
[2019-05-17] MEDS ORDERED: MAGNESIUM SULFATE / D5W 1 GM/100 ML BAG IV ONE (18:15)
[2019-05-17] MEDS: cefTRIAXone SODIUM 2,000 MG in DEXTROSE 5% 50 ML IV SCH (18:15)
[2019-05-17] MEDS: TAMSULOSIN HCL 0.4 MG CAP PO SCH (20:26)
[2019-05-17] MEDS: DOCUSATE SODIUM 100 MG CAP PO SCH (20:26)
[2019-05-17] MEDS ORDERED: GLUCOSE 40% GEL 15 GM TUBE PO PRN (21:45)
[2019-05-17] MEDS ORDERED: GLUCOSE 10 TABS/TUBE PO PRN (21:45)
[2019-05-17] MEDS ORDERED: DEXTROSE 50% 50 ML SYRINGE IV PRN (21:45)
[2019-05-17] MEDS ORDERED: CARBOHYDRATES FOR HYPOGLYCEMIA PO PRN (21:45)
[2019-05-17] MEDS ORDERED: GLUCAGON FOR INJ 1 MG VIAL IM PRN (21:45)
[2019-05-17] MEDS: INSULIN ASPART 100 UNITS/ML 3 ML PEN SC SCH (22:24)
[2019-05-17 22:48] LABS: Partial Thromboplastin Ratio 1.8
[2019-05-17 22:56] LABS: Partial Thromboplastin Time 49.1 Seconds (21.0-31.0)
[2019-05-18] MEDS: MoRPHine SULFATE 5 MG/0.25 ML UDP PO PRN ×4 (02:03→17:29)
[2019-05-18 06:35] LABS: Eosinophils # (auto) 0.01 K/uL (0-0.5); Eosinophils % (auto) 0.1 %; Hematocrit (blood only) 33.2 % (42-52); Hemoglobin 11.2 g/dL (14.0-18.0); Immature Granulocytes # (auto) 0.03 K/uL (0.00-0.02); Immature Granulocytes % (auto) 0.4 %; Lymphocytes % (auto) 10.1 %; Mean Corpuscular Hemoglobin 31.8 pg (25-34); Mean Corpuscular Hgb Conc 33.7 g/dL (32-36); Mean Corpuscular Volume 94.3 fL (80-100); Mean Platelet Volume 11.4 fL (7.4-10.4); Monocytes # (auto) 0.47 K/uL (0.11-0.59); Monocytes % (auto) 6.8 %; Neutrophils # (auto) 5.69 K/uL (1.4-6.5); Neutrophils % (auto) 82.6 %; Platelet Count 127 K/uL (130-400); RDW Coefficient of Variation 16.4 % (11.5-14.5); RDW Standard Deviation 56.2 fL (36.4-46.3); Red Blood Count 3.52 M/uL (4.7-6.1)
[2019-05-18 06:56] LABS: Partial Thromboplastin Time 134.3 Seconds (21.0-31.0)
[2019-05-18 07:12] LABS: BUN Creatinine Ratio 27.3 (10-20); Calcium 8.6 mg/dl (8.5-10.1); Creatinine Clr Calc Pharmacy 108.7 ml/min; Est GFR (African American) 109.5; Est GFR (Non-African American) 94.5
[2019-05-18] MEDS: INSULIN ASPART 100 UNITS/ML 3 ML PEN SC SCH ×4 (08:32→21:33)
[2019-05-18] MEDS: POTASSIUM CHLORIDE / WTR 10 MEQ/100 ML PLCT IV SCH ×4 (08:32→11:35)
[2019-05-18] MEDS: DOCUSATE SODIUM 100 MG CAP PO SCH (08:32)
[2019-05-18] MEDS: levETIRAcetam 500 MG TAB PO SCH ×2 (08:36→20:42)
[2019-05-18] MEDS: predniSONE 20 MG TAB PO SCH (08:36)
[2019-05-18 08:41] LABS: Partial Thromboplastin Ratio 1.1
[2019-05-18] MEDS: METOPROLOL SUCC 25MG EXT REL TAB PO SCH (08:45)
[2019-05-18] MEDS ORDERED: Nursing to Pharmacy Communication ONE ×2 (08:56→09:35)
--- NOTE | 2019-05-18 11:27 | Hospitalist Progress Note ---
Date of Service May 18, 2019 Assessment & Plan (1) Pulmonary embolus, right: Pt is a 69 y/o M with rectal adenocarcinoma status post radiation and currently on chemotherapy, chronic diarrhea, aortic valve replacement, chronic systolic heart failure with ejection fraction of 30-35%, nonischemic cardiomyopathy, recurrent syncope, ventricular tachycardia status post ICD placement on 01/25/2019, atrial fibrillation not on AC, DM2, BPH, hyperlipidemia, GERD and left MCA territory CVA who presented to the emergency room after falling at home and being found by family less responsive than normal. Pulmonary embolus: - CT Abdomen and Pelvis yesterday noted extensive right sided pulmonary embolus - pt continues to saturate well on room air at this time and denies SOB, CP, palpitations, dizziness. However endorses more fatigue today. - Had extensive discussion with this patient and his family about the how both the PE and the treatment for the PE (Heparin at this time) can lead to fatal bleeding. Because the patient is a [employer] and will not accept blood products, we cannot improve his Hgb should it drop to critical levels. - will continue heparin drip. Rectal bleeding - Pt had a large bought of bloody diarrhea this AM. PTT checked at port site during heparin infusion was found to be 134 and drip was stopped. Peripheral sample was checked which showed PTT of 30 and drip restarted. Hgb has been stable at 11.4. Have ordered repeat H/H's and will continue heparin drip at this time. - GI, Radiation oncology consulted. GI recommended sigmoidoscopy to assess the rectal cancer for palliative radiation to reduce bleeding. Too high risk for anesthesia. Patient declined procedure without anesthesia. - closely follow h/h. UTI: - Pt complaining of lower abdominal pain yesterday which is much resolved today. Has a history of prior UTI with pansensitive E. coli. - CT Abdomen/Pelvis showed inflammation of the bladder suggestive of cystitis, no other acute process which would explain abdominal pain. UA positive for bacteria, LE, nitrites. - Have started on Rocephin 2g IV daily and will deescalate antibiotics as sensitivities come. UCx pending. Unresponsive state/Agitation after syncopal event: - MS change likely from severe head injury/concussion - syncope likely from underlying PE - CTH negative for acute intracranial abnormalities; MRI deferred due to need to turn off ICD in order to perform test which family was unwilling to do given risk/benefit. - EEG showed encephalopathy however did not show seizure activity, however has a history of seizures post stroke and therefore is on Keppra prophylaxis per neurology recommendations. - Much improved mentation. Hypotension: - Likely due to decreased PO intake, has been normotensive today. - Have ordered LR @80mL/hr x1 bag. - Encourage PO intake. Odynophagia: - Since being on chemo; has been treated with nystatin recently. Receiving magic mouthwash here q4h PRN odynophagia. - Pt's PO intake was very minimal today. Light fluids LR @80mL/hr, 1 bag. Atrial fibrillation: - Pt without chest pain or palpitations, continues to be in AFib. - Pt on home metoprolol. - Pt is on asa 81mg at home however NOT on chronic AC due to previous history of falls and CVA. Holding asa currently. Rectal cancer - Currently on chemo Pancytopenia due to chemotherapy - Continue home prednisone 20mg PO daily. CODE STATUS: DNR/DNI, NO BLOOD PRODUCTS. PT is a [employer] Diet: Full Liquid Diet, LR @ 80 mL/hr x1bag DVT ppx: Heparin drip for acute PE Dispo: med/surg with tele (2) Rectal bleed: (3) UTI (urinary tract infection): (4) Chronic systolic (congestive) heart failure: (5) ICD (implantable cardioverter-defibrillator) in place: (6) Hypokalemia: (7) CKD (chronic kidney disease) stage 2, GFR 60-89 ml/min: (8) Rectal adenocarcinoma: (9) Aortic stenosis: (10) Nonischemic cardiomyopathy: (11) HLD (hyperlipidemia): (12) HTN (hypertension): (13) DM type 2 (diabetes mellitus, type 2): (14) Seizure: Supervising Physician Co-Signing Physician Notes Resident Physician Supervision Note: I independently interviewed and examined the patient and verified the vieira history and physical, reviewed labs and image studies, discussed the case with the resident Dr. Cline and agree with the findings and care plan. Subjective Pt with episode of large bloody diarrhea this morning. Feels more tired today. Mental status seems to be back to baseline. PTT reading overnight was 134 but was taken from the port; repeat test at peripheral site was 30. Review of Systems Constitutional: + fatigue; no fever and no chills Ear, Nose, Mouth, Throat: sore throat doing better today Respiratory: no cough, no dyspnea and no wheezing Cardiovascular: no chest pain, no palpitations and no edema Gastrointestinal: + abdominal pain (improved from yesterday), + diarrhea/loose stools and + blood in stools; no nausea, no vomiting and no constipation Physical Exam Constitutional: WD/WN, vitals as above Respiratory: normal respiratory effort, lungs clear to auscultation Cardiovascular: RRR, no murmur, no edema Gastrointestinal (Abdomen): normal bowel sounds, soft, nontender, no hepatosplenomegaly Skin: no rashes, warm and dry Psychiatric: Orientation: alert oriented to self, place, time, but not to situation. Seems somewhat unaware of seriousness of his condition. Results & Data Vital Signs (Past 12 Hours) Vital Signs Temp Pulse Resp BP Pulse Ox 05/18/19 11:13 36.6 C 79 18 119/84 98 05/18/19 08:44 36.4 C L 84 16 120/73 94 05/18/19 04:50 36.4 C L 74 18 109/65 97 05/17/19 23:37 36.3 C L 50 L 17 104/55 L 96 Laboratory Results Laboratory Results - last 24 hr 05/17/19 05/17/19 05/17/19 14:00 16:19 19:59 WBC RBC Hgb Hct MCV MCH MCHC RDW Std Deviation RDW Coeff of Amandeep Plt Count MPV Immature Gran % (Auto) Neut % (Auto) Lymph % (Auto) [place] % (Auto) Eos % (Auto) Baso % (Auto) Immature Gran # (Auto) Neut # (Auto) Lymph # (Auto) [place] # (Auto) Eos # (Auto) Baso # (Auto) APTT PTT Ratio Sodium Potassium Chloride Carbon Dioxide Anion Gap BUN Creatinine Est Cr Clr Drug Dosing Est GFR ( Amer) Est GFR (Non-Af Amer) BUN/Creatinine Ratio Glucose POC Glucose 170 H 221 H Calcium Urine Color Dark Yellow Urine Appearance Cloudy A Urine pH 5.0 Ur Specific [place] 1.025 Urine Protein 2+ H Urine Glucose (UA) Negative Urine Ketones 1+ H Urine Blood Trace H Urine Nitrite Positive A Urine Bilirubin Negative Urine Urobilinogen Negative Ur Leukocyte Esterase 1+ H Urine WBC (Auto) >30 H Urine RBC (Auto) 0-4 U Hyaline Cast (Auto) 0 U Epithel Cells (Auto) 10-20 H Urine Bacteria (Auto) 4+ H 05/17/19 05/17/19 05/18/19 22:12 22:20 06:06 WBC 6.90 RBC 3.52 L Hgb 11.2 L Hct 33.2 L MCV 94.3 MCH 31.8 MCHC 33.7 RDW Std Deviation 56.2 H RDW Coeff of Amandeep 16.4 H Plt Count 127 L MPV 11.4 H Immature Gran % (Auto) 0.4 Neut % (Auto) 82.6 Lymph % (Auto) 10.1 [place] % (Auto) 6.8 Eos % (Auto) 0.1 Baso % (Auto) 0.0 Immature Gran # (Auto) 0.03 H Neut # (Auto) 5.69 Lymph # (Auto) 0.70 L [place] # (Auto) 0.47 Eos # (Auto) 0.01 Baso # (Auto) 0.00 APTT 49.1 H* PTT Ratio 1.8 Sodium Potassium Chloride Carbon Dioxide Anion Gap BUN Creatinine Est Cr Clr Drug Dosing Est GFR ( Amer) Est GFR (Non-Af Amer) BUN/Creatinine Ratio Glucose POC Glucose 206 H Calcium Urine Color Urine Appearance Urine pH Ur Specific [place] Urine Protein Urine Glucose (UA) Urine Ketones Urine Blood Urine Nitrite Urine Bilirubin Urine Urobilinogen Ur Leukocyte Esterase Urine WBC (Auto) Urine RBC (Auto) U Hyaline Cast (Auto) U Epithel Cells (Auto) Urine Bacteria (Auto) 05/18/19 05/18/19 05/18/19 06:06 06:06 07:55 WBC RBC Hgb Hct MCV MCH MCHC RDW Std Deviation RDW Coeff of Amandeep Plt Count MPV Immature Gran % (Auto) Neut % (Auto) Lymph % (Auto) [place] % (Auto) Eos % (Auto) Baso % (Auto) Immature Gran # (Auto) Neut # (Auto) Lymph # (Auto) [place] # (Auto) Eos # (Auto) Baso # (Auto) APTT 134.3 H* PTT Ratio 5.0 Sodium 138 Potassium 3.0 L D Chloride 101 Carbon Dioxide 29 Anion Gap 8.0 BUN 20 H Creatinine 0.72 Est Cr Clr Drug Dosing 108.7 Est GFR ( Amer) 109.5 Est GFR (Non-Af Amer) 94.5 BUN/Creatinine Ratio 27.3 H Glucose 158 H POC Glucose 157 H Calcium 8.6 Urine Color Urine Appearance Urine pH Ur Specific [place] Urine Protein Urine Glucose (UA) Urine Ketones Urine Blood Urine Nitrite Urine Bilirubin Urine Urobilinogen Ur Leukocyte Esterase Urine WBC (Auto) Urine RBC (Auto) U Hyaline Cast (Auto) U Epithel Cells (Auto) Urine Bacteria (Auto) 05/18/19 05/18/19 05/18/19 08:18 11:47 11:56 WBC 6.03 RBC 3.52 L Hgb 11.4 L Hct 33.5 L MCV 95.2 MCH 32.4 MCHC 34.0 RDW Std Deviation 56.7 H RDW Coeff of Amandeep 16.6 H Plt Count 113 L MPV 10.4 Immature Gran % (Auto) Neut % (Auto) Lymph % (Auto) [place] % (Auto) Eos % (Auto) Baso % (Auto) Immature Gran # (Auto) Neut # (Auto) Lymph # (Auto) [place] # (Auto) Eos # (Auto) Baso # (Auto) APTT 30.0 PTT Ratio 1.1 Sodium Potassium Chloride Carbon Dioxide Anion Gap BUN Creatinine Est Cr Clr Drug Dosing Est GFR ( Amer) Est GFR (Non-Af Amer) BUN/Creatinine Ratio Glucose POC Glucose 161 H Calcium Urine Color Urine Appearance Urine pH Ur Specific [place] Urine Protein Urine Glucose (UA) Urine Ketones Urine Blood Urine Nitrite Urine Bilirubin Urine Urobilinogen Ur Leukocyte Esterase Urine WBC (Auto) Urine RBC (Auto) U Hyaline Cast (Auto) U Epithel Cells (Auto) Urine Bacteria (Auto) Medications Administered Current Medications Nystatin 30 ml/ Dexamethasone 3.75 mg/ Diphenhydramine HCl 300 mg/ Sucrose 45 ml/Microcrystalline Cellulose 45 ml/ BARCODE IDENTIFIER 1 ea 0 ml PO Q4H PRN PRN Reason: Pain Stop: 06/15/19 16:33 Dextrose (Dextrose 50%) 25 - 50 ml IV UD PRN; Protocol PRN Reason: Hypoglycemia Protocol Stop: 06/16/19 21:44 Glucagon (Glucagen) 1 mg IM UD PRN; Protocol PRN Reason: Hypoglycemia Protocol Stop: 06/16/19 21:44 Glucose (Glucose 40%) 15 - 30 gm PO UD PRN; Protocol PRN Reason: Hypoglycemia Protocol Stop: 06/16/19 21:44 Glucose (Dex4 Glucose) 4 - 8 tabs PO UD PRN; Protocol PRN Reason: Hypoglycemia Protocol Stop: 06/16/19 21:44 Haloperidol Lactate (Haldol) 5 mg IM Q12H PRN PRN Reason: Agitation Stop: 06/13/19 18:33 Heparin Sodium (Porcine) (Heparin Sod 100 Unit/Ml Flush) 5 ml FLUSH PRN PRN PRN Reason: Flush Stop: 06/17/19 05:59 Heparin Sodium/Dextrose (Heparin Sodium/Dextrose) 25,000 units in 500 mls @ 29 mls/hr IV .[id number] [facility]; Protocol Stop: 06/16/19 15:59 Last Admin: 05/18/19 11:38 Dose: 1,450 units/hr, 29 mls/hr Documented by: Ceftriaxone Sodium 2,000 mg/ (Dextrose) 70 mls @ 140 mls/hr IV Q24H [facility]; Protocol Stop: 05/27/19 17:59 Last Infusion: 05/17/19 18:51 Dose: Infused Documented by: Insulin Aspart (Novolog Flexpen) 0 units SC ACHS [facility] Stop: 06/16/19 21:59 Last Admin: 05/18/19 12:33 Dose: Not Given Documented by: Ioversol (Optiray 320 100ml) 89 ml IV ONCE PRN PRN Reason: Interaction Checking Stop: 05/21/19 14:45 Last Admin: 05/17/19 14:48 Dose: 89 ml Documented by: Levetiracetam (Keppra) 500 mg PO BID [facility] Stop: 06/15/19 20:59 Last Admin: 05/18/19 08:36 Dose: 500 mg Documented by: Metoprolol Succinate (Toprol Xl) 25 mg PO QAM [facility] Stop: 06/16/19 08:59 Last Admin: 05/18/19 08:45 Dose: 25 mg Documented by: Miscellaneous (Carbohydrates For Hypoglycemia) 15 - 30 gm PO UD PRN PRN Reason: Hypoglycemia Treatment Stop: 06/16/19 21:44 Morphine Sulfate (Roxanol) 5 mg PO Q4H PRN PRN Reason: Breakthrough Pain Stop: 05/28/19 10:14 Last Admin: 05/18/19 13:08 Dose: 5 mg Documented by: Ondansetron HCl (Zofran) 4 mg IV Q6H PRN PRN Reason: Nausea Stop: 06/13/19 04:05 Prednisone (Prednisone) 20 mg PO DAILY JENNIFFER Stop: 06/16/19 08:59 Last Admin: 05/18/19 08:36 Dose: 20 mg Documented by: Tamsulosin HCl (Flomax) 0.4 mg PO HS JENNIFFER Stop: 06/16/19 20:59 Last Admin: 05/17/19 20:26 Dose: 0.4 mg Documented by: Resident Activity Tracking Resident Involvement: Resident Care Provided Care Provided: Adult Hospital Medicine (1) UTI (urinary tract infection) Hematuria presence: without hematuria Urinary tract infection type: site unspecified Qualified Code(s): N39.0 - Urinary tract infection, site not specified (2) DM type 2 (diabetes mellitus, type 2) Diabetes mellitus complication status: without complication Diabetes mellitus nursing home insulin use: with terminal carman use Qualified Code(s): E11.9 - Type 2 diabetes mellitus without complications; Z79.4 - exterminator helper termite (current) use of insulin (3) Aortic stenosis Cardiac valve disease etiology: etiology unspecified Qualified Code(s): I35.0 - Nonrheumatic aortic (valve) stenosis (4) HLD (hyperlipidemia) Hyperlipidemia type: mixed hyperlipidemia Qualified Code(s): E78.2 - Mixed hyperlipidemia (5) HTN (hypertension) Hypertension type: essential hypertension Qualified Code(s): I10 - Essential (primary) hypertension
[2019-05-18] MEDS: HEPARIN SODIUM/DEXTROSE 25,000 UNITS/500 ML BAG IV SCH (11:38)
--- NOTE | 2019-05-18 11:41 | Radiation OncologyConsultation ---
Date of Consultation May 18, 2019 Assessment & Plan (1) Rectal adenocarcinoma: Assessment: Mr. Price is a 69-year-old gentleman who is a [employer] (refuses blood transfusions) with locally advanced unresectable rectal adenocarcinoma completely involving the anus. The patient was previously treated with a course of palliative external beam radiation therapy which completed in October 2018. The patient has subsequently been on FOLFOX and Avastin chemotherapy underneath the supervision of Dr. Jacobson and Nell Oconnell. The patient was admitted to the hospital due to being found in unresponsive state and was diagnosed with a pulmonary embolus after he was admitted. The patient was started on anticoagulation and did have a bloody bowel movement yesterday. I have been asked to evaluate the patient to discuss the role of further radiation therapy. Treatment Options: 1. Palliative external beam radiation therapy to the anorectal mass to prevent further bleeding. 2. Continue close monitoring with potentially restarting chemotherapy as per medical oncology. 3. Palliative care and best supportive care. Recommendation: I have recommended that the patient be evaluated by gastroenterology with the potential scope to: 1) confirm that the patient does have residual local rectal cancer (estimate potential extent of disease if possible) and 2) identify a potential source of bleeding. If the patient does appear to have residual rectal cancer which is causing his bleeding, I would recommend potential consideration of a second course of radiation therapy to attempt to stop his bleeding given the fact that the patient cannot accept blood transfusions due to his ishan. Additionally, the radiation therapy may also help with his perianal pain. I have spoken with Dr. Decker who understands our rationale for requesting the consultation in this case. If the patient is unable to be scoped or the information from the scope is limited, we could still consider palliative external beam radiation therapy if the medical team is in support of this option with the understanding that his rectal cancer may not be the cause of his rectal bleeding. I have spoken with the patient and his family and they are in agreement with this plan. The patient is expressed to me that he would still be willing to consider radiation therapy even with limited diagnostic evaluation given the circumstances. Plan: 1. Gastroenterology consultation. We will follow-up with these recommendations and then potentially bring the patient down for CT simulation if necessary for treatment. 2. Medical oncology consultation would be appreciated given the circumstances regarding rectal bleeding. 3. Continue all other care as per primary medical team. Rationale/Explanation of Treatment: I did explain the indications, alternatives, benefits, risks and side effects of external beam radiation therapy. I did explain the most common side effects including, but not limited to, skin erythema, skin breakdown, hyperpigmentation, telangiectasia, wound complications, perianal fistula development, fistula formation, nausea, vomiting, bowel obstruction, bowel perforation, dysuria, increased urinary frequency, urgency, diarrhea, constipation, melena, hematochezia, hematuria, radiation cystitis, radiation proctitis, fatigue, decreased blood counts, wound complications from surgery, rectal incontinence, secondary malignancy development. I did explain the procedures and daily process of radiation therapy. The patient understands and would be willing to consent to treatment. I have explained to the patient that there is an increased risk of overlap from the previous course of radiation therapy and the current course of radiation therapy which can increase the risk of all acute and late side effects of radiation therapy. The patient, brother and sister had multiple questions which were answered to their full satisfaction. Thank you for allowing us to participate in the care of this patient. This chart was completed in part utilizing [employer] Speech Voice Recognition software. Attempts were made to minimize the grammatical errors, random word insertions, pronoun errors and incomplete sentences. Any formal questions or concerns about the content, text or information contained within the body of this dictation should be directly addressed to the provider for clarification. Yovany Nieto MD Department of Radiation Oncology [facility] History of Present Illness Attending Physician: Elmira Wadsworth MD History of Present Illness He notes that he is only had minimalFall/Winter 2017 to present. Patient notes intermittent rectal bleeding. He also states that he is having some rectal incontinence and can no longer control bowel movements. He denies any rectal pain. He has no other complaints. 08/11/2018. CT of abdomen/pelvis. IMPRESSION: 1. Rectal wall thickening extending over a distance of 12 cm extending from the anus to the rectosigmoid junction there is associated pathologic adenopathy with in the perirectal space, pelvic sidewall, and central mesentery of the pelvis. GI consultation is recommended in follow-up. 2. No evidence of bowel obstruction. No evidence of free air. 09/07/2018. Patient admitted to [facility] due to gastrointestinal bleeding with anemia. 09/09/2018. CT of chest. IMPRESSION: 1. No evidence of intrathoracic metastatic disease. 2. Cardiomegaly with mild volume overload. 09/09/2018. CT of abdomen/pelvis. IMPRESSION: 1. Persistent extensive rectal wall thickening involving the mid to lower rectum and anorectal junction with gross invasion of the mesorectal fat and lymphadenopathy in the right internal iliac region as on prior exam. No new sites of metastatic disease. 2. Volume overload with anasarca, ascites, and bilateral effusions in the setting of cardiomegaly. 09/09/2018. Colonoscopy by Dr. Hawkins. Findings include palpable rectal mass found on digital rectal exam. A fungating partially obstructing large mass was found in the distal rectum. Mass was circumferential. The mass was 5 cm in length. Oozing was present. Biopsies were taken with cold forceps. Multiple polyps were biopsied and resected. 09/09/2018. Rectum, mass, biopsy: Invasive adenocarcinoma, well differentiated. 09/10/2018. Medical oncology consultation with Dr. Jacobson. Dr. Jacobson has recommended consideration of potential chemotherapy and radiation therapy followed by surgical resection. Dr. Jacobson will see the patient in the outpatient setting. 11/03/2018. Completion of palliative external beam radiation therapy to rectum. Patient received 3600 cGy in 18 fractions at 200 cGy per fraction. 10/2018 to 04/2019. Patient has received FOLFOX and Avastin chemotherapy underneath supervision of Dr. Mike Jacobson and Nell Oconnell. 05/14/2019. Patient admitted to the hospital due due to being found at home unresponsive. Admitted to hospital for further work-up and patient. 05/14/2019. CT head noncontrast. Impression: No acute intracranial abnormality. 05/17/2019. CT of abdomen/pelvis. IMPRESSION: 1. Extensive right-sided pulmonary embolus. 2. Marked cardiomegaly. 3. There is a 1.4 cm perfusion defect in the upper pole of the left kidney. This is new from 04/01/2019 and consistent with a small renal infarct. 4. Findings suggest cystitis. Correlation with clinical findings and urinalysis will be required. 5. Liquid stool is seen throughout the colon. Correlate clinically for evidence of a diarrheal illness. 6. Question subcutaneous gas in the left perineal region inferior to the left gluteal crease. This is only partially visualized and could represent a skinfold. Correlate clinically for evidence of a decubitus ulcer. 7. There is aneurysmal dilatation of the aortic root which measures up to 4.8 cm. This is similar in appearance to previous. 8. There is enlarged lymph node in the central pelvic mesentery of indeterminant etiology and significance. 9. Question wall thickening of the distal stomach and duodenum. Correlate clinically for evidence of gastritis/duodenitis. 10. Additional findings as above. According to primary medical team, the patient did experience bright red blood per rectum with a bowel movement last night. The patient also does admit to some pain perianal perirectal region. The patient does note that he does have rectal incontinence at this point. He has no control of his bowel movements. He states that in general his pain has been relatively stable since radiation therapy and during chemotherapy. He notes that he has only had minimal bleeding during chemotherapy. Allergies Allergy/AdvReac Type Severity Reaction Status Date / Time No Known Allergies Allergy Verified 05/14/19 01:22 Home Medications Home Medications Medication Instructions Recorded Confirmed Type aspirin [Aspirin Low Dose] 81 mg PO QAM 08/11/18 05/14/19 History folic acid 400 mcg PO QAM 08/11/18 05/14/19 History spironolactone 25 mg PO QAM 08/11/18 05/14/19 History ascorbic acid (vitamin C) [Vitamin 500 mg PO QAM 09/07/18 05/14/19 History C] omega 9-nto-nln-fish oil [Fish Oil] 1 cap PO QAM 09/07/18 05/14/19 History omeprazole 20 mg PO QAM 09/07/18 05/14/19 History tamsulosin [Flomax] 0.4 mg PO QPM 09/07/18 05/14/19 History Levemir U-100 Insulin 10 unit SUBCUT HS 11/16/18 05/14/19 History Cholestyramine Light 4 g PO BID@1000,2200 #60 ea 01/26/19 05/14/19 Rx amoxicillin 500 mg tablet 2,000 mg PO ONCE PRN tab 02/04/19 05/14/19 History atorvastatin 20 mg tablet 20 mg PO HS 03/03/19 05/14/19 History diclofenac sodium [Voltaren] 1 gm TOPICAL QID PRN 04/01/19 05/14/19 History ferrous sulfate 325 mg PO TID 04/01/19 05/14/19 History multivitamin 1 tab PO DAILY 04/01/19 05/14/19 History oxycodone-acetaminophen 1 tab PO Q6H PRN 04/01/19 05/14/19 History potassium chloride [Klor-Con M20] 20 meq PO DAILY 04/01/19 05/14/19 History prednisone 20 mg PO QAM 04/01/19 05/14/19 History furosemide [Lasix] 20 mg PO QAM #0 tab 04/03/19 05/14/19 Rx lidocaine 1 patch TOP DAILY #30 ea 04/03/19 05/14/19 Rx metoprolol succinate 25 mg 25 mg PO QAM #90 tab 05/04/19 05/14/19 Rx tablet,extended release 24 hr docusate sodium [Stool Softener] 500 mg PO BID 05/14/19 05/14/19 History morphine 15 mg PO TID PRN 05/14/19 05/14/19 History Patient History Medical History AAA (abdominal aortic aneurysm) NEW FINDING Anemia Aortic stenosis Atrial fibrillation BPH (benign prostatic hyperplasia) Cancer COLON CANCER (NEW DX) RADIATION JUST COMPLETED Chronic systolic (congestive) heart failure Colon cancer Congestive heart failure CVA (cerebral vascular accident) 08/11/18 DM type 2 (diabetes mellitus, type 2) GERD (gastroesophageal reflux disease) HLD (hyperlipidemia) HTN (hypertension) Kidney disease (Chronic) Nonischemic cardiomyopathy Osteoarthritis Seizure "SMALL SEIZURE AT TIME OF CVA 07/2018" Sleep apnea Sleep apnea (Chronic) Surgical History H/O aortic valve replacement (Chronic) 2010 AT [facility] H/O knee surgery RT/LEFT History of cardiac cath 2011 History of colonoscopy History of tooth extraction Port-A-Cath in place (Chronic) Family History Brother Family history of diabetes mellitus Mother Colon cancer Father Coronary heart disease Hypertension Sister Hypertension Grandmother Diabetes Social History Preferred Language: American Communication Ability: Unable Furniture Associate Required: No Beliefs That Will Affect Care: Christianity Christianity Beliefs: caodaism marital status: Current Living Situation: Family Current Living Situation Comment: brother, tameka, sister Feels Safe at Home: Yes Smoking Status: Former smoker Tobacco Type: cigarettes ; Age Quit Using Tobacco: 48 ; Cigarettes Per Day: 5 ; Second Hand Exposure: No ; Hx Alcohol Use: No Hx Substance Use: No Review of Systems Review of Systems: All systems reviewed & are unremarkable except as noted in HPI & below Physical Exam Constitutional: WD/WN, vitals as above Gastrointestinal (Abdomen): Rectal exam: A large erosive defect is noted at the location of the anus. Dried blood is noted on the patient's adult depends diaper. The patient tolerated minimal digital rectal exam which revealed tenderness to palpation but potentially appeared to be residual malignancy however a full digital rectal exam was not able to be performed. Skin: no rashes, warm and dry Neurologic: patellar DTR's 2+ bilat, sensation intact and PERRL, EOMI, accommodation nl, no face palsy, no dysarthria CN's II-XI intact bilaterally Psychiatric: A+Ox3, euthymic affect Results Additional Studies 05/14/19 01:12 ECG [address] cervical spine wo con Urgent CT head/brain wo con Urgent XR chest 1V portable Urgent 05/17/19 08:30 XR KUB/Abdomen 1 view Routine 05/17/19 12:08 CT abd pelvis oral and IV con Routine Time Spent Attending I spent 40 minutes for this consultation, which included obtaining clinical information, performing a physical exam, recommending a plan of action and answering questions. Additionally, I spoke on the phone with Dr. Decker for 5 minutes regarding the case. Greater than 50% of the time spent was direct face to face interaction with the patient.
[2019-05-18 11:59] LABS: Hematocrit (blood only) 33.5 % (42-52); Hemoglobin 11.4 g/dL (14.0-18.0); Mean Corpuscular Hemoglobin 32.4 pg (25-34); Mean Corpuscular Volume 95.2 fL (80-100); Mean Platelet Volume 10.4 fL (7.4-10.4); Platelet Count 113 K/uL (130-400); RDW Coefficient of Variation 16.6 % (11.5-14.5); RDW Standard Deviation 56.7 fL (36.4-46.3); Red Blood Count 3.52 M/uL (4.7-6.1); White Blood Count 6.03 K/uL (4.8-10.8)
--- NOTE | 2019-05-18 15:08 | Anesthesiology Progress Note ---
Date of Service May 18, 2019 Subjective I was asked by Dr. Decker to assess Mr. Price for an anesthetic for a flexible sigmoidoscopy. The patient has a large mass lesion of the rectum which appears to be the source of brisk rectal bleeding and the is to confirm or rule out the lesion as the source of bleeding. The patient has an extensive left-sided pulmonary embolus which is being treated with heparin. Among several co- morbidities he has severe global hypokinesis with an ejection fraction of 20- 25%. I explained to Dr. Avila that if I sedated this patient it would undoubtedly suppress his cardiac output further and possibly vasodilate him causing severe hypotension. I do not recommend administering an anesthetic to this paiient. Physical Exam Vital Signs: Last Vital Signs Temp 36.6 C 05/18/19 11:13 Pulse 79 05/18/19 11:13 Resp 18 05/18/19 11:13 BP 119/84 05/18/19 11:13 Pulse Ox 98 05/18/19 11:13 Results & Data Medications Administered Heparin Sodium/Dextrose (Heparin Sodium/Dextrose) 25,000 units in 500 mls @ 29 mls/hr IV .[id number] [facility]; Protocol Stop: 06/16/19 15:59 Last Admin: 05/18/19 11:38 Dose: 1,450 units/hr, 29 mls/hr Documented by: [id number] Cosigned by: [id number] Titration: 05/18/19 11:38 Dose: 1,450 units/hr, 29 mls/hr Documented by: [id number] Cosigned by: [id number] Titration: 05/18/19 10:00 Dose: 1,450 units/hr, 29 mls/hr Documented by: [id number] Cosigned by: [id number] Titration: 05/18/19 07:00 Dose: 0 units/hr, 0 mls/hr Documented by: [id number] Cosigned by: [id number] Titration: 05/17/19 23:09 Dose: 1,450 units/hr, 29 mls/hr Documented by: [id number] Cosigned by: [id number] Titration: 05/17/19 19:01 Dose: 1,450 units/hr, 29 mls/hr Documented by: [id number] Cosigned by: [id number] Admin: 05/17/19 16:30 Dose: 1,450 units/hr, 29 mls/hr Documented by: [id number] Cosigned by: [id number] Ceftriaxone Sodium 2,000 mg/ (Dextrose) 70 mls @ 140 mls/hr IV Q24H [facility]; Protocol Stop: 05/27/19 17:59 Last Infusion: 05/17/19 18:51 Dose: 0 mls/hr Documented by: [id number] Admin: 05/17/19 18:15 Dose: 140 mls/hr Documented by: [id number] Insulin Aspart (Novolog Flexpen) 0 units SC ACHS [facility] Stop: 06/16/19 21:59 Last Admin: 05/18/19 12:33 Dose: Not Given Documented by: [id number] Cosigned by: [id number] Admin: 05/18/19 08:32 Dose: Not Given Documented by: [id number] Cosigned by: [id number] Admin: 05/17/19 22:24 Dose: 2 units Documented by: [id number] Cosigned by: [id number] Ioversol (Optiray 320 100ml) 89 ml IV ONCE PRN PRN Reason: Interaction Checking Stop: 05/21/19 14:45 Last Admin: 05/17/19 14:48 Dose: 89 ml Documented by: [id number] Levetiracetam (Keppra) 500 mg PO BID [facility] Stop: 06/15/19 20:59 Last Admin: 05/18/19 08:36 Dose: 500 mg Documented by: [id number] Admin: 05/17/19 20:26 Dose: 500 mg Documented by: [id number] Admin: 05/17/19 08:26 Dose: 500 mg Documented by: [id number] Cosigned by: [id number] Admin: 05/16/19 20:06 Dose: 500 mg Documented by: [id number] Metoprolol Succinate (Toprol Xl) 25 mg PO QAM [facility] Stop: 06/16/19 08:59 Last Admin: 05/18/19 08:45 Dose: 25 mg Documented by: [id number] Admin: 05/17/19 08:29 Dose: 25 mg Documented by: [id number] Cosigned by: [id number] Morphine Sulfate (Roxanol) 5 mg PO Q4H PRN PRN Reason: Breakthrough Pain Stop: 05/28/19 10:14 Last Admin: 05/18/19 13:08 Dose: 5 mg Documented by: [id number] Admin: 05/18/19 08:49 Dose: 5 mg Documented by: [id number] Admin: 05/18/19 02:03 Dose: 5 mg Documented by: [id number] Admin: 05/17/19 18:23 Dose: 5 mg Documented by: [id number] Admin: 05/17/19 13:36 Dose: 5 mg Documented by: [id number] Admin: 05/16/19 08:04 Dose: 5 mg Documented by: [id number] Admin: 05/16/19 01:59 Dose: 5 mg Documented by: [id number] Admin: 05/15/19 11:16 Dose: 5 mg Documented by: [id number] Admin: 05/15/19 02:13 Dose: 5 mg Documented by: [id number] Admin: 05/14/19 16:09 Dose: 5 mg Documented by: [id number] Admin: 05/14/19 11:34 Dose: 5 mg Documented by: [id number] Prednisone (Prednisone) 20 mg PO DAILY JENNIFFER Stop: 06/16/19 08:59 Last Admin: 05/18/19 08:36 Dose: 20 mg Documented by: [id number] Admin: 05/17/19 08:24 Dose: 20 mg Documented by: [id number] Cosigned by: [id number] Tamsulosin HCl (Flomax) 0.4 mg PO HS JENNIFFER Stop: 06/16/19 20:59 Last Admin: 05/17/19 20:26 Dose: 0.4 mg Documented by: [id number]
--- NOTE | 2019-05-18 16:31 | Gastrointestinal Consultation ---
Date of Consultation May 18, 2019 Assessment & Plan (1) Rectal bleed: unresectable rectal cancer, anemia (hagb 05/02 at 1147)----I did not repeat rectal exam as he is not bleeding at present and do not want to cause bleeding. At present he is declining unsedated FS. Residual tumor, radiation proctitis are in the differential as is other colon pathology. He states his defibrillator is MRI compatible so MRI of pelvis could be entertained to look for tumor but even if found that would not be definitive as to source. If he has residual tumor as source then more XRT could be enteratained. Pt told he could from PE if no anticoguation or from bleeding if continues to bleed on anticoaguation and does not want blood products. Hgb stable at noon. History of Present Illness Reason for Consultation: Rectal bleeding Requesting Physician: dr Sukhdev Ortiz Attending Physician: Elmira Wadsworth MD History of Present Illness CC rectal bleeding HPI Sister with patient for H and P. Spoke with resident, Dr Wadsworth and radiation oncology DR Nieto today. Pt with rectal cancer diagnosed on colonoscopy 08/2018 deemed unresectable. He received palliative XRT 11/2018 and has been receiving palliative chemo. He is Jehovahs witness and refuses blood transfusions. He presented to ER obtunded with respiratory disrtress but not intubated because DNI/DNR. He responded to bag ventilation. Ct a/p done showed massive right pulmonary embolus. He is on IV heparin and had blood stools this am. He states later in day stool without blood. I offered flex sig without sedation because anesthesia deemed him too high risk to sedate but he declined. Allergies Allergy/AdvReac Type Severity Reaction Status Date / Time No Known Allergies Allergy Verified 05/14/19 01:22 Home Medications Home Medications Medication Instructions Recorded Confirmed Type aspirin [Aspirin Low Dose] 81 mg PO QAM 08/11/18 05/14/19 History folic acid 400 mcg PO QAM 08/11/18 05/14/19 History spironolactone 25 mg PO QAM 08/11/18 05/14/19 History ascorbic acid (vitamin C) [Vitamin 500 mg PO QAM 09/07/18 05/14/19 History C] omega 7-vpn-wzt-fish oil [Fish Oil] 1 cap PO QAM 09/07/18 05/14/19 History omeprazole 20 mg PO QAM 09/07/18 05/14/19 History tamsulosin [Flomax] 0.4 mg PO QPM 09/07/18 05/14/19 History Levemir U-100 Insulin 10 unit SUBCUT HS 11/16/18 05/14/19 History Cholestyramine Light 4 g PO BID@1000,2200 #60 ea 01/26/19 05/14/19 Rx amoxicillin 500 mg tablet 2,000 mg PO ONCE PRN tab 02/04/19 05/14/19 History atorvastatin 20 mg tablet 20 mg PO HS 03/03/19 05/14/19 History diclofenac sodium [Voltaren] 1 gm TOPICAL QID PRN 04/01/19 05/14/19 History ferrous sulfate 325 mg PO TID 04/01/19 05/14/19 History multivitamin 1 tab PO DAILY 04/01/19 05/14/19 History oxycodone-acetaminophen 1 tab PO Q6H PRN 04/01/19 05/14/19 History potassium chloride [Klor-Con M20] 20 meq PO DAILY 04/01/19 05/14/19 History prednisone 20 mg PO QAM 04/01/19 05/14/19 History furosemide [Lasix] 20 mg PO QAM #0 tab 04/03/19 05/14/19 Rx lidocaine 1 patch TOP DAILY #30 ea 04/03/19 05/14/19 Rx metoprolol succinate 25 mg 25 mg PO QAM #90 tab 05/04/19 05/14/19 Rx tablet,extended release 24 hr docusate sodium [Stool Softener] 500 mg PO BID 05/14/19 05/14/19 History morphine 15 mg PO TID PRN 05/14/19 05/14/19 History Patient History Medical History AAA (abdominal aortic aneurysm) NEW FINDING Anemia Aortic stenosis Atrial fibrillation BPH (benign prostatic hyperplasia) Cancer COLON CANCER (NEW DX) RADIATION JUST COMPLETED Chronic systolic (congestive) heart failure Colon cancer Congestive heart failure CVA (cerebral vascular accident) 08/11/18 DM type 2 (diabetes mellitus, type 2) GERD (gastroesophageal reflux disease) HLD (hyperlipidemia) HTN (hypertension) Kidney disease (Chronic) Nonischemic cardiomyopathy Osteoarthritis Seizure "SMALL SEIZURE AT TIME OF CVA 07/2018" Sleep apnea Sleep apnea (Chronic) Surgical History H/O aortic valve replacement (Chronic) 2010 AT [facility] [place] H/O knee surgery RT/LEFT History of cardiac cath 2010 History of colonoscopy History of tooth extraction Port-A-Cath in place (Chronic) Family History Brother Family history of diabetes mellitus Mother Colon cancer Father Coronary heart disease Hypertension Sister Hypertension Grandmother Diabetes Social History Preferred Language: Thai Communication Ability: Unable Foreign Exchange Services Manager Required: No Beliefs That Will Affect Care: Buddhism Buddhism Beliefs: hindu marital status: Current Living Situation: Family Current Living Situation Comment: brother, tameka, sister Feels Safe at Home: Yes Smoking Status: Former smoker Tobacco Type: cigarettes ; Age Quit Using Tobacco: 48 ; Cigarettes Per Day: 5 ; Second Hand Exposure: No ; Hx Alcohol Use: No Hx Substance Use: No Review of Systems Review of Systems: All systems reviewed & are unremarkable except as noted in HPI & below Physical Exam Constitutional: WD/WN, vitals as above Eyes: PERRL, conjunctivae normal, anicteric sclerae ENMT: external ear and nose normal, oropharynx normal Neck: normal visual inspection Respiratory: normal respiratory effort, lungs clear to auscultation Cardiovascular: RRR, no murmur, no edema Gastrointestinal (Abdomen): normal bowel sounds, soft, nontender, no hepatosplenomegaly Neurologic: PERRL, EOMI, accommodation nl, no face palsy, no dysarthria Psychiatric: A+Ox3, euthymic affect Results & Data Vital Signs (Past 12 Hours) Vital Signs Temp Pulse Pulse Resp BP Pulse Ox 05/18/19 15:25 36.3 C L 88 17 144/82 H 97 05/18/19 11:13 36.6 C 79 18 119/84 98 05/18/19 10:45 86 05/18/19 08:44 36.4 C L 84 16 120/73 94 05/18/19 04:50 36.4 C L 74 18 109/65 97
[2019-05-18 16:47] LABS: Partial Thromboplastin Ratio 1.8
[2019-05-18 16:48] LABS: Partial Thromboplastin Time 47.6 Seconds (21.0-31.0)
[2019-05-18] MEDS: cefTRIAXone SODIUM 2,000 MG in DEXTROSE 5% 50 ML IV SCH (18:04)
[2019-05-18] MEDS ORDERED: LACTATED RINGER'S 1,000 ML IV SCH (18:15)
[2019-05-18] MEDS: TAMSULOSIN HCL 0.4 MG CAP PO SCH (20:42)
[2019-05-19] MEDS: HEPARIN SODIUM/DEXTROSE 25,000 UNITS/500 ML BAG IV SCH ×2 (04:54→22:17)
[2019-05-19 07:45] LABS: Hematocrit (blood only) 33.1 % (42-52); Hemoglobin 11.3 g/dL (14.0-18.0); Mean Corpuscular Hemoglobin 32.6 pg (25-34); Mean Corpuscular Hgb Conc 34.1 g/dL (32-36); Mean Corpuscular Volume 95.4 fL (80-100); Mean Platelet Volume 11.4 fL (7.4-10.4); Nucleated RBC # (auto) 0.04 K/uL (0-0); Nucleated RBC % (auto) 1.2 %; Platelet Count 129 K/uL (130-400); RDW Coefficient of Variation 16.7 % (11.5-14.5); RDW Standard Deviation 57.6 fL (36.4-46.3); Red Blood Count 3.47 M/uL (4.7-6.1); White Blood Count 3.24 K/uL (4.8-10.8)
[2019-05-19 08:12] LABS: Partial Thromboplastin Ratio 1.7
[2019-05-19 08:13] LABS: Partial Thromboplastin Time 46.2 Seconds (21.0-31.0)
[2019-05-19] MEDS: INSULIN ASPART 100 UNITS/ML 3 ML PEN SC SCH ×4 (08:32→21:16)
[2019-05-19] MEDS: levETIRAcetam 500 MG TAB PO SCH ×2 (08:33→20:51)
[2019-05-19] MEDS: METOPROLOL SUCC 25MG EXT REL TAB PO SCH (08:33)
[2019-05-19] MEDS: predniSONE 20 MG TAB PO SCH (08:33)
[2019-05-19 08:42] LABS: BUN Creatinine Ratio 28.3 (10-20); Calcium 8.7 mg/dl (8.5-10.1); Creatinine Clr Calc Pharmacy 102.1 ml/min; Est GFR (African American) 107.1; Est GFR (Non-African American) 92.4
--- NOTE | 2019-05-19 09:06 | Hospitalist Progress Note ---
Date of Service May 19, 2019 Assessment & Plan (1) Pulmonary embolus, right: Pt is a 69 y/o M Mormon with rectal adenocarcinoma status post radiation and currently on chemotherapy, chronic diarrhea, aortic valve replacement, chronic systolic heart failure with ejection fraction of 30-35%, nonischemic cardiomyopathy, recurrent syncope, ventricular tachycardia status post ICD placement on 01/25/2019, atrial fibrillation not on AC, DM2, BPH, hyperlipidemia, GERD, and left MCA territory CVA who presented to the emergency room after falling at home and being found by family less responsive than normal. Pulmonary embolus: - CT Abdomen and Pelvis 05/17/19 noted extensive right sided pulmonary embolus. - pt continues to saturate well on room air at this time and denies SOB, CP, palpitations, dizziness. Feeling better today with regard to weakness and fatigue. - Started on heparin drip. have had extensive discussion with this patient and his family about the risk of bleeding on anticoagulation considering he is a [employer] and will not accept blood products - Patient received 5 mg Coumadin today. Per recs from Anticoagulation team: "I would empirically decrease dose to 3 mg daily. He will need a lovenox bridge so there are 5 days of overlap parenteral / Coumadin with 2 days of the INR in therapeutic range (this requirement could be waived due to increased bleeding risk if documented). His renal function is appropriate for enoxaparin 1 mg/kg BID on discharge." Rectal bleeding - Pt had a large bought of bloody diarrhea yesterday AM. PTT checked at port site during heparin infusion was found to be 134 and drip was stopped. Peripheral sample was checked which showed PTT of 30 and drip restarted. Hgb has been stable at 11.3, PTT today 46.2. - GI, Radiation oncology consulted. GI recommended sigmoidoscopy to assess the rectal cancer for palliative radiation to reduce bleeding. Too high risk for anesthesia due to cardiomyopathy. Patient declined procedure without anesthesia. Will not proceed with radiation therapy to affected area at this time per discussion between rad/onc and heme/onc. - closely follow h/h qAM. UTI: - Pt complaining of lower abdominal pain yesterday which is much resolved today. Has a history of prior UTI with pansensitive E. coli. UCx grew pansensitive E. coli this admission. - CT Abdomen/Pelvis showed inflammation of the bladder suggestive of cystitis, no other acute process which would explain abdominal pain. UA positive for bacteria, LE, nitrites. - Will de-escalate Abx from Rocephin to Keflex 500mg PO BID Unresponsive state/Agitation after syncopal event: - CHange in mental status was likely due to concussion post fall and head trauma. - syncope likely from underlying PE. - CTH negative for acute intracranial abnormalities; MRI deferred due to need to turn off ICD in order to perform test which family was unwilling to do given risk/benefit. - EEG showed encephalopathy however did not show seizure activity, however has a history of seizures post stroke and therefore is on Keppra prophylaxis per neurology recommendations. - Patient is back to baseline mental status at this time. Alert and oriented x3. Hypotension: - Likely due to decreased PO intake, has been normotensive today and have adjusted diet to warm foods as patient unable to tolerate cold foods and drinks due to odynophagia. - Encourage PO intake. Pt's family has chocolate ensure at home which the pt likes and they are going to bring that in as well. Pt does not like Boost we tried here in hospital. Odynophagia: - Since being on chemo; has been treated with nystatin recently. Receiving magic mouthwash swish and swallow here q4h PRN odynophagia. - Pt's PO intake was very minimal today, however better than yesterday due to diet switch. Atrial fibrillation: - Pt without chest pain or palpitations, continues to be in AFib. - Pt on home metoprolol. - Pt is on asa 81mg at home however NOT on chronic AC due to previous history of falls and CVA. Holding asa currently due to Heparin drip and bleeding risk. Rectal cancer - Currently on chemo Pancytopenia due to chemotherapy. - Per Hematology and anticoagulation clinic we should try tapering off of the prednisone. Will decrease to 10mg PO daily. CODE STATUS: DNR/DNI, NO BLOOD PRODUCTS. PT is a Mormon Diet: Full Liquid Diet with nutrition shake supplementation DVT ppx: Heparin drip for acute PE bridging to coumadin Dispo: med/surg with tele. On discharge both PT and OT recommend SNF for rehabilitation. Family is agreeable to this. (2) Rectal bleed: (3) No blood products: (4) Altered mental status: (5) UTI (urinary tract infection): (6) Chronic systolic (congestive) heart failure: (7) ICD (implantable cardioverter-defibrillator) in place: (8) Hypokalemia: (9) Rectal adenocarcinoma: (10) CKD (chronic kidney disease) stage 2, GFR 60-89 ml/min: (11) Aortic stenosis: (12) CVA (cerebral vascular accident): (13) HLD (hyperlipidemia): (14) HTN (hypertension): (15) DM type 2 (diabetes mellitus, type 2): (16) Seizure: (17) Afib: Supervising Physician Co-Signing Physician Notes Resident Physician Supervision Note: I independently interviewed and examined the patient and verified the vieira history and physical, reviewed labs and image studies, discussed the case with the resident Dr. Cline and agree with the findings and care plan. Subjective Pt without acute events overnight. No more episodes of maikol blood with diarrhea however notes some intermittent "spotting" in his briefs. Feeling tired today but less than yesterday. Still without SOB, CP, abdominal pain is improved from yesterday. No fevers or chills. No palpitations. Review of Systems Constitutional: + fatigue; no fever and no chills Respiratory: no cough, no dyspnea and no wheezing Cardiovascular: no chest pain, no palpitations and no edema Gastrointestinal: + abdominal pain and + diarrhea/loose stools; no nausea, no vomiting and no constipation Physical Exam Constitutional: well developed and + thin Respiratory: normal respiratory effort, lungs clear to auscultation Cardiovascular: heart rate irregularly irregular, no murmurs. no peripheral edema noted Gastrointestinal (Abdomen): normal bowel sounds, soft, nontender, no hepatosplenomegaly Skin: no rashes, warm and dry Psychiatric: A+Ox3, euthymic affect Results & Data Vital Signs (Past 12 Hours) Vital Signs Temp Pulse Resp BP Pulse Ox 05/19/19 07:29 36.4 C L 46 L 18 116/70 97 05/19/19 03:00 36.6 C 81 20 124/46 L 100 05/18/19 22:53 36.8 C 72 21 145/78 H 98 Resident Activity Tracking Resident Involvement: Resident Care Provided Care Provided: Adult Hospital Medicine (1) UTI (urinary tract infection) Hematuria presence: without hematuria Urinary tract infection type: site unspecified Qualified Code(s): N39.0 - Urinary tract infection, site not specified (2) DM type 2 (diabetes mellitus, type 2) Diabetes mellitus complication status: without complication Diabetes mellitus care home insulin use: with terminal worker use Qualified Code(s): E11.9 - Type 2 diabetes mellitus without complications; Z79.4 - [facility] (current) use of insulin (3) Aortic stenosis Cardiac valve disease etiology: etiology unspecified Qualified Code(s): I35.0 - Nonrheumatic aortic (valve) stenosis (4) Afib Atrial fibrillation type: chronic Qualified Code(s): I48.2 - Chronic atrial fibrillation (5) HLD (hyperlipidemia) Hyperlipidemia type: mixed hyperlipidemia Qualified Code(s): E78.2 - Mixed hyperlipidemia (6) Altered mental status Altered mental status type: unspecified Qualified Code(s): R41.82 - Altered mental status, unspecified (7) HTN (hypertension) Hypertension type: essential hypertension Qualified Code(s): I10 - Essential (primary) hypertension (8) CVA (cerebral vascular accident) CVA mechanism: embolism Laterality of affected vessel: left Precerebral and cerebral artery: middle cerebral artery Qualified Code(s): I63.412 - Cerebral infarction due to embolism of left middle cerebral artery
--- NOTE | 2019-05-19 10:05 | Consultation Report ---
DATE OF CONSULTATION: 05/19/2019 MEDICAL ONCOLOGY CONSULTATION REASON FOR CONSULTATION: A 69-year-old gentleman with locally advanced colorectal cancer with newly diagnosed pulmonary embolism. HISTORY OF PRESENT ILLNESS: Mr. Price is a very pleasant 69-year-old gentleman well known to [facility], currently under my care with locally advanced colorectal cancer. He was admitted on 05/14/2019 after suffering a fall at home in his bathroom and became acutely unresponsive. The patient described a similar fall about 2 weeks prior. He is awake and alert at bedside this morning and explained to me that while in the bathroom, he suddenly had a fall and striking his head on the bathroom counter resulting in an abrasion on the right side of his forehead. The patient was unresponsive for an indeterminate amount of time. According to Mr. Price, he did not suffer an overt seizure. He was subsequently brought to the Emergency Room and CT scan of the head was done acutely revealing no evidence of intracranial anomaly. The patient had also complained of generalized abdominal pain and thus underwent CT scan of the abdomen and pelvis which confirmed the presence of bilateral pulmonary emboli. Reportedly, Mr. Price had been experiencing rectal bleeding. The concern moving forward was anticoagulation in a 69-year-old Jehovah's witness and management of rectal bleeding. Mr. Price has been started on heparin and thus far his hemoglobin has remained stable. Brief background regarding his oncologic history. Mr. Price had developed rectal bleeding earlier this august to be precise. He was worked up and found to have a primary tumor about 5 cm from the anal verge. He was evaluated for possible surgical resection. Unfortunately, there was regional lymphadenopathy noted and he was deemed nonsurgical. Thus it was decided to radiate the primary tumor, which completed in October, I believe, and subsequently started on FOLFOX. His last course is due this coming Thursday. In early March, Mr. Price had suffered a fall and was briefly admitted for syncope. The primary service is requesting consultation along with radiation oncology to determine the most prudent approach for this gentleman moving forward regarding specifically anticoagulation. PAST MEDICAL HISTORY: Positive for colorectal cancer. He also has an abdominal aortic aneurysm, aortic stenosis, atrial fibrillation, BPH, chronic systolic heart failure, CVA, type 2 diabetes mellitus, gastroesophageal reflux disease, hyperlipidemia, hypertension, chronic kidney disease, nonischemic cardiomyopathy, seizure disorder, sleep apnea. PAST SURGICAL HISTORY: Includes aortic valve replacement, knee surgery, cardiac catheterization, colonoscopy, tooth extraction and MediPort insertion. MEDICATIONS: Prior to admission include aspirin 81 mg p.o. daily, folic acid 400 mcg p.o. daily, spironolactone 25 mg p.o. daily, ascorbic acid 500 mg p.o. q.a.m., omega-3 fish oil 1 capsule p.o. daily, omeprazole 20 mg p.o. daily, Flomax 0.4 mg p.o. daily, Levemir U-100 insulin 10 units subQ at bedtime, cholestyramine 4 grams p.o. b.i.d., amoxicillin 2000 mg once p.r.n., atorvastatin 200 mg p.o. at bedtime, Voltaren topical gel 1 gram q.i.d. p.r.n., ferrous sulfate 325 mg p.o. t.i.d., multivitamin, he utilizes oxycodone p.r.n., potassium chloride 20 mEq p.o. daily, prednisone 20 mg p.o. daily, Lasix 20 mg p.o. daily, metoprolol succinate 25 mg p.o. daily, docusate sodium 500 mg p.o. b.i.d., morphine 15 mg p.o. t.i.d. p.r.n. ALLERGIES: No known drug allergies. FAMILY HISTORY: Includes colorectal cancer, coronary artery disease, hypertension, and diabetes. SOCIAL HISTORY: Lives with his . He is a Jehovah's witness. He is nonsmoker, nondrinker. REVIEW OF SYSTEMS: GENERAL: Negative for fevers, chills or sweats. He is not anorexic or losing weight. SKIN: He has multiple excoriations and ecchymoses, but no overt history of dermatoses. HEENT: Negative for headaches, lightheadedness, or dizziness. No dysphagia or sore throat. No sinus symptoms noted. LYMPHATICS: No history of lymphoproliferative disease. CARDIAC: He has a significant cardiac history with arrhythmias and valve replacement. No current angina or palpitations. PULMONARY: Newly diagnosed pulmonary embolism. He is not acutely short of breath or dyspneic. GASTROINTESTINAL: Hematochezia has been reported. He denies any current abdominal pain. No nausea or vomiting, no diarrhea. He does experience constipation for which he uses occasional laxatives. GENITOURINARY: History of BPH. No current hematuria, dysuria, or urinary incontinence. PSYCHIATRIC: Negative for anxiety, depression, or psychoses. ENDOCRINE: Positive for type 2 diabetes mellitus. No thyroid disease. MUSCULOSKELETAL: No overt skeletal pain. No muscle weakness. NEUROLOGIC: Prior history of CVA with associated brief seizure. No history of migraine headache. HEMATOLOGIC: Positive for treatment-induced anemia. PHYSICAL EXAMINATION: GENERAL: A very pleasant 69-year-old gentleman lying supine in no acute distress. VITAL SIGNS: Temperature 36.4, pulse 46, respiratory rate 18, blood pressure 116/70. SKIN: Again, multiple scattered ecchymoses and excoriations attributable to fall. No rashes or lesions otherwise noted. HEENT: Head is minimally traumatic, normocephalic. Eyes, PERRLA, EOMI. Sclerae nonicteric. Nares are patent without rhinorrhea or discharge. Throat is clear. Tongue is midline. Mucous membranes are moist. NECK: Supple without JVD or thyromegaly. LYMPHATICS: No cervical or supraclavicular palpable nodes. HEART: Regular rate and rhythm. No clicks, rubs, murmurs, or gallops. LUNGS: Clear to auscultation bilaterally. ABDOMEN: Soft, nontender, nondistended, without palpable hepatosplenomegaly. EXTREMITIES: No clubbing, cyanosis, or edema. MUSCULOSKELETAL: Strength and pulses are equal in all 4 quadrants. NEUROLOGICAL: He is awake, alert and oriented x3. Cranial nerves are grossly intact. LABORATORY DATA: WBC count 3240, hemoglobin 11.3, platelet count 129,000. Chemistries are pending at the time of dictation. IMPRESSION: 1. Pulmonary embolus, right-sided. 2. Rectal bleeding. 3. Urinary tract infection. 4. Altered mental status. 5. Syncopal episode. 6. Atrial fibrillation. 7. Locally advanced colorectal cancer. PLAN: I have been asked to look in on Mr. Price. He is a very pleasant 69-year-old gentleman who was diagnosed with locally advanced colorectal cancer earlier this spring, deemed not to be a surgical candidate. He completed radiation therapy and is in the midst of completing full complement of combination oxaliplatin, 5-FU and leucovorin. His last dose is scheduled for this coming Thursday. Unfortunately, over the past several weeks, has had 2 episodes resulting in fall and loss of consciousness. There has been no radiographic evidence of intracerebral issues. He has considerable cardiac history and I suspect may be the reason why he is fainting, perhaps arrhythmia. From an oncologic standpoint, he is poised to complete his full complement of chemotherapy. My plan is to obtain posttreatment scans to document response and pursue observation thereafter. Apparently, he has had episodes of rectal bleeding and was incidentally diagnosed with pulmonary embolism requiring anticoagulation. With his cancer history, I would propose keeping him on indefinite anticoagulation. He is a Jehovah's witness and is against receiving any transfused products which obviously poses a challenge with anticoagulation moving forward. I appreciate radiation oncology's opinion this admission. I directly spoke to Dr. Nieto and asked him to hold off on radiation for now. Mr. Price's hemoglobin has remained stable. I have suggested converting him to Coumadin and took the liberty of asking Dr. Devries to take over anticoagulation monitoring. Hopefully, he will be discharged sometime before week's end. He is scheduled to receive his last course of chemotherapy. He will obviously be evaluated by either myself or the physician electrician chief before pushing forward. Perhaps a brief delay may be in order. I have nothing further to add. I agree with medical management otherwise. Thank you very much for allowing me to participate in his care.
[2019-05-19] MEDS ORDERED: WARFARIN SOD 5 MG TAB PO STA (10:27)
[2019-05-19] MEDS: POTASSIUM CHLORIDE / WTR 10 MEQ/100 ML PLCT IV SCH ×8 (12:43→21:42)
--- NOTE | 2019-05-19 15:03 | Consultation ---
Date of Consultation May 19, 2019 Assessment & Plan (1) Pulmonary embolus, right: Asked to provide input for anticoagulation management in this 69 year old man, complicated medical history including permanent Afib, adenocarcinoma of the rectum, GI bleed, ICD in place, non-ischemic cardiomyopathy and newly diagnosed right sided pulmonary embolism. He is currently on unfractionated heparin and will need to have ongoing anticoagulation management. Given the fact that he has had a recent GI bleed and is a S[employer] and will not take blood products, a reversible agent such as warfarin is preferred. He has received 5 mg of Coumadin today (first dose). Recommendations: 1. Patient received 5 mg Coumadin today. I would empirically decrease dose to 3 mg daily. He will need a lovenox bridge so there are 5 days of overlap parenteral / Coumadin with 2 days of the INR in therapeutic range (this requirement could be waived due to increased bleeding risk if documented). His renal function is appropriate for enoxaparin 1 mg/kg BID on discharge. 2. I have concerns about his nutritional status. Please have the patient begin a can of Boost or Ensure daily and continue through d/c. 3. Prednisone being given to increase appetite - would megace or marinol be a consideration in place of prednisone (which can interfere with Coumadin) 4. On d/c he will either go to a short term facility or home with home health. We can assist with the INRs but the patient and his family know and understand that this is short term and we will need to see him in clinic for a first visit at some point in the near future. 5. Problem list updated to reflect decline of blood products. Thank you for referring your patient to the [facility] Anticoagulation Clinic. Present on Admission?: Yes History of Present Illness Attending Physician: Elmira Wadsworth MD Allergies Allergy/AdvReac Type Severity Reaction Status Date / Time No Known Allergies Allergy Verified 05/14/19 01:22 Home Medications Home Medications Medication Instructions Recorded Confirmed Type aspirin [Aspirin Low Dose] 81 mg PO QAM 08/11/18 05/14/19 History folic acid 400 mcg PO QAM 08/11/18 05/14/19 History spironolactone 25 mg PO QAM 08/11/18 05/14/19 History ascorbic acid (vitamin C) [Vitamin 500 mg PO QAM 09/07/18 05/14/19 History C] omega [id number] oil [Fish Oil] 1 cap PO QAM 09/07/18 05/14/19 History omeprazole 20 mg PO QAM 09/07/18 05/14/19 History tamsulosin [Flomax] 0.4 mg PO QPM 09/07/18 05/14/19 History Levemir U-100 Insulin 10 unit SUBCUT HS 11/16/18 05/14/19 History Cholestyramine Light 4 g PO BID@1000,2200 #60 ea 01/26/19 05/14/19 Rx amoxicillin 500 mg tablet 2,000 mg PO ONCE PRN tab 02/04/19 05/14/19 History atorvastatin 20 mg tablet 20 mg PO HS 03/03/19 05/14/19 History diclofenac sodium [Voltaren] 1 gm TOPICAL QID PRN 04/01/19 05/14/19 History ferrous sulfate 325 mg PO TID 04/01/19 05/14/19 History multivitamin 1 tab PO DAILY 04/01/19 05/14/19 History oxycodone-acetaminophen 1 tab PO Q6H PRN 04/01/19 05/14/19 History potassium chloride [Klor-Con M20] 20 meq PO DAILY 04/01/19 05/14/19 History prednisone 20 mg PO QAM 04/01/19 05/14/19 History furosemide [Lasix] 20 mg PO QAM #0 tab 04/03/19 05/14/19 Rx lidocaine 1 patch TOP DAILY #30 ea 04/03/19 05/14/19 Rx metoprolol succinate 25 mg 25 mg PO QAM #90 tab 05/04/19 05/14/19 Rx tablet,extended release 24 hr docusate sodium [Stool Softener] 500 mg PO BID 05/14/19 05/14/19 History morphine 15 mg PO TID PRN 05/14/19 05/14/19 History Patient History Medical History AAA (abdominal aortic aneurysm) NEW FINDING Anemia Aortic stenosis Atrial fibrillation BPH (benign prostatic hyperplasia) Cancer COLON CANCER (NEW DX) RADIATION JUST COMPLETED Chronic systolic (congestive) heart failure Colon cancer Congestive heart failure CVA (cerebral vascular accident) 08/11/18 DM type 2 (diabetes mellitus, type 2) GERD (gastroesophageal reflux disease) HLD (hyperlipidemia) HTN (hypertension) Kidney disease (Chronic) Nonischemic cardiomyopathy Osteoarthritis Seizure "SMALL SEIZURE AT TIME OF CVA 07/2018" Sleep apnea Sleep apnea (Chronic) Surgical History H/O aortic valve replacement (Chronic) 2010 AT [facility] H/O knee surgery RT/LEFT History of cardiac cath 2011 History of colonoscopy History of tooth extraction Port-A-Cath in place (Chronic) Family History Brother Family history of diabetes mellitus Mother Colon cancer Father Coronary heart disease Hypertension Sister Hypertension Grandmother Diabetes Social History Preferred Language: Dutch Communication Ability: Unable Network Applications Specialist Required: No Beliefs That Will Affect Care: Buddhism Buddhism Beliefs: jainism marital status: Current Living Situation: Family Current Living Situation Comment: brother, tameka, sister Feels Safe at Home: Yes Smoking Status: Former smoker Tobacco Type: cigarettes ; Age Quit Using Tobacco: 48 ; Cigarettes Per Day: 5 ; Second Hand Exposure: No ; Hx Alcohol Use: No Hx Substance Use: No Results & Data Vital Signs (Past 12 Hours) Vital Signs Temp Pulse Pulse Resp BP Pulse Ox 05/19/19 13:06 36.7 C 54 L 18 122/78 97 05/19/19 07:29 36.4 C L 46 L 18 116/70 97 05/19/19 03:00 36.6 C 81 20 124/46 L 100
--- NOTE | 2019-05-19 16:15 | Gastroenterology Progress Note ---
Date of Service May 19, 2019 Assessment & Plan (1) Rectal bleed: unresectable rectal cancer, anemia (hagb 05/02 at 1147)----Hgb stable. No further bleeding. Will sign off. . Subjective CC f/u rectal bleeding HPI No further rectal bleeding. Physical Exam Constitutional: WD/WN, vitals as above Psychiatric: A+Ox3, euthymic affect Results & Data Vital Signs (Past 12 Hours) Vital Signs Temp Pulse Pulse Resp BP Pulse Ox 05/19/19 15:17 36.4 C L 82 18 124/82 97 05/19/19 13:06 36.7 C 54 L 18 122/78 97 05/19/19 07:29 36.4 C L 46 L 18 116/70 97
[2019-05-19] MEDS: cephALEXin 500 MG CAP PO SCH (18:09)
[2019-05-19] MEDS: TAMSULOSIN HCL 0.4 MG CAP PO SCH (20:51)
[2019-05-20] MEDS: cephALEXin 500 MG CAP PO SCH ×3 (00:07→20:32)
[2019-05-20 05:36] LABS: Hematocrit (blood only) 31.7 % (42-52); Hemoglobin 10.9 g/dL (14.0-18.0); Mean Corpuscular Hemoglobin 32.5 pg (25-34); Mean Corpuscular Hgb Conc 34.4 g/dL (32-36); Mean Corpuscular Volume 94.6 fL (80-100); Mean Platelet Volume 10.5 fL (7.4-10.4); Nucleated RBC # (auto) 0.04 K/uL (0-0); Nucleated RBC % (auto) 1.9 %; Platelet Count 125 K/uL (130-400); RDW Coefficient of Variation 17.1 % (11.5-14.5); RDW Standard Deviation 57.6 fL (36.4-46.3); Red Blood Count 3.35 M/uL (4.7-6.1); White Blood Count 2.18 K/uL (4.8-10.8)
[2019-05-20 05:55] LABS: INR 1.5 (0.9-1.1); Partial Thromboplastin Ratio 3.9; Prothrombin Time 14.5 Seconds (9.0-12.0)
[2019-05-20 06:20] LABS: Partial Thromboplastin Time 104.4 Seconds (21.0-31.0)
[2019-05-20 07:16] LABS: INR 1.5 (0.9-1.1); Partial Thromboplastin Ratio 1.9; Prothrombin Time 14.7 Seconds (9.0-12.0)
[2019-05-20 07:33] LABS: Partial Thromboplastin Time 51.3 Seconds (21.0-31.0)
[2019-05-20] MEDS: INSULIN ASPART 100 UNITS/ML 3 ML PEN SC SCH ×4 (08:17→20:50)
[2019-05-20] MEDS: levETIRAcetam 500 MG TAB PO SCH ×2 (08:19→20:32)
[2019-05-20] MEDS: METOPROLOL SUCC 25MG EXT REL TAB PO SCH (08:23)
[2019-05-20] MEDS: predniSONE 10 MG TABLET PO SCH (08:34)
[2019-05-20] MEDS ORDERED: FUROSEMIDE 20 MG TAB PO ONE (09:15)
--- NOTE | 2019-05-20 09:47 | Progress Note ---
DATE: 05/20/2019 DIAGNOSES: 1. Pulmonary embolus. 2. Rectal bleeding. 3. Urinary tract infection. 4. Altered mental status. 5. Syncopal episode. 6. Atrial fibrillation. 7. Locally advanced colorectal cancer status post FOLFOX chemotherapy. SUBJECTIVE: Mr. Price was seen and examined at bedside. He is still mentally a little bit foggy, but awake and alert, otherwise. He reports 2 episodes of diarrhea overnight. Again, I took the liberty of asking Dr. Devries to assist in converting him to Coumadin. He received a 5 mg dose yesterday and the hospitalist awaits recommendations from Dr. Devries for today's dosing. I believe Mr. Price is heading towards discharge perhaps to a rehabilitation facility. He is due for his last chemotherapy this coming Thursday; however, would not press the issue at this point. We can certainly delay him for a week or two to complete chemo. His hemoglobin has remained stable. Today, he offers no complaints of pain per se. Nursing reports no overnight difficulties. OBJECTIVE: GENERAL: Pleasant 69-year-old gentleman in no acute distress. VITAL SIGNS: Temperature 36.5, pulse 67, respiratory rate 20, blood pressure 110/67. SKIN: He has got scattered ecchymoses. There is upper extremities senile purpura noted. HEENT: Oral mucosa without erythema or ulceration. HEART: Regular rate and rhythm. LUNGS: Clear to auscultation bilaterally. ABDOMEN: Soft, nontender, nondistended. EXTREMITIES: No clubbing, cyanosis or edema. NEUROLOGIC: He is grossly intact. LABORATORY DATA: WBC count 2180, hemoglobin 10.9, platelet count 125,000. PT 14.7 seconds, INR 1.5. His PTT 51.3 seconds. IMPRESSION: 1. Pulmonary embolism. 2. Intermittent rectal bleeding. 3. Urinary tract infection. 4. Altered mental status. 5. Syncopal episode. 6. Atrial fibrillation. 7. Locally advanced colorectal cancer. PLAN: From an oncologic standpoint at some point, Mr. Price will receive his final course of FOLFOX chemotherapy. Quite frankly, I am not in a hurry to have him complete his regimen. Dr. Devries will continue to manage his anticoagulation moving forward. I spoke to the managing hospitalist the plans to discharge Mr. Price to a rehabilitation facility for further strengthening, which I believe is reasonable. I still contented the syncopal episodes are most likely cardiac perhaps electrolyte related. We plan to reevaluate Mr. Price within the next week or two and decide on when to administer his final course of treatment moving forward. I have nothing further to add and will officially sign off this admission. Thank you very much for allowing us to participate in his care.
--- NOTE | 2019-05-20 10:09 | Hospitalist Progress Note ---
Date of Service May 20, 2019 Assessment & Plan (1) Pulmonary embolus, right: Pt is a 69 y/o M Sikh with rectal adenocarcinoma status post radiation and currently on chemotherapy, chronic diarrhea, aortic valve replacement, chronic systolic heart failure with ejection fraction of 30-35%, nonischemic cardiomyopathy, recurrent syncope, ventricular tachycardia status post ICD placement on 01/25/2019, atrial fibrillation not on AC, DM2, BPH, hyperlipidemia, GERD, and left MCA territory CVA who presented to the emergency room after falling at home and being found by family less responsive than normal. Pulmonary embolism (right sided): - CT Abdomen and Pelvis 05/17/19 noted extensive right sided pulmonary embolus. - Pt continues to saturate well on room air at this time and denies SOB, CP, palpitations, dizziness. - Have had extensive discussion with this patient and his family about the risk of bleeding on anticoagulation considering he is a Sikh and will not accept blood products. - Started on heparin drip, and currently bridging to Coumadin. INR 1.5 this AM. PTT 51.3 this AM. Continue to follow daily coagulation studies. - Dr. Devries with anticoagulation clinic is following and recommended 3mg coumadin daily until at goal INR 2-3; may be discharged on enoxaparin 1mg/kg BID if bridging not complete by discharge. She will follow up with him in the outpatient. Rectal bleeding: - Pt has a history of rectal bleeding and has had intermittent bloody diarrhea this admission. - Pt denies rectal bleeding since yesterday AM. Hgb has been stable since Heparin drip was started, and today Hgb was 10.9. - GI, Radiation oncology consulted and following. For outpatient follow up following discharge. - Closely following h/h qAM. UTI: - Pt is without abdominal pain, which he had a few days ago prior to beginning Abx for UTI. Has a history of prior UTI with pansensitive E. coli. UCx grew pansensitive E. coli this admission. - CT Abdomen/Pelvis showed inflammation of the bladder suggestive of cystitis, no other acute process which would explain abdominal pain. UA positive for bacteria, LE, nitrites. - Started Abx 05/17/19. Continue Keflex 500mg PO BID for complicated UTI. Chronic systolic heart failure - Pt has a history of and follows with [facility] in heart failure clinic. - Pt has 1+ edema of bilateral LE tody but not fluid overloaded on lung exam. - On Lasix 20mg PO daily at home. Have given one dose and will assess for improvement. Unresponsive state/Agitation after syncopal event: - Change in mental status was likely due to concussion post fall and head trauma. - Syncope likely from underlying PE. - CTH negative for acute intracranial abnormalities; MRI deferred due to need to turn off ICD in order to perform test which family was unwilling to do given risk/benefit. - EEG showed encephalopathy however did not show seizure activity, however has a history of seizures post stroke and therefore is on Keppra prophylaxis per neurology recommendations. - Patient is back to baseline mental status at this time. Alert and oriented x3. Hypotension / Malnutrition: - Likely due to decreased PO intake, has been normotensive today and have adjusted diet to warm foods as patient unable to tolerate cold foods and drinks due to odynophagia. - Encourage PO intake. Pt's family has chocolate ensure at home which the pt likes and they are going to bring that in as well. Pt does not like Boost we tried here in hospital. - Have consulted Dieticians on staff for assistance with diet given intolerance to cold food and liquid diet. Have repleted potassium many times this admission. Odynophagia: - Since being on chemo; has been treated with nystatin recently. Receiving magic mouthwash swish and swallow here q4h PRN odynophagia. - Pt's PO intake better with liquid food. Have consulted dietary as above. Atrial fibrillation: - Pt without chest pain or palpitations, continues to be in AFib. - Pt on home metoprolol. Have stopped this today due to bradycardia. - Pt is on asa 81mg at home however NOT on chronic AC due to previous history of falls and CVA. Holding asa currently due to Heparin drip and coumadin and bleeding risk. Rectal cancer - Currently on chemo: - due to chemotherapy. - Per Hematology and anticoagulation clinic we should try tapering off of the prednisone. Decreased to 10mg PO daily today; will continue 10mg through the weekend and then discontinue. Severe protein-calorie malnutrition -nutrition support CODE STATUS: DNR/DNI, NO BLOOD PRODUCTS. PT is a Sikh Diet: Full Liquid Diet with nutrition shake supplementation DVT ppx: Heparin drip for acute PE bridging to coumadin Dispo: med/surg with tele. On discharge both PT and OT recommend SNF for rehabilitation. Placement potentially available on Thursday pending PT/OT evaluation at that time. (2) Rectal bleed: (3) No blood products: (4) Altered mental status: (5) UTI (urinary tract infection): (6) Chronic systolic (congestive) heart failure: (7) ICD (implantable cardioverter-defibrillator) in place: (8) Hypokalemia: (9) Diarrhea: (10) Rectal adenocarcinoma: (11) CKD (chronic kidney disease) stage 2, GFR 60-89 ml/min: (12) CVA (cerebral vascular accident): (13) HLD (hyperlipidemia): (14) HTN (hypertension): (15) DM type 2 (diabetes mellitus, type 2): (16) Seizure: (17) Afib: (18) Malnutrition: Supervising Physician Co-Signing Physician Notes Resident Physician Supervision Note: I independently interviewed and examined the patient and verified the vieira history and physical, reviewed labs and image studies, discussed the case with the resident Dr. Cline and agree with the findings and care plan. Subjective Pt without acute events overnight. Still having episodes of diarrhea however pt reports that he has intermittent diarrhea at baseline at home. No more blood in his stools and no more rectal bleeding since yesterday AM. Denies abdominal pain. No dysuria or hematuria. No fevers or chills, no SOB CP palpitations. Review of Systems Constitutional: no fever and no chills Respiratory: no cough, no dyspnea and no wheezing Cardiovascular: + edema; no chest pain Gastrointestinal: + diarrhea/loose stools; no abdominal pain, no nausea, no vomiting and no blood in stools Physical Exam Constitutional: well developed and + thin Respiratory: normal respiratory effort, lungs clear to auscultation Cardiovascular: RRR, no murmur, no edema Gastrointestinal (Abdomen): normal bowel sounds, soft, nontender, no hepatosplenomegaly Skin: no rashes, warm and dry Psychiatric: A+Ox3, euthymic affect Results & Data Vital Signs (Past 12 Hours) Vital Signs Temp Pulse Pulse Resp BP BP Pulse Ox 05/20/19 08:36 67 20 110/67 05/20/19 08:14 66 18 97/61 L 96 05/20/19 07:25 71 05/20/19 04:00 36.5 C 67 18 132/82 96 05/19/19 23:00 36.5 C 71 20 122/67 98 Laboratory Results Laboratory Results - last 24 hr 05/19/19 05/19/19 05/19/19 07:43 16:40 20:26 WBC RBC Hgb Hct MCV MCH MCHC RDW Std Deviation RDW Coeff of Amandeep Plt Count MPV Absolute Nucleated RBC Nucleated RBC % (auto) PT INR APTT PTT Ratio POC Glucose 172 H 174 H 176 H 05/20/19 05/20/19 05/20/19 05:09 05:09 06:47 WBC 2.18 L RBC 3.35 L Hgb 10.9 L Hct 31.7 L MCV 94.6 MCH 32.5 MCHC 34.4 RDW Std Deviation 57.6 H RDW Coeff of Amandeep 17.1 H Plt Count 125 L MPV 10.5 H Absolute Nucleated RBC 0.04 H Nucleated RBC % (auto) 1.9 PT 14.5 H 14.7 H INR 1.5 H 1.5 H APTT 104.4 H* 51.3 H* PTT Ratio 3.9 1.9 POC Glucose 05/20/19 05/20/19 07:59 11:53 WBC RBC Hgb Hct MCV MCH MCHC RDW Std Deviation RDW Coeff of Amandeep Plt Count MPV Absolute Nucleated RBC Nucleated RBC % (auto) PT INR APTT PTT Ratio POC Glucose 142 H 146 H Medications Administered Current Medications Cephalexin HCl (Keflex) 500 mg PO BID JENNIFFER Stop: 05/29/19 17:59 Last Admin: 05/20/19 08:18 Dose: 500 mg Documented by: Nystatin 30 ml/ Dexamethasone 3.75 mg/ Diphenhydramine HCl 300 mg/ Sucrose 45 ml/Microcrystalline Cellulose 45 ml/ BARCODE IDENTIFIER 1 ea 0 ml PO Q4H PRN PRN Reason: Pain Stop: 06/18/19 14:38 Dextrose (Dextrose 50%) 25 - 50 ml IV UD PRN; Protocol PRN Reason: Hypoglycemia Protocol Stop: 06/16/19 21:44 Glucagon (Glucagen) 1 mg IM UD PRN; Protocol PRN Reason: Hypoglycemia Protocol Stop: 06/16/19 21:44 Glucose (Glucose 40%) 15 - 30 gm PO UD PRN; Protocol PRN Reason: Hypoglycemia Protocol Stop: 06/16/19 21:44 Glucose (Dex4 Glucose) 4 - 8 tabs PO UD PRN; Protocol PRN Reason: Hypoglycemia Protocol Stop: 06/16/19 21:44 Haloperidol Lactate (Haldol) 5 mg IM Q12H PRN PRN Reason: Agitation Stop: 06/13/19 18:33 Heparin Sodium (Porcine) (Heparin Sod 100 Unit/Ml Flush) 5 ml FLUSH PRN PRN PRN Reason: Flush Stop: 06/17/19 05:59 Heparin Sodium/Dextrose (Heparin Sodium/Dextrose) 25,000 units in 500 mls @ 29 mls/hr IV .[id number] [facility]; Protocol Stop: 06/16/19 15:59 Last Titration: 05/20/19 15:11 Dose: 1,450 units/hr, 29 mls/hr Documented by: Insulin Aspart (Novolog Flexpen) 0 units SC ACHS [facility] Stop: 06/16/19 21:59 Last Admin: 05/20/19 12:34 Dose: Not Given Documented by: Ioversol (Optiray 320 100ml) 89 ml IV ONCE PRN PRN Reason: Interaction Checking Stop: 05/21/19 14:45 Last Admin: 05/17/19 14:48 Dose: 89 ml Documented by: Levetiracetam (Keppra) 500 mg PO BID [facility] Stop: 06/15/19 20:59 Last Admin: 05/20/19 08:19 Dose: 500 mg Documented by: Metoprolol Succinate (Toprol Xl) 25 mg PO QAM [facility] Stop: 06/16/19 08:59 Last Admin: 05/20/19 08:23 Dose: 25 mg Documented by: Miscellaneous (Carbohydrates For Hypoglycemia) 15 - 30 gm PO UD PRN PRN Reason: Hypoglycemia Treatment Stop: 06/16/19 21:44 Morphine Sulfate (Roxanol) 5 mg PO Q4H PRN PRN Reason: Breakthrough Pain Stop: 05/28/19 10:14 Last Admin: 05/18/19 17:29 Dose: 5 mg Documented by: Ondansetron HCl (Zofran) 4 mg IV Q6H PRN PRN Reason: Nausea Stop: 06/13/19 04:05 Prednisone (Prednisone) 10 mg PO DAILY JENNIFFER Stop: 06/19/19 08:59 Last Admin: 05/20/19 08:34 Dose: 10 mg Documented by: Tamsulosin HCl (Flomax) 0.4 mg PO HS JENNIFFER Stop: 06/16/19 20:59 Last Admin: 05/19/19 20:51 Dose: 0.4 mg Documented by: Warfarin Sodium (Coumadin) 3 mg PO DAILY@1600 [facility] Stop: 06/19/19 15:59 Resident Activity Tracking Resident Involvement: Resident Care Provided Care Provided: Adult Hospital Medicine (1) UTI (urinary tract infection) Hematuria presence: without hematuria Urinary tract infection type: site unspecified Qualified Code(s): N39.0 - Urinary tract infection, site not specified (2) DM type 2 (diabetes mellitus, type 2) Diabetes mellitus complication status: without complication Diabetes mellitus middle or intermediate school principal insulin use: with correction use Qualified Code(s): E11.9 - Type 2 diabetes mellitus without complications; Z79.4 - intermediate manager (current) use of insulin (3) Afib Atrial fibrillation type: chronic Qualified Code(s): I48.2 - Chronic atrial fibrillation (4) Diarrhea Diarrhea type: unspecified type Qualified Code(s): R19.7 - Diarrhea, unspecified (5) HLD (hyperlipidemia) Hyperlipidemia type: mixed hyperlipidemia Qualified Code(s): E78.2 - Mixed hyperlipidemia (6) Altered mental status Altered mental status type: unspecified Qualified Code(s): R41.82 - Altered mental status, unspecified (7) HTN (hypertension) Hypertension type: essential hypertension Qualified Code(s): I10 - Essential (primary) hypertension (8) CVA (cerebral vascular accident) CVA mechanism: embolism Laterality of affected vessel: left Precerebral and cerebral artery: middle cerebral artery Qualified Code(s): I63.412 - Cerebral infarction due to embolism of left middle cerebral artery
[2019-05-20] MEDS ORDERED: POTASSIUM CHLORIDE 20 MEQ TABCR PO STA (10:19)
[2019-05-20] MEDS ORDERED: WARFARIN SOD 3 MG TAB PO SCH (16:00)
[2019-05-20] MEDS: ONDANSETRON INJ 2 MG/ML 2 ML VIAL IV PRN (16:12)
[2019-05-20] MEDS: MoRPHine SULFATE 5 MG/0.25 ML UDP PO PRN (16:13)
[2019-05-20] MEDS: HEPARIN SODIUM/DEXTROSE 25,000 UNITS/500 ML BAG IV SCH (16:42)
[2019-05-20] MEDS: TAMSULOSIN HCL 0.4 MG CAP PO SCH (20:32)
[2019-05-21] MEDS: ONDANSETRON INJ 2 MG/ML 2 ML VIAL IV PRN ×3 (00:38→15:25)
[2019-05-21] MEDS ORDERED: PROMETHAZINE HCL 6.25 MG in SODIUM CHLORIDE 0.9% 50 ML IV STA (01:22)
[2019-05-21] MEDS: MoRPHine SULFATE 5 MG/0.25 ML UDP PO PRN (01:33)
[2019-05-21 07:07] LABS: Hematocrit (blood only) 35.1 % (42-52); Hemoglobin 11.9 g/dL (14.0-18.0); Mean Corpuscular Hemoglobin 32.2 pg (25-34); Mean Corpuscular Hgb Conc 33.9 g/dL (32-36); Mean Corpuscular Volume 95.1 fL (80-100); Nucleated RBC # (auto) 0.03 K/uL (0-0); Platelet Count 112 K/uL (130-400); RDW Coefficient of Variation 17.6 % (11.5-14.5); Red Blood Count 3.69 M/uL (4.7-6.1); White Blood Count 1.35 K/uL (4.8-10.8)
[2019-05-21 07:28] LABS: INR 2.9 (0.9-1.1); Partial Thromboplastin Ratio 2.7; Prothrombin Time 27.9 Seconds (9.0-12.0)
[2019-05-21 07:36] LABS: BUN Creatinine Ratio 23.4 (10-20); Calcium 8.5 mg/dl (8.5-10.1); Creatinine Clr Calc Pharmacy 112.4 ml/min; Est GFR (African American) 110.8; Est GFR (Non-African American) 95.6; Potassium 2.6 mmol/L (3.5-5.1)
[2019-05-21 07:39] LABS: Partial Thromboplastin Time 74.3 Seconds (21.0-31.0)
--- NOTE | 2019-05-21 07:39 | Hospitalist Progress Note ---
Date of Service May 21, 2019 Assessment & Plan (1) Pulmonary embolus, right: Pt is a 69 y/o M Orthodox with rectal adenocarcinoma status post radiation and currently on chemotherapy, chronic diarrhea, aortic valve replacement, chronic systolic heart failure with ejection fraction of 30-35%, nonischemic cardiomyopathy, recurrent syncope, ventricular tachycardia status post ICD placement on 01/25/2019, atrial fibrillation not on AC, DM2, BPH, hyperlipidemia, GERD, and left MCA territory CVA who presented to the emergency room after falling at home and being found by family less responsive than normal. Side Effects of Chemotherapy Had a discussion with the patient regarding his chemotherapy symptoms, he reported nausea, lack of appetite, and overall malaise. Discussed with him considering Marinol for alleviation of his symptoms. Patient is interested. -Start Marinol 2.5 mg 3 times daily if patient tolerates well and has no adverse events would have a low threshold for escalating dose as therapeutic doses tend to be between 5 and 10 mg 3 times daily Pulmonary embolism (right sided): - CT Abdomen and Pelvis 05/17/19 noted extensive right sided pulmonary embolus. - Pt continues to saturate well on room air at this time and denies SOB, CP, palpitations, dizziness. - Dr. Devries with anticoagulation clinic is following and recommended 3mg coumadin daily until at goal INR 2-3; may be discharged on enoxaparin 1mg/kg BID if bridging not complete by discharge. She will follow up with him in the outpatient. -Have had extensive discussion with this patient and his family about the risk of bleeding on anticoagulation considering he is a Orthodox and will not accept blood products. - Started on heparin drip, and currently bridging to Coumadin. daily ptt/inr - INR: 1.5->1.5->2.9 - d/c heparin as INR now theraputic, holding warfarin today, plan to restart 1.5 mg tomorrow Rectal bleeding: - Pt has a history of rectal bleeding and has had intermittent bloody diarrhea this admission. GI, Radiation oncology consulted and following. For outpatient follow up following discharge. - Pt denies rectal bleeding since yesterday AM. Hgb has been stable since Heparin drip was started -Trend am h/h -HGB: 11.2->11.4->11.3->10.9->11.9 UTI: - Pt is without abdominal pain, which he had a few days ago prior to beginning Abx for UTI. Has a history of prior UTI with pansensitive E. coli. UCx grew pansensitive E. coli this admission. - CT Abdomen/Pelvis showed inflammation of the bladder suggestive of cystitis, no other acute process which would explain abdominal pain. UA positive for bacteria, LE, nitrites. - Started Abx Keflex 500mg PO BID for complicated UTI on 05/17/19. -Day 3 Chronic systolic heart failure - Pt has a history of and follows with [facility] in heart failure clinic. - Pt has 1+ edema of bilateral LE tody but not fluid overloaded on lung exam. - On Lasix 20mg PO daily at home. Have given one dose and will assess for improvement. -Hypotensive today would refrain from further Lasix therapy Unresponsive state/Agitation after syncopal event: - Change in mental status was likely due to concussion post fall and head trauma. - Syncope likely from underlying PE. - CTH negative for acute intracranial abnormalities; MRI deferred due to need to turn off ICD in order to perform test which family was unwilling to do given risk/benefit. - EEG showed encephalopathy however did not show seizure activity, however has a history of seizures post stroke and therefore is on Keppra prophylaxis per neurology recommendations. - Patient is back to baseline mental status at this time. Alert and oriented x3. Hypotension / Malnutrition: - Likely due to decreased PO intake, has been normotensive today and have adjusted diet to warm foods as patient unable to tolerate cold foods and drinks due to odynophagia. - Encourage PO intake. Pt's family has chocolate ensure at home which the pt likes and they are going to bring that in as well. Pt does not like Boost we tried here in hospital. - Have consulted Dieticians on staff for assistance with diet given intolerance to cold food and liquid diet. Have repleted potassium many times this admission. Odynophagia: - Since being on chemo; has been treated with nystatin recently. Receiving magic mouthwash swish and swallow here q4h PRN odynophagia. - Pt's PO intake better with liquid food. Have consulted dietary as above. Atrial fibrillation: - Pt without chest pain or palpitations, continues to be in AFib. - Pt on home metoprolol. Have stopped this today due to bradycardia. - Pt is on asa 81mg at home however NOT on chronic AC due to previous history of falls and CVA. Holding asa currently due to Heparin drip and coumadin and bleeding risk. Rectal cancer - Currently on chemo: - Per Hematology and anticoagulation clinic we should try tapering off of the prednisone. Decreased to 10mg PO daily today; will continue 10mg through the weekend and then discontinue. CODE STATUS: DNR/DNI, NO BLOOD PRODUCTS. PT is a Orthodox Diet: Full Liquid Diet with nutrition shake supplementation DVT ppx: Heparin drip for acute PE bridging to coumadin Dispo: med/surg with tele. On discharge both PT and OT recommend SNF for rehabilitation. Placement potentially available on Thursday pending PT/OT evaluation at that time. (2) Rectal bleed: (3) No blood products: (4) Altered mental status: (5) UTI (urinary tract infection): (6) Chronic systolic (congestive) heart failure: (7) ICD (implantable cardioverter-defibrillator) in place: (8) Hypokalemia: (9) Diarrhea: (10) Rectal adenocarcinoma: (11) CKD (chronic kidney disease) stage 2, GFR 60-89 ml/min: (12) CVA (cerebral vascular accident): (13) HLD (hyperlipidemia): (14) HTN (hypertension): (15) DM type 2 (diabetes mellitus, type 2): (16) Seizure: (17) Afib: (18) Malnutrition: Subjective Patient not doing well this morning, woke up and was feeling significantly nauseous, dry heaving on the side of the bed. The patient reported he felt this way overnight. Was given antinausea medication this morning and Pepcid and had some improvement. Patient still experiencing intermittent diarrhea, not tolerating his diet, not sleeping well. Had a discussion this morning with the patient regarding his symptoms. He states that they are all secondary to chemotherapy, and has been unable to find anything to stimulate his appetite and/or help him deal with the nausea. We had a discussion about the medication Marinol. He is interested in trying it I discussed with him the common side effects he verbalized understanding. Plan for trial of Marinol today otherwise answered all questions no acute concerns. Physical Exam Physical Exam: General: In acute distress from nausea and vomiting HEENT: Normocephalic atraumatic Neck: Trachea midline normal visual inspection Cardiac: Regular rate and rhythm I do not appreciate any significant murmurs rubs or gallops Respiratory: Coarse breath sounds bilaterally, rales and rhonchi present throughout all lung ruff, clear with coughing GI: Tender to palpation of the left side, will continue to monitor no rebound or guarding MSK: Moves all extremities Neuro: Alert and oriented Psych: Calm and cooperative Results & Data Vital Signs (Past 12 Hours) Vital Signs Temp Pulse Pulse Resp BP BP Pulse Ox 05/21/19 07:17 35.9 C L 85 18 102/55 L 98 05/21/19 03:06 36.6 C 67 20 127/79 98 05/21/19 00:50 122/67 05/20/19 23:30 79 05/20/19 23:07 36.9 C 61 20 90/57 L 99 Resident Activity Tracking Resident Involvement: Resident Care Provided Care Provided: Adult Hospital Medicine (1) UTI (urinary tract infection) Hematuria presence: without hematuria Urinary tract infection type: site unspecified Qualified Code(s): N39.0 - Urinary tract infection, site not specified (2) DM type 2 (diabetes mellitus, type 2) Diabetes mellitus complication status: without complication Diabetes mellitus senior care insulin use: with senior care use Qualified Code(s): E11.9 - Type 2 diabetes mellitus without complications; Z79.4 - half-way (current) use of insulin (3) Afib Atrial fibrillation type: chronic Qualified Code(s): I48.2 - Chronic atrial fibrillation (4) Diarrhea Diarrhea type: unspecified type Qualified Code(s): R19.7 - Diarrhea, unspecified (5) HLD (hyperlipidemia) Hyperlipidemia type: mixed hyperlipidemia Qualified Code(s): E78.2 - Mixed hyperlipidemia (6) Altered mental status Altered mental status type: unspecified Qualified Code(s): R41.82 - Altered mental status, unspecified (7) HTN (hypertension) Hypertension type: essential hypertension Qualified Code(s): I10 - Essential (primary) hypertension (8) CVA (cerebral vascular accident) CVA mechanism: embolism Laterality of affected vessel: left Precerebral and cerebral artery: middle cerebral artery Qualified Code(s): I63.412 - Cerebral infarction due to embolism of left middle cerebral artery
[2019-05-21] MEDS ORDERED: PHARMACY GLYCEMIC MGMT CONSULT PRN (08:10)
[2019-05-21] MEDS: INSULIN ASPART 100 UNITS/ML 3 ML PEN SC SCH ×4 (08:34→21:17)
[2019-05-21] MEDS: cephALEXin 500 MG CAP PO SCH ×2 (08:35→20:20)
[2019-05-21] MEDS: levETIRAcetam 500 MG TAB PO SCH ×2 (08:35→20:20)
[2019-05-21] MEDS: predniSONE 10 MG TABLET PO SCH (08:35)
[2019-05-21] MEDS: POTASSIUM CHLORIDE 20 MEQ TABCR PO SCH ×4 (08:37→13:30)
[2019-05-21] MEDS: HEPARIN 100 UNIT/ML 5ML FLUSH FLUSH PRN ×2 (08:46→21:28)
[2019-05-21] MEDS ORDERED: FAMOTIDINE 10 MG/ML 2ML VIAL IV SCH (09:00)
[2019-05-21] MEDS: FAMOTIDINE 20 MG in SYRINGE 3 ML IV SCH ×2 (09:32→20:21)
[2019-05-21] MEDS ORDERED: DRONABINOL 2.5 MG CAP PO PRN (11:42)
[2019-05-21] MEDS: NYSTATIN 30 ML, DEXAMETHASONE CONC 3.75 MG, DiphenhydrAMINE Syrup 300 MG, ORA-SWEET SYR... PO PRN ×3 (12:58→20:22)
[2019-05-21] MEDS: SUCRALFATE 1 GM/10 ML UDC PO SCH ×3 (13:30→20:19)
--- NOTE | 2019-05-21 14:12 | Pharmacy Report ---
Glycemic Control Consultation - Date of Service May 21, 2019 - Scope Scope: Glycemic Pharmacist consulted for glycemic control and to write orders per [facility] ED inpatient glycemic control protocol - Objective Weight: 92.9 kg Accuchecks BSG (last 24hrs): 05/20/19 05/20/19 05/21/19 16:43 20:04 06:49 Glucose 174 H POC Glucose 179 H 169 H 05/21/19 05/21/19 07:29 11:42 Glucose POC Glucose 171 H 163 H Laboratory Data (last 24hrs): 05/21/19 06:49 Potassium 2.6 L Carbon Dioxide 28 Anion Gap 8.0 Creatinine 0.70 Est Cr Clr Drug Dosing 112.4 HbA1c: 7.6% on 01/24/19 {outdated} - Recent Pertinent Medications Outpatient Anti-diabetic Regimen: * Levemir 10 units SQ HS * Chronic prednisone 20 mg PO daily The patient is currently receiving: * Basal insulin: None * Correctional Insulin: Novolog Correction per scale ACHS Goal Range: Low 140 mg/dL - High 180 mg/dL Correction Factor: 25 mg/dL/unit * Prandial insulin: Per carb ratio of 1 unit per 8 grams CHO consumed Risk Factors for Insulin Resistance: * Steroids * Infection Risk Factors for Insulin Sensitivity: * NPO - Assessment & Plan Assessment & Plan: ASSESSMENT: * 69yo T2DM male (possibly steroid induced) with adequate outpatient control per recent A1c. Will re-order since last value is outdated * BSGs have been well controlled since admission with current orders - less stringent glycemic control needed based on co-morbidities * Pt is NPO - basal insulin on hold. Ordinarily it is preferred to NOT hold basal but give a reduced dose. BSGs all <180 mg/dl so will continue to hold basal. May need to add a reduced dose back if PO intake increases. * CF/CR parameters seems adequate based on pt weight. Will lower goal range slightly instead of tightening parameters PLAN FOR INPATIENT GLYCEMIC CONTROL: * Basal insulin * N/A --> will start reduced outpatient dosing if AM Fasting BSG >180 * Bolus insulin * NovoLog per scale ACHS or Q6hrs while NPO * Goal Range: Low 110 mg/dL - High 140 mg/dL {lower goal range} * Correction Factor: 25 mg/dL/unit * Nutritional / Prandial insulin per carb ratio of 1 unit per 8 grams CHO consumed * Please note that the plan above was derived based on current level of insulin resistance and hospital stress. These recommendations are appropriate for inpatient admission only. Plan of care upon discharge will need to be reassessed to avoid potential outpatient hypo/hyperglycemia. Thank you.
[2019-05-21] MEDS: MoRPHine SULFATE 2 MG/ML CARP IV PRN (14:25)
[2019-05-21 15:05] LABS: BUN Creatinine Ratio 24.2 (10-20); Calcium 8.6 mg/dl (8.5-10.1); Creatinine Clr Calc Pharmacy 106.4 ml/min; Est GFR (African American) 108.3; Est GFR (Non-African American) 93.5; Potassium 2.7 mmol/L (3.5-5.1)
[2019-05-21] MEDS: POTASSIUM CHLORIDE / WTR 10 MEQ/100 ML PLCT IV SCH ×6 (15:06→20:19)
[2019-05-21] MEDS: TAMSULOSIN HCL 0.4 MG CAP PO SCH (20:20)
[2019-05-21] MEDS: DRONABINOL 2.5 MG CAP PO PRN (20:23)
[2019-05-22] MEDS: ONDANSETRON INJ 2 MG/ML 2 ML VIAL IV PRN ×2 (00:11→22:39)
[2019-05-22] MEDS: HEPARIN 100 UNIT/ML 5ML FLUSH FLUSH PRN (05:38)
[2019-05-22 05:52] LABS: Hematocrit (blood only) 35.8 % (42-52); Hemoglobin 12.1 g/dL (14.0-18.0); Mean Corpuscular Hemoglobin 32.6 pg (25-34); Mean Corpuscular Hgb Conc 33.8 g/dL (32-36); Mean Corpuscular Volume 96.5 fL (80-100); Mean Platelet Volume 10.6 fL (7.4-10.4); Nucleated RBC # (auto) 0.06 K/uL (0-0); Nucleated RBC % (auto) 2.2 %; Platelet Count 109 K/uL (130-400); RDW Coefficient of Variation 17.8 % (11.5-14.5); RDW Standard Deviation 61.2 fL (36.4-46.3); Red Blood Count 3.71 M/uL (4.7-6.1); White Blood Count 2.78 K/uL (4.8-10.8)
[2019-05-22 06:30] LABS: Partial Thromboplastin Ratio 2.6
[2019-05-22 06:36] LABS: INR 6.6 (0.9-1.1); Partial Thromboplastin Time 71.4 Seconds (21.0-31.0)
--- NOTE | 2019-05-22 07:48 | Hospitalist Progress Note ---
Date of Service May 22, 2019 Assessment & Plan (1) Pulmonary embolus, right: Pt is a 69 y/o M Restorationism with rectal adenocarcinoma status post radiation and currently on chemotherapy, chronic diarrhea, aortic valve replacement, chronic systolic heart failure with ejection fraction of 30-35%, nonischemic cardiomyopathy, recurrent syncope, ventricular tachycardia status post ICD placement on 01/25/2019, atrial fibrillation not on AC, DM2, BPH, hyperlipidemia, GERD, and left MCA territory CVA who presented to the emergency room after falling at home and being found by family less responsive than normal. Oral Mucositis Had a discussion with the patient regarding his chemotherapy symptoms, he reported nausea, lack of appetite, and overall malaise. Discussed with him considering Marinol for alleviation of his symptoms. Patient is interested. Started Marinol 2.5 mg 3 times daily on 05/21 patient tolerated well increase to 5 mg 3 times daily on 05/22. Would have a low threshold for further increasing the dose as he is currently in the hospital and can be monitored. Patient reports excellent improvement from Marinol therapy, has not used his PRN morphine since yesterday. -Marinol 5 mg p.o. 3 times daily -IV morphine 2 mg every 4 hours prn Pulmonary embolism (right sided): CT Abdomen and Pelvis 05/17/19 noted extensive right sided pulmonary embolus. Dr. Devries with anticoagulation clinic is following and recommended 3mg coumadin daily until at goal INR 2-3; may be discharged on enoxaparin 1mg/kg BID if bridging not complete by discharge. She will follow up with him in the outpatient. Have had extensive discussion with this patient and his family about the risk of bleeding on anticoagulation considering he is a Restorationism and will not accept blood products. Initially started on a heparin drip with Coumadin 3 mg/day patient became therapeutic on 05/21 DC'd heparin at that time. - Pt continues to saturate well on room air at this time and denies SOB, CP, palpitations, dizziness. - INR: 1.5->1.5->2.9->6.6->6.4 -05/22: Patient has an INR of 6.6 despite holding Coumadin yesterday. -Repeat PT/INR check INR of 6.4 trending in the correct direction we will hold off on vitamin K therapy for now. -Would consult Dr. Devries for recs regarding when to restart Coumadin Rectal bleeding: - Pt has a history of rectal bleeding and has had intermittent bloody diarrhea this admission. GI, Radiation oncology consulted and following. For outpatient follow up following discharge. - Pt denies rectal bleeding since yesterday AM. Hgb has been stable since Heparin drip was started -Trend am h/h -HGB: 11.2->11.4->11.3->10.9->11.9->10.5 -Follow-up repeat H&H at noon on 05/22 UTI: Pt is without abdominal pain, which he had a few days ago prior to beginning Abx for UTI. Has a history of prior UTI with pansensitive E. coli. UCx grew pansensitive E. coli this admission. CT Abdomen/Pelvis showed inflammation of the bladder suggestive of cystitis, no other acute process which would explain abdominal pain. UA positive for bacteria, LE, nitrites. 05/21 patient still complaining of suprapubic pain and tenderness, - Continue Keflex 500mg PO BID for complicated UTI started on 05/17/19. -Day 4/ Chronic systolic heart failure - Pt has a history of and follows with [facility] in heart failure clinic. - Pt has 1+ edema of bilateral LE tody but not fluid overloaded on lung exam. - On Lasix 20mg PO daily at home. Have given one dose and will assess for improvement. -Hypotensive today would refrain from further Lasix therapy -Gentle hydration 1 L LR at 80 mls/hr Unresponsive state/Agitation after syncopal event: - Change in mental status was likely due to concussion post fall and head t rauma. - Syncope likely from underlying PE. - CTH negative for acute intracranial abnormalities; MRI deferred due to need to turn off ICD in order to perform test which family was unwilling to do given risk/benefit. - EEG showed encephalopathy however did not show seizure activity, however has a history of seizures post stroke and therefore is on Keppra prophylaxis per neurology recommendations. - Patient is back to baseline mental status at this time. Alert and oriented x3. Hypotension / Malnutrition: Likely due to decreased PO intake, has been normotensive today and have adjusted diet to warm foods as patient unable to tolerate cold foods and drinks due to odynophagia. Encourage PO intake. Pt's family has chocolate ensure at home which the pt likes and they are going to bring that in as well. Pt does not like Boost we tried here in hospital. Have consulted Dieticians on staff for assistance with diet given intolerance to cold food and liquid diet. Have repleted potassium many times this admission. -Hypotensive this am -> Gentle Hydration 1L LR @80 mls/hr Odynophagia: Since being on chemo; has been treated with nystatin recently. Receiving magic mouthwash swish and swallow here q4h PRN odynophagia. Pt's PO intake better with liquid food. Have consulted dietary as above. -Resolved status post initiation of Marinol see oral mucositis Atrial fibrillation: - Pt without chest pain or palpitations, continues to be in AFib. - Pt on home metoprolol. Have stopped this today due to bradycardia. - Pt is on asa 81mg at home however prior to admission was not on chronic anticoagulation due to history of CVA and falls -Now on Coumadin - Holding asa currently due to Heparin drip and coumadin and bleeding risk. Rectal cancer - Currently on chemo: - Per Hematology and anticoagulation clinic we should try tapering off of the prednisone. Decreased to 10mg PO daily today; will continue 10mg through the weekend and then discontinue. CODE STATUS: DNR/DNI, NO BLOOD PRODUCTS. PT is a Restorationism Diet: Full Liquid Diet with nutrition shake supplementation DVT ppx: Heparin drip for acute PE bridging to coumadin Dispo: med/surg with tele. On discharge both PT and OT recommend SNF for rehabilitation. Placement potentially available on Thursday pending PT/OT evaluation at that time. Subjective Patient doing well this morning with significant improvement/resolution of his symptoms. Patient reports that he believes the Marinol is responsible for this effect. Although he had PRN 2 mg IV morphine he did not use any since yesterday. Patient is asked significantly pleased with his improvement and reports better quality of life. This morning his INR came back significantly elevated to 6.6, patient reports no signs or symptoms of anemia, advised him on the importance of being extra careful when he ambulates. All questions answered, no acute concerns. Physical Exam Physical Exam: General: No acute distress HEENT: Normocephalic atraumatic Neck: Normal to visual inspection, trachea midline Cardiac: Irregularly irregular rhythm, normal S1, normal S2, did not appreciate significant murmurs rubs or gallops, 1+ pedal edema bilaterally, negative calf tenderness Respiratory: Intermittent rhonchi that clear with coughing, symmetrical chest rise, no increased work of breathing GI: Normal bowel sounds, soft, nontender, nondistended MSK: Moves all extremities Skin: Bruising and ecchymosis Neuro: Alert and oriented x4 Psych: Calm, cooperative, less painful Results & Data Vital Signs (Past 12 Hours) Vital Signs Temp Pulse Pulse Resp BP Pulse Ox 05/22/19 07:36 36.3 C L 100 H 18 85/52 L 95 05/22/19 03:12 36.8 C 85 20 116/74 95 05/21/19 23:00 36.8 C 80 20 122/41 L 91 Laboratory Results 05/22/19 05/22/19 05/22/19 Range/Units 11:42 11:42 11:38 WBC (4.8-10.8) K/uL RBC (4.7-6.1) M/uL Hgb 10.5 L (14.0-18.0) g/dL Hct 31.4 L (42-52) % MCV (80-100) fL MCH (25-34) pg MCHC (32-36) g/dL RDW Std Deviation (36.4-46.3) fL RDW Coeff of Amandeep (11.5-14.5) % Plt Count (130-400) K/uL MPV (7.4-10.4) fL Absolute Nucleated RBC (0-0) K/uL Nucleated RBC % (auto) % PT Pending (9.0-12.0) Seconds INR Pending (0.9-1.1) APTT (21.0-31.0) Seconds PTT Ratio Sodium (136-145) mmol/L Potassium (3.5-5.1) mmol/L Chloride (98-107) mmol/L Carbon Dioxide (21-32) mmol/L Anion Gap (3-11) BUN (7-18) mg/dl Creatinine (0.6-1.4) mg/dl Est Cr Clr Drug Dosing ml/min Est GFR ( Amer) Est GFR (Non-Af Amer) BUN/Creatinine Ratio (10-20) Glucose (70-99) mg/dl POC Glucose 139 H (70-99) Estimat Average Glucose Hemoglobin A1c Calcium (8.5-10.1) mg/dl Total Bilirubin (0.2-1) mg/dl AST (15-37) U/L ALT (12-78) U/L Alkaline Phosphatase (45-117) U/L Total Protein (6.4-8.2) gm/dl Albumin (3.4-5.0) gm/dl Globulin (2.5-4.0) gm/dl Albumin/Globulin Ratio (0.9-2) 05/22/19 05/22/19 05/22/19 Range/Units 08:22 05:43 05:38 WBC 2.78 L (4.8-10.8) K/uL RBC 3.71 L (4.7-6.1) M/uL Hgb 12.1 L (14.0-18.0) g/dL Hct 35.8 L (42-52) % MCV 96.5 (80-100) fL MCH 32.6 (25-34) pg MCHC 33.8 (32-36) g/dL RDW Std Deviation 61.2 H (36.4-46.3) fL RDW Coeff of Amandeep 17.8 H (11.5-14.5) % Plt Count 109 L (130-400) K/uL MPV 10.6 H (7.4-10.4) fL Absolute Nucleated RBC 0.06 H (0-0) K/uL Nucleated RBC % (auto) 2.2 % PT (9.0-12.0) Seconds INR (0.9-1.1) APTT (21.0-31.0) Seconds PTT Ratio Sodium 134 L (136-145) mmol/L Potassium 3.8 D (3.5-5.1) mmol/L Chloride 105 (98-107) mmol/L Carbon Dioxide 19 L (21-32) mmol/L Anion Gap 11.0 (3-11) BUN 19 H (7-18) mg/dl Creatinine 1.09 (0.6-1.4) mg/dl Est Cr Clr Drug Dosing 71.2 ml/min Est GFR ( Amer) 79.3 Est GFR (Non-Af Amer) 68.4 BUN/Creatinine Ratio 17.2 (10-20) Glucose 169 H (70-99) mg/dl POC Glucose 149 H (70-99) Estimat Average Glucose Hemoglobin A1c Calcium 8.9 (8.5-10.1) mg/dl Total Bilirubin 0.5 (0.2-1) mg/dl AST 21 (15-37) U/L ALT 20 (12-78) U/L Alkaline Phosphatase 75 (45-117) U/L Total Protein 5.5 L (6.4-8.2) gm/dl Albumin 2.2 L (3.4-5.0) gm/dl Globulin 3.3 (2.5-4.0) gm/dl Albumin/Globulin Ratio 0.7 L (0.9-2) 05/22/19 05/22/19 05/21/19 Range/Units 05:38 05:38 20:37 WBC (4.8-10.8) K/uL RBC (4.7-6.1) M/uL Hgb (14.0-18.0) g/dL Hct (42-52) % MCV (80-100) fL MCH (25-34) pg MCHC (32-36) g/dL RDW Std Deviation (36.4-46.3) fL RDW Coeff of Amandeep (11.5-14.5) % Plt Count (130-400) K/uL MPV (7.4-10.4) fL Absolute Nucleated RBC (0-0) K/uL Nucleated RBC % (auto) % PT 59.0 H (9.0-12.0) Seconds INR 6.6 H* (0.9-1.1) APTT 71.4 H* (21.0-31.0) Seconds PTT Ratio 2.6 Sodium (136-145) mmol/L Potassium (3.5-5.1) mmol/L Chloride (98-107) mmol/L Carbon Dioxide (21-32) mmol/L Anion Gap (3-11) BUN (7-18) mg/dl Creatinine (0.6-1.4) mg/dl Est Cr Clr Drug Dosing ml/min Est GFR ( Amer) Est GFR (Non-Af Amer) BUN/Creatinine Ratio (10-20) Glucose (70-99) mg/dl POC Glucose 166 H (70-99) Estimat Average Glucose Pending Hemoglobin A1c Pending Calcium (8.5-10.1) mg/dl Total Bilirubin (0.2-1) mg/dl AST (15-37) U/L ALT (12-78) U/L Alkaline Phosphatase (45-117) U/L Total Protein (6.4-8.2) gm/dl Albumin (3.4-5.0) gm/dl Globulin (2.5-4.0) gm/dl Albumin/Globulin Ratio (0.9-2) 05/21/19 05/21/19 05/21/19 Range/Units 16:20 14:36 11:42 WBC (4.8-10.8) K/uL RBC (4.7-6.1) M/uL Hgb (14.0-18.0) g/dL Hct (42-52) % MCV (80-100) fL MCH (25-34) pg MCHC (32-36) g/dL RDW Std Deviation (36.4-46.3) fL RDW Coeff of Amandeep (11.5-14.5) % Plt Count (130-400) K/uL MPV (7.4-10.4) fL Absolute Nucleated RBC (0-0) K/uL Nucleated RBC % (auto) % PT (9.0-12.0) Seconds INR (0.9-1.1) APTT (21.0-31.0) Seconds PTT Ratio Sodium 137 (136-145) mmol/L Potassium 2.7 L (3.5-5.1) mmol/L Chloride 103 (98-107) mmol/L Carbon Dioxide 25 (21-32) mmol/L Anion Gap 9.0 (3-11) BUN 18 (7-18) mg/dl Creatinine 0.74 (0.6-1.4) mg/dl Est Cr Clr Drug Dosing 106.4 ml/min Est GFR ( Amer) 108.3 Est GFR (Non-Af Amer) 93.5 BUN/Creatinine Ratio 24.2 H (10-20) Glucose 169 H (70-99) mg/dl POC Glucose 147 H 163 H (70-99) Estimat Average Glucose Hemoglobin A1c Calcium 8.6 (8.5-10.1) mg/dl Total Bilirubin (0.2-1) mg/dl AST (15-37) U/L ALT (12-78) U/L Alkaline Phosphatase (45-117) U/L Total Protein (6.4-8.2) gm/dl Albumin (3.4-5.0) gm/dl Globulin (2.5-4.0) gm/dl Albumin/Globulin Ratio (0.9-2) Medications Administered Current Inpatient Medications Cephalexin HCl (Keflex) 500 mg PO BID JENNIFFER Stop: 05/29/19 17:59 Last Admin: 05/22/19 09:22 Dose: 500 mg Documented by: Nystatin 30 ml/ Dexamethasone 3.75 mg/ Diphenhydramine HCl 300 mg/ Sucrose 45 ml/Microcrystalline Cellulose 45 ml/ BARCODE IDENTIFIER 1 ea 0 ml PO Q4H PRN PRN Reason: Pain Stop: 06/18/19 14:38 Last Admin: 05/21/19 20:22 Dose: 30 ml Documented by: Dextrose (Dextrose 50%) 25 - 50 ml IV UD PRN; Protocol PRN Reason: Hypoglycemia Protocol Stop: 06/16/19 21:44 Dronabinol (Marinol) 5 mg PO TID PRN PRN Reason: chemo side effects Stop: 06/20/19 11:41 Last Admin: 05/21/19 20:23 Dose: 5 mg Documented by: Glucagon (Glucagen) 1 mg IM UD PRN; Protocol PRN Reason: Hypoglycemia Protocol Stop: 06/16/19 21:44 Glucose (Glucose 40%) 15 - 30 gm PO UD PRN; Protocol PRN Reason: Hypoglycemia Protocol Stop: 06/16/19 21:44 Glucose (Dex4 Glucose) 4 - 8 tabs PO UD PRN; Protocol PRN Reason: Hypoglycemia Protocol Stop: 06/16/19 21:44 Haloperidol Lactate (Haldol) 5 mg IM Q12H PRN PRN Reason: Agitation Stop: 06/13/19 18:33 Heparin Sodium (Porcine) (Heparin Sod 100 Unit/Ml Flush) 5 ml FLUSH PRN PRN PRN Reason: Flush Stop: 06/17/19 05:59 Last Admin: 05/22/19 05:38 Dose: 5 ml Documented by: Heparin Sodium/Dextrose (Heparin Sodium/Dextrose) 25,000 units in 500 mls @ 0 mls/hr IV .Q0M [facility]; Protocol Stop: 06/16/19 15:59 Last Titration: 05/21/19 08:19 Dose: 0 units/hr, 0 mls/hr Documented by: Famotidine 20 mg/ Syringe 5 mls @ 2.5 mls/min IV BID [facility] Stop: 06/20/19 08:59 Last Admin: 05/22/19 09:33 Dose: 2.5 mls/min Documented by: Lactated Ringer's (Lr) 1,000 mls @ 80 mls/hr IV .[id number] [facility] Stop: 05/22/19 20:44 Last Admin: 05/22/19 09:21 Dose: 80 mls/hr Documented by: Insulin Aspart (Novolog Flexpen) 0 units SC ACHS [facility] Stop: 06/16/19 21:59 Last Admin: 05/22/19 09:21 Dose: 3 units Documented by: Levetiracetam (Keppra) 500 mg PO BID [facility] Stop: 06/15/19 20:59 Last Admin: 05/22/19 09:23 Dose: 500 mg Documented by: Metoprolol Succinate (Toprol Xl) 25 mg PO QAM [facility] Stop: 06/16/19 08:59 Last Admin: 05/20/19 08:23 Dose: 25 mg Documented by: Miscellaneous (Carbohydrates For Hypoglycemia) 15 - 30 gm PO UD PRN PRN Reason: Hypoglycemia Treatment Stop: 06/16/19 21:44 Miscellaneous Information (Consult Glycemic Management Pharmacy) 1 ea N/A UD PRN PRN Reason: Consult Stop: 06/20/19 08:09 Morphine Sulfate (Roxanol) 5 mg PO Q4H PRN PRN Reason: Breakthrough Pain Stop: 05/28/19 10:14 Last Admin: 05/21/19 01:33 Dose: 5 mg Documented by: Morphine Sulfate (Morphine Sulfate) 2 mg IV Q4H PRN PRN Reason: Pain Stop: 06/04/19 12:38 Last Admin: 05/21/19 14:25 Dose: 2 mg Documented by: Ondansetron HCl (Zofran) 4 mg IV Q6H PRN PRN Reason: Nausea Stop: 06/13/19 04:05 Last Admin: 05/22/19 00:11 Dose: 4 mg Documented by: Prednisone (Prednisone) 10 mg PO DAILY [facility] Stop: 06/19/19 08:59 Last Admin: 05/22/19 09:23 Dose: 10 mg Documented by: Sucralfate (Carafate) 1 gm PO QID [facility] Stop: 06/20/19 12:59 Last Admin: 05/22/19 09:21 Dose: 1 gm Documented by: Tamsulosin HCl (Flomax) 0.4 mg PO HS [facility] Stop: 06/16/19 20:59 Last Admin: 05/21/19 20:20 Dose: Not Given Documented by: Warfarin Sodium (Coumadin) 3 mg PO DAILY@1600 [facility] Stop: 06/19/19 15:59 Last Admin: 05/20/19 16:14 Dose: 3 mg Documented by: Resident Activity Tracking Resident Involvement: Resident Care Provided Care Provided: Adult Hospital Medicine
[2019-05-22 07:51] LABS: Albumin Globulin Ratio 0.7 (0.9-2); Albumin Level 2.2 gm/dl (3.4-5.0); BUN Creatinine Ratio 17.2 (10-20); Bilirubin,Total 0.5 mg/dl (0.2-1); Calcium 8.9 mg/dl (8.5-10.1); Creatinine Clr Calc Pharmacy 71.2 ml/min; Est GFR (African American) 79.3; Est GFR (Non-African American) 68.4; Globulin 3.3 gm/dl (2.5-4.0); Potassium 3.8 mmol/L (3.5-5.1); Total Protein 5.5 gm/dl (6.4-8.2)
[2019-05-22] MEDS ORDERED: LACTATED RINGER'S 1,000 ML IV SCH (08:15)
[2019-05-22] MEDS: INSULIN ASPART 100 UNITS/ML 3 ML PEN SC SCH ×4 (09:21→20:33)
[2019-05-22] MEDS: SUCRALFATE 1 GM/10 ML UDC PO SCH ×4 (09:21→20:23)
[2019-05-22] MEDS: cephALEXin 500 MG CAP PO SCH ×2 (09:22→20:24)
[2019-05-22] MEDS: predniSONE 10 MG TABLET PO SCH (09:23)
[2019-05-22] MEDS: levETIRAcetam 500 MG TAB PO SCH ×2 (09:23→20:24)
[2019-05-22] MEDS: FAMOTIDINE 20 MG in SYRINGE 3 ML IV SCH (09:33)
[2019-05-22 11:49] LABS: Hematocrit (blood only) 31.4 % (42-52); Hemoglobin 10.5 g/dL (14.0-18.0)
[2019-05-22 12:07] LABS: Prothrombin Time 57.4 Seconds (9.0-12.0)
[2019-05-22 12:11] LABS: INR 6.4 (0.9-1.1)
[2019-05-22] MEDS: DRONABINOL 2.5 MG CAP PO PRN (16:46)
[2019-05-22] MEDS: TAMSULOSIN HCL 0.4 MG CAP PO SCH (20:23)
[2019-05-22] MEDS: FAMOTIDINE 20 MG TAB PO SCH (20:26)
[2019-05-23] MEDS: HEPARIN 100 UNIT/ML 5ML FLUSH FLUSH PRN ×2 (05:37→14:32)
[2019-05-23 05:42] LABS: Estimated Average Glucose 154 mg/dl
[2019-05-23 06:28] LABS: Hematocrit (blood only) 31.5 % (42-52); Hemoglobin 10.5 g/dL (14.0-18.0); Mean Corpuscular Hemoglobin 32.1 pg (25-34); Mean Corpuscular Hgb Conc 33.3 g/dL (32-36); Mean Corpuscular Volume 96.3 fL (80-100); Mean Platelet Volume 11.9 fL (7.4-10.4); Nucleated RBC # (auto) 0.04 K/uL (0-0); Nucleated RBC % (auto) 1.4 %; Platelet Count 103 K/uL (130-400); RDW Coefficient of Variation 17.7 % (11.5-14.5); RDW Standard Deviation 62.3 fL (36.4-46.3); Red Blood Count 3.27 M/uL (4.7-6.1); White Blood Count 2.76 K/uL (4.8-10.8)
[2019-05-23 06:45] LABS: Partial Thromboplastin Ratio 1.5; Prothrombin Time 41.2 Seconds (9.0-12.0)
[2019-05-23 06:56] LABS: INR 4.5 (0.9-1.1); Partial Thromboplastin Time 41.9 Seconds (21.0-31.0)
[2019-05-23 07:06] LABS: BUN Creatinine Ratio 19.2 (10-20); Creatinine Clr Calc Pharmacy 110.1 ml/min; Est GFR (African American) 110.2; Est GFR (Non-African American) 95.1; Potassium 3.2 mmol/L (3.5-5.1)
[2019-05-23 07:42] LABS: Partial Thromboplastin Ratio 1.5; Partial Thromboplastin Time 39.6 Seconds (21.0-31.0); Prothrombin Time 43.2 Seconds (9.0-12.0)
[2019-05-23 07:48] LABS: INR 4.7 (0.9-1.1)
[2019-05-23 08:08] LABS: Eosinophils # (auto) 0.02 K/uL (0-0.5); Eosinophils % (auto) 0.7 %; Giant Platelets 1+; Immature Granulocytes # (auto) 0.01 K/uL (0.00-0.02); Immature Granulocytes % (auto) 0.4 %; Lymphocytes # (auto) 0.41 K/uL (1.2-3.4); Lymphocytes % (auto) 14.9 %; Monocytes # (auto) 1.01 K/uL (0.11-0.59); Monocytes % (auto) 36.6 %; Neutrophils # (auto) 1.31 K/uL (1.4-6.5); Neutrophils % (auto) 47.4 %; Toxic Granulation 2+
[2019-05-23] MEDS: FAMOTIDINE 20 MG TAB PO SCH ×2 (08:12→20:19)
[2019-05-23] MEDS: cephALEXin 500 MG CAP PO SCH ×2 (08:14→20:19)
[2019-05-23] MEDS: levETIRAcetam 500 MG TAB PO SCH ×2 (08:14→20:18)
[2019-05-23] MEDS: INSULIN ASPART 100 UNITS/ML 3 ML PEN SC SCH ×4 (08:15→20:23)
[2019-05-23] MEDS: SUCRALFATE 1 GM/10 ML UDC PO SCH ×4 (08:15→20:18)
[2019-05-23] MEDS: METOPROLOL SUCC 25MG EXT REL TAB PO SCH (08:16)
--- NOTE | 2019-05-23 08:49 | Pharmacy Report ---
Pharmacy Glycemic Short Note 2 - Date of Service May 23, 2019 - Glycemic Short BSG Results (Last 24 hours): 05/22/19 05/22/19 05/22/19 11:38 16:37 20:17 Glucose POC Glucose 139 H 134 H 133 H 05/23/19 05/23/19 05:37 07:32 Glucose 111 H POC Glucose 112 H OUTPATIENT ANTIDIABETIC REGIMEN: * Levemir 10 units qHS * A1c 7% on 05/22/19 * Also on chronic prednisone 20 mg qAM ASSESSMENT: 05/23 * Mr. Price received only 3 units of insulin yesterday * PO intake remains poor * Prednisone was discontinued this AM, but then restarted at a dose of 20 mg daily * Fasting BSG = 111 mg/dL; no need to resume basal insulin * Initially loosened Novolog parameters but will resume previous parameters now that prednisone will be continued 05/22 * 69yo T2DM male (possibly steroid induced) with adequate outpatient control per recent A1c. Will re-order since last value is outdated * BSGs have been well controlled since admission with current orders - less stringent glycemic control needed based on co-morbidities * Pt is NPO - basal insulin on hold. Ordinarily it is preferred to NOT hold basal but give a reduced dose. BSGs all <180 mg/dl so will continue to hold basal. May need to add a reduced dose back if PO intake increases. * CF/CR parameters seems adequate based on pt weight. Will lower goal range slightly instead of tightening parameters PLAN FOR INPATIENT GLYCEMIC CONTROL: * Basal insulin * Continue to hold since fasting is below goal * Bolus insulin - no change * NovoLog per scale ACHS or Q6hrs while NPO * Goal Range: Low 110 mg/dL - High 140 mg/dL * Correction Factor: 25 mg/dL/unit * Nutritional / Prandial insulin per carb ratio of 1 unit per 8 grams CHO consumed PLAN FOR DISCHARGE: * A1c = 7% on 05/22/19 * Goal A1c < 8% based on age/comorbidities * Consider holding Levemir if PO intake to remain poor. Otherwise, may resume at usual dose since prednisone has been continued.
[2019-05-23] MEDS: POTASSIUM CHLORIDE / WTR 10 MEQ/100 ML PLCT IV SCH ×4 (09:47→13:33)
[2019-05-23] MEDS: NYSTATIN 30 ML, DEXAMETHASONE CONC 3.75 MG, DiphenhydrAMINE Syrup 300 MG, ORA-SWEET SYR... PO SCH ×4 (09:48→20:22)
--- NOTE | 2019-05-23 10:49 | Hospitalist Progress Note ---
Date of Service May 23, 2019 Assessment & Plan (1) Pulmonary embolus, right: Pt is a 69 y/o M Hindu with rectal adenocarcinoma status post radiation and currently on chemotherapy, chronic diarrhea, aortic valve replacement, chronic systolic heart failure with ejection fraction of 30-35%, nonischemic cardiomyopathy, recurrent syncope, ventricular tachycardia status post ICD placement on 01/25/2019, atrial fibrillation not on AC, DM2, BPH, hyperlipidemia, GERD, and left MCA territory CVA who presented to the emergency room after falling at home and being found by family less responsive than normal. Now with difficulty swallowing due to throat pain and deconditioning. Oral Mucositis / Deconditioning / Decreased PO intake - Continue Marinol 5mg 3 times daily. -IV morphine 2 mg every 4 hours prn. - has magic mouthwash now q4h scheduled. Pulmonary embolism (right sided): - CT Abdomen and Pelvis 05/17/19 noted extensive right sided pulmonary embolus. - INR: 1.5->1.5->2.9->6.6->6.4 -> 4.7. Will follow INR daily and hold warfarin until therapeutic and/or two more doses, will start warfarin again likely Thursday at 2mg TTS, 1mg all other days. Heparin d/c'ed. - Pt without signs of active bleeding, Hgb stable. Denies SOB, CP, palpitations, dizziness. - Continue to follow Hgb (HGB: 11.2->11.4->11.3->10.9->11.9->10.5). Rectal bleeding: - Pt has a history of rectal bleeding and has had intermittent bloody diarrhea this admission. GI, Radiation oncology consulted and following. For outpatient follow up following discharge. - Pt denies rectal bleeding today. Hgb has been stable. - CBC qAM. UTI: - Pt is without abdominal pain, which he had a few days ago prior to beginning Abx for UTI. Has a history of prior UTI with pansensitive E. coli. UCx and grew pansensitive E. coli this admission. - CT Abdomen/Pelvis showed inflammation of the bladder suggestive of cystitis, no other acute process which would explain abdominal pain. - UA positive for bacteria, LE, nitrites. - Continue Keflex 500mg PO BID for complicated UTI started on 05/17/19. Will send to SNF with further treatment. Chronic systolic heart failure - Pt has a history of and follows with [facility] in heart failure clinic. - Pt has 1+ edema of bilateral LE today but not fluid overloaded on lung exam. - On Lasix 20mg PO daily at home. Hypotensive today would refrain from further Lasix therapy unless overloaded on exam. - For outpatient, will suggest Lasix PRN weight gain/ LE edema. Unresponsive state/Agitation after syncopal event: - Change in mental status was likely due to concussion post fall and head trauma. - Syncope likely from underlying PE. - CTH negative for acute intracranial abnormalities; MRI deferred due to need to turn off ICD in order to perform test which family was unwilling to do given risk/benefit. - EEG showed encephalopathy however did not show seizure activity, however has a history of seizures post stroke and therefore is on Keppra prophylaxis per neurology recommendations. - Patient is back to baseline mental status at this time. Alert and oriented x3. Hypotension / Malnutrition: - Likely due to decreased PO intake, has been normotensive today and have adjusted diet to warm foods as patient unable to tolerate cold foods and drinks due to odynophagia. Encourage PO intake. Pt's family has chocolate ensure at home which the pt likes and they are going to bring that in as well. Pt does not like Boost we tried here in hospital. Have consulted Dieticians on staff for ass istance with diet given intolerance to cold food and liquid diet. Have repleted potassium many times this admission. -Hypotensive yesterday -> Gentle Hydration 1L LR @80 mls/hr; tolerated well. Pt normotensive today. Odynophagia: - Since being on chemo; has been treated with nystatin recently. Receiving magic mouthwash swish and swallow here q4h scheduled odynophagia. Pt's PO intake better with liquid food. - Will continue Marinol 5mg TID. Atrial fibrillation: - Pt without chest pain or palpitations, continues to be in AFib. - Pt on home metoprolol. - Pt is on asa 81mg at home however prior to admission was not on chronic anticoagulation due to history of CVA and falls. - Now transitioning to warfarin however pt with supratherapeutic INR so holding until therapeutic. Rectal cancer - Currently on chemo: - Per Hematology and anticoagulation clinic we should try tapering off of the prednisone. Increased to 20mg PO daily today (baseline dose at home) due to his increase in dysphagia and his lack of appetite. Pt was initially on this medication for appetite stimulation but I suspect that the steroid was allev iating some mucosal inflammation making it easier to eat. CODE STATUS: DNR/DNI, NO BLOOD PRODUCTS. PT is a Hindu Diet: Full Liquid Diet with nutrition shake supplementation DVT ppx: Heparin drip for acute PE bridging to coumadin Dispo: med/surg with tele. On discharge both PT and OT recommend SNF for rehabilitation. Placement potentially available tomorrow pending insurance and bed. Supervising Physician Co-Signing Physician Notes I personally examined the patient and verified all vieira points of history and exam, discussed case, and agree with decision making with Dr Cline. Doing better. Patient seen twiceonce walking with physical therapy, then later whenever he was taking a rest. Seem to be walking well. No new issues noted. Vitals noted, in general he is awake and pleasant walking well no distress. HEENT normocephalic atraumatic mucous members are moist. Breathing is unlabored no accessory muscle use good effort. Gait was reasonably stable with a walker and therapy assist. Rectal cancercontinue supportive care. PErelated to rectal cancercontinue anticoagulation Coumadin coagulopathytitrating down Syncopal eventslikely med related plus vagal given that they constantly happened in the bathroom. Meds have been reduced HFrEFtitrate meds as best as possible. Currently appearing to have no respiratory distress. SeizuresKeppra Otherwise as above Dispoawaiting SNF/rehab type options. Subjective Pt without acute events overnight. Continues to have sore throat making it very difficult for him to eat. No CP, SOB, fevers or chills, no rectal bleeding, still with intermittent diarrhea but no water in the stool. Review of Systems Constitutional: + fatigue; no fever and no chills Respiratory: no cough, no dyspnea and no wheezing Cardiovascular: no chest pain, no palpitations and no edema Gastrointestinal: + diarrhea/loose stools; no abdominal pain and no constipation Physical Exam Constitutional: well developed and + thin Respiratory: normal respiratory effort, lungs clear to auscultation Lungs clear after cough. Cardiovascular: HR irregularly irregular, no murmurs, trace edema bilateral LE. Gastrointestinal (Abdomen): normal bowel sounds, soft, nontender, no hepatosplenomegaly Skin: no rashes, warm and dry Psychiatric: A+Ox3, euthymic affect Results & Data Vital Signs (Past 12 Hours) Vital Signs Temp Pulse Pulse Resp BP BP Pulse Ox 05/23/19 08:53 93/63 L 96/65 L 05/23/19 07:12 82 05/23/19 06:59 36.7 C 76 18 95/67 L 96 05/23/19 03:09 36.9 C 87 20 107/66 95 05/22/19 23:28 37.1 C 71 18 107/52 L 94 Laboratory Results Laboratory Results - last 24 hr 05/22/19 05/22/19 05/22/19 05:38 16:37 20:17 WBC RBC Hgb Hct MCV MCH MCHC RDW Std Deviation RDW Coeff of Amandeep Plt Count MPV Immature Gran % (Auto) Neut % (Auto) Lymph % (Auto) [place] % (Auto) Eos % (Auto) Baso % (Auto) Immature Gran # (Auto) Neut # (Auto) Lymph # (Auto) [place] # (Auto) Eos # (Auto) Baso # (Auto) Absolute Nucleated RBC Nucleated RBC % (auto) Toxic Granulation Giant Platelets PT INR APTT PTT Ratio Sodium Potassium Chloride Carbon Dioxide Anion Gap BUN Creatinine Est Cr Clr Drug Dosing Est GFR ( Amer) Est GFR (Non-Af Amer) BUN/Creatinine Ratio Glucose POC Glucose 134 H 133 H Estimat Average Glucose 154 Hemoglobin A1c 7.0 H Calcium 05/23/19 05/23/19 05/23/19 05:37 05:37 05:37 WBC 2.76 L RBC 3.27 L Hgb 10.5 L Hct 31.5 L MCV 96.3 MCH 32.1 MCHC 33.3 RDW Std Deviation 62.3 H RDW Coeff of Amandeep 17.7 H Plt Count 103 L MPV 11.9 H Immature Gran % (Auto) 0.4 Neut % (Auto) 47.4 Lymph % (Auto) 14.9 [place] % (Auto) 36.6 Eos % (Auto) 0.7 Baso % (Auto) 0.0 Immature Gran # (Auto) 0.01 Neut # (Auto) 1.31 L Lymph # (Auto) 0.41 L [place] # (Auto) 1.01 H Eos # (Auto) 0.02 Baso # (Auto) 0.00 Absolute Nucleated RBC 0.04 H Nucleated RBC % (auto) 1.4 Toxic Granulation 2+ Giant Platelets 1+ PT 41.2 H INR 4.5 H APTT 41.9 H PTT Ratio 1.5 Sodium 139 Potassium 3.2 L D Chloride 106 Carbon Dioxide 27 Anion Gap 7.0 BUN 14 Creatinine 0.71 D Est Cr Clr Drug Dosing 110.1 Est GFR ( Amer) 110.2 Est GFR (Non-Af Amer) 95.1 BUN/Creatinine Ratio 19.2 Glucose 111 H POC Glucose Estimat Average Glucose Hemoglobin A1c Calcium 9.0 05/23/19 05/23/19 05/23/19 07:14 07:32 11:29 WBC RBC Hgb Hct MCV MCH MCHC RDW Std Deviation RDW Coeff of Amandeep Plt Count MPV Immature Gran % (Auto) Neut % (Auto) Lymph % (Auto) [place] % (Auto) Eos % (Auto) Baso % (Auto) Immature Gran # (Auto) Neut # (Auto) Lymph # (Auto) [place] # (Auto) Eos # (Auto) Baso # (Auto) Absolute Nucleated RBC Nucleated RBC % (auto) Toxic Granulation Giant Platelets PT 43.2 H INR 4.7 H APTT 39.6 H PTT Ratio 1.5 Sodium Potassium Chloride Carbon Dioxide Anion Gap BUN Creatinine Est Cr Clr Drug Dosing Est GFR ( Amer) Est GFR (Non-Af Amer) BUN/Creatinine Ratio Glucose POC Glucose 112 H 136 H Estimat Average Glucose Hemoglobin A1c Calcium Medications Administered Current Medications Cephalexin HCl (Keflex) 500 mg PO BID [facility] Stop: 05/29/19 17:59 Last Admin: 05/23/19 08:14 Dose: 500 mg Documented by: Nystatin 30 ml/ Dexamethasone 3.75 mg/ Diphenhydramine HCl 300 mg/ Sucrose 45 ml/Microcrystalline Cellulose 45 ml/ BARCODE IDENTIFIER 1 ea 0 ml PO Q4H JENNIFFER Stop: 06/22/19 08:59 Last Admin: 05/23/19 13:35 Dose: 5 ml Documented by: Dextrose (Dextrose 50%) 25 - 50 ml IV UD PRN; Protocol PRN Reason: Hypoglycemia Protocol Stop: 06/16/19 21:44 Dronabinol (Marinol) 5 mg PO TID PRN PRN Reason: chemo side effects Stop: 06/20/19 11:41 Last Admin: 05/22/19 16:46 Dose: 5 mg Documented by: Famotidine (Pepcid) 20 mg PO BID [facility]; Protocol Stop: 06/21/19 20:59 Last Admin: 05/23/19 08:12 Dose: 20 mg Documented by: Glucagon (Glucagen) 1 mg IM UD PRN; Protocol PRN Reason: Hypoglycemia Protocol Stop: 06/16/19 21:44 Glucose (Glucose 40%) 15 - 30 gm PO UD PRN; Protocol PRN Reason: Hypoglycemia Protocol Stop: 06/16/19 21:44 Glucose (Dex4 Glucose) 4 - 8 tabs PO UD PRN; Protocol PRN Reason: Hypoglycemia Protocol Stop: 06/16/19 21:44 Haloperidol Lactate (Haldol) 5 mg IM Q12H PRN PRN Reason: Agitation Stop: 06/13/19 18:33 Heparin Sodium (Porcine) (Heparin Sod 100 Unit/Ml Flush) 5 ml FLUSH PRN PRN PRN Reason: Flush Stop: 06/17/19 05:59 Last Admin: 05/23/19 14:32 Dose: 5 ml Documented by: Heparin Sodium/Dextrose (Heparin Sodium/Dextrose) 25,000 units in 500 mls @ 0 mls/hr IV .Q0M [facility]; Protocol Stop: 06/16/19 15:59 Last Titration: 05/23/19 01:55 Dose: Infused Documented by: Insulin Aspart (Novolog Flexpen) 0 units SC ACHS [facility]; Protocol Stop: 06/16/19 21:59 Last Admin: 05/23/19 12:01 Dose: Not Given Documented by: Levetiracetam (Keppra) 500 mg PO BID [facility] Stop: 06/15/19 20:59 Last Admin: 05/23/19 08:14 Dose: 500 mg Documented by: Metoprolol Succinate (Toprol Xl) 25 mg PO QAM [facility] Stop: 06/16/19 08:59 Last Admin: 05/23/19 08:16 Dose: Not Given Documented by: Miscellaneous (Carbohydrates For Hypoglycemia) 15 - 30 gm PO UD PRN PRN Reason: Hypoglycemia Treatment Stop: 06/16/19 21:44 Miscellaneous Information (Consult Glycemic Management Pharmacy) 1 ea N/A UD PRN PRN Reason: Consult Stop: 06/20/19 08:09 Morphine Sulfate (Roxanol) 5 mg PO Q4H PRN PRN Reason: Breakthrough Pain Stop: 05/28/19 10:14 Last Admin: 05/21/19 01:33 Dose: 5 mg Documented by: Morphine Sulfate (Morphine Sulfate) 2 mg IV Q4H PRN PRN Reason: Pain Stop: 06/04/19 12:38 Last Admin: 05/21/19 14:25 Dose: 2 mg Documented by: Ondansetron HCl (Zofran) 4 mg IV Q6H PRN PRN Reason: Nausea Stop: 06/13/19 04:05 Last Admin: 05/22/19 22:39 Dose: 4 mg Documented by: Prednisone (Prednisone) 20 mg PO DAILY [facility] Stop: 06/22/19 08:59 Last Admin: 05/23/19 11:16 Dose: 20 mg Documented by: Sucralfate (Carafate) 1 gm PO QID [facility] Stop: 06/20/19 12:59 Last Admin: 05/23/19 12:02 Dose: 1 gm Documented by: Tamsulosin HCl (Flomax) 0.4 mg PO HS [facility] Stop: 06/16/19 20:59 Last Admin: 05/22/19 20:23 Dose: 0.4 mg Documented by: Warfarin Sodium (Coumadin) 3 mg PO DAILY@1600 [facility] Stop: 06/19/19 15:59 Last Admin: 05/20/19 16:14 Dose: 3 mg Documented by: Resident Activity Tracking Resident Involvement: Resident Care Provided Care Provided: Adult Hospital Medicine
[2019-05-23] MEDS: predniSONE 20 MG TAB PO SCH (11:16)
[2019-05-23] MEDS: MoRPHine SULFATE 2 MG/ML CARP IV PRN (16:42)
--- NOTE | 2019-05-23 17:27 | Billing Data ---
Coding Level of Care Code 30345 Subseq Hosp Care Lvl 2
[2019-05-23] MEDS: TAMSULOSIN HCL 0.4 MG CAP PO SCH (20:19)
[2019-05-24] MEDS: NYSTATIN 30 ML, DEXAMETHASONE CONC 3.75 MG, DiphenhydrAMINE Syrup 300 MG, ORA-SWEET SYR... PO SCH ×4 (00:56→13:02)
[2019-05-24 05:05] VITALS: O2SAT 96
[2019-05-24] MEDS: cephALEXin 500 MG CAP PO SCH (08:55)
[2019-05-24] MEDS: SUCRALFATE 1 GM/10 ML UDC PO SCH ×3 (08:55→13:02)
[2019-05-24] MEDS: levETIRAcetam 500 MG TAB PO SCH (08:55)
[2019-05-24] MEDS: FAMOTIDINE 20 MG TAB PO SCH (08:56)
[2019-05-24] MEDS: METOPROLOL SUCC 25MG EXT REL TAB PO SCH (08:56)
[2019-05-24] MEDS: predniSONE 20 MG TAB PO SCH (08:56)
[2019-05-24] MEDS: INSULIN ASPART 100 UNITS/ML 3 ML PEN SC SCH ×2 (08:58→13:04)
[2019-05-24] MEDS: HEPARIN 100 UNIT/ML 5ML FLUSH FLUSH PRN (09:02)
[2019-05-24 09:13] LABS: Hematocrit (blood only) 32.8 % (42-52); Hemoglobin 10.9 g/dL (14.0-18.0); Mean Corpuscular Hemoglobin 32.1 pg (25-34); Mean Corpuscular Hgb Conc 33.2 g/dL (32-36); Mean Corpuscular Volume 96.5 fL (80-100); Nucleated RBC # (auto) 0.03 K/uL (0-0); Nucleated RBC % (auto) 0.6 %; Platelet Count 113 K/uL (130-400); RDW Coefficient of Variation 17.6 % (11.5-14.5); RDW Standard Deviation 61.5 fL (36.4-46.3); White Blood Count 5.23 K/uL (4.8-10.8)
[2019-05-24 09:39] LABS: Prothrombin Time 34.5 Seconds (9.0-12.0)
[2019-05-24] MEDS ORDERED: POTASSIUM CHLORIDE 10 MEQ TABCR PO STA (09:44)
[2019-05-24 09:53] LABS: INR 3.7 (0.9-1.1)
[2019-05-24 10:41] LABS: BUN Creatinine Ratio 17.3 (10-20); Calcium 8.9 mg/dl (8.5-10.1); Creatinine Clr Calc Pharmacy 118.3 ml/min; Est GFR (African American) 114.2; Est GFR (Non-African American) 98.6; Potassium 3.5 mmol/L (3.5-5.1)
[2019-05-24 12:09] VITALS: BP 93/61; TEMP 97.3
--- NOTE | 2019-05-24 12:17 | Discharge Summary ---
Date of Service May 24, 2019 Admission HPI Per Admitting Provider The patient is a 69-year-old male with a past medical history including rectal adenocarcinoma status post radiation and currently on chemotherapy, chronic diarrhea, aortic valve replacement, chronic systolic heart failure with ejection fraction of 30 to 35%, nonischemic cardia myopathy, recurrent syncope, ventricular tachycardia status post ICD placement on 01/25/2019, atrial fibrillation, diabetes mellitus type 2, BPH, hyperlipidemia, GERD and left MCA territory CVA. He was most recently admitted to [facility] from 04/01-04/03 for a syncopal episode while in the bathroom. He presents to the emergency department today with an unresponsive state, presumptively related to CVA and/ or postictal state. Admission Exam Per Admitting Provider The patient is obtunded, blood at the base of his nostrils, lying in bed with nonrebreather mask on, and in no acute distress. HEENT--PERRL, EOMI, mucous membranes and oropharynx dry. Neck--No JVD. No bruits. Thyroid normal, trachea midline, no adenopathy. Heart--normal S1 and S2. No murmurs, rubs or gallops. Lungs--clear bilaterally, no respiratory distress, no accessory muscle use. Abdomen--normal bowel sounds and soft. Nondistended. Extremities--no cyanosis or clubbing. 1+ bilateral pretibial pitting edema. Dermatologic--normal skin turgor, normal color. Neurologic--limited exam Rheumatologic--limited exam Psychiatric--obtunded Principal Diagnosis pulmonary embolism, deconditioning, poor po intake, rectal bleeding Discharge Exam Constitutional well developed and + thin Respiratory normal respiratory effort, lungs clear to auscultation upper airway sounds that cleared with cough. Cardiovascular RRR, no murmur, no edema Gastrointestinal (Abdomen) normal bowel sounds, soft, nontender, no hepatosplenomegaly Skin no rashes, warm and dry Psychiatric A+Ox3, euthymic affect Discharge Data Allergies Allergy/AdvReac Type Severity Reaction Status Date / Time No Known Allergies Allergy Verified 05/14/19 01:22 Consultations 05/14/19 02:26 ED Decision to Admit Stat 05/14/19 04:06 Consult Case Management - Discharge Planning Routine Consult Neurology Routine 05/18/19 09:01 Consult Hematology Routine 05/18/19 09:23 Consult Radiation Oncology Routine 05/18/19 09:24 Consult Gastroenterology Routine 05/19/19 08:08 Consult Anticoagulation Clinic Routine Procedures Performed Operation Date: 05/18/19 17:00 <No data on this case meets the specified criteria> Ordered Studies 05/14/19 01:12 CT cervical spine wo con Urgent CT head/brain wo con Urgent 05/17/19 12:08 CT abd pelvis oral and IV con Routine Hospital Course (1) Pulmonary embolus, right: Pt is a 69 y/o M [employer] with rectal adenocarcinoma status post radiation and currently on chemotherapy, chronic diarrhea, aortic valve replacement, chronic systolic heart failure with ejection fraction of 30-35%, nonischemic cardiomyopathy, recurrent syncope, ventricular tachycardia status post ICD placement on 01/25/2019, atrial fibrillation not on AC, DM2, BPH, hyperlipidemia, GERD, and left MCA territory CVA who presented to the emergency room after falling at home and being found by family less responsive than normal. Now back to baseline mental status, in process of treatment for PE found on CT abdomen/pelvic and for difficulty swallowing due to throat pain and deconditioning. Oral Mucositis / Deconditioning / Decreased PO intake: - Continue Marinol 5mg 3 times daily. - morphine 5mg PO q4h PRN pain. - has magic mouthwash now q4h scheduled. This should continue at SNF for throat pain to ensure better PO intake. - Pt needs outpatient follow up with his primary care doctor, the radiation oncologist, his oncologist, and Delmi with the heart failure clinic. Pulmonary embolism (right sided): - CT Abdomen and Pelvis 05/17/19 noted extensive right sided pulmonary embolus. - INR: 1.5->1.5->2.9->6.6->6.4 -> 4.7 -> 3.7. Follow INR daily and hold warfarin until in therapeutic range (2-3), then start warfarin again at 2mg TTS, 1mg all other days. - Dr. Devries with anticoagulation clinic will follow patient in the outpatient setting, and so he will need outpatient follow up appointment. - Pt without signs of active bleeding, Hgb stable. Denies SOB, CP, palpitations, dizziness. - Hgb stable this admission despite some rectal bleeding (HGB: 11.2->11.4->11.3->10.9->11.9->10.5 -> 10.9). Rectal bleeding: - Pt has a history of rectal bleeding and has had intermittent bloody diarrhea this admission. GI, Radiation oncology consulted and following. For outpatient follow up following discharge. - Pt denies rectal bleeding today. Hgb has been stable. - Continue to monitor for signs or symptoms of acute bleed. However intermittent small bloody discharge from rectum is his normal. Complicated UTI: - CT Abdomen/Pelvis showed cystitis and UA/UCx positive for E. coli sensitive to Keflex. Currently on Day 6 of antibiotic therapy. Will need to continue Keflex 500mg PO BID for a total of 10 days (until 05/28/19). - Pt is without abdominal pain, which he had a few days ago prior to beginning Abx for UTI. Has a history of prior UTI with pansensitive E. coli. UCx and grew pansensitive E. coli this admission. Chronic systolic heart failure - Pt has a history of CHF and follows with Victoria in heart failure clinic. - Pt has trace edema of bilateral LE today but not fluid overloaded on lung exam. - Pt will need Lasix 20mg PO PRN leg pitting edema and PRN weight gain >2 pounds. Unresponsive state/Agitation after syncopal event: - Change in mental status was likely due to concussion post fall and head trauma. - Syncope likely from underlying PE. - CTH negative for acute intracranial abnormalities; MRI deferred due to need to turn off ICD in order to perform test which family was unwilling to do given risk/benefit. - EEG showed encephalopathy however did not show seizure activity, however has a history of seizures post stroke and therefore is on Keppra prophylaxis per neurology recommendations. - Patient is back to baseline mental status at this time. Alert and oriented x3. Hypotension / Malnutrition: - Likely due to decreased PO intake, has been normotensive today and have a djusted diet to warm foods as patient unable to tolerate cold foods and drinks due to odynophagia. Encourage PO intake. Pt's family has chocolate ensure at home which the pt likes. Pt does not like Boost we tried here in hospital. Have repleted potassium many times this admission. - Will increase potassium to 20mg PO BID oral liquid. Odynophagia: - Since being on chemo; has been treated with nystatin recently. Receiving magic mouthwash swish and swallow here q4h scheduled odynophagia. Pt's PO intake better with liquid food. - Will continue Marinol 5mg TID and ankur mouthwash. These medications are not PRN they are scheduled. Atrial fibrillation: - Pt without chest pain or palpitations, continues to be in AFib. - Pt on home metoprolol. - Pt is on asa 81mg at home however prior to admission was not on chronic anticoagulation due to history of CVA and falls. - Now transitioning to warfarin however pt with supratherapeutic INR so holding until therapeutic. Rectal cancer - Currently on chemo: - Was tapering, however increased back to 20mg PO daily today (baseline dose at home) due to his increase in dysphagia and his lack of appetite. Pt was initially on this medication for appetite stimulation but I suspect that the steroid was alleviating some mucosal inflammation making it easier to eat. DM2 - Normally on Lantus 10u qHS at home. - Here in hospital was on SSI and has needed very few units due to poor PO intake. - Do not continue Lantus qHS unless PO intake becomes better. - Maintain SSI with below parameters: Goal BSG Range: Low 110_mg/dL, High 140_mg/dL Correction Factor: _25 mg/dL/unit INS:CHO Ratio: 1unit per 8 gms CHO consumed CODE STATUS: DNR/DNI, NO BLOOD PRODUCTS. PT is a [employer]ational Diet: Full Liquid Diet with nutrition shake supplementation DVT ppx: contraindication at this time due to INR. Will continue warfarin when appropriate. Dispo: SNF (2) Rectal bleed: (3) Malnutrition: (4) Syncope: (5) H/O aortic valve replacement: (6) UTI (urinary tract infection): (7) Chronic systolic (congestive) heart failure: (8) ICD (implantable cardioverter-defibrillator) in place: (9) Hypokalemia: (10) Rectal adenocarcinoma: (11) CKD (chronic kidney disease) stage 2, GFR 60-89 ml/min: (12) Aortic stenosis: (13) CVA (cerebral vascular accident): (14) HLD (hyperlipidemia): (15) HTN (hypertension): (16) DM type 2 (diabetes mellitus, type 2): (17) Seizure: (18) Afib: Total Time Total Time Spent Total Time Spent (In Minutes): see attending attestation. Discharge Plan Discharge Items Patient Disposition: Transfer Nursing Home Fac Reason For Visit: UNRESPONSIVE STATE Discharge Diagnosis: pulmonary embolism, rectal bleed, deconditioning, malnutrition Condition on Discharge: Fair Goals: increase strength, continue to monitor INR daily until therapeutic, increase PO intake Activity: Resume your previous activity Non-emergency contact: Primary Care Provider and Hospitalist Call non-emergency contact if: your symptoms worsen and your temperature is above 101 Follow-up/Referrals: Erika Negro [Primary Care Provider] - Victoria Gutierres PA-C [Physician Hotel [facility] Motel Manager] - 05/25/19 3:30 pm ([facility] Heart Failure Program Appointment Information Early follow up is essential to managing your heart failure. An appointment has been scheduled for you with the [facility] within 7 days of discharge. Anticipate this visit to be 30-60 minutes long. Please expect a guide tour phone call from one of our nurses approximately 48 hours from discharge. They will also be placing an order for lab work to be completed 1-2 days prior to your heart failure follow up appointment. Please be sure to have this done so we can go over the results when you come in. Office Location The cardiology office building is located in front of the hospital at [address] Bring the following with you to your follow-up doctor appointments: Please bring your daily weight log any discharge paperwork all of your medication bottles with you to this visit. ) Diet: Full liquid Diet Comment: full liquid diet. foods must NOT be cold, can only tolerate room temp. Addtl Attending Provider Instructions: Pt is a 69 y/o M Cong[employer] with rectal adenocarcinoma status post radiation and currently on chemotherapy, chronic diarrhea, aortic valve replacement, chronic systolic heart failure with ejection fraction of 30-35%, nonischemic cardiomyopathy, recurrent syncope, ventricular tachycardia status post ICD placement on 01/25/2019, atrial fibrillation not on AC, DM2, BPH, hyperlipidemia, GERD, and left MCA territory CVA who presented to the emergency room after falling at home and being found by family less responsive than normal. Now back to baseline mental status, in process of treatment for PE found on CT abdomen/pelvic and for difficulty swallowing due to throat pain and deconditioning. Oral Mucositis / Deconditioning / Decreased PO intake - Continue Marinol 5mg 3 times daily. - morphine 5mg PO q4h PRN pain. - has magic mouthwash now q4h scheduled. This should continue at SNF for throat pain to ensure better PO intake. - Pt needs outpatient follow up with his primary care doctor, the radiation oncologist, his oncologist, and Delmi with the heart failure clinic. Pulmonary embolism (right sided): - CT Abdomen and Pelvis 05/17/19 noted extensive right sided pulmonary embolus. - INR: 1.5->1.5->2.9->6.6->6.4 -> 4.7 -> 3.7. Follow INR daily and hold warfarin until in therapeutic range (2-3), then start warfarin again at 2mg TTS, 1mg all other days. - Dr. Devries with anticoagulation clinic will follow patient in the outpatient setting, and so he will need outpatient follow up appointment. - Pt without signs of active bleeding, Hgb stable. Denies SOB, CP, palpitations, dizziness. - Hgb stable this admission despite some rectal bleeding (HGB: 11.2->11.4->11.3->10.9->11.9->10.5 -> 10.9). Rectal bleeding: - Pt has a history of rectal bleeding and has had intermittent bloody diarrhea this admission. GI, Radiation oncology consulted and following. For outpatient follow up following discharge. - Pt denies rectal bleeding today. Hgb has been stable. - Continue to monitor for signs or symptoms of acute bleed. However intermittent small bloody discharge from rectum is his normal. UTI: - CT Abdomen/Pelvis showed cystitis and UA/UCx positive for E. coli sensitive to Keflex. Currently on Day 6 of antibiotic therapy. Will need to continue Keflex 500mg PO BID for a total of 10 days (until 05/28/19). - Pt is without abdominal pain, which he had a few days ago prior to beginning Abx for UTI. Has a history of prior UTI with pansensitive E. coli. UCx and grew pansensitive E. coli this admission. Chronic systolic heart failure - Pt has a history of CHF and follows with Victoria in heart failure clinic. - Pt has trace edema of bilateral LE today but not fluid overloaded on lung exam. - Pt will need Lasix 20mg PO PRN leg pitting edema and PRN weight gain >2 pounds. Unresponsive state/Agitation after syncopal event: - Change in mental status was likely due to concussion post fall and head trauma. - Syncope likely from underlying PE. - CTH negative for acute intracranial abnormalities; MRI deferred due to need to turn off ICD in order to perform test which family was unwilling to do given risk/benefit. - EEG showed encephalopathy however did not show seizure activity, however has a history of seizures post stroke and therefore is on Keppra prophylaxis per neurology recommendations. - Patient is back to baseline mental status at this time. Alert and oriented x3. Hypotension / Malnutrition: - Likely due to decreased PO intake, has been normotensive today and have adjusted diet to warm foods as patient unable to tolerate cold foods and drinks due to odynophagia. Encourage PO intake. Pt's family has chocolate ensure at home which the pt likes. Pt does not like Boost we tried here in hospital. Have repleted potassium many times this admission. - Will increase potassium to 20mg PO BID oral liquid. Odynophagia: - Since being on chemo; has been treated with nystatin recently. Receiving magic mouthwash swish and swallow here q4h scheduled odynophagia. Pt's PO intake better with liquid food. - Will continue Marinol 5mg TID and ankur mouthwash. These medications are not PRN they are scheduled. Atrial fibrillation: - Pt without chest pain or palpitations, continues to be in AFib. - Pt on home metoprolol. - Pt is on asa 81mg at home however prior to admission was not on chronic anticoagulation due to history of CVA and falls. - Now transitioning to warfarin however pt with supratherapeutic INR so holding until therapeutic. Rectal cancer - Currently on chemo: - Was tapering, however increased back to 20mg PO daily today (baseline dose at home) due to his increase in dysphagia and his lack of appetite. Pt was initially on this medication for appetite stimulation but I suspect that the steroid was alleviating some mucosal inflammation making it easier to eat. DM2 - Normally on Lantus 10u qHS at home. - Here in hospital was on SSI and has needed very few units due to poor PO intake. - Do not continue Lantus qHS unless PO intake becomes better. - Maintain SSI with below parameters: Goal BSG Range: Low 110_mg/dL, High 140_mg/dL Correction Factor: _25 mg/dL/unit INS:CHO Ratio: 1unit per 8 gms CHO consumed CODE STATUS: DNR/DNI, NO BLOOD PRODUCTS. PT is a [employer]regational Diet: Full Liquid Diet with nutrition shake supplementation DVT ppx: contraindication at this time due to INR. Will continue warfarin when appropriate. Dispo: SNF. Pending Studies at Discharge: No Stand-Alone Forms: [facility] Skilled Items Patient informed of condition?: Yes DNR: Yes Discharge Level of Care: Skilled Communicable Disease: No Discharge Prognosis: Stable Lines: None Urinary Catheter: No Medications and DC Order Prescriptions: New levetiracetam [Keppra] 500 mg Tablet 500 mg PO BID Qty: 60 RF: 1 dronabinol 2.5 mg Capsule 5 mg PO TID PRN (Reason: pain) Qty: 90 RF: 1 cephalexin 500 mg Capsule 500 mg PO BID Qty: 7 RF: 0 Novolog Flexpen U-100 Insulin 100 unit/mL (3 mL) Insulin Pen 1 units SC ACHS Qty: 15 RF: 0 potassium chloride 40 mEq/15 mL liquid 20 meq PO BID Qty: 473 RF: 0 furosemide 40 mg/5 mL (8 mg/mL) solution 20 mg PO DAILY PRN (Reason: edema, weight gain >2 lbs) Qty: 500 RF: 0 morphine concentrate 100 mg/5 mL (20 mg/mL) solution 5 mg PO Q4 PRN (Reason: pain) Qty: 30 RF: 0 Continued atorvastatin 20 mg tablet 20 mg PO HS RF: 0 folic acid 400 mcg Tablet 400 mcg PO QAM RF: 0 amoxicillin 500 mg tablet 2,000 mg PO ONCE PRN (Reason: BEFORE DENTAL PROCEDURE) RF: 0 docusate sodium [Stool Softener] 250 mg Capsule 500 mg PO BID RF: 0 metoprolol succinate 25 mg tablet extended release 24 hr 25 mg PO QAM Qty: 90 RF: 3 ascorbic acid (vitamin C) [Vitamin C] 500 mg Tablet 500 mg PO QAM RF: 0 tamsulosin [Flomax] 0.4 mg capsule 0.4 mg PO QPM RF: 0 omeprazole 20 mg Tablet,Delayed Release (Dr/Ec) 20 mg PO QAM RF: 0 omega 9-kij-xzy-fish oil [Fish Oil] 1,000 mg (120 mg-180 mg) Capsule 1 cap PO QAM RF: 0 Cholestyramine Light 4 gram Powder In Packet 4 g PO BID@1000,2200 Qty: 60 RF: 0 ferrous sulfate 325 mg (65 mg iron) tablet 325 mg PO TID RF: 0 diclofenac sodium [Voltaren] 1 % gel 1 gm topical QID PRN (Reason: Pain) RF: 0 multivitamin Tablet 1 tab PO DAILY RF: 0 prednisone 5 mg tablet 20 mg PO QAM RF: 0 lidocaine 5 % adhesive patch,medicated 1 patch TOP DAILY Qty: 30 RF: 0 Discontinued aspirin [Aspirin Low Dose] 81 mg Tablet,Delayed Release (Dr/Ec) 81 mg PO QAM RF: 0 spironolactone 25 mg Tablet 25 mg PO QAM RF: 0 Levemir U-100 Insulin 100 unit/mL Solution 10 unit SUBCUT HS RF: 0 morphine 15 mg tablet extended release 15 mg PO TID PRN (Reason: Pain) RF: 0 potassium chloride [Klor-Con M20] 20 mEq tablet,ER particles/crystals 20 meq PO DAILY RF: 0 oxycodone-acetaminophen 7.5-325 mg tablet 1 tab PO Q6H PRN (Reason: Pain) RF: 0 furosemide [Lasix] 40 mg tablet 20 mg PO QAM Qty: 0 RF: 0 Discharge Orders: Discharge Order (Routine); Ordered 05/24/19 Ordered By: Diana Cline Admission Data Admit Date/Time: 05/14/19 03:10 Attending Provider: Chu Moses Admit Provider: Geoff Schaffer Primary Care Provider: Erika Negro Other Providers: Chu Moses ; Geoff Schaffer ; Gaston Dailey ; Mike Jacobson V ; Yovany Nieto ; Derek Hawkins ; Chanell Devries ; Elmira Wadsworth Other Interventions: Discharge Summary Assessment (RN) Last Done: 05/24/19 14:02 DC Date/Time DO NOT enter until pt leaves facility: 05/24/19 13:45 Supervising Physician Co-Signing Physician Notes I personally examined the patient and verified all vieira points of history and exam, discussed case, and agree with decision making with Dr Cline. For SNF. no new problems noted Vitals noted, in general he is awake and pleasant walking well no distress. HEENT normocephalic atraumatic mucous members are moist. Breathing is unlabored no accessory muscle use good effort. Gait was reasonably stable with a walker and therapy assist. Rectal cancercontinue supportive care, pain control PErelated to rectal cancercontinue anticoagulation Coumadin coagulopathytitrating actively - continue to follow closely at SNF as above noted Syncopal eventslikely med related plus vagal given that they constantly happened in the bathroom. Meds have been reduced - continue to follow HFrEFtitrate meds as best as possible. Currently appearing to have no respiratory distress. SeizuresKeppra Otherwise as above Dispostable for SNF Resident Activity Tracking Resident Involvement: Resident Care Provided Care Provided: Adult Hospital Medicine
[2019-05-24] MEDS: MoRPHine SULFATE 2 MG/ML CARP IV PRN (13:03)
[2019-05-24 13:09] VITALS: PULSE 87
--- NOTE | 2019-05-24 17:44 | Billing Data ---
Coding Level of Care Code D/C Day Management <30 mins
== END 2019-05-24 13:45 | DRG 175 ==
LOC: ED 00:59 → SUATTDRO 03:10 → 2W 03:10 → 2N 05-24 02:50

== ENCOUNTER 2019-08-28 09:57 | Inpatient (IN) ==
[2019-08-28] MEDS ORDERED: NALOXONE HCL IV STA (10:07)
[2019-08-28] MEDS ORDERED: NALOXONE HCL 0.4 MG/1 ML VIAL/CARP ONE (10:11)
[2019-08-28] MEDS ORDERED: SODIUM CHLORIDE 0.9% 500 ML IV SCH (10:15)
--- NOTE | 2019-08-28 10:15 | Emergency Department Note ---
Entered by Wallace Grissom acting as a scribe for Russ Bradshaw DO History of Present Illness General Chief complaint: Unresponsive Stated complaint: unresponsive Source: family and EMS History of Present Illness Onset (ago): hour(s) (this morning) Pain Consistency: + other (decrease) Quality: + other (responsiveness) Associated symptoms: + denies other symptoms (congestions, trauma); no cough The patient is a 69 y/o male who presents to the ED w/ CC of decreased responsi veness beginning this morning. The patient presents from home and is on hospice. EMS states the patient had a BSG of 70 and was given pudding by family to raise it 94. They report their BSG was 112. EMS notes they were called because the family is normally very active and interactive. They state he was give 2 doses of Narcan in route. The family states the patient was not as responsive as normal this morning. They report he normally is bedridden and able to eat on his own and carry on a conversation. The family notes he is DNR and was last known well at 10PM last evening. They deny recent illness, cough, congestions, and trauma. The family states he did not receive more medication than 25mcg of Fentanyl. They report he is normally on 2L of oxygen at home. Home Medications Home Medications Medication Instructions Recorded Confirmed Type omeprazole 20 mg PO QAM 09/07/18 08/28/19 History tamsulosin [Flomax] 0.4 mg PO HS 09/07/18 08/28/19 History diclofenac sodium [Voltaren] 1 gm TOPICAL QID PRN 04/01/19 08/28/19 History prednisone 20 mg PO QAM 04/01/19 08/28/19 History docusate sodium [Stool Softener] 500 mg PO BID 05/14/19 08/28/19 History apixaban [Eliquis] 5 mg PO QAM 08/28/19 08/28/19 History fentanyl 1 patch TRANSDERMAL Q72H 08/28/19 08/28/19 History levetiracetam [Keppra] 500 mg PO QAM 08/28/19 08/28/19 History magnesium oxide 400 mg PO QAM 08/28/19 08/28/19 History morphine concentrate 5 mg PO Q4 PRN 08/28/19 08/28/19 History Allergies Allergy/AdvReac Type Severity Reaction Status Date / Time No Known Allergies Allergy Verified 08/28/19 10:26 Past Med/Surg History Medical History AAA (abdominal aortic aneurysm) NEW FINDING Anemia Aortic stenosis Atrial fibrillation BPH (benign prostatic hyperplasia) Cancer COLON CANCER (NEW DX) RADIATION JUST COMPLETED Chronic systolic (congestive) heart failure Colon cancer Congestive heart failure CVA (cerebral vascular accident) 08/11/18 DM type 2 (diabetes mellitus, type 2) GERD (gastroesophageal reflux disease) HLD (hyperlipidemia) HTN (hypertension) Kidney disease (Chronic) Nonischemic cardiomyopathy Osteoarthritis Seizure "SMALL SEIZURE AT TIME OF CVA 07/2018" Sleep apnea Sleep apnea (Chronic) Surgical History H/O aortic valve replacement (Chronic) 2010 AT [facility] H/O knee surgery RT/LEFT History of cardiac cath 2010 History of colonoscopy History of tooth extraction Port-A-Cath in place (Chronic) Family History Brother Family history of diabetes mellitus Mother Colon cancer Father Coronary heart disease Hypertension Sister Hypertension Grandmother Diabetes Social History Preferred Language: [place] Communication Ability: Unable 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 and A total of 10 systems reviewed and were otherwise negative Physical Exam Vital Signs Vital Signs - 24 hr 08/28/19 09:57 08/28/19 10:00 08/28/19 10:01 Temperature 37.3 C Temperature Source Rectal Pulse Rate 124 H 108 H Pulse Rate from SpO2 Sensor 108 H Respiratory Rate 12 28 H Respiratory Depth Shallow Respiratory Pattern Regular Blood Pressure 148/94 H 128/109 H Blood Pressure Mean 112 114 Pulse Oximetry 75 L 98 72 L Oxygen Delivery Method Nasal Cannula Non-rebreather Nasal Cannula Oxygen Flow Rate 6 15 6 Fraction of Inspired Oxygen Sepsis Recent Fever Within 48 Hours No Sepsis New/Unexplained Change in Mental Status No Sepsis Action Taken by Nursing No Action Required End-Tidal CO2 08/28/19 10:02 08/28/19 10:05 08/28/19 10:11 Temperature Temperature Source Pulse Rate 114 H 109 H 105 H Pulse Rate from SpO2 Sensor 108 H 108 H 96 H Respiratory Rate 25 H 24 29 H Respiratory Depth Respiratory Pattern Blood Pressure 148/94 H 122/93 116/81 Blood Pressure Mean 105 97 82 Pulse Oximetry 71 L 90 100 Oxygen Delivery Method Nasal Cannula Non-rebreather Non-rebreather Oxygen Flow Rate 6 15 15 Fraction of Inspired Oxygen Sepsis Recent Fever Within 48 Hours Sepsis New/Unexplained Change in Mental Status Sepsis Action Taken by Nursing End-Tidal CO2 08/28/19 10:35 08/28/19 10:41 08/28/19 10:46 Temperature Temperature Source Pulse Rate 104 H 111 H 98 H Pulse Rate from SpO2 Sensor 97 H 108 H 95 H Respiratory Rate 19 27 H 21 Respiratory Depth Respiratory Pattern Blood Pressure 128/93 112/78 108/72 Blood Pressure Mean 100 88 90 Pulse Oximetry 97 100 100 Oxygen Delivery Method Non-rebreather Non-rebreather Non-rebreather Oxygen Flow Rate 15 15 15 Fraction of Inspired Oxygen Sepsis Recent Fever Within 48 Hours Sepsis New/Unexplained Change in Mental Status Sepsis Action Taken by Nursing End-Tidal CO2 08/28/19 10:50 08/28/19 10:55 08/28/19 11:00 Temperature Temperature Source Pulse Rate 106 H 113 H 133 H Pulse Rate from SpO2 Sensor 112 H 108 H 124 H Respiratory Rate 29 H 24 21 Respiratory Depth Respiratory Pattern Blood Pressure 126/91 136/104 H Blood Pressure Mean 106 113 Pulse Oximetry 99 98 99 Oxygen Delivery Method Non-rebreather Non-rebreather Non-rebreather Oxygen Flow Rate 15 15 15 Fraction of Inspired Oxygen Sepsis Recent Fever Within 48 Hours Sepsis New/Unexplained Change in Mental Status Sepsis Action Taken by Nursing End-Tidal CO2 08/28/19 11:05 08/28/19 11:11 08/28/19 11:15 Temperature Temperature Source Pulse Rate 139 H 118 H 160 H Pulse Rate from SpO2 Sensor 132 H 123 H 104 H Respiratory Rate 34 H 19 17 Respiratory Depth Respiratory Pattern Blood Pressure 135/95 138/112 H 147/91 H Blood Pressure Mean 113 118 104 Pulse Oximetry 97 98 97 Oxygen Delivery Method Non-rebreather Non-rebreather Non-rebreather Oxygen Flow Rate 15 15 15 Fraction of Inspired Oxygen Sepsis Recent Fever Within 48 Hours Sepsis New/Unexplained Change in Mental Status Sepsis Action Taken by Nursing End-Tidal CO2 08/28/19 11:20 08/28/19 11:21 08/28/19 11:25 Temperature Temperature Source Pulse Rate 132 H 121 H 119 H Pulse Rate from SpO2 Sensor 113 H 123 H 114 H Respiratory Rate 29 H 31 H 33 H Respiratory Depth Respiratory Pattern Blood Pressure 132/82 133/96 Blood Pressure Mean 96 106 Pulse Oximetry 95 96 94 Oxygen Delivery Method Non-rebreather Non-rebreather Non-rebreather Oxygen Flow Rate 15 15 15 Fraction of Inspired Oxygen Sepsis Recent Fever Within 48 Hours Sepsis New/Unexplained Change in Mental Status Sepsis Action Taken by Nursing End-Tidal CO2 08/28/19 11:31 08/28/19 11:41 08/28/19 11:46 Temperature Temperature Source Pulse Rate 103 H 126 H Pulse Rate from SpO2 Sensor 109 H 114 H 126 H Respiratory Rate 56 H 19 19 Respiratory Depth Respiratory Pattern Blood Pressure 128/84 108/71 122/89 Blood Pressure Mean 92 89 92 Pulse Oximetry 85 L 91 91 Oxygen Delivery Method Non-rebreather Non-rebreather Non-rebreather Oxygen Flow Rate 15 15 15 Fraction of Inspired Oxygen Sepsis Recent Fever Within 48 Hours Sepsis New/Unexplained Change in Mental Status Sepsis Action Taken by Nursing End-Tidal CO2 08/28/19 11:51 08/28/19 11:55 08/28/19 12:01 Temperature Temperature Source Pulse Rate 116 H 109 H 121 H Pulse Rate from SpO2 Sensor 113 H 118 H 125 H Respiratory Rate 23 24 26 H Respiratory Depth Respiratory Pattern Blood Pressure 100/56 L 118/82 142/63 H Blood Pressure Mean 64 88 86 Pulse Oximetry 92 93 86 L Oxygen Delivery Method Non-rebreather Non-rebreather Non-rebreather Oxygen Flow Rate 15 15 15 Fraction of Inspired Oxygen Sepsis Recent Fever Within 48 Hours Sepsis New/Unexplained Change in Mental Status Sepsis Action Taken by Nursing End-Tidal CO2 08/28/19 12:06 08/28/19 12:10 08/28/19 12:16 Temperature Temperature Source Pulse Rate 123 H 128 H 119 H Pulse Rate from SpO2 Sensor 114 H 125 H 114 H Respiratory Rate 33 H 30 H 29 H Respiratory Depth Respiratory Pattern Blood Pressure 104/58 L 119/64 111/70 Blood Pressure Mean 75 85 85 Pulse Oximetry 89 L 90 91 Oxygen Delivery Method Non-rebreather Non-rebreather Non-rebreather Oxygen Flow Rate 15 15 15 Fraction of Inspired Oxygen Sepsis Recent Fever Within 48 Hours Sepsis New/Unexplained Change in Mental Status Sepsis Action Taken by Nursing End-Tidal CO2 08/28/19 12:21 08/28/19 12:26 08/28/19 12:30 Temperature Temperature Source Pulse Rate 110 H 106 H 107 H Pulse Rate from SpO2 Sensor 118 H 103 H 100 H Respiratory Rate 36 H 20 Respiratory Depth Respiratory Pattern Blood Pressure 118/58 L 111/64 103/74 Blood Pressure Mean 64 83 81 Pulse Oximetry 89 L 86 L 95 Oxygen Delivery Method Non-rebreather Non-rebreather Mechanical Vent Oxygen Flow Rate 15 15 Fraction of Inspired Oxygen Sepsis Recent Fever Within 48 Hours Sepsis New/Unexplained Change in Mental Status Sepsis Action Taken by Nursing End-Tidal CO2 08/28/19 12:43 08/28/19 12:46 08/28/19 12:50 Temperature Temperature Source Pulse Rate 103 H 112 H 105 H Pulse Rate from SpO2 Sensor 105 H 98 H Respiratory Rate 20 Respiratory Depth Respiratory Pattern Blood Pressure 123/76 110/82 Blood Pressure Mean 100 84 Pulse Oximetry 100 98 94 Oxygen Delivery Method Mechanical Vent Mechanical Vent Oxygen Flow Rate Fraction of Inspired Oxygen 100 Sepsis Recent Fever Within 48 Hours Sepsis New/Unexplained Change in Mental Status Sepsis Action Taken by Nursing End-Tidal CO2 50 51 50 08/28/19 12:55 08/28/19 13:05 08/28/19 13:10 Temperature Temperature Source Pulse Rate 102 H 91 H 88 Pulse Rate from SpO2 Sensor 94 H 83 87 Respiratory Rate Respiratory Depth Respiratory Pattern Blood Pressure 107/79 109/75 109/78 Blood Pressure Mean 89 77 88 Pulse Oximetry 97 94 95 Oxygen Delivery Method Mechanical Vent Oxygen Flow Rate Fraction of Inspired Oxygen Sepsis Recent Fever Within 48 Hours Sepsis New/Unexplained Change in Mental Status Sepsis Action Taken by Nursing End-Tidal CO2 44 43 42 08/28/19 13:15 08/28/19 13:20 08/28/19 13:25 Temperature Temperature Source Pulse Rate 87 83 88 Pulse Rate from SpO2 Sensor 85 79 85 Respiratory Rate Respiratory Depth Respiratory Pattern Blood Pressure 104/71 102/72 105/74 Blood Pressure Mean 73 82 82 Pulse Oximetry 95 94 95 Oxygen Delivery Method Oxygen Flow Rate Fraction of Inspired Oxygen Sepsis Recent Fever Within 48 Hours Sepsis New/Unexplained Change in Mental Status Sepsis Action Taken by Nursing End-Tidal CO2 43 43 44 08/28/19 13:32 Temperature Temperature Source Pulse Rate 78 Pulse Rate from SpO2 Sensor Respiratory Rate 20 Respiratory Depth Respiratory Pattern Blood Pressure 100/73 Blood Pressure Mean Pulse Oximetry 96 Oxygen Delivery Method Mechanical Vent Oxygen Flow Rate Fraction of Inspired Oxygen Sepsis Recent Fever Within 48 Hours Sepsis New/Unexplained Change in Mental Status Sepsis Action Taken by Nursing End-Tidal CO2 CONSTITUTIONAL/VITAL SIGNS: Reviewed / noted above. GENERAL: Non-toxic in appearance. INTEGUMENTARY: Warm, dry, and [place]. HEAD: Normocephalic. EYES: Rightward gaze with rightward nystagmus without scleral icterus or trauma. ENT/OROPHARYNX: clear and moist. LYMPHADENOPATHY/NECK: Is supple without lymphadenopathy or meningismus. RESPIRATORY: Lungs clear and equal. CARDIOVASCULAR: Regular rate and rhythm. GI/ABDOMEN: Soft and nontender. No organomegaly or pulsatile mass. No rebound or guarding. Normal bowel sounds. EXTREMITIES: Warm and well perfused. Negative Babinski. Withdraws to painful stimuli. BACK: No CVA tenderness. NEUROLOGICAL: Intact without focal deficits, with the exception of a rightward gaze with rightward nystagmus. Withdraws to painful stimuli. PSYCHIATRIC: normal affect. MUSCULOSKELETAL: Normally developed with good muscle tone. Procedures Free Text Procedures Endotracheal intubation: Done by me. Reason: Acute respiratory failure RSI was performed using 20 mg of IV etomidate. The patient was intubated successfully and without difficulty with a MAC 4 blade. The endotracheal tube was visualized passing through the cords. The patient did not have any hypoxia. There was no hypotension. There was no complication. End-tidal CO2 detection was present. Bilateral breath sounds are present with good tube humidification. No epigastric sounds. It was taped at 24 cm at the lip line. Size 8.0. After intubation, the patient did start biting on the tube and he was given 2 mg of IV Ativan as well as 10 mg IV vecuronium. ABG Interpretation ABG Interpretation 1: ABG Results: pH is 7.0, PCO2 is 100 and PaO2 is 99. Interpretation: respiratory acidosis ABG Interpretation 2: Interpretation: respiratory acidosis Additional Comments: The patient's pH is 7.32, PCO2 is 61, PaO2 is 75. The patient has an improving respiratory acidosis based on the initial one performed. Course Course 0956: Past medical records reviewed. The patient was evaluated in room B01. A complete history and physical exam was performed. 1133: The patient has had two tonic colonic seizures each lasting 30 seconds each within the past 20 mins. 1139: I reviewed the patient's case with Dr. Miller, [facility] Hospitalist. She will evaluate the patient for further management. 1147: I updated the patient family of the hospitalist evaluation. They would like to discuss intubation with the hospitalist. 1221: After evaluation by the hospitalist, the family has decided intubation is what they would like. I performed an endotracheal intubation. Please refer to the procedure note for more information. Administered Medications Ioversol (Optiray 320 125ml) 120 ml IV ONCE PRN PRN Reason: Interaction Checking Stop: 09/01/19 10:24 Last Admin: 08/28/19 10:26 Dose: 120 ml Documented by: [id number] Discontinued Medications Sodium Chloride (Nss) 500 mls @ 999 mls/hr IV .Q31M JENNIFFER Stop: 08/28/19 10:45 Last Infusion: 08/28/19 11:32 Dose: 0 mls/hr Documented by: [id number] Admin: 08/28/19 10:20 Dose: 999 mls/hr Documented by: [id number] Naloxone HCl 0.8 mg/ Syringe 3.8 mls @ 1 mls/min IV NOW STA Stop: 08/28/19 10:10 Last Admin: 08/28/19 10:40 Dose: Not Given Documented by: [id number] Levetiracetam 1,000 mg/ Sodium (Chloride) 110 mls @ 440 mls/hr IV NOW STA Stop: 08/28/19 11:41 Last Infusion: 08/28/19 12:07 Dose: 0 mls/hr Documented by: [id number] Admin: 08/28/19 11:46 Dose: 440 mls/hr Documented by: [id number] Cefepime HCl (Maxipime) 2,000 mg in 20 mls @ 5 mls/min IV NOW STA; Protocol Stop: 08/28/19 11:38 Last Admin: 08/28/19 11:56 Dose: 5 mls/min Documented by: [id number] Lorazepam (Ativan) 1 mg in 2 mls @ 2 mls/min IV NOW STA Stop: 08/28/19 12:33 Last Admin: 08/28/19 12:38 Dose: 2 mls/min Documented by: [id number] Lorazepam (Ativan) 1 mg in 2 mls @ 2 mls/min IV NOW STA Stop: 08/28/19 12:37 Last Admin: 08/28/19 12:38 Dose: 2 mls/min Documented by: [id number] Naloxone HCl (Narcan) Confirm Administered Dose 0.8 mg .ROUTE .STK-MED ONE Stop: 08/28/19 10:12 Last Admin: 08/28/19 10:12 Dose: 0.8 mg Documented by: [id number] Sodium Bicarbonate (Sodium Bicarbonate 8.4%) 100 meq IV NOW STA Stop: 08/28/19 12:35 Last Admin: 08/28/19 12:52 Dose: 100 meq Documented by: [id number] Vecuronium [place] (Norcuron) 10 mg IV NOW STA Stop: 08/28/19 12:37 Last Admin: 08/28/19 12:39 Dose: 10 mg Documented by: [id number] Cosigned by: [id number] Critical Care Time Critical Care Time: Yes Total Critical Care Time: 94 I have personally spent 94 minutes of critical care time in the direct management of this patient. This includes bedside care, interpretation of diagnostic studies, and testing, discussion with consultants, patient, and family members, and other required patient management activities. This 94 minutes is in excess of all separately billable procedures. Medical Decision Making Differential Diagnosis Differential includes toxicologic events, acute cardiac dysrhythmia, microinfarction, CVA, TIA, dehydration, anemia, electrolyte disturbance, seizure, trauma, intracranial bleeding, acute vascular catastrophe, thoracic aortic dissection, PE, abdominal aortic aneurysm rupture, infection, hypoglycemia, overdose, trauma. Medical Records Attestation: I reviewed the patient's medical records. Home Medications Current Medication List: was personally reviewed by me Laboratory Data Attestation: I reviewed the patient's lab results. Result diagrams: 08/28/19 10:45 08/28/19 10:45 Lab Results 08/28/19 08/28/19 08/28/19 Range/Units 10:45 10:45 10:45 WBC 12.39 H (4.8-10.8) K/uL RBC 4.29 L (4.7-6.1) M/uL Hgb 12.0 L (14.0-18.0) g/dL Hct 39.6 L (42-52) % MCV 92.3 (80-100) fL MCH 28.0 (25-34) pg MCHC 30.3 L (32-36) g/dL RDW Std Deviation 53.7 H (36.4-46.3) fL RDW Coeff of Amandeep 16.1 H (11.5-14.5) % Plt Count 156 (130-400) K/uL MPV 10.7 H (7.4-10.4) fL Immature Gran % (Auto) 0.2 % Neut % (Auto) 75.9 % Lymph % (Auto) 16.1 % [place] % (Auto) 6.2 % Eos % (Auto) 1.5 % Baso % (Auto) 0.1 % Immature Gran # (Auto) 0.02 (0.00-0.02) K/uL Neut # (Auto) 9.41 H (1.4-6.5) K/uL Lymph # (Auto) 1.99 (1.2-3.4) K/uL [place] # (Auto) 0.77 H (0.11-0.59) K/uL Eos # (Auto) 0.19 (0-0.5) K/uL Baso # (Auto) 0.01 (0-0.2) K/uL PT 11.4 (9.0-12.0) Seconds INR 1.1 (0.9-1.1) ABG pH (7.35-7.45) ABG pCO2 (35-46) mmHg ABG pO2 (80-95) mmHg ABG HCO3 (19-24) mmol/L ABG O2 Saturation (90-95) % ABG Base Excess (-9-1.8) mEq/L Justo Test (Pos) Barometric Pressure mm/Hg Oxygen Given Sodium 141 (136-145) mmol/L Potassium 4.0 (3.5-5.1) mmol/L Chloride 108 H (98-107) mmol/L Carbon Dioxide 28 (21-32) mmol/L Anion Gap 4.0 (3-11) BUN 14 (7-18) mg/dl Creatinine 0.79 (0.6-1.4) mg/dl Est Cr Clr Drug Dosing 101.3 ml/min Est GFR ( Amer) 105.4 Est GFR (Non-Af Amer) 91.0 BUN/Creatinine Ratio 18.1 (10-20) Glucose 141 H (70-99) mg/dl Lactate (0.4-2.0) mmol/L Calcium 8.6 (8.5-10.1) mg/dl Magnesium 1.7 L (1.8-2.4) mg/dl Total Bilirubin 0.2 (0.2-1) mg/dl AST 49 H (15-37) U/L ALT 26 (12-78) U/L Alkaline Phosphatase 133 H (45-117) U/L Total Creatine Kinase 28 L (39-308) U/L Troponin I 0.039 (0-0.045) ng/ml Total Protein 5.6 L (6.4-8.2) gm/dl Albumin 2.3 L (3.4-5.0) gm/dl Globulin 3.3 (2.5-4.0) gm/dl Albumin/Globulin Ratio 0.7 L (0.9-2) TSH 2.140 (0.300-4.500) uIu/ml 08/28/19 08/28/19 Range/Units 11:55 11:58 WBC (4.8-10.8) K/uL RBC (4.7-6.1) M/uL Hgb (14.0-18.0) g/dL Hct (42-52) % MCV (80-100) fL MCH (25-34) pg MCHC (32-36) g/dL RDW Std Deviation (36.4-46.3) fL RDW Coeff of Amandeep (11.5-14.5) % Plt Count (130-400) K/uL MPV (7.4-10.4) fL Immature Gran % (Auto) % Neut % (Auto) % Lymph % (Auto) % [place] % (Auto) % Eos % (Auto) % Baso % (Auto) % Immature Gran # (Auto) (0.00-0.02) K/uL Neut # (Auto) (1.4-6.5) K/uL Lymph # (Auto) (1.2-3.4) K/uL [place] # (Auto) (0.11-0.59) K/uL Eos # (Auto) (0-0.5) K/uL Baso # (Auto) (0-0.2) K/uL PT (9.0-12.0) Seconds INR (0.9-1.1) ABG pH 7.02 L* (7.35-7.45) ABG pCO2 100 H (35-46) mmHg ABG pO2 99 H (80-95) mmHg ABG HCO3 25 H (19-24) mmol/L ABG O2 Saturation 94.7 (90-95) % ABG Base Excess -8.0 (-9-1.8) mEq/L Justo Test Pos (Pos) Barometric Pressure 735.6 mm/Hg Oxygen Given 15 L Sodium (136-145) mmol/L Potassium (3.5-5.1) mmol/L Chloride (98-107) mmol/L Carbon Dioxide (21-32) mmol/L Anion Gap (3-11) BUN (7-18) mg/dl Creatinine (0.6-1.4) mg/dl Est Cr Clr Drug Dosing ml/min Est GFR ( Amer) Est GFR (Non-Af Amer) BUN/Creatinine Ratio (10-20) Glucose (70-99) mg/dl Lactate 5.8 H* (0.4-2.0) mmol/L Calcium (8.5-10.1) mg/dl Magnesium (1.8-2.4) mg/dl Total Bilirubin (0.2-1) mg/dl AST (15-37) U/L ALT (12-78) U/L Alkaline Phosphatase (45-117) U/L Total Creatine Kinase (39-308) U/L Troponin I (0-0.045) ng/ml Total Protein (6.4-8.2) gm/dl Albumin (3.4-5.0) gm/dl Globulin (2.5-4.0) gm/dl Albumin/Globulin Ratio (0.9-2) TSH (0.300-4.500) uIu/ml Imaging Data Radiologist's Impression: Radiology results as stated below per my review and the radiologist's interpretation: XR chest 1V portable HISTORY: 69 years-old Male weakness acute weakness COMPARISON: CTA of the neck of same day, chest radiograph 05/14/2019 TECHNIQUE: Portable AP view of the chest FINDINGS: Cardiac silhouette is enlarged. Prior median sternotomy with aortic valvular prosthesis. Skinfold projects of the right lung apex. Calcified plaque of the thoracic aorta. Left subclavian [place]-o-Cnfs catheter with right subclavian pacer/AICD redemonstrated. Pulmonary vascular congestion with interstitial coarsening. Ill-defined airspace opacity of the lateral left midlung. Mild biba silar consolidation with probable trace pleural effusions. 7 mm nodular opacity of the right midlung is unchanged. Degenerative changes of the shoulders and spine. IMPRESSION: 1. Cardiomegaly with pulmonary edema. 2. Ill-defined opacity of the lateral left midlung may be secondary to summation density or airspace disease. 3. Bibasilar consolidation with trace pleural effusions. ACT 112: Negative or not required by law. The above report was generated using voice recognition software. It may contain grammatical, syntax or spelling errors. Electronically signed by: Edgar Davis M.D. 08/28/2019 11:[address] head/brain wo con CLINICAL HISTORY: 69 years-old Male with ams. Acutely altered mental status TECHNIQUE: Multiple axial CT images of the head were obtained without contrast. A dose lowering technique was utilized adhering to the principles of ALARA. COMPARISON: CTA head neck of same day, head CT 05/14/2019. FINDINGS: No acute intracranial hemorrhage, midline shift, intracranial mass, hydrocephalus, territorial ischemia or abnormal extra-axial collection. Mild age-related involutional changes. Cerebral vascular calcifications are noted. Unchanged focus of encephalomalacia in the left parietal lobe near the vertex. The calvarium is intact. Mastoid air cells are clear. Mild mucosal thickening of the right maxillary sinus. Soft tissues and orbits are unremarkable. IMPRESSION: No acute intracranial abnormality. ACT 112: Negative or not required by law. The above report was generated using voice recognition software. It may contain grammatical, syntax or spelling errors. Electronically signed by: Edgar Davis M.D. 08/28/2019 10:[address] angio neck with con, CT angio head w con CLINICAL HISTORY: 69 years-old Male with ams. Acutely altered mental status COMPARISON STUDY: Head CT of same day. TECHNIQUE: Following the IV administration of 120 mL of Optiray 320, CT angiogram of the head and neck was performed from the aortic arch to the skull apex. Images are reviewed in the axial, sagittal, and coronal planes. 3-D MIPS images are created and assessed. IV contrast was administered without complication. All measurements were calculated based on NASCET criteria. A dose lowering technique was utilized adhering to the principles of ALARA. CT DOSE: 1250.51 mGy.cm FINDINGS: Fusiform dilation of the ascending thoracic aorta, 4.8 x 4.6 cm. The imaged pulmonary artery is unremarkable. Prior median sternotomy with history of cardiac valvular prosthesis. Partially imaged right subclavian pacer lead. Left subclavian [id number] catheter is partially imaged, distal tip not imaged. Mo derate calcified plaque of the thoracic aortic arch with patency of the imaged subclavian arteries. Study is mildly motion degraded. Patent bilateral common carotid arteries. There is moderate mostly calcified plaque of the right carotid bulb and proximal right ICA which results in less than 50% luminal narrowing. Severe calcified plaque of the left carotid bulb and proximal left ICA also results in less than 50% luminal narrowing. There is tortuosity involving the bilateral proximal to mid cervical segments of the internal carotid arteries. Calcified plaque of the bilateral cavernous segments. No aneurysm, dissection, high-grade stenosis or proximal branch occlusion. The bilateral middle cerebral arteries and anterior cerebral arteries appear patent and unremarkable. Codominant vertebral arteries. Calcified plaque of the before segment right vertebral artery is noted without significant stenosis. Calcified plaque at the origin of the left vertebral artery causes mild luminal narrowing. Calcified plaque of the V4 segment left vertebral artery results in approximately 50% luminal narrowing, image 3 5 series 6. Calcified plaque of the basilar artery results in approximately 60% luminal narrowing, image 51 series 5. There is moderate luminal narrowing involving the proximal portions of the bilateral posterior cerebral arteries cerebral venous sinuses are patent. No abnormal intracranial enhancement. No pneumothorax. Soft tissues are unremarkable. Degenerative changes are noted throughout the spine. IMPRESSION: 1. Mixed plaque of the bilateral carotid bulbs, left greater than right results in less than 50% luminal narrowing bilaterally. 2. Calcified plaque of the basilar artery causes 60% luminal narrowing. 3. No aneurysm, dissection or proximal branch occlusion. 4. Moderate luminal narrowing at the origin of the bilateral posterior cerebral arteries. 5. Fusiform dilation of the ascending thoracic aorta, 4.8 x 4.6 cm. ACT 112: Negative or not required by law. The above report was generated using voice recognition software. It may contain grammatical, syntax or spelling errors. Electronically signed by: Edgar Davis M.D. 08/28/2019 10:50 AM ECG Data Attestation: I personally reviewed and interpreted this ECG as follows: Indication: + altered mental status Rate (beats per minute): 117 Rhythm: + atrial fibrillation ECG Intervals/blocks: + Normal QT-c ECG ST segments: no ST elevation ECG Findings: + PVCs Blood Pressure Blood Pressure Findings: Normal blood pressure Blood Pressure Disposition: did not require urgent referral MDM Narrative This is a 69-year-old male who presents to the ED with a chief complaint of altered mental status. He was last known well about 2200 hrs. when he went to bed. He is normally bedbound but is able to carry on a conversation as well as feed himself in bed. The patient was found this morning unresponsive. Family checked a blood sugar that was 70 at home. They gave him some pudding which she apparently tolerated. EMS found to have a blood sugar of 112. He did have a recent increase in his fentanyl patch from 50-75. EMS did provide some IV Narcan of a total point 8 mg. No significant change was noted. The patient does have a rightward gaze with some twitching of the eyes or nystagmus type of movement towards the right. He does withdrawal to painful stimulus of the upper and lower extremities. He does not have a positive Babinski. The patient otherwise was found to be hypoxic on his initial vital signs. EMS found the patient to have an oxygen saturation of around 70%. He was placed on oxygen. Here his oxygen saturations were in the 80s on nasal cannula oxygen he was provided a oxygen mask. This improved his oxygen saturations. He does seem to have weakness with regards to his breathing and poor inspiratory effort. He is in no distress. The patient was initially reported as DNR but the son showed me a power of district attorney slip that was not a DNR.. He is also reportedly on hospice for terminal rectal cancer. The family wants everything to be done at this point as they did not feel that the patient has a terminal disorder rather than an acute worsening of his baseline. They would like airway protection and ventilation as this appears to be a large part of his problem in addition to his recurrent seizures. The patient's CT scan of the brain did not show any acute abnormalities. CT angiogram reveals some stenosis of various arteries but nothing acute. The patient's white blood cell count is 12. Chest x-ray reveals some pulmonary edema as well as possibly basilar consolidation. Metabolic panel was unremarkable. Troponin was negative. Lactic acid level was elevated. An ABG reveals a pH of 7 with a PCO2 of 100 and oxygen level of 99. This is consistent with an acute respiratory acidosis. I did speak with Dr. Satya galicia bout the patient. Because of the patient's hospice status, the endotracheal intubation was held off for a period of time until she was able to talk with the family as well as with the patient's oncologist to determine the course of action. After discussion, the plan was to provide airway protection and ventilation for the patient until the details are figured out. Endotracheal intubation was performed without difficulty using a glide scope. Chest x-ray shows good placement above the bassam. Initial ABG revealed a pH of 7.0 with a PCO2 of 100, after intubation the ABG showed a pH of 7.32 with a PCO2 of 61. The patient will be admitted to the hospital for further evaluation and care. The patient seizures did stop after the IV Keppra 1 g was administered. In addition to this the patient did receive IV cefepime and a dose of IV Ativan after intubation. He was also given some IV vecuronium as he was biting the tube shortly after intubation. He did receive 2 amps of IV bicarb because of his acidosis after intubation. Impression & Plan Acute respiratory failure, Respiratory acidosis, Pneumonia, Status epilepticus, Lactic acidosis Discharge Plan Visit Data Chief Complaint: Unresponsive Stated Complaint: unresponsive ED Provider: Russ Bradshaw Discharge Problem: Acute respiratory failure, Respiratory acidosis, Pneumonia, Status epilepticus, Lactic acidosis Patient Disposition: Being Evaluated by Hospitalist Discharge Instructions Interventions: ED Discharge Assessment Last Done: 08/28/19 13:32 Forms Stand Alone Forms: My [facility] Prescriptions Prescriptions: No Action docusate sodium [Stool Softener] 250 mg Capsule 500 mg PO BID RF: 0 tamsulosin [Flomax] 0.4 mg capsule 0.4 mg PO HS RF: 0 omeprazole 20 mg Tablet,Delayed Release (Dr/Ec) 20 mg PO QAM RF: 0 diclofenac sodium [Voltaren] 1 % gel 1 gm topical QID PRN (Reason: Pain) RF: 0 prednisone 5 mg tablet 20 mg PO QAM RF: 0 fentanyl 75 mcg/hr Patch 72 Hour 1 patch TRANSDERMAL Q72H RF: 0 Eliquis 5 mg tablet 5 mg PO QAM RF: 0 morphine concentrate 100 mg/5 mL (20 mg/mL) solution 5 mg PO Q4 PRN (Reason: pain) RF: 0 levetiracetam [Keppra] 500 mg tablet 500 mg PO QAM RF: 0 magnesium oxide 400 mg magnesium tablet 400 mg PO QAM RF: 0 Referrals Referrals: Erika Negro [Primary Care Provider] - Discharge Problem: Acute respiratory failure Qualifiers: Respiratory failure complication: hypoxia and hypercapnia Qualified Code(s): J96.01 - Acute respiratory failure with hypoxia Pneumonia Qualifiers: Pneumonia type: due to unspecified organism Laterality: unspecified laterality Lung location: unspecified part of lung Qualified Code(s): J18.9 - Pneumonia, unspecified organism The scribe's documentation has been prepared under my direction and personally r eviewed by me in its entirety. I confirm that the note above accurately reflects all work, treatment, procedures, and medical decision making performed by me.
[2019-08-28] MEDS ORDERED: OPTIRAY 320 125ml IV PRN (10:25)
--- NOTE | 2019-08-28 10:41 | CT Scan Report ---
CT head/brain wo con CLINICAL HISTORY: 69 years-old Male with ams. Acutely altered mental status TECHNIQUE: Multiple axial CT images of the head were obtained without contrast. A dose lowering tech nique was utilized adhering to the principles of ALARA. COMPARISON: CTA head neck of same day, head CT 05/14/2019. FINDINGS: No acute intracranial hemorrhage, midline shift, intracranial mass, hydrocephalus, territorial ischem ia or abnormal extra-axial collection. Mild age-related involutional changes. Cerebral vascular calci fications are noted. Unchanged focus of encephalomalacia in the left parietal lobe near the vertex. The calvarium is intact. Mastoid air cells are clear. Mild mucosal thickening of the right maxillary sinus. Soft tissues and orbits are unremarkable. IMPRESSION: No acute intracranial abnormality. ACT 112: Negative or not required by law. The above report was generated using voice recognition software. It may contain grammatical, syntax o r spelling errors. Electronically signed by: Edgar Davis M.D. 08/28/2019 10:40 AM
--- NOTE | 2019-08-28 10:52 | CT Scan Report ---
CT angio neck with con, CT angio head w con CLINICAL HISTORY: 69 years-old Male with ams. Acutely altered mental status COMPARISON STUDY: Head CT of same day. TECHNIQUE: Following the IV administration of 120 mL of Optiray 320, CT angiogram of the head and nec k was performed from the aortic arch to the skull apex. Images are reviewed in the axial, sagittal, a nd coronal planes. 3-D MIPS images are created and assessed. IV contrast was administered without com plication. All measurements were calculated based on NASCET criteria. A dose lowering technique was utilized adhering to the principles of ALARA. CT DOSE: 1250.51 mGy.cm FINDINGS: Fusiform dilation of the ascending thoracic aorta, 4.8 x 4.6 cm. The imaged pulmonary artery is unrem arkable. Prior median sternotomy with history of cardiac valvular prosthesis. Partially imaged right subclavian pacer lead. Left subclavian [id number]-t-[id number] catheter is partially imaged, distal tip not kinga ged. Moderate calcified plaque of the thoracic aortic arch with patency of the imaged subclavian ashley anni. Study is mildly motion degraded. Patent bilateral common carotid arteries. There is moderate mo stly calcified plaque of the right carotid bulb and proximal right ICA which results in less than 50% luminal narrowing. Severe calcified plaque of the left carotid bulb and proximal left ICA also resul ts in less than 50% luminal narrowing. There is tortuosity involving the bilateral proximal to mid ce rvical segments of the internal carotid arteries. Calcified plaque of the bilateral cavernous segment s. No aneurysm, dissection, high-grade stenosis or proximal branch occlusion. The bilateral middle ce rebral arteries and anterior cerebral arteries appear patent and unremarkable. Codominant vertebral arteries. Calcified plaque of the before segment right vertebral artery is noted without significant stenosis. Calcified plaque at the origin of the left vertebral artery causes mil d luminal narrowing. Calcified plaque of the V4 segment left vertebral artery results in approximatel y 50% luminal narrowing, image 3 5 series 6. Calcified plaque of the basilar artery results in approx imately 60% luminal narrowing, image 51 series 5. There is moderate luminal narrowing involving the p roximal portions of the bilateral posterior cerebral arteries cerebral venous sinuses are patent. No abnormal intracranial enhancement. No pneumothorax. Soft tissues are unremarkable. Degenerative changes are noted throughout the spine. IMPRESSION: 1. Mixed plaque of the bilateral carotid bulbs, left greater than right results in less than 50% javier nal narrowing bilaterally. 2. Calcified plaque of the basilar artery causes 60% luminal narrowing. 3. No aneurysm, dissection or proximal branch occlusion. 4. Moderate luminal narrowing at the origin of the bilateral posterior cerebral arteries. 5. Fusiform dilation of the ascending thoracic aorta, 4.8 x 4.6 cm. ACT 112: Negative or not required by law. The above report was generated using voice recognition software. It may contain grammatical, syntax o r spelling errors. Electronically signed by: Edgar Davis M.D. 08/28/2019 10:50 AM
[2019-08-28 11:04] LABS: Basophils # (auto) 0.01 K/uL (0-0.2); Basophils % (auto) 0.1 %; Eosinophils # (auto) 0.19 K/uL (0-0.5); Eosinophils % (auto) 1.5 %; Hematocrit (blood only) 39.6 % (42-52); Immature Granulocytes # (auto) 0.02 K/uL (0.00-0.02); Immature Granulocytes % (auto) 0.2 %; Lymphocytes # (auto) 1.99 K/uL (1.2-3.4); Lymphocytes % (auto) 16.1 %; Mean Corpuscular Hgb Conc 30.3 g/dL (32-36); Mean Corpuscular Volume 92.3 fL (80-100); Mean Platelet Volume 10.7 fL (7.4-10.4); Monocytes # (auto) 0.77 K/uL (0.11-0.59); Monocytes % (auto) 6.2 %; Neutrophils # (auto) 9.41 K/uL (1.4-6.5); Neutrophils % (auto) 75.9 %; Platelet Count 156 K/uL (130-400); RDW Coefficient of Variation 16.1 % (11.5-14.5); RDW Standard Deviation 53.7 fL (36.4-46.3); Red Blood Count 4.29 M/uL (4.7-6.1); White Blood Count 12.39 K/uL (4.8-10.8)
--- NOTE | 2019-08-28 11:21 | XRay Report ---
XR chest 1V portable HISTORY: 69 years-old Male weakness acute weakness COMPARISON: CTA of the neck of same day, chest radiograph 05/14/2019 TECHNIQUE: Portable AP view of the chest FINDINGS: Cardiac silhouette is enlarged. Prior median sternotomy with aortic valvular prosthesis. Skinfold pro jects of the right lung apex. Calcified plaque of the thoracic aorta. Left subclavian Akiyfn-a-Egol c atheter with right subclavian pacer/AICD redemonstrated. Pulmonary vascular congestion with interstit ial coarsening. Ill-defined airspace opacity of the lateral left midlung. Mild bibasilar consolidatio n with probable trace pleural effusions. 7 mm nodular opacity of the right midlung is unchanged. Dege nerative changes of the shoulders and spine. IMPRESSION: 1. Cardiomegaly with pulmonary edema. 2. Ill-defined opacity of the lateral left midlung may be secondary to summation density or airspace disease. 3. Bibasilar consolidation with trace pleural effusions. ACT 112: Negative or not required by law. The above report was generated using voice recognition software. It may contain grammatical, syntax o r spelling errors. Electronically signed by: Edgar Davis M.D. 08/28/2019 11:19 AM
[2019-08-28 11:22] LABS: INR 1.1 (0.9-1.1); Prothrombin Time 11.4 Seconds (9.0-12.0)
[2019-08-28 11:24] LABS: Albumin Level 2.3 gm/dl (3.4-5.0); BUN Creatinine Ratio 18.1 (10-20); Calcium 8.6 mg/dl (8.5-10.1); Creatinine Clr Calc Pharmacy 101.3 ml/min; Est GFR (African American) 105.4; Magnesium 1.7 mg/dl (1.8-2.4)
[2019-08-28] MEDS ORDERED: levETIRAcetam 1,000 MG in 0.9 % SODIUM CHLORIDE 100 ML IV STA (11:27)
[2019-08-28 11:35] LABS: Albumin Globulin Ratio 0.7 (0.9-2); Bilirubin,Total 0.2 mg/dl (0.2-1); Globulin 3.3 gm/dl (2.5-4.0); Thyroid Stimulating Hormone 2.14 uIu/ml (0.300-4.500); Total Protein 5.6 gm/dl (6.4-8.2); Troponin I 0.039 ng/ml (0-0.045)
[2019-08-28] MEDS ORDERED: CEFEPIME 2,000 MG/20 ML VIAL IV STA (11:35)
[2019-08-28 12:13] LABS: HCO3 ABG 25 mmol/L (19-24); Oxygen Saturation ABG 94.7 % (90-95); PCO2 ABG 100 mmHg (35-46); PO2 ABG 99 mmHg (80-95)
[2019-08-28 12:19] LABS: Allen Test Pos (Pos); pH ABG 7.02 (7.35-7.45)
[2019-08-28] MEDS ORDERED: RAPID SEQUENCE INDUCTION BAG ONE (12:23)
[2019-08-28] MEDS ORDERED: LORazepam 1 MG/2 ML VIAL IV STA ×2 (12:32→12:36)
[2019-08-28] MEDS ORDERED: SODIUM BICARB 8.4% INJ 50 MEQ/50 ML SYR IV STA (12:34)
[2019-08-28] MEDS ORDERED: VECURONIUM BROMIDE 10 MG VIAL IV STA (12:36)
--- NOTE | 2019-08-28 13:17 | XRay Report ---
XR chest 1V portable HISTORY: 69 years-old Male s/p intubation acute respiratory failure COMPARISON: Chest radiograph 08/28/2019 TECHNIQUE: Portable AP view of the chest FINDINGS: Cardiac silhouette is enlarged. Prior median sternotomy with prosthetic aortic valve. Status post kalyan cement of an endotracheal tube, distal tip 3.9 cm superior to the bassam. Unchanged left subclavian I uqcdn-a-Lqdj catheter and right subclavian pacer/AICD. Resolution of the previously noted lateral lef t midlung opacity. Right hemidiaphragmatic elevation is noted with persistent pulmonary vascular levar estion and interstitial coarsening. Mildly improved aeration of the left lung. Pleural effusions with bibasilar opacities redemonstrated. Degenerative changes of the shoulders and spine. IMPRESSION: Status post intubation with endotracheal tube terminating 3.9 cm superior to the bassam. ACT 112: Negative or not required by law. The above report was generated using voice recognition software. It may contain grammatical, syntax o r spelling errors. Electronically signed by: Edgar Davis M.D. 08/28/2019 1:16 PM
--- NOTE | 2019-08-28 13:46 | History & Physical Report ---
Date of Service August 28, 2019 Assessment & Plan (1) Acute respiratory failure: Admit to ICU-patient intubated for acute respiratory failure and respiratory acidosis with CO2 retention. Vital signs per ICU, Continue mechanical ventilation, Started empirically vancomycin, cefepime, doxycycline to cover for possible pneumonia. Repeat lactate which is elevated to 5.8 at this point. Blood culture, urine culture, and sputum culture pending, MRSA pending, CTA chest and CT abdomen and pelvis with contrast pending per recommendation of Dr. Jacobson. DVT prophylaxis patient is on apixaban for pulmonary embolism in the past. Patient is conditional code, accepted intubation but DO NOT RESUSCITATE. Present on Admission?: Yes (2) Respiratory acidosis: As the above treat underlying cause Present on Admission?: Yes (3) Pneumonia: As the above Present on Admission?: Yes (4) Status epilepticus: Patient was taking 500 mg nightly Keppra at home. He received 1000 mg IV of Keppra in the ER. He was also given naloxone 0.8 mg IV in the ER but that did not improve his mentation. Seizure precautions, Consult neurology Present on Admission?: Yes (5) Lactic acidosis: As discussed above Present on Admission?: Yes (6) Pulmonary embolus, right: CTA of the chest pending, Continue apixaban Present on Admission?: Yes (7) Altered mental status: As discussed above Present on Admission?: Yes (8) ICD (implantable cardioverter-defibrillator) in place: Stable no issues at this time. Present on Admission?: Yes (9) HLD (hyperlipidemia): Lipid panel pending, patient is for now n.p.o. Patient does not have statins on his list of medication. Present on Admission?: Yes (10) HTN (hypertension): Continue monitoring. Blood pressure is 100/72. Patient does not have antihypertensive medicine on his list. Present on Admission?: Yes (11) DM type 2 (diabetes mellitus, type 2): Glycemic control per pharmacy. Patient was hypoglycemic before arrival to the emergency room. Continue monitoring. Present on Admission?: Yes (12) Afib: Continue apixaban 5 mg p.o. every morning. Present on Admission?: Yes (13) Acute exacerbation of CHF (congestive heart failure): Strict in and out, Daily weight, Lasix started 40 mg IV twice daily. Monitor closely for kidney injury since patient was exposed to CTs, started on vancomycin, and now on Lasix Present on Admission?: Yes (14) Altered mental status: As discussed above Present on Admission?: Yes History of Present Illness Chief Complaint: Seizure-like activity Primary Care Provider: Erika Negro The patient is a 69 years old male with past medical history of A. fib on apixaban, seizure disorder on Keppra, diabetes mellitus type 2 hypertension, hyperlipidemia, PE, intermittent rectal bleeding, history of CVA, history of nonischemic cardiomyopathy, aortic stenosis, metastatic rectal carcinoma, aortic valve replacement, implanted ICD defibrillator, chronic systolic congestive heart failure, sleep apnea, who was brought by family to the emergency room with decreased responsiveness started this morning. Patient is enrolled in hospice care since May 2020. The name of the agency is [facility]. Family has power of civil litigation attorney if condition is terminal that he would not like to be resuscitated. ER physician had thorough discussion with the family as well as myself and family expressed their interest of patient being on the ventilator if necessary and intubated. Patient is Jain and in case that he would need blood transfusion due to very taoism believes he would not permit so as this was confirmed by the family. The family reports that patient had blood sugar of 70 in the morning and he was given pudding by family which raise his sugar to 94. They reported that they checked his BSG and it was 112. The family reports that patient was doing well on hospice and the hospice company decided to come 3 times a day instead of 5 times a day recently and that he was very active and interactive. They also report that patient is normally bedridden but able to eat on his own and carry on a conversation. Patient was not able to respond to questions about review of systems. Of the note recently patient Keppra was decreased to 500 mg nightly and patient was prior to that 1g nightly. Patient has known seizures for a long time since his CVA, but did not have any for many years up until today. Family reports that patient whole body was twitching and his oxygenation drops when he seizes. Patient is normally on 2 L of oxygen at home. The case was discussed this morning with Dr. Jacobson and family over the phone and family had opportunity to ask questions . In sum and substance pt rectal cancer is terminal and inoperable.He supposed to received final course FOLFOX chemotherapy in May. Dr. Jacobson recommended noninvasive procedures and the most intubation and ventilator. He also deferred other decisions to the family. He recommended to do CTA of the chest and abdomen and pelvis CT. Labs are reviewed:WBC is 12.39, hemoglobin 12, hematocrit 39.6, platelets 156, PT 11.4, INR 1.1, pH 7.18, PCO2 79, PO2 417, sodium 141, potassium 4, chloride 108, carbon dioxide 28, anion gap 4, BUN 14, creatinine 0.79, GFR 91, lactate 5.8, magnesium 1.7, total bilirubin, TSH 2.14. Urine pending. Keppra level pending, head /neck CT angiogram shows mixed plaque of the bilateral carotid bulbs, left greater than right resulting less than 50% luminal narrowing bilaterally. Calcified plaque of the basilar artery causing 60% luminal narrowing. No aneurysm, dissection or proximal branch occlusion. Moderate luminal narrowing at the origin of the bilateral posterior cerebral arteries. Fusiform dilatation of the ascending thoracic aorta 4.8 x 4.6 cm. Chest x-ray shows cardiac silhouette is enlarged. Paramedian sternot saw with prosthetic aortic valve. S/p placement of the endotracheal tube distal tip 3.9 cm superior to the bassam. Unchanged left subclavian [id number]-[id number] catheter and right subclavian pacer/AICD. Resolution of the previously noted lateral left midlung opacity. Right hemidiaphragmatic elevation is noted with persistent pulmonary vascular congestion and interstitial coarsening. Mildly improved aeration of the left lung. Pleural effusion with bibasilar opacities redemonstrated. Degenerative changes of the shoulder and spine. Patient had general seizure like activity while in emergency room. His oxygenation was dropping below 80% during seizure. He was on 15 L nonrebreather and later on on BiPAP and ABG demonstrated a pH of 7.02 and with CO2 retention of 79. Decision was made with permission of family to intubate patient and treat him for possible pneumonia versus acute systolic CHF exacerbation. Family is also aware that patient will probably have difficult time to be extubated later on and will need terminal wean. All possibilities were discussed with the family thoroughly and the day decided to go ahead with intubation. Allergies Allergy/AdvReac Type Severity Reaction Status Date / Time No Known Allergies Allergy Verified 08/28/19 10:26 Home Medications Home Medications Medication Instructions Recorded Confirmed Type omeprazole 20 mg PO QAM 09/07/18 08/28/19 History tamsulosin [Flomax] 0.4 mg PO HS 09/07/18 08/28/19 History diclofenac sodium [Voltaren] 1 gm TOPICAL QID PRN 04/01/19 08/28/19 History prednisone 20 mg PO QAM 04/01/19 08/28/19 History docusate sodium [Stool Softener] 500 mg PO BID 05/14/19 08/28/19 History apixaban [Eliquis] 5 mg PO QAM 08/28/19 08/28/19 History fentanyl 1 patch TRANSDERMAL Q72H 08/28/19 08/28/19 History levetiracetam [Keppra] 500 mg PO QAM 08/28/19 08/28/19 History magnesium oxide 400 mg PO QAM 08/28/19 08/28/19 History morphine concentrate 5 mg PO Q4 PRN 08/28/19 08/28/19 History Past Med/Surg History Medical History AAA (abdominal aortic aneurysm) NEW FINDING Anemia Aortic stenosis Atrial fibrillation BPH (benign prostatic hyperplasia) Cancer COLON CANCER (NEW DX) RADIATION JUST COMPLETED Chronic systolic (congestive) heart failure Colon cancer Congestive heart failure CVA (cerebral vascular accident) 08/11/18 DM type 2 (diabetes mellitus, type 2) GERD (gastroesophageal reflux disease) HLD (hyperlipidemia) HTN (hypertension) Kidney disease (Chronic) Nonischemic cardiomyopathy Osteoarthritis Seizure "SMALL SEIZURE AT TIME OF CVA 07/2018" Sleep apnea Sleep apnea (Chronic) Surgical History H/O aortic valve replacement (Chronic) 2010 AT [facility] H/O knee surgery RT/LEFT History of cardiac cath 2010 History of colonoscopy History of tooth extraction Port-A-Cath in place (Chronic) Family History Brother Family history of diabetes mellitus Mother Colon cancer Father Coronary heart disease Hypertension Sister Hypertension Grandmother Diabetes Social History Preferred Language: Egyptian Communication Ability: Unable Writing Manager Required: No Beliefs That Will Affect Care: [employer] Beliefs: congregation marital status: Current Living Situation: Family Current Living Situation Comment: brother,, sister Other Information That Helps Us Care for You: No Feels Safe at Home: Yes Safety Concerns: Feels Safe At This Time Smoking Status: Never smoker Tobacco Type: cigarettes ; Age Quit Using Tobacco: 48 ; Cigarettes Per Day: 5 ; Number of Years Since Quit: 20 ; Second Hand Exposure: No ; Hx Alcohol Use: No Hx Substance Use: No Review of Systems Review of Systems: All systems reviewed & are unremarkable except as noted in HPI & below Physical Exam Constitutional: WD/WN, vitals as above well developed, + ill appearing and + intoxicated appearing Eyes: reactive pupils ENMT: Ears: + hearing impairment Neck: trachea midline, no thyromegaly Respiratory: + respiratory distress, + labored breathing and + uses accessory muscles Auscultation: + crackles and + wheezes Cardiovascular: Heart Sounds: normal S1, normal S2 and + murmur Vessels: + JVD and normal peripheral pulses Extremities: + pedal edema Gastrointestinal (Abdomen): normal bowel sounds, soft, nontender, no hepatosplenomegaly Musculoskeletal: no cyanosis or clubbing, extremities motor strength 5/5 Skin: no rashes, warm and dry Neurologic: patellar DTR's 2+ bilat, sensation intact Psychiatric: A+Ox3, euthymic affect Genitourinary: no testicular masses, no penis abnormality Lymphatic: no cervical or axillary lymphadenopathy Results & Data Vital Signs (Past 12 Hours) Vital Signs Temp Pulse Resp BP Pulse Ox 08/28/19 12:55 102 H 107/79 97 08/28/19 12:50 105 H 110/82 94 08/28/19 12:46 112 H 123/76 98 08/28/19 12:43 103 H 20 100 08/28/19 12:30 107 H 20 103/74 95 08/28/19 12:26 106 H 111/64 86 L 08/28/19 12:21 110 H 36 H 118/58 L 89 L 08/28/19 12:16 119 H 29 H 111/70 91 08/28/19 12:10 128 H 30 H 119/64 90 08/28/19 12:06 123 H 33 H 104/58 L 89 L 08/28/19 12:01 121 H 26 H 142/63 H 86 L 08/28/19 11:55 109 H 24 118/82 93 08/28/19 11:51 116 H 23 100/56 L 92 08/28/19 11:46 126 H 19 122/89 91 08/28/19 11:41 103 H 19 108/71 91 08/28/19 11:31 56 H 128/84 85 L 08/28/19 11:25 119 H 33 H 133/96 94 08/28/19 11:21 121 H 31 H 132/82 96 08/28/19 11:20 132 H 29 H 95 08/28/19 11:15 160 H 17 147/91 H 97 08/28/19 11:11 118 H 19 138/112 H 98 08/28/19 11:05 139 H 34 H 135/95 97 08/28/19 11:00 133 H 21 136/104 H 99 08/28/19 10:55 113 H 24 126/91 98 08/28/19 10:50 106 H 29 H 99 08/28/19 10:46 98 H 21 108/72 100 08/28/19 10:41 111 H 27 H 112/78 100 08/28/19 10:35 104 H 19 128/93 97 08/28/19 10:11 105 H 29 H 116/81 100 08/28/19 10:05 109 H 24 122/93 90 08/28/19 10:02 114 H 25 H 148/94 H 71 L 08/28/19 10:01 108 H 28 H 128/109 H 72 L 08/28/19 10:00 98 08/28/19 09:57 37.3 C 124 H 12 148/94 H 75 L Code Status & VTE Plan Code Status Intubate, but DO NOT RESUSCITATE. Discussed with family. VTE Prophylaxis Plan VTE Prophylaxis will be ordered: Yes PG Care Time/CCT Total # of Minutes Spent Total Time Spent with Patient: Total time spent is greater than 50% in coordination of care (as documented) at patient's floor/unit and/or counseling patient: Coding Level of Care Code 12851 Initial Inpt Care Lvl 3 Diagnoses Acute respiratory failure J96.01; J96.02 Respiratory failure complication: hypoxia and hypercapnia Respiratory acidosis E87.2 Pneumonia J18.9 Laterality: unspecified laterality Lung location: unspecified part of lung Pneumonia type: due to unspecified organism Status epilepticus G40.901 Lactic acidosis E87.2 Pulmonary embolus, right I26.99 Altered mental status R41.82 Altered mental status type: unspecified ICD (implantable cardioverter-defibrillator) in place Z95.810 HLD (hyperlipidemia) E78.2 Hyperlipidemia type: mixed hyperlipidemia HTN (hypertension) I10 Hypertension type: essential hypertension DM type 2 (diabetes mellitus, type 2) E11.9; Z79.4 Diabetes mellitus terminal operations supervisor insulin use: with terminal operations supervisor use Diabetes mellitus complication status: without complication Afib I48.2 Atrial fibrillation type: chronic Acute exacerbation of CHF (congestive heart failure) I50.9 Altered mental status R41.82 (1) Acute respiratory failure Respiratory failure complication: hypoxia and hypercapnia Qualified Code(s): J96.01 - Acute respiratory failure with hypoxia; J96.02 - Acute respiratory failure with hypercapnia (2) Pneumonia Laterality: unspecified laterality Lung location: unspecified part of lung Pneumonia type: due to unspecified organism Qualified Code(s): J18.9 - Pneumonia, unspecified organism (3) Altered mental status Altered mental status type: unspecified Qualified Code(s): R41.82 - Altered mental status, unspecified (4) HLD (hyperlipidemia) Hyperlipidemia type: mixed hyperlipidemia Qualified Code(s): E78.2 - Mixed hyperlipidemia (5) HTN (hypertension) Hypertension type: essential hypertension Qualified Code(s): I10 - Essential (primary) hypertension (6) DM type 2 (diabetes mellitus, type 2) Diabetes mellitus terminal operations supervisor insulin use: with terminal operations supervisor use Diabetes mellitus complication status: without complication Qualified Code(s): E11.9 - Type 2 diabetes mellitus without complications; Z79.4 - intermediate accountant (current) use of insulin (7) Afib Atrial fibrillation type: chronic Qualified Code(s): I48.2 - Chronic atrial fibrillation
[2019-08-28 13:53] LABS: Amphetamines+Metham, Urine Neg (Neg); Barbiturates, Urine Neg (Neg); Benzodiazepine, Urine Neg (Neg); Cocaine, Urine Neg (Neg); MDMA (Ecstacy), Urine Neg (Neg); Methadone, Urine Neg (Neg); Opiate, Urine Pos (Neg); Phencyclidine, Urine Neg (Neg)
[2019-08-28] MEDS ORDERED: PHARMACY GLYCEMIC MGMT CONSULT PRN (14:03)
[2019-08-28 14:50] LABS: Appearance Urine Cloudy (Clear); Bacteria Urine Automated 1+ (Negative); Bilirubin Urine Negative (Negative); Blood Urine 2+ (Negative); Color Urine Yellow; Epithelial Cell Urine Auto >30 /lpf (0-5); Glucose Urine UA Negative (Negative); Ketones Urine Negative (Negative); Leukocyte Esterase Urine Trace (Negative); Nitrite Urine Negative (Negative); Protein Urine 2+ (Negative); Specific Gravity Urine > 1.045 (1.000-1.030); Urobilinogen Urine Negative (Negative); WBC Urine Automated >30 /hpf (0-5)
[2019-08-28 15:01] LABS: Amorphous Sediment Urine Present (None Prsent)
[2019-08-28 15:02] LABS: Cast Urine Automated 0 /lpf (0-5)
[2019-08-28] MEDS ORDERED: MoRPHine SULFATE 10 MG/0.5 ML UDP PO PRN (15:13)
[2019-08-28] MEDS ORDERED: GLUCAGON FOR INJ 1 MG VIAL SQ PRN (15:13)
[2019-08-28] MEDS ORDERED: CARBOHYDRATES FOR HYPOGLYCEMIA PO PRN (15:13)
[2019-08-28] MEDS ORDERED: fentaNYL 75 MCG/HR TDSY TD SCH (15:13)
[2019-08-28] MEDS ORDERED: GLUCOSE 40% GEL 15 GM TUBE PO PRN (15:13)
[2019-08-28] MEDS ORDERED: DICLOFENAC SOD 1% GEL 100 GM TUBE EXT PRN (15:13)
[2019-08-28] MEDS ORDERED: GLUCOSE 10 TABS/TUBE PO PRN (15:13)
[2019-08-28] MEDS ORDERED: VANCOMYCIN CONSULT ACTIVE PRN (15:13)
[2019-08-28] MEDS ORDERED: DEXTROSE 50% 50 ML SYRINGE IV PRN (15:13)
[2019-08-28] MEDS ORDERED: VANCOMYCIN HCL 2,250 MG in SODIUM CHLORIDE 0.9% 500 ML IV ONE (15:30)
[2019-08-28] MEDS ORDERED: CHECK FENTANYL PATCH PLACEMENT SCH (16:00)
[2019-08-28 16:11] LABS: Thyroid Stimulating Hormone 1.28 uIu/ml (0.300-4.500)
--- NOTE | 2019-08-28 16:26 | Pharmacy Report ---
Pharmacy Abx Initial Consult - Date of Service August 28, 2019 - Pharmacy Dosing Scope Date of Consult: 08/28/19 Consultation requested by: Dr. Miller Pharmacy is consulted to initiate vancomycin IV dosing therapy, order appropriate labs and adjust drug dose/frequency. - Subjective The patient is a 69 year old M admitted on 08/28/19 12:54. - Objective Height: 5 ft 9 in Weight: 90.1 kg Vital Signs (Past 12hrs): Vital Signs Temp Pulse Pulse Resp BP BP Pulse Ox 08/28/19 15:13 08/28/19 14:18 37.2 C 74 20 91/71 L 99 08/28/19 13:50 78 100/72 95 08/28/19 13:45 84 102/77 96 08/28/19 13:40 90 110/76 96 08/28/19 13:35 89 101/73 97 08/28/19 13:32 78 20 100/73 96 08/28/19 13:25 88 105/74 95 08/28/19 13:20 83 102/72 94 08/28/19 13:15 87 104/71 95 08/28/19 13:10 88 109/78 95 08/28/19 13:05 91 H 109/75 94 08/28/19 12:55 102 H 107/79 97 08/28/19 12:50 105 H 110/82 94 08/28/19 12:46 112 H 123/76 98 08/28/19 12:43 103 H 20 100 08/28/19 12:30 107 H 20 103/74 95 08/28/19 12:26 106 H 111/64 86 L 08/28/19 12:21 110 H 36 H 118/58 L 89 L 08/28/19 12:16 119 H 29 H 111/70 91 08/28/19 12:10 128 H 30 H 119/64 90 08/28/19 12:06 123 H 33 H 104/58 L 89 L 08/28/19 12:01 121 H 26 H 142/63 H 86 L 08/28/19 11:55 109 H 24 118/82 93 08/28/19 11:51 116 H 23 100/56 L 92 08/28/19 11:46 126 H 19 122/89 91 08/28/19 11:41 103 H 19 108/71 91 08/28/19 11:31 56 H 128/84 85 L 08/28/19 11:25 119 H 33 H 133/96 94 08/28/19 11:21 121 H 31 H 132/82 96 08/28/19 11:20 132 H 29 H 95 08/28/19 11:15 160 H 17 147/91 H 97 08/28/19 11:11 118 H 19 138/112 H 98 08/28/19 11:05 139 H 34 H 135/95 97 08/28/19 11:00 133 H 21 136/104 H 99 08/28/19 10:55 113 H 24 126/91 98 08/28/19 10:50 106 H 29 H 99 08/28/19 10:46 98 H 21 108/72 100 08/28/19 10:41 111 H 27 H 112/78 100 08/28/19 10:35 104 H 19 128/93 97 08/28/19 10:11 105 H 29 H 116/81 100 08/28/19 10:05 109 H 24 122/93 90 08/28/19 10:02 114 H 25 H 148/94 H 71 L 08/28/19 10:01 108 H 28 H 128/109 H 72 L 08/28/19 10:00 98 08/28/19 09:57 37.3 C 124 H 12 148/94 H 75 L Pulse Ox 08/28/19 15:13 100 08/28/19 14:18 08/28/19 13:50 08/28/19 13:45 08/28/19 13:40 08/28/19 13:35 08/28/19 13:32 08/28/19 13:25 08/28/19 13:20 08/28/19 13:15 08/28/19 13:10 08/28/19 13:05 08/28/19 12:55 08/28/19 12:50 08/28/19 12:46 08/28/19 12:43 08/28/19 12:30 08/28/19 12:26 08/28/19 12:21 08/28/19 12:16 08/28/19 12:10 08/28/19 12:06 08/28/19 12:01 08/28/19 11:55 08/28/19 11:51 08/28/19 11:46 08/28/19 11:41 08/28/19 11:31 08/28/19 11:25 08/28/19 11:21 08/28/19 11:20 08/28/19 11:15 08/28/19 11:11 08/28/19 11:05 08/28/19 11:00 08/28/19 10:55 08/28/19 10:50 08/28/19 10:46 08/28/19 10:41 08/28/19 10:35 08/28/19 10:11 08/28/19 10:05 08/28/19 10:02 08/28/19 10:01 08/28/19 10:00 08/28/19 09:57 Lab Results (24hrs): Laboratory Tests (24 Hours) 08/28/19 08/28/19 10:45 10:45 WBC 12.39 H Neut # (Auto) 9.41 H Creatinine 0.79 Est Cr Clr Drug Dosing 101.3 Total Creatine Kinase 28 L Micro Results: 08/28/19 13:10 Urine Culture - Pending Urine,Clean Catch 08/28/19 11:55 Aerobic Blood Culture - Pending Blood Anaerobic Blood Culture - Pending 08/28/19 11:28 Aerobic Blood Culture - Pending Blood Anaerobic Blood Culture - Pending - Assessment & Plan Assessment 69 year old M admitted to [facility] with acute respiratory failure Started empirically vancomycin, cefepime, doxycycline to cover for possible pneumonia Blood culture, urine culture, and sputum culture pending MRSA nasal swab pending Plan Vancomycin IV * Estimated PK Parameters: Vd 0.7 L/kg, Dilip 0.083 hr-1, t1/2 8 hr * Loading dose: 2250 mg (25 mg/kg) * Maintenance dose: 1750 mg IV (19 mg/kg) every 12 hours * Goal trough level: 15 to 20 mcg/mL * Trough will be ordered prior to 4th dose is antibiotic is continued Pharmacy will continue to follow and will adjust dose/frequency as necessary. Thank you.
[2019-08-28] MEDS ORDERED: MAGNESIUM SULFATE / D5W 1 GM/100 ML BAG IV ONE (16:30)
[2019-08-28] MEDS ORDERED: VECURONIUM BROMIDE 10 MG VIAL IV ONE (16:32)
[2019-08-28] MEDS ORDERED: ETOMIDATE 2 MG/ML 20 ML VIAL IV ONE (16:32)
[2019-08-28] MEDS: FUROSEMIDE 40 MG in SYRINGE 0 ML IV SCH (17:12)
[2019-08-28 17:20] LABS: Influenza A virus by PCR Neg for Influ A (Neg); Influenza B virus by PCR Neg for Influ B (Neg)
[2019-08-28 17:39] LABS: iSTAT Allen Test Pass; iSTAT Art Bld Gas pCO2 Correct 47 mmHg (35-46); iSTAT Art Bld Gas pH Corrected 7.436 (7.35-7.45); iSTAT Arterial Blood Gas HCO3 32 meg/L (19-24); iSTAT Arterial Blood Gas pCO2 47 mmHg (35-46); iSTAT Arterial Blood Gas pH 7.44 (7.35-7.45); iSTAT Arterial Blood Gas pO2 230 mmHg (80-95); iSTAT Arterial Blood Gas pO2 C 230; iSTAT Carbon Dioxide 33 mmol/L (24-31); iSTAT Hematocrit 34 % (42-52); iSTAT Hemoglobin 11.6 g/dl (14.0-18.0); iSTAT Potassium 4.1 mmol/L (3.3-5.0); iSTAT Site L Radial; iSTAT Sodium 140 mmol/L (135-144)
--- NOTE | 2019-08-28 19:38 | Critical Care Consultation ---
Date of Consultation August 28, 2019 Assessment & Plan (1) Acute encephalopathy: Reason Critically Ill: 69-year-old male with metastatic disease and acute encephalopathy PLAN: Neuro: Acute encephalopathy -Neuro imaging History of seizures -EEG Resp: Respiratory failure -Wean ventilator as tolerated Fluids/Renal: Supplemental fluids Lactic acidosis -Wean fluids ID: Broad-spectrum antibiotics -Blood culture sent GI/Nutrition: N.p.o. Heme: Holding anticoagulation Endocrine: ICU hyperglycemia protocol Code Status: DNR in event of cardiac arrest after discussion with family Disposition: ICU History of Present Illness Reason for Consultation: Acute hypoxic/hypercarbic respiratory failure Requesting Physician: Padmini Miller MD Attending Physician: Padmini Miller MD History of Present Illness History is obtained largely from family members at the bedside. Patient is an unfortunate 69-year-old male who has adenocarcinoma of the rectum. In review of oncology follow notes dated 04/25/2019 this carcinoma is locally advanced and unresectable. Radiation therapy was completed November 03, 2018. Notes indicate patient received a pacemaker internal defibrillator secondary to 2 syncopal episodes brought on by ventricular tachycardia. When I was speaking with the family they thought this was in preparation for possible surgical management. Notes indicate CT abdomen pelvis on October 21, 2018 redemonstrating multiple metastatic regional lymph nodes. He was discussed at tumor board deemed to be not a surgical candidate and proceed with palliative radiation and systemic chemotherapy. Family reports he is done with both chemotherapy and radiation. Family reports to me that today is the first day they have heard that the patient had a terminal process and was not a candidate for any form of surgery. Their intention is the patient was reported to be alert oriented and enjoying life as of yesterday and had a very sudden change in his condition today. He has a known seizure history after a stroke approximately 12 to 18 months ago. He has not had seizures until 3 witnessed today in the emergency department. They requested he be intubated if they can figure out what had occurred and if the patient has a life expectancy of a couple months they would proceed with treatments, if he had a short life expectancy they would likely proceed with a terminal extubation. All in the room agreed that the patient does not want to be on any form of prolonged life support. Allergies Allergy/AdvReac Type Severity Reaction Status Date / Time No Known Allergies Allergy Verified 08/28/19 10:26 Home Medications Home Medications Medication Instructions Recorded Confirmed Type omeprazole 20 mg PO QAM 09/07/18 08/28/19 History tamsulosin [Flomax] 0.4 mg PO HS 09/07/18 08/28/19 History diclofenac sodium [Voltaren] 1 gm TOPICAL QID PRN 04/01/19 08/28/19 History prednisone 20 mg PO QAM 04/01/19 08/28/19 History docusate sodium [Stool Softener] 500 mg PO BID 05/14/19 08/28/19 History Eliquis 5 mg PO QAM 08/28/19 08/28/19 History morphine concentrate 5 mg PO Q4 PRN 08/28/19 08/28/19 History amoxicillin-pot clavulanate 1 tab PO BID #14 tab 09/01/19 Rx [Augmentin] fentanyl 1 patch TD Q72H #5 ea 09/01/19 Rx levetiracetam [Keppra] 500 mg PO BID 30 Days #60 tab 09/01/19 Rx Patient History Medical History (Updated 08/31/19 @ 20:02 by AMANDEEP Ramirez) AAA (abdominal aortic aneurysm) NEW FINDING Anemia Aortic stenosis Atrial fibrillation BPH (benign prostatic hyperplasia) Cancer COLON CANCER (NEW DX) RADIATION JUST COMPLETED Chronic systolic (congestive) heart failure Colon cancer Congestive heart failure CVA (cerebral vascular accident) 08/11/18 DM type 2 (diabetes mellitus, type 2) GERD (gastroesophageal reflux disease) Goals of care, counseling/discussion HLD (hyperlipidemia) HTN (hypertension) Kidney disease (Chronic) Nonischemic cardiomyopathy Osteoarthritis Seizure "SMALL SEIZURE AT TIME OF CVA 07/2018" Sleep apnea Sleep apnea (Chronic) Surgical History H/O aortic valve replacement (Chronic) 2010 AT [facility] H/O knee surgery RT/LEFT History of cardiac cath 2010 History of colonoscopy History of tooth extraction Port-A-Cath in place (Chronic) Family History Brother Family history of diabetes mellitus Mother Colon cancer Father Coronary heart disease Hypertension Sister Hypertension Grandmother Diabetes Social History Preferred Language: [place] Communication Ability: Unable Organic Search Lead Required: No Beliefs That Will Affect Care: Church Church Beliefs: worship marital status: Current Living Situation: Family Current Living Situation Comment: brother,, sister Feels Safe at Home: Yes Smoking Status: Never smoker Tobacco Type: cigarettes ; Age Quit Using Tobacco: 48 ; Cigarettes Per Day: 5 ; Number of Years Since Quit: 20 ; Second Hand Exposure: No ; Hx Alcohol Use: No Hx Substance Use: No Results & Data ([facility]) Vital Signs (Past 12 Hours) Vital Signs Temp Pulse Pulse Resp BP BP Pulse Ox 08/28/19 17:30 81 98 08/28/19 17:23 71 97/69 L 100 08/28/19 17:15 82 100 08/28/19 17:08 73 104/75 100 08/28/19 17:00 70 100 08/28/19 16:53 72 96/72 L 100 08/28/19 16:45 76 100 08/28/19 16:38 73 92/68 L 100 08/28/19 16:30 78 100 08/28/19 16:23 67 94/73 L 100 08/28/19 16:15 77 100 08/28/19 16:08 80 92/67 L 100 08/28/19 16:00 74 100 08/28/19 15:53 82 97/63 L 99 08/28/19 15:45 81 100 08/28/19 15:38 70 96/70 L 100 08/28/19 15:30 87 99 08/28/19 15:23 89 100/74 99 08/28/19 15:15 75 100 08/28/19 15:13 08/28/19 15:08 82 98/74 L 100 08/28/19 15:00 84 100 08/28/19 14:53 84 100/75 100 08/28/19 14:45 84 100 08/28/19 14:38 75 97/76 L 100 08/28/19 14:30 82 100 08/28/19 14:18 37.2 C 74 20 91/71 L 99 08/28/19 14:17 85 91/71 L 91 08/28/19 14:15 78 100 08/28/19 14:08 74 122/82 100 08/28/19 14:06 84 08/28/19 13:50 78 100/72 95 08/28/19 13:45 84 102/77 96 08/28/19 13:40 90 110/76 96 08/28/19 13:35 89 101/73 97 08/28/19 13:32 78 20 100/73 96 08/28/19 13:25 88 105/74 95 08/28/19 13:20 83 102/72 94 08/28/19 13:15 87 104/71 95 08/28/19 13:10 88 109/78 95 08/28/19 13:05 91 H 109/75 94 08/28/19 12:55 102 H 107/79 97 08/28/19 12:50 105 H 110/82 94 08/28/19 12:46 112 H 123/76 98 08/28/19 12:43 103 H 20 100 08/28/19 12:30 107 H 20 103/74 95 08/28/19 12:26 106 H 111/64 86 L 08/28/19 12:21 110 H 36 H 118/58 L 89 L 08/28/19 12:16 119 H 29 H 111/70 91 08/28/19 12:10 128 H 30 H 119/64 90 08/28/19 12:06 123 H 33 H 104/58 L 89 L 08/28/19 12:01 121 H 26 H 142/63 H 86 L 08/28/19 11:55 109 H 24 118/82 93 08/28/19 11:51 116 H 23 100/56 L 92 08/28/19 11:46 126 H 19 122/89 91 08/28/19 11:41 103 H 19 108/71 91 08/28/19 11:31 56 H 128/84 85 L 08/28/19 11:25 119 H 33 H 133/96 94 08/28/19 11:21 121 H 31 H 132/82 96 08/28/19 11:20 132 H 29 H 95 08/28/19 11:15 160 H 17 147/91 H 97 08/28/19 11:11 118 H 19 138/112 H 98 08/28/19 11:05 139 H 34 H 135/95 97 08/28/19 11:00 133 H 21 136/104 H 99 08/28/19 10:55 113 H 24 126/91 98 08/28/19 10:50 106 H 29 H 99 08/28/19 10:46 98 H 21 108/72 100 08/28/19 10:41 111 H 27 H 112/78 100 08/28/19 10:35 104 H 19 128/93 97 08/28/19 10:11 105 H 29 H 116/81 100 08/28/19 10:05 109 H 24 122/93 90 08/28/19 10:02 114 H 25 H 148/94 H 71 L 08/28/19 10:01 108 H 28 H 128/109 H 72 L 08/28/19 10:00 98 08/28/19 09:57 37.3 C 124 H 12 148/94 H 75 L Pulse Ox 08/28/19 17:30 08/28/19 17:23 08/28/19 17:15 08/28/19 17:08 08/28/19 17:00 08/28/19 16:53 08/28/19 16:45 08/28/19 16:38 08/28/19 16:30 08/28/19 16:23 08/28/19 16:15 08/28/19 16:08 08/28/19 16:00 08/28/19 15:53 08/28/19 15:45 08/28/19 15:38 08/28/19 15:30 08/28/19 15:23 08/28/19 15:15 08/28/19 15:13 100 08/28/19 15:08 08/28/19 15:00 08/28/19 14:53 08/28/19 14:45 08/28/19 14:38 08/28/19 14:30 08/28/19 14:18 08/28/19 14:17 08/28/19 14:15 08/28/19 14:08 08/28/19 14:06 08/28/19 13:50 08/28/19 13:45 08/28/19 13:40 08/28/19 13:35 08/28/19 13:32 08/28/19 13:25 08/28/19 13:20 08/28/19 13:15 08/28/19 13:10 08/28/19 13:05 08/28/19 12:55 08/28/19 12:50 08/28/19 12:46 08/28/19 12:43 08/28/19 12:30 08/28/19 12:26 08/28/19 12:21 08/28/19 12:16 08/28/19 12:10 08/28/19 12:06 08/28/19 12:01 08/28/19 11:55 08/28/19 11:51 08/28/19 11:46 08/28/19 11:41 08/28/19 11:31 08/28/19 11:25 08/28/19 11:21 08/28/19 11:20 08/28/19 11:15 08/28/19 11:11 08/28/19 11:05 08/28/19 11:00 08/28/19 10:55 08/28/19 10:50 08/28/19 10:46 08/28/19 10:41 08/28/19 10:35 08/28/19 10:11 08/28/19 10:05 08/28/19 10:02 08/28/19 10:01 08/28/19 10:00 08/28/19 09:57 Coding Level of Care Code Critical Care ea addt'l 30 min Diagnoses Acute encephalopathy G93.40 Time Spent (min) 50 Comment I have personally spent 50 minutes of critical care time in the direct management of this patient. This is a life/limb threatening event. This includes time spent evaluating patient, direct bedside care, chart review, placing orders, interpretation of diagnostic studies, discussion with consultants, patient, and/or family members regarding treatment decisions, as well as other required patient management activities. This time is exclusive of all separately billable procedures, and teaching time and separate from and in addition to any other critical care service time.
--- NOTE | 2019-08-28 19:48 | Electroencephalogram ---
EEG Procedure Note Date of Service August 28, 2019 Start / End Times Start Time: 7:02 End Time: 7:22 Referring Physician Gaston Mandel History respiratory failure, status epilepticus? Home Medication List Home Medications Medication Instructions Recorded Confirmed Type omeprazole 20 mg PO QAM 09/07/18 08/28/19 History tamsulosin [Flomax] 0.4 mg PO HS 09/07/18 08/28/19 History diclofenac sodium [Voltaren] 1 gm TOPICAL QID PRN 04/01/19 08/28/19 History prednisone 20 mg PO QAM 04/01/19 08/28/19 History docusate sodium [Stool Softener] 500 mg PO BID 05/14/19 08/28/19 History apixaban [Eliquis] 5 mg PO QAM 08/28/19 08/28/19 History fentanyl 1 patch TRANSDERMAL Q72H 08/28/19 08/28/19 History levetiracetam [Keppra] 500 mg PO QAM 08/28/19 08/28/19 History magnesium oxide 400 mg PO QAM 08/28/19 08/28/19 History morphine concentrate 5 mg PO Q4 PRN 08/28/19 08/28/19 History Inpatient Medication List Furosemide 40 mg/ Syringe 4 mls @ 4 mls/min IV [id number] JENNIFFER Stop: 09/27/19 16:59 Last Admin: 08/28/19 17:12 Dose: 4 mls/min Documented by: [id number] Discontinued Medications Sodium Chloride (Nss) 500 mls @ 999 mls/hr IV .Q31M JENNIFFER Stop: 08/28/19 10:45 Last Infusion: 08/28/19 11:32 Dose: 0 mls/hr Documented by: [id number] Admin: 08/28/19 10:20 Dose: 999 mls/hr Documented by: [id number] Naloxone HCl 0.8 mg/ Syringe 3.8 mls @ 1 mls/min IV NOW STA Stop: 08/28/19 10:10 Last Admin: 08/28/19 10:40 Dose: Not Given Documented by: [id number] Levetiracetam 1,000 mg/ Sodium (Chloride) 110 mls @ 440 mls/hr IV NOW STA Stop: 08/28/19 11:41 Last Infusion: 08/28/19 12:07 Dose: 0 mls/hr Documented by: [id number] Admin: 08/28/19 11:46 Dose: 440 mls/hr Documented by: [id number] Cefepime HCl (Maxipime) 2,000 mg in 20 mls @ 5 mls/min IV NOW STA; Protocol Stop: 08/28/19 11:38 Last Admin: 08/28/19 11:56 Dose: 5 mls/min Documented by: [id number] Lorazepam (Ativan) 1 mg in 2 mls @ 2 mls/min IV NOW STA Stop: 08/28/19 12:33 Last Admin: 08/28/19 12:38 Dose: 2 mls/min Documented by: [id number] Lorazepam (Ativan) 1 mg in 2 mls @ 2 mls/min IV NOW STA Stop: 08/28/19 12:37 Last Admin: 08/28/19 12:38 Dose: 2 mls/min Documented by: [id number] Magnesium Sulfate/Dextrose (Magnesium Sulfate / D5w) 1 gm in 100 mls @ 100 mls/hr IV ONE ONE Stop: 08/28/19 17:29 Last Infusion: 08/28/19 17:14 Dose: 0 mls/hr Documented by: [id number] Admin: 08/28/19 16:16 Dose: 100 mls/hr Documented by: [id number] Vancomycin HCl 2,250 mg/ (Sodium Chloride) 545 mls @ 200 mls/hr IV 1530 ONE Stop: 08/28/19 18:13 Last Admin: 08/28/19 16:16 Dose: 200 mls/hr Documented by: [id number] Ioversol (Optiray 320 125ml) 120 ml IV ONCE PRN PRN Reason: Interaction Checking Stop: 09/01/19 10:24 Last Admin: 08/28/19 10:26 Dose: 120 ml Documented by: [id number] Miscellaneous () Confirm Administered Dose 1 ea .ROUTE .STK-MED ONE Stop: 08/28/19 12:24 Last Admin: 08/28/19 16:12 Dose: Not Given Documented by: [id number] Miscellaneous (Fentanyl Patch Check Placement) 1 ea N/A QS JENNIFFER Stop: 09/27/19 15:59 Last Admin: 08/28/19 16:12 Dose: Not Given Documented by: [id number] Naloxone HCl (Narcan) Confirm Administered Dose 0.8 mg .ROUTE .STK-MED ONE Stop: 08/28/19 10:12 Last Admin: 08/28/19 10:12 Dose: 0.8 mg Documented by: [id number] Sodium Bicarbonate (Sodium Bicarbonate 8.4%) 100 meq IV NOW STA Stop: 08/28/19 12:35 Last Admin: 08/28/19 12:52 Dose: 100 meq Documented by: [id number] Vecuronium Kinney (Norcuron) 10 mg IV NOW STA Stop: 08/28/19 12:37 Last Admin: 08/28/19 12:39 Dose: 10 mg Documented by: [id number] Cosigned by: [id number] Description This is a 21 electrode EEG with a single channel dedicated to limited EKG. The electrodes were placed in accordance with the International 10-20 system. There is a poorly organized low amplitude background rhythm that consists of a mix of 6 Hz theta slowing and intermittent frontal delta activity. A 10 Hz alpha rhythm is observed rarely throughout the study. Photic stimulation is unremarkable. A burst suppression pattern is not observed. Epileptiform abnormalities are not observed. Status epilepticus is not observed. Interpretation This is an abnormal awake/drowsy EEG revealing findings consistent with a severe encephalopathy. Epileptiform abnormalities are not seen. Further clinical correlation needed. Consider cerebral anoxia vs metabolic causes. [facility] EEG Procedure Codes Indication for Procedure (1) Acute respiratory failure: (2) Status epilepticus: Neurology Neurology: [id number] EEG include record awake & drowsy
[2019-08-28] MEDS: CEFEPIME 2,000 MG in SYRINGE 7.5 ML IV SCH (20:53)
[2019-08-28] MEDS ORDERED: APIXABAN 5 MG TABLET PO SCH (21:00)
[2019-08-28] MEDS ORDERED: FUROSEMIDE 40 MG/4 ML VIAL IV SCH (21:00)
[2019-08-28] MEDS: TAMSULOSIN HCL 0.4 MG CAP PO SCH (21:33)
[2019-08-28] MEDS: DOCUSATE CALCIUM 240 MG CAPSULE PO SCH (21:33)
[2019-08-28] MEDS: levETIRAcetam 500 MG in 0.9 % SODIUM CHLORIDE 100 ML IV SCH (21:34)
[2019-08-28] MEDS: DOXYCYCLINE HYCLATE 100 MG in DEXTROSE 5% 100 ML IV SCH (21:34)
[2019-08-29] MEDS ORDERED: STAT IV Infusion **Titration per Protocol STA ×2 (01:07→19:13)
[2019-08-29] MEDS ORDERED: propofoL 1,000 MG/100 ML VIAL IV SCH (01:15)
[2019-08-29 01:22] LABS: Base Excess ABG 5.3 mEq/L (-9-1.8); HCO3 ABG 28 mmol/L (19-24); Oxygen Saturation ABG 96.9 % (90-95); PCO2 ABG 35 mmHg (35-46); PO2 ABG 80 mmHg (80-95)
[2019-08-29 01:23] LABS: Allen Test Pos (Pos)
[2019-08-29 01:24] LABS: pH ABG 7.53 (7.35-7.45)
[2019-08-29] MEDS: VANCOMYCIN HCL 1,750 MG in SODIUM CHLORIDE 0.9% 500 ML IV SCH ×2 (03:31→16:16)
[2019-08-29] MEDS: CEFEPIME 2,000 MG in SYRINGE 7.5 ML IV SCH ×2 (03:31→11:43)
[2019-08-29 05:19] LABS: Basophils # (auto) 0.01 K/uL (0-0.2); Basophils % (auto) 0.1 %; Eosinophils # (auto) 0.01 K/uL (0-0.5); Eosinophils % (auto) 0.1 %; Hematocrit (blood only) 35.2 % (42-52); Hemoglobin 10.8 g/dL (14.0-18.0); Immature Granulocytes # (auto) 0.02 K/uL (0.00-0.02); Immature Granulocytes % (auto) 0.2 %; Lymphocytes # (auto) 1.28 K/uL (1.2-3.4); Lymphocytes % (auto) 11.3 %; Mean Corpuscular Hemoglobin 27.8 pg (25-34); Mean Corpuscular Hgb Conc 30.7 g/dL (32-36); Mean Corpuscular Volume 90.5 fL (80-100); Mean Platelet Volume 10.1 fL (7.4-10.4); Monocytes # (auto) 0.58 K/uL (0.11-0.59); Monocytes % (auto) 5.1 %; Neutrophils # (auto) 9.38 K/uL (1.4-6.5); Neutrophils % (auto) 83.2 %; Platelet Count 149 K/uL (130-400); RDW Coefficient of Variation 16.3 % (11.5-14.5); RDW Standard Deviation 53.1 fL (36.4-46.3); Red Blood Count 3.89 M/uL (4.7-6.1); White Blood Count 11.28 K/uL (4.8-10.8)
[2019-08-29] MEDS ORDERED: fentaNYL citrate 100 MCG/2 ML VIAL IV STA ×2 (05:35→11:34)
[2019-08-29] MEDS ORDERED: fentaNYL citrate 100 MCG/2 ML VIAL ONE ×2 (05:38→11:40)
[2019-08-29 05:48] LABS: Albumin Level 2.1 gm/dl (3.4-5.0); BUN Creatinine Ratio 18.9 (10-20); Calcium 8.6 mg/dl (8.5-10.1); Creatinine Clr Calc Pharmacy 89.7 ml/min; Est GFR (African American) 102.3; Est GFR (Non-African American) 88.3; Magnesium 1.9 mg/dl (1.8-2.4); Potassium 3.7 mmol/L (3.5-5.1)
[2019-08-29 05:48] LABS: iSTAT Allen Test Pass; iSTAT Art Bld Gas pCO2 Correct 34 mmHg (35-46); iSTAT Art Bld Gas pH Corrected 7.581 (7.35-7.45); iSTAT Arterial Blood Gas HCO3 31 meg/L (19-24); iSTAT Arterial Blood Gas pCO2 33 mmHg (35-46); iSTAT Arterial Blood Gas pH 7.58 (7.35-7.45); iSTAT Arterial Blood Gas pO2 72 mmHg (80-95); iSTAT Arterial Blood Gas pO2 C 72; iSTAT Carbon Dioxide 32 mmol/L (24-31); iSTAT Hematocrit 31 % (42-52); iSTAT Hemoglobin 10.5 g/dl (14.0-18.0); iSTAT Potassium 3.5 mmol/L (3.3-5.0); iSTAT Site R Radial; iSTAT Sodium 138 mmol/L (135-144)
[2019-08-29 05:52] LABS: Albumin Globulin Ratio 0.7 (0.9-2); Bilirubin,Total 0.5 mg/dl (0.2-1); Phosphorus 3.7 mg/dl (2.5-4.9); Total Protein 5.1 gm/dl (6.4-8.2)
[2019-08-29 06:18] LABS: Estimated Average Glucose 111 mg/dl; Hemoglobin A1C 5.5 % (4.5-5.6)
[2019-08-29] MEDS: DOXYCYCLINE HYCLATE 100 MG in DEXTROSE 5% 100 ML IV SCH ×2 (08:44→21:23)
[2019-08-29] MEDS: FUROSEMIDE 40 MG in SYRINGE 0 ML IV SCH ×2 (08:44→16:17)
[2019-08-29] MEDS: DOCUSATE CALCIUM 240 MG CAPSULE PO SCH ×4 (08:44→21:30)
[2019-08-29] MEDS: PANTOprazole 40 MG TAB PO SCH ×2 (08:45→08:48)
[2019-08-29] MEDS: levETIRAcetam 500 MG in 0.9 % SODIUM CHLORIDE 100 ML IV SCH ×2 (08:45→21:24)
[2019-08-29] MEDS: predniSONE 20 MG TAB PO SCH (08:45)
[2019-08-29] MEDS: MAGNESIUM OXIDE 400 MG TAB PO SCH (08:45)
--- NOTE | 2019-08-29 08:50 | Hospitalist Progress Note ---
Date of Service August 29, 2019 Assessment & Plan (1) Acute respiratory failure: Admit to ICU-patient intubated for acute respiratory failure and respiratory acidosis with CO2 retention. due to likely aspiration pneumonia, aspiration event with seizure activity and inability to protect airway remains intubated today, will perform SBT tomorrow per pulmonary had bronchoscopy today (2) Respiratory acidosis: resolved with ventilation this was due to respiratory arrest, hypoventilation (3) Pneumonia: aspiration pneumonia, likely around the time of seizure activity mucous plugging of the left mainstem bronchus s/p bronchoscopy with lavage on 08/28, tolerated well continue Zosyn and Doxycycline, needs 7 days (4) Status epilepticus: Patient was taking 500 mg nightly Keppra at home (underdosed, supposed to be on 500mg BID) He received 1000 mg IV of Keppra in the ER. d/w Dr. Raygoza, EEG here shows generalized slowing but he is on sedation would like to repeat off of Propofol continue Keppra 500mg IV BID (5) Lactic acidosis: improving with supportive care (6) Pulmonary embolus, right: CTA of the chest does not show obvious PE, although there is a lot of motion artifact Continue apixaban (7) Altered mental status: post ictal now sedated, will see how he responds when sedation weaned off (8) ICD (implantable cardioverter-defibrillator) in place: Stable no issues at this time. (9) HLD (hyperlipidemia): Lipid panel pending, patient is for now n.p.o. Patient does not have statins on his list of medication. (10) HTN (hypertension): Continue monitoring. Blood pressure is 100/72. Patient does not have antihypertensive medicine on his list. (11) DM type 2 (diabetes mellitus, type 2): Glycemic control per pharmacy. Patient was hypoglycemic before arrival to the emergency room. Continue monitoring. (12) Afib: Continue apixaban 5 mg p.o. every morning. (13) Acute exacerbation of CHF (congestive heart failure): Strict in and out, Daily weight, Lasix started 40 mg IV twice daily. negative fluid balance today (14) Naye-rectal abscess: evaluated by general surgery, the abscess is draining, no role for surgery continue Zosyn Admission and Anticipated Discharge Date Admission Date: August 28, 2019 Anticipated date of discharge: 09/02/19 Subjective patient sedated on ventilator discussed with Dr. Raygoza this morning, EEG just shows slowing, would need to repeat off of propofol discussed with ICU team, had bronchoscopy today, suctioning of mucous plugging in left mainstem bronchus appreciate surgical consult, no plans for intervention with perirectal abscess since it is draining reviewed chart labs show WBC of 11k, BMP shows stable electrolytes and renal function Review of Systems Review of Systems: Unobtainable due to endotracheal tube Physical Exam Constitutional: well developed, + ill appearing and + mechanically ventilated; no acute distress Eyes: PERRL, conjunctivae normal, anicteric sclerae ENMT: external ear and nose normal, oropharynx normal Neck: trachea midline, no thyromegaly Respiratory: no respiratory distress (intubated) Auscultation: + diminished lung sounds (bases) and + rhonchi Cardiovascular: RRR, no murmur, no edema Gastrointestinal (Abdomen): normal bowel sounds, soft, nontender, no hepatosplenomegaly Musculoskeletal: no cyanosis or clubbing, extremities motor strength 5/5 Skin: no rashes, warm and dry Neurologic: no focal motor deficits and + not awake (sedated) Lymphatic: no cervical or axillary lymphadenopathy Results & Data ([facility]) Vital Signs (Past 12 Hours) Vital Signs Temp Pulse Resp BP Pulse Ox 08/29/19 08:27 10 L 08/29/19 08:00 70 08/29/19 07:27 71 14 97 08/29/19 05:33 14 08/29/19 05:05 82 20 95 08/29/19 04:10 37.3 C 69 92/67 L 94 08/29/19 03:55 75 95/68 L 93 08/29/19 03:40 74 89/66 L 94 08/29/19 03:25 88 108/75 98 08/29/19 03:10 75 114/52 L 100 08/29/19 02:55 85 106/66 97 08/29/19 02:40 92 H 105/75 98 08/29/19 02:25 72 107/71 98 08/29/19 02:10 37.1 C 77 92/68 L 95 08/29/19 01:55 74 93/62 L 94 08/29/19 01:40 73 84/56 L 97 08/29/19 01:25 82 104/62 96 08/29/19 01:20 73 20 96 08/29/19 01:10 80 110/71 96 08/29/19 01:05 89 100/77 94 08/29/19 00:57 81 99/79 L 94 08/29/19 00:56 88 91/66 L 97 08/29/19 00:40 83 108/76 96 08/29/19 00:25 78 98/68 L 97 08/29/19 00:10 37.1 C 75 97/73 L 98 08/28/19 23:55 67 91/66 L 95 08/28/19 23:40 74 95/67 L 93 08/28/19 23:25 81 99/69 L 96 08/28/19 23:10 81 99/69 L 96 08/28/19 22:55 87 20 109/79 98 08/28/19 22:40 92 H 93/76 L 93 08/28/19 22:25 76 97/68 L 96 08/28/19 22:11 36.8 C 72 96/72 L 98 08/28/19 21:55 68 92/69 L 95 08/28/19 21:40 77 97/74 L 96 08/28/19 21:25 72 95/71 L 95 08/28/19 21:10 85 105/69 96 08/28/19 20:55 74 108/78 95 Laboratory Results Laboratory Results - last 24 hr 08/28/19 08/28/19 08/28/19 10:45 10:45 10:45 WBC 12.39 H RBC 4.29 L Hgb 12.0 L POC Hgb Hct 39.6 L POC Hct MCV 92.3 MCH 28.0 MCHC 30.3 L RDW Std Deviation 53.7 H RDW Coeff of Amandeep 16.1 H Plt Count 156 MPV 10.7 H Immature Gran % (Auto) 0.2 Neut % (Auto) 75.9 Lymph % (Auto) 16.1 [place] % (Auto) 6.2 Eos % (Auto) 1.5 Baso % (Auto) 0.1 Immature Gran # (Auto) 0.02 Neut # (Auto) 9.41 H Lymph # (Auto) 1.99 [place] # (Auto) 0.77 H Eos # (Auto) 0.19 Baso # (Auto) 0.01 PT 11.4 INR 1.1 Sample Site POC pH POC pCO2 POC pO2 POC HCO3 POC Total CO2 POC Base Excess ABG pH ABG pH (Temp Correct) ABG pCO2 ABG pCO2 (Temp Corrct ABG pO2 POC ABG pO2 at Pt Temp ABG HCO3 ABG O2 Saturation ABG Base Excess Justo Test Barometric Pressure Oxygen Given O2 Delivery Device POC O2 Rate Minute Ventilation Tidal Volume PEEP POC Sodium Sodium 141 POC Potassium Potassium 4.0 Chloride 108 H Carbon Dioxide 28 Anion Gap 4.0 BUN 14 Creatinine 0.79 Est Cr Clr Drug Dosing 101.3 Est GFR ( Amer) 105.4 Est GFR (Non-Af Amer) 91.0 BUN/Creatinine Ratio 18.1 Glucose 141 H POC Glucose Estimat Average Glucose Hemoglobin A1c Lactate Calcium 8.6 Phosphorus Magnesium 1.7 L Total Bilirubin 0.2 AST 49 H ALT 26 Alkaline Phosphatase 133 H Ammonia Total Creatine Kinase 28 L Troponin I 0.039 NT-Pro-B Natriuret Pep Total Protein 5.6 L Albumin 2.3 L Globulin 3.3 Albumin/Globulin Ratio 0.7 L Triglycerides Cholesterol LDL Cholesterol, Calc VLDL Cholesterol, Calc HDL Cholesterol Cholesterol/HDL Ratio Procalcitonin TSH 2.140 Urine Color Urine Appearance Urine pH Ur Specific [place] Urine Protein Urine Glucose (UA) Urine Ketones Urine Blood Urine Nitrite Urine Bilirubin Urine Urobilinogen Ur Leukocyte Esterase Urine WBC (Auto) Urine RBC (Auto) U Hyaline Cast (Auto) U Epithel Cells (Auto) Urine Bacteria (Auto) Ur Renal Epithelial Cell Amorphous Sediment Nasal Screen MRSA (PCR) Urine Opiates Screen U Codeine Confrm GC/MS Ur Morphine (GC/MS) Ur Hydrocodone (GC/MS) Ur Norhydrocodone Ur Noroxycodone Urine Oxycodone (GC/MS) U Oxymorphone GC/MS Ur Methadone, Qual Ur Hydromorphone (GC/MS) Urine Barbiturates Levetiracetam Ur Phencyclidine (PCP) U Amphetamin/Meth Scrn MDMA (Ecstasy) Screen U Benzodiazepines Scrn Ur Cocaine Metabolite U Marijuana (THC) Screen Drug Screen Comment Influenza Type A (PCR) Influenza Type B (PCR) 08/28/19 08/28/19 08/28/19 11:55 11:58 13:10 WBC RBC Hgb POC Hgb Hct POC Hct MCV MCH MCHC RDW Std Deviation RDW Coeff of Amandeep Plt Count MPV Immature Gran % (Auto) Neut % (Auto) Lymph % (Auto) [place] % (Auto) Eos % (Auto) Baso % (Auto) Immature Gran # (Auto) Neut # (Auto) Lymph # (Auto) [place] # (Auto) Eos # (Auto) Baso # (Auto) PT INR Sample Site POC pH POC pCO2 POC pO2 POC HCO3 POC Total CO2 POC Base Excess ABG pH 7.02 L* ABG pH (Temp Correct) ABG pCO2 100 H ABG pCO2 (Temp Corrct ABG pO2 99 H POC ABG pO2 at Pt Temp ABG HCO3 25 H ABG O2 Saturation 94.7 ABG Base Excess -8.0 Justo Test Pos Barometric Pressure 735.6 Oxygen Given 15 L O2 Delivery Device POC O2 Rate Minute Ventilation Tidal Volume PEEP POC Sodium Sodium POC Potassium Potassium Chloride Carbon Dioxide Anion Gap BUN Creatinine Est Cr Clr Drug Dosing Est GFR ( Amer) Est GFR (Non-Af Amer) BUN/Creatinine Ratio Glucose POC Glucose Estimat Average Glucose Hemoglobin A1c Lactate 5.8 H* Calcium Phosphorus Magnesium Total Bilirubin AST ALT Alkaline Phosphatase Ammonia Total Creatine Kinase Troponin I NT-Pro-B Natriuret Pep Total Protein Albumin Globulin Albumin/Globulin Ratio Triglycerides Cholesterol LDL Cholesterol, Calc VLDL Cholesterol, Calc HDL Cholesterol Cholesterol/HDL Ratio Procalcitonin TSH Urine Color Yellow Urine Appearance Cloudy A Urine pH 5.0 Ur Specific [place] > 1.045 H Urine Protein 2+ H Urine Glucose (UA) Negative Urine Ketones Negative Urine Blood 2+ H Urine Nitrite Negative Urine Bilirubin Negative Urine Urobilinogen Negative Ur Leukocyte Esterase Trace H Urine WBC (Auto) >30 H Urine RBC (Auto) 10-30 H U Hyaline Cast (Auto) 0 U Epithel Cells (Auto) >30 H Urine Bacteria (Auto) 1+ H Ur Renal Epithelial Cell Not Reportable Amorphous Sediment Present A Nasal Screen MRSA (PCR) Urine Opiates Screen U Codeine Confrm GC/MS Ur Morphine (GC/MS) Ur Hydrocodone (GC/MS) Ur Norhydrocodone Ur Noroxycodone Urine Oxycodone (GC/MS) U Oxymorphone GC/MS Ur Methadone, Qual Ur Hydromorphone (GC/MS) Urine Barbiturates Levetiracetam Ur Phencyclidine (PCP) U Amphetamin/Meth Scrn MDMA (Ecstasy) Screen U Benzodiazepines Scrn Ur Cocaine Metabolite U Marijuana (THC) Screen Drug Screen Comment Influenza Type A (PCR) Influenza Type B (PCR) 08/28/19 08/28/19 08/28/19 13:10 13:10 14:20 WBC RBC Hgb POC Hgb Hct POC Hct MCV MCH MCHC RDW Std Deviation RDW Coeff of Amandeep Plt Count MPV Immature Gran % (Auto) Neut % (Auto) Lymph % (Auto) [place] % (Auto) Eos % (Auto) Baso % (Auto) Immature Gran # (Auto) Neut # (Auto) Lymph # (Auto) [place] # (Auto) Eos # (Auto) Baso # (Auto) PT INR Sample Site POC pH POC pCO2 POC pO2 POC HCO3 POC Total CO2 POC Base Excess ABG pH ABG pH (Temp Correct) ABG pCO2 ABG pCO2 (Temp Corrct ABG pO2 POC ABG pO2 at Pt Temp ABG HCO3 ABG O2 Saturation ABG Base Excess Justo Test Barometric Pressure Oxygen Given O2 Delivery Device POC O2 Rate Minute Ventilation Tidal Volume PEEP POC Sodium Sodium POC Potassium Potassium Chloride Carbon Dioxide Anion Gap BUN Creatinine Est Cr Clr Drug Dosing Est GFR ( Amer) Est GFR (Non-Af Amer) BUN/Creatinine Ratio Glucose POC Glucose Estimat Average Glucose Hemoglobin A1c Lactate Calcium Phosphorus Magnesium Total Bilirubin AST ALT Alkaline Phosphatase Ammonia Total Creatine Kinase Troponin I NT-Pro-B Natriuret Pep Total Protein Albumin Globulin Albumin/Globulin Ratio Triglycerides Cholesterol LDL Cholesterol, Calc VLDL Cholesterol, Calc HDL Cholesterol Cholesterol/HDL Ratio Procalcitonin TSH Urine Color Urine Appearance Urine pH Ur Specific [place] Urine Protein Urine Glucose (UA) Urine Ketones Urine Blood Urine Nitrite Urine Bilirubin Urine Urobilinogen Ur Leukocyte Esterase Urine WBC (Auto) Urine RBC (Auto) U Hyaline Cast (Auto) U Epithel Cells (Auto) Urine Bacteria (Auto) Ur Renal Epithelial Cell Amorphous Sediment Nasal Screen MRSA (PCR) Negative Urine Opiates Screen Pos H U Codeine Confrm GC/MS Pending Ur Morphine (GC/MS) Pending Ur Hydrocodone (GC/MS) Pending Ur Norhydrocodone Pending Ur Noroxycodone Pending Urine Oxycodone (GC/MS) Pending U Oxymorphone GC/MS Pending Ur Methadone, Qual Neg Ur Hydromorphone (GC/MS) Pending Urine Barbiturates Neg Levetiracetam Ur Phencyclidine (PCP) Neg U Amphetamin/Meth Scrn Neg MDMA (Ecstasy) Screen Neg U Benzodiazepines Scrn Neg Ur Cocaine Metabolite Neg U Marijuana (THC) Screen Neg Drug Screen Comment Pending Influenza Type A (PCR) Influenza Type B (PCR) 08/28/19 08/28/19 08/28/19 14:23 15:33 15:34 WBC RBC Hgb POC Hgb Hct POC Hct MCV MCH MCHC RDW Std Deviation RDW Coeff of Amandeep Plt Count MPV Immature Gran % (Auto) Neut % (Auto) Lymph % (Auto) [place] % (Auto) Eos % (Auto) Baso % (Auto) Immature Gran # (Auto) Neut # (Auto) Lymph # (Auto) [place] # (Auto) Eos # (Auto) Baso # (Auto) PT INR Sample Site POC pH POC pCO2 POC pO2 POC HCO3 POC Total CO2 POC Base Excess ABG pH ABG pH (Temp Correct) ABG pCO2 ABG pCO2 (Temp Corrct ABG pO2 POC ABG pO2 at Pt Temp ABG HCO3 ABG O2 Saturation ABG Base Excess Justo Test Barometric Pressure Oxygen Given O2 Delivery Device POC O2 Rate Minute Ventilation Tidal Volume PEEP POC Sodium Sodium POC Potassium Potassium Chloride Carbon Dioxide Anion Gap BUN Creatinine Est Cr Clr Drug Dosing Est GFR ( Amer) Est GFR (Non-Af Amer) BUN/Creatinine Ratio Glucose POC Glucose Estimat Average Glucose Hemoglobin A1c Lactate 3.9 H* 2.5 H* Calcium Phosphorus Magnesium Total Bilirubin AST ALT Alkaline Phosphatase Ammonia Total Creatine Kinase Troponin I NT-Pro-B Natriuret Pep 29404 H Total Protein Albumin Globulin Albumin/Globulin Ratio Triglycerides Cholesterol LDL Cholesterol, Calc VLDL Cholesterol, Calc HDL Cholesterol Cholesterol/HDL Ratio Procalcitonin TSH 1.280 Urine Color Urine Appearance Urine pH Ur Specific [place] Urine Protein Urine Glucose (UA) Urine Ketones Urine Blood Urine Nitrite Urine Bilirubin Urine Urobilinogen Ur Leukocyte Esterase Urine WBC (Auto) Urine RBC (Auto) U Hyaline Cast (Auto) U Epithel Cells (Auto) Urine Bacteria (Auto) Ur Renal Epithelial Cell Amorphous Sediment Nasal Screen MRSA (PCR) Urine Opiates Screen U Codeine Confrm GC/MS Ur Morphine (GC/MS) Ur Hydrocodone (GC/MS) Ur Norhydrocodone Ur Noroxycodone Urine Oxycodone (GC/MS) U Oxymorphone GC/MS Ur Methadone, Qual Ur Hydromorphone (GC/MS) Urine Barbiturates Levetiracetam Ur Phencyclidine (PCP) U Amphetamin/Meth Scrn MDMA (Ecstasy) Screen U Benzodiazepines Scrn Ur Cocaine Metabolite U Marijuana (THC) Screen Drug Screen Comment Influenza Type A (PCR) Influenza Type B (PCR) 08/28/19 08/28/19 08/28/19 15:34 15:34 15:41 WBC RBC Hgb POC Hgb Hct POC Hct MCV MCH MCHC RDW Std Deviation RDW Coeff of Amandeep Plt Count MPV Immature Gran % (Auto) Neut % (Auto) Lymph % (Auto) [place] % (Auto) Eos % (Auto) Baso % (Auto) Immature Gran # (Auto) Neut # (Auto) Lymph # (Auto) [place] # (Auto) Eos # (Auto) Baso # (Auto) PT INR Sample Site POC pH POC pCO2 POC pO2 POC HCO3 POC Total CO2 POC Base Excess ABG pH ABG pH (Temp Correct) ABG pCO2 ABG pCO2 (Temp Corrct ABG pO2 POC ABG pO2 at Pt Temp ABG HCO3 ABG O2 Saturation ABG Base Excess Justo Test Barometric Pressure Oxygen Given O2 Delivery Device POC O2 Rate Minute Ventilation Tidal Volume PEEP POC Sodium Sodium POC Potassium Potassium Chloride Carbon Dioxide Anion Gap BUN Creatinine Est Cr Clr Drug Dosing Est GFR ( Amer) Est GFR (Non-Af Amer) BUN/Creatinine Ratio Glucose POC Glucose 139 H Estimat Average Glucose Hemoglobin A1c Lactate Calcium Phosphorus Magnesium Total Bilirubin AST ALT Alkaline Phosphatase Ammonia Total Creatine Kinase Troponin I NT-Pro-B Natriuret Pep Total Protein Albumin Globulin Albumin/Globulin Ratio Triglycerides Cholesterol LDL Cholesterol, Calc VLDL Cholesterol, Calc HDL Cholesterol Cholesterol/HDL Ratio Procalcitonin 0.23 TSH Urine Color Urine Appearance Urine pH Ur Specific [place] Urine Protein Urine Glucose (UA) Urine Ketones Urine Blood Urine Nitrite Urine Bilirubin Urine Urobilinogen Ur Leukocyte Esterase Urine WBC (Auto) Urine RBC (Auto) U Hyaline Cast (Auto) U Epithel Cells (Auto) Urine Bacteria (Auto) Ur Renal Epithelial Cell Amorphous Sediment Nasal Screen MRSA (PCR) Urine Opiates Screen U Codeine Confrm GC/MS Ur Morphine (GC/MS) Ur Hydrocodone (GC/MS) Ur Norhydrocodone Ur Noroxycodone Urine Oxycodone (GC/MS) U Oxymorphone GC/MS Ur Methadone, Qual Ur Hydromorphone (GC/MS) Urine Barbiturates Levetiracetam Pending Ur Phencyclidine (PCP) U Amphetamin/Meth Scrn MDMA (Ecstasy) Screen U Benzodiazepines Scrn Ur Cocaine Metabolite U Marijuana (THC) Screen Drug Screen Comment Influenza Type A (PCR) Influenza Type B (PCR) 08/28/19 08/28/19 08/28/19 16:45 17:23 18:39 WBC RBC Hgb POC Hgb 11.6 L Hct POC Hct 34 L MCV MCH MCHC RDW Std Deviation RDW Coeff of Amandeep Plt Count MPV Immature Gran % (Auto) Neut % (Auto) Lymph % (Auto) [place] % (Auto) Eos % (Auto) Baso % (Auto) Immature Gran # (Auto) Neut # (Auto) Lymph # (Auto) [place] # (Auto) Eos # (Auto) Baso # (Auto) PT INR Sample Site L Radial POC pH 7.44 POC pCO2 47 H POC pO2 230 H POC HCO3 32 H POC Total CO2 33 H POC Base Excess 8.0 H ABG pH ABG pH (Temp Correct) 7.436 ABG pCO2 ABG pCO2 (Temp Corrct 47 H ABG pO2 POC ABG pO2 at Pt Temp 230 ABG HCO3 ABG O2 Saturation ABG Base Excess Justo Test Pass Barometric Pressure Oxygen Given O2 Delivery Device Ventilator POC O2 Rate 20 Minute Ventilation 10.7 Tidal Volume 500 PEEP 8 POC Sodium 140 Sodium POC Potassium 4.1 Potassium Chloride Carbon Dioxide Anion Gap BUN Creatinine Est Cr Clr Drug Dosing Est GFR ( Amer) Est GFR (Non-Af Amer) BUN/Creatinine Ratio Glucose POC Glucose Estimat Average Glucose Hemoglobin A1c Lactate 2.7 H* Calcium Phosphorus Magnesium Total Bilirubin AST ALT Alkaline Phosphatase Ammonia Total Creatine Kinase Troponin I NT-Pro-B Natriuret Pep Total Protein Albumin Globulin Albumin/Globulin Ratio Triglycerides Cholesterol LDL Cholesterol, Calc VLDL Cholesterol, Calc HDL Cholesterol Cholesterol/HDL Ratio Procalcitonin TSH Urine Color Urine Appearance Urine pH Ur Specific [place] Urine Protein Urine Glucose (UA) Urine Ketones Urine Blood Urine Nitrite Urine Bilirubin Urine Urobilinogen Ur Leukocyte Esterase Urine WBC (Auto) Urine RBC (Auto) U Hyaline Cast (Auto) U Epithel Cells (Auto) Urine Bacteria (Auto) Ur Renal Epithelial Cell Amorphous Sediment Nasal Screen MRSA (PCR) Urine Opiates Screen U Codeine Confrm GC/MS Ur Morphine (GC/MS) Ur Hydrocodone (GC/MS) Ur Norhydrocodone Ur Noroxycodone Urine Oxycodone (GC/MS) U Oxymorphone GC/MS Ur Methadone, Qual Ur Hydromorphone (GC/MS) Urine Barbiturates Levetiracetam Ur Phencyclidine (PCP) U Amphetamin/Meth Scrn MDMA (Ecstasy) Screen U Benzodiazepines Scrn Ur Cocaine Metabolite U Marijuana (THC) Screen Drug Screen Comment Influenza Type A (PCR) Neg for Influ A Influenza Type B (PCR) Neg for Influ B 08/28/19 08/29/19 08/29/19 20:43 00:40 01:11 WBC RBC Hgb POC Hgb Hct POC Hct MCV MCH MCHC RDW Std Deviation RDW Coeff of Amandeep Plt Count MPV Immature Gran % (Auto) Neut % (Auto) Lymph % (Auto) [place] % (Auto) Eos % (Auto) Baso % (Auto) Immature Gran # (Auto) Neut # (Auto) Lymph # (Auto) [place] # (Auto) Eos # (Auto) Baso # (Auto) PT INR Sample Site POC pH POC pCO2 POC pO2 POC HCO3 POC Total CO2 POC Base Excess ABG pH ABG pH (Temp Correct) ABG pCO2 ABG pCO2 (Temp Corrct ABG pO2 POC ABG pO2 at Pt Temp ABG HCO3 ABG O2 Saturation ABG Base Excess Justo Test Barometric Pressure Oxygen Given O2 Delivery Device POC O2 Rate Minute Ventilation Tidal Volume PEEP POC Sodium Sodium POC Potassium Potassium Chloride Carbon Dioxide Anion Gap BUN Creatinine Est Cr Clr Drug Dosing Est GFR ( Amer) Est GFR (Non-Af Amer) BUN/Creatinine Ratio Glucose POC Glucose 131 H Estimat Average Glucose Hemoglobin A1c Lactate 1.3 Calcium Phosphorus Magnesium Total Bilirubin AST ALT Alkaline Phosphatase Ammonia 11.3 Total Creatine Kinase Troponin I NT-Pro-B Natriuret Pep Total Protein Albumin Globulin Albumin/Globulin Ratio Triglycerides Cholesterol LDL Cholesterol, Calc VLDL Cholesterol, Calc HDL Cholesterol Cholesterol/HDL Ratio Procalcitonin TSH Urine Color Urine Appearance Urine pH Ur Specific [place] Urine Protein Urine Glucose (UA) Urine Ketones Urine Blood Urine Nitrite Urine Bilirubin Urine Urobilinogen Ur Leukocyte Esterase Urine WBC (Auto) Urine RBC (Auto) U Hyaline Cast (Auto) U Epithel Cells (Auto) Urine Bacteria (Auto) Ur Renal Epithelial Cell Amorphous Sediment Nasal Screen MRSA (PCR) Urine Opiates Screen U Codeine Confrm GC/MS Ur Morphine (GC/MS) Ur Hydrocodone (GC/MS) Ur Norhydrocodone Ur Noroxycodone Urine Oxycodone (GC/MS) U Oxymorphone GC/MS Ur Methadone, Qual Ur Hydromorphone (GC/MS) Urine Barbiturates Levetiracetam Ur Phencyclidine (PCP) U Amphetamin/Meth Scrn MDMA (Ecstasy) Screen U Benzodiazepines Scrn Ur Cocaine Metabolite U Marijuana (THC) Screen Drug Screen Comment Influenza Type A (PCR) Influenza Type B (PCR) 08/29/19 08/29/19 08/29/19 01:11 05:06 05:06 WBC 11.28 H RBC 3.89 L Hgb 10.8 L POC Hgb Hct 35.2 L POC Hct MCV 90.5 MCH 27.8 MCHC 30.7 L RDW Std Deviation 53.1 H RDW Coeff of Amandeep 16.3 H Plt Count 149 MPV 10.1 Immature Gran % (Auto) 0.2 Neut % (Auto) 83.2 Lymph % (Auto) 11.3 [place] % (Auto) 5.1 Eos % (Auto) 0.1 Baso % (Auto) 0.1 Immature Gran # (Auto) 0.02 Neut # (Auto) 9.38 H Lymph # (Auto) 1.28 [place] # (Auto) 0.58 Eos # (Auto) 0.01 Baso # (Auto) 0.01 PT INR Sample Site POC pH POC pCO2 POC pO2 POC HCO3 POC Total CO2 POC Base Excess ABG pH 7.53 H* ABG pH (Temp Correct) ABG pCO2 35 ABG pCO2 (Temp Corrct ABG pO2 80 POC ABG pO2 at Pt Temp ABG HCO3 28 H ABG O2 Saturation 96.9 H ABG Base Excess 5.3 H Justo Test Pos Barometric Pressure Oxygen Given 50% O2 Delivery Device POC O2 Rate Minute Ventilation Tidal Volume PEEP POC Sodium Sodium 143 POC Potassium Potassium 3.7 Chloride 106 Carbon Dioxide 33 H Anion Gap 4.0 BUN 16 Creatinine 0.85 Est Cr Clr Drug Dosing 89.7 Est GFR ( Amer) 102.3 Est GFR (Non-Af Amer) 88.3 BUN/Creatinine Ratio 18.9 Glucose 114 H POC Glucose Estimat Average Glucose Hemoglobin A1c Lactate Calcium 8.6 Phosphorus 3.7 Magnesium 1.9 Total Bilirubin 0.5 AST 41 H ALT 60 Alkaline Phosphatase 163 H Ammonia Total Creatine Kinase Troponin I NT-Pro-B Natriuret Pep Total Protein 5.1 L Albumin 2.1 L Globulin 3.0 Albumin/Globulin Ratio 0.7 L Triglycerides 131 Cholesterol 165 LDL Cholesterol, Calc 76 VLDL Cholesterol, Calc 26 HDL Cholesterol 63 Cholesterol/HDL Ratio 3 Procalcitonin TSH Urine Color Urine Appearance Urine pH Ur Specific [place] Urine Protein Urine Glucose (UA) Urine Ketones Urine Blood Urine Nitrite Urine Bilirubin Urine Urobilinogen Ur Leukocyte Esterase Urine WBC (Auto) Urine RBC (Auto) U Hyaline Cast (Auto) U Epithel Cells (Auto) Urine Bacteria (Auto) Ur Renal Epithelial Cell Amorphous Sediment Nasal Screen MRSA (PCR) Urine Opiates Screen U Codeine Confrm GC/MS Ur Morphine (GC/MS) Ur Hydrocodone (GC/MS) Ur Norhydrocodone Ur Noroxycodone Urine Oxycodone (GC/MS) U Oxymorphone GC/MS Ur Methadone, Qual Ur Hydromorphone (GC/MS) Urine Barbiturates Levetiracetam Ur Phencyclidine (PCP) U Amphetamin/Meth Scrn MDMA (Ecstasy) Screen U Benzodiazepines Scrn Ur Cocaine Metabolite U Marijuana (THC) Screen Drug Screen Comment Influenza Type A (PCR) Influenza Type B (PCR) 08/29/19 08/29/19 05:06 05:31 WBC RBC Hgb POC Hgb 10.5 L Hct POC Hct 31 L MCV MCH MCHC RDW Std Deviation RDW Coeff of Amandeep Plt Count MPV Immature Gran % (Auto) Neut % (Auto) Lymph % (Auto) [place] % (Auto) Eos % (Auto) Baso % (Auto) Immature Gran # (Auto) Neut # (Auto) Lymph # (Auto) [place] # (Auto) Eos # (Auto) Baso # (Auto) PT INR Sample Site R Radial POC pH 7.58 H* POC pCO2 33 L POC pO2 72 L POC HCO3 31 H POC Total CO2 32 H POC Base Excess 10.0 H ABG pH ABG pH (Temp Correct) 7.581 H* ABG pCO2 ABG pCO2 (Temp Corrct 34 L ABG pO2 POC ABG pO2 at Pt Temp 72 ABG HCO3 ABG O2 Saturation ABG Base Excess Justo Test Pass Barometric Pressure Oxygen Given O2 Delivery Device Ventilator POC O2 Rate 20 Minute Ventilation 9.5 Tidal Volume 450 PEEP 5 POC Sodium 138 Sodium POC Potassium 3.5 Potassium Chloride Carbon Dioxide Anion Gap BUN Creatinine Est Cr Clr Drug Dosing Est GFR ( Amer) Est GFR (Non-Af Amer) BUN/Creatinine Ratio Glucose POC Glucose Estimat Average Glucose 111 Hemoglobin A1c 5.5 Lactate Calcium Phosphorus Magnesium Total Bilirubin AST ALT Alkaline Phosphatase Ammonia Total Creatine Kinase Troponin I NT-Pro-B Natriuret Pep Total Protein Albumin Globulin Albumin/Globulin Ratio Triglycerides Cholesterol LDL Cholesterol, Calc VLDL Cholesterol, Calc HDL Cholesterol Cholesterol/HDL Ratio Procalcitonin TSH Urine Color Urine Appearance Urine pH Ur Specific [place] Urine Protein Urine Glucose (UA) Urine Ketones Urine Blood Urine Nitrite Urine Bilirubin Urine Urobilinogen Ur Leukocyte Esterase Urine WBC (Auto) Urine RBC (Auto) U Hyaline Cast (Auto) U Epithel Cells (Auto) Urine Bacteria (Auto) Ur Renal Epithelial Cell Amorphous Sediment Nasal Screen MRSA (PCR) Urine Opiates Screen U Codeine Confrm GC/MS Ur Morphine (GC/MS) Ur Hydrocodone (GC/MS) Ur Norhydrocodone Ur Noroxycodone Urine Oxycodone (GC/MS) U Oxymorphone GC/MS Ur Methadone, Qual Ur Hydromorphone (GC/MS) Urine Barbiturates Levetiracetam Ur Phencyclidine (PCP) U Amphetamin/Meth Scrn MDMA (Ecstasy) Screen U Benzodiazepines Scrn Ur Cocaine Metabolite U Marijuana (THC) Screen Drug Screen Comment Influenza Type A (PCR) Influenza Type B (PCR) Medications Administered Current Inpatient Medications Dextrose (Dextrose 50%) 25 - 50 ml IV UD PRN; Protocol PRN Reason: Hypoglycemia Protocol Stop: 09/27/19 15:12 Diclofenac Sodium (Voltaren 1% Top) 1 gm EXT QID PRN PRN Reason: Pain Stop: 09/27/19 15:12 Docusate Calcium (Surfak) 240 mg PO BID JENNIFFER Stop: 09/27/19 20:59 Last Admin: 08/29/19 08:47 Dose: Not Given Documented by: Glucagon (Glucagen) 1 mg SQ UD PRN; Protocol PRN Reason: Hypoglycemia Protocol Stop: 09/27/19 15:12 Glucose (Dex4 Glucose) 4 - 8 tabs PO UD PRN; Protocol PRN Reason: Hypoglycemia Protocol Stop: 09/27/19 15:12 Glucose (Glucose 40%) 15 - 30 gm PO UD PRN; Protocol PRN Reason: Hypoglycemia Protocol Stop: 09/27/19 15:12 Heparin Sodium (Porcine) (Heparin Sod 100 Unit/Ml Flush) 5 ml FLUSH PRN PRN PRN Reason: Flush Stop: 09/28/19 00:29 Cefepime HCl 2,000 mg/ Syringe 20 mls @ 5.5 mls/min IV Q8H JENNIFFER; Protocol Stop: 09/04/19 19:59 Last Admin: 08/29/19 03:31 Dose: 5.5 mls/min Documented by: Doxycycline Hyclate 100 mg/ (Dextrose) 110 mls @ 50 mls/hr IV BID [facility] Stop: 09/04/19 20:59 Last Admin: 08/29/19 08:44 Dose: 50 mls/hr Documented by: Levetiracetam 500 mg/ Sodium (Chloride) 105 mls @ 420 mls/hr IV BID [facility] Stop: 09/27/19 20:59 Last Admin: 08/29/19 08:45 Dose: 420 mls/hr Documented by: Vancomycin HCl 1,750 mg/ (Sodium Chloride) 535 mls @ 200 mls/hr IV Q12H [facility]; Protocol Stop: 09/05/19 03:59 Last Infusion: 08/29/19 07:10 Dose: Infused Documented by: Furosemide 40 mg/ Syringe 4 mls @ 4 mls/min IV [id number] JENNIFFER Stop: 09/27/19 16:59 Last Admin: 08/29/19 08:44 Dose: 4 mls/min Documented by: Propofol (Diprivan) 1,000 mg in 100 mls @ 2.703 mls/hr IV .Q24H JENNIFFER; Protocol Stop: 09/01/19 01:14 Last Titration: 08/29/19 08:30 Dose: 5 mcg/kg/min, 2.7 mls/hr Documented by: Magnesium Oxide (Mag-Ox) 400 mg PO QAM [facility] Stop: 09/28/19 08:59 Last Admin: 08/29/19 08:45 Dose: 400 mg Documented by: Miscellaneous (Carbohydrates For Hypoglycemia) 15 - 30 gm PO UD PRN PRN Reason: Hypoglycemia Protocol Stop: 09/27/19 15:12 Miscellaneous Information (Consult) 1 ea N/A UD PRN PRN Reason: Consult Stop: 09/27/19 15:12 Morphine Sulfate (Roxanol) 5 mg PO Q4 PRN PRN Reason: pain Stop: 09/11/19 15:12 Pantoprazole Sodium (Protonix) [facility] Stop: 09/28/19 08:59 Last Admin: 08/29/19 08:48 Dose: Not Given Documented by: Prednisone (Prednisone) [facility] [place]; Protocol Stop: 09/28/19 08:59 Last Admin: 08/29/19 08:45 Dose: 20 mg Documented by: Tamsulosin HCl (Flomax) 0.4 mg PO [facility] Stop: 09/27/19 20:59 Last Admin: 08/28/19 21:33 Dose: 0.4 mg Documented by: PG Care Time/CCT Total # of Minutes Spent Total Time Spent with Patient: Total time spent is greater than 50% in coordination of care (as documented) at patient's floor/unit and/or counseling patient: Coding Level of Care Code 39864 Subs Hosp Care Lv 3 Diagnoses Acute respiratory failure J96.01; J96.02 Respiratory failure complication: hypoxia and hypercapnia Respiratory acidosis E87.2 Pneumonia J18.9 Laterality: unspecified laterality Lung location: unspecified part of lung Pneumonia type: due to unspecified organism Status epilepticus G40.901 Lactic acidosis E87.2 Pulmonary embolus, right I26.99 Altered mental status R41.82 Altered mental status type: unspecified ICD (implantable cardioverter-defibrillator) in place Z95.810 HLD (hyperlipidemia) E78.2 Hyperlipidemia type: mixed hyperlipidemia HTN (hypertension) I10 Hypertension type: essential hypertension DM type 2 (diabetes mellitus, type 2) E11.9; Z79.4 Diabetes mellitus complication status: without complication Diabetes mellitus [facility] insulin use: with [facility] use Afib I48.2 Atrial fibrillation type: chronic Acute exacerbation of CHF (congestive heart failure) I50.9 Naye-rectal abscess K61.1 (1) Acute respiratory failure Respiratory failure complication: hypoxia and hypercapnia Qualified Code(s): J96.01 - Acute respiratory failure with hypoxia; J96.02 - Acute respiratory failure with hypercapnia (2) DM type 2 (diabetes mellitus, type 2) Diabetes mellitus complication status: without complication Diabetes mellitus [facility] insulin use: with [facility] use Qualified Code(s): E11.9 - Type 2 diabetes mellitus without complications; 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 (3) Afib Atrial fibrillation type: chronic Qualified Code(s): I48.2 - Chronic atrial fibrillation (4) HLD (hyperlipidemia) Hyperlipidemia type: mixed hyperlipidemia Qualified Code(s): E78.2 - Mixed hyperlipidemia (5) Altered mental status Altered mental status type: unspecified Qualified Code(s): R41.82 - Altered mental status, unspecified (6) HTN (hypertension) Hypertension type: essential hypertension Qualified Code(s): I10 - Essential (primary) hypertension (7) Pneumonia Laterality: unspecified laterality Lung location: unspecified part of lung Pneumonia type: due to unspecified organism Qualified Code(s): J18.9 - Pneumonia, unspecified organism
[2019-08-29] MEDS ORDERED: APIXABAN 5 MG TABLET PO SCH (09:00)
--- NOTE | 2019-08-29 09:23 | Neurology Consultation ---
Date of Consultation August 29, 2019 Assessment & Plan (1) Acute encephalopathy: (2) Status epilepticus: (3) Basilar artery stenosis: (4) CVA (cerebral vascular accident): Patient has the onset of acute encephalopathy probably improving some this morning compared to yesterday. Some seizure activity was noted. However, an EEG showed a significant generalized slowing without focal abnormalities or potentially epileptogenic discharges. CT scan of the head showed no new lesions and CT angiography of the head neck revealed the carotid plaque and basilar stenosis as before. He was on no antiplatelet medication prior to admission. Patient was loaded with Keppra 1 g and is now on 500 mg twice daily. Patient had the onset of right pontine and left parietal strokes in July 2018 in the setting of atrial fibrillation and some vascular stenoses. Anticoagulation was attempted but he had GI bleeding in the rectal carcinoma was discovered. He is post repeat radiation therapy and chemotherapy for the rectal carcinoma and there is no indication for surgery. He is followed by Oncology. Currently his neurologic examination is mostly nonfocal although he withdraws the right side greater than the left. I cannot entirely exclude a new stroke. Patient has a 60% stenosis of the mid basilar artery. Recommendations: 1. Patient is going for CT scans of the chest abdomen and pelvis to look for metastases regarding his rectal cancer. 2. Consider MRI of the brain if family is willing to consent for turning off his ICD for the MRI. 3. Continue levetiracetam 500 mg twice daily. He did well on this dose. 4. Consider antiplatelet medication such as clopidogrel 75 mg daily to prevent stroke, especially in lieu of the basilar artery stenosis. 5. Because of his ongoing atrial fibrillation he should be on an anticoagulant. However, because of his history of rectal carcinoma and rectal bleeding he was not on an anticoagulant. I will defer to Oncology for this. 6. Increase activity as able. Hopefully he can be extubated following his CT scans later this morning. 7. His current care status remains a question. He was on hospice care since May but now is on full treatment/resuscitation. Overall, I spent a total of 110 minutes with this case including review of records, review of CT films, direct evaluation the patient at bedside, and discussing the case with the patient and RN at bedside, as well as doctors Lane and Nino, regarding differential diagnosis and treatment options. History of Present Illness Reason for Consultation: Patient is a 69-year-old, I was asked to see the request of Dr. Miller, neurologic consultation regarding altered mental status/unresponsive state, seizures, and other issues Requesting Physician: Dr. Miller Attending Physician: Popeye Sherman DO History of Present Illness Patient has a longstanding history of cardiac issues with cardiomyopathy, congestive heart failure and aortic valve replacement. He has a history of type 2 diabetes, hypertension, and dyslipidemia. There is an ICD defibrillator implanted because of a history of episodes of V-tach. Patient has a history of acute left parietal lobe acute strokes with petechial hemorrhage as well as a right pontine stroke back in July of 2018. He presented with decreased speech, right-sided weakness, and unresponsiveness. He had generalized tonic-clonic seizure and was given Keppra 500 mg twice daily.. At that time CT angiography of the head and neck showed carotid plaque and mild mid basilar stenosis. He was put on aspirin. He was also noted to be in atrial fibrillation was initiated on Eliquis. Glucose during this hospitalization was over 500 and hemoglobin A1c was 17. EEG was largely unremarkable. August of 2018 he had GI bleeding and rectal carcinoma discovered. Eliquis was discontinued. Rectal carcinoma was advanced involve the anus. It was felt to be non resectable surgically. He was given focused external radiation in October of 2018 and chemotherapy with FOLFOX and avastin. Patient saw Neurology as an outpatient in October of 2018 and then most recently in February of 2019. He was doing very well off of an anticonvulsant. In April of 2019 the patient was found unresponsive and having seizure a ctivity. He saw Dr. Dailey in the hospital and an EEG showed moderate generalized slowing. He could not get an MRI of the brain because of the implanted defibrillator (and the family's decision not to turn off ICD for a possible MRI test) but a CT scan of the head was unremarkable. He was restarted on 500 mg twice daily levetiracetam and was discharged on this dose. Apparently, there is information the patient was put on hospice in May of 2019 and did not go for follow-up with oncology or radiation oncology. For some reason his dose was lowered to 500 mg levetiracetam once daily. There are no medical reports from the time of his discharge May 24, 2019 until his arrival at the emergency room August 28, 2019. He was found with decreased responsiveness. PSG by EMS with 70 and was given putting. This raised to 94. Patient arrived to the emergency room August 27 at 9:57 a.m. with a temperature of 37.3, pulse rate 124 and irregular, respiratory rate 12 and shallow, blood pressure 148/94, and O2 saturation 75%. He was not oxygenating well with nasal cannula but with a non-rebreather his O2 saturations were between 90 and 100. On exam he had some right eye gaze with rightward nystagmus. There were no other focal deficits and he withdrew to painful stimuli. He was not responding normally. Because of his poor breathing he was intubated. There was some concern of seizure activity and an EEG was obtained early this morning and read by Dr. Dailey as moderate slowing. Today the patient is intubated and somewhat agitated. He is on low-dose propofol 7.5 micrograms/kilogram per minute. When we initiated the exam he was lowered to 5 micrograms/kilogram per minute. CT scan of the head showed no acute changes. CT angiography of the head and neck revealed a 60% stenosis in the mid basilar artery with plaque less than 50% stenosis in the internal carotid arteries bilaterally. There was a fusiform dilation of the ascending aortic arch (4.8 x 4.6) Allergies Allergy/AdvReac Type Severity Reaction Status Date / Time No Known Allergies Allergy Verified 08/28/19 10:26 Home Medications Home Medications Medication Instructions Recorded Confirmed Type omeprazole 20 mg PO QAM 09/07/18 08/28/19 History tamsulosin [Flomax] 0.4 mg PO HS 09/07/18 08/28/19 History diclofenac sodium [Voltaren] 1 gm TOPICAL QID PRN 04/01/19 08/28/19 History prednisone 20 mg PO QAM 04/01/19 08/28/19 History docusate sodium [Stool Softener] 500 mg PO BID 05/14/19 08/28/19 History apixaban [Eliquis] 5 mg PO QAM 08/28/19 08/28/19 History fentanyl 1 patch TRANSDERMAL Q72H 08/28/19 08/28/19 History levetiracetam [Keppra] 500 mg PO QAM 08/28/19 08/28/19 History magnesium oxide 400 mg PO QAM 08/28/19 08/28/19 History morphine concentrate 5 mg PO Q4 PRN 08/28/19 08/28/19 History Patient History Medical History AAA (abdominal aortic aneurysm) NEW FINDING Anemia Aortic stenosis Atrial fibrillation BPH (benign prostatic hyperplasia) Cancer COLON CANCER (NEW DX) RADIATION JUST COMPLETED Chronic systolic (congestive) heart failure Colon cancer Congestive heart failure CVA (cerebral vascular accident) 08/11/18 DM type 2 (diabetes mellitus, type 2) GERD (gastroesophageal reflux disease) HLD (hyperlipidemia) HTN (hypertension) Kidney disease (Chronic) Nonischemic cardiomyopathy Osteoarthritis Seizure "SMALL SEIZURE AT TIME OF CVA 07/2018" Sleep apnea Sleep apnea (Chronic) Surgical History H/O aortic valve replacement (Chronic) 2010 AT [facility] H/O knee surgery RT/LEFT History of cardiac cath 2010 History of colonoscopy History of tooth extraction Port-A-Cath in place (Chronic) Family History Brother Family history of diabetes mellitus Mother Colon cancer Father Coronary heart disease Hypertension Sister Hypertension Grandmother Diabetes Social History Preferred Language: Mosotho Communication Ability: Unable Line Inspector Required: No Beliefs That Will Affect Care: Moravian Moravian Beliefs: rastafarian marital status: Current Living Situation: Family Current Living Situation Comment: brother,, sister Feels Safe at Home: Yes Smoking Status: Never smoker Tobacco Type: cigarettes ; Age Quit Using Tobacco: 48 ; Cigarettes Per Day: 5 ; Number of Years Since Quit: 20 ; Second Hand Exposure: No ; Hx Alcohol Use: No Hx Substance Use: No Review of Systems Review of Systems: Unobtainable due to cognitive status and Unobtainable due to endotracheal tube Patient is intubated and somewhat confused. He certainly cannot answer questions about review of systems and is not nodding or shaking his head to questions either. Physical Exam Physical Exam: Patient is awake and when his name is called he will briefly fix and make eye contact for a couple of seconds and then randomly look away. I was not convinced that he was able to follow any one-step commands accurately or consistently. Blood pressure was 84/64 and pulse was between 78 and 82 in atrial fibrillation. O2 saturation was 98%. He was afebrile. This examination neurologically was on 5 micrograms/kilogram per minute propofol. Patient with spontaneously open his eyes and look around occasionally fixing on an object. He had spontaneous movement bilaterally in the arms and legs but was moving his right arm more than his left arm. Eyes open but he has some resistance to this with eye rolling up to fight the eye opening. Pupils are 4 mm bilaterally reactive to light. Discs are difficult to visualize but seem sharp bilaterally. Eyes are front and there was no dysconjugate gaze with horizontal or vertical movement of the head. Neck was supple. He had weak positive corneal responses bilaterally. He grimaces to pain has a positive gag and cough to suctioning. Tone is decreased in all 4 limbs (but he is on propofol). Reflexes are 1/4 in the quadriceps and absent in the Achilles. Arm reflexes are absent bilaterally. He will withdrawal the right arm and leg to deep pain quicker than he will the left arm and leg. Toes are neutral to withdrawal to plantar stimulation bilaterally. He has no abnormal involuntary movements noted. Results & Data Vital Signs (Past 12 Hours) Vital Signs Temp Pulse Resp BP Pulse Ox 08/29/19 08:27 10 L 08/29/19 08:00 70 08/29/19 07:27 71 14 97 08/29/19 05:33 14 08/29/19 05:05 82 20 95 08/29/19 04:10 37.3 C 69 92/67 L 94 08/29/19 03:55 75 95/68 L 93 08/29/19 03:40 74 89/66 L 94 08/29/19 03:25 88 108/75 98 0220 03:10 75 114/52 L 100 08/29/19 02:55 85 106/66 97 08/29/19 02:40 92 H 105/75 98 08/29/19 02:25 72 107/71 98 08/29/19 02:10 37.1 C 77 92/68 L 95 0220 01:55 74 93/62 L 94 20 01:40 73 84/56 L 97 08/29/19 01:25 82 104/62 96 20 01:20 73 20 96 08/29/19 01:10 80 110/71 96 08/29/19 01:05 89 100/77 94 08/29/19 00:57 81 99/79 L 94 08/29/19 00:56 88 91/66 L 97 08/29/19 00:40 83 108/76 96 08/29/19 00:25 78 98/68 L 97 08/29/19 00:10 37.1 C 75 97/73 L 98 08/28/19 23:55 67 91/66 L 95 08/28/19 23:40 74 95/67 L 93 08/28/19 23:25 81 99/69 L 96 08/28/19 23:10 81 99/69 L 96 08/28/19 22:55 87 20 109/79 98 08/28/19 22:40 92 H 93/76 L 93 08/28/19 22:25 76 97/68 L 96 08/28/19 22:11 36.8 C 72 96/72 L 98 08/28/19 21:55 68 92/69 L 95 08/28/19 21:40 77 97/74 L 96 08/28/19 21:25 72 95/71 L 95 08/28/19 21:10 85 105/69 96 08/28/19 20:55 74 108/78 95 PG Care Time/CCT Total # of Minutes Spent Total Time Spent with Patient: Total time spent is greater than 50% in coordination of care (as documented) at patient's floor/unit and/or counseling patient: Coding Level of Care Code 25229 Initial Inpt Care Lvl 3 Diagnoses Acute encephalopathy G93.40 Status epilepticus G40.901 Basilar artery stenosis I65.1 CVA (cerebral vascular accident) I63.412 CVA mechanism: embolism Precerebral and cerebral artery: middle cerebral artery Laterality of affected vessel: left Time Spent (min) 110 Comment Add [id number] to the 00732 (1) CVA (cerebral vascular accident) CVA mechanism: embolism Precerebral and cerebral artery: middle cerebral artery Laterality of affected vessel: left Qualified Code(s): I63.412 - Cerebral infarction due to embolism of left middle cerebral artery
[2019-08-29 09:49] LABS: iSTAT Arterial Blood Gas pCO2 61 mmHg (35-46); iSTAT Arterial Blood Gas pH 7.32 (7.35-7.45); iSTAT Arterial Blood Gas pO2 75 mmHg (80-95); iSTAT Hematocrit 35 % (42-52); iSTAT Hemoglobin 11.9 g/dl (14.0-18.0); iSTAT Potassium 4.2 mmol/L (3.3-5.0); iSTAT Sodium 142 mmol/L (135-144)
[2019-08-29 09:50] LABS: iSTAT Arterial Blood Gas HCO3 32 meg/L (19-24); iSTAT Carbon Dioxide 33 mmol/L (24-31); iSTAT Sample Type Arterial
[2019-08-29] MEDS ORDERED: OPTIRAY 320 125ml IV PRN (10:26)
--- NOTE | 2019-08-29 10:30 | Electrocardiogram Report ---
Test Reason : Blood Pressure : / mmHG Vent. Rate : 117 BPM Atrial Rate : 117 BPM P-R Int : 000 ms QRS Dur : 130 ms QT Int : 334 ms P-R-T Axes : 000 200 130 degrees QTc Int : 465 ms Atrial fibrillation with rapid ventricular response with premature ventricular or aberrantly conducte d complexes Non-specific intra-ventricular conduction block Abnormal ECG When compared with ECG of 22-MAY-2019 16:19, T wave inversion no longer evident in Lateral leads Confirmed by Ronald Watts ([id number]) on 08/29/2019 10:29:50 AM Referred By: REFERRED SELF Confirmed By:Ronald Watts
--- NOTE | 2019-08-29 10:50 | CT Scan Report ---
CT angio chest PE protocol CLINICAL HISTORY: 69 years-old Male presenting with shortness of breath, metastatic rectal carcinoma. TECHNIQUE: Multidetector CT angiography of the chest was performed after administration of intravenou s contrast. 3-D volumetric and/or maximum intensity projection (MIP) images were subsequently reconst ructed for review. IV contrast: 118 mL of Optiray 320. One or more dose lowering techniques were used consistent with the principles of ALARA (as low as reasonably achievable), including automatic expos ure control, mA or kV adjustment to individual patient size, and/or use of iterative reconstruction. COMPARISON: 04/01/2019. CT DOSE (mGy.cm): The estimated cumulative dose is 1801.40. FINDINGS: Rivet Bucker topogram: Median sternotomy wires, endotracheal tube, nasogastric tube, prosthetic aortic valve , left subclavian Mediport, right subclavian implanted cardiac defibrillator noted. Respiratory motion artifact moderately to severely degrades image quality limiting diagnostic sensiti vity the exam. Pulmonary vasculature: The study is suboptimal for the assessment of the pulmonary vascular tree secondary to respiratory mo tion artifact. Allowing for limited image quality, no central filling defect to suggest pulmonary emb olus. Main pulmonary artery enlarged measuring 4.8 cm in maximal diameter, slightly worsened from kay or. No flattening of the interventricular septum. No intracardiac filling defect. Reflux of contrast into the IVC and hepatic veins. This likely indicates elevated right heart pressure. Remaining chest: Soft tissues: Endotracheal tube terminates in the midthoracic trachea. Nasogastric tube terminates in the gastric body. Left subclavian Mediport terminates in the and SVC. Right subclavian implanted car diac defibrillator with single lead to the right ventricular apex. Gynecomastia noted. Mild body wall edema. No gross lymphadenopathy allowing for image quality. Atherosclerosis of the aorta. Prosthetic aortic valve. Moderate to severe three-vessel coronary artery calcification. Multichamber enlargemen t of the heart. Small to moderate bilateral pleural effusions. No pericardial effusion. Upper abdomen normal. Lungs and airways: No pneumothorax. Debris noted in the lower trachea and left mainstem bronchus, pos sibly secretions. Airways in the left lung are occluded. Bronchial wall thickening in the right lower lobe noted. Limited evaluation of the lung parenchyma given respiratory motion artifact. Extensive a telectasis of the left lung, which is in part due to the presence of the small to moderate left pleur al effusion. Mild nodular dependent infiltrates in the right lower lobe as well as passive atelectasi s in the right lower lobe. Musculoskeletal: Chronic appearance of the right anterior seventh rib fracture. There is also partial ly visualized chronic right anterior eighth rib fracture. Redemonstration of the sclerotic lesion at the inferior tip of the right scapula consistent with a bone island. Degenerative changes of the spin e. IMPRESSION: Respiratory motion artifact moderately to severely degrades image quality limiting diagnostic sensiti vity the exam. 1. Allowing for the extremely limited image quality, no evidence of pulmonary embolus. 2. Evidence of secretions in the lower trachea and left mainstem bronchus with occlusion of the left lung airways. This results in extensive left lung atelectasis, which is also worsened by the presenc e of the small to moderate left pleural effusion. 3. Small to moderate right pleural effusion. 4. Basilar predominant infiltrates in the right lower lobe concerning for aspiration superimposed pa ssive atelectasis. 5. cardiomegaly with pulmonary artery hypertension and elevated right heart pressure. 6. Appropriately positioned lines and tubes. 7. Chronic right anterior seventh and eighth rib fractures. ACT 112: Negative or not required by law. Electronically signed by: Ramos Seaman M.D. 08/29/2019 10:49 AM
[2019-08-29] MEDS: LANSOPRAZOLE 30 MG SOLTAB NG SCH (11:14)
--- NOTE | 2019-08-29 11:23 | Critical Care Progress Note ---
Date of Service August 29, 2019 Assessment & Plan (1) Acute encephalopathy: -- VDRF Likely secondary to status epilepticus with possible aspiration pneumonia Continue with antibiotics vancomycin and cefepime with atypical coverage given by doxycycline Influenza negative, nasal Patient likely had seizure leading to aspiration pneumonia. Continue with ventilatory support Keep RASS -1 Daily sedation holidays and SBT's Chlorhexidine mouthwash --History of seizures Patient was supposed to be on Keppra 500 mg twice daily but was taking only 500 mg once daily This could be 1 of the reason that the patient had seizure to begin with Neurology has been consulted who read the EEG saying that there is no seizure- like activity appreciated on the EEG. They recommend continuing with 100 mg of Keppra twice daily Appreciate the recommendation. --Abscess/soft tissue ulceration of the left inferomedial gluteal crease 3.8 x 1.8 cm Will change cefepime to Zosyn to cover for anaerobes Follow-up septic work-up. --A. fib Patient has history of bleeding lower GI Used to be on apixaban. DC'd because of history of multiple falls as well Patient will not be on any more anticoagulation for his A. 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 Zuniga who recommends CT chest abdomen pelvis to see if there is any more metastasis. Patient was initially on hospice as of May 2019 as patient was very immobile and bedbound. --left lower lobe collapse Based on CT finding. There could be possible aspiration pneumonia with mucus impaction. Plan will be to do bronchoscopy and suction if there is any mucous plug. When that the patient got apixaban last night no plan to do any biopsy. Risk and benefits of the procedure were explained to the family. Family understands and are agreeable to bronchoscopy. All the questions were answered in depth and the best way possible. --Bilateral pleural effusion Likely secondary to systolic CHF with ejection fraction 20% Strict in and out Maintain negative balance --DVT prophylaxis IPCs Plan: Bronchoscopy Change cefepime to Zosyn given that the patient has abscess in the left perirectal area. We will get surgery involved as well. Discussed plan of care with family at bedside. Patient has a reason for seizures given that he was taking half the dose recommended by neurologist for his seizures. CTA of the head was negative for any mass. No emergent need for MRI. This was relayed to the family. (2) Altered mental status: (3) Status epilepticus: (4) Acute respiratory failure: Subjective Patient seen and examined at bedside. No acute distress. Patient is on propofol 7.5. Patient opens eyes to voice but does not follow command. Afebrile. Patient was not breathing over the vent at the time of examination. Review of Systems Review of Systems: Unobtainable due to mental health condition and Unobtainable due to endotracheal tube Physical Exam Physical Exam: Constitutional: No acute distress HEENT: PERRLA, positive ETT Respiratory system: Decreased air entry bilaterally, no wheeze, no rhonchi, mild crackles bilateral lower lobes CVS: S1-S2 positive, no murmurs or gallops Abdomen: Soft, nontender, nondistended, positive bowel sounds x4 Extremities: +2 pulses bilaterally radialis/ dorsalis pedis, no cyanosis, no edema Neuro: Patient opens his eyes but not does not follow commands, moving bilateral upper extremities and lower extremities Psych: Unable to assess G/U: Positive Wise Right-sided AICD Skin: no rashes, warm and dry Lymphatic: no cervical or axillary lymphadenopathy Results & Data ([facility]) Vital Signs (Past 12 Hours) Vital Signs Temp Pulse Pulse Resp BP BP BP 08/29/19 10:45 79 9 L 08/29/19 09:11 88 18 93/52 L 93/52 L 08/29/19 09:00 85 08/29/19 08:42 79 93/52 L 08/29/19 08:27 10 L 08/29/19 08:16 70 84/64 L 08/29/19 08:12 62 97/42 L 08/29/19 08:00 74 08/29/19 07:42 36.9 C 64 86/62 L 08/29/19 07:27 71 14 08/29/19 07:00 61 08/29/19 06:50 65 08/29/19 05:33 14 08/29/19 05:05 82 20 08/29/19 04:10 37.3 C 69 92/67 L 08/29/19 03:55 75 95/68 L 08/29/19 03:40 74 89/66 L 08/29/19 03:25 88 108/75 08/29/19 03:10 75 114/52 L 08/29/19 02:55 85 106/66 08/29/19 02:40 92 H 105/75 08/29/19 02:25 72 107/71 08/29/19 02:10 37.1 C 77 92/68 L 08/29/19 01:55 74 93/62 L 08/29/19 01:40 73 84/56 L 08/29/19 01:25 82 104/62 08/29/19 01:20 73 20 08/29/19 01:10 80 110/71 08/29/19 01:05 89 100/77 08/29/19 00:57 81 99/79 L 08/29/19 00:56 88 91/66 L 08/29/19 00:40 83 108/76 08/29/19 00:25 78 98/68 L 08/29/19 00:10 37.1 C 75 97/73 L 08/28/19 23:55 67 91/66 L 08/28/19 23:40 74 95/67 L 08/28/19 23:25 81 99/69 L Pulse Ox 08/29/19 10:45 95 08/29/19 09:11 95 08/29/19 09:00 95 08/29/19 08:42 96 08/29/19 08:27 08/29/19 08:16 08/29/19 08:12 93 08/29/19 08:00 95 08/29/19 07:42 93 08/29/19 07:27 97 08/29/19 07:00 97 08/29/19 06:50 95 08/29/19 05:33 08/29/19 05:05 95 08/29/19 04:10 94 08/29/19 03:55 93 08/29/19 03:40 94 08/29/19 03:25 98 08/29/19 03:10 100 08/29/19 02:55 97 08/29/19 02:40 98 08/29/19 02:25 98 08/29/19 02:10 95 08/29/19 01:55 94 08/29/19 01:40 97 08/29/19 01:25 96 03/02/20 01:20 96 08/29/19 01:10 96 08/29/19 01:05 94 08/29/19 00:57 94 08/29/19 00:56 97 08/29/19 00:40 96 08/29/19 00:25 97 08/29/19 00:10 98 08/28/19 23:55 95 08/28/19 23:40 93 08/28/19 23:25 96 08/29/19 05:06 08/29/19 05:06 Coding Level of Care Code Critical Care 1st 30-74 mins Diagnoses Acute encephalopathy G93.40 Altered mental status R41.82 Status epilepticus G40.901 Acute respiratory failure J96.01; J96.02 Respiratory failure complication: hypoxia and hypercapnia Time Spent (min) 35 (1) Acute respiratory failure Respiratory failure complication: hypoxia and hypercapnia Qualified Code(s): J96.01 - Acute respiratory failure with hypoxia; J96.02 - Acute respiratory failure with hypercapnia
--- NOTE | 2019-08-29 11:29 | CT Scan Report ---
ABDOMEN AND PELVIS CT WITH IV CONTRAST CT DOSE: 1801.40 mGy.cm HISTORY: Subsequent treatment strategy. Follow-up study in a patient with acute shortness of breath a nd metastatic rectal cancer. Metastatic Rectal CA TECHNIQUE: Multiaxial CT images of the abdomen and pelvis were performed following the IV administrat ion of 118 cc of Optiray 320, A dose lowering technique was utilized adhering to the principles of A SANJEEV. COMPARISON STUDY: CTA of the chest of same day, CT abdomen and pelvis 05/17/2019. FINDINGS: Limited exam secondary to upper extremity positioning and motion artifact. Small pleural effusions wi th bibasilar left greater than right consolidation. Cardiomegaly with aortic valvular prosthesis. Par tially imaged pacer leads are noted along with prior median sternotomy. Dilation of the aortic root m easuring up to 4.4 mm. There is no pneumatosis or pneumoperitoneum. Spleen is enlarged measuring up to 15 cm in craniocaudal dimension. Moderate generalized pancreatic a trophy. There is unchanged thickening of the adrenal glands suggestive of hyperplasia. Hyperplasia ve rsus soft tissue nodule of the right adrenal gland, 1.4 cm is unchanged. Mildly contracted gallbladde r. No cholelithiasis or biliary ductal dilation identified. Unremarkable liver. Patency of the hepati c and portal veins. 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 Mild scarring of the superior pole left kidney wit hin the area of previously described renal infarct. Cortical thinning of the bilateral kidneys. Mild cortical scarring of the superior pole right kidney. No renal or ureteral calculi or obstructive urop athy identified. Wall thickening of the urinary bladder with partial distention and perivesicular str anding. Air within the urinary bladder is likely secondary to instrumentation. A Wise catheter withi n the urinary bladder appears appropriately positioned. Prostamegaly. Small fat-filled left inguinal hernia. Mixed plaque of the abdominal aorta without aneurysm. Unremarkable IVC. Pathologically enlarg ed lymph node of the mid pelvic mesentery redemonstrated, 2.3 x 1.4 cm on image 347 of series 6, prev iously 2.0 x 1.4 cm. Prominent right pelvic sidewall lymph node on image 386 of series 6 measures 8 m m. There are a few scattered nonenlarged perirectal lymph nodes also present which are new from prior . Circumferential wall thickening of the anus and rectum is noted with perirectal stranding. A thick- walled peripherally enhancing fluid collection is noted within the inferomedial left gluteal crease d istribution within the area of previously described soft tissue ulcer. The inflammation and soft tiss ue thickening within this region has increased in size from comparison. This likely extends to the sk in surface. Enteric tube is noted with distal tip terminating in the proximal gastric body. Mild nonspecific wall thickening of the distal stomach. No bowel obstruction. Mild fecal retention. Multiple decompressed loops of large bowel. Visualized appendix is noninflamed. Moderate diffuse body wall edema with mild diffuse mesenteric edema. Demineralized appearance to the bones with degenerative changes of the spin e, pelvis and hips. Chronic lower anterior right-sided rib fractures. There are no suspicious lytic o r blastic osseous lesions identified. Scattered sclerotic foci of the lower lumbar spine and pelvis r edemonstrated suggestive of probable bone island. IMPRESSION: 1. Circumferential wall thickening of the rectum and anus, likely correlating with the patient's repo rtedly known neoplasm. A single enlarged pelvic mesenteric lymph node is redemonstrated along with ne w prominent right pelvic sidewall and several prominent nonenlarged perirectal lymph nodes suggestive of lymphatic metastasis. 2. Within the area of previously described soft tissue ulceration of the left inferomedial gluteal cr ease, there is progressive inflammation, now with an air and fluid-filled collection measuring up to 3.8 x 1.8 cm suggestive of abscess which appears to be contiguous with the adjacent cutaneous surface and may also communicate with the anus. Decubitus ulcer versus ulceration related to neoplasm are th e differential considerations. Correlate with clinical exam findings. 3. No bowel obstruction. 4. Fluid overload manifested by pleural effusions with body wall and mesenteric edema. 5. Left greater than right bibasilar consolidation. 6. Additional findings as above. ACT 112: Positive. There are findings on this exam that require communication between the performing entity and the patient following Patient Test Result Information Act ([place] Act 112) guidelines. The above report was generated using voice recognition software. It may contain grammatical, syntax o r spelling errors. Dictated: 08/29/2019 11:01 AM Transcribed: 08/29/2019 11:26 AM Odalis [id number] [email or web address] Electronically signed by: Edgar Davis M.D. 08/29/2019 11:28 AM
[2019-08-29] MEDS ORDERED: PROPOFOL BOLUS FROM BAG IV ONE (12:15)
[2019-08-29] MEDS ORDERED: PIPERACILL/TAZOBAC CONSULT ACTIVE PRN (12:17)
[2019-08-29] MEDS ORDERED: PIPERACILLIN/TAZOBACTAM 3.375 GM in DEXTROSE 5% 100 ML IV STA (12:26)
--- NOTE | 2019-08-29 12:26 | Procedure Note ---
Procedure Note: Bronchoscopy Procedure PREOPERATIVE DIAGNOSIS: Left lower lobe collapse POSTOPERATIVE DIAGNOSIS: Left lower lobe collapse PROCEDURE PERFORMED: Flexible fiberoptic bronchoscopy with BAL COMPLICATIONS: None. INDICATION: Left lower lobe collapse and intubated patient PROCEDURE: After obtaining an informed consent from the family plan for bronchoscopy was made. Subsequent to this, the patient was medicated with a total of 100 MCG of fentanyl and 50 mg of propofol The bronchoscope was passed through the ET tube. The trachea appeared normal.The bronchoscope was then advanced through the bassam, which was sharp. Yellowish mucous plug was appreciated at left main bronchus. The scope was then advanced into the right main stem and each segment, subsegement in the right upper lobe, right middle lobe and right lower lobe were visualized. There was minimal amount of secretion noted. There were no other findings including evidence of mass, anatomic distortions, or hemorrhage. The bronchoscope was subsequently withdrawn and advanced into the left mainstem. There was copious amount of thick grayish-yellow secretions appreciated starting from left main. This were suctioned out and airway cleared. Again, each segment and subsegment was well visualized. No specific masses or other lesions were identified throughout the tracheobronchial tree on the left. The bronchoscope was then wedged in the left lower and bronchoalveolar lavage samples were obtained. 120 ml of saline was instilled and 60 ml of fluid was aspirated back.The bronchoscope was withdrawn and the area was suctioned clear. The bronchoscope was then withdrawn to the mainstem. The area was suctioned clear. The bronchoscope was then withdrawn. The patient tolerated the procedure well without evidence of desaturation or complications. Bronchoalveolar lavage samples were sent for cell count, Gram stain and bacterial culture, AFB culture and smear, fungal culture and smear and cytology. Recommendations: Follow-up chest x-ray postprocedure. Follow-up cultures.
--- NOTE | 2019-08-29 12:47 | XRay Report ---
SINGLE VIEW CHEST CLINICAL HISTORY: Status post bronchoscopy. FINDINGS: An AP, portable, upright chest radiograph is compared to chest x-ray and chest CT dated 08/27 and correlated with chest CT performed the same day 08/29/2019. The examination is significantly degraded by portable technique and patient rotation. A left subclavian central venous infusion port i s unchanged from previous, as is a cardiac pacemaker. Endotracheal and enteric tubes are unchanged in position. The patient is status post midline sternotomy and cardiac valve surgery. The heart is enla rged and there is atherosclerotic calcification of the thoracic aorta. There is pulmonary vascular co ngestion. Airspace consolidation is seen at the left lung base and there are small pleural effusions. Scattered calcified granulomas are observed. An indeterminant line projecting over the left upper balta ng likely resents a skinfold. The skeletal structures are osteopenic. The bony thorax appears intact. IMPRESSION: 1. Cardiomegaly and cardiac pacemaker with pulmonary vascular congestion. 2. Left larger right pleural effusions with bibasilar consolidation. 3. An indeterminant line projecting over the left apex likely represents a skinfold. Pneumothorax is considered less likely. Consider repeat examination with improved positioning for reassessment. Electronically signed by: Denzel Quarles M.D. 08/29/2019 12:45 PM
--- NOTE | 2019-08-29 13:14 | Surgery Consultation ---
Date of Consultation August 29, 2019 Assessment & Plan (1) Naye-rectal abscess: pt is a 69 year-old male who was admitted to ICU with past medical history of A. fib on apixaban, seizure disorder on Keppra, diabetes mellitus type 2 hypertension, hyperlipidemia, PE, intermittent rectal bleeding, history of CVA, history of nonischemic cardiomyopathy, aortic stenosis, metastatic rectal carcinoma, aortic valve replacement, implanted ICD defibrillator, chronic systolic congestive heart failure, sleep apnea, who was brought by family to the emergency room with decreased responsiveness started this morning. IMP: perirectal abscess, Acute respiratory failure, base on the abscess is drainage itself, no need for surgical intervention now, D/W pt's family members, the prognosis may be poor, they understood, continue IV antibiotic, repeat labs in am, will F/U History of Present Illness Attending Physician: Popeye Sherman, History of Present Illness Chief Complaint: Seizure-like activity Primary Care Provider: Erika Negro The patient is a 69 years old male with past medical history of A. fib on apixaban, seizure disorder on Keppra, diabetes mellitus type 2 hypertension, hyperlipidemia, PE, intermittent rectal bleeding, history of CVA, history of nonischemic cardiomyopathy, aortic stenosis, metastatic rectal carcinoma, aortic valve replacement, implanted ICD defibrillator, chronic systolic congestive heart failure, sleep apnea, who was brought by family to the emergency room with decreased responsiveness started this morning. Patient is enrolled in hospice care since May 2020. The name of the agency is [facility]. Family has power of traffic law attorney if condition is terminal that he would not like to be resuscitated. ER physician had thorough discussion with the family as well as myself and family expressed their interest of patient being on the ventilator if necessary and intubated. Patient is Restorationism and in case that he would need blood transfusion due to very evangelical believes he would not permit so as this was confirmed by the family. The family reports that patient had blood sugar of 70 in the morning and he was given pudding by family which raise his sugar to 94. They reported that they checked his BSG and it was 112. The family reports that patient was doing well on hospice and the hospice company decided to come 3 times a day instead of 5 times a day recently and that he was very active and interactive. They also report that patient is normally bedridden but able to eat on his own and carry on a conversation. Patient was not able to respond to questions about review of systems. Of the note recently patient Keppra was decreased to 500 mg nightly and patient was prior to that 1g nightly. Patient has known seizures for a long time since his CVA, but did not have any for many years up until today. Family reports that patient whole body was twitching and his oxygenation drops when he seizes. Patient is normally on 2 L of oxygen at home. The case was discussed this morning with Dr. Jacobson and family over the phone and family had opportunity to ask questions . In sum and substance pt rectal cancer is terminal and inoperable.He supposed to received final course FOLFOX chemotherapy in May. Dr. Jacobson recommended noninvasive procedures and the most intubation and ventilator. He also deferred other decisions to the family. He recommended to do CTA of the chest and abdomen and pelvis CT. Labs are reviewed:WBC is 12.39, hemoglobin 12, hematocrit 39.6, platelets 156, PT 11.4, INR 1.1, pH 7.18, PCO2 79, PO2 417, sodium 141, potassium 4, chloride 108, carbon dioxide 28, anion gap 4, BUN 14, creatinine 0.79, GFR 91, lactate 5.8, magnesium 1.7, total bilirubin, TSH 2.14. Urine pending. Keppra level pending, head /neck CT angiogram shows mixed plaque of the bilateral carotid bulbs, left greater than right resulting less than 50% luminal narrowing bilaterally. Calcified plaque of the basilar artery causing 60% luminal narrowing. No aneurysm, dissection or proximal branch occlusion. Moderate luminal narrowing at the origin of the bilateral posterior cerebral arteries. Fusiform dilatation of the ascending thoracic aorta 4.8 x 4.6 cm. Chest x-ray shows cardiac silhouette is enlarged. Paramedian sternotomy with prosthetic aortic valve. S/p placement of the endotracheal tube distal tip 3.9 cm superior to the bassam. Unchanged left subclavian [id number] catheter and right subclavian pacer/AICD. Resolution of the previously noted lateral left midlung opacity. Right hemidiaphragmatic elevation is noted with persistent pulmonary vascular congestion and interstitial coarsening. Mildly improved aeration of the left lung. Pleural effusion with bibasilar opacities redemonstrated. Degenerative changes of the shoulder and spine. Patient had general seizure like activity while in emergency room. His oxygenation was dropping below 80% during seizure. He was on 15 L nonrebreather and later on on BiPAP and ABG demonstrated a pH of 7.02 and with CO2 retention of 79. Decision was made with permission of family to intubate patient and treat him for possible pneumonia versus acute systolic CHF exacerbation. Family is also aware that patient will probably have difficult time to be extubated later on and will need terminal wean. All possibilities were discussed with the family thoroughly and the day decided to go ahead with intubation. I ( Alton Dee MD ) got a call for consult perirectal abscess, pt is still on the vent, I got a H/P, from family members and nurse. I reviewed pt's labs. and CT scan, Allergies Allergy/AdvReac Type Severity Reaction Status Date / Time No Known Allergies Allergy Verified 08/28/19 10:26 Home Medications Home Medications Medication Instructions Recorded Confirmed Type omeprazole 20 mg PO QAM 09/07/18 08/28/19 History tamsulosin [Flomax] 0.4 mg PO HS 09/07/18 08/28/19 History diclofenac sodium [Voltaren] 1 gm TOPICAL QID PRN 04/01/19 08/28/19 History prednisone 20 mg PO QAM 04/01/19 08/28/19 History docusate sodium [Stool Softener] 500 mg PO BID 05/14/19 08/28/19 History apixaban [Eliquis] 5 mg PO QAM 08/28/19 08/28/19 History fentanyl 1 patch TRANSDERMAL Q72H 08/28/19 08/28/19 History levetiracetam [Keppra] 500 mg PO QAM 08/28/19 08/28/19 History magnesium oxide 400 mg PO QAM 08/28/19 08/28/19 History morphine concentrate 5 mg PO Q4 PRN 08/28/19 08/28/19 History Past Med/Surg History Medical History AAA (abdominal aortic aneurysm) NEW FINDING Anemia Aortic stenosis Atrial fibrillation BPH (benign prostatic hyperplasia) Cancer COLON CANCER (NEW DX) RADIATION JUST COMPLETED Chronic systolic (congestive) heart failure Colon cancer Congestive heart failure CVA (cerebral vascular accident) 08/11/18 DM type 2 (diabetes mellitus, type 2) GERD (gastroesophageal reflux disease) HLD (hyperlipidemia) HTN (hypertension) Kidney disease (Chronic) Nonischemic cardiomyopathy Osteoarthritis Seizure "SMALL SEIZURE AT TIME OF CVA 07/2018" Sleep apnea Sleep apnea (Chronic) Surgical History H/O aortic valve replacement (Chronic) 2010 AT [facility] H/O knee surgery RT/LEFT History of cardiac cath 2010 History of colonoscopy History of tooth extraction Port-A-Cath in place (Chronic) Family History Brother Family history of diabetes mellitus Mother Colon cancer Father Coronary heart disease Hypertension Sister Hypertension Grandmother Diabetes Social History Preferred Language: Yakut Communication Ability: Unable Retail Banker Required: No Beliefs That Will Affect Care: Voodoo Voodoo Beliefs: bahai marital status: Current Living Situation: Family Current Living Situation Comment: brother,, sister Other Information That Helps Us Care for You: No Feels Safe at Home: Yes Safety Concerns: Feels Safe At This Time Smoking Status: Never smoker Tobacco Type: cigarettes ; Age Quit Using Tobacco: 48 ; Cigarettes Per Day: 5 ; Number of Years Since Quit: 20 ; Second Hand Exposure: No ; Hx Alcohol Use: No Hx Substance Use: No Review of Systems Review of Systems: All systems reviewed & are unremarkable except as noted in HPI & below Allergies Allergy/AdvReac Type Severity Reaction Status Date / Time No Known Allergies Allergy Verified 08/28/19 10:26 Home Medications Home Medications Medication Instructions Recorded Confirmed Type omeprazole 20 mg PO QAM 09/07/18 08/28/19 History tamsulosin [Flomax] 0.4 mg PO HS 09/07/18 08/28/19 History diclofenac sodium [Voltaren] 1 gm TOPICAL QID PRN 04/01/19 08/28/19 History prednisone 20 mg PO QAM 04/01/19 08/28/19 History docusate sodium [Stool Softener] 500 mg PO BID 05/14/19 08/28/19 History apixaban [Eliquis] 5 mg PO QAM 08/28/19 08/28/19 History fentanyl 1 patch TRANSDERMAL Q72H 08/28/19 08/28/19 History levetiracetam [Keppra] 500 mg PO QAM 08/28/19 08/28/19 History magnesium oxide 400 mg PO QAM 08/28/19 08/28/19 History morphine concentrate 5 mg PO Q4 PRN 08/28/19 08/28/19 History Patient History Medical History AAA (abdominal aortic aneurysm) NEW FINDING Anemia Aortic stenosis Atrial fibrillation BPH (benign prostatic hyperplasia) Cancer COLON CANCER (NEW DX) RADIATION JUST COMPLETED Chronic systolic (congestive) heart failure Colon cancer Congestive heart failure CVA (cerebral vascular accident) 08/11/18 DM type 2 (diabetes mellitus, type 2) GERD (gastroesophageal reflux disease) HLD (hyperlipidemia) HTN (hypertension) Kidney disease (Chronic) Nonischemic cardiomyopathy Osteoarthritis Seizure "SMALL SEIZURE AT TIME OF CVA 07/2018" Sleep apnea Sleep apnea (Chronic) Surgical History H/O aortic valve replacement (Chronic) 2010 AT [facility] H/O knee surgery RT/LEFT History of cardiac cath 2010 History of colonoscopy History of tooth extraction Port-A-Cath in place (Chronic) Family History Brother Family history of diabetes mellitus Mother Colon cancer Father Coronary heart disease Hypertension Sister Hypertension Grandmother Diabetes Social History Preferred Language: Yakut Communication Ability: Unable Retail Banker Required: No Beliefs That Will Affect Care: Voodoo Voodoo Beliefs: bahai marital status: Current Living Situation: Family Current Living Situation Comment: brother,, sister Feels Safe at Home: Yes Smoking Status: Never smoker Tobacco Type: cigarettes ; Age Quit Using Tobacco: 48 ; Cigarettes Per Day: 5 ; Number of Years Since Quit: 20 ; Second Hand Exposure: No ; Hx Alcohol Use: No Hx Substance Use: No Physical Exam Constitutional: pt is on vent Neck: trachea midline, no thyromegaly Respiratory: on vent Cardiovascular: RRR, no murmur, no edema Heart Sounds: normal S1 and normal S2 Gastrointestinal (Abdomen): soft, no distend during rectal exam, some pus came out from rectal area on left side, most likely the abscess is drainage by itself, the wound culture sent, large perirectal open wound on left side, daily open wound is connect to left perirectal abscess, no redness, no bulging on naye-rectal area, Neurologic: on vent Psychiatric: on vent Results & Data Vital Signs (Past 12 Hours) Vital Signs Temp Pulse Pulse Resp BP BP BP 08/29/19 12:15 14 08/29/19 12:03 90 89/70 L 08/29/19 11:57 94 H 105/88 08/29/19 11:52 95 H 107/89 08/29/19 11:42 82 107/89 08/29/19 10:45 79 9 L 08/29/19 09:11 88 18 93/52 L 93/52 L 08/29/19 09:00 85 08/29/19 08:42 79 93/52 L 08/29/19 08:27 10 L 08/29/19 08:16 70 84/64 L 08/29/19 08:12 62 97/42 L 08/29/19 08:00 74 08/29/19 07:42 36.9 C 64 86/62 L 08/29/19 07:27 71 14 08/29/19 07:00 61 08/29/19 06:50 65 08/29/19 05:33 14 08/29/19 05:05 82 20 08/29/19 04:10 37.3 C 69 92/67 L 08/29/19 03:55 75 95/68 L 08/29/19 03:40 74 89/66 L 08/29/19 03:25 88 108/75 08/29/19 03:10 75 114/52 L 08/29/19 02:55 85 106/66 08/29/19 02:40 92 H 105/75 08/29/19 02:25 72 107/71 08/29/19 02:10 37.1 C 77 92/68 L 08/29/19 01:55 74 93/62 L 08/29/19 01:40 73 84/56 L 08/29/19 01:25 82 104/62 08/29/19 01:20 73 20 Pulse Ox 08/29/19 12:15 08/29/19 12:03 97 08/29/19 11:57 98 08/29/19 11:52 96 08/29/19 11:42 94 08/29/19 10:45 95 08/29/19 09:11 95 08/29/19 09:00 95 08/29/19 08:42 96 08/29/19 08:27 08/29/19 08:16 08/29/19 08:12 93 08/29/19 08:00 95 08/29/19 07:42 93 08/29/19 07:27 97 08/29/19 07:00 97 08/29/19 06:50 95 08/29/19 05:33 08/29/19 05:05 95 08/29/19 04:10 94 08/29/19 03:55 93 08/29/19 03:40 94 08/29/19 03:25 98 08/29/19 03:10 100 08/29/19 02:55 97 08/29/19 02:40 98 08/29/19 02:25 98 08/29/19 02:10 95 08/29/19 01:55 94 08/29/19 01:40 97 08/29/19 01:25 96 08/29/19 01:20 96 Laboratory Results Abnormal lab results 08/28/19 08/28/19 08/28/19 Range/Units 13:10 13:10 13:32 WBC (4.8-10.8) K/uL RBC (4.7-6.1) M/uL Hgb (14.0-18.0) g/dL POC Hgb 11.9 L (14.0-18.0) g/dl Hct (42-52) % POC Hct 35 L (42-52) % MCHC (32-36) g/dL RDW Std Deviation (36.4-46.3) fL RDW Coeff of Amandeep (11.5-14.5) % Neut # (Auto) (1.4-6.5) K/uL POC pH 7.32 L (7.35-7.45) POC pCO2 61 H (35-46) mmHg POC pO2 75 L (80-95) mmHg POC HCO3 32 H (19-24) lucia/L POC Total CO2 33 H (24-31) mmol/L POC Base Excess 6.0 H (-9-1.8) lucia/L ABG pH (7.35-7.45) ABG pH (Temp Correct) (7.35-7.45) ABG pCO2 (Temp Corrct (35-46) mmHg ABG HCO3 (19-24) mmol/L ABG O2 Saturation (90-95) % ABG Base Excess (-9-1.8) mEq/L Carbon Dioxide (21-32) mmol/L Glucose (70-99) mg/dl POC Glucose (70-99) mg/dl Lactate (0.4-2.0) mmol/L AST (15-37) U/L Alkaline Phosphatase (45-117) U/L NT-Pro-B Natriuret Pep (0-900) pg/ml Total Protein (6.4-8.2) gm/dl Albumin (3.4-5.0) gm/dl Albumin/Globulin Ratio (0.9-2) Urine Appearance Cloudy A (Clear) Ur Specific [place] > 1.045 H (1.000-1.030) Urine Protein 2+ H (Negative) Urine Blood 2+ H (Negative) Ur Leukocyte Esterase Trace H (Negative) Urine WBC (Auto) >30 H (0-5) /hpf Urine RBC (Auto) 10-30 H (0-4) /hpf U Epithel Cells (Auto) >30 H (0-5) /lpf Urine Bacteria (Auto) 1+ H (Negative) Amorphous Sediment Present A (None Prsent) Urine Opiates Screen Pos H (Neg) 08/28/19 08/28/19 08/28/19 Range/Units 14:23 15:33 15:34 WBC (4.8-10.8) K/uL RBC (4.7-6.1) M/uL Hgb (14.0-18.0) g/dL POC Hgb (14.0-18.0) g/dl Hct (42-52) % POC Hct (42-52) % MCHC (32-36) g/dL RDW Std Deviation (36.4-46.3) fL RDW Coeff of Amandeep (11.5-14.5) % Neut # (Auto) (1.4-6.5) K/uL POC pH (7.35-7.45) POC pCO2 (35-46) mmHg POC pO2 (80-95) mmHg POC HCO3 (19-24) lucia/L POC Total CO2 (24-31) mmol/L POC Base Excess (-9-1.8) lucia/L ABG pH (7.35-7.45) ABG pH (Temp Correct) (7.35-7.45) ABG pCO2 (Temp Corrct (35-46) mmHg ABG HCO3 (19-24) mmol/L ABG O2 Saturation (90-95) % ABG Base Excess (-9-1.8) mEq/L Carbon Dioxide (21-32) mmol/L Glucose (70-99) mg/dl POC Glucose (70-99) mg/dl Lactate 3.9 H* 2.5 H* (0.4-2.0) mmol/L AST (15-37) U/L Alkaline Phosphatase (45-117) U/L NT-Pro-B Natriuret Pep 10782 H (0-900) pg/ml Total Protein (6.4-8.2) gm/dl Albumin (3.4-5.0) gm/dl Albumin/Globulin Ratio (0.9-2) Urine Appearance (Clear) Ur Specific [place] (1.000-1.030) Urine Protein (Negative) Urine Blood (Negative) Ur Leukocyte Esterase (Negative) Urine WBC (Auto) (0-5) /hpf Urine RBC (Auto) (0-4) /hpf U Epithel Cells (Auto) (0-5) /lpf Urine Bacteria (Auto) (Negative) Amorphous Sediment (None Prsent) Urine Opiates Screen (Neg) 08/28/19 08/28/19 08/28/19 Range/Units 15:41 17:23 18:39 WBC (4.8-10.8) K/uL RBC (4.7-6.1) M/uL Hgb (14.0-18.0) g/dL POC Hgb 11.6 L (14.0-18.0) g/dl Hct (42-52) % POC Hct 34 L (42-52) % MCHC (32-36) g/dL RDW Std Deviation (36.4-46.3) fL RDW Coeff of Amandeep (11.5-14.5) % Neut # (Auto) (1.4-6.5) K/uL POC pH (7.35-7.45) POC pCO2 47 H (35-46) mmHg POC pO2 230 H (80-95) mmHg POC HCO3 32 H (19-24) lucia/L POC Total CO2 33 H (24-31) mmol/L POC Base Excess 8.0 H (-9-1.8) lucia/L ABG pH (7.35-7.45) ABG pH (Temp Correct) (7.35-7.45) ABG pCO2 (Temp Corrct 47 H (35-46) mmHg ABG HCO3 (19-24) mmol/L ABG O2 Saturation (90-95) % ABG Base Excess (-9-1.8) mEq/L Carbon Dioxide (21-32) mmol/L Glucose (70-99) mg/dl POC Glucose 139 H (70-99) mg/dl Lactate 2.7 H* (0.4-2.0) mmol/L AST (15-37) U/L Alkaline Phosphatase (45-117) U/L NT-Pro-B Natriuret Pep (0-900) pg/ml Total Protein (6.4-8.2) gm/dl Albumin (3.4-5.0) gm/dl Albumin/Globulin Ratio (0.9-2) Urine Appearance (Clear) Ur Specific [place] (1.000-1.030) Urine Protein (Negative) Urine Blood (Negative) Ur Leukocyte Esterase (Negative) Urine WBC (Auto) (0-5) /hpf Urine RBC (Auto) (0-4) /hpf U Epithel Cells (Auto) (0-5) /lpf Urine Bacteria (Auto) (Negative) Amorphous Sediment (None Prsent) Urine Opiates Screen (Neg) 08/29/19 08/29/19 08/29/19 Range/Units 00:40 01:11 05:06 WBC 11.28 H (4.8-10.8) K/uL RBC 3.89 L (4.7-6.1) M/uL Hgb 10.8 L (14.0-18.0) g/dL POC Hgb (14.0-18.0) g/dl Hct 35.2 L (42-52) % POC Hct (42-52) % MCHC 30.7 L (32-36) g/dL RDW Std Deviation 53.1 H (36.4-46.3) fL RDW Coeff of Amandeep 16.3 H (11.5-14.5) % Neut # (Auto) 9.38 H (1.4-6.5) K/uL POC pH (7.35-7.45) POC pCO2 (35-46) mmHg POC pO2 (80-95) mmHg POC HCO3 (19-24) lucia/L POC Total CO2 (24-31) mmol/L POC Base Excess (-9-1.8) lucia/L ABG pH 7.53 H* (7.35-7.45) ABG pH (Temp Correct) (7.35-7.45) ABG pCO2 (Temp Corrct (35-46) mmHg ABG HCO3 28 H (19-24) mmol/L ABG O2 Saturation 96.9 H (90-95) % ABG Base Excess 5.3 H (-9-1.8) mEq/L Carbon Dioxide (21-32) mmol/L Glucose (70-99) mg/dl POC Glucose 131 H (70-99) mg/dl Lactate (0.4-2.0) mmol/L AST (15-37) U/L Alkaline Phosphatase (45-117) U/L NT-Pro-B Natriuret Pep (0-900) pg/ml Total Protein (6.4-8.2) gm/dl Albumin (3.4-5.0) gm/dl Albumin/Globulin Ratio (0.9-2) Urine Appearance (Clear) Ur Specific [place] (1.000-1.030) Urine Protein (Negative) Urine Blood (Negative) Ur Leukocyte Esterase (Negative) Urine WBC (Auto) (0-5) /hpf Urine RBC (Auto) (0-4) /hpf U Epithel Cells (Auto) (0-5) /lpf Urine Bacteria (Auto) (Negative) Amorphous Sediment (None Prsent) Urine Opiates Screen (Neg) 08/29/19 08/29/19 08/29/19 Range/Units 05:06 05:31 11:46 WBC (4.8-10.8) K/uL RBC (4.7-6.1) M/uL Hgb (14.0-18.0) g/dL POC Hgb 10.5 L (14.0-18.0) g/dl Hct (42-52) % POC Hct 31 L (42-52) % MCHC (32-36) g/dL RDW Std Deviation (36.4-46.3) fL RDW Coeff of Amandeep (11.5-14.5) % Neut # (Auto) (1.4-6.5) K/uL POC pH 7.58 H* (7.35-7.45) POC pCO2 33 L (35-46) mmHg POC pO2 72 L (80-95) mmHg POC HCO3 31 H (19-24) lucia/L POC Total CO2 32 H (24-31) mmol/L POC Base Excess 10.0 H (-9-1.8) lucia/L ABG pH (7.35-7.45) ABG pH (Temp Correct) 7.581 H* (7.35-7.45) ABG pCO2 (Temp Corrct 34 L (35-46) mmHg ABG HCO3 (19-24) mmol/L ABG O2 Saturation (90-95) % ABG Base Excess (-9-1.8) mEq/L Carbon Dioxide 33 H (21-32) mmol/L Glucose 114 H (70-99) mg/dl POC Glucose 110 H (70-99) mg/dl Lactate (0.4-2.0) mmol/L AST 41 H (15-37) U/L Alkaline Phosphatase 163 H (45-117) U/L NT-Pro-B Natriuret Pep (0-900) pg/ml Total Protein 5.1 L (6.4-8.2) gm/dl Albumin 2.1 L (3.4-5.0) gm/dl Albumin/Globulin Ratio 0.7 L (0.9-2) Urine Appearance (Clear) Ur Specific [place] (1.000-1.030) Urine Protein (Negative) Urine Blood (Negative) Ur Leukocyte Esterase (Negative) Urine WBC (Auto) (0-5) /hpf Urine RBC (Auto) (0-4) /hpf U Epithel Cells (Auto) (0-5) /lpf Urine Bacteria (Auto) (Negative) Amorphous Sediment (None Prsent) Urine Opiates Screen (Neg) Diagnostic Findings ABDOMEN AND PELVIS CT WITH IV CONTRAST CT DOSE: 1801.40 mGy.cm HISTORY: Subsequent treatment strategy. Follow-up study in a patient with acute shortness of breath and metastatic rectal cancer. Metastatic Rectal CA TECHNIQUE: Multiaxial CT images of the abdomen and pelvis were performed following the IV administration of 118 cc of Optiray 320, A dose lowering technique was utilized adhering to the principles of ALARA. COMPARISON STUDY: CTA of the chest of same day, CT abdomen and pelvis 05/17/2019. FINDINGS: Limited exam secondary to upper extremity positioning and motion artifact. Small pleural effusions with bibasilar left greater than right consolidation. Cardiomegaly with aortic valvular prosthesis. Partially imaged pacer leads are noted along with prior median sternotomy. Dilation of the aortic root measuring up to 4.4 mm. There is no pneumatosis or pneumoperitoneum. Spleen is enlarged measuring up to 15 cm in craniocaudal dimension. Moderate generalized pancreatic atrophy. There is unchanged thickening of the adrenal glands suggestive of hyperplasia. Hyperplasia versus soft tissue nodule of the right adrenal gland, 1.4 cm is unchanged. Mildly contracted gallbladder. No cholelithiasis or biliary ductal dilation identified. Unremarkable liver. Patency of the hepatic and portal veins. 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 Mild scarring of the superior pole left kidney within the area of previously described renal infarct. Cortical thinning of the bilateral kidneys. Mild cortical scarring of the superior pole right kidney. No renal or ureteral calculi or obstructive uropathy identified. Wall thickening of the urinary bladder with partial distention and perivesicular stranding. Air within the urinary bladder is likely secondary to instrumentation. A Wise catheter within the urinary bladder appears appropriately positioned. Prostamegaly. Small fat-filled left inguinal hernia. Mixed plaque of the abdominal aorta without aneurysm. Unremarkable IVC. Pathologically enlarged lymph node of the mid pelvic mesentery redemonstrated, 2.3 x 1.4 cm on image 347 of series 6, previously 2.0 x 1.4 cm. Prominent right pelvic sidewall lymph node on image 386 of series 6 measures 8 mm. There are a few scattered nonenlarged perirectal lymph nodes also present which are new from prior. Circumferential wall thickening of the anus and rectum is noted with perirectal stranding. A thick-walled peripherally enhancing fluid collection is noted within the inferomedial left gluteal crease distribution within the area of previously described soft tissue ulcer. The inflammation and soft tissue thi ckening within this region has increased in size from comparison. This likely extends to the skin surface. Enteric tube is noted with distal tip terminating in the proximal gastric body. Mild nonspecific wall thickening of the distal stomach. No bowel obstruction. Mild fecal retention. Multiple decompressed loops of large bowel. Visualized appendix is noninflamed. Moderate diffuse body wall edema with mild diffuse mesenteric edema. Demineralized appearance to the bones with degenerative changes of the spine, pelvis and hips. Chronic lower anterior right-sided rib fractures. There are no suspicious lytic or blastic osseous lesions identified. Scattered sclerotic foci of the lower lumbar spine and pelvis redemonstrated suggestive of probable bone island. IMPRESSION: 1. Circumferential wall thickening of the rectum and anus, likely correlating with the patient's reportedly known neoplasm. A single enlarged pelvic mesenteric lymph node is redemonstrated along with new prominent right pelvic sidewall and several prominent nonenlarged perirectal lymph nodes suggestive of lymphatic metastasis. 2. Within the area of previously described soft tissue ulceration of the left inferomedial gluteal crease, there is progressive inflammation, now with an air and fluid-filled collection measuring up to 3.8 x 1.8 cm suggestive of abscess which appears to be contiguous with the adjacent cutaneous surface and may also communicate with the anus. Decubitus ulcer versus ulceration related to neoplasm are the differential considerations. Correlate with clinical exam findings. 3. No bowel obstruction. 4. Fluid overload manifested by pleural effusions with body wall and mesenteric edema. 5. Left greater than right bibasilar consolidation. 6. Additional findings as above.
[2019-08-29 13:23] LABS: Eosinophil Body Fluid Man 0 %; Fluid Mono/Macrophage 1 %
[2019-08-29 13:24] LABS: Lymphocyte Body Fluid Man 1 %; Neutrophil Body Fluid Man 98 %
[2019-08-29] MEDS: PIPERACILLIN/TAZOBACTAM 3.375 GM in DEXTROSE 5% 100 ML IV SCH (16:16)
[2019-08-29] MEDS ORDERED: PROPOFOL BOLUS FROM BAG IV PRN (19:13)
[2019-08-29] MEDS: TAMSULOSIN HCL 0.4 MG CAP PO SCH (21:24)
[2019-08-29] MEDS: DOCUSATE SODIUM SYRUP 100 MG/10 ML UDC NG SCH (22:13)
[2019-08-29] MEDS: propofoL 1,000 MG/100 ML VIAL IV SCH (23:06)
[2019-08-30] MEDS ORDERED: fentaNYL citrate 100 MCG/2 ML VIAL IV STA (00:11)
[2019-08-30] MEDS: PIPERACILLIN/TAZOBACTAM 3.375 GM in DEXTROSE 5% 100 ML IV SCH ×4 (01:17→23:46)
[2019-08-30 01:29] LABS: Magnesium 1.7 mg/dl (1.8-2.4)
[2019-08-30] MEDS: MAGNESIUM SULFATE / D5W 1 GM/100 ML BAG IV SCH ×2 (01:52→02:28)
[2019-08-30 01:59] LABS: Basophils # (auto) 0.01 K/uL (0-0.2); Basophils % (auto) 0.1 %; Eosinophils # (auto) 0.07 K/uL (0-0.5); Eosinophils % (auto) 0.7 %; Hematocrit (blood only) 34.1 % (42-52); Hemoglobin 10.4 g/dL (14.0-18.0); Immature Granulocytes # (auto) 0.01 K/uL (0.00-0.02); Immature Granulocytes % (auto) 0.1 %; Lymphocytes # (auto) 1.44 K/uL (1.2-3.4); Lymphocytes % (auto) 14.8 %; Mean Corpuscular Hemoglobin 27.7 pg (25-34); Mean Corpuscular Hgb Conc 30.5 g/dL (32-36); Mean Corpuscular Volume 90.7 fL (80-100); Mean Platelet Volume 10.4 fL (7.4-10.4); Monocytes # (auto) 0.79 K/uL (0.11-0.59); Monocytes % (auto) 8.1 %; Neutrophils # (auto) 7.42 K/uL (1.4-6.5); Neutrophils % (auto) 76.2 %; Platelet Count 143 K/uL (130-400); RDW Coefficient of Variation 16.4 % (11.5-14.5); RDW Standard Deviation 53.9 fL (36.4-46.3); Red Blood Count 3.76 M/uL (4.7-6.1); White Blood Count 9.74 K/uL (4.8-10.8)
[2019-08-30 02:08] LABS: Albumin Globulin Ratio 0.7 (0.9-2); Albumin Level 2.1 gm/dl (3.4-5.0); BUN Creatinine Ratio 17.9 (10-20); Bilirubin,Total 0.5 mg/dl (0.2-1); Est GFR (African American) 101.8; Est GFR (Non-African American) 87.9; Globulin 3.2 gm/dl (2.5-4.0); Potassium 2.8 mmol/L (3.5-5.1); Total Protein 5.3 gm/dl (6.4-8.2)
[2019-08-30] MEDS ORDERED: POTASSIUM CHLORIDE / WTR 10 MEQ/100 ML PLCT IV STA (02:24)
[2019-08-30] MEDS ORDERED: POTASSIUM CHLORIDE 20 MEQ/15 ML UDC PO STA (02:24)
[2019-08-30] MEDS ORDERED: POTASSIUM CHLORIDE / WTR 20 MEQ/100 ML PLCT IV ONE ×2 (02:26→10:15)
[2019-08-30] MEDS ORDERED: VANCOMYCIN TROUGH ONE (03:30)
[2019-08-30] MEDS: VANCOMYCIN HCL 1,750 MG in SODIUM CHLORIDE 0.9% 500 ML IV SCH (05:06)
--- NOTE | 2019-08-30 07:27 | XRay Report ---
XR chest 1V portable CLINICAL HISTORY: 69 years-old Male presenting with pneumonia and acute respiratory failure. TECHNIQUE: Portable upright AP view of the chest was obtained. COMPARISON: 08/29/2019. FINDINGS: Right subclavian implanted cardiac defibrillator with single lead to the right ventricular apex. Medi an sternotomy wires and prosthetic aortic valve. Endotracheal tube remains in place terminating in th e midthoracic trachea over 3 cm from the bassam. Left subclavian Mediport terminates in the left brac hiocephalic vein. Nasogastric tube descends below the diaphragm, terminus not visualized. Several ove rlying external leads. These devices make evaluation of the lung parenchyma difficult. Atherosclerosis of the aorta. Pulmonary vascular prominence in the left lung. Cardiac silhouette mode rately enlarged. Prominence of the main pulmonary artery may be present. Dense left basilar predomina nt opacity. Small left pleural effusion may be present. Apparent nodular opacities in the right lung base. No pneumothorax. Degenerative changes of the thoracic spine. Degenerative changes of the should ers. Upper abdomen normal. IMPRESSION: 1. Extensive basilar predominant left lung infiltrates concerning for pneumonia superimposed on unde rlying atelectasis. 2. Small left pleural effusion may be present, possibly parapneumonic effusion. 3. Apparent nodular opacities at the right lung base corresponding to the presence of fractures of t he right anterior ribs. Underlying right basilar infiltrate evident on recent CT not as well apprecia maria teresa on the current exam. 4. The presence of a right pleural effusion is better appreciated on recent CT. 5. Cardiomegaly with pulmonary hypertension. ACT 112: Negative or not required by law. Electronically signed by: Ramos Seaman M.D. 08/30/2019 7:26 AM
--- NOTE | 2019-08-30 08:37 | Neurology Progress Note ---
Date of Service August 30, 2019 Assessment & Plan (1) Acute encephalopathy: (2) Status epilepticus: (3) Basilar artery stenosis: (4) CVA (cerebral vascular accident): Patient had the onset of acute encephalopathy August 27, improving some this morning compared to yesterday (off propofol). The etiology of the encephalopathy was likely hypoxic/cardiopulmonary in origin although a post ictal state could not be entirely excluded. He has pleural effusions, atelectasis, and congestive heart failure. Although some seizure activity was noted in the emergency room upon admission, he has not had any seizure activity since admission. 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 Hypoxia, ischemia (patient has a history of significant anemia), and his previous stroke would put him at risk for seizures. CT scan of the head showed no new lesions and CT angiography of the head and neck revealed the carotid plaque and basilar stenosis as seen before. He was on no antiplatelet medication prior to admission. Patient was loaded with Keppra 1 g and is now on 500 mg twice daily. Patient had the onset of right pontine and left parietal strokes in July 2018 in the setting of atrial fibrillation and some vascular stenoses. Anticoagulation was attempted but he had GI bleeding in the rectal carcinoma was discovered. He is post radiation therapy and chemotherapy for the rectal carcinoma and there is no indication for surgery. He is followed by Oncology. He remains in atrial fibrillation. Currently his neurologic examination is mostly nonfocal although he he has a little more weakness on the right side than the left. This could be consistent with his previous left parietal stroke. I certainly cannot exclude a new small stroke but the patient's family has refused MRIs in the past because they did not want his ICD pacer turned off for the MRI. Patient has a 60% stenosis of the mid basilar artery. Recommendations: 1. Consider MRI of the brain, if family is willing to consent for turning off his ICD for the MRI, but at this point, I am not certain that an MRI would change treatment options currently. 2. Continue levetiracetam 500 mg twice daily. He did well on this dose. 3. Consider antiplatelet medication such as clopidogrel 75 mg daily to prevent stroke, especially in lieu of the basilar artery stenosis. Anticoagulation would typically not help small vessel ischemic disease 4. Because of his ongoing atrial fibrillation he should be on an anticoagulant. Currently he is on apixaban 5 mg daily. He is at risk for GI/rectal bleeding 5. Increase activity as able. Hopefully he can be extubated. He might benefit from physical and occupational therapy. 6. His current care status, linking outpatient with inpatient care, is confusing to me. He was on hospice care since May but now is on full treatment/resuscitation. According to Victoria Riley's case management note from August 28, the patient was on hospice with no continuity of medical care, then with his acute problem, the family wants everything done in the hospital, and then put him back on hospice with no treatment for the cancer once discharged. This shows a lack of family understanding of true hospice care. He may benefit from palliative care consultation. 7. Overall, I have nothing further to offer from a neurologic standpoint. Please contact me if I can be of further assistance on this case. Overall, I spent a total of 70 minutes with this case including review of records, review of CT films, direct evaluation the patient at bedside, and discussing the case with the patient and RN at bedside, as well as doctors Lane and Nino, regarding differential diagnosis and treatment options. Subjective Patient does not respond affirmatively that he has any pain or headache communication is impaired by intubation and multiple medical problems. Nursing reports no seizures overnight. He has been in atrial fibrillation chronically, he has been afebrile. CT of the abdomen and pelvis reveal some local metastases in the lymph nodes. In addition there was possible abscess near the anus. CT angiography of the chest revealed pleural effusions and left lung atelectasis. There is no evidence of PE. There was cardiomegaly and chronic right 7th and 8th rib fracture changes. MRI of the brain was not done. CBC shows a hemoglobin of 10.4 and hematocrit of 34.1. Chem profile showed a potassium of 2.8 and magnesium of 1.7. Blood pressure is 95/63 this morning Physical Exam Physical Exam: Patient was on 5 micrograms/kilogram per minute of propofol which was discontinued when we started the neurologic examination. At 1st, the patient was very obtunded and slow to respond. He was not responsive to voice or shout. After approximately 5 minutes he would open his eyes spontaneously and as the examination when on, he would track to the right and to the left conjugately and fix his gaze to the right or left suddenly if past. He could look up and down. Again his eyes were conjugate. Pupils at 1st were about 2 mm bilaterally, and then after he was more alert they were 3 mm and reactive to light. There were positive corneal responses bilaterally. I did not note nystagmus. Patient could voluntarily smile/lift the corners of his mouth bilaterally despite being intubated. He had a positive gag response bilaterally. Neck was supple. He had a positive cough response to suctioning. He would spontaneously move his right arm greater than was left and perhaps his right leg more than his left. However, he could voluntarily move all 4 limbs and had more strength in the left arm and leg that he did on the right. Tone was reasonable after the propofol wore off. Reflexes were absent in all 4 limbs. Toes were downgoing plantar stimulation bilaterally. He had immediate withdrawal and grimace with the pain in his left upper extremity. He had delayed withdrawal and less grimace with the pain in the left leg and the right arm and leg. Results & Data Vital Signs (Past 12 Hours) Vital Signs Temp Pulse Resp BP Pulse Ox 08/30/19 07:21 82 15 94 08/30/19 05:50 78 13 98 08/30/19 05:43 73 95/63 L 99 08/30/19 05:13 64 105/75 99 08/30/19 04:42 89 13 108/71 96 08/30/19 04:12 75 11 L 85/58 L 93 08/30/19 03:52 36.8 C 68 98/67 L 93 08/30/19 03:13 68 99/67 L 98 08/30/19 02:43 64 86/62 L 97 08/30/19 02:13 67 86/54 L 94 08/30/19 01:44 58 L 84/54 L 94 08/30/19 01:35 55 L 10 L 100 08/30/19 01:13 52 L 97/64 L 100 08/30/19 00:42 60 96/63 L 100 08/30/19 00:20 67 94/68 L 100 08/30/19 00:13 37.0 C 85 107/76 100 08/30/19 00:00 68 0302 23:43 64 102/55 L 98 08/29/19 23:13 68 88/64 L 99 08/29/19 23:05 70 93/64 L 99 0302/20 22:55 73 14 100 08/29/19 22:44 77 94/54 L 98 08/29/19 22:13 71 94/68 L 96 08/29/19 21:42 62 94/55 L 96 08/29/19 21:12 37.2 C 74 82/54 L 95 08/29/19 20:43 76 91/62 L 99 PG Care Time/CCT Total # of Minutes Spent Total Time Spent with Patient: Total time spent is greater than 50% in coordination of care (as documented) at patient's floor/unit and/or counseling patient: Coding Level of Care Code 62817 Subseq Hosp Care Lvl 3 Diagnoses Acute encephalopathy G93.40 Status epilepticus G40.901 Basilar artery stenosis I65.1 CVA (cerebral vascular accident) I63.412 CVA mechanism: embolism Precerebral and cerebral artery: middle cerebral artery Laterality of affected vessel: left Time Spent (min) 70 Comment Add [id number] to the 92832 (1) CVA (cerebral vascular accident) CVA mechanism: embolism Precerebral and cerebral artery: middle cerebral artery Laterality of affected vessel: left Qualified Code(s): I63.412 - Cerebral infarction due to embolism of left middle cerebral artery
[2019-08-30] MEDS: FUROSEMIDE 40 MG in SYRINGE 0 ML IV SCH (09:13)
[2019-08-30] MEDS: levETIRAcetam 500 MG in 0.9 % SODIUM CHLORIDE 100 ML IV SCH ×2 (09:13→21:28)
[2019-08-30] MEDS: DOCUSATE SODIUM SYRUP 100 MG/10 ML UDC NG SCH ×2 (09:14→20:54)
[2019-08-30] MEDS: MAGNESIUM OXIDE 400 MG TAB PO SCH (09:14)
[2019-08-30] MEDS: DOXYCYCLINE HYCLATE 100 MG in DEXTROSE 5% 100 ML IV SCH ×2 (09:14→20:47)
[2019-08-30] MEDS: LANSOPRAZOLE 30 MG SOLTAB NG SCH (09:15)
[2019-08-30] MEDS: predniSONE 20 MG TAB PO SCH (09:15)
[2019-08-30 10:28] LABS: BUN Creatinine Ratio 18.6 (10-20); Calcium 9.2 mg/dl (8.5-10.1); Creatinine Clr Calc Pharmacy 90.1 ml/min; Est GFR (African American) 103.3; Est GFR (Non-African American) 89.2; Magnesium 1.9 mg/dl (1.8-2.4); Potassium 2.8 mmol/L (3.5-5.1)
[2019-08-30] MEDS ORDERED: CLOTRIMAZOLE 1% CR 15 GM TUBE EXT PRN (10:51)
[2019-08-30] MEDS: propofoL 1,000 MG/100 ML VIAL IV SCH (11:00)
--- NOTE | 2019-08-30 11:02 | Consultation Report ---
DATE OF CONSULTATION: 08/30/2019 ONCOLOGY CONSULTATION REASON FOR CONSULTATION: Acute respiratory failure in a 69-year-old gentleman well known to [facility] with adenocarcinoma of the rectum. HISTORY OF PRESENT ILLNESS: The patient is a 69-year-old gentleman well known to [facility], currently under my care with the diagnosis of adenocarcinoma of the rectum, stage indeterminate. This gentleman was originally diagnosed back in 09/2018 after he had presented to [facility] with prolonged bright rectal bleeding, diarrhea and right lower quadrant abdominal pain. Colonoscopy was performed by Dr. Derek Hawkins revealing rectal tumor approximately 5 cm from the anal verge. Biopsies were taken and confirmed the diagnosis. CT scan of the chest, abdomen and pelvis had revealed regional lymphadenopathy, specifically in the right iliac region. It was decided at that time he was not resectable and proceeded with a metastatic regimen, particularly FOLFOX with Avastin. The patient was actually last seen by the physician vegetable tier on 05/09/2019, at which time he received the second last scheduled course of FOLFOX with bevacizumab. The patient was subsequently admitted to hospital around [facility] with pulmonary embolism, rectal bleeding, urinary tract infection and altered mental status. My last dictated note was on 05/20/2019. My plan at that point was for the patient to receive his final course of chemotherapy once medically stable. The managing hospitalist at that time was planning to send the patient for rehabilitation because of deconditioning. Froylan was also being worked up at that time for syncopal episodes, possible seizure activity which was thought to be cardiac related. I was planning to see the patient as outpatient within the next week or two post discharge. That did not happen. I was contacted on Thursday to alert me the patient had represented to [facility] and was currently being evaluated by the hospitalist for acute respiratory failure. The patient apparently was in respiratory distress, initially was placed on BiPAP, but clearly continued to falter. I was informed the patient was officially on hospice. I personally did not discuss hospice with the patient or family during his admission in April and was somewhat dumbfounded why he was indeed in hospice. Apparently, the patient himself had made the decision to enter hospice and thus he was never seen at [facility] for followup visit. Thus, I advised the hospitalist to proceed with intubation if that is what the family and the patient desires. I also requested updated scans to be able to determine the status of his cancer moving forward. So, initially the patient's case was discussed in tumor board, and was determined not to be a surgical candidate and recommended to proceed with palliative radiation therapy to the rectum followed by systemic therapy thereafter. Palliative radiation did take place and was completed in 10/2018. The patient again was hospitalized in Apr 2109 for syncope x2 brought on by ventricular tachycardia and thus Cardiology installed pacemaker/internal defibrillator. The primary service is requesting guidance regarding long-term treatment goals. PAST MEDICAL HISTORY: Significant for congestive heart failure, cardiac arrhythmias, aortic stenosis, atrial fibrillation, BPH, locally advanced adenocarcinoma of the rectum, CVA, type 2 diabetes mellitus, gastroesophageal reflux disease, hyperlipidemia, hypertension, chronic kidney disease, osteoarthritis, seizure disorder and sleep apnea. PAST SURGICAL HISTORY: Status post aortic valve replacement, knee surgery, cardiac catheterization, colonoscopy, tooth extraction, Port-A-Cath. MEDICATIONS: Prior to admission include morphine concentrate 5 mg p.o. q. 4 hours p.r.n., magnesium oxide 400 mg p.o. daily, Keppra 500 mg p.o. q.a.m., fentanyl dose unknown 1 patch transdermally q. 72 hours, Eliquis 5 mg p.o. q.a.m., docusate sodium 500 mg p.o. b.i.d., prednisone 20 mg p.o. daily, Voltaren 1 gram topical q.i.d. to affected joints, Flomax 0.4 mg p.o. at bedtime, omeprazole 20 mg p.o. q.a.m. ALLERGIES: No known drug allergies. FAMILY HISTORY: Positive for colorectal cancer involving his mother. Father had coronary artery disease and hypertension. Sister, hypertension. Grandmother, diabetes. Brother with history of diabetes as well. REVIEW OF SYSTEMS: Unobtainable. The patient is sedated and intubated. PHYSICAL EXAMINATION: GENERAL: Sedated and intubated 69-year-old gentleman, in no acute distress. VITAL SIGNS: Temperature 36.8, pulse 78, respiratory rate 13, blood pressure 95/63. SKIN: Multiple nonpalpable purpura, I suspect senile purpura of his upper extremities, otherwise no overt rashes or lesions. HEENT: Head is atraumatic, normocephalic. Again, he is intubated, sedated and thus examination minimal. NECK: Supple. HEART: Regular rate and rhythm. LUNGS: Bibasilar crackles. ABDOMEN: Soft, nontender, nondistended. EXTREMITIES: Pneumatic devices in place. NEUROLOGIC: The patient is sedated. LABORATORY DATA: WBC count 9740, hemoglobin 10.4, platelet count 143,000, absolute neutrophil count 7.42. Sodium 142, potassium 2.8, chloride 102, carbon dioxide 36, creatinine 0.86, BUN 15. RADIOGRAPHIC DATA: CTA of the chest: No evidence of pulmonary embolism. Evidence of secretions in the lower trachea, left main stem bronchus with occlusion of left lung airways resulting in extensive left lung atelectasis which is also worsened by the presence of small moderate left pleural effusion. CT scan of the abdomen and pelvis revealed couple of issues, circumferential wall thickening of the rectum/anus thought to be representatively primary neoplasm. There is also an air/fluid filled collection in the left inferomedial gluteal crease, 3.8 x 1.8 cm suggestive of an abscess. There is a regional lymphadenopathy also noted, specifically right pelvic side wall and several prominent not enlarged perirectal lymph nodes suggestive of lymphatic metastatic disease. IMPRESSION: 1. Acute encephalopathy. 2. History of seizures. 3. Abscess/soft tissue ulceration of the left inferomedial gluteal crease. 4. Atrial fibrillation. 5. Locally advanced adenocarcinoma of the rectum. 6. Bilateral pleural effusions. PLAN: I have been asked to provide an opinion regarding the patient's survivability moving forward. This gentleman was diagnosed with locally advanced rectal carcinoma back in 09/2018. It was determined at that time he was not surgically resectable and therefore proceeded with palliative radiation therapy followed by FOLFOX and bevacizumab. The patient did not quite complete the full complement of chemotherapy as he was admitted back in 04/2019 with syncopal episode, questionable seizures at that time. The patient entered rehabilitation and somewhere along the way made the decision to proceed with hospice. Considering the patient has several comorbid issues and thus, think it is reasonable to continue with outpatient hospice care. His cancer is not curable and while not overtly metastatic in presentation at the time, his disease at some point will progress. Between his pulmonary and cardiac issues, I think there is certainly grounds to strongly consider palliation moving forward. 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 Agree with current medical management otherwise. I would be more than happy to engage with the patient's family to further discuss if they desire. I have nothing further to add and will officially sign off unless needed again. ZEINA
--- NOTE | 2019-08-30 13:15 | Pharmacy Report ---
Pharmacy Abx Dose Short Note - Date of Service August 30, 2019 - Assessment & Plan Assessment * 69 year old M receiving VANCOMYIN + ZOSYN + DOXYCYCLINE for treatment of naye- rectal abscess + pneumonia (aspiration); Pharm consulted to dose VANCOMYCIN + ZOSYN * Day # 3 of VANCOMYCIN therapy. Day # 2 ZOSYN therapy. Day # 3 DOXYCYCLINE * Base of abscess is draining, cx pending, gram stain showing few GPC, few GNC, and rare GNR * Nasal swab negative for MRSA --> lessening likelihood of MRSA pna * BAL cx (preliminary results): moderate normal christen * Procal 0.23 (08/27), has not been repeated * 3 CXR read as: Extensive basilar predominant left lung infiltrates concerning for pneumonia superimposed on underlying atelectasis. 2. Small left pleural effusion may be present, possibly parapneumonic effusion. 3. Apparent nodular opacities at the right lung base corresponding to the pre sence of fractures of the right anterior ribs. Underlying right basilar infiltrate evident on recent CT not as well appreciated on the current exam. 4. The presence of a right pleural effusion is better appreciated on recent CT. * Renal fxn stable Plan Vancomycin * Trough level of 26 mcg/mL is supratherapeutic. Prior doses hung on schedule. Level was drawn at the appropriate time. * Reduce dose from 1750mg Q 12 hrs to 1250 mg IV every 16 hours * Goal trough level for skin/skin structure infxn : 10 to 20 mcg/mL * Will check trough level w/ 3rd dose of new regimen if therapy is to continue Zosyn * eCrCl > 20cc/min * BMI < 35 * continue 3.375gm ext-infusion Q 8 hrs Pharmacy will continue to follow and will adjust dose/frequency as necessary. Thank you.
[2019-08-30] MEDS: POTASSIUM CHLORIDE / WTR 20 MEQ/100 ML PLCT IV SCH ×2 (13:33→15:25)
--- NOTE | 2019-08-30 13:34 | Hospitalist Progress Note ---
Date of Service August 30, 2019 Assessment & Plan (1) Acute respiratory failure: Admit to ICU-patient intubated for acute respiratory failure and respiratory acidosis with CO2 retention. due to likely aspiration pneumonia, aspiration event with seizure activity and inability to protect airway also with volume overload and acute on chronic heart failure with reduced EF had bronchoscopy on 08/28 with suctioning of mucous plug on the left extubated 08/29, breathing comfortably on room air (2) Respiratory acidosis: resolved with ventilation this was due to respiratory arrest, hypoventilation (3) Pneumonia: aspiration pneumonia, likely around the time of seizure activity mucous plugging of the left mainstem bronchus s/p bronchoscopy with lavage on 08/28, tolerated well continue Zosyn and Doxycycline, needs 7 days total (4) Acute on chronic HFrEF (heart failure with reduced ejection fraction): diuresing well, continue Lasix 40mg IV BID EF is known to be 20% still examines slightly volume overloaded (5) Status epilepticus: Patient was taking 500 mg nightly Keppra at home (underdosed, supposed to be on 500mg BID) He received 1000 mg IV of Keppra in the ER. d/w Dr. Raygoza, EEG here shows generalized slowing but he is on sedation would like to repeat off of Propofol continue Keppra 500mg IV BID change to PO if he can tolerate should be fine as long as he takes appropriate dosing (6) Lactic acidosis: resolved with supportive care (7) Pulmonary embolus, right: CTA of the chest does not show obvious PE, although there is a lot of motion artifact Continue apixaban (8) Altered mental status: post ictal he is lethargic today, just weaned off of sedation prior to extubation will wake up, shakes my hand, denies pain or dyspnea drifts back to sleep quickly without interaction (9) ICD (implantable cardioverter-defibrillator) in place: Stable no issues at this time. family expressed interest in turning off the ICD component (10) HLD (hyperlipidemia): statin therapy (11) HTN (hypertension): stable (12) DM type 2 (diabetes mellitus, type 2): Glycemic control per pharmacy. Patient was hypoglycemic before arrival to the emergency room. Continue monitoring. (13) Afib: Continue apixaban 5 mg p.o. every morning. (14) Naye-rectal abscess: evaluated by general surgery, the abscess is draining, no role for surgery continue Zosyn, WBC is only 9k patient would not want surgery will consult palliative care, patient would not want intubated if he declines again will return to home on hospice, will need POLST completed Admission and Anticipated Discharge Date Admission Date: August 28, 2019 Anticipated date of discharge: 09/02/19 Subjective patient extubated today, breathing comfortably on nasal canula family at the bedside, specifically his sister who is not the designated POA she relayed to me that he did agree to hospice prior to [place], he was happy with his decision there was uncertainty about what to do on admission, whether to intubate him now that he is extubated he would not want re-intubated patient is very lethargic during my visit, smiled, shook my hand but wanted to go right back to sleep reviewed labs, WBC 9k, Hb 10 K low at 2.8, Cr is stable discussed with Dr. Raygoza and Dr. Dee discussed with ICU staff discussed with sister that we will get formal palliative care consult to help with discharge planning, POLST Review of Systems Review of Systems: Unobtainable due to cognitive status (Lethargic, denied pain, is not in distress) Physical Exam Constitutional: well developed and + ill appearing; no acute distress Eyes: PERRL, conjunctivae normal, anicteric sclerae ENMT: external ear and nose normal, oropharynx normal Neck: trachea midline, no thyromegaly Respiratory: no respiratory distress (intubated) Auscultation: + diminished lung sounds (bases) and + rhonchi Cardiovascular: RRR, no murmur, no edema Gastrointestinal (Abdomen): normal bowel sounds, soft, nontender, no hepatosplenomegaly Musculoskeletal: no cyanosis or clubbing, extremities motor strength 5/5 Skin: no rashes, warm and dry Neurologic: no focal motor deficits and + not awake (Lethargic) Lymphatic: no cervical or axillary lymphadenopathy Results & Data ([facility]) Vital Signs (Past 12 Hours) Vital Signs Temp Pulse Resp BP Pulse Ox 08/30/19 12:02 37.0 C 74 26 H 92/64 L 98 08/30/19 10:58 78 20 107/59 L 94 08/30/19 10:14 87 91/70 L 93 08/30/19 09:13 83 104/68 98 08/30/19 08:20 85 16 99 08/30/19 08:13 89 102/68 93 08/30/19 08:05 80 108/61 91 08/30/19 08:00 74 08/30/19 07:43 92 H 126/37 L 94 08/30/19 07:21 82 15 94 08/30/19 07:13 37.0 C 77 104/74 94 08/30/19 05:50 78 13 98 08/30/19 05:43 73 95/63 L 99 08/30/19 05:13 64 105/75 99 08/30/19 04:42 89 13 108/71 96 08/30/19 04:12 75 11 L 85/58 L 93 08/30/19 03:52 36.8 C 68 98/67 L 93 08/30/19 03:13 68 99/67 L 98 08/30/19 02:43 64 86/62 L 97 08/30/19 02:13 67 86/54 L 94 08/30/19 01:44 58 L 84/54 L 94 08/30/19 01:35 55 L 10 L 100 Laboratory Results Laboratory Results - last 24 hr 08/29/19 08/30/19 08/30/19 17:44 01:02 01:02 WBC RBC Hgb Hct MCV MCH MCHC RDW Std Deviation RDW Coeff of Amandeep Plt Count MPV Immature Gran % (Auto) Neut % (Auto) Lymph % (Auto) [place] % (Auto) Eos % (Auto) Baso % (Auto) Immature Gran # (Auto) Neut # (Auto) Lymph # (Auto) [place] # (Auto) Eos # (Auto) Baso # (Auto) Sodium Potassium Chloride Carbon Dioxide Anion Gap BUN Creatinine Est Cr Clr Drug Dosing Est GFR ( Amer) Est GFR (Non-Af Amer) BUN/Creatinine Ratio Glucose POC Glucose 104 H 98 Calcium Phosphorus 4.0 Magnesium 1.7 L Total Bilirubin AST ALT Alkaline Phosphatase Total Protein Albumin Globulin Albumin/Globulin Ratio Vancomycin Trough 08/30/19 08/30/19 08/30/19 01:25 01:25 03:59 WBC 9.74 RBC 3.76 L Hgb 10.4 L Hct 34.1 L MCV 90.7 MCH 27.7 MCHC 30.5 L RDW Std Deviation 53.9 H RDW Coeff of Amandeep 16.4 H Plt Count 143 MPV 10.4 Immature Gran % (Auto) 0.1 Neut % (Auto) 76.2 Lymph % (Auto) 14.8 [place] % (Auto) 8.1 Eos % (Auto) 0.7 Baso % (Auto) 0.1 Immature Gran # (Auto) 0.01 Neut # (Auto) 7.42 H Lymph # (Auto) 1.44 [place] # (Auto) 0.79 H Eos # (Auto) 0.07 Baso # (Auto) 0.01 Sodium 142 Potassium 2.8 L D Chloride 102 Carbon Dioxide 36 H Anion Gap 4.0 BUN 15 Creatinine 0.86 Est Cr Clr Drug Dosing 88.0 Est GFR ( Amer) 101.8 Est GFR (Non-Af Amer) 87.9 BUN/Creatinine Ratio 17.9 Glucose 88 POC Glucose Calcium 9.0 Phosphorus Magnesium Total Bilirubin 0.5 AST 17 ALT 40 Alkaline Phosphatase 125 H Total Protein 5.3 L Albumin 2.1 L Globulin 3.2 Albumin/Globulin Ratio 0.7 L Vancomycin Trough 26.0 08/30/19 08/30/19 08/30/19 05:53 09:56 14:26 WBC RBC Hgb Hct MCV MCH MCHC RDW Std Deviation RDW Coeff of Amandeep Plt Count MPV Immature Gran % (Auto) Neut % (Auto) Lymph % (Auto) [place] % (Auto) Eos % (Auto) Baso % (Auto) Immature Gran # (Auto) Neut # (Auto) Lymph # (Auto) [place] # (Auto) Eos # (Auto) Baso # (Auto) Sodium 142 Potassium 2.8 L Chloride 101 Carbon Dioxide 33 H Anion Gap 7.0 BUN 16 Creatinine 0.83 Est Cr Clr Drug Dosing 90.1 Est GFR ( Amer) 103.3 Est GFR (Non-Af Amer) 89.2 BUN/Creatinine Ratio 18.6 Glucose 88 POC Glucose 99 94 Calcium 9.2 Phosphorus Magnesium 1.9 Total Bilirubin AST ALT Alkaline Phosphatase Total Protein Albumin Globulin Albumin/Globulin Ratio Vancomycin Trough Diagnostic Findings CXR IMPRESSION: 1. Extensive basilar predominant left lung infiltrates concerning for pneumonia superimposed on underlying atelectasis. 2. Small left pleural effusion may be present, possibly parapneumonic effusion. 3. Apparent nodular opacities at the right lung base corresponding to the presence of fractures of the right anterior ribs. Underlying right basilar in filtrate evident on recent CT not as well appreciated on the current exam. 4. The presence of a right pleural effusion is better appreciated on recent CT. 5. Cardiomegaly with pulmonary hypertension. Medications Administered Current Inpatient Medications Clotrimazole (Lotrimin 1%) 1 appln EXT BID PRN PRN Reason: Affected Skin Folds Stop: 09/29/19 10:50 Dextrose (Dextrose 50%) 25 - 50 ml IV UD PRN; Protocol PRN Reason: Hypoglycemia Protocol Stop: 09/27/19 15:12 Diclofenac Sodium (Voltaren 1% Top) 1 gm EXT QID PRN PRN Reason: Pain Stop: 09/27/19 15:12 Docusate Sodium (Colace) 100 mg NG BID JENNIFFER Stop: 09/28/19 21:29 Last Admin: 08/30/19 09:14 Dose: Not Given Documented by: Glucagon (Glucagen) 1 mg SQ UD PRN; Protocol PRN Reason: Hypoglycemia Protocol Stop: 09/27/19 15:12 Glucose (Dex4 Glucose) 4 - 8 tabs PO UD PRN; Protocol PRN Reason: Hypoglycemia Protocol Stop: 09/27/19 15:12 Glucose (Glucose 40%) 15 - 30 gm PO UD PRN; Protocol PRN Reason: Hypoglycemia Protocol Stop: 09/27/19 15:12 Heparin Sodium (Porcine) (Heparin Sod 100 Unit/Ml Flush) 5 ml FLUSH PRN PRN PRN Reason: Flush Stop: 09/28/19 00:29 Heparin Sodium (Porcine) (Heparin Sodium (Porcine)) 5,000 units SQ Q8 JENNIFFER Stop: 09/29/19 13:59 Last Admin: 08/30/19 14:22 Dose: 5,000 units Documented by: Doxycycline Hyclate 100 mg/ (Dextrose) 110 mls @ 50 mls/hr IV BID JENNIFFER Stop: 09/04/19 20:59 Last Infusion: 08/30/19 12:36 Dose: Infused Documented by: Levetiracetam 500 mg/ Sodium (Chloride) 105 mls @ 420 mls/hr IV BID JENNIFFER Stop: 09/27/19 20:59 Last Infusion: 08/30/19 11:04 Dose: Infused Documented by: Furosemide 40 mg/ Syringe 4 mls @ 4 mls/min IV BID17 JENNIFFER Stop: 09/27/19 16:59 Last Admin: 08/30/19 09:13 Dose: 4 mls/min Documented by: Piperacillin Sod/Tazobactam (Sod 3.375 gm/ Dextrose) 115 mls @ 28.75 mls/hr IV Q8H [facility]; Protocol Stop: 09/08/19 16:29 Last Infusion: 08/30/19 13:21 Dose: Infused Documented by: Vancomycin HCl 1,250 mg/ (Sodium Chloride) 275 mls @ 125 mls/hr IV Q16H [facility]; Protocol Stop: 09/05/19 13:59 Last Admin: 08/30/19 14:16 Dose: 125 mls/hr Documented by: Potassium Chloride (K Foster / Wtr) 20 meq in 100 mls @ 50 mls/hr IV Q2H JENNIFFER Stop: 08/30/19 17:29 Last Admin: 08/30/19 13:33 Dose: 50 mls/hr Documented by: Ioversol (Optiray 320 125ml) 118 ml IV ONCE PRN PRN Reason: Interaction Checking Stop: 09/02/19 10:25 Last Admin: 08/29/19 10:26 Dose: 118 ml Documented by: [facility]opraz[facility] (Prevacid) [facility] Stop: 09/28/19 08:59 Last Admin: 08/30/19 09:15 Dose: Not Given Documented by: Magnesium Oxide (Mag-Ox) 400 mg [facility] [place] Stop: 09/28/19 08:59 Last Admin: 08/30/19 09:14 Dose: Not Given Documented by: Miscellaneous (Carbohydrates For Hypoglycemia) 15 - 30 gm PO UD PRN PRN Reason: Hypoglycemia Protocol Stop: 09/27/19 15:12 Miscellaneous Information (Consult) 1 ea N/A UD PRN PRN Reason: Consult Stop: 09/04/19 15:12 Miscellaneous Information (Consult) 1 ea N/A UD PRN PRN Reason: Consult Stop: 09/28/19 12:16 Prednisone (Prednisone) 20 mg PO QAM [facility]; Protocol Stop: 09/28/19 08:59 Last Admin: 08/30/19 09:15 Dose: Not Given Documented by: Tamsulosin HCl (Flomax) 0.4 mg PO HS [facility] Stop: 09/27/19 20:59 Last Admin: 08/29/19 21:24 Dose: 0.4 mg Documented by: PG Care Time/CCT Total # of Minutes Spent Total Time Spent with Patient: Total time spent is greater than 50% in coordination of care (as documented) at patient's floor/unit and/or counseling patient: Coding Level of Care Code 00422 Subseq Hosp Care Lvl 3 Diagnoses Acute respiratory failure J96.01; J96.02 Respiratory failure complication: hypoxia and hypercapnia Respiratory acidosis E87.2 Pneumonia J18.9 Laterality: unspecified laterality Lung location: unspecified part of lung Pneumonia type: due to unspecified organism Acute on chronic HFrEF (heart failure with reduced ejection fraction) I50.23 Status epilepticus G40.901 Lactic acidosis E87.2 Pulmonary embolus, right I26.99 Altered mental status R41.82 Altered mental status type: unspecified ICD (implantable cardioverter-defibrillator) in place Z95.810 HLD (hyperlipidemia) E78.2 Hyperlipidemia type: mixed hyperlipidemia HTN (hypertension) I10 Hypertension type: essential hypertension DM type 2 (diabetes mellitus, type 2) E11.9; Z79.4 Diabetes mellitus complication status: without complication Diabetes mellitus residential insulin use: with superintendent container terminal use Afib I48.2 Atrial fibrillation type: chronic Naye-rectal abscess K61.1 (1) Acute respiratory failure Respiratory failure complication: hypoxia and hypercapnia Qualified Code(s): J96.01 - Acute respiratory failure with hypoxia; J96.02 - Acute respiratory failure with hypercapnia (2) DM type 2 (diabetes mellitus, type 2) Diabetes mellitus complication status: without complication Diabetes mellitus residential insulin use: with superintendent container terminal use Qualified Code(s): E11.9 - Type 2 diabetes mellitus without complications; Z79.4 - prison (current) use of insulin (3) Afib Atrial fibrillation type: chronic Qualified Code(s): I48.2 - Chronic atrial fibrillation (4) HLD (hyperlipidemia) Hyperlipidemia type: mixed hyperlipidemia Qualified Code(s): E78.2 - Mixed hyperlipidemia (5) Altered mental status Altered mental status type: unspecified Qualified Code(s): R41.82 - Altered m ental status, unspecified (6) HTN (hypertension) Hypertension type: essential hypertension Qualified Code(s): I10 - Essential (primary) hypertension (7) Pneumonia Laterality: unspecified laterality Lung location: unspecified part of lung Pneumonia type: due to unspecified organism Qualified Code(s): J18.9 - Pneumonia, unspecified organism
--- NOTE | 2019-08-30 14:00 | Critical Care Progress Note ---
Date of Service August 30, 2019 Assessment & Plan (1) Acute encephalopathy: -- VDRF Likely secondary to status epilepticus with possible aspiration pneumonia Continue with antibiotics vancomycin and cefepime with atypical coverage given by doxycycline Influenza negative, nasal Patient likely had seizure leading to aspiration pneumonia. Continue with ventilatory support Keep RASS -1 Daily sedation holidays and SBT's --History of seizures Patient was supposed to be on Keppra 500 mg twice daily but was taking only 500 mg once daily This could be 1 of the reason that the patient had seizure to begin with Neurology has been consulted who read the EEG saying that there is no seizure- like activity appreciated on the EEG. They recommend continuing with 500 mg of Keppra twice daily Appreciate the recommendation. --Abscess/soft tissue ulceration of the left inferomedial gluteal crease 3.8 x 1.8 cm Will change cefepime to Zosyn to cover for anaerobes Follow-up septic work-up. Surgery consulted. No surgical intervention as abscess is draining itself. --A. fib Patient has history of bleeding lower GI Used to be on apixaban. DC'd because of history of multiple falls, Patient will not be on any more anticoagulation for his A. 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 Jacobson Patient was initially on hospice as of May 2019 as patient was very immobile and bedbound. --left lower lobe collapse Status post bronchoscopy 08/29/2019 and removal of mucous plug from the left main --Bilateral pleural effusion Likely secondary to systolic CHF with ejection fraction 20% Strict in and out Maintain negative balance --DVT prophylaxis IPCs --Hypokalemia with Hypomagnesemia Being replaced today Plan: Plan to extubate today. Family made aware regarding the discussion with the oncologist. Patient has some abdominal lymphadenopathy. But given that the patient has poor ejection fraction and poor respiratory status overall prognosis is guarded. ONUR Wise I have personally spent 36 minutes of critical care time in the direct management of this patient. This is a life/limb threatening event. This includes time spent evaluating patient, direct bedside care, chart review, placing orders, interpretation of diagnostic studies, discussion with consultants, patient, and family members, as well as other required patient management activities. This time is exclusive of all separately billable procedures, and teaching time and separate from and in addition to any other critical care service time. Please note the above document was generated using voice recognition software. It may contain grammatical, syntax or spelling errors. (2) Altered mental status: (3) Status epilepticus: (4) Acute respiratory failure: Subjective Patient seen and examined at bedside. No acute distress. Patient following commands today. Asking to remove the tube out. Patient getting good tidal volumes on pressure support 7/5 with 40% FiO2. Trial of extubation today. Review of Systems Review of Systems: All systems reviewed & are unremarkable except as noted in HPI & below Physical Exam Physical Exam: Constitutional: No acute distress HEENT: PERRLA, positive ETT Respiratory system: Decreased air entry bilaterally, no wheeze, no rhonchi, mild crackles bilateral lower lobes CVS: S1-S2 positive, no murmurs or gallops Abdomen: Soft, nontender, nondistended, positive bowel sounds x4 Extremities: +2 pulses bilaterally radialis/ dorsalis pedis, no cyanosis, no edema Neuro: PRASS -1. Patient awake and alert. Following commands. Moving extremities on command. Psych: Normal mood and affect. G/U: Positive Wise Right-sided AICD Skin: no rashes, warm and dry Lymphatic: no cervical or axillary lymphadenopathy Results & Data ([facility]) Vital Signs (Past 12 Hours) Vital Signs Temp Pulse Resp BP Pulse Ox 08/30/19 12:02 37.0 C 74 26 H 92/64 L 98 08/30/19 10:58 78 20 107/59 L 94 08/30/19 10:14 87 91/70 L 93 08/30/19 09:13 83 104/68 98 08/30/19 08:20 85 16 99 08/30/19 08:13 89 102/68 93 08/30/19 08:05 80 108/61 91 08/30/19 08:00 74 08/30/19 07:43 92 H 126/37 L 94 08/30/19 07:21 82 15 94 08/30/19 07:13 37.0 C 77 104/74 94 08/30/19 05:50 78 13 98 08/30/19 05:43 73 95/63 L 99 08/30/19 05:13 64 105/75 99 08/30/19 04:42 89 13 108/71 96 08/30/19 04:12 75 11 L 85/58 L 93 08/30/19 03:52 36.8 C 68 98/67 L 93 08/30/19 03:13 68 99/67 L 98 08/30/19 02:43 64 86/62 L 97 08/30/19 02:13 67 86/54 L 94 08/30/19 01:25 08/30/19 09:56 Coding Level of Care Code Critical Care 1st 30-74 mins Diagnoses Acute encephalopathy G93.40 Altered mental status R41.82 Status epilepticus G40.901 Acute respiratory failure J96.01; J96.02 Respiratory failure complication: hypoxia and hypercapnia Time Spent (min) 36 (1) Acute respiratory failure Respiratory failure complication: hypoxia and hypercapnia Qualified Code(s): J96.01 - Acute respiratory failure with hypoxia; J96.02 - Acute respiratory failure with hypercapnia
[2019-08-30] MEDS: VANCOMYCIN HCL 1,250 MG in SODIUM CHLORIDE 0.9% 250 ML IV SCH (14:16)
[2019-08-30] MEDS: HEPARIN SOD 5,000 UNIT/0.5 ML VIAL SQ SCH ×2 (14:22→21:29)
[2019-08-30 19:05] LABS: Calcium 9.2 mg/dl (8.5-10.1); Creatinine Clr Calc Pharmacy 92.3 ml/min; Est GFR (African American) 104.4; Potassium 3.1 mmol/L (3.5-5.1)
[2019-08-30] MEDS: TAMSULOSIN HCL 0.4 MG CAP PO SCH (21:27)
[2019-08-31] MEDS: HEPARIN 100 UNIT/ML 5ML FLUSH FLUSH PRN ×2 (03:36→14:45)
[2019-08-31 03:44] LABS: Codeine Urine NEGATIVE ng/mL (<50); Hydrocodone Urine NEGATIVE ng/mL (<50); Hydromor Urine NEGATIVE ng/mL (<50); Morphine Urine 706 ng/mL (<50); Norhydrocodone Conf Ur NEGATIVE ng/mL (<50); Noroxycodone Urine NEGATIVE ng/mL (<50); Oxycodone Urine NEGATIVE ng/mL (<50); Oxymorph Urine NEGATIVE ng/mL (<50)
[2019-08-31] MEDS: HEPARIN SOD 5,000 UNIT/0.5 ML VIAL SQ SCH ×3 (05:58→20:49)
[2019-08-31] MEDS: VANCOMYCIN HCL 1,250 MG in SODIUM CHLORIDE 0.9% 250 ML IV SCH (05:58)
[2019-08-31 06:16] LABS: Basophils # (auto) 0.02 K/uL (0-0.2); Basophils % (auto) 0.3 %; Eosinophils # (auto) 0.15 K/uL (0-0.5); Eosinophils % (auto) 2.3 %; Hematocrit (blood only) 33.9 % (42-52); Hemoglobin 10.8 g/dL (14.0-18.0); Immature Granulocytes # (auto) 0.04 K/uL (0.00-0.02); Immature Granulocytes % (auto) 0.6 %; Lymphocytes # (auto) 1.26 K/uL (1.2-3.4); Mean Corpuscular Hemoglobin 28.7 pg (25-34); Mean Corpuscular Hgb Conc 31.9 g/dL (32-36); Mean Corpuscular Volume 90.2 fL (80-100); Monocytes # (auto) 0.59 K/uL (0.11-0.59); Monocytes % (auto) 8.9 %; Neutrophils # (auto) 4.56 K/uL (1.4-6.5); Neutrophils % (auto) 68.9 %; Platelet Count 144 K/uL (130-400); RDW Coefficient of Variation 16.3 % (11.5-14.5); RDW Standard Deviation 53.5 fL (36.4-46.3); Red Blood Count 3.76 M/uL (4.7-6.1); White Blood Count 6.62 K/uL (4.8-10.8)
[2019-08-31 06:51] LABS: Est GFR (African American) 107.7; Potassium 2.9 mmol/L (3.5-5.1)
[2019-08-31 06:52] LABS: BUN Creatinine Ratio 18.9 (10-20); Creatinine Clr Calc Pharmacy 99.3 ml/min; Est GFR (Non-African American) 92.9
[2019-08-31 06:54] LABS: Albumin Globulin Ratio 0.6 (0.9-2); Bilirubin,Total 0.6 mg/dl (0.2-1); Globulin 3.2 gm/dl (2.5-4.0); Total Protein 5.2 gm/dl (6.4-8.2)
[2019-08-31] MEDS: POTASSIUM CHLORIDE / WTR 20 MEQ/100 ML PLCT IV SCH ×3 (08:51→12:39)
[2019-08-31] MEDS: PIPERACILLIN/TAZOBACTAM 3.375 GM in DEXTROSE 5% 100 ML IV SCH ×2 (08:55→15:40)
[2019-08-31] MEDS: DOXYCYCLINE HYCLATE 100 MG in DEXTROSE 5% 100 ML IV SCH ×2 (08:56→21:24)
[2019-08-31] MEDS: DOCUSATE SODIUM SYRUP 100 MG/10 ML UDC NG SCH ×2 (09:00→20:48)
[2019-08-31] MEDS: MAGNESIUM OXIDE 400 MG TAB PO SCH (09:01)
[2019-08-31] MEDS: predniSONE 20 MG TAB PO SCH (09:01)
[2019-08-31] MEDS: LANSOPRAZOLE 30 MG SOLTAB NG SCH (09:01)
--- NOTE | 2019-08-31 09:05 | Palliative Care Consultation ---
Date of Consultation August 31, 2019 Assessment & Plan (1) Goals of care, counseling/discussion: This gentleman is a 69 years old male who was brought to the ED by his family with altered mental status. This patient was enrolled on Hospice Services through [facility] since May 2020 with a Hospice diagnosis of rectal metastatic adenocarcinoma. 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 After a lengthy conversation in the emergency room, the family decided to revoke hospice services for aggressive treatment including intubation. The patient was intubated for decreased consciousness and he was not really responding to a NRB or BiPap. His ABG revealed: pH of 7.02 and with CO2 retention of 79. Decision was made with permission of family to intubate patient and treat him for possible pneumonia versus acute systolic CHF exacerbation. Additional information includes that the patient is Spiritism and would not permit any blood transfusions if needed. Ultimately the patient did show improvement and was able to be extubated. Palliative Care was consulted to discuss goals of care and complete a POLST form. -I met with the patient in room 256. Initially, no family or friends were present. He is AAO to person and place. He does have expressive aphagia. -He was able to answer simple questions, but appeared to have some level of confusion and the expressive aphagia made communicating more difficult. The patient was able to follow simple commands when asked, including squeezing his hands and wiggling his toes. -The patients [id number] Annette (MELISSA) and brother Otis were at the bedside soon after I started my visit. The patient lives with them both and they provide care between the two of them 19/01. -They made clear that their plans were to return home with Hospice services again. They expressed being content with [facility] and appreciated their services, not wishing to change services. -Patient remains on 2LNC post extubation. Pt was not on any prior supplemental oxygen. -Swallowing was a concern and after discussion with the Hospitalist, planned for speech therapy to assess. -Speech Therapy did evaluate the patient and their recommendations were to alternate between solid and liquids, ensure pt is fully alert and upright which was discussed with the family. Patient was cleared for a regular diet with aspiration precautions. -We did discuss comfort feeding and risk vs benefits. All understand. -Patient does have an AICD which will be deactivated prior to discharge. Hospitalist communicating with [employer]. -Pt does have a rectal abscess from his malignancy that does drain and require dressing changes which hospice was assisting with. -We discussed goals of care and went over the details of the POLST form. It was completed and signed by Annette, who also is the patients POA. The POLST reflects: DNR/DNI, Comfort Measures Only with a goal to avoid re-hospitalization, trial abx and no artificial nutrition/hydration. -Likely plan for discharge home with hospice tomorrow (). All equipment already at the patients home, aside from O2 which will be delivered prior to arrival home. -PPS 30% (2) Altered mental status: (3) Status epilepticus: (4) Respiratory acidosis: (5) Acute respiratory failure: Respiratory failure complication: hypoxia and hypercapnia Qualified Code(s): J96.01 - Acute respiratory failure with hypoxia; J96.02 - Acute respiratory failure with hypercapnia (6) ICD (implantable cardioverter-defibrillator) in place: (7) CKD (chronic kidney disease) stage 2, GFR 60-89 ml/min: (8) Rectal adenocarcinoma: History of Present Illness Reason for Consultation: Goals of Care Requesting Physician: Dr. Sherman Attending Physician: Popeye Sherman, History of Present Illness This gentleman is a 69 years old male who was brought to the ED by his family with altered mental status. This patient was enrolled on Hospice Services through [facility] since May 2020 with a Hospice diagnosis of rectal metastatic adenocarcinoma. 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 After a lengthy conversation in the emergency room, the family decided to revoke hospice services for aggressive treatment including intubation. The patient was intubated for decreased consciousness and he was not really responding to a NRB or BiPap. His ABG revealed: pH of 7.02 and with CO2 retention of 79. Decision was made with permission of family to intubate patient and treat him for possible pneumonia versus acute systolic CHF exacerbation. Additional information includes that the patient is Spiritism and would not permit any blood transfusions if needed. Ultimately the patient did show improvement and was able to be extubated. Palliative Care was consulted to discuss goals of care and complete a POLST form. Please see A/P for further details. Thank you kindly for involving the Palliative Care team with this patient. Please contact us for any additional assistance. Allergies Allergy/AdvReac Type Severity Reaction Status Date / Time No Known Allergies Allergy Verified 08/28/19 10:26 Home Medications Home Medications Medication Instructions Recorded Confirmed Type omeprazole 20 mg PO QAM 09/07/18 08/28/19 History tamsulosin [Flomax] 0.4 mg PO HS 09/07/18 08/28/19 History diclofenac sodium [Voltaren] 1 gm TOPICAL QID PRN 04/01/19 08/28/19 History prednisone 20 mg PO QAM 04/01/19 08/28/19 History docusate sodium [Stool Softener] 500 mg PO BID 05/14/19 08/28/19 History apixaban [Eliquis] 5 mg PO QAM 08/28/19 08/28/19 History fentanyl 1 patch TRANSDERMAL Q72H 08/28/19 08/28/19 History levetiracetam [Keppra] 500 mg PO QAM 08/28/19 08/28/19 History magnesium oxide 400 mg PO QAM 08/28/19 08/28/19 History morphine concentrate 5 mg PO Q4 PRN 08/28/19 08/28/19 History Patient History Medical History AAA (abdominal aortic aneurysm) NEW FINDING Anemia Aortic stenosis Atrial fibrillation BPH (benign prostatic hyperplasia) Cancer COLON CANCER (NEW DX) RADIATION JUST COMPLETED Chronic systolic (congestive) heart failure Colon cancer Congestive heart failure CVA (cerebral vascular accident) 08/11/18 DM type 2 (diabetes mellitus, type 2) GERD (gastroesophageal reflux disease) HLD (hyperlipidemia) HTN (hypertension) Kidney disease (Chronic) Nonischemic cardiomyopathy Osteoarthritis Seizure "SMALL SEIZURE AT TIME OF CVA 07/2018" Sleep apnea Sleep apnea (Chronic) Surgical History H/O aortic valve replacement (Chronic) 2011 AT [facility] [address] H/O knee surgery RT/LEFT History of cardiac cath 2011 History of colonoscopy History of tooth extraction Port-A-Cath in place (Chronic) Family History Brother Family history of diabetes mellitus Mother Colon cancer Father Coronary heart disease Hypertension Sister Hypertension Grandmother Diabetes Social History Preferred Language: Indonesian Communication Ability: Unable 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 Beliefs That Will Affect Care: Restoration Restoration Beliefs: cheondoism marital status: Current Living Situation: Family Current Living Situation Comment: brother,, sister Feels Safe at Home: Yes Smoking Status: Never smoker Tobacco Type: cigarettes ; Age Quit Using Tobacco: 48 ; Cigarettes Per Day: 5 ; Number of Years Since Quit: 20 ; Second Hand Exposure: No ; Hx Alcohol Use: No Hx Substance Use: No Review of Systems Review of Systems: All systems reviewed & are unremarkable except as noted in HPI & below Pt denies DONALDSON, dizziness Pt denies CP, palpitations Pt denies SOB Pt denies abdominal pain Physical Exam Constitutional: + ill appearing, cooperative and comfortable Respiratory: normal respiratory effort, lungs clear to auscultation On 3LNC Cardiovascular: RRR, no murmur, no edema Gastrointestinal (Abdomen): normal bowel sounds, soft, nontender, no hepatosplenomegaly Skin: no rashes, warm and dry Neurologic: Speech / Cognition: + expressive aphasia Psychiatric: Orientation: alert Eye Contact: + fair eye contact Affect: + flat affect Insight: + limited insight Results & Data Vital Signs (Past 12 Hours) Vital Signs Temp Pulse Pulse Resp BP Pulse Ox 08/31/19 04:00 36.7 C 63 18 110/71 98 08/30/19 22:33 36.8 C 60 18 99/64 L 100 08/30/19 22:19 78 PG Care Time/CCT Total # of Minutes Spent Total Time Spent with Patient: Total time spent is greater than 50% in coordination of care (as documented) at patient's floor/unit and/or counseling patient: 70 Coding Level of Care Code 99954 Inpt Consult Level 3 Diagnoses Goals of care, counseling/discussion Z71.89 Altered mental status R41.82 Status epilepticus G40.901 Respiratory acidosis E87.2 Acute respiratory failure J96.01; J96.02 Respiratory failure complication: hypoxia and hypercapnia ICD (implantable cardioverter-defibrillator) in place Z95.810 CKD (chronic kidney disease) stage 2, GFR 60-89 ml/min N18.2 Rectal adenocarcinoma C20 Time Spent (min) 70 Time Spent Midlevel Total time spent 70 minutes with > 50% of that time spent assessing the patient, discussing goals of care and completing a POLST form, all while collaborating with IDT.
[2019-08-31] MEDS: levETIRAcetam 500 MG in 0.9 % SODIUM CHLORIDE 100 ML IV SCH ×2 (09:16→20:45)
--- NOTE | 2019-08-31 12:18 | Hospitalist Progress Note ---
Date of Service August 31, 2019 Assessment & Plan (1) Acute respiratory failure: Admit to ICU-patient intubated for acute respiratory failure and respiratory acidosis with CO2 retention. due to likely aspiration pneumonia, aspiration event with seizure activity and inability to protect airway also with volume overload and acute on chronic heart failure with reduced EF had bronchoscopy on 08/28 with suctioning of mucous plug on the left extubated 08/29, breathing comfortably on nasal canula today plan to go home on hospice, POLST completed, will not return to hospital, just keep comfortable (2) Respiratory acidosis: resolved with ventilation this was due to respiratory arrest, hypoventilation (3) Pneumonia: aspiration pneumonia, likely around the time of seizure activity mucous plugging of the left mainstem bronchus s/p bronchoscopy with lavage on 08/28, tolerated well continue Zosyn and Doxycycline while admitted change to PO on discharge stop Vancomycin (4) Acute on chronic HFrEF (heart failure with reduced ejection fraction): diuresing well with Lasix 40mg IV BID now stopped, examines euvolemic EF is known to be 20% wants hospice on discharge will turn off ICD prior to d/c (5) Status epilepticus: Patient was taking 500 mg nightly Keppra at home (underdosed, supposed to be on 500mg BID) He received 1000 mg IV of Keppra in the ER. d/w Dr. Raygoza, EEG here shows generalized slowing but he is on sedation would like to repeat off of Propofol continue Keppra 500mg IV BID, change back to PO on discharge should be fine as long as he takes appropriate dosing (6) Lactic acidosis: resolved with supportive care (7) Pulmonary embolus, right: CTA of the chest does not show obvious PE, although there is a lot of motion artifact Continue apixaban (8) Altered mental status: post ictal he was lethargic when weaned off of sedation prior to extubation much more alert and conversive today (9) ICD (implantable cardioverter-defibrillator) in place: Stable no issues at this time. family expressed interest in turning off the ICD component, request placed to rep (10) HLD (hyperlipidemia): statin therapy (11) HTN (hypertension): stable (12) DM type 2 (diabetes mellitus, type 2): Glycemic control per pharmacy. Patient was hypoglycemic before arrival to the emergency room. Continue monitoring. (13) Afib: Continue apixaban 5 mg p.o. every morning. (14) Naye-rectal abscess: evaluated by general surgery, the abscess is draining, no role for surgery continue Zosyn while admitted, change to PO on discharge patient would not want surgery will consult palliative care, patient would not want intubated if he declines again will return to home on hospice, LURDES completed Admission and Anticipated Discharge Date Admission Date: August 28, 2019 Anticipated date of discharge: 09/01/19 Subjective patient resting comfortably he is looking forward to going home tomorrow all set up for hospice, d/w palliative care, POLST completed requested his ICD be de-activated may require oxygen had speech evaluate him, he can have regular diet and take his medications labs show WBC 6k, Hb 10, K low at 2.9, CR 0.7 Review of Systems Review of Systems: All systems reviewed & are unremarkable except as noted in HPI & below Constitutional: + fatigue and + weakness; no fever Respiratory: + cough and + dyspnea Cardiovascular: no chest pain and no edema Gastrointestinal: no abdominal pain, no nausea, no vomiting, no constipation and no diarrhea/loose stools Musculoskeletal: + muscle weakness (generalized) Physical Exam Constitutional: well developed and + ill appearing; no acute distress Eyes: PERRL, conjunctivae normal, anicteric sclerae ENMT: external ear and nose normal, oropharynx normal Neck: trachea midline, no thyromegaly Respiratory: no respiratory distress (intubated) Auscultation: + diminished lung sounds (bases) and + rhonchi Cardiovascular: RRR, no murmur, no edema Gastrointestinal (Abdomen): normal bowel sounds, soft, nontender, no hepatosplenomegaly Musculoskeletal: no cyanosis or clubbing, extremities motor strength 5/5 Skin: no rashes, warm and dry Neurologic: patellar DTR's 2+ bilat, sensation intact and PERRL, EOMI, accommodation nl, no face palsy, no dysarthria awake; no focal motor deficits Psychiatric: A+Ox3, euthymic affect Lymphatic: no cervical or axillary lymphadenopathy Results & Data ([facility]) Vital Signs (Past 12 Hours) Vital Signs Temp Pulse Pulse Resp BP Pulse Ox 08/31/19 11:40 36.8 C 72 16 88/69 L 96 08/31/19 10:12 63 03/04/20 04:00 36.7 C 63 18 110/71 98 Laboratory Results Laboratory Results - last 24 hr 08/28/19 08/30/19 08/30/19 13:10 14:26 18:20 WBC RBC Hgb Hct MCV MCH MCHC RDW Std Deviation RDW Coeff of Amandeep Plt Count MPV Immature Gran % (Auto) Neut % (Auto) Lymph % (Auto) Gaines % (Auto) Eos % (Auto) Baso % (Auto) Immature Gran # (Auto) Neut # (Auto) Lymph # (Auto) Gaines # (Auto) Eos # (Auto) Baso # (Auto) Sodium 141 Potassium 3.1 L Chloride 99 Carbon Dioxide 36 H Anion Gap 6.0 BUN 14 Creatinine 0.81 Est Cr Clr Drug Dosing 92.3 Est GFR ( Amer) 104.4 Est GFR (Non-Af Amer) 90.0 BUN/Creatinine Ratio 17.0 Glucose 82 POC Glucose 94 Calcium 9.2 Total Bilirubin AST ALT Alkaline Phosphatase Total Protein Albumin Globulin Albumin/Globulin Ratio U Codeine Confrm GC/MS NEGATIVE Ur Morphine (GC/MS) 706 H Ur Hydrocodone (GC/MS) NEGATIVE Ur Norhydrocodone NEGATIVE Ur Noroxycodone NEGATIVE Urine Oxycodone (GC/MS) NEGATIVE U Oxymorphone GC/MS NEGATIVE Ur Hydromorphone (GC/MS) NEGATIVE Drug Screen Comment SEE NOTE 08/31/19 08/31/19 06:03 06:03 WBC 6.62 RBC 3.76 L Hgb 10.8 L Hct 33.9 L MCV 90.2 MCH 28.7 MCHC 31.9 L RDW Std Deviation 53.5 H RDW Coeff of Amandeep 16.3 H Plt Count 144 MPV 11.0 H Immature Gran % (Auto) 0.6 Neut % (Auto) 68.9 Lymph % (Auto) 19.0 Gaines % (Auto) 8.9 Eos % (Auto) 2.3 Baso % (Auto) 0.3 Immature Gran # (Auto) 0.04 H Neut # (Auto) 4.56 Lymph # (Auto) 1.26 Gaines # (Auto) 0.59 Eos # (Auto) 0.15 Baso # (Auto) 0.02 Sodium 142 Potassium 2.9 L Chloride 100 Carbon Dioxide 37 H Anion Gap 5.0 BUN 14 Creatinine 0.75 Est Cr Clr Drug Dosing 99.3 Est GFR ( Amer) 107.7 Est GFR (Non-Af Amer) 92.9 BUN/Creatinine Ratio 18.9 Glucose 70 POC Glucose Calcium 9.0 Total Bilirubin 0.6 AST 13 L ALT 24 Alkaline Phosphatase 103 Total Protein 5.2 L Albumin 2.0 L Globulin 3.2 Albumin/Globulin Ratio 0.6 L U Codeine Confrm GC/MS Ur Morphine (GC/MS) Ur Hydrocodone (GC/MS) Ur Norhydrocodone Ur Noroxycodone Urine Oxycodone (GC/MS) U Oxymorphone GC/MS Ur Hydromorphone (GC/MS) Drug Screen Comment Medications Administered Current Inpatient Medications Clotrimazole (Lotrimin 1%) 1 appln EXT BID PRN PRN Reason: Affected Skin Folds Stop: 09/29/19 10:50 Dextrose (Dextrose 50%) 25 - 50 ml IV UD PRN; Protocol PRN Reason: Hypoglycemia Protocol Stop: 09/27/19 15:12 Diclofenac Sodium (Voltaren 1% Top) 1 gm EXT QID PRN PRN Reason: Pain Stop: 09/27/19 15:12 Docusate Sodium (Colace) 100 mg NG BID JENNIFFER Stop: 09/28/19 21:29 Last Admin: 08/31/19 09:00 Dose: 100 mg Documented by: Glucagon (Glucagen) 1 mg SQ UD PRN; Protocol PRN Reason: Hypoglycemia Protocol Stop: 09/27/19 15:12 Glucose (Dex4 Glucose) 4 - 8 tabs PO UD PRN; Protocol PRN Reason: Hypoglycemia Protocol Stop: 09/27/19 15:12 Glucose (Glucose 40%) 15 - 30 gm PO UD PRN; Protocol PRN Reason: Hypoglycemia Protocol Stop: 09/27/19 15:12 Heparin Sodium (Porcine) (Heparin Sod 100 Unit/Ml Flush) 5 ml FLUSH PRN PRN PRN Reason: Flush Stop: 09/28/19 00:29 Last Admin: 08/31/19 03:36 Dose: 5 ml Documented by: Heparin Sodium (Porcine) (Heparin Sodium (Porcine)) 5,000 units SQ Q8 JENNIFFER Stop: 09/29/19 13:59 Last Admin: 08/31/19 05:58 Dose: 5,000 units Documented by: Doxycycline Hyclate 100 mg/ (Dextrose) 110 mls @ 50 mls/hr IV BID [facility] Stop: 09/04/19 20:59 Last Infusion: 08/31/19 11:11 Dose: Infused Documented by: Levetiracetam 500 mg/ Sodium (Chloride) 105 mls @ 420 mls/hr IV BID [facility] Stop: 09/27/19 20:59 Last Infusion: 08/31/19 09:39 Dose: Infused Documented by: Piperacillin Sod/Tazobactam (Sod 3.375 gm/ Dextrose) 115 mls @ 28.75 mls/hr IV Q8H [facility]; Protocol Stop: 09/08/19 16:29 Last Admin: 08/31/19 08:55 Dose: 28.8 mls/hr Documented by: Vancomycin HCl 1,250 mg/ (Sodium Chloride) 275 mls @ 125 mls/hr IV Q16H [facility]; Protocol Stop: 09/05/19 13:59 Last Infusion: 08/31/19 08:10 Dose: Infused Documented by: Potassium Chloride (K Foster / Wtr) 20 meq in 100 mls @ 50 mls/hr IV Q2H [facility] Stop: 08/31/19 14:44 Last Admin: 08/31/19 10:31 Dose: 50 mls/hr Documented by: Ioversol (Optiray 320 125ml) 118 ml IV ONCE PRN PRN Reason: Interaction Checking Stop: 09/02/19 10:25 Last Admin: 08/29/19 10:26 Dose: 118 ml Documented by: Lansoprazole (Prevacid) 30 mg NG [facility] Stop: 09/28/19 08:59 Last Admin: 08/31/19 09:01 Dose: 30 mg Documented by: Magnesium Oxide (Mag-Ox) 400 mg PO [facility] Stop: 09/28/19 08:59 Last Admin: 08/31/19 09:01 Dose: 400 mg Documented by: Miscellaneous (Carbohydrates For Hypoglycemia) 15 - 30 gm PO UD PRN PRN Reason: Hypoglycemia Protocol Stop: 09/27/19 15:12 Miscellaneous Information (Consult) 1 ea N/A UD PRN PRN Reason: Consult Stop: 09/04/19 15:12 Miscellaneous Information (Consult) 1 ea N/A UD PRN PRN Reason: Consult Stop: 09/28/19 12:16 Prednisone (Prednisone) 20 mg PO [facility]; Protocol Stop: 09/28/19 08:59 Last Admin: 08/31/19 09:01 Dose: 20 mg Documented by: Tamsulosin HCl (Flomax) 0.4 mg PO [facility] Stop: 09/27/19 20:59 Last Admin: 08/30/19 21:27 Dose: 0.4 mg Documented by: PG Care Time/CCT Total # of Minutes Spent Total Time Spent with Patient: Total time spent is greater than 50% in coordination of care (as documented) at patient's floor/unit and/or counseling patient: Coding Level of Care Code 37220 Subseq Hosp Care Lvl 3 Diagnoses Acute respiratory failure J96.01; J96.02 Respiratory failure complication: hypoxia and hypercapnia Respiratory acidosis E87.2 Pneumonia J18.9 Laterality: unspecified laterality Lung location: unspecified part of lung Pneumonia type: due to unspecified organism Acute on chronic HFrEF (heart failure with reduced ejection fraction) I50.23 Status epilepticus G40.901 Lactic acidosis E87.2 Pulmonary embolus, right I26.99 Altered mental status R41.82 Altered mental status type: unspecified ICD (implantable cardioverter-defibrillator) in place Z95.810 HLD (hyperlipidemia) E78.2 Hyperlipidemia type: mixed hyperlipidemia HTN (hypertension) I10 Hypertension type: essential hypertension DM type 2 (diabetes mellitus, type 2) E11.9; Z79.4 Diabetes mellitus complication status: without complication 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: with fpc use Afib I48.2 Atrial fibrillation type: chronic Naye-rectal abscess K61.1 (1) Acute respiratory failure Respiratory failure complication: hypoxia and hypercapnia Qualified Code(s): J96.01 - Acute respiratory failure with hypoxia; J96.02 - Acute respiratory failure with hypercapnia (2) DM type 2 (diabetes mellitus, type 2) Diabetes mellitus complication status: without complication Diabetes mellitus fpc insulin use: with fpc use Qualified Code(s): E11.9 - Type 2 diabetes mellitus without complications; Z79.4 - FPC (current) use of insulin (3) Afib Atrial fibrillation type: chronic Qualified Code(s): I48.2 - Chronic atrial fibrillation (4) HLD (hyperlipidemia) Hyperlipidemia type: mixed hyperlipidemia Qualified Code(s): E78.2 - Mixed hyperlipidemia (5) Altered mental status Altered mental status type: unspecified Qualified Code(s): R41.82 - Altered mental status, unspecified (6) HTN (hypertension) Hypertension type: essential hypertension Qualified Code(s): I10 - Essential (primary) hypertension (7) Pneumonia Laterality: unspecified laterality Lung location: unspecified part of lung Pneumonia type: due to unspecified organism Qualified Code(s): J18.9 - Pneumonia, unspecified organism
[2019-08-31 15:52] VITALS: O2SAT 99
[2019-08-31] MEDS: TAMSULOSIN HCL 0.4 MG CAP PO SCH (20:48)
[2019-09-01] MEDS: PIPERACILLIN/TAZOBACTAM 3.375 GM in DEXTROSE 5% 100 ML IV SCH ×3 (00:09→17:19)
[2019-09-01] MEDS: HEPARIN 100 UNIT/ML 5ML FLUSH FLUSH PRN ×2 (03:46→06:48)
[2019-09-01] MEDS: HEPARIN SOD 5,000 UNIT/0.5 ML VIAL SQ SCH ×2 (05:59→13:19)
[2019-09-01 07:10] LABS: Basophils # (auto) 0.01 K/uL (0-0.2); Basophils % (auto) 0.2 %; Eosinophils # (auto) 0.12 K/uL (0-0.5); Hematocrit (blood only) 35.3 % (42-52); Hemoglobin 10.7 g/dL (14.0-18.0); Lymphocytes # (auto) 1.17 K/uL (1.2-3.4); Lymphocytes % (auto) 19.4 %; Mean Corpuscular Hemoglobin 27.5 pg (25-34); Mean Corpuscular Hgb Conc 30.3 g/dL (32-36); Mean Corpuscular Volume 90.7 fL (80-100); Mean Platelet Volume 10.4 fL (7.4-10.4); Monocytes # (auto) 0.57 K/uL (0.11-0.59); Monocytes % (auto) 9.5 %; Neutrophils # (auto) 4.15 K/uL (1.4-6.5); Neutrophils % (auto) 68.9 %; Platelet Count 156 K/uL (130-400); RDW Standard Deviation 53.1 fL (36.4-46.3); Red Blood Count 3.89 M/uL (4.7-6.1); White Blood Count 6.02 K/uL (4.8-10.8)
[2019-09-01] MEDS: DOXYCYCLINE HYCLATE 100 MG in DEXTROSE 5% 100 ML IV SCH (07:33)
[2019-09-01 07:37] LABS: Albumin Level 2.1 gm/dl (3.4-5.0); BUN Creatinine Ratio 18.8 (10-20); Calcium 8.4 mg/dl (8.5-10.1); Creatinine Clr Calc Pharmacy 91.9 ml/min; Est GFR (African American) 104.4; Potassium 3.3 mmol/L (3.5-5.1)
[2019-09-01 07:39] LABS: Albumin Globulin Ratio 0.7 (0.9-2); Bilirubin,Total 0.6 mg/dl (0.2-1); Total Protein 5.1 gm/dl (6.4-8.2)
[2019-09-01 07:55] VITALS: TEMP 97.7
[2019-09-01] MEDS: MAGNESIUM OXIDE 400 MG TAB PO SCH (08:42)
[2019-09-01] MEDS: DOCUSATE SODIUM SYRUP 100 MG/10 ML UDC NG SCH (08:42)
[2019-09-01] MEDS: LANSOPRAZOLE 30 MG SOLTAB NG SCH (08:43)
[2019-09-01] MEDS: predniSONE 20 MG TAB PO SCH (08:43)
[2019-09-01] MEDS: levETIRAcetam 500 MG in 0.9 % SODIUM CHLORIDE 100 ML IV SCH (09:04)
--- NOTE | 2019-09-01 09:19 | Discharge Summary ---
Date of Service September 01, 2019 Admission HPI Per Admitting Provider The patient is a 69 years old male with past medical history of A. fib on apixaban, seizure disorder on Keppra, diabetes mellitus type 2 hypertension, hyperlipidemia, PE, intermittent rectal bleeding, history of CVA, history of nonischemic cardiomyopathy, aortic stenosis, metastatic rectal carcinoma, aortic valve replacement, implanted ICD defibrillator, chronic systolic congestive heart failure, sleep apnea, who was brought by family to the emergency room with decreased responsiveness started this morning. Patient is enrolled in hospice care since May 2020. The name of the agency is [employer] [facility]. Family has power of claims attorney if condition is terminal that he would not like to be resuscitated. ER physician had thorough discussion with the family as well as myself and family expressed their interest of patient being on the ventilator if necessary and intubated. Patient is Jain and in case that he would need blood transfusion due to very catholic believes he would not permit so as this was confirmed by the family. The family reports that patient had blood sugar of 70 in the morning and he was given pudding by family which raise his sugar to 94. They reported that they checked his BSG and it was 112. The family reports that patient was doing well on hospice and the hospice company decided to come 3 times a day instead of 5 times a day recently and that he was very active and interactive. They also report that patient is normally bedridden but able to eat on his own and carry on a conversation. Patient was not able to respond to questions about review of systems. Of the note recently patient Keppra was decreased to 500 mg nightly and patient was prior to that 1g nightly. Patient has known seizures for a long time since his CVA, but did not have any for many years up until today. Family reports that patient whole body was twitching and his oxygenation drops when he seizes. Patient is normally on 2 L of oxygen at home. The case was discussed this morning with Dr. Jacobson and family over the phone and family had opportunity to ask questions . In sum and substance pt rectal cancer is terminal and inoperable.He supposed to received final course FOLFOX chemotherapy in May. Dr. Jacobson recommended noninvasive procedures and the most intubation and ventilator. He also deferred other decisions to the family. He recommended to do CTA of the chest and ab domen and pelvis CT. Labs are reviewed:WBC is 12.39, hemoglobin 12, hematocrit 39.6, platelets 156, PT 11.4, INR 1.1, pH 7.18, PCO2 79, PO2 417, sodium 141, potassium 4, chloride 108, carbon dioxide 28, anion gap 4, BUN 14, creatinine 0.79, GFR 91, lactate 5.8, magnesium 1.7, total bilirubin, TSH 2.14. Urine pending. Keppra level pending, head /neck CT angiogram shows mixed plaque of the bilateral carotid bulbs, left greater than right resulting less than 50% luminal narrowing bilaterally. Calcified plaque of the basilar artery causing 60% luminal narrowing. No aneurysm, dissection or proximal branch occlusion. Moderate luminal narrowing at the origin of the bilateral posterior cerebral arteries. Fusiform dilatation of the ascending thoracic aorta 4.8 x 4.6 cm. Chest x-ray shows cardiac silhouette is enlarged. Paramedian sternotomy with prosthetic aortic valve. S/p placement of the endotracheal tube distal tip 3.9 cm superior to the bassam. Unchanged left subclavian [id number] catheter and right subclavian pacer/AICD. Resolution of the previously noted lateral left midlung opacity. Right hemidiaphragmatic elevation is noted with persistent pulmonary vascular congestion and interstitial coarsening. Mildly improved aeration of the left lung. Pleural effusion with bibasilar opacities redemonstrated. Degenerative changes of the shoulder and spine. Patient had g eneral seizure like activity while in emergency room. His oxygenation was dropping below 80% during seizure. He was on 15 L nonrebreather and later on on BiPAP and ABG demonstrated a pH of 7.02 and with CO2 retention of 79. Decision was made with permission of family to intubate patient and treat him for possible pneumonia versus acute systolic CHF exacerbation. Family is also aware that patient will probably have difficult time to be extubated later on and will need terminal wean. All possibilities were discussed with the family thoroughly and the day decided to go ahead with intubation. Principal Diagnosis Acute hypoxic respiratory failure due to aspiration pneumonia Discharge Exam Constitutional well developed and + frail appearing; no acute distress Eyes PERRL, conjunctivae normal, anicteric sclerae ENMT external ear and nose normal, oropharynx normal Neck trachea midline, no thyromegaly Respiratory no respiratory distress (intubated) Auscultation: + diminished lung sounds (bases) and + rhonchi Cardiovascular RRR, no murmur, no edema Gastrointestinal (Abdomen) normal bowel sounds, soft, nontender, no hepatosplenomegaly Musculoskeletal no cyanosis or clubbing, extremities motor strength 5/5 Skin no rashes, warm and dry Neurologic patellar DTR's 2+ bilat, sensation intact and PERRL, EOMI, accommodation nl, no face palsy, no dysarthria awake; no focal motor deficits Psychiatric A+Ox3, euthymic affect Lymphatic no cervical or axillary lymphadenopathy Discharge Data Allergies Allergy/AdvReac Type Severity Reaction Status Date / Time No Known Allergies Allergy Verified 08/28/19 10:26 Consultations 08/28/19 15:13 Consult Hematology Routine Consult Legal Collector Routine Consult Neurology Routine 08/29/19 12:17 Consult General Surgery Routine 08/30/19 12:26 Consult Palliative Care Routine Ordered Studies 08/28/19 10:07 CT head/brain wo con Stat 08/28/19 10:09 CT angio head w con Stat CT angio neck with con Stat 08/29/19 10:00 CT abd pelvis IV con only Routine CT angio chest PE protocol Routine Hospital Course (1) Acute respiratory failure: Admitted to the ICU-patient intubated for acute respiratory failure and respiratory acidosis with CO2 retention. due to likely aspiration pneumonia, aspiration event with seizure activity and inability to protect airway also with volume overload and acute on chronic heart failure with reduced EF had bronchoscopy on 08/28 with suctioning of mucous plug on the left extubated 08/29, breathing comfortably on nasal canula for two days plan to go home on hospice, POLST completed, will not return to hospital, just keep comfortable at home (2) Respiratory acidosis: resolved with ventilation this was due to respiratory arrest, hypoventilation (3) Pneumonia: aspiration pneumonia, likely around the time of seizure activity mucous plugging of the left mainstem bronchus s/p bronchoscopy with lavage on 08/28, tolerated well continue Zosyn and Doxycycline while admitted change to Augmentin at time of discharge, complete 7 more days (4) Acute on chronic HFrEF (heart failure with reduced ejection fraction): diuresed well with Lasix 40mg IV BID examines euvolemic EF is known to be 20% wants hospice on discharge ICD de-activated prior to discharge (5) Status epilepticus: Patient was taking 500 mg nightly Keppra at home (underdosed, supposed to be on 500mg BID) He received 1000 mg IV of Keppra in the ER. d/w Dr. Raygoza, EEG here shows generalized slowing but he is on sedatio continue Keppra 500mg PO BID should be fine as long as he takes appropriate dosing (6) Lactic acidosis: resolved with supportive care (7) Pulmonary embolus, right: CTA of the chest does not show obvious PE, although there is a lot of motion artifact Continue apixaban (8) Altered mental status: post ictal he was lethargic when weaned off of sedation prior to extubation much more alert and conversive today (9) ICD (implantable cardioverter-defibrillator) in place: Stable no issues at this time. turned off ICD prior to discharge (10) HLD (hyperlipidemia): statin therapy (11) HTN (hypertension): stable (12) DM type 2 (diabetes mellitus, type 2): Glycemic control per pharmacy. Patient was hypoglycemic before arrival to the emergency room (13) Afib: Continue apixaban 5 mg p.o. every morning. (14) Naye-rectal abscess: evaluated by general surgery, the abscess is draining, no role for surgery continue Zosyn while admitted, change to Augmentin, take for 7 more days patient would not want surgery will consult palliative care, patient would not want intubated if he declines again will return to home on hospice, POLST completed Total Time Total Time Spent Total Time Spent (In Minutes): 31 minutes Total Time Includes: Examination of the Patient, Discharge Planning, Medication Reconciliation, Communication With Other Providers (palliative care) and Other (several discussions with family members) Discharge Plan Discharge Items Patient Disposition: Hospice - Home Reason For Visit: SEIZURE LIKE ACTIVITY Discharge Diagnosis: Seizure Aspiration pneumonia Chronic systolic heart failure Metastatic rectal cancer Condition on Discharge: Fair Goals: hospice, comfort care stay at home Activity: As commented below Activity Comment: get rest, focus on comfort Non-emergency contact: Primary Care Provider Call non-emergency contact if: you have any medication questions and your symptoms worsen Follow-up/Referrals: Erika Negro [Primary Care Provider] - Diet: Regular Addtl Attending Provider Instructions: Medications: - KEPPRA: make sure you are taking 500mg TWICE a day - AUGMENTIN: 875mg twice a day for 7 more days Seizure causing aspiration, pneumonia, acute respiratory failure seizure likely due to underdosing Keppra, back on 500mg twice a day, continue this dose will continue Augmentin 875mg BID for 7 more days to treat pneumonia Perirectal abscess this is draining, no fever, WBC normal will continue Augmentin x 7 more days Metastatic rectal cancer will go back home on hospice POLST completed, do not return to the hospital, keep comfortable use Morphine as needed for pain or shortness of breath Pending Studies at Discharge: No Stand-Alone Forms: [facility] Medications and DC Order Prescriptions: New amoxicillin-pot clavulanate [Augmentin] 875-125 mg tablet 1 tab PO BID Qty: 14 RF: 0 fentanyl 50 mcg/hr patch 72 hour 1 patch TD Q72H Qty: 5 RF: 0 Continued docusate sodium [Stool Softener] 250 mg Capsule 500 mg PO BID RF: 0 tamsulosin [Flomax] 0.4 mg capsule 0.4 mg PO HS RF: 0 omeprazole 20 mg Tablet,Delayed Release (Dr/Ec) 20 mg PO QAM RF: 0 diclofenac sodium [Voltaren] 1 % gel 1 gm topical QID PRN (Reason: Pain) RF: 0 prednisone 5 mg tablet 20 mg PO QAM RF: 0 Eliquis 5 mg tablet 5 mg PO QAM RF: 0 morphine concentrate 100 mg/5 mL (20 mg/mL) solution 5 mg PO Q4 PRN (Reason: pain) RF: 0 Changed levetiracetam [Keppra] 500 mg tablet 500 mg PO BID 30 Days Qty: 60 RF: 0 Discontinued fentanyl 75 mcg/hr Patch 72 Hour 1 patch TRANSDERMAL Q72H RF: 0 magnesium oxide 400 mg magnesium tablet 400 mg PO QAM RF: 0 Discharge Orders: Discharge Order (Routine); Ordered 09/01/19 Ordered By: Popeye Sherman Admission Data Admit Date/Time: 08/28/19 12:54 Attending Provider: Popeye Sherman Admit Provider: Padmini Miller Primary Care Provider: Erika Negro Other Providers: Mike Jacobson V. ; Gaston Mandel ; Gaston Dailey ; Godwin Summers ; Suzy Banegas Other Interventions: Discharge Summary Assessment (RN) Last Done: 09/01/19 12:40 DC Date/Time DO NOT enter until pt leaves facility: 09/01/19 18:16 Coding Level of Care Code D/C Day Management >30 mins Diagnoses Acute respiratory failure J96.01; J96.02 Respiratory failure complication: hypoxia and hypercapnia Respiratory acidosis E87.2 Pneumonia J18.9 Laterality: unspecified laterality Lung location: unspecified part of lung Pneumonia type: due to unspecified organism Acute on chronic HFrEF (heart failure with reduced ejection fraction) I50.23 Status epilepticus G40.901 Lactic acidosis E87.2 Pulmonary embolus, right I26.99 Altered mental status R41.82 Altered mental status type: unspecified ICD (implantable cardioverter-defibrillator) in place Z95.810 HLD (hyperlipidemia) E78.2 Hyperlipidemia type: mixed hyperlipidemia HTN (hypertension) I10 Hypertension type: essential hypertension DM type 2 (diabetes mellitus, type 2) E11.9; Z79.4 Diabetes mellitus complication status: without complication Diabetes mellitus skilled nursing insulin use: with skilled nursing use Afib I48.2 Atrial fibrillation type: chronic Naye-rectal abscess K61.1
[2019-09-01] MEDS ORDERED: fentaNYL 50 MCG/HR TDSY TD SCH (09:50)
[2019-09-01 12:41] VITALS: BP 105/63; PULSE 76
[2019-09-01] MEDS ORDERED: CHECK FENTANYL PATCH PLACEMENT SCH (16:00)
== END 2019-09-01 18:16 | disposition hospice, home (50) | DRG 208 ==
LOC: ED 09:57 → 1E 12:54 → SUATTDRO 12:54 → 1E 13:32 → 2W 08-30 17:11